=== PATIENT | female | born 1955 | race Caucasian/White ===

== ENCOUNTER 2019-05-24 04:21 | Emergency (ER) | payer MEDICARE, SELFPAY ==
[2019-05-24 04:30] VITALS: BP 151/72; PULSE 85; RESP 20; TEMP 36.8; O2SAT 100
--- NOTE | 2019-05-24 05:11 | ED.FEMALEGU ---
HPI - Female Genitourinary General Chief complaint: Urogenital-Female Stated complaint: UTI Time Seen by Provider: 05/24/19 04:30 History of Present Illness HPI Narrative: Patient is a 63-year-old female who presents ER with dysuria occurring over the last 5 days. She has recently developed hematuria. Reports fevers and chills a day ago but none in the last 24 hours. She is without back or flank pain. Patient has history of urinary retention and has to self caths 4 times a day. She has been unable to get into her PCP and the weighted in urgent care couple days ago was too long. No alleviating factors despite taking Azo. Related Data Allergies Allergy/AdvReac Type Severity Reaction Status Date / Time No Known Allergies Allergy Unknown Verified 05/24/19 04:39 Review of Systems Review of Systems: All systems reviewed & are unremarkable except as noted in HPI and below Constitutional: Constitutional: Reports chills Comments: Fevers Gastrointestinal: Gastrointestinal: Denies abdominal pain, Denies nausea and Denies vomiting Genitourinary: Genitourinary: Reports hematuria, Reports nocturia and Reports dysuria Musculoskeletal: Musculoskeletal: Denies back pain and Denies muscle cramps PMFSH Past Medical History Medical History (Updated 05/24/19 @ 05:39 by Aubrey Arzola MD) Diabetes type 2, controlled Hyperlipidemia Hypertension Urinary retention Surgical History Surgical History (Updated 05/24/19 @ 05:37 by Aubrey Arzola MD) H/O: hysterectomy S/P CABG (coronary artery bypass graft) Family History Family History (Updated 11/10/16 @ 08:09 by DOCTOR UNKNOWN) Sibling Diabetes mellitus Family history of malignant neoplasm of thyroid Mother Family history of emphysema Social History Social History Smoking status: Former smoker Alcohol intake: never Exam Narrative: Exam Narrative: GENERAL: Well-appearing, well-nourished, and in no acute distress. HEAD: Normocephalic, atraumatic. CHEST: Clear to auscultation. No respiratory distress. HEART: Regular rate and rhythm. Normal peripheral pulses. ABDOMEN: Soft, nontender, nondistended, no CVA tenderness. EXTREMITIES: Normal range of motion. No edema. SKIN: Warm, dry, no rash. NEURO: Alert and oriented x3. Course Course Emergency Course: Ceftriaxone IV. Discharge with Keflex. Vital Signs Vital signs: Vital Signs Temperature 98.2 F 03/11/20 04:30 Pulse Rate 85 05/24/19 04:30 Respiratory Rate 20 05/24/19 04:30 Blood Pressure 151/72 H 05/24/19 04:30 Pulse Oximetry 100 05/24/19 04:30 Temperature 98.2 F 05/24/19 04:30 Pulse Rate 85 05/24/19 04:30 Respiratory Rate 20 05/24/19 04:30 Blood Pressure 151/72 H 05/24/19 04:30 Pulse Oximetry 100 05/24/19 04:30 MDM - Female Genitourinary Lab Data Labs: Lab Results 05/24/19 Range/Units 04:55 Urine Color Pending Urine Appearance Pending Urine pH Pending Ur Specific Mineral Pending Urine Protein Pending Urine Glucose (UA) Pending Urine Ketones Pending Ur Blood (Man) Pending Urine Nitrate Pending Urine Bilirubin Pending Urine Urobilinogen Pending Leukocyte Esterase Rfl Pending Urine Characteristics Cloudy Discharge Plan Discharge Clinical Impression: Urinary tract infection Qualifiers: Urinary tract infection type: acute cystitis Hematuria presence: with hematuria Qualified Code(s): N30.01 - Acute cystitis with hematuria Patient Disposition: Home, Self-Care Condition: Stable Instructions: Antibiotic Form, Urinary Tract Infection in Women (ED) Additional Instructions: Return the ER if you have fever over 100.4 ?F, you develop severe back pain, you cannot keep down food or water, you have additional concerns. Make sure to follow-up with your primary care doctor and have her obtain the sensitivities of the urine culture that was collected today. Prescriptions: New cepha
[2019-05-24 05:14] LABS: Add Urine Microscopic? YES; Appearance Urine Cloudy (Clear); Bacteria Urine 3+ /hpf; Bilirubin Urine Negative (Negative); Blood Urine 3+ (Negative); Glucose Urine UA 3+ mg/dL (Negative); Ketones Urine 1+ mg/dL (Negative); Leukocyte Esterase Ur Trace LEU/UL (Negative); Nitrate Urine Positive (Negative); Protein Urine 3+ mg/dL (Negative); RBC Urine >75 /hpf (0-2); Specific Grav Ur 1.016 (1.001-1.035); Urobilinogen Urine Negative mg/dL (<2.0); WBC Urine >75 /hpf
[2019-05-24 05:20] LABS: Color Urine Light Brown (Yellow)
[2019-05-24] MEDS: MORPHINE SULFATE 4 MG/ML INJ IV PUSH (05:56)
[2019-05-24 06:56] VITALS: BP 142/88; PULSE 74; RESP 14; TEMP 36.6; O2SAT 99
== END 2019-05-24 06:58 | disposition home or self-care (01) ==
PROVIDERS: Emergency Provider Emergency Medicine; PCP Family Medicine
DX: N30.01 Acute cystitis with hematuria (principal); E11.9 Type 2 diabetes mellitus without complications; E78.5 Hyperlipidemia, unspecified; I10 Essential (primary) hypertension
CPT/HCPCS: 81001; 87077; 87086; 87088; 87186; 96365; 96375; 99284; J0696; J2270

== ENCOUNTER 2019-09-12 11:36 | Outpatient (CLI) | payer MEDICARE, SELFPAY ==
[2019-09-12 12:16] LABS: Alanine Aminotransferase 15 U/L (4-35); Albumin Level 3.9 g/dL (3.5-5.1); Alkaline Phosphatase 127 U/L (38-126); Aspartate Amino Transferase 18 U/L (14-36); Bilirubin,Total 0.1 mg/dL (0.2-1.3); Blood Urea Nitrogen 23 mg/dL (7-17); Carbon Dioxide 25 mmol/L (22-30); Chloride 100 mmol/L (98-107); Cholesterol 200 mg/dL (0-200); Estimated Glomerular Filt Rate 56; Glucose 400 mg/dL (65-105); HDL Direct 37 mg/dL; Potassium 4.6 mmol/L (3.4-5.0); Sodium 135 mmol/L (137-145); Triglycerides 170 mg/dL (<150)
[2019-09-12 12:18] LABS: Hemoglobin A1C 12.4 % (<5.7)
[2019-09-12 12:27] LABS: LDL Cholesterol Direct 132 mg/dL
[2019-09-12 12:38] LABS: Creatinine Urine 38.7 mg/dL
[2019-09-12 13:45] LABS: MALB Creatinine Ratio 1885.8 mg/g (0-30); Microalbumin Urine Random 729.8 mg/L (0-16.7)
== END 2019-09-12 11:37 | disposition home or self-care (01) ==
PROVIDERS: PCP Family Medicine; Visit Provider Family Medicine
DX: E11.22 Type 2 diabetes mellitus with diabetic chronic kidney disease (principal)
CPT/HCPCS: 36415; 72100; 80053; 80061; 82043; 83036

== ENCOUNTER 2019-09-12 12:13 | Outpatient (CLI) | payer MEDICARE, SELFPAY ==
--- NOTE | ~2019-09-12 | XR_ITS ---
XR lumbar spine 2-3V 09/12/2019 12:27 Indication: Back pain Procedure: 3 views lumbar spine Comparison: No prior studies for comparison. Findings: Normal lumbar lordosis. There is disc narrowing at L1-2, L2-3 and L5-S1. There are facet de generative changes at L4-5 and L5-S1. No acute fracture or traumatic malalignment. Pedicles intact. S acral foramen are symmetric. There is a right pseudoarticulation at L5-S1. Prominent marginal osteoph ytes at multiple levels. Impression: 1: Moderate lumbar spondylosis. Reviewed, dictated and finalized at location A. Impression: 1: Moderate lumbar spondylosis.
== END 2019-09-12 12:14 | disposition home or self-care (01) ==
LOC: ANHIMG 12:16
PROVIDERS: PCP Family Medicine; Visit Provider Family Medicine
DX: M54.41 Lumbago with sciatica, right side (principal); M47.816 Spondylosis without myelopathy or radiculopathy, lumbar region
CPT/HCPCS: 72100

== ENCOUNTER 2019-12-15 10:55 | Outpatient (CLI) | payer MEDICARE, SELFPAY ==
[2019-12-15 11:34] LABS: Add Urine Microscopic? YES; Appearance Urine Turbid (Clear); Bilirubin Urine Negative (Negative); Blood Urine 2+ (Negative); Color Urine Yellow (Yellow); Glucose Urine UA 3+ mg/dL (Negative); Ketones Urine Negative (Negative); Leukocyte Esterase Ur 3+ LEU/UL (Negative); Nitrate Urine Negative (Negative); Protein Urine 2+ mg/dL (Negative); RBC Urine 21-50 /hpf (0-2); Specific Grav Ur 1.013 (1.001-1.035); Squamous Epithelial Cell Urine Rare /hpf (Few); Urobilinogen Urine Negative mg/dL (<2.0); WBC Clumps Urine Present /HPF; WBC Urine >75 /hpf
== END 2019-12-15 10:56 | disposition home or self-care (01) ==
LOC: ANHLAB 11:00
PROVIDERS: PCP Family Medicine; Visit Provider Family Medicine
DX: N39.0 Urinary tract infection, site not specified (principal)
CPT/HCPCS: 81001; 87077; 87086; 87088; 87186

== ENCOUNTER 2020-05-02 11:51 | Outpatient (CLI) | payer MEDICARE, SELFPAY ==
[2020-05-02 12:26] LABS: Hemoglobin A1C 12.4 % (<5.7)
[2020-05-02 12:35] LABS: Alanine Aminotransferase 15 U/L (4-35); Albumin Level 3.8 g/dL (3.5-5.1); Alkaline Phosphatase 98 U/L (38-126); Anion Gap 4 mmol/L (8-16); Aspartate Amino Transferase 22 U/L (14-36); Bilirubin,Total 0.3 mg/dL (0.2-1.3); Blood Urea Nitrogen 19 mg/dL (7-17); Calcium 8.6 mg/dL (8.4-10.2); Carbon Dioxide 26 mmol/L (22-30); Chloride 107 mmol/L (98-107); Cholesterol 280 mg/dL (0-200); Estimated Glomerular Filt Rate 50; Glucose 231 mg/dL (65-105); HDL Direct 40 mg/dL; Sodium 137 mmol/L (137-145); Triglycerides 279 mg/dL (<150)
[2020-05-02 12:40] LABS: LDL Cholesterol Direct 177 mg/dL
[2020-05-02 12:44] LABS: Potassium 4.4 mmol/L (3.4-5.0)
[2020-05-02 17:34] LABS: Microalbumin Urine Random > 1140.0 mg/L (0-16.7)
== END 2020-05-02 11:52 | disposition home or self-care (01) ==
LOC: ANHLAB 11:56
PROVIDERS: PCP Family Medicine; Visit Provider Family Medicine
DX: E11.22 Type 2 diabetes mellitus with diabetic chronic kidney disease (principal)
CPT/HCPCS: 36415; 80053; 80061; 82043; 83036

== ENCOUNTER 2020-06-18 13:48 | Outpatient (CLI) | payer MEDICARE, SELFPAY ==
--- NOTE | ~2020-06-18 | US_ITS ---
EXAMINATION: US renal BI DATE: 06/18/2020 15:10 INDICATION: Proteinuria. Chronic kidney disease. TECHNIQUE: Multiple ultrasound grayscale images of the kidneys were obtained. COMPARISON: None. FINDINGS: The right kidney measures 10.0 x 4.3 x 5.3 cm. The left kidney measures 11.8 x 6.6 x 6.8 cm. The kidn eys demonstrate normal parenchymal echogenicity. There is no hydronephrosis. The bladder is normal. IMPRESSION: 1. Normal kidneys. No hydronephrosis. Reviewed, dictated and finalized at location A.
== END 2020-06-18 13:49 ==
PROVIDERS: Visit Provider Internal Medicine Nephrology
DX: R80.8 Other proteinuria (principal); E11.29 Type 2 diabetes mellitus with other diabetic kidney complication; I12.9 Hypertensive chronic kidney disease with stage 1 through stage 4 chronic kidney disease, or unspecified chronic kidney disease
CPT/HCPCS: 76775

== ENCOUNTER 2020-07-02 10:11 | Outpatient (CLI) | payer MEDICARE, SELFPAY ==
[2020-07-02 11:04] LABS: Albumin Level 3.9 g/dL (3.5-5.1); Anion Gap 8 mmol/L (8-16); Blood Urea Nitrogen 30 mg/dL (7-17); Calcium 8.6 mg/dL (8.4-10.2); Carbon Dioxide 25 mmol/L (22-30); Chloride 101 mmol/L (98-107); Estimated Glomerular Filt Rate 45; Glucose 407 mg/dL (65-105); Phosphorus 4.9 mg/dL (2.5-4.5); Potassium 4.9 mmol/L (3.4-5.0); Sodium 134 mmol/L (137-145)
[2020-07-02 11:08] LABS: Total Protein Urine Random 171 mg/dL
[2020-07-02 11:10] LABS: Sodium Urine Random 38 meq/L
[2020-07-02 11:15] LABS: Complement C3 110 mg/dL (88-165)
[2020-07-02 11:18] LABS: Eosinophil Urine Rare % (None Seen)
[2020-07-08 04:04] LABS: Creatinine, Random Urine 37 mg/dL (20-275); Total Protein/Creatinine Ratio 3946 mg/g creat (21-161)
[2020-07-08 06:20] LABS: Albumin 3.5 g/dL (3.8-4.8); Alpha 1 Globulin 0.3 g/dL (0.2-0.3); Alpha 2 Globulin 0.8 g/dL (0.5-0.9); Beta 1 Globulin 0.5 g/dL (0.4-0.6); Gamma Globulin 0.9 g/dL (0.8-1.7); Protein, Total 6.5 g/dL (6.1-8.1)
[2020-07-08 06:23] LABS: Anti Glomerular Basement Memb <1.0 AI (<1.0)
[2020-07-09 11:38] LABS: ANCA Screen Negative (Negative)
== END 2020-07-02 10:12 | disposition home or self-care (01) ==
PROVIDERS: PCP Family Medicine; Visit Provider Internal Medicine Nephrology
DX: R80.8 Other proteinuria (principal); E11.29 Type 2 diabetes mellitus with other diabetic kidney complication; I12.9 Hypertensive chronic kidney disease with stage 1 through stage 4 chronic kidney disease, or unspecified chronic kidney disease; N18.31 Chronic kidney disease, stage 3a
CPT/HCPCS: 36415; 80069; 82570; 83520; 84155; 84156; 84165; 84166; 84300; 85999; 86021; 86038; 86160; 86225

== ENCOUNTER 2020-07-23 14:45 | Outpatient (RCR) | payer MEDICARE, SELFPAY ==
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
--- NOTE | 2020-07-18 08:22 | PCPTNOTE ---
Patient called & cancelled scheduled appointment this date due to sickness.
--- NOTE | 2020-07-25 10:36 | PCPTNOTE ---
Patient did not show up for scheduled appointment this date. Attempted to call pt, but unable to leave voicemail message.
--- NOTE | 2020-07-25 11:52 | PCPTNOTE ---
Pt called to cancel her remaining her visits due to family emergency.
--- NOTE | 2020-08-14 08:11 | PCPTNOTE ---
Admitting Provider: Attending Provider: Lisa German, Patient:Kylie Marquez Date of :1955 Discharge Note Patient has not returned for any further treatments since 07/23/2020, therefore she will be discharged at this time. Patient?s initial visit was on 06/11/2020 and she had a total of 12 visits. She cancelled her remaining therapy visits due to family obligations. The goals have been partially met since no change in function since last update. Thank you for referring this patient to [facility]. Please review, sign, date and return this discharge summary PEGGY. I have been updated about the patient's current status and I agree with discharge from the above service at this time. Referring Physician Date
== END 2020-08-14 12:55 | disposition home or self-care (01) ==
LOC: ANHPT 14:45
PROVIDERS: PCP Family Medicine; Referring Provider Family Medicine; Visit Provider Family Medicine
DX: M47.896 Other spondylosis, lumbar region (principal)
CPT/HCPCS: 97014; 97110; 97140; 97162; 97530; G0283

== ENCOUNTER 2020-12-17 12:38 | Outpatient (CLI) | payer MEDICARE, SELFPAY ==
[2020-12-17 14:12] LABS: Parathyroid Intact 42.6 pg/mL (7.5-53.5)
[2020-12-17 14:26] LABS: Albumin Level 3.8 g/dL (3.5-5.1); Anion Gap 10 mmol/L (8-16); Blood Urea Nitrogen 23 mg/dL (7-17); Calcium 9.2 mg/dL (8.4-10.2); Carbon Dioxide 24 mmol/L (22-30); Chloride 98 mmol/L (98-107); Estimated Glomerular Filt Rate 45; Glucose 543 mg/dL (65-110); Phosphorus 4.6 mg/dL (2.5-4.5); Potassium 4.8 mmol/L (3.4-5.0); Sodium 132 mmol/L (137-145); Vitamin D 25 Hydroxy 20.2 ng/mL
[2020-12-17 15:14] LABS: Creatinine Urine 45.1 mg/dL
[2020-12-17 15:42] LABS: Total Protein Urine Random 307 mg/dL; Ur Ttl Prot Creatinine Ratio 6.81 mg/mg (0-0.20)
== END 2020-12-17 12:39 | disposition home or self-care (01) ==
PROVIDERS: PCP Family Medicine; Visit Provider Internal Medicine Nephrology
DX: I12.9 Hypertensive chronic kidney disease with stage 1 through stage 4 chronic kidney disease, or unspecified chronic kidney disease (principal); N18.31 Chronic kidney disease, stage 3a; E11.29 Type 2 diabetes mellitus with other diabetic kidney complication; R80.0 Isolated proteinuria; R53.81 Other malaise
CPT/HCPCS: 36415; 80069; 82306; 82570; 83970; 84156

== ENCOUNTER 2021-06-04 10:05 | Outpatient (CLI) | payer MEDICARE, SELFPAY ==
[2021-06-04 10:39] LABS: Hemoglobin A1C 11.1 % (<5.7)
== END 2021-06-04 10:06 | disposition home or self-care (01) ==
LOC: ANHLAB 10:07
PROVIDERS: PCP Physician Assistant; Visit Provider Physician Assistant
DX: E11.9 Type 2 diabetes mellitus without complications (principal)
CPT/HCPCS: 36415; 83036

== ENCOUNTER 2021-06-19 12:14 | Outpatient (CLI) | payer MEDICARE, SELFPAY ==
[2021-06-19 12:57] LABS: Albumin Level 3.7 g/dL (3.5-5.1); Anion Gap 8 mmol/L (8-16); Blood Urea Nitrogen 26 mg/dL (7-17); Carbon Dioxide 23 mmol/L (22-30); Chloride 107 mmol/L (98-107); Estimated Glomerular Filt Rate 38; Glucose 148 mg/dL (65-110); Phosphorus 5.2 mg/dL (2.5-4.5); Potassium 4.1 mmol/L (3.4-5.0); Sodium 138 mmol/L (137-145)
[2021-06-19 13:30] LABS: Total Protein Urine Random > 600 mg/dL
[2021-06-19 13:33] LABS: Vitamin D 25 Hydroxy 20.2 ng/mL
== END 2021-06-19 12:15 | disposition home or self-care (01) ==
PROVIDERS: PCP Physician Assistant; Visit Provider Internal Medicine Nephrology
DX: N18.31 Chronic kidney disease, stage 3a (principal); R80.8 Other proteinuria; E11.29 Type 2 diabetes mellitus with other diabetic kidney complication; E55.9 Vitamin D deficiency, unspecified; I12.9 Hypertensive chronic kidney disease with stage 1 through stage 4 chronic kidney disease, or unspecified chronic kidney disease
CPT/HCPCS: 36415; 80069; 82306; 82570; 84156

== ENCOUNTER 2021-07-14 14:55 | Emergency (ER) | payer MEDICARE, SELFPAY ==
[2021-07-14] VITALS (32 sets, daily range): BP systolic 134–184; BP diastolic 60–104; PULSE 73–91; RESP 11–19; TEMP 36.8; O2SAT 97–100
--- NOTE | ~2021-07-14 | XR_ITS ---
EXAMINATION: XR chest 2V DATE: 07/14/2021 16:04 INDICATION: Weakness. Lower leg swelling. TECHNIQUE: Frontal and lateral views of the chest were obtained. COMPARISON: Chest 2 views 08/21/2017 FINDINGS: The chest demonstrates clear lungs without pneumonia, pleural effusion, or pneumothorax. Th e heart size is normal. Median sternotomy wires and mediastinal surgical clips are seen, likely from prior coronary artery bypass grafting. IMPRESSION: 1. No acute cardiopulmonary disease. Reviewed, dictated and finalized at location B.
--- NOTE | 2021-07-14 15:09 | ECG_ITS ---
Measurements Intervals [place] Rate: 86 P: [place]: 0 QRS: 65 QRSD: 87 T: 40 QT: 318 QTc: 380 Interpretive Statements ATRIAL FLUTTER/TACHYCARDIA ANTEROSEPTAL INFARCT, AGE INDETERMINATE BORDERLINE ST-T WAVE ABNORMALITY- INF/LAT LEADS ABNORMAL ECG Electronically Signed On 07-14-2021 15:37:29 CDT by Deondre Roldan D.O.
[2021-07-14 15:23] LABS: Basophils Percent Auto 0.6 % (0.2-1.2); Eosinophils Absolute Auto 0.2 K/mm3 (0-0.3); Eosinophils Percent Auto 2.4 % (0-4.4); Hematocrit 37.2 % (37.0-47.0); Hemoglobin 11.7 g/dL (12.0-15.0); Immature Granulocyte Absolute 0.02 K/mm3 (0.00-0.031); Immature Granulocyte Percent A 0.3 % (0-0.5); Lymphocytes Absolute Auto 1.91 K/mm3 (0.9-3.2); Lymphocytes Percent Auto 27.4 % (18.3-44.2); Mean Corpuscular HGB Conc 31.5 g/dl (32-36); Mean Corpuscular Hemoglobin 28.7 pg (26-34); Mean Corpuscular Volume 91.2 fl (80-100); Mean Platelet Volume 10.4 fl (7.4-10.4); Monocytes Absolute Auto 0.5 K/mm3 (0.1-0.6); Monocytes Percent Auto 6.6 % (2.6-8.5); Neutrophils Absolute Auto 4.4 K/mm3 (1.3-6.7); Neutrophils Percent Auto 62.7 % (45.5-73.1); Platelet Count Result 277 k/mm3 (150-375); Red Blood Count 4.08 M/mm3 (4.2-5.4); Red Cell Distribution Width 13.2 % (11.5-14.5)
[2021-07-14 15:37] LABS: Alanine Aminotransferase 26 U/L (4-35); Albumin Level 3.8 g/dL (3.5-5.1); Alkaline Phosphatase 131 U/L (38-126); Anion Gap 10 mmol/L (8-16); Aspartate Amino Transferase 29 U/L (14-36); Bilirubin,Total 0.3 mg/dL (0.2-1.3); Blood Urea Nitrogen 28 mg/dL (7-17); Calcium 9.3 mg/dL (8.4-10.2); Carbon Dioxide 21 mmol/L (22-30); Chloride 105 mmol/L (98-107); Estimated CRCL calculation 59 ml/min; Estimated Glomerular Filt Rate 45; Glucose 189 mg/dL (65-110); Potassium 4.3 mmol/L (3.4-5.0); Sodium 136 mmol/L (137-145)
[2021-07-14 15:50] LABS: Prothrombin Time 13.1 Seconds (11.1-14.7)
[2021-07-14 15:51] LABS: Partial Thromboplastin Time 26.4 SECONDS (22.3-36.8)
[2021-07-14 17:35] LABS: Appearance Urine Cloudy (Clear); Bilirubin Urine Negative (Negative); Blood Urine 2+ (Negative); Color Urine Yellow (Yellow); Glucose Urine UA 1+ mg/dL (Negative); Ketones Urine Negative (Negative); Leukocyte Esterase Ur 3+ LEU/UL (Negative); Nitrate Urine Negative (Negative); Protein Urine 3+ mg/dL (Negative); Urobilinogen Urine 0.2 mg/dL (<2.0)
[2021-07-14 17:50] LABS: Bacteria Urine 3+ /hpf; RBC Urine >75 /hpf (0-2); Squamous Epithelial Cell Urine Occasional /hpf (Few); WBC Clumps Urine Present /HPF; WBC Urine >75 /hpf
[2021-07-14 17:59] LABS: Add Urine Microscopic? YES
[2021-07-14 19:03] LABS: NT Pro B Type Natriuretic Pept 1620 pg/mL (5-100)
--- NOTE | 2021-07-14 19:14 | ED.WEAKNESS ---
HPI - Weakness General Chief complaint: Weakness Stated complaint: swelling to legs, uti symptoms Time Seen by Provider: 07/14/21 18:07 Source: patient Mode of arrival: ambulatory History of Present Illness HPI Narrative: 65-year-old female presents today with complaints of weakness, feeling off balance, and bilateral lower extremity swelling since . Patient has not previously been seen for any of these issues. Patient has a history of CABG, hyperlipidemia, and hypertension. Patient currently denies any chest pain, shortness of breath, difficulty in breathing, cough, runny nose, fevers, body aches, but does endorse urinary symptoms: Urinary frequency and cloudy urine. Patient does straight cath at home and noticed it is painful which is unusual for her. Related Data Allergies Allergy/AdvReac Type Severity Reaction Status Date / Time No Known Allergies Allergy Unknown Verified 05/24/19 04:39 Review of Systems Review of Systems: CONSTITUTIONAL: Denies fever, chills, or sweats. EYES: Denies visual changes, redness, or discharge. ENT: Denies rhinorrhea, congestion, sore throat, or otalgia. CARDIOVASCULAR: Bilateral lower extremity edema +2-3 pitting. Denies chest pain, palpitations. RESPIRATORY: Denies cough or dyspnea. GASTROINTESTINAL: Denies abdominal pain, nausea, vomiting, or diarrhea. GENITOURINARY: Frequency and painful straight cath. Denies dysuria. SKIN: Denies rash or itching. MUSCULOSKELETAL: Denies back pain, joint pain, or myalgia. NEUROLOGIC: Denies headache, numbness, dizziness, or weakness. PSYCHIATRIC: Denies anxiety or depression. [facility] Past Medical History Medical History (Updated 07/15/21 @ 00:31 by Stefany Evans APRN) Diabetes type 2, controlled Hyperlipidemia Hypertension Urinary retention Surgical History Surgical History (Updated 05/24/19 @ 05:37 by Aubrey Arzola MD) H/O: hysterectomy S/P CABG (coronary artery bypass graft) Family History Family History (Updated 11/10/16 @ 08:09 by DOCTOR UNKNOWN) Sibling Diabetes mellitus Family history of malignant neoplasm of thyroid Mother Family history of emphysema Social History Social History Smoking status: Former smoker Alcohol intake: never Exam Narrative: GENERAL: Well-appearing, well-nourished, and in no acute distress. HEAD: Normocephalic, atraumatic. EYES: PERRLA and EOMI. ENT: Nares clear, no rhinorrhea or epistaxis. Mucous membranes moist. Oropharynx without tonsillar hypertrophy exudate or other lesions. Bilateral TMs pearly clancy nonbulging NECK: Supple. No adenopathy or masses. No carotid bruits or JVD CHEST: Clear to auscultation. No respiratory distress. No wheezes rales or rhonchi HEART: Regular rate and rhythm. No murmur heard. Normal peripheral pulses. ABDOMEN: Soft, nontender, nondistended, normal active bowel sounds. EXTREMITIES: +2-3 bilateral lower extremity pitting edema up to mid thigh. Normal range of motion. SKIN: Warm, dry, no rash. NEURO: No focal deficits. Alert and oriented x3. PSYCH: Normal mood and affect. 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 Lyn in agreement with plan for discharge home on HCTZ due to patient previously being on it and their office is will follow up with the patient. Vital Signs Vital signs: Vital Signs Temperature 36.8 C 07/14/21 15:06 Pulse Rate 91 07/14/21 15:06 Respiratory Rate 18 07/14/21 15:06 Blood Pressure 184/104 H 07/14/21 15:06 Pulse Oximetry 100 07/14/21 15:06 Temperature 36.8 C 07/14/21 15:06 Pulse Rate 79 07/14/21 22:54 Respiratory Rate 17 07/14/21 22:54 Blood Pressure 178/98 H 07/14/21 22:54 Pulse Oximetry 97 07/14/21 19:16 MDM - Weakness MDM Narrative Medical decision making narrative: HPI as noted White count 7.0, hemoglobin 11.7 sodium 136, potassium 4.3, chloride 105, BUN 28, creatinine 1.2, GFR 45, BNP 1620. Urine cloudy and positiv
[2021-07-14 19:38] LABS: Glucose Point of Care 57 mg/dl (65-105)
[2021-07-14 20:21] LABS: Troponin I 0.013 ng/mL (0.000-0.034)
[2021-07-14] MEDS: FUROSEMIDE INJ 40 MG/4 ML VIAL IV PUSH (22:48)
== END 2021-07-14 23:02 | disposition home or self-care (01) ==
PROVIDERS: Emergency Medicine; Emergency Provider Nurse Practitioner Family; PCP Physician Assistant
DX: N39.0 Urinary tract infection, site not specified (principal); M79.89 Other specified soft tissue disorders; I10 Essential (primary) hypertension; E11.9 Type 2 diabetes mellitus without complications; E78.5 Hyperlipidemia, unspecified; Z95.1 Presence of aortocoronary bypass graft; I48.92 Unspecified atrial flutter; R94.31 Abnormal electrocardiogram [ECG] [EKG]
CPT/HCPCS: 36415; 71046; 80053; 81001; 82948; 83880; 84484; 85025; 85610; 85730; 87077; 87086; 87186; 93005; 96365; 96375; 99284; J0696; J1940

== ENCOUNTER 2021-08-13 16:26 | Outpatient (CLI) | payer MEDICARE, SELFPAY ==
[2021-08-13 17:06] LABS: Basophils Absolute Auto 0.1 K/mm3 (0.0-0.1); Basophils Percent Auto 0.6 % (0.2-1.2); Eosinophils Absolute Auto 0.2 K/mm3 (0-0.3); Eosinophils Percent Auto 2.2 % (0-4.4); Hematocrit 39.2 % (37.0-47.0); Hemoglobin 12.8 g/dL (12.0-15.0); Immature Granulocyte Absolute 0.04 K/mm3 (0.00-0.031); Immature Granulocyte Percent A 0.4 % (0-0.5); Lymphocytes Absolute Auto 3.16 K/mm3 (0.9-3.2); Lymphocytes Percent Auto 33.3 % (18.3-44.2); Mean Corpuscular HGB Conc 32.7 g/dl (32-36); Mean Corpuscular Hemoglobin 28.5 pg (26-34); Mean Corpuscular Volume 87.3 fl (80-100); Mean Platelet Volume 10.7 fl (7.4-10.4); Monocytes Absolute Auto 0.5 K/mm3 (0.1-0.6); Neutrophils Absolute Auto 5.6 K/mm3 (1.3-6.7); Neutrophils Percent Auto 58.5 % (45.5-73.1); Platelet Count Result 276 k/mm3 (150-375); Red Blood Count 4.49 M/mm3 (4.2-5.4); Red Cell Distribution Width 13.3 % (11.5-14.5); White Blood Count 9.5 K/mm3 (4.5-10.0)
[2021-08-13 17:16] LABS: Alanine Aminotransferase 18 U/L (6-35); Albumin Level 4.3 g/dL (3.5-5.1); Alkaline Phosphatase 119 U/L (38-126); Anion Gap 9 mmol/L (8-16); Aspartate Amino Transferase 29 U/L (14-36); Bilirubin,Total 0.2 mg/dL (0.2-1.3); Blood Urea Nitrogen 44 mg/dL (7-17); Carbon Dioxide 26 mmol/L (22-30); Chloride 98 mmol/L (98-107); Cholesterol 211 mg/dL (0-200); Estimated Glomerular Filt Rate 22; Glucose 301 mg/dL (65-110); HDL Direct 42 mg/dL; Potassium 4.7 mmol/L (3.4-5.0); Sodium 133 mmol/L (137-145); Triglycerides 354 mg/dL (<150)
[2021-08-13 17:27] LABS: LDL Cholesterol Direct 106 mg/dL
[2021-08-13 17:44] LABS: Thyroid Stimulating Hormone 0.361 uIU/mL (0.465-4.680)
[2021-08-13 17:49] LABS: Hemoglobin A1C 9.5 % (<5.7)
[2021-08-13 18:26] LABS: Folic Acid > 20.0 ng/mL (2.76->20)
[2021-08-13 18:34] LABS: Free T4 Free Thyroxine 1.28 ng/mL (0.78-2.19)
[2021-08-16 04:27] LABS: Triiodothyronine T3 Free 2.6 pg/mL (2.3-4.2)
[2021-08-16 04:58] LABS: Thyroid Peroxidase Antibodies <1 IU/mL (<9)
== END 2021-08-13 16:27 | disposition home or self-care (01) ==
LOC: ANHLAB 16:29
PROVIDERS: PCP Physician Assistant; Visit Provider Internal Medicine Endocrinology, Diabetes & Metabolism
DX: E11.65 Type 2 diabetes mellitus with hyperglycemia (principal); R53.83 Other fatigue; E78.5 Hyperlipidemia, unspecified
CPT/HCPCS: 36415; 80053; 80061; 82607; 82746; 83036; 84439; 84443; 84481; 85025; 86376

== ENCOUNTER 2021-08-14 10:46 | Outpatient (CLI) | payer MEDICARE, SELFPAY ==
[2021-08-14 12:05] LABS: Creatinine Urine 34.9 mg/dL
[2021-08-14 14:58] LABS: MALB Creatinine Ratio 1798.9 mg/g (0-30); Microalbumin Urine Random 627.8 mg/L (0-16.7)
== END 2021-08-14 10:47 | disposition home or self-care (01) ==
LOC: ANHLAB 10:52
PROVIDERS: PCP Physician Assistant; Visit Provider Internal Medicine Endocrinology, Diabetes & Metabolism
DX: E11.65 Type 2 diabetes mellitus with hyperglycemia (principal); R53.83 Other fatigue; E78.5 Hyperlipidemia, unspecified
CPT/HCPCS: 82043

== ENCOUNTER 2021-09-21 22:24 | Inpatient (IN) | payer MEDICARE, SELFPAY ==
--- NOTE | ~2021-09-21 | CT_ITS ---
EXAMINATION: CT foot RT wo con DATE: 09/22/2021 00:21 INDICATION: Right foot ulcer. TECHNIQUE: Computed tomography (CT) of the right foot and ankle was performed without intravenous con trast. Automated exposure control and iterative reconstruction technique were employed. The dose-deepak th product was 630.76 mGy-cm. COMPARISON: None FINDINGS: There is an ulcer of the lateral forefoot with soft tissue gas. There is severe fatty atrop hy of the musculature. There is a comminuted fracture of head of fifth metatarsal. There are erosions of base of fifth proximal phalanx. There is mild osteoarthritis of some of the interphalangeal joint s and midfoot joints. There are enthesophytes at the posterior plantar aspects of calcaneal tuberosit y. IMPRESSION: 1. Acute osteomyelitis involving the fifth metatarsal and base of fifth proximal phalanx with comminu jenna fracture of head of fifth metatarsal. Reviewed, dictated and finalized at location A. IMPRESSION: 1. Acute osteomyelitis involving the fifth metatarsal and base of fifth proxima l phalanx with comminuted fracture of head of fifth metatarsal.
[2021-09-21 22:28] VITALS: BP 130/62; PULSE 114; RESP 20; TEMP 37.1; O2SAT 100
[2021-09-21 23:00] VITALS: BP 135/75; PULSE 101; RESP 20; O2SAT 100
[2021-09-21 23:30] LABS: Basophils Absolute Auto 0.1 K/mm3 (0.0-0.1); Basophils Percent Auto 0.4 % (0.2-1.2); Hematocrit 30.2 % (37.0-47.0); Hemoglobin 9.9 g/dL (12.0-15.0); Immature Granulocyte Absolute 0.16 K/mm3 (0.00-0.031); Immature Granulocyte Percent A 1.1 % (0-0.5); Lymphocytes Absolute Auto 1.21 K/mm3 (0.9-3.2); Lymphocytes Percent Auto 8.6 % (18.3-44.2); Mean Corpuscular HGB Conc 32.8 g/dl (32-36); Mean Corpuscular Hemoglobin 27.4 pg (26-34); Mean Corpuscular Volume 83.7 fl (80-100); Monocytes Absolute Auto 0.8 K/mm3 (0.1-0.6); Monocytes Percent Auto 5.7 % (2.6-8.5); Neutrophils Absolute Auto 11.8 K/mm3 (1.3-6.7); Neutrophils Percent Auto 84.2 % (45.5-73.1); Platelet Count Result 490 k/mm3 (150-375); Red Blood Count 3.61 M/mm3 (4.2-5.4); Red Cell Distribution Width 13.6 % (11.5-14.5)
[2021-09-21] MEDS: SODIUM CHLORIDE 0.9% IV 1,000 ML 999 ML IV CONT (23:30)
--- NOTE | 2021-09-21 23:32 | ED.WOUNDLAC ---
HPI - Wound/Laceration General Chief Complaint: Wound/Laceration Stated Complaint: wound to right foot Time Seen by Provider: 09/21/21 22:51 Source: patient History of Present Illness HPI narrative: Patient presents with a right foot wound. Patient reports history of diabetes has neuropathy she is noted a black spot on her foot for past month was seen by her wool spotter there was concern for bone infection she was scheduled for a bone scan her symptoms got progressively worse and noted and family noted purulent drainage to the came to the ER for further evaluation. Patient reports her wound does not hurt denies any fevers chills cough congestion. Family also noted that her toe is very discolored. Related Data Home Medications Medication Instructions Recorded Confirmed amoxicillin 500 mg-potassium tablet 09/21/21 clavulanate 125 mg tablet apixaban 5 mg tablet (Eliquis) 5 mg BID 09/21/21 atorvastatin 40 mg tablet 40 tablet DAILY 09/21/21 furosemide 40 mg tablet 40 mg BID 09/21/21 lisinopril 40 mg tablet tablet 09/21/21 Allergies Allergy/AdvReac Type Severity Reaction Status Date / Time No Known Allergies Allergy Unknown Verified 09/21/21 23:25 Review of Systems Review of Systems: CONSTITUTIONAL: Denies fever, chills, or sweats. EYES: Denies visual changes, redness, or discharge. ENT: Denies rhinorrhea, congestion, sore throat, or otalgia. CARDIOVASCULAR: Denies chest pain, palpitations, or edema. RESPIRATORY: Denies cough or dyspnea. GASTROINTESTINAL: Denies abdominal pain, nausea, vomiting, or diarrhea. GENITOURINARY: Denies dysuria or hematuria. SKIN: Denies rash or itching. MUSCULOSKELETAL: Denies back pain, joint pain, or myalgia. NEUROLOGIC: Denies headache, numbness, dizziness, or weakness. PSYCHIATRIC: Denies anxiety or depression. All systems reviewed & are unremarkable except as noted in HPI and below PMFSH Past Medical History Medical History (Updated 09/22/21 @ 03:47 by Demetra Gonzales DO) Diabetes type 2, controlled Hyperlipidemia Hypertension Urinary retention Surgical History Surgical History H/O: hysterectomy S/P CABG (coronary artery bypass graft) Family History Family History Sibling Diabetes mellitus Family history of malignant neoplasm of thyroid Mother Family history of emphysema Social History Social History Smoking status: Former smoker Alcohol intake: never Exam Narrative: GENERAL: Well-appearing, well-nourished, and in no acute distress. HEAD: Normocephalic, atraumatic. EYES: PERRLA and EOMI. ENT: Nares clear, no rhinorrhea or epistaxis. Mucous membranes moist. NECK: Supple. No masses. No JVD EXTREMITIES: Large open wound on the lateral distal aspect of the right foot on the plantar surface there is a cavitary lesion that probes to bone with purulent drainage. There is surrounding erythema to the right foot the fifth digit on the right foot is discolored and has a dark hue. SKIN: Warm, dry, no rash. NEURO: No focal deficits. Alert and oriented x3. PSYCH: Normal mood and affect. Course Reevaluation(s) Reevaluation #1: Patient resting comfortable results plan with patient. Patient is comfortable inpatient plan. Patient be admitted to the hospitalist team General surgery consulted and will follow along. Date: 09/22/21 Time: 02:32 Vital Signs Vital signs: Vital Signs Temperature 37.1 C 09/21/21 22:28 Pulse Rate 114 H 09/21/21 22:28 Respiratory Rate 20 09/21/21 22:28 Blood Pressure 130/62 09/21/21 22:28 Pulse Oximetry 100 09/21/21 22:28 Temperature 37.1 C 09/21/21 22:28 Pulse Rate 83 09/22/21 03:09 Respiratory Rate 20 09/22/21 03:09 Blood Pressure 119/63 09/22/21 03:09 Pulse Oximetry 96 09/22/21 03:09 MDM - Wound/Laceration MDM Narrative Me
[2021-09-21 23:38] LABS: Lactic Acid Reflex 1.1 mmol/L (0.7-2.0)
[2021-09-21 23:39] LABS: Alanine Aminotransferase 13 U/L (6-35); Albumin Level 3.4 g/dL (3.5-5.1); Alkaline Phosphatase 122 U/L (38-126); Anion Gap 11 mmol/L (8-16); Aspartate Amino Transferase 17 U/L (14-36); Bilirubin,Total 0.3 mg/dL (0.2-1.3); Blood Urea Nitrogen 39 mg/dL (7-17); Calcium 8.7 mg/dL (8.4-10.2); Carbon Dioxide 20 mmol/L (22-30); Chloride 97 mmol/L (98-107); Estimated CRCL calculation 28 ml/min; Estimated Glomerular Filt Rate 20; Glucose 252 mg/dL (65-110); Potassium 3.8 mmol/L (3.4-5.0); Sodium 128 mmol/L (137-145)
[2021-09-21] MEDS: PIPERACILLIN/TAZOBACTAM SOD 4.5 GM in SODIUM CHLORIDE 0.9% IV 100 ML 200 ML IVPB (23:39)
[2021-09-22] VITALS (13 sets, daily range): BP systolic 78–150; BP diastolic 44–73; PULSE 76–97; RESP 14–20; TEMP 36.4–37.5; O2SAT 96–100; BMI 32.7
--- NOTE | 2021-09-22 03:43 | PM.IMHP ---
H&P: HPI History of Present Illness Date/Time: 09/22/21 03:43 Chief Complaint: Diabetic foot ulcer Narrative: 66-year-old female past medical history significant for diabetes, chronic kidney disease, hyperlipidemia, hypertension, coronary artery disease with history of CABG is presenting with a right foot ulcer. She admits to having history of diabetes with neuropathy and that she saw black spot on her foot for last month. 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 However, her symptoms worsened in family noted purulence drainage coming from the wound and therefore they referred her to the ER. She denies any fevers or chills. No nausea vomiting diarrhea. No chest pain shortness a breath. She states there is no pain in her wound at this time. In the ER, General surgery was consulted and CT scan was done showing possible osteomyelitis. Broad-spectrum antibiotics were initiated with vancomycin, Zosyn and imipenem by the ER, this was changed to vanc and cefepime on the floor. Review of Systems Review of Systems: 12 point review of systems was assessed and was negative except as noted in the HPI [facility] Past Medical History Medical History (Updated 09/22/21 @ 05:33 by Demetra Gonzales DO) Diabetes type 2, controlled Hyperlipidemia Hypertension Urinary retention Surgical History Surgical History H/O: hysterectomy S/P CABG (coronary artery bypass graft) Family History Family History Sibling Diabetes mellitus All 4 siblings Family history of malignant neoplasm of thyroid sister Mother Family history of emphysema Father Acute myocardial infarction Social History Social History Smoking packs per day: 0.5 Smoking cigarettes per day: 10.0 Years smoked: 30 Smoking pack-years: 15.00 Smoking status: Former smoker Tobacco type: cigarettes Alcohol intake: never Substance use: never Spiritual care concerns: No Meds Home Medications and Allergies Home Medications Medication Instructions Recorded Confirmed Type famotidine 40 mg tablet 40 mg PO DAILY #90 tabs 09/06/19 Rx amoxicillin 500 mg-potassium tablet 09/21/21 History clavulanate 125 mg tablet apixaban 5 mg tablet (Eliquis) 5 mg BID 09/21/21 History atorvastatin 40 mg tablet 40 tablet DAILY 09/21/21 History furosemide 40 mg tablet 40 mg BID 09/21/21 History lisinopril 40 mg tablet tablet 09/21/21 History insulin degludec 100 unit/mL (3 32 unit subcut HS 09/22/21 09/22/21 History mL) subcutaneous pen (Tresiba FlexTouch U-100 insulin) semaglutide 0.25 mg or 0.5 mg (2 0.5 mg subcut WEEKLY 09/22/21 09/22/21 History mg/1.5 mL) subcutaneous pen injector (Ozempic) Allergies Allergy/AdvReac Type Severity Reaction Status Date / Time No Known Allergies Allergy Unknown Verified 09/21/21 23:25 Vital Signs Vital Signs - 24 hr 09/21/21 22:28 09/22/21 00:00 09/21/21 23:00 Temperature 98.8 F Pulse Rate 114 H 97 101 H Respiratory Rate 20 17 20 Blood Pressure 130/62 150/73 H 135/75 Pulse Oximetry 100 100 100 09/22/21 03:09 Temperature Pulse Rate 83 Respiratory Rate 20 Blood Pressure 119/63 Pulse Oximetry 96 Exam Narrative: General: No acute distress, alert and oriented per baseline HEENT: Atraumatic, normocephalic, mucous membranes moist CV: Regular rate and rhythm, S1, S2 Lungs: Clear to auscultation bilaterally, no rales or crackles noted, no wheezes, good air entry Abdomen: Soft, nontender, nondistended Extremities: Normal to inspection Skin: No rashes noted, no lesions or wounds seen Psych: Euthymic, normal affect H&P: Results Labs Labs: Short CBC 09/21/21 Range/Units 23:22 WBC 14.0 H (4.5-10.0) K/mm3 Hgb 9.9 L (12
[2021-09-22] MEDS: SODIUM CHLORIDE 0.9% IV 1,000 ML 125 ML IV CONT (04:18)
--- NOTE | 2021-09-22 04:28 | ADMGEN ---
This patient, Kylie Marquez, was admitted to [facility] Surg Room 312-01 @0400. Patient/family oriented to hospital policies and general routines including ID bracelet, bed and alarms, visiting hours, pain management, procedures, bathroom and other care routines, personal items, smoking policy, room service/diet, and visiting hours. Information on how to activate the Rapid Response Team has been discussed. Patient/Family are encouraged to report perceived risks to care and to ask questions if they do not understand what they are told or what they should do.
[2021-09-22] MEDS: SODIUM CHLORIDE 0.9% IV 1,000 ML 100 ML IV CONT (06:30)
[2021-09-22 06:52] LABS: Hemoglobin A1C 9.8 % (<5.7)
[2021-09-22 07:04] LABS: Estimated CRCL calculation 29 ml/min; Estimated Glomerular Filt Rate 21
[2021-09-22 08:02] LABS: Glucose Point of Care 266 mg/dl (65-105)
[2021-09-22] MEDS: metroNIDAZOLE 500 MG/ISO 100ML 500 MG/100 ML BAG 100 MG IVPB ×2 (08:20→15:53)
--- NOTE | 2021-09-22 09:16 | PM.CNGS ---
Assessment and Plan Assessment and plan (1) Diabetic foot ulcer: Qualifiers: Diabetic foot ulcer location: other Laterality: right Non-pressure ulcer stage: with bone involvement without evidence of necrosis Code(s): E11.621 - Type 2 diabetes mellitus with foot ulcer; L97.509 - Non-pressure chronic ulcer of other part of unspecified foot with unspecified severity Status: Acute Assessment and Plan: Infected and necrotic, will need extensive debridement and amputation of 5th digit, discussed with patient and she would like to proceed, will take to the operating room later today for procedure and likely VAC placement as well, continue IV antibiotics (2) Osteomyelitis: Qualifiers: Laterality: right Osteomyelitis location: foot Osteomyelitis type: unspecified type Qualified Code(s): M86.9 - Osteomyelitis, unspecified Code(s): M86.9 - Osteomyelitis, unspecified Status: Acute Assessment and Plan: continue IV antibiotics, will further assess in the operating room (3) Diabetes type 2, controlled: Code(s): E11.9 - Type 2 diabetes mellitus without complications Status: Acute Assessment and Plan: will need tight blood sugar control given infection (4) Acute kidney injury superimposed on chronic kidney disease: Code(s): N17.9 - Acute kidney failure, unspecified; N18.9 - Chronic kidney disease, unspecified Status: Acute Assessment and Plan: likely baseline, continue management per primary team (5) Coronary artery disease: Code(s): I25.10 - Atherosclerotic heart disease of [place] coronary artery without angina pectoris Status: Acute Assessment and Plan: stable, continue to hold anticoagulation at this time History of Present Illness Consult details Consult date: 09/22/21 Reason for consult: wound care Requesting physician: Demetra Gonzales, Narrative: The patient is a 66-year-old female with multiple medical issues including diabetes, CAD status post CABG, hypertension presenting to the emergency department with worsening right diabetic foot ulcer. The patient reports the ulcer started about a month ago on the plantar surface of her lateral right foot. The patient reports that it has progressively worsened over the month with now drainage and progressive necrosis. The patient reports she has seen her milk deliverer and bone scan was ordered. The patient reports that she has severe neuropathy and really has no pain or sensation in her foot. The patient denies any systemic fevers or chills at home. Review of Systems Constitutional: Constitutional: Denies anorexia, Denies chills, Denies fatigue, Denies fever(s), Denies lethargy, Denies malaise, Denies poor appetite, Denies weakness, Denies weight gain and Denies weight loss Eyes: Eyes: Reports no additional eye complaints ENT: Reports system reviewed and no additional complaints, except as documented Cardiovascular: Cardiovascular: Reports no additional cardiovascular complaints Respiratory: Respiratory: Reports no additional respiratory complaints Gastrointestinal: Gastrointestinal: Reports no additional gastrointestinal complaints Genitourinary: Genitourinary: Reports no additional female genitourinary complaints Musculoskeletal: Musculoskeletal: Reports as per HPI, Reports abnormal gait, Reports muscle weakness and Reports numbness Integumentary/Breasts: Skin/Breast: Reports as per HPI, Reports swelling, Reports change in pigmentation, Reports non-healing lesions, Reports skin ulcer, Reports sores and Reports wounds Neurologic: Reports system reviewed and no additional complaints, except as documented Psychiatric: Psychiatric: Reports no additional psychiatric complaints Endocrine: Endocrine: Reports no additional endocrine complaints Hematologic/Lymphatic: Hematologic/Lymphatic: Reports no additional hematologic/lymphatic complaints Allergic/Immunologic:
--- NOTE | 2021-09-22 10:20 | WPDHPUPDATE1 ---
History and Physical Update Update Date/Time: 09/22/21 10:20 History and Physical has been reviewed, including an updated exam of the patient. There are NO changes in the patient's condition. Risks, benefits, and alternatives have been discussed and questions answered. Patient agrees to proceed with procedure.
--- NOTE | 2021-09-22 10:47 | PM.IMPN ---
Progress Note: A&P Assessment and Plan (1) Diabetic foot ulcer: Qualifiers: Diabetic foot ulcer location: other Laterality: right Non-pressure ulcer stage: with bone involvement without evidence of necrosis Code(s): E11.621 - Type 2 diabetes mellitus with foot ulcer; L97.509 - Non-pressure chronic ulcer of other part of unspecified foot with unspecified severity Status: Acute Assessment and Plan: Consult general surgery (2) Osteomyelitis: Qualifiers: Laterality: right Osteomyelitis location: foot Osteomyelitis type: unspecified type Qualified Code(s): M86.9 - Osteomyelitis, unspecified Code(s): M86.9 - Osteomyelitis, unspecified Status: Acute Assessment and Plan: Vanc, Flagyl and cefepime initiated, General surgery consulted for surgical management. Plan to take the patient to OR today for debridement (3) Coronary artery disease: Code(s): I25.10 - Atherosclerotic heart disease of [place] coronary artery without angina pectoris Status: Acute Assessment and Plan: Stable (4) Diabetes type 2, controlled: Code(s): E11.9 - Type 2 diabetes mellitus without complications Status: Acute Assessment and Plan: A1c was 9.5 last month, uncontrolled, Accu-Cheks plus sliding scale insulin plus Lantus at home does, goal blood sugar less than 180 for best healing, will increase medications as needed. Patient recently started following up with an dry cleaning checker (5) Hyponatremia: Code(s): E87.1 - Hypo-osmolality and hyponatremia Status: Acute Assessment and Plan: Gentle IV fluid hydration, reassess, suspect secondary to hypovolemia (6) Acute kidney injury superimposed on chronic kidney disease: Code(s): N17.9 - Acute kidney failure, unspecified; N18.9 - Chronic kidney disease, unspecified Status: Acute Assessment and Plan: Baseline creatinine 1.2. It is 2.4 now Suspect prerenal etiology, try gentle IV fluid hydration and reassess, hold home Lasix, lisinopril for now, monitor fluid status closely and resume when appropriate Plan DVT prophylaxis with heparin and SCDs Full code Time Spent With Patient Time with patient: 25 - 35 minutes Subjective Date/time seen: 09/22/21 10:47 Interval history: no complaints at this time Review of Systems Review of Systems: All systems reviewed & are unremarkable except as noted in HPI and below Exam Narrative: General: No acute distress, alert and oriented per baseline HEENT: Atraumatic, normocephalic, mucous membranes moist CV: Regular rate and rhythm, S1, S2 Lungs: Clear to auscultation bilaterally, no rales or crackles noted, no wheezes, good air entry Abdomen: Soft, nontender, nondistended Extremities: Right 5th toe dusky Skin: No rashes noted, no lesions or wounds seen Psych: Euthymic, normal affect Objective Data Vital Signs Vital Signs: Vital Signs - 24 hr 09/21/21 22:28 09/22/21 00:00 09/21/21 23:00 Temperature 98.8 F Pulse Rate 114 H 97 101 H Respiratory Rate 20 17 20 Blood Pressure 130/62 150/73 H 135/75 Pulse Oximetry 100 100 100 Oxygen Delivery 09/22/21 03:09 09/22/21 04:14 09/22/21 06:00 Temperature 97.9 F 97.5 F L Pulse Rate 83 83 89 Respiratory Rate 20 16 14 Blood Pressure 119/63 134/67 137/65 Pulse Oximetry 96 100 100 Oxygen Delivery 09/22/21 06:19 09/22/21 08:25 Temperature Pulse Rate Respiratory Rate Blood Pressure Pulse Oximetry Oxygen Delivery Room Air Room Air Intake/Output Intake/Output: Intake & Output 09/19/21 09/20/21 09/21/21 09/22/21 23:59 23:59 23:59 23:59 Intake Total 1350 Output Total 300 Balance 1050 Meds/Results Medications: Active Medications Generic Name Dose Route Start Last Admin Trade Name Freq PRN Reason Stop Dose Admin Atorvastatin Calcium 40 mg 09/22/21 21:00 Atorvastatin 40 Mg Tablet PO [facility] Dextrose 12.5 gm
[2021-09-22 11:04] LABS: Iron 17 ug/dL (37-170)
[2021-09-22 11:13] LABS: Percent Iron Saturation 10 % (20-50)
[2021-09-22 11:43] LABS: Glucose Point of Care 250 mg/dl (65-105)
--- NOTE | 2021-09-22 12:25 | PC.NURSE ---
To OR via bed.
--- NOTE | 2021-09-22 12:32 | WPDANESEPPF ---
Anes - Initial Pre Proc Eval Procedure: Operation Date: 09/22/21 14:00 Proposed Procedures p Right Foot Ulcer Debridement With Amputation of Fifth Toe(Right) - Radha Cuevas MD Date/Time: 09/22/21 12:32 Surgeon: Demetra Gonzales DO Pre Op Diagnosis: Diabetic Foot Ulcer Patient Data Age: 66 Gender: F Height: 1.78 m Weight: 103.4 kg Last Vital Signs Temp 36.4 C L 09/22/21 06:00 Pulse 89 09/22/21 06:00 Resp 14 09/22/21 06:00 BP 137/65 09/22/21 06:00 Pulse Ox 100 09/22/21 06:00 O2 Del Method Room Air 09/22/21 08:25 Allergies Allergy/AdvReac Type Severity Reaction Status Date / Time No Known Allergies Allergy Unknown Verified 09/21/21 23:25 Home Medications Medication Instructions Recorded Confirmed Type famotidine 40 mg tablet 40 mg PO DAILY #90 tabs 09/06/19 09/22/21 Rx amoxicillin 500 mg-potassium 1 tablet PO TID 09/21/21 09/22/21 History clavulanate 125 mg tablet apixaban 5 mg tablet (Eliquis) 5 mg PO BID 09/21/21 09/22/21 History atorvastatin 40 mg tablet 40 tablet PO HS 09/21/21 09/22/21 History furosemide 40 mg tablet 40 mg PO BID 09/21/21 09/22/21 History lisinopril 40 mg tablet 40 mg PO DAILY 09/21/21 09/22/21 History insulin degludec 100 unit/mL (3 32 unit subcut HS 09/22/21 09/22/21 History mL) subcutaneous pen (Tresiba FlexTouch U-100 insulin) semaglutide 0.25 mg or 0.5 mg (2 0.5 mg subcut WEEKLY 09/22/21 09/22/21 History mg/1.5 mL) subcutaneous pen injector (Ozempic) Laboratory Tests 09/21/21 09/21/21 09/21/21 23:22 23:22 23:22 WBC 14.0 K/mm3 H K/mm3 (4.5-10.0) RBC 3.61 M/mm3 L M/mm3 (4.2-5.4) Hgb 9.9 g/dL L g/dL (12.0-15.0) Hct 30.2 % L % (37.0-47.0) MCV 83.7 fl fl (80-100) MCH 27.4 pg pg (26-34) MCHC 32.8 g/dl g/dl (32-36) RDW 13.6 % % (11.5-14.5) Plt Count 490 k/mm3 H D k/mm3 (150-375) MPV 10.0 fl fl (7.4-10.4) Immature Gran % (Auto) 1.1 % H % (0-0.5) Neut % (Auto) 84.2 % H % (45.5-73.1) Lymph % (Auto) 8.6 % L % (18.3-44.2) Drew % (Auto) 5.7 % % (2.6-8.5) Eos % (Auto) 0.0 % % (0-4.4) Baso % (Auto) 0.4 % % (0.2-1.2) Lymph # (Auto) 1.21 K/mm3 K/mm3 (0.9-3.2) Drew # (Auto) 0.8 K/mm3 H K/mm3 (0.1-0.6) Eos # (Auto) 0.0 K/mm3 K/mm3 (0-0.3) Baso # (Auto) 0.1 K/mm3 K/mm3 (0.0-0.1) Abs Immat Gran (auto) 0.16 K/mm3 H K/mm3 (0.00-0.031) Absolute Neuts (auto) 11.8 K/mm3 H K/mm3 (1.3-6.7) Absolute Nucleated RBC 0.0 K/mm3 K/mm3 (0.0-0.012) Nucleated RBC % 0.0 % % (0.0-0.2) Sodium 128 mmol/L L mmol/L (137-145) Potassium 3.8 mmol/L mmol/L (3.4-5.0) Chloride 97 mmol/L L mmol/L (98-107) Carbon Dioxide 20 mmol/L L mmol/L (22-30) Anion Gap 11 mmol/L mmol/L (8-16) BUN 39 mg/dL H mg/dL (7-17) Creatinine 2.40 mg/dL H mg/dL (0.7-1.0) Estim Creat Clear Calc 28 ml/min ml/min Estimated GFR 20 L (59 - ) Glucose 252 mg/dL H mg/dL (65-110) POC Capillary Glucose Hemoglobin A1c Lactic Acid 1.1 mmol/L mmol/L (0.7-2.0) Calcium 8.7 mg/dL mg/dL (8.4-10.2) Iron TIBC % Saturation Total Bilirubin 0.3 mg/dL mg/dL (0.2-1.3) AST 17 U/L U/L (14-36) ALT 13 U/L U/L (6-35) Alkaline Phosphatase 122 U/L U/L (38-126) Total Protein 7.0 g/dL g/dL (6.3-8.2) Albumin 3.4 g/dL L g/dL (3.5-5.1) 09/21/21 09/22/21 09/22/21 23:22 06:19 06:19 WBC RBC Hgb Hct MCV MCH MCHC RDW Plt Count MPV Immature Gran % (Auto)
[2021-09-22] MEDS: SODIUM CHLORIDE 0.9% IV 500 ML 30 ML IV CONT (13:00)
--- NOTE | 2021-09-22 13:50 | W.PM.PROC2 ---
Procedure Note - Detailed Date of Procedure 09/22/21 Pre-op Diagnosis Necrotic and infected right foot diabetic wound, osteomyelitis Post-op Diagnosis Same Procedure Performed complex debridement and washout right foot diabetic wound with amputation of 5th digit, placement of wound vac Surgeon Radha Cuevas MD Anesthesia MAC Indications 66-year-old female with multiple medical issues including poorly-controlled diabetes presenting with right diabetic foot wound that is now necrotic and infected Findings necrosis and infection of right lateral foot involving 5th digit and metatarsal, underlying infection and liquified necrosis Description of Procedure The patient was taken to the operating room and placed in the supine position. After adequate induction of MAC anesthesia, the patient was prepped and draped in normal sterile fashion. A time-out was then done to verify the patient's identity, as well as the procedure being performed. I began by debriding the obviously necrotic tissue in the right lateral foot and this included the right 5th toe. The incision was taken down through the dermis and into the subcutaneous tissue. At this point there was noted to be underlying liquified necrosis as well as infection. I went ahead and debrided the tissue back to healthy bleeding tissue. This included removing the tendon and part of the 5th metatarsal. Once this debridement was done, the tissue looked to be viable and healthy. I used a bone rasp to smooth the metatarsal. This area was then copiously washed out and measured a proximal 7 x 6 by 3 cm. There was no tunneling noted. We then placed Adaptic over the bone and tendon. The wound VAC was then placed over the debrided tissue. Patient tolerated the procedure well and will be transferred back to the recovery room in stable condition. Estimated Blood Loss 10 Urine Output 300 Pathology Yes Complications No immediate complications Condition Stable Disposition PACU [facility] Billing Surgery - Charge Forward: Surgery Billing
[2021-09-22 14:21] LABS: Glucose Point of Care 244 mg/dl (65-105)
--- NOTE | 2021-09-22 14:45 | PC.NURSE ---
Back from OR via bed.
[2021-09-22] MEDS: FAMOTIDINE 20 MG TABLET PO (14:59)
[2021-09-22] MEDS: fentaNYL CITRATE INJ (*CRX) 100 MCG/2 ML VIAL 25 MCG IV PUSH (15:48)
[2021-09-22] MEDS: ONDANSETRON INJ 4 MG/2 ML VIAL IV PUSH (16:06)
[2021-09-22 16:33] LABS: Glucose Point of Care 233 mg/dl (65-105)
[2021-09-22] MEDS: INSULIN ASPART (*BKC) 100 UNITS/ML SUB-Q (16:40)
[2021-09-22] MEDS: HEPARIN SODIUM 5,000 UNITS/ML VIAL 5000 UNITS SUB-Q (21:05)
[2021-09-22] MEDS: ATORVASTATIN 40 MG TABLET PO (21:06)
[2021-09-22] MEDS: INSULIN GLARGINE (*BKC) 100 UNITS/ML 32 UNITS SUB-Q (21:06)
[2021-09-22 21:16] LABS: Glucose Point of Care 277 mg/dl (65-105)
[2021-09-23] MEDS: metroNIDAZOLE 500 MG/ISO 100ML 500 MG/100 ML BAG 100 MG IVPB ×3 (00:16→15:16)
[2021-09-23] MEDS: SODIUM CHLORIDE 0.9% IV 1,000 ML 100 ML IV CONT ×2 (00:21→15:15)
[2021-09-23 06:00] VITALS: BP 136/73; PULSE 70; RESP 18; TEMP 36.8; O2SAT 99
[2021-09-23 06:24] LABS: Hematocrit 25.2 % (37.0-47.0); Hemoglobin 8.2 g/dL (12.0-15.0); Mean Corpuscular HGB Conc 32.5 g/dl (32-36); Mean Corpuscular Hemoglobin 27.8 pg (26-34); Mean Corpuscular Volume 85.4 fl (80-100); Mean Platelet Volume 10.1 fl (7.4-10.4); Platelet Count Result 403 k/mm3 (150-375); Red Blood Count 2.95 M/mm3 (4.2-5.4); Red Cell Distribution Width 13.9 % (11.5-14.5); White Blood Count 10.7 K/mm3 (4.5-10.0)
[2021-09-23 06:39] LABS: Anion Gap 7 mmol/L (8-16); Blood Urea Nitrogen 28 mg/dL (7-17); Calcium 7.8 mg/dL (8.4-10.2); Carbon Dioxide 21 mmol/L (22-30); Chloride 104 mmol/L (98-107); Estimated CRCL calculation 37 ml/min; Estimated Glomerular Filt Rate 28; Glucose 184 mg/dL (65-110); Potassium 3.6 mmol/L (3.4-5.0); Sodium 132 mmol/L (137-145)
--- NOTE | 2021-09-23 07:49 | WPDANESPN ---
Anes - Prog Note Post-Op Date/Time: 09/23/21 07:49 Cardiovascular status: normal Respiratory status: normal Airway patency: baseline Mental status: baseline Post-Op hydration status: normal Vital Signs: Last Vital Signs Temp 36.8 C 09/23/21 06:00 Pulse 70 09/23/21 06:00 Resp 18 09/23/21 06:00 BP 136/73 09/23/21 06:00 Pulse Ox 99 09/23/21 06:00 O2 Del Method Room Air 09/22/21 14:40 O2 Flow Rate 6 09/22/21 14:10 Pain Score (VAS): 0 I/O: Intake & Output 09/22/21 09/22/21 09/23/21 15:59 23:59 07:59 Intake Total 100 1850 300 Output Total 300 200 Balance -200 1650 300 Laboratory Tests 09/23/21 05:37 09/23/21 05:37 09/21/21 09/22/21 09/22/21 23:22 07:56 11:38 WBC RBC Hgb Hct MCV MCH MCHC RDW Plt Count MPV Sodium Potassium Chloride Carbon Dioxide Anion Gap BUN Creatinine Estim Creat Clear Calc Estimated GFR Glucose POC Capillary Glucose 266 H 250 H Calcium Iron 17 L TIBC 174 L % Saturation 10 L 09/22/21 09/22/21 09/22/21 14:15 16:20 21:04 WBC RBC Hgb Hct MCV MCH MCHC RDW Plt Count MPV Sodium Potassium Chloride Carbon Dioxide Anion Gap BUN Creatinine Estim Creat Clear Calc Estimated GFR Glucose POC Capillary Glucose 244 H 233 H 277 H Calcium Iron TIBC % Saturation 09/23/21 09/23/21 05:37 05:37 WBC 10.7 H RBC 2.95 L Hgb 8.2 L Hct 25.2 L MCV 85.4 MCH 27.8 MCHC 32.5 RDW 13.9 Plt Count 403 H MPV 10.1 Sodium 132 L Potassium 3.6 Chloride 104 Carbon Dioxide 21 L Anion Gap 7 L BUN 28 H D Creatinine 1.80 H Estim Creat Clear Calc 37 Estimated GFR 28 L Glucose 184 H POC Capillary Glucose Calcium 7.8 L Iron TIBC % Saturation Microbiology 09/21/21 23:23 Blood Blood Culture - Preliminary 09/21/21 23:22 Blood Blood Culture - Preliminary 09/21/21 23:22 Foot Right Wound Culture - Preliminary Post-procedural complaints: none Patient Feedback: Patient satisfied with anesthetic care.
[2021-09-23 07:52] LABS: Glucose Point of Care 180 mg/dl (65-105)
[2021-09-23] MEDS: FAMOTIDINE 20 MG TABLET PO (08:22)
[2021-09-23] MEDS: HEPARIN SODIUM 5,000 UNITS/ML VIAL 5000 UNITS SUB-Q ×2 (08:22→20:45)
[2021-09-23] MEDS: FERROUS SULFATE 324 MG TABLET PO (08:22)
[2021-09-23 09:26] VITALS: O2SAT 95
[2021-09-23 11:26] LABS: Glucose Point of Care 224 mg/dl (65-105)
--- NOTE | 2021-09-23 11:35 | P.PNIM_ITS ---
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 * General surgery consulted and appreciate recommendations. * s/p complex debridement and washout right foot diabetic wound with amputation of 5th digit, placement of wound vac on 09/22. * Continue broad-spectrum antibiotics. * Tissue pathology pending. * A1c 9.8% (was 9.5% in August and 14% prior, per patient). * Control blood sugars with basal-bolus insulin. Patient to bring in her Ozempic from home. (2) Osteomyelitis: Qualifiers: Laterality: right Osteomyelitis location: foot Osteomyelitis type: unspecified type Qualified Code(s): M86.9 - Osteomyelitis, unspecified Code(s): M86.9 - Osteomyelitis, unspecified Status: Acute Assessment and Plan: Noted on CT scan. * Continue antibiotics: Cefepime and Flagyl. Vancomycin adjust per pharmacy. * Adjust antibiotics pending cultures: Wound culture with mixed karli currently. Blood cultures pending. Pathology pending. * ID clinical pharmacist consulted for assistance with antibiotic recommendations. * S/p debridement and amputation 5th digit 09/22/21. (3) Type 2 diabetes mellitus, uncontrolled, with renal complications: Status: Acute Assessment and Plan: A1c 9.8%, was 9.5% last month and 14% prior to this. Uncontrolled * Continue Accu-Cheks plus sliding scale insulin increase to moderate scale. * Continue Lantus 32 units per day. * Patient to bring and use her own Ozempic medication and take weekly on . * Goal blood sugar <180 for best wound healing. * Consult admitting representative for diet education. * Continue consistent carb diet. * Patient recently started following up with an other spatial scientist and can follow up outpatient. (4) Acute kidney injury superimposed on chronic kidney disease: Code(s): N17.9 - Acute kidney failure, unspecified; N18.9 - Chronic kidney disease, unspecified Status: Acute Assessment and Plan: Baseline creatinine 1.2; creatinine 2.4, GFR 20 on admission. Suspect prerenal etiology * Continue gentle IV fluid hydration and reassess. * Hold Lasix. Continue lisinopril for HTN. * Monitor I/O. * Trend BMP. (5) Hyponatremia: Code(s): E87.1 - Hypo-osmolality and hyponatremia Status: Acute Assessment and Plan: Sodium 128 on admission, corrected to 130 for hyperglycemia. * Sodium 133 today with hyperglycemia correction; improving. * Continue gentle IV fluid hydration * Suspect secondary to hypovolemia (6) Coronary artery disease: Qualifiers: Associated angina: without angina Coronary Disease-Associated Artery/Lesion type: unspecified vessel or lesion type [place] vs. transplanted heart: [place] heart Qualified Code(s): I25.10 - Atherosclerotic heart disease of [place] coronary artery without angina pectoris Code(s): I25.10 - Atherosclerotic heart disease of [place] coronary artery without ang
--- NOTE | 2021-09-23 11:35 | PM.IMPN ---
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 General surgery consulted and appreciate recommendations. s/p complex debridement and washout right foot diabetic wound with amputation of 5th digit, placement of wound vac on 09/22. Continue broad-spectrum antibiotics. Tissue pathology pending. A1c 9.8% (was 9.5% in August and 14% prior, per patient). Control blood sugars with basal-bolus insulin. Patient to bring in her Ozempic from home. (2) Osteomyelitis: Qualifiers: Laterality: right Osteomyelitis location: foot Osteomyelitis type: unspecified type Qualified Code(s): M86.9 - Osteomyelitis, unspecified Code(s): M86.9 - Osteomyelitis, unspecified Status: Acute Assessment and Plan: Noted on CT scan. Continue antibiotics: Cefepime and Flagyl. Vancomycin adjust per pharmacy. Adjust antibiotics pending cultures: Wound culture with mixed karli currently. Blood cultures pending. Pathology pending. ID clinical pharmacist consulted for assistance with antibiotic recommendations. S/p debridement and amputation 5th digit 09/22/21. (3) Type 2 diabetes mellitus, uncontrolled, with renal complications: Status: Acute Assessment and Plan: A1c 9.8%, was 9.5% last month and 14% prior to this. Uncontrolled Continue Accu-Cheks plus sliding scale insulin increase to moderate scale. Continue Lantus 32 units per day. Patient to bring and use her own Ozempic medication and take weekly on . Goal blood sugar <180 for best wound healing. Consult transplant surgeon for diet education. Continue consistent carb diet. Patient recently started following up with an visitor services coordinator and can follow up outpatient. (4) Acute kidney injury superimposed on chronic kidney disease: Code(s): N17.9 - Acute kidney failure, unspecified; N18.9 - Chronic kidney disease, unspecified Status: Acute Assessment and Plan: Baseline creatinine 1.2; creatinine 2.4, GFR 20 on admission. Suspect prerenal etiology Continue gentle IV fluid hydration and reassess. Hold Lasix. Continue lisinopril for HTN. Monitor I/O. Trend BMP. (5) Hyponatremia: Code(s): E87.1 - Hypo-osmolality and hyponatremia Status: Acute Assessment and Plan: Sodium 128 on admission, corrected to 130 for hyperglycemia. Sodium 133 today with hyperglycemia correction; improving. Continue gentle IV fluid hydration Suspect secondary to hypovolemia (6) Coronary artery disease: Qualifiers: Associated angina: without angina Coronary Disease-Associated Artery/Lesion type: unspecified vessel or lesion type [place] vs. transplanted heart: [place] heart Qualified Code(s): I25.10 - Atherosclerotic heart disease of [place] coronary artery without angina pectoris Code(s): I25.10 - Atherosclerotic heart disease of [place] coronary artery without angina pectoris Status: Chronic Assessment and Plan: Continue statin and lisinopril. She is not taking aspirin or beta-kiran at home. Stable. (7) Paroxysmal atrial fibrillation: Code(s): I48.0 - Paroxysmal atrial fibrillation Status: Chronic Assessment and Plan: Noted on EKG upon admission. Rate-controlled. The patient reports she was diagno
[2021-09-23] MEDS: INSULIN ASPART (*BKC) 100 UNITS/ML SUB-Q ×2 (12:21→17:26)
--- NOTE | 2021-09-23 12:59 | PCNSR ---
On 09/23/21, the student, Kaylah Wadsworth, provided care and completed [facility] documentation on this patient. I have reviewed the student's documentation and agree with the findings.
[2021-09-23 14:00] VITALS: BP 107/55; PULSE 72; RESP 18; TEMP 36.2; O2SAT 100
--- NOTE | 2021-09-23 15:52 | PM.PNGS ---
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 without evidence of necrosis Code(s): E11.621 - Type 2 diabetes mellitus with foot ulcer; L97.509 - Non-pressure chronic ulcer of other part of unspecified foot with unspecified severity Status: Acute Assessment and Plan: cont vac, plan for change tomorrow, cont abx and await cx, home c vac soon Subjective Subjective Date/Time Seen: 09/23/21 15:52 no acute issues, feels ok Review of Systems Review of Systems: All systems reviewed & are unremarkable except as noted in HPI and below Exam Const: General: cooperative, comfortable and no acute distress Extrem: Other: R foot - vac C/D/I Objective Data Vital Signs Vital Signs: Vital Signs - 24 hr 09/22/21 22:00 09/23/21 06:00 09/23/21 09:26 Temperature 36.7 C 36.8 C Pulse Rate 76 70 Respiratory Rate 18 18 Blood Pressure 130/70 136/73 Pulse Oximetry 97 99 95 Oxygen Delivery Room Air 09/23/21 14:00 Temperature 36.2 C L Pulse Rate 72 Respiratory Rate 18 Blood Pressure 107/55 L Pulse Oximetry 100 Oxygen Delivery Intake/Output Intake/Output: Intake & Output 09/20/21 09/21/21 09/22/21 09/23/21 23:59 23:59 23:59 23:59 Intake Total 3200 1880 Output Total 800 Balance 2400 1880 Meds/Results Medications: Active Medications Generic Name Dose Route Start Last Admin Trade Name Freq PRN Reason Stop Dose Admin Acetaminophen 650 mg 09/22/21 15:31 Acetaminophen 325 Mg Tablet PO Q6H PRN Mild Pain (1-3) or Fever Hydrocodone Bitart/Acetaminophen 1 tab 09/22/21 15:30 Hydrocodone/Acetaminophen (*Crx) 5-325 Mg Tablet PO Q6H PRN Pain Rated 4-6 Atorvastatin Calcium 40 mg 09/22/21 21:00 09/22/21 21:06 Atorvastatin 40 Mg Tablet PO 40 mg HS SELMA Administration Dextrose 12.5 gm 09/22/21 05:31 Dextrose 50% 25 Gm/50 Ml Syringe IV PUSH PRN PRN Hypoglycemia Protocol Famotidine 20 mg 09/22/21 09:00 09/23/21 08:22 Famotidine 20 Mg Tablet PO 20 mg DAILY SELMA Administration Fentanyl Citrate 25 mcg 09/22/21 15:30 09/22/21 15:48 Fentanyl Citrate Inj (*Crx) 100 Mcg/2 Ml Vial IV PUSH 25 mcg Q4H PRN Administration Pain Rated 7-10 Ferrous Sulfate 324 mg 09/23/21 08:00 09/23/21 08:22 Ferrous Sulfate 324 Mg Tablet PO 324 mg DAILY@0800 SELMA Administration Glucagon 1 mg 09/22/21 05:31 Glucagon For Inj 1 Mg Vial IM PRN PRN Hypoglycemia Protocol Glucose 15 gm 09/22/21 05:31 Glucose Oral Gel 15 Gm Of Glucse In 37.5 Gm Tube PO PRN PRN Hypoglycemia Protocol Heparin Sodium (Porcine) 5,000 units 09/22/21 09:00 09/23/21 08:22 Heparin Sodium 5,000 Units/Ml Vial SUB-Q 5,000 units Q12HR SELMA Administration Cefepime HCl 2 gm in 50 mls @ 100 mls/hr 09/22/21 06:00 09/23/21 05:00 Maxipime 2 Gm/D5w 50 Ml IVPB 100 mls/hr Q24H SELMA Administration Dextrose 1,000 mls @ 100 mls/hr 09/22/21 05:31 Dextrose 5% 1,000 Ml IVPB PRN PRN Hypoglycemia Protocol Sodium Chloride 1,000 mls @ 100 mls/hr 09/22/21 05:35 09/23/21 15:15 Normal Saline Iv IV CONT 100 mls/hr .Q10H SELMA Administration Metronidazole 500 mg in 100 mls @ 100 mls/hr 09/22/21 08:00 09/23/21 15:16 Flagyl 500 Mg/Iso Soln 100 Ml IVPB 100 mls/hr Q8H SELMA Administration Insulin Aspart 3 - 6 units 09/23/21 12:00 09/23/21 12:21 Insulin Aspart (*Bkc) 100 Units/Ml SUB-Q 3 units TIDWM SELMA Administration Protocol Insulin Glargine 32 units 09/22/21 21:00 09/22/21 21:06 Insulin Glargine (*B
[2021-09-23 16:36] LABS: Glucose Point of Care 222 mg/dl (65-105)
[2021-09-23 20:00] VITALS: PULSE 71; RESP 14; O2SAT 98
[2021-09-23] MEDS: ATORVASTATIN 40 MG TABLET PO (20:45)
[2021-09-23] MEDS: INSULIN GLARGINE (*BKC) 100 UNITS/ML 32 UNITS SUB-Q (20:49)
[2021-09-23 21:14] LABS: Glucose Point of Care 225 mg/dl (65-105)
[2021-09-23 22:00] VITALS: BP 113/60; PULSE 71; RESP 14; TEMP 36.7; O2SAT 98
[2021-09-24] MEDS: metroNIDAZOLE 500 MG/ISO 100ML 500 MG/100 ML BAG 100 MG IVPB ×4 (00:03→23:10)
[2021-09-24] MEDS: SODIUM CHLORIDE 0.9% IV 1,000 ML 100 ML IV CONT ×2 (05:05→23:13)
[2021-09-24 06:00] VITALS: BP 154/76; PULSE 83; RESP 16; TEMP 36.3; O2SAT 99
[2021-09-24 06:15] LABS: Hematocrit 27.8 % (37.0-47.0); Hemoglobin 8.4 g/dL (12.0-15.0); Mean Corpuscular HGB Conc 30.2 g/dl (32-36); Mean Corpuscular Hemoglobin 27.5 pg (26-34); Mean Corpuscular Volume 91.1 fl (80-100); Mean Platelet Volume 10.5 fl (7.4-10.4); Platelet Count Result 292 k/mm3 (150-375); Red Blood Count 3.05 M/mm3 (4.2-5.4); Red Cell Distribution Width 14.1 % (11.5-14.5); White Blood Count 8.4 K/mm3 (4.5-10.0)
[2021-09-24 06:21] LABS: Anion Gap 7 mmol/L (8-16); Blood Urea Nitrogen 22 mg/dL (7-17); Calcium 7.9 mg/dL (8.4-10.2); Carbon Dioxide 19 mmol/L (22-30); Chloride 109 mmol/L (98-107); Estimated CRCL calculation 47 ml/min; Estimated Glomerular Filt Rate 38; Glucose 178 mg/dL (65-110); Potassium 3.8 mmol/L (3.4-5.0); Sodium 135 mmol/L (137-145)
[2021-09-24 07:42] LABS: Glucose Point of Care 175 mg/dl (65-105)
[2021-09-24] MEDS: FERROUS SULFATE 324 MG TABLET PO (08:38)
[2021-09-24] MEDS: CHOLECALCIFEROL 1,000 UNITS TABLET 1000 UNITS PO (08:38)
[2021-09-24] MEDS: HEPARIN SODIUM 5,000 UNITS/ML VIAL 5000 UNITS SUB-Q (08:38)
[2021-09-24] MEDS: FAMOTIDINE 20 MG TABLET PO (08:39)
--- NOTE | 2021-09-24 09:15 | PM.PNGS ---
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 Continue wound vac therapy. Continue IV antibiotics, wound cx with mix of organisms not further identified (s. aureus and beta-hemolytic strep or pseudomonas not identified). Blood cultures pending. Order PT/OT. Will also order post-op shoe for ambulation. Recommend heel-touch weight bearing on RLE. Will plan to go home with wound vac therapy and home health. Plan I have discussed the patient's case and plan of care with Dr. Soni. Subjective Subjective Date/Time Seen: 09/24/21 09:15 Post Op day: 2 (Complex debridement and washout right diabetic wound with amputation of 5th digit, placement of wound vac) Patient reports: afebrile Interval history: Patient doing well. Not having any pain. No other complaints at this time. Review of Systems Review of Systems: All systems reviewed & are unremarkable except as noted in HPI and below Constitutional: Constitutional: Denies fever(s) Exam Const: General: comfortable and no acute distress Orientation/consciousness: patient oriented x3 Skin: Other: Right foot wound vac removed, open wound to the right lateral foot with 5th metatarsal shaft exposed at the wound base, majority of the wound bed has granulating tissues, small area of dark/dusky soft tissue at the proximal aspect of the wound. Wound vac reapplied Extrem: General: no calf tenderness and no edema Psych: Insight: Good insight present (Psych) Objective Data Vital Signs Vital Signs: Vital Signs - 24 hr 09/23/21 09:26 09/23/21 14:00 09/23/21 22:00 Temperature 97.1 F L 98.0 F Pulse Rate 72 71 Respiratory Rate 18 14 Blood Pressure 107/55 L 113/60 Pulse Oximetry 95 100 98 Oxygen Delivery Room Air 09/23/21 20:00 09/24/21 06:00 Temperature 97.4 F L Pulse Rate 71 83 Respiratory Rate 14 16 Blood Pressure 154/76 H Pulse Oximetry 98 99 Oxygen Delivery Room Air Intake/Output Intake/Output: Intake & Output 09/21/21 09/22/21 09/23/21 09/24/21 23:59 23:59 23:59 23:59 Intake Total 3200 3100 1650 Output Total 800 1420 1950 Balance 2400 1680 -300 Meds/Results Medications: Active Medications Generic Name Dose Route Start Last Admin Trade Name Freq PRN Reason Stop Dose Admin Acetaminophen 650 mg 09/22/21 15:31 Acetaminophen 325 Mg Tablet PO Q6H PRN Mild Pain (1-3) or Fever Hydrocodone Bitart/Acetaminophen 1 tab 09/22/21 15:30 Hydrocodone/Acetaminophen (*Crx) 5-325 Mg Tablet PO Q6H PRN Pain Rated 4-6 Atorvastatin Calcium 40 mg 09/22/21 21:00 09/23/21 20:45 Atorvastatin 40 Mg Tablet PO 40 mg HS SELMA Administration Dextrose 12.5 gm 09/22/21 05:31 Dextrose 50% 25 Gm/50 Ml Syringe IV PUSH PRN PRN Hypoglycemia Protocol Famotidine 20 mg 09/22/21 09:00 09/24/21 08:39 Famotidine 20 Mg Tablet PO 20 mg DAILY SELMA Administration Fentanyl Citrate 25 mcg 09/22/21 15:30 09/22/21 15:48 Fentanyl Citrate Inj (*Crx) 100 Mcg/2 Ml Vial IV PUSH 25 mcg Q4H PRN Administration Pain Rated 7-10 Ferrous Sulfate 324 mg 09/23/21 08:00 09/24/21 08:38 Ferrous Sulfate 324 Mg Tablet PO 324 mg DAILY@0800 SELMA Administration Glucagon 1 mg 09/22/21 05:31 Glucagon For Inj 1 Mg Vial IM PRN PRN Hypoglycemia Protocol Glucose 15 gm 07
--- NOTE | 2021-09-24 09:42 | ECG_ITS ---
Measurements Intervals [place] Rate: 78 P: [place]: 0 QRS: 24 QRSD: 96 T: 43 QT: 416 QTc: 476 Interpretive Statements ATRIAL FLUTTER/TACHYCARDIA ANTEROSEPTAL INFARCT, AGE INDETERMINATE BASELINE WANDER- I, II, V3 ABNORMAL ECG Electronically Signed On 09-24-2021 11:56:23 CDT by Deondre Roldan D.O.
--- NOTE | 2021-09-24 11:14 | P.PNIM_ITS ---
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 * General surgery consulted and appreciate recommendations. * s/p complex debridement and washout right foot diabetic wound with amputation of 5th digit, placement of wound vac on 09/22. * Continue broad-spectrum antibiotics. * Tissue pathology pending. * A1c 9.8% (was 9.5% in August and 14% prior, per patient). * Control blood sugars with basal-bolus insulin. Patient to bring in her Ozempic from home. (2) Osteomyelitis: Qualifiers: Laterality: right Osteomyelitis location: foot Osteomyelitis type: unspecified type Qualified Code(s): M86.9 - Osteomyelitis, unspecified Code(s): M86.9 - Osteomyelitis, unspecified Status: Acute Assessment and Plan: Noted on CT scan. * Continue antibiotics: Cefepime and Flagyl. Will transition IV antibiotics to Flagyl and Levaquin oral on 09/25/2021. Patient wound culture negative to date, preliminary results for blood cultures negative to date * Adjust antibiotics pending cultures: Wound culture with mixed karli currently. Blood cultures pending. Pathology pending. * ID clinical pharmacist consulted for assistance with antibiotic recommendations. * S/p debridement and amputation 5th digit 09/22/21. (3) Type 2 diabetes mellitus, uncontrolled, with renal complications: Status: Acute Assessment and Plan: A1c 9.8%, was 9.5% last month and 14% prior to this. Uncontrolled * Continue Accu-Cheks plus sliding scale insulin increase to moderate scale. * Continue Lantus 32 units per day. * Patient to bring and use her own Ozempic medication and take weekly on [facility] rsd. * Goal blood sugar <180 for best wound healing. * Consult teacher [employer] for diet education. * Continue consistent carb diet. * Patient recently started following up with an vocational guidance counselor and can follow up outpatient. (4) Acute kidney injury superimposed on chronic kidney disease: Code(s): N17.9 - Acute kidney failure, unspecified; N18.9 - Chronic kidney disease, unspecified Status: Acute Assessment and Plan: Baseline creatinine 1.2; creatinine 2.4, GFR 20 on admission. Suspect prerenal etiology * Continue gentle IV fluid hydration and reassess. * Hold Lasix. Continue lisinopril for HTN. * Monitor I/O. * Trend BMP. * Renal function showing improvement on 09/24/2021, consider discontinue IV fluids on 09/25/2021, pending labs (5) Hyponatremia: Code(s): E87.1 - Hypo-osmolality and hyponatremia Status: Acute Assessment and Plan: Sodium 128 on admission, corrected to 130 for hyperglycemia. * Sodium 135 today with hyperglycemia correction; improving. * Continue gentle IV fluid hydration * Suspect secondary to hypovolemia (6) Coronary artery disease: Qualifiers: Coronary Disease-Associated Artery/Lesion type: unspecified vessel or lesion type [place] vs. transplanted
--- NOTE | 2021-09-24 11:14 | PM.IMPN ---
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 General surgery consulted and appreciate recommendations. s/p complex debridement and washout right foot diabetic wound with amputation of 5th digit, placement of wound vac on 09/22. Continue broad-spectrum antibiotics. Tissue pathology pending. A1c 9.8% (was 9.5% in August and 14% prior, per patient). Control blood sugars with basal-bolus insulin. Patient to bring in her Ozempic from home. (2) Osteomyelitis: Qualifiers: Laterality: right Osteomyelitis location: foot Osteomyelitis type: unspecified type Qualified Code(s): M86.9 - Osteomyelitis, unspecified Code(s): M86.9 - Osteomyelitis, unspecified Status: Acute Assessment and Plan: Noted on CT scan. Continue antibiotics: Cefepime and Flagyl. Will transition IV antibiotics to Flagyl and Levaquin oral on 09/25/2021. Patient wound culture negative to date, preliminary results for blood cultures negative to date Adjust antibiotics pending cultures: Wound culture with mixed karli currently. Blood cultures pending. Pathology pending. ID clinical pharmacist consulted for assistance with antibiotic recommendations. S/p debridement and amputation 5th digit 09/22/21. (3) Type 2 diabetes mellitus, uncontrolled, with renal complications: Status: Acute Assessment and Plan: A1c 9.8%, was 9.5% last month and 14% prior to this. Uncontrolled Continue Accu-Cheks plus sliding scale insulin increase to moderate scale. Continue Lantus 32 units per day. Patient to bring and use her own Ozempic medication and take weekly on . Goal blood sugar <180 for best wound healing. Consult customer response representative for diet education. Continue consistent carb diet. Patient recently started following up with an garden worker and can follow up outpatient. (4) Acute kidney injury superimposed on chronic kidney disease: Code(s): N17.9 - Acute kidney failure, unspecified; N18.9 - Chronic kidney disease, unspecified Status: Acute Assessment and Plan: Baseline creatinine 1.2; creatinine 2.4, GFR 20 on admission. Suspect prerenal etiology Continue gentle IV fluid hydration and reassess. Hold Lasix. Continue lisinopril for HTN. Monitor I/O. Trend BMP. Renal function showing improvement on 09/24/2021, consider discontinue IV fluids on 09/25/2021, pending labs (5) Hyponatremia: Code(s): E87.1 - Hypo-osmolality and hyponatremia Status: Acute Assessment and Plan: Sodium 128 on admission, corrected to 130 for hyperglycemia. Sodium 135 today with hyperglycemia correction; improving. Continue gentle IV fluid hydration Suspect secondary to hypovolemia (6) Coronary artery disease: Qualifiers: Coronary Disease-Associated Artery/Lesion type: unspecified vessel or lesion type [place] vs. transplanted heart: resighini heart Associated angina: without angina Qualified Code(s): I25.10 - Atherosclerotic heart disease of resighini coronary artery without angina pectoris Code(s): I25.10 - Atherosclerotic heart disease of resighini coronary artery without angina pectoris Status: Chronic Assessment and Plan: Continue statin and lisinopril. She is not taking aspirin or beta-kiran at
[2021-09-24 11:24] LABS: Glucose Point of Care 177 mg/dl (65-105)
[2021-09-24 14:00] VITALS: BP 131/70; PULSE 79; RESP 16; TEMP 36.4; O2SAT 99
[2021-09-24 14:03] VITALS: O2SAT 95
[2021-09-24 16:16] LABS: Glucose Point of Care 185 mg/dl (65-105)
[2021-09-24 20:47] VITALS: PULSE 80; RESP 22; O2SAT 95
[2021-09-24] MEDS: ATORVASTATIN 40 MG TABLET PO (20:48)
[2021-09-24] MEDS: INSULIN GLARGINE (*BKC) 100 UNITS/ML 32 UNITS SUB-Q (20:48)
[2021-09-24] MEDS: APIXABAN 5 MG TABLET PO (20:48)
[2021-09-24 21:38] VITALS: BP 127/73; PULSE 85; RESP 18; TEMP 36.8; O2SAT 99
[2021-09-24 23:29] LABS: Glucose Point of Care 212 mg/dl (65-105)
[2021-09-25 05:57] VITALS: BP 127/63; PULSE 78; RESP 17; TEMP 36.6; O2SAT 99
[2021-09-25 06:50] LABS: Hematocrit 27.4 % (37.0-47.0); Hemoglobin 8.5 g/dL (12.0-15.0); Mean Corpuscular Hemoglobin 27.4 pg (26-34); Mean Corpuscular Volume 88.4 fl (80-100); Mean Platelet Volume 9.7 fl (7.4-10.4); Platelet Count Result 416 k/mm3 (150-375); Red Cell Distribution Width 14.1 % (11.5-14.5); White Blood Count 11.1 K/mm3 (4.5-10.0)
[2021-09-25 07:03] LABS: Anion Gap 7 mmol/L (8-16); Blood Urea Nitrogen 16 mg/dL (7-17); Calcium 7.9 mg/dL (8.4-10.2); Carbon Dioxide 21 mmol/L (22-30); Chloride 108 mmol/L (98-107); Estimated CRCL calculation 50 ml/min; Estimated Glomerular Filt Rate 41; Glucose 159 mg/dL (65-110); Potassium 3.3 mmol/L (3.4-5.0); Sodium 136 mmol/L (137-145)
[2021-09-25 08:13] LABS: Glucose Point of Care 152 mg/dl (65-105)
[2021-09-25] MEDS: POTASSIUM CHLORIDE 20 MEQ TABLET 40 MEQ PO (08:31)
[2021-09-25] MEDS: FERROUS SULFATE 324 MG TABLET PO (08:31)
[2021-09-25] MEDS: APIXABAN 5 MG TABLET PO (08:31)
[2021-09-25] MEDS: metroNIDAZOLE 500 MG/ISO 100ML 500 MG/100 ML BAG 100 MG IVPB (08:31)
[2021-09-25] MEDS: CHOLECALCIFEROL 1,000 UNITS TABLET 1000 UNITS PO (08:32)
[2021-09-25] MEDS: FAMOTIDINE 20 MG TABLET PO (08:32)
--- NOTE | 2021-09-25 09:42 | PM.PNGS ---
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 without evidence of necrosis Code(s): E11.621 - Type 2 diabetes mellitus with foot ulcer; L97.509 - Non-pressure chronic ulcer of other part of unspecified foot with unspecified severity Status: Acute Assessment and Plan: doing well, cont vac, cx reviewed and ok to dc abx, home c vac and home health (2) Type 2 diabetes mellitus, uncontrolled, with renal complications: Status: Acute Assessment and Plan: needs better control, d/w pt importance of compliance Subjective Subjective Date/Time Seen: 09/25/21 09:42 feels good, no acute issues Review of Systems Review of Systems: All systems reviewed & are unremarkable except as noted in HPI and below Exam Const: General: cooperative, comfortable and no acute distress Extrem: Other: R foot - vac C/D/I Objective Data Vital Signs Vital Signs: Vital Signs - 24 hr 09/24/21 14:03 09/24/21 14:31 09/24/21 14:00 Temperature 36.4 C L Pulse Rate 79 Respiratory Rate 16 Blood Pressure 131/70 Pulse Oximetry 95 99 Oxygen Delivery Room Air Room Air Fraction of Inspired Oxygen 09/24/21 14:58 09/24/21 20:47 09/24/21 20:00 Temperature Pulse Rate 80 Respiratory Rate 22 H Blood Pressure Pulse Oximetry 95 Oxygen Delivery Room Air Room Air Room Air Fraction of Inspired Oxygen 0.21 09/24/21 21:38 09/25/21 05:57 Temperature 36.8 C 36.6 C Pulse Rate 85 78 Respiratory Rate 18 17 Blood Pressure 127/73 127/63 Pulse Oximetry 99 99 Oxygen Delivery Fraction of Inspired Oxygen Intake/Output Intake/Output: Intake & Output 09/22/21 09/23/21 09/24/21 09/25/21 23:59 23:59 23:59 23:59 Intake Total 3200 3100 4462 600 Output Total 800 1420 2700 1200 Balance 2400 1680 1762 -600 Meds/Results Medications: Active Medications Generic Name Dose Route Start Last Admin Trade Name Abdiq PRN Reason Stop Dose Admin Acetaminophen 650 mg 09/22/21 15:31 Acetaminophen 325 Mg Tablet PO Q6H PRN Mild Pain (1-3) or Fever Hydrocodone Bitart/Acetaminophen 1 tab 09/22/21 15:30 Hydrocodone/Acetaminophen (*Crx) 5-325 Mg Tablet PO Q6H PRN Pain Rated 4-6 Apixaban 5 mg 09/24/21 21:00 09/25/21 08:31 Apixaban 5 Mg Tablet PO 5 mg Q12HR SELMA Administration Atorvastatin Calcium 40 mg 09/22/21 21:00 09/24/21 20:48 Atorvastatin 40 Mg Tablet PO 40 mg HS SELMA Administration Dextrose 12.5 gm 09/22/21 05:31 Dextrose 50% 25 Gm/50 Ml Syringe IV PUSH PRN PRN Hypoglycemia Protocol Famotidine 20 mg 09/22/21 09:00 09/25/21 08:32 Famotidine 20 Mg Tablet PO 20 mg DAILY SELMA Administration Fentanyl Citrate 25 mcg 09/22/21 15:30 09/22/21 15:48 Fentanyl Citrate Inj (*Crx) 100 Mcg/2 Ml Vial IV PUSH 25 mcg Q4H PRN Administration Pain Rated 7-10 Ferrous Sulfate 324 mg 09/23/21 08:00 09/25/21 08:31 Ferrous Sulfate 324 Mg Tablet PO 324 mg DAILY@0800 SELMA Administration Glucagon 1 mg 09/22/21 05:31 Glucagon For Inj 1 Mg Vial IM PRN PRN Hypoglycemia Protocol Glucose 15 gm 09/22/21 05:31 Glucose Oral Gel 15 Gm Of Glucse In 37.5 Gm Tube PO PRN PRN Hypoglycemia Protocol Cefepime HCl 2 gm in 50 mls @ 100 mls/hr 09/22/21 06:00 09/25/21 05:39 Maxipime 2 Gm/D5w 50 Ml IVPB Infused Q24H SELMA Infusion Dextrose 1,000 mls @ 100 mls/hr 09/22/21 05:31 Dextrose 5% 1,000 Ml IVPB PRN PRN Hypoglycemia Protocol Sodium Chloride 1,000 mls @ 100 mls/hr 09/22/21 05:35 09/25/21 08:18
--- NOTE | 2021-09-25 10:17 | P.DS_ITS ---
DS: Admitting Diagnosis Discharge Date September 25, 2021 Admitting Diagnosis Diabetic foot ulcer Osteomyelitis right great toe CKD CAD Diabetes mellitus type 2 Hyponatremia SHREYA DS: Discharge Diagnosis Discharge Diagnosis (1) Diabetic foot ulcer: Qualifiers: Diabetes mellitus type: type 2 Diabetic foot ulcer location: other Laterality: right Non-pressure ulcer stage: with bone involvement without evidence of necrosis Qualified Code(s): E11.621 - Type 2 diabetes mellitus with foot ulcer; L97.516 - 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 without evidence of necrosis Code(s): E11.621 - Type 2 diabetes mellitus with foot ulcer; L97.509 - Non-pressure chronic ulcer of other part of unspecified foot with unspecified severity Status: Acute Assessment and Plan: 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 * General surgery consulted and appreciate recommendations. * s/p complex debridement and washout right foot diabetic wound with amputation of 5th digit, placement of wound vac on 09/22. * Continue broad-spectrum antibiotics. * Tissue pathology pending. * A1c 9.8% (was 9.5% in August and 14% prior, per patient). * Control blood sugars with basal-bolus insulin. Patient to bring in her Ozempic from home. (2) Osteomyelitis: Qualifiers: Laterality: right Osteomyelitis location: foot Osteomyelitis type: unspecified type Qualified Code(s): M86.9 - Osteomyelitis, unspecified Code(s): M86.9 - Osteomyelitis, unspecified Status: Acute Assessment and Plan: Noted on CT scan. * Continue antibiotics: Cefepime and Flagyl. Will transition IV antibiotics to Flagyl and Levaquin oral on 09/25/2021. Patient wound culture negative to date, preliminary results for blood cultures negative to date * Adjust antibiotics pending cultures: Wound culture with mixed karli currently. Blood cultures pending. Pathology pending. * ID clinical pharmacist consulted for assistance with antibiotic recommendations. * S/p debridement and amputation 5th digit 09/22/21. Stable (3) Type 2 diabetes mellitus, uncontrolled, with renal complications: Status: Acute Assessment and Plan: A1c 9.8%, was 9.5% last month and 14% prior to this. Uncontrolled * Continue Accu-Cheks plus sliding scale insulin increase to moderate scale. * Continue Lantus 32 units per day. * Patient to bring and use her own Ozempic medication and take weekly on . * Goal blood sugar <180 for best wound healing. * Consult shade hanger for diet education. * Continue consistent carb diet. * Patient recently started following up with an final inspector shuttle and can follow up outpatient. (4) Acute kidney injury superimposed on chronic kidney disease: Code(s): N17.9 - Acute kidney failure, unspecified; N18.9 - Chronic kidney disease, unspecified Status: Acute Assessment and Plan: Baseline creatinine 1.2; creatinine 2.4, GFR 20 on admission. Suspect prerenal etiology * Continue gentle IV fluid hydration and reassess. * Hold Lasix. Continue lisinopril for HTN. * Monitor I/O. * Trend BMP. * Renal function showing improvement on 09/24/2021, consider discontinue IV fluids on 09/25/2021, pending labs * Improvement (5) Hyponatremia: Code(s): E87.1 - Hypo-osmolality and hyponatremia Status: Acute Assessment and Plan: Sodium 128 on admission, corrected to 130 for hyperglycemia. * Sodium 135 today with hyperglycemia correction; improving.
--- NOTE | 2021-09-25 10:17 | PM.DS ---
DS: Admitting Diagnosis Discharge Date September 25, 2021 Admitting Diagnosis Diabetic foot ulcer Osteomyelitis right great toe CKD CAD Diabetes mellitus type 2 Hyponatremia SHREYA DS: Discharge Diagnosis Discharge Diagnosis (1) Diabetic foot ulcer: Qualifiers: Diabetes mellitus type: type 2 Diabetic foot ulcer location: other Laterality: right Non-pressure ulcer stage: with bone involvement without evidence of necrosis Qualified Code(s): E11.621 - Type 2 diabetes mellitus with foot ulcer; L97.516 - 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 without evidence of necrosis Code(s): E11.621 - Type 2 diabetes mellitus with foot ulcer; L97.509 - Non-pressure chronic ulcer of other part of unspecified foot with unspecified severity Status: Acute Assessment and Plan: 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 General surgery consulted and appreciate recommendations. s/p complex debridement and washout right foot diabetic wound with amputation of 5th digit, placement of wound vac on 09/22. Continue broad-spectrum antibiotics. Tissue pathology pending. A1c 9.8% (was 9.5% in August and 14% prior, per patient). Control blood sugars with basal-bolus insulin. Patient to bring in her Ozempic from home. (2) Osteomyelitis: Qualifiers: Laterality: right Osteomyelitis location: foot Osteomyelitis type: unspecified type Qualified Code(s): M86.9 - Osteomyelitis, unspecified Code(s): M86.9 - Osteomyelitis, unspecified Status: Acute Assessment and Plan: Noted on CT scan. Continue antibiotics: Cefepime and Flagyl. Will transition IV antibiotics to Flagyl and Levaquin oral on 09/25/2021. Patient wound culture negative to date, preliminary results for blood cultures negative to date Adjust antibiotics pending cultures: Wound culture with mixed karli currently. Blood cultures pending. Pathology pending. ID clinical pharmacist consulted for assistance with antibiotic recommendations. S/p debridement and amputation 5th digit 09/22/21. Stable (3) Type 2 diabetes mellitus, uncontrolled, with renal complications: Status: Acute Assessment and Plan: A1c 9.8%, was 9.5% last month and 14% prior to this. Uncontrolled Continue Accu-Cheks plus sliding scale insulin increase to moderate scale. Continue Lantus 32 units per day. Patient to bring and use her own Ozempic medication and take weekly on . Goal blood sugar <180 for best wound healing. Consult reinforcing rod layer for diet education. Continue consistent carb diet. Patient recently started following up with an spring encaser and can follow up outpatient. (4) Acute kidney injury superimposed on chronic kidney disease: Code(s): N17.9 - Acute kidney failure, unspecified; N18.9 - Chronic kidney disease, unspecified Status: Acute Assessment and Plan: Baseline creatinine 1.2; creatinine 2.4, GFR 20 on admission. Suspect prerenal etiology Continue gentle IV fluid hydration and reassess. Hold Lasix. Continue lisinopril for HTN. Monitor I/O. Trend BMP. Renal function showing improvement on 09/24/2021, consider discontinue IV fluids on 09/25/2021, pending labs Improvement (5) Hyponatremia: Code(s): E87.1 - Hypo-osmolality and hyponatremia Status: Acute Assessment and Plan: Sodium 128 on admission, corrected to 130 for hyperglycemia. Sodium 135 today with hyperglycemia correction; improving. Continue gentle IV fluid hydration Suspect secondary to hypovolemia (6) Coronary artery disease: Qualifiers: Coronary Disease-Associated Artery/Lesion type: unspecified vessel or lesion type [place] vs. transplanted heart: [place] heart Associated angina: without angina Qualified Code(s): I25.10 - Atherosclerotic heart disease of [place] coronary artery without angina pectoris Code(s): I
[2021-09-25 11:42] LABS: Glucose Point of Care 154 mg/dl (65-105)
[2021-09-25 14:00] VITALS: BP 121/72; PULSE 75; RESP 18; TEMP 37; O2SAT 98
== END 2021-09-25 16:25 | disposition home health service (06) | DRG 617 ==
LOC: ANHED 09-22 02:36 → ANH3MEDSUR 09-22 03:05
PROVIDERS: Hospitalist; Surgery; Admitting Provider Student in an Organized Health Care Education/Training Program; Emergency Provider Emergency Medicine; PCP Physician Assistant; Visit Provider Nurse Practitioner Family
PROC: 0Y6X0Z0 Detachment at Right 5th Toe, Complete, Open Approach (ICD-10-PCS; CPT 28805; principal; 2021-09-22 14:00)
DX: E11.69 Type 2 diabetes mellitus with other specified complication (principal); E87.1 Hypo-osmolality and hyponatremia; M86.171 Other acute osteomyelitis, right ankle and foot; L97.516 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 without evidence of necrosis; E11.621 Type 2 diabetes mellitus with foot ulcer; E11.22 Type 2 diabetes mellitus with diabetic chronic kidney disease; E11.40 Type 2 diabetes mellitus with diabetic neuropathy, unspecified; E11.65 Type 2 diabetes mellitus with hyperglycemia; E86.1 Hypovolemia; E78.5 Hyperlipidemia, unspecified; I12.9 Hypertensive chronic kidney disease with stage 1 through stage 4 chronic kidney disease, or unspecified chronic kidney disease; I48.0 Paroxysmal atrial fibrillation; I25.10 Atherosclerotic heart disease of native coronary artery without angina pectoris; N18.9 Chronic kidney disease, unspecified; N17.9 Acute kidney failure, unspecified; Z79.01 Long term (current) use of anticoagulants; Z79.4 Long term (current) use of insulin; Z79.899 Other long term (current) drug therapy; Z90.710 Acquired absence of both cervix and uterus; Z95.1 Presence of aortocoronary bypass graft; Z87.891 Personal history of nicotine dependence; D64.9 Anemia, unspecified
CPT/HCPCS: 36415; 73700; 80048; 80053; 82565; 82948; 83036; 83540; 83550; 83605; 85025; 85027; 87040; 87070; 87205; 88305; 88311; 93005; 96361; 96365; 96367; 96372; 97110; 97116; 97161; 97165; 97530; 97535; 99285; A9270; G0378; J0692; J0743; J1644; J1815; J2405; J2543; J2704; J3010; J3370; J7030; J7040

== ENCOUNTER 2021-09-27 20:28 | Inpatient (IN) | payer MEDICARE, SELFPAY ==
[2021-09-27] VITALS (11 sets, daily range): BP systolic 143–148; BP diastolic 76–98; PULSE 83–121; RESP 14–32; TEMP 36.6; O2SAT 97–100
--- NOTE | ~2021-09-27 | CT_ITS ---
EXAMINATION: CT abdomen pelvis wo con DATE: 09/27/2021 23:00 INDICATION: Nausea, vomiting, leukocytosis TECHNIQUE: Computed tomography (CT) of the abdomen and pelvis was performed without intravenous contr ast. Automated exposure control and iterative reconstruction technique were employed. Exam dose: 128 5.39 mGy-cm total exam DLP. COMPARISON: 06/18/2020 bilateral renal ultrasound FINDINGS: Status post sternotomy. The lung bases are clear of infiltrate or consolidation. Heart size is normal. No pericardial or pleural effusion. Sludge and stones are noted in the dependent aspect of the gallbladder. No gallbladder wall thickenin g or pericholecystic fluid or fat stranding. The liver, spleen unremarkable. No bile duct dilatation. Pancreatic calcifications suggest chronic pancreatitis. Normal morphology of the adrenal glands. Punctate nonobstructing mid right renal calculus. Bilateral perinephric stranding, left greater than right. No hydroureteronephrosis is noted on either side. No left urinary tract calculus. There is diffuse bladder wall thickening; consider cystitis and upper urinary tract infection. Correl ation with urinalysis is recommended. Retroverted uterus. The adnexal areas are unremarkable. There is atherosclerotic calcification of the abdominal aorta. No aneurysm. No intraperitoneal or ret roperitoneal or pelvic mass lesion or adenopathy or ascites. Normal appendix. No bowel obstruction or intraperitoneal free air. Prominent degenerative disc disease at L2-3. Osteopenia. No suspicious osteolytic or osteoblastic lesions are noted. IMPRESSION: Plantar wall thickening; consider cystitis Bilateral perinephric stranding, consider urinary tract infection, pyelonephritis Punctate nonobstructing mid right renal calculus Cholelithiasis Chronic pancreatitis Reviewed, dictated and finalized at [facility]. Reviewed, dictated and finalized at [facility]. IMPRESSION: Plantar wall thickening; consider cystitis Bilateral perinephric stranding, consider urinary tract infection, pyelonephrit is Punctate nonobstructing mid right renal calculus Cholelithiasis Chronic pancreatitis
--- NOTE | ~2021-09-27 | US_ITS ---
EXAMINATION: US arterial ankle brachial ind DATE: 09/30/2021 13:53 INDICATION: Nonhealing ulcer at the right ankle. Paresthesias with numbness and tingling at the feet . Peripheral lesser disease risk factors of diabetes, hypercholesterolemia and prior smoking. TECHNIQUE: Segmental pressures and plethysmographic and Doppler waveforms of the brachial and lower e xtremity arteries were obtained. COMPARISON: None. FINDINGS: Left brachial artery pressure of 155 mm Hg. Right brachial artery pressures unable to be obtained due to the presence of a PICC line at the right upper extremity. The right ankle-brachial index (ADELA) is 1.14 (normal >= 0.9-1.0). The right great toe-brachial index (TBI) is 0.07 (normal >= 0.65). Arterial Doppler waveforms are triphasic with brisk systolic upstroke s at both right posterior tibial artery. Right dorsalis pedis artery was unable to be assessed due to overlying bandaging material. The left ADELA is 1.12. The left TBI is 0.66. Arterial Doppler waveforms are biphasic with brisk systol ic upstrokes at both left posterior tibial and dorsalis pedis arteries. IMPRESSION: 1. Arterial occlusive disease to the right lower limb with normal ADELA but severely decreased right TB I. 2. No significant arterial occlusive disease to the left lower limb with normal left ADELA and TBI. Reviewed, dictated and finalized at location [facility]. IMPRESSION: 1. Arterial occlusive disease to the right lower limb with normal ADELA but sever [place] decreased right TBI. 2. No significant arterial occlusive disease to the left lower limb with normal left ADELA and TBI.
--- NOTE | ~2021-09-27 | XR_ITS ---
EXAMINATION: XR chest PICC line DATE: 09/30/2021 13:20 INDICATION: Central line placement. TECHNIQUE: A single frontal view of the chest was obtained. COMPARISON: Chest 2 views 07/14/2021 FINDINGS: The chest demonstrates clear lungs without pneumonia, pleural effusion, or pneumothorax. Th e heart size is normal. Median sternotomy wires and mediastinal surgical clips are seen, likely from prior coronary artery bypass grafting. A right upper extremity peripherally inserted central venous c atheter (PICC) is seen with tip in the superior vena cava. IMPRESSION: 1. PICC tip in the superior vena cava. Reviewed, dictated and finalized at location [facility].
[2021-09-27 20:55] LABS: Glucose Point of Care 182 mg/dl (65-105)
[2021-09-27] MEDS: ONDANSETRON INJ 4 MG/2 ML VIAL IV PUSH (20:59)
[2021-09-27 21:10] LABS: Basophils Absolute Auto 0.1 K/mm3 (0.0-0.1); Basophils Percent Auto 0.3 % (0.2-1.2); Eosinophils Absolute Auto 0.1 K/mm3 (0-0.3); Eosinophils Percent Auto 0.6 % (0-4.4); Hematocrit 33.9 % (37.0-47.0); Immature Granulocyte Absolute 0.31 K/mm3 (0.00-0.031); Immature Granulocyte Percent A 1.6 % (0-0.5); Lymphocytes Absolute Auto 4.84 K/mm3 (0.9-3.2); Lymphocytes Percent Auto 24.4 % (18.3-44.2); Mean Corpuscular HGB Conc 32.4 g/dl (32-36); Mean Corpuscular Hemoglobin 27.1 pg (26-34); Mean Corpuscular Volume 83.5 fl (80-100); Mean Platelet Volume 9.9 fl (7.4-10.4); Monocytes Absolute Auto 1.2 K/mm3 (0.1-0.6); Monocytes Percent Auto 6.2 % (2.6-8.5); Neutrophils Absolute Auto 13.3 K/mm3 (1.3-6.7); Neutrophils Percent Auto 66.9 % (45.5-73.1); Platelet Count Result 663 k/mm3 (150-375); Red Blood Count 4.06 M/mm3 (4.2-5.4); Red Cell Distribution Width 14.3 % (11.5-14.5); White Blood Count 19.9 K/mm3 (4.5-10.0)
[2021-09-27 21:24] LABS: Alanine Aminotransferase 25 U/L (6-35); Albumin Level 3.8 g/dL (3.5-5.1); Alkaline Phosphatase 143 U/L (38-126); Anion Gap 16 mmol/L (8-16); Aspartate Amino Transferase 25 U/L (14-36); Bilirubin,Total 0.5 mg/dL (0.2-1.3); Blood Urea Nitrogen 11 mg/dL (7-17); Calcium 8.7 mg/dL (8.4-10.2); Carbon Dioxide 21 mmol/L (22-30); Chloride 99 mmol/L (98-107); Estimated CRCL calculation 43 ml/min; Estimated Glomerular Filt Rate 35; Glucose 155 mg/dL (65-110); Lipase 63 U/L (23-300); Potassium 2.7 mmol/L (3.4-5.0); Sodium 136 mmol/L (137-145)
[2021-09-27] MEDS: SODIUM CHLORIDE 0.9% IV 1,000 ML 999 ML IV CONT (21:31)
[2021-09-27 21:36] LABS: CRP 8.8 mg/dL (<1.0)
[2021-09-27] MEDS: POTASSIUM CHLORIDE INJ 40 MEQ in SODIUM CHLORIDE 0.9% IV 500 ML 130 MEQ IVPB (21:39)
[2021-09-27 21:45] LABS: Lactic Acid Reflex 1.9 mmol/L (0.7-2.0)
[2021-09-27 22:09] LABS: Procalcitonin 0.2 ng/mL
[2021-09-28] VITALS (25 sets, daily range): BP systolic 121–157; BP diastolic 52–91; PULSE 78–99; RESP 12–21; TEMP 36.3–36.7; O2SAT 96–100; BMI 31.0
--- NOTE | 2021-09-28 00:40 | ED.GENADULT ---
HPI - General Adult General Chief complaint: Nausea/Vomiting/Diarrhea Stated complaint: NAUSEA Time Seen by Provider: 09/27/21 21:11 History of Present Illness HPI narrative: Patient is a 66-year-old female who presents the emergency department with chief complaint of nausea and vomiting. Patient reports she was just in the hospital after she had osteomyelitis of her right foot had an amputation of the toe and has a wound VAC in place. Patient states that since she has been home she is felt nauseated and started vomiting unable to keep anything down. Patient states that she decided to come back to the emergency department as she was not improving. Related Data Home Medications Medication Instructions Recorded Confirmed apixaban 5 mg tablet (Eliquis) 5 mg PO BID 09/21/21 09/22/21 atorvastatin 40 mg tablet 40 tablet PO HS 09/21/21 09/22/21 furosemide 40 mg tablet 40 mg PO BID 09/21/21 09/22/21 lisinopril 40 mg tablet 40 mg PO DAILY 09/21/21 09/22/21 insulin degludec 100 unit/mL (3 32 unit subcut HS 09/22/21 09/22/21 mL) subcutaneous pen (Tresiba FlexTouch U-100 insulin) semaglutide 0.25 mg or 0.5 mg (2 0.5 mg subcut WEEKLY 09/22/21 09/22/21 mg/1.5 mL) subcutaneous pen injector (Ozempic) Allergies Allergy/AdvReac Type Severity Reaction Status Date / Time No Known Allergies Allergy Unknown Verified 09/27/21 21:09 Review of Systems Review of Systems: A 10 system review of systems was completed on the patient and is negative except for what is stated in the HPI. Nursing and ancillary documentation was reviewed. [facility] Past Medical History Medical History Chronic kidney disease Coronary artery disease Diabetes type 2, controlled Diabetic foot ulcer Diabetic neuropathy Hyperlipidemia Hypertension Osteomyelitis Paroxysmal atrial fibrillation Urinary retention Surgical History Surgical History H/O: hysterectomy S/P CABG (coronary artery bypass graft) Family History Family History Sibling Diabetes mellitus All 4 siblings Family history of malignant neoplasm of thyroid sister Mother Family history of emphysema Father Acute myocardial infarction Social History Social History Smoking packs per day: 0.5 Smoking cigarettes per day: 10.0 Years smoked: 30 Smoking pack-years: 15.00 Smoking status: Former smoker Tobacco type: cigarettes Alcohol intake: never Substance use: never Spiritual care concerns: No Exam Narrative: GENERAL: Well-appearing, well-nourished, and in no acute distress. HEAD: Normocephalic, atraumatic. EYES: PERRLA and EOMI. ENT: Nares clear, no rhinorrhea or epistaxis. Mucous membranes moist. NECK: Supple. CHEST: Clear to auscultation. No respiratory distress. HEART: Regular rate and rhythm. No murmur heard. Normal peripheral pulses. ABDOMEN: Soft, mild tenderness to palpation, nondistended, normal active bowel sounds. EXTREMITIES: Normal range of motion. No edema. There is a wound VAC in place to the right lower extremity SKIN: Warm, dry, no rash. NEURO: No focal deficits. Alert and oriented x3. PSYCH: Normal mood and affect. Course Vital Signs Vital signs: Vital Signs Temperature 36.6 C 09/27/21 20:38 Pulse Rate 119 H 09/27/21 20:38 Respiratory Rate 32 H 09/27/21 20:38 Blood Pressure 143/98 H 09/27/21 20:38 Pulse Oximetry 100 09/27/21 20:38 Oxygen Delivery Room Air 09/27/21 20:38 Temperature 36.6 C 09/27/21 20:38 Pulse Rate 95 09/27/21 23:21 Respiratory Rate 15 09/27/21 23:21 Blood Pressure 144/76 H 09/27/21 23:21 Pulse Oximetry 100 09/27/21 23:21 Oxygen Delivery Room Air 09/27/21 20:38 Medical Decision Making Vital Signs Vital Signs: Vi
[2021-09-28 00:57] LABS: Appearance Urine Clear (Clear); Bilirubin Urine Negative (Negative); Blood Urine 3+ (Negative); Glucose Urine UA Trace mg/dL (Negative); Ketones Urine 1+ mg/dL (Negative); Leukocyte Esterase Ur Trace LEU/UL (Negative); Nitrate Urine Negative (Negative); Protein Urine 3+ mg/dL (Negative); Specific Grav Ur 1.025 (1.001-1.035); Urobilinogen Urine 0.2 mg/dL (<2.0)
[2021-09-28 01:12] LABS: Add Urine Microscopic? YES; Color Urine Dark Yellow (Yellow)
--- NOTE | 2021-09-28 02:13 | PC.NURSE ---
Lab reports 10 minutes to result UA micro. EDP updated.
[2021-09-28 02:18] LABS: Mucus Urine Rare /lpf; RBC Urine 21-50 /hpf (0-2); Squamous Epithelial Cell Urine Rare /hpf (Few); WBC Urine >75 /hpf
--- NOTE | 2021-09-28 02:28 | PM.IMHP ---
H&P: HPI History of Present Illness Date/Time: 09/28/21 02:28 Chief Complaint: Nausea and vomiting. Narrative: This is a 66-year-old female with past medical history significant for dyslipidemia, type 2 diabetes mellitus, paroxysmal atrial fibrillation, osteomyelitis, hypertension, diabetic neuropathy, diabetic foot ulcer, coronary artery disease, coronary artery bypass graft, neurogenic bladder patient self catheterizes, recurrent urinary tract infection. Patient is status post toe amputation and wound VAC placement recently discharged from the hospital on p.o. antibiotics comes back today due to intractable nausea and vomiting now for 3 days and decreased urine output. Patient denies any fevers, rigors, generalized malaise, abdominal pain,, sputum production, has had poor appetite. Preliminary workup was significant for urinalysis with numerous WBCs. Patient has been admitted for further evaluation management and treatment. Review of Systems Review of Systems: Nausea, vomiting, poor appetite, decreased urine output. Constitutional: Constitutional: Denies chills, Denies fever(s), Denies night sweats and Reports poor appetite Eyes: Eyes: Denies change in vision ENT: Denies dysphagia, Denies vertigo, Denies dizziness and Denies odynophagia Cardiovascular: Cardiovascular: Denies chest pain, Denies irregular heart rhythm, Denies lightheadedness, Denies palpitations and Denies dyspnea on exertion Respiratory: Respiratory: Denies chest congestion, Denies cough and Denies excessive phlegm production Gastrointestinal: Gastrointestinal: Denies abdominal pain, Denies dyspepsia, Denies heartburn, Denies diarrhea, Reports nausea and Reports vomiting Genitourinary: Genitourinary: Reports other (self catheterizes) Musculoskeletal: Musculoskeletal: Reports other (Right toe amputation, wound VAC in place) Integumentary/Breasts: Comments: Right foot wound with wound VAC in place Neurologic: Denies focal weakness and Denies Sensory deficit (Neuro) Psychiatric: Psychiatric: Reports no additional psychiatric complaints and Reports as per HPI Endocrine: Endocrine: Denies cold intolerance, Denies fatigue, Denies flushing, Denies heat intolerance, Denies polyphagia, Denies polydipsia and Denies palpitations Hematologic/Lymphatic: Hematologic/Lymphatic: Reports no additional hematologic/lymphatic complaints and Reports as per HPI Allergic/Immunologic: Allergic/Immunologic: Reports no additional allergic/immunologic complaints and Reports as per HPI [facility] Past Medical History Medical History Chronic kidney disease Coronary artery disease Diabetes type 2, controlled Diabetic foot ulcer Diabetic neuropathy Hyperlipidemia Hypertension Osteomyelitis Paroxysmal atrial fibrillation Urinary retention Surgical History Surgical History H/O: hysterectomy S/P CABG (coronary artery bypass graft) Family History Family History Sibling Diabetes mellitus All 4 siblings Family history of malignant neoplasm of thyroid sister Mother Family history of emphysema Father Acute myocardial infarction Social History Social History Smoking packs per day: 0.5 Smoking cigarettes per day: 10.0 Years smoked: 30 Smoking pack-years: 15.00 Smoking status: Former smoker Tobacco type: cigarettes Alcohol intake: never Substance use: never Substance use type: does not use Spiritual care concerns: No Meds Home Medications and Allergies Home Medications Medication Instructions Recorded Confirmed Type famotidine 40 mg tablet 40 mg PO DAILY #90 tabs 09/06/19 09/22/21 Rx apixaban 5 mg tablet (Eliquis) 5 mg PO BID 09/21/21 09/22/21 History atorvastatin 40 mg tablet 40 tablet PO
--- NOTE | 2021-09-28 03:26 | ADMGEN ---
This patient, Kylie Marquez, was admitted to 2 Medical Room [facility]-01 @[id number]. Patient/family oriented to hospital policies and general routines including ID bracelet, bed and alarms, visiting hours, pain management, procedures, bathroom and other care routines, personal items, smoking policy, room service/diet, and visiting hours. Information on how to activate the Rapid Response Team has been discussed. Patient/Family are encouraged to report perceived risks to care and to ask questions if they do not understand what they are told or what they should do.
[2021-09-28] MEDS: ERTAPENEM 1 GM/NS 50 ML 1 GM/50 ML BAG IVPB (03:31)
[2021-09-28] MEDS: SODIUM CHLORIDE 0.9% IV 1,000 ML 125 ML IV CONT ×3 (03:31→21:13)
[2021-09-28] MEDS: ONDANSETRON INJ 4 MG/2 ML VIAL IV PUSH ×2 (04:16→11:17)
[2021-09-28] MEDS: metroNIDAZOLE 250 MG TABLET 500 MG PO ×3 (06:16→21:07)
[2021-09-28 07:45] LABS: Glucose Point of Care 150 mg/dl (65-105)
--- NOTE | 2021-09-28 08:30 | PM.IMPN ---
Progress Note: A&P Assessment and Plan (1) Sepsis: Code(s): A41.9 - Sepsis, unspecified organism Status: Acute Assessment and Plan: Sirs criteria with heart rate between 119-121, white blood cells 19.9, and source of infection either being her foot or UTI Lactic Acid 1.9 Hydration given the ED continuous fluids at 125 Trend labs Blood cultures pending Urine culture pending Vancomycin and ertapenem on board Await culture results Tailor antibiotics to culture results (2) UTI (urinary tract infection): Qualifiers: Hematuria presence: with hematuria Urinary tract infection type: site unspecified Qualified Code(s): N39.0 - Urinary tract infection, site not specified; R31.9 - Hematuria, unspecified Code(s): N39.0 - Urinary tract infection, site not specified Status: Acute Assessment and Plan: UA appears infectious with dark yellow urine, trace leukocyte esterase, >75 wbc's rare epithelial cells Probably secondary to self cathing and neurogenic bladder and not using sterile technique Cultures pending Await culture results and deescalate antibiotics with sensitivities (3) Diabetic foot ulcer: Qualifiers: Diabetes mellitus type: type 2 Diabetic foot ulcer location: other Laterality: right Non-pressure ulcer stage: with bone involvement without evidence of necrosis Qualified Code(s): E11.621 - Type 2 diabetes mellitus with foot ulcer; L97.516 - 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 without evidence of necrosis Code(s): E11.621 - Type 2 diabetes mellitus with foot ulcer; L97.509 - Non-pressure chronic ulcer of other part of unspecified foot with unspecified severity Status: Acute Assessment and Plan: Patient is status post sharp debridement with amputation of right 5th toe Wound VAC in place WBC elevated at 19.9 continue wound care with instructs from [place] Wound care consult (4) Chronic kidney disease: Code(s): N18.9 - Chronic kidney disease, unspecified Status: Acute Assessment and Plan: BUN/Cr 01/13.50 Baseline looks to be about 1.2-1.8 Trend labs Avoid nephrotoxic medications Continue fluids for now Trend urine output could be secondary to uncontrolled diabetes or HTN (5) Type 2 diabetes mellitus, uncontrolled, with renal complications: Status: Acute Assessment and Plan: Current glucose 155 Looks to be controlled with Ozempic and 32units of tresiba Start Lantus 32units daily, and sliding scale Hypoglycemic protocol Hold the ozempic Trend glucose A1c on 09/22 was 9.8 Accu-Cheks AC and HS Carb consistent diet Adjust therapy as indicated (6) Hypertension: Code(s): I10 - Essential (primary) hypertension Status: Acute Assessment and Plan: Current BP is 146/73 Continue lisinopril Trend BP adjust therapy as indicated (7) Osteomyelitis: Qualifiers: Laterality: right Osteomyelitis location: foot Osteomyelitis type: unspecified type Qualified Code(s): M86.9 - Osteomyelitis, unspecified Code(s): M86.9 - Osteomyelitis, unspecified Status: Acute Assessment and Plan: Stop the levaquin as the WBC are trending up Start vanco and continue erta Foot Xray from 09/22 shows osteomyelitis involving the fifth metatarsal and base of the proximal phalanx with comminuted fracture of the head Amputation was performed on 09/22/[address] Cuevas Status post toe amputation Trend labs (8) Paroxysmal atrial fibrillation: Code(s): I48.0 - Paroxysmal atrial fibrillation Status: Chronic Assessment and Plan: Rate controlled at this time Continue eliquis Tele monitor Trend heart rate Adjust therapy as indicated (9) Coronary artery disease: Qualifiers: Associated angina: without angin
--- NOTE | 2021-09-28 08:30 | P.PNIM_ITS ---
Progress Note: A&P Assessment and Plan (1) Sepsis: Code(s): A41.9 - Sepsis, unspecified organism Status: Acute Assessment and Plan: * Sirs criteria with heart rate between 119-121, white blood cells 19.9, and so urce of infection either being her foot or UTI * Lactic Acid 1.9 * Hydration given the ED continuous fluids at 125 * Trend labs * Blood cultures pending * Urine culture pending * Vancomycin and ertapenem on board * Await culture results * Tailor antibiotics to culture results (2) UTI (urinary tract infection): Qualifiers: Hematuria presence: with hematuria Urinary tract infection type: site unspecified Qualified Code(s): N39.0 - Urinary tract infection, site not specified; R31.9 - Hematuria, unspecified Code(s): N39.0 - Urinary tract infection, site not specified Status: Acute Assessment and Plan: * UA appears infectious with dark yellow urine, trace leukocyte esterase, >75 wbc's rare epithelial cells * Probably secondary to self cathing and neurogenic bladder and not using sterile technique * Cultures pending * Await culture results and deescalate antibiotics with sensitivities (3) Diabetic foot ulcer: Qualifiers: Diabetes mellitus type: type 2 Diabetic foot ulcer location: other Laterality: right Non-pressure ulcer stage: with bone involvement without evidence of necrosis Qualified Code(s): E11.621 - Type 2 diabetes mellitus with foot ulcer; L97.516 - 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 without evidence of necrosis Code(s): E11.621 - Type 2 diabetes mellitus with foot ulcer; L97.509 - Non-pressure chronic ulcer of other part of unspecified foot with unspecified severity Status: Acute Assessment and Plan: * Patient is status post sharp debridement with amputation of right 5th toe * Wound VAC in place * WBC elevated at 19.9 * continue wound care with instructs from ID * Wound care consult (4) Chronic kidney disease: Code(s): N18.9 - Chronic kidney disease, unspecified Status: Acute Assessment and Plan: * BUN/Cr 1.50 * Baseline looks to be about 1.2-1.8 * Trend labs * Avoid nephrotoxic medications * Continue fluids for now * Trend urine output * could be secondary to uncontrolled diabetes or HTN (5) Type 2 diabetes mellitus, uncontrolled, with renal complications: Status: Acute Assessment and Plan: * Current glucose 155 * Looks to be controlled with Ozempic and 32units of tresiba * Start Lantus 32units daily, and sliding scale * Hypoglycemic protocol * Hold the ozempic * Trend glucose * A1c on 09/22 was 9.8 * Accu-Cheks AC and HS * Carb consistent diet * Adjust therapy as indicated (6) Hypertension: Code(s): I10 - Essential (primary) hypertension Status: Acute Assessment and Plan: * Current BP is 146/73 * Continue lisinopril * Trend BP * adjust therapy as indicated (7) Osteomyelitis: Qualifiers: Laterality: right Osteomyelitis location: foot Osteomyelitis type: unspecified type Qualified Code(s): M86.9 - Osteomyelitis, unspecified Code(s): M86.9 - Osteomyelitis, unspecified Status: Acute Assessment and Plan: * Stop the levaquin as the WBC are trending up * Start vanco and continue erta * Foot Xray from 09/22 shows osteomyelitis involving the fifth m
[2021-09-28] MEDS: FERROUS SULFATE 324 MG TABLET PO (09:59)
[2021-09-28] MEDS: FAMOTIDINE 20 MG TABLET 40 MG PO (10:00)
[2021-09-28] MEDS: lisinopriL 20 MG TABLET 40 MG PO (10:00)
[2021-09-28] MEDS: HEPARIN SODIUM 5,000 UNITS/ML VIAL 5000 UNITS SUB-Q ×2 (10:00→21:08)
[2021-09-28 10:10] LABS: Creatinine Urine 139.2 mg/dL; Urea Random Urine 416 MG/DL
[2021-09-28 10:12] LABS: Sodium Urine Random 40 meq/L
[2021-09-28 11:37] LABS: Glucose Point of Care 221 mg/dl (65-105)
[2021-09-28 16:33] LABS: Glucose Point of Care 165 mg/dl (65-105)
[2021-09-28] MEDS: ATORVASTATIN 40 MG TABLET PO (21:07)
[2021-09-28] MEDS: INSULIN GLARGINE (*BKC) 100 UNITS/ML 32 UNITS SUB-Q (21:08)
[2021-09-28 21:18] LABS: Glucose Point of Care 159 mg/dl (65-105)
[2021-09-29] VITALS (7 sets, daily range): BP systolic 133–145; BP diastolic 62–67; PULSE 76–87; RESP 14–21; TEMP 36.5–36.7; O2SAT 100
[2021-09-29] MEDS: ERTAPENEM 1 GM/NS 50 ML 1 GM/50 ML BAG IVPB (02:08)
[2021-09-29 05:09] LABS: Basophils Percent Auto 0.4 % (0.2-1.2); Eosinophils Absolute Auto 0.2 K/mm3 (0-0.3); Eosinophils Percent Auto 2.3 % (0-4.4); Hematocrit 25.8 % (37.0-47.0); Immature Granulocyte Absolute 0.23 K/mm3 (0.00-0.031); Immature Granulocyte Percent A 2.4 % (0-0.5); Lymphocytes Absolute Auto 2.14 K/mm3 (0.9-3.2); Lymphocytes Percent Auto 22.1 % (18.3-44.2); Mean Corpuscular Hemoglobin 27.3 pg (26-34); Mean Corpuscular Volume 88.1 fl (80-100); Mean Platelet Volume 9.5 fl (7.4-10.4); Monocytes Absolute Auto 0.7 K/mm3 (0.1-0.6); Monocytes Percent Auto 7.1 % (2.6-8.5); Neutrophils Absolute Auto 6.4 K/mm3 (1.3-6.7); Neutrophils Percent Auto 65.7 % (45.5-73.1); Platelet Count Result 414 k/mm3 (150-375); Red Blood Count 2.93 M/mm3 (4.2-5.4); Red Cell Distribution Width 14.6 % (11.5-14.5); White Blood Count 9.7 K/mm3 (4.5-10.0)
[2021-09-29 05:23] LABS: Alanine Aminotransferase 7 U/L (6-35); Albumin Level 2.6 g/dL (3.5-5.1); Alkaline Phosphatase 80 U/L (38-126); Anion Gap 6 mmol/L (8-16); Aspartate Amino Transferase 14 U/L (14-36); Bilirubin,Total 0.1 mg/dL (0.2-1.3); Blood Urea Nitrogen 11 mg/dL (7-17); Calcium 7.2 mg/dL (8.4-10.2); Carbon Dioxide 25 mmol/L (22-30); Chloride 108 mmol/L (98-107); Estimated CRCL calculation 53 ml/min; Estimated Glomerular Filt Rate 45; Glucose 109 mg/dL (65-110); Magnesium 1.6 mg/dL (1.6-2.3); Sodium 139 mmol/L (137-145)
[2021-09-29] MEDS: SODIUM CHLORIDE 0.9% IV 1,000 ML 125 ML IV CONT ×2 (05:26→18:23)
[2021-09-29] MEDS: ONDANSETRON INJ 4 MG/2 ML VIAL IV PUSH (05:26)
[2021-09-29] MEDS: POTASSIUM CHLORIDE 20 MEQ TABLET 40 MEQ PO (06:36)
[2021-09-29] MEDS: MAGNESIUM SULF 4 GM/WATER100ML 4 GM/100 ML BAG IVPB (06:37)
--- NOTE | 2021-09-29 07:45 | PM.IMPN ---
Progress Note: A&P Assessment and Plan (1) Sepsis: Code(s): A41.9 - Sepsis, unspecified organism Status: Acute Assessment and Plan: Sirs criteria with heart rate between 119-121, white blood cells 19.9, and source of infection either being her foot or UTI Lactic Acid 1.9 Hydration given the ED continuous fluids at 125 Trend labs Blood cultures NGTD Urine culture came back indeterminate, will recollect culture Vancomycin and cefepime currently on board Await culture results Tailor antibiotics to culture results (2) Osteomyelitis: Qualifiers: Laterality: right Osteomyelitis location: foot Osteomyelitis type: unspecified type Qualified Code(s): M86.9 - Osteomyelitis, unspecified Code(s): M86.9 - Osteomyelitis, unspecified Status: Acute Assessment and Plan: Start vanco and continue erta Foot Xray from 09/22 shows osteomyelitis involving the fifth metatarsal and base of the proximal phalanx with comminuted fracture of the head Amputation was performed on 09/22/[address] Cuevas Status post toe amputation Wound looks to be a big crater, there are areas of necrosis, and the wound bed appears agrees to be clancy general surgery consulted thank you for your help Antibiotics currently on cefepime and vancomycin Will defer further imaging to general surgery trend labs Trend labs (3) UTI (urinary tract infection): Qualifiers: Hematuria presence: with hematuria Urinary tract infection type: site unspecified Qualified Code(s): N39.0 - Urinary tract infection, site not specified; R31.9 - Hematuria, unspecified Code(s): N39.0 - Urinary tract infection, site not specified Status: Acute Assessment and Plan: UA appears infectious with dark yellow urine, trace leukocyte esterase, >75 wbc's rare epithelial cells Probably secondary to self cathing and neurogenic bladder and not using sterile technique Culture need to be recollected, as the other one came up as indeterminable Continue vanco and cefepime for now (4) Diabetic foot ulcer: Qualifiers: Diabetes mellitus type: type 2 Diabetic foot ulcer location: other Laterality: right Non-pressure ulcer stage: with bone involvement without evidence of necrosis Qualified Code(s): E11.621 - Type 2 diabetes mellitus with foot ulcer; L97.516 - 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 without evidence of necrosis Code(s): E11.621 - Type 2 diabetes mellitus with foot ulcer; L97.509 - Non-pressure chronic ulcer of other part of unspecified foot with unspecified severity Status: Acute Assessment and Plan: Patient is status post sharp debridement with amputation of right 5th toe Wound VAC is currently off WBC trending down and is currently 9.7 Wound care consult Pathology from surgery came back as osteomyelitis General surgery consulted (5) Chronic kidney disease: Code(s): N18.9 - Chronic kidney disease, unspecified Status: Acute Assessment and Plan: BUN/Cr improving and is currently Baseline looks to be about 1.2-1.8 Trend labs Urine labs: Sodium 40, Urea 416, Cr 139.2, FEUrea 32.6 Appears to be pre-renal Avoid nephrotoxic medications Continue fluids for now Trend urine output could be secondary to uncontrolled diabetes or HTN (6) Anemia: Code(s): D64.9 - Anemia, unspecified Status: Acute Assessment and Plan: H/H 8.0/25.8 Continue ferrous sulfate 324mg PO BID Trend H/H Transfuse as indicated Anemia labs iron 17, TIBC 174, % sat 10 (7) Type 2 diabetes mellitus, uncontrolled, with renal complications: Status: Acute Assessment and Plan: Current glucose 109 Looks to be controlled with Ozempic and 32units of tresiba Start Lantus 32units daily, and sliding scale Hypoglycemic protocol
--- NOTE | 2021-09-29 07:45 | P.PNIM_ITS ---
Progress Note: A&P Assessment and Plan (1) Sepsis: Code(s): A41.9 - Sepsis, unspecified organism Status: Acute Assessment and Plan: * Sirs criteria with heart rate between 119-121, white blood cells 19.9, and so urce of infection either being her foot or UTI * Lactic Acid 1.9 * Hydration given the ED continuous fluids at 125 * Trend labs * Blood cultures NGTD * Urine culture came back indeterminate, will recollect culture * Vancomycin and cefepime currently on board * Await culture results * Tailor antibiotics to culture results (2) Osteomyelitis: Qualifiers: Laterality: right Osteomyelitis location: foot Osteomyelitis type: unspecified type Qualified Code(s): M86.9 - Osteomyelitis, unspecified Code(s): M86.9 - Osteomyelitis, unspecified Status: Acute Assessment and Plan: * Start vanco and continue erta * Foot Xray from 09/22 shows osteomyelitis involving the fifth metatarsal and base of the proximal phalanx with comminuted fracture of the head * Amputation was performed on 09/22/[address] Cuevas * Status post toe amputation * Wound looks to be a big crater, there are areas of necrosis, and the wound bed appears agrees to be clancy * general surgery consulted thank you for your help * Antibiotics currently on cefepime and vancomycin * Will defer further imaging to general surgery * trend labs * Trend labs (3) UTI (urinary tract infection): Qualifiers: Hematuria presence: with hematuria Urinary tract infection type: site unspecified Qualified Code(s): N39.0 - Urinary tract infection, site not specified; R31.9 - Hematuria, unspecified Code(s): N39.0 - Urinary tract infection, site not specified Status: Acute Assessment and Plan: * UA appears infectious with dark yellow urine, trace leukocyte esterase, >75 wbc's rare epithelial cells * Probably secondary to self cathing and neurogenic bladder and not using sterile technique * Culture need to be recollected, as the other one came up as indeterminable * Continue vanco and cefepime for now (4) Diabetic foot ulcer: Qualifiers: Diabetes mellitus type: type 2 Diabetic foot ulcer location: other Laterality: right Non-pressure ulcer stage: with bone involvement without evidence of necrosis Qualified Code(s): E11.621 - Type 2 diabetes mellitus with foot ulcer; L97.516 - 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 without evidence of necrosis Code(s): E11.621 - Type 2 diabetes mellitus with foot ulcer; L97.509 - Non-pressure chronic ulcer of other part of unspecified foot with unspecified severity Status: Acute Assessment and Plan: * Patient is status post sharp debridement with amputation of right 5th toe * Wound VAC is currently off * WBC trending down and is currently 9.7 * Wound care consult * Pathology from surgery came back as osteomyelitis * General surgery consulted (5) Chronic kidney disease: Code(s): N18.9 - Chronic kidney disease, unspecified Status: Acute Assessment and Plan: * BUN/Cr improving and is currently * Baseline looks to be about 1.2-1.8 * Trend labs * Urine labs: Sodium 40, Urea 416, Cr 139.2, FEUrea 32.6 * Appears to be pre-renal * Avoid nephrotoxic medications * Continue fluids for now * Trend urine output * could be secondary to uncontrolled diabetes or HTN (6) Anemia: Code(s): D6
[2021-09-29 07:50] LABS: Glucose Point of Care 102 mg/dl (65-105)
[2021-09-29] MEDS: HEPARIN SODIUM 5,000 UNITS/ML VIAL 5000 UNITS SUB-Q ×2 (08:09→20:25)
[2021-09-29] MEDS: FERROUS SULFATE 324 MG TABLET PO ×2 (08:09→18:21)
[2021-09-29] MEDS: FAMOTIDINE 20 MG TABLET 40 MG PO (08:09)
[2021-09-29] MEDS: lisinopriL 20 MG TABLET 40 MG PO (08:09)
[2021-09-29] MEDS: ALPRAZolam (*CRX) 0.25 MG TABLET PO (09:27)
[2021-09-29] MEDS: COLLAGENASE OINT 30 GM TUBE 1 APPLIC TOPICAL (09:28)
--- NOTE | 2021-09-29 09:31 | PCWOUND ---
WOCN NOTE Placed call To [facility] to put home wound vac on hold
[2021-09-29 10:44] LABS: Appearance Urine Cloudy (Clear); Bilirubin Urine Negative (Negative); Blood Urine 2+ (Negative); Color Urine Yellow (Yellow); Glucose Urine UA Trace mg/dL (Negative); Ketones Urine Trace mg/dL (Negative); Leukocyte Esterase Ur 3+ LEU/UL (Negative); Nitrate Urine Negative (Negative); Protein Urine 2+ mg/dL (Negative); Urobilinogen Urine 0.2 mg/dL (<2.0)
[2021-09-29 10:51] LABS: Bacteria Urine Trace /hpf; Budding Yeast Urine Present /hpf; Mucus Urine Rare /lpf; RBC Urine 51-75 /hpf (0-2); Squamous Epithelial Cell Urine Rare /hpf (Few); WBC Clumps Urine Present /HPF; WBC Urine >75 /hpf
[2021-09-29 10:54] LABS: Add Urine Microscopic? YES
[2021-09-29 11:54] LABS: Glucose Point of Care 149 mg/dl (65-105)
[2021-09-29 16:25] LABS: Glucose Point of Care 137 mg/dl (65-105)
[2021-09-29] MEDS: ATORVASTATIN 40 MG TABLET PO (20:25)
[2021-09-29] MEDS: INSULIN GLARGINE (*BKC) 100 UNITS/ML 32 UNITS SUB-Q (20:26)
[2021-09-29 20:35] LABS: Glucose Point of Care 173 mg/dl (65-105)
[2021-09-30] MEDS: SODIUM CHLORIDE 0.9% IV 1,000 ML 125 ML IV CONT ×2 (03:08→14:17)
[2021-09-30 05:12] VITALS: BP 125/61; PULSE 78; RESP 14; TEMP 36.4; O2SAT 99
[2021-09-30 05:57] LABS: Basophils Absolute Auto 0.1 K/mm3 (0.0-0.1); Basophils Percent Auto 0.5 % (0.2-1.2); Eosinophils Absolute Auto 0.3 K/mm3 (0-0.3); Eosinophils Percent Auto 2.7 % (0-4.4); Hematocrit 26.5 % (37.0-47.0); Hemoglobin 8.4 g/dL (12.0-15.0); Immature Granulocyte Percent A 2.1 % (0-0.5); Lymphocytes Absolute Auto 1.69 K/mm3 (0.9-3.2); Mean Corpuscular HGB Conc 31.7 g/dl (32-36); Mean Corpuscular Hemoglobin 27.6 pg (26-34); Mean Corpuscular Volume 87.2 fl (80-100); Mean Platelet Volume 9.4 fl (7.4-10.4); Monocytes Absolute Auto 0.6 K/mm3 (0.1-0.6); Monocytes Percent Auto 6.8 % (2.6-8.5); Neutrophils Absolute Auto 6.6 K/mm3 (1.3-6.7); Neutrophils Percent Auto 69.9 % (45.5-73.1); Platelet Count Result 404 k/mm3 (150-375); Red Blood Count 3.04 M/mm3 (4.2-5.4); Red Cell Distribution Width 14.7 % (11.5-14.5); White Blood Count 9.4 K/mm3 (4.5-10.0)
[2021-09-30 06:09] LABS: Alanine Aminotransferase 6 U/L (6-35); Albumin Level 2.6 g/dL (3.5-5.1); Alkaline Phosphatase 79 U/L (38-126); Anion Gap 3 mmol/L (8-16); Aspartate Amino Transferase 17 U/L (14-36); Bilirubin,Total 0.3 mg/dL (0.2-1.3); Blood Urea Nitrogen 8 mg/dL (7-17); Calcium 7.1 mg/dL (8.4-10.2); Carbon Dioxide 24 mmol/L (22-30); Chloride 111 mmol/L (98-107); Estimated CRCL calculation 57 ml/min; Estimated Glomerular Filt Rate 50; Glucose 110 mg/dL (65-110); Magnesium 2.2 mg/dL (1.6-2.3); Potassium 3.5 mmol/L (3.4-5.0); Sodium 138 mmol/L (137-145)
[2021-09-30 07:49] LABS: Glucose Point of Care 106 mg/dl (65-105)
[2021-09-30] MEDS: HEPARIN SODIUM 5,000 UNITS/ML VIAL 5000 UNITS SUB-Q ×2 (08:01→20:43)
[2021-09-30] MEDS: FERROUS SULFATE 324 MG TABLET PO ×2 (08:01→16:49)
[2021-09-30] MEDS: lisinopriL 20 MG TABLET 40 MG PO (08:02)
[2021-09-30] MEDS: FAMOTIDINE 20 MG TABLET 40 MG PO (08:02)
[2021-09-30] MEDS: COLLAGENASE OINT 30 GM TUBE 1 APPLIC TOPICAL (08:06)
[2021-09-30 08:24] VITALS: O2SAT 96
--- NOTE | 2021-09-30 09:00 | PM.IMPN ---
Progress Note: A&P Assessment and Plan (1) Sepsis: Code(s): A41.9 - Sepsis, unspecified organism Status: Acute Assessment and Plan: Sirs criteria with heart rate between 119-121, white blood cells 19.9, and source of infection either being her foot or UTI Lactic Acid 1.9 Hydration given the ED continuous fluids at 125 Trend labs Blood cultures NGTD Urine culture came back indeterminate, will recollect culture which is pending Vancomycin and cefepime currently on board day 2 Await culture results Tailor antibiotics to culture results (2) Osteomyelitis: Qualifiers: Laterality: right Osteomyelitis location: foot Osteomyelitis type: unspecified type Qualified Code(s): M86.9 - Osteomyelitis, unspecified Code(s): M86.9 - Osteomyelitis, unspecified Status: Acute Assessment and Plan: Start vanco and continue erta Foot Xray from 09/22 shows osteomyelitis involving the fifth metatarsal and base of the proximal phalanx with comminuted fracture of the head Amputation was performed on 09/22/[address] Cuevas Status post toe amputation Wound looks to be a big crater, there are areas of necrosis, and the wound bed appears agrees to be clancy general surgery consulted thank you for your help Antibiotics currently on cefepime and vancomycin Will defer further imaging to general surgery trend labs Debridement with Santyl Will need 6 weeks of IV antibiotics PICC placement Pathology found osteo in the bone and in the margins ADELA bilaterally ordered (3) UTI (urinary tract infection): Qualifiers: Hematuria presence: with hematuria Urinary tract infection type: site unspecified Qualified Code(s): N39.0 - Urinary tract infection, site not specified; R31.9 - Hematuria, unspecified Code(s): N39.0 - Urinary tract infection, site not specified Status: Acute Assessment and Plan: UA appears infectious with dark yellow urine, trace leukocyte esterase, >75 wbc's rare epithelial cells Probably secondary to self cathing and neurogenic bladder and not using sterile technique culture has been recollected and is pending Continue vanco and cefepime for now (4) Diabetic foot ulcer: Qualifiers: Diabetes mellitus type: type 2 Diabetic foot ulcer location: other Laterality: right Non-pressure ulcer stage: with bone involvement without evidence of necrosis Qualified Code(s): E11.621 - Type 2 diabetes mellitus with foot ulcer; L97.516 - 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 without evidence of necrosis Code(s): E11.621 - Type 2 diabetes mellitus with foot ulcer; L97.509 - Non-pressure chronic ulcer of other part of unspecified foot with unspecified severity Status: Acute Assessment and Plan: Patient is status post sharp debridement with amputation of right 5th toe Wound VAC is currently off WBC trending down and is currently 9.4 Wound care consult Pathology from surgery came back as osteomyelitis General surgery consulted (5) Chronic kidney disease: Code(s): N18.9 - Chronic kidney disease, unspecified Status: Acute Assessment and Plan: BUN/Cr improving and is currently 8.10 Baseline looks to be about 1.2-1.8 Trend labs Urine labs: Sodium 40, Urea 416, Cr 139.2, FEUrea 32.6 Appears to be pre-renal Avoid nephrotoxic medications Continue fluids for now Trend urine output could be secondary to uncontrolled diabetes or HTN (6) Anemia: Code(s): D64.9 - Anemia, unspecified Status: Acute Assessment and Plan: H/H 8.4/26.5 Continue ferrous sulfate 324mg PO BID Trend H/H Transfuse as indicated Anemia labs iron 17, TIBC 174, % sat 10 (7) Type 2 diabetes mellitus, uncontrolled, with renal complications: Status: Acute Assessment and Plan: Current gluco
--- NOTE | 2021-09-30 09:00 | P.PNIM_ITS ---
Progress Note: A&P Assessment and Plan (1) Sepsis: Code(s): A41.9 - Sepsis, unspecified organism Status: Acute Assessment and Plan: * Sirs criteria with heart rate between 119-121, white blood cells 19.9, and so urce of infection either being her foot or UTI * Lactic Acid 1.9 * Hydration given the ED continuous fluids at 125 * Trend labs * Blood cultures NGTD * Urine culture came back indeterminate, will recollect culture which is pending * Vancomycin and cefepime currently on board day 2 * Await culture results * Tailor antibiotics to culture results (2) Osteomyelitis: Qualifiers: Laterality: right Osteomyelitis location: foot Osteomyelitis type: unspecified type Qualified Code(s): M86.9 - Osteomyelitis, unspecified Code(s): M86.9 - Osteomyelitis, unspecified Status: Acute Assessment and Plan: * Start vanco and continue erta * Foot Xray from 09/22 shows osteomyelitis involving the fifth metatarsal and base of the proximal phalanx with comminuted fracture of the head * Amputation was performed on 09/22/[address] Cuevas * Status post toe amputation * Wound looks to be a big crater, there are areas of necrosis, and the wound bed appears agrees to be clancy * general surgery consulted thank you for your help * Antibiotics currently on cefepime and vancomycin * Will defer further imaging to general surgery * trend labs * Debridement with Santyl * Will need 6 weeks of IV antibiotics * PICC placement * Pathology found osteo in the bone and in the margins * ADELA bilaterally ordered (3) UTI (urinary tract infection): Qualifiers: Hematuria presence: with hematuria Urinary tract infection type: site unspecified Qualified Code(s): N39.0 - Urinary tract infection, site not specified; R31.9 - Hematuria, unspecified Code(s): N39.0 - Urinary tract infection, site not specified Status: Acute Assessment and Plan: * UA appears infectious with dark yellow urine, trace leukocyte esterase, >75 wbc's rare epithelial cells * Probably secondary to self cathing and neurogenic bladder and not using sterile technique * culture has been recollected and is pending * Continue vanco and cefepime for now (4) Diabetic foot ulcer: Qualifiers: Diabetes mellitus type: type 2 Diabetic foot ulcer location: other Laterality: right Non-pressure ulcer stage: with bone involvement without evidence of necrosis Qualified Code(s): E11.621 - Type 2 diabetes mellitus with foot ulcer; L97.516 - 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 without evidence of necrosis Code(s): E11.621 - Type 2 diabetes mellitus with foot ulcer; L97.509 - Non-pressure chronic ulcer of other part of unspecified foot with unspecified severity Status: Acute Assessment and Plan: * Patient is status post sharp debridement with amputation of right 5th toe * Wound VAC is currently off * WBC trending down and is currently 9.4 * Wound care consult * Pathology from surgery came back as osteomyelitis * General surgery consulted (5) Chronic kidney disease: Code(s): N18.9 - Chronic kidney disease, unspecified Status: Acute Assessment and Plan: * BUN/Cr improving and is currently 8.10 * Baseline looks to be about 1.2-1.8 * Trend labs * Urine labs: Sodium 40, Urea 416, Cr 139.2, FEUrea 32.6 * Appears to be pre-renal * Avoid nephrotoxic medications * Continue fluids for now
[2021-09-30 11:30] LABS: Glucose Point of Care 201 mg/dl (65-105)
[2021-09-30] MEDS: INSULIN ASPART (*BKC) 100 UNITS/ML SUB-Q ×2 (11:44→16:49)
[2021-09-30 14:00] VITALS: BP 141/67; PULSE 89; RESP 16; TEMP 36.6; O2SAT 99
[2021-09-30] MEDS: CENTRAL LINE FLUSH 10 ML IV PUSH ×2 (14:49→20:43)
[2021-09-30 16:28] LABS: Glucose Point of Care 203 mg/dl (65-105)
--- NOTE | 2021-09-30 16:58 | PM.PNGS ---
Progress Note: A&P Assessment and Plan (1) Osteomyelitis: Qualifiers: Laterality: right Osteomyelitis location: foot Osteomyelitis type: unspecified type Qualified Code(s): M86.9 - Osteomyelitis, unspecified Code(s): M86.9 - Osteomyelitis, unspecified Status: Acute Assessment and Plan: Right diabetic foot ulcer status post debridement and amputation of the 5th toe and head of the metatarsal. There is a fair amount of slough and necrotic tissue in the wound bed, this could be related to the issues with the wound vac not functioning on admission vs other issues that could contribute to poor healing. Recommend ABIs to evaluate for arterial occlusive disease that could affect poor healing. Pathology also showed osteomyelitis at the bony margin - would recommend that she get a PICC line and will need 6 weeks of IV antibiotics. I discussed this with the Hospitalist today. Will continue Santyl dressing changes for enzymatic debridement at this time. She may need further excisional debridement in the future depending on how she progresses. (2) Diabetic foot ulcer: Qualifiers: Diabetes mellitus type: type 2 Diabetic foot ulcer location: other Laterality: right Non-pressure ulcer stage: with bone involvement without evidence of necrosis Qualified Code(s): E11.621 - Type 2 diabetes mellitus with foot ulcer; L97.516 - 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 without evidence of necrosis Code(s): E11.621 - Type 2 diabetes mellitus with foot ulcer; L97.509 - Non-pressure chronic ulcer of other part of unspecified foot with unspecified severity Status: Acute Plan I have discussed the patient's case and plan of care with Dr. Cuevas, who evaluated the patient yesterday. Subjective Subjective Date/Time Seen: 09/30/21 10:58 Patient reports: no new complaints and afebrile Interval history: Patient seen and examined with her daughter at the bedside. She denies any changes overnight. Still not having any pain. No specific complaints at this time. Review of Systems Review of Systems: All systems reviewed & are unremarkable except as noted in HPI and below Exam Const: General: comfortable and no acute distress Orientation/consciousness: patient oriented x3 Skin: Other: Right foot with open wound on the lateral aspect of the foot with bone exposed at the shaft of the 5th metatarsal and majority of the wound with yellow/woody slough and necrotic tissue, small area of pink granulating tissue in the center that is only about 20% of the wound. No purulent drainage, no crepitus, and no foul odor. Psych: Judgement: Good judgement present (Psych) Objective Data Vital Signs Vital Signs: Vital Signs - 24 hr 09/29/21 22:41 09/30/21 05:12 09/30/21 08:24 Temperature 97.7 F 97.6 F Pulse Rate 77 78 Respiratory Rate 14 14 Blood Pressure 142/62 H 125/61 Pulse Oximetry 100 99 96 Oxygen Delivery 09/30/21 08:00 09/30/21 14:00 Temperature 97.9 F Pulse Rate 89 Respiratory Rate 16 Blood Pressure 141/67 H Pulse Oximetry 99 Oxygen Delivery Room Air Intake/Output Intake/Output: Intake & Output 09/27/21 09/28/21 09/29/21 09/30/21 23:59 23:59 23:59 23:59 Intake Total 4640 4490 3440 Output Total 1200 2700 800 Balance 3440 1790 2640 Meds/Results Medications: Active Medications Generic Name Dose Route Start Last Admin Trade Name Freq PRN Reason Stop Dose Admin Acetaminophen 650 mg 09/28/21 02:43 Acetaminophen 325 Mg Tablet PO Q4H PRN Mild Pain (1-3) or Fever Hydrocodone Bitart/Acetaminophen 1 tab 09/28/21 04:25 Hydrocodone/Acetaminophen (*Crx) 5-325 Mg Tablet PO Q6H PRN Pain Rated 4-6 Atorvastatin Calcium 40 mg 09/28/21 21:00 09/29/21 20:25 Atorvastatin 40 Mg Tablet PO 40 mg HS SELMA Administration Collagenase 1 applic 09/29/21 09:00 09/30/21 08:06 Collagenase Oint 30 Gm Tube
[2021-09-30] MEDS: ATORVASTATIN 40 MG TABLET PO (20:44)
[2021-09-30] MEDS: INSULIN GLARGINE (*BKC) 100 UNITS/ML 32 UNITS SUB-Q (20:46)
[2021-09-30 21:55] VITALS: BP 154/66; PULSE 78; RESP 16; TEMP 36.8; O2SAT 98
[2021-09-30 22:20] LABS: Glucose Point of Care 192 mg/dl (65-105)
[2021-10-01] MEDS: SODIUM CHLORIDE 0.9% IV 1,000 ML 125 ML IV CONT (03:17)
[2021-10-01 05:59] VITALS: BP 145/69; PULSE 77; RESP 16; TEMP 36.4; O2SAT 99
[2021-10-01 07:03] LABS: Basophils Percent Auto 0.3 % (0.2-1.2); Eosinophils Absolute Auto 0.2 K/mm3 (0-0.3); Eosinophils Percent Auto 2.4 % (0-4.4); Hematocrit 26.9 % (37.0-47.0); Hemoglobin 8.2 g/dL (12.0-15.0); Immature Granulocyte Absolute 0.12 K/mm3 (0.00-0.031); Immature Granulocyte Percent A 1.4 % (0-0.5); Lymphocytes Absolute Auto 1.63 K/mm3 (0.9-3.2); Lymphocytes Percent Auto 18.8 % (18.3-44.2); Mean Corpuscular HGB Conc 30.5 g/dl (32-36); Mean Corpuscular Hemoglobin 27.3 pg (26-34); Mean Corpuscular Volume 89.7 fl (80-100); Mean Platelet Volume 9.4 fl (7.4-10.4); Monocytes Absolute Auto 0.5 K/mm3 (0.1-0.6); Monocytes Percent Auto 5.9 % (2.6-8.5); Neutrophils Absolute Auto 6.2 K/mm3 (1.3-6.7); Neutrophils Percent Auto 71.2 % (45.5-73.1); Platelet Count Result 374 k/mm3 (150-375); Red Cell Distribution Width 14.7 % (11.5-14.5); White Blood Count 8.7 K/mm3 (4.5-10.0)
[2021-10-01 07:08] LABS: Albumin Level 2.6 g/dL (3.5-5.1); Alkaline Phosphatase 91 U/L (38-126); Anion Gap 4 mmol/L (8-16); Aspartate Amino Transferase 14 U/L (14-36); Bilirubin,Total 0.1 mg/dL (0.2-1.3); Blood Urea Nitrogen 6 mg/dL (7-17); Calcium 7.8 mg/dL (8.4-10.2); Carbon Dioxide 25 mmol/L (22-30); Chloride 112 mmol/L (98-107); Estimated CRCL calculation 63 ml/min; Estimated Glomerular Filt Rate 56; Glucose 116 mg/dL (65-110); Potassium 3.5 mmol/L (3.4-5.0); Sodium 141 mmol/L (137-145)
--- NOTE | 2021-10-01 07:10 | P.PNIM_ITS ---
Progress Note: A&P Assessment and Plan (1) Sepsis: Code(s): A41.9 - Sepsis, unspecified organism Status: Acute Assessment and Plan: * On admission, Sirs criteria with heart rate between 119-121, white blood cells 19.9, and source of infection either being her foot or UTI, Lactic Acid 1.9 * Trend labs * Blood cultures NGTD * Urine culture came back indeterminate, repeat showed only mixed genital karli. * Vancomycin and cefepime currently on board day 05/14 respectively. (2) Osteomyelitis: Qualifiers: Laterality: right Osteomyelitis location: foot Osteomyelitis type: unspecified type Qualified Code(s): M86.9 - Osteomyelitis, unspecified Code(s): M86.9 - Osteomyelitis, unspecified Status: Acute Assessment and Plan: * Abx as above. * Foot Xray from 09/22 shows osteomyelitis involving the fifth metatarsal and base of the proximal phalanx with comminuted fracture of the head * Amputation was performed on 09/22/[address] Cuevas * Antibiotics currently on cefepime and vancomycin, will require 6 weeks additional OP IV ABX. * PICC line has been placed. * Pathology found osteo in the bone and in the margins, wound cultures as of recent have been negative. * ID pharm consult has been placed. * ABIs showed abnormal R TBI. Patient will need OP referral to vascular surgery upon D/C to optimize wound healing of the right foot. (3) UTI (urinary tract infection): Qualifiers: Hematuria presence: with hematuria Urinary tract infection type: site unspecified Qualified Code(s): N39.0 - Urinary tract infection, site not specified; R31.9 - Hematuria, unspecified Code(s): N39.0 - Urinary tract infection, site not specified Status: Acute Assessment and Plan: * Admission UA appears infectious with dark yellow urine, trace leukocyte esterase, >75 wbc's rare epithelial cells * Probably secondary to self-cathing and neurogenic bladder and not using sterile technique * Repeat culture showed only mixed genital karli. * Will D/C [place] upon d/c to allow patient to continue to self-cath. (4) Diabetic foot ulcer: Qualifiers: Diabetes mellitus type: type 2 Diabetic foot ulcer location: other Laterality: right Non-pressure ulcer stage: with bone involvement without evidence of necrosis Qualified Code(s): E11.621 - Type 2 diabetes mellitus with foot ulcer; L97.516 - 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 without evidence of necrosis Code(s): E11.621 - Type 2 diabetes mellitus with foot ulcer; L97.509 - Non-pressure chronic ulcer of other part of unspecified foot with unspecified severity Status: Acute Assessment and Plan: * Patient is status post sharp debridement with amputation of right 5th toe * Wound VAC is currently off * WBC trending down and is currently 8.7 * Wound care consult * Pathology from surgery came back as osteomyelitis * General surgery consulted and recommened PICC line placement with 6 wks antibiotics. * ABIs from 09/30 showed 1. Arterial occlusive disease to the right lower limb with normal ADELA but severely decreased right TBI. 2. No significant arterial occlusive disease to the left lower limb with normal left ADELA and TBI. (5) Chronic kidney disease: Code(s): N18.9 - Chronic kidney disease, unspecified Status: Acute Assessment and Plan: * BUN/Cr improving and is currently 6/1.0 * Baseline looks to be about 1.2-1.8 * Trend labs * Urine la
--- NOTE | 2021-10-01 07:10 | PM.IMPN ---
Progress Note: A&P Assessment and Plan (1) Sepsis: Code(s): A41.9 - Sepsis, unspecified organism Status: Acute Assessment and Plan: On admission, Sirs criteria with heart rate between 119-121, white blood cells 19.9, and source of infection either being her foot or UTI, Lactic Acid 1.9 Trend labs Blood cultures NGTD Urine culture came back indeterminate, repeat showed only mixed genital karli. Vancomycin and cefepime currently on board day 3/ respectively. (2) Osteomyelitis: Qualifiers: Laterality: right Osteomyelitis location: foot Osteomyelitis type: unspecified type Qualified Code(s): M86.9 - Osteomyelitis, unspecified Code(s): M86.9 - Osteomyelitis, unspecified Status: Acute Assessment and Plan: Abx as above. Foot Xray from 09/22 shows osteomyelitis involving the fifth metatarsal and base of the proximal phalanx with comminuted fracture of the head Amputation was performed on 09/22/[address] Cuevas Antibiotics currently on cefepime and vancomycin, will require 6 weeks additional OP IV ABX. PICC line has been placed. Pathology found osteo in the bone and in the margins, wound cultures as of recent have been negative. ID pharm consult has been placed. ABIs showed abnormal R TBI. Patient will need OP referral to vascular surgery upon D/C to optimize wound healing of the right foot. (3) UTI (urinary tract infection): Qualifiers: Hematuria presence: with hematuria Urinary tract infection type: site unspecified Qualified Code(s): N39.0 - Urinary tract infection, site not specified; R31.9 - Hematuria, unspecified Code(s): N39.0 - Urinary tract infection, site not specified Status: Acute Assessment and Plan: Admission UA appears infectious with dark yellow urine, trace leukocyte esterase, >75 wbc's rare epithelial cells Probably secondary to self-cathing and neurogenic bladder and not using sterile technique Repeat culture showed only mixed genital karli. Will D/C [place] upon d/c to allow patient to continue to self-cath. (4) Diabetic foot ulcer: Qualifiers: Diabetes mellitus type: type 2 Diabetic foot ulcer location: other Laterality: right Non-pressure ulcer stage: with bone involvement without evidence of necrosis Qualified Code(s): E11.621 - Type 2 diabetes mellitus with foot ulcer; L97.516 - 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 without evidence of necrosis Code(s): E11.621 - Type 2 diabetes mellitus with foot ulcer; L97.509 - Non-pressure chronic ulcer of other part of unspecified foot with unspecified severity Status: Acute Assessment and Plan: Patient is status post sharp debridement with amputation of right 5th toe Wound VAC is currently off WBC trending down and is currently 8.7 Wound care consult Pathology from surgery came back as osteomyelitis General surgery consulted and recommened PICC line placement with 6 wks antibiotics. ABIs from 09/30 showed 1. Arterial occlusive disease to the right lower limb with normal ADELA but severely decreased right TBI. 2. No significant arterial occlusive disease to the left lower limb with normal left ADELA and TBI. (5) Chronic kidney disease: Code(s): N18.9 - Chronic kidney disease, unspecified Status: Acute Assessment and Plan: BUN/Cr improving and is currently 6/1.0 Baseline looks to be about 1.2-1.8 Trend labs Urine labs: Sodium 40, Urea 416, Cr 139.2, FE Urea 32.6 Appears to be pre-renal Avoid nephrotoxic medications Continue fluids for now Trend urine output (6) Anemia: Code(s): D64.9 - Anemia, unspecified Status: Acute Assessment and Plan: H/H 8.2/26.9 Continue ferrous sulfate 324mg PO BID Trend H/H Transfuse as indicated Anemia labs iron 17, TIBC 174, % sat 10 (7) Type 2 diabetes peg
[2021-10-01] MEDS: CENTRAL LINE FLUSH 10 ML IV PUSH ×2 (07:24→14:43)
[2021-10-01 07:26] LABS: Alanine Aminotransferase < 6 U/L (6-35)
[2021-10-01 07:54] LABS: Glucose Point of Care 109 mg/dl (65-105)
[2021-10-01] MEDS: lisinopriL 20 MG TABLET 40 MG PO (08:46)
[2021-10-01] MEDS: FERROUS SULFATE 324 MG TABLET PO (08:46)
[2021-10-01] MEDS: HEPARIN SODIUM 5,000 UNITS/ML VIAL 5000 UNITS SUB-Q (08:46)
[2021-10-01] MEDS: FAMOTIDINE 20 MG TABLET 40 MG PO (08:46)
[2021-10-01] MEDS: COLLAGENASE OINT 30 GM TUBE 1 APPLIC TOPICAL (08:48)
[2021-10-01 11:51] LABS: Glucose Point of Care 179 mg/dl (65-105)
--- NOTE | 2021-10-01 13:16 | P.DS_ITS ---
DS: Admitting Diagnosis Discharge Date 10/01/2021 1600 <Letitia Dalton PA-C - Last Filed: 10/01/21 13:58> Admitting Diagnosis Nausea and Vomiting. <Letitia Dalton PA-C - Last Filed: 10/01/21 13:58> DS: Discharge Diagnosis Discharge Diagnosis (1) Sepsis: Code(s): A41.9 - Sepsis, unspecified organism <Letitia Dalton PA-C - Last Filed: 10/01/21 13:58> Status: Acute <Letitia Dalton PA-C - Last Filed: 10/01/21 13:58> Assessment and Plan: * Sirs criteria with heart rate between 119-121, white blood cells 19.9, and source of infection either being her foot or UTI * Lactic Acid 1.9 * Hydration given the ED continuous fluids at 125 * Trend labs * Blood cultures NGTD * Urine culture came back indeterminate, re-peat culture showed no growth. * Vancomycin and cefepime currently on board for osteo, pt with plan to continue intermission coordinator IV OP abx. <Letitia Dalton PA-C - Last Filed: 10/01/21 13:58> (2) Osteomyelitis: Qualifiers: Laterality: right Osteomyelitis location: foot Osteomyelitis type: unspecified type Qualified Code(s): M86.9 - Osteomyelitis, unspecified <Letitia Dalton PA-C - Last Filed: 10/01/21 13:58> Code(s): M86.9 - Osteomyelitis, unspecified <Letitia Dalton PA-C - Last Filed: 10/01/21 13:58> Status: Acute <Letitia Dalton PA-C - Last Filed: 10/01/21 13:58> Assessment and Plan: * Start vanco and transition to Rocephin both Q 24 hrs with renal dosing. * Foot Xray from 09/22 shows osteomyelitis involving the fifth metatarsal and base of the proximal phalanx with comminuted fracture of the head * Amputation was performed on 09/22/[address] Cuevas * Status post toe amputation * Wound looks to be a big crater, there are areas of necrosis, and the wound bed appears agrees to be clancy * general surgery consulted thank you for your help * Will need 6 weeks of IV antibiotics * PICC placement has been completed * Pathology found osteo in the bone and in the margins * ADELA show peripheral vascular disease significant in the right lower extremity. will have F/U OP. <Letitia Dalton PA-C - Last Filed: 10/01/21 13:58> (3) UTI (urinary tract infection): Qualifiers: Hematuria presence: with hematuria Urinary tract infection type: site unspecified Qualified Code(s): N39.0 - Urinary tract infection, site not specified; R31.9 - Hematuria, unspecified <Letitia Dalton PA-C - Last Filed: 10/01/21 13:58> Code(s): N39.0 - Urinary tract infection, site not specified <Letitia Dalton PA-C - Last Filed: 10/01/21 13:58> Status: Acute <Letitia Dalton PA-C - Last Filed: 10/01/21 13:58> Assessment and Plan: * UA appears infectious with dark yellow urine, trace leukocyte esterase, >75 wbc's rare epithelial cells * Probably secondary to self cathing and neurogenic bladder and not using sterile technique * culture has been recollected and is pending * ABX as above. <Letitia Dalton PA-C - Last Filed: 10/01/21 13:58> (4) Diabetic foot ulcer: Qualifiers: Diabetes mellitus type: type 2 Diabetic foot ulcer location: other Laterality: right Non-pressure ulcer stage: with bone involvement without evidence of necrosis Qualified Code(s): E11.621 - Type 2 diabetes mellitus with foot ulcer; L97.516 - 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 without evidence of necrosis <Letitia Dalton PA-C - Last Filed: 10/01/21 13:58> Code(s): E11.621 - Type 2 diabetes mellitus with
--- NOTE | 2021-10-01 13:16 | PM.DS ---
DS: Admitting Diagnosis Discharge Date 10/01/2021 1600 <Letitia Dalton PA-C - Last Filed: 10/01/21 13:58> Admitting Diagnosis Nausea and Vomiting. <Letitia Dalton PA-C - Last Filed: 10/01/21 13:58> DS: Discharge Diagnosis Discharge Diagnosis (1) Sepsis: Code(s): A41.9 - Sepsis, unspecified organism <Letitia Dalton PA-C - Last Filed: 10/01/21 13:58> Status: Acute <Letitia Dalton PA-C - Last Filed: 10/01/21 13:58> Assessment and Plan: Sirs criteria with heart rate between 119-121, white blood cells 19.9, and source of infection either being her foot or UTI Lactic Acid 1.9 Hydration given the ED continuous fluids at 125 Trend labs Blood cultures NGTD Urine culture came back indeterminate, re-peat culture showed no growth. Vancomycin and cefepime currently on board for osteo, pt with plan to continue fpc IV OP abx. <Letitia Dalton PA-C - Last Filed: 10/01/21 13:58> (2) Osteomyelitis: Qualifiers: Laterality: right Osteomyelitis location: foot Osteomyelitis type: unspecified type Qualified Code(s): M86.9 - Osteomyelitis, unspecified <Letitia Dalton PA-C - Last Filed: 10/01/21 13:58> Code(s): M86.9 - Osteomyelitis, unspecified <Letitia Dalton PA-C - Last Filed: 10/01/21 13:58> Status: Acute <Letitia Dalton PA-C - Last Filed: 10/01/21 13:58> Assessment and Plan: Start vanco and transition to Rocephin both Q 24 hrs with renal dosing. Foot Xray from 09/22 shows osteomyelitis involving the fifth metatarsal and base of the proximal phalanx with comminuted fracture of the head Amputation was performed on 09/22/[address] Cuevas Status post toe amputation Wound looks to be a big crater, there are areas of necrosis, and the wound bed appears agrees to be clancy general surgery consulted thank you for your help Will need 6 weeks of IV antibiotics PICC placement has been completed Pathology found osteo in the bone and in the margins ADELA show peripheral vascular disease significant in the right lower extremity. will have F/U OP. <Letitia Dalton PA-C - Last Filed: 10/01/21 13:58> (3) UTI (urinary tract infection): Qualifiers: Hematuria presence: with hematuria Urinary tract infection type: site unspecified Qualified Code(s): N39.0 - Urinary tract infection, site not specified; R31.9 - Hematuria, unspecified <Letitia Dalton PA-C - Last Filed: 10/01/21 13:58> Code(s): N39.0 - Urinary tract infection, site not specified <Letitia Dalton PA-C - Last Filed: 10/01/21 13:58> Status: Acute <Letitia Dalton PA-C - Last Filed: 10/01/21 13:58> Assessment and Plan: UA appears infectious with dark yellow urine, trace leukocyte esterase, >75 wbc's rare epithelial cells Probably secondary to self cathing and neurogenic bladder and not using sterile technique culture has been recollected and is pending ABX as above. <Letitia Dalton PA-C - Last Filed: 10/01/21 13:58> (4) Diabetic foot ulcer: Qualifiers: Diabetes mellitus type: type 2 Diabetic foot ulcer location: other Laterality: right Non-pressure ulcer stage: with bone involvement without evidence of necrosis Qualified Code(s): E11.621 - Type 2 diabetes mellitus with foot ulcer; L97.516 - 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 without evidence of necrosis <Letitia Dalton PA-C - Last Filed: 10/01/21 13:58> Code(s): E11.621 - Type 2 diabetes mellitus with foot ulcer; L97.509 - Non-pressure chronic ulcer of other part of unspecified foot with unspecified severity <Letitia Dalton PA-C - Last Filed: 10/01/21 13:58> Status: Acute <Letitia Dalton PA-C - Last Filed: 10/01/21 13:58> Assessment and Plan: Patient is status post sharp debridement with amputation of right 5th toe Wound VAC is currently off
[2021-10-01 14:52] VITALS: BP 169/73; PULSE 78; RESP 16; TEMP 36.5; O2SAT 100
[2021-10-01 15:06] LABS: EDCOVIDSCREEN Negative (Negative)
[2021-10-02 12:36] LABS: Osmolality, Urine 381 mOsm/kg (50-1200)
== END 2021-10-01 16:46 | DRG 872 ==
LOC: ANHED 21:11 → ANH2MED 09-28 02:55
PROVIDERS: Nurse Practitioner; Admitting Provider Internal Medicine; Emergency Provider Emergency Medicine; PCP Physician Assistant; Visit Provider Student in an Organized Health Care Education/Training Program
DX: A41.9 Sepsis, unspecified organism (principal); N39.0 Urinary tract infection, site not specified; M86.8X7 Other osteomyelitis, ankle and foot; N12 Tubulo-interstitial nephritis, not specified as acute or chronic; I48.0 Paroxysmal atrial fibrillation; E11.22 Type 2 diabetes mellitus with diabetic chronic kidney disease; I12.9 Hypertensive chronic kidney disease with stage 1 through stage 4 chronic kidney disease, or unspecified chronic kidney disease; N18.9 Chronic kidney disease, unspecified; N31.9 Neuromuscular dysfunction of bladder, unspecified; E11.51 Type 2 diabetes mellitus with diabetic peripheral angiopathy without gangrene; E11.621 Type 2 diabetes mellitus with foot ulcer; D64.9 Anemia, unspecified; E11.40 Type 2 diabetes mellitus with diabetic neuropathy, unspecified; I25.10 Atherosclerotic heart disease of native coronary artery without angina pectoris; Z89.421 Acquired absence of other right toe(s); I73.9 Peripheral vascular disease, unspecified; L97.514 Non-pressure chronic ulcer of other part of right foot with necrosis of bone; E78.5 Hyperlipidemia, unspecified; Z79.4 Long term (current) use of insulin; Z79.01 Long term (current) use of anticoagulants; Z87.891 Personal history of nicotine dependence; Z95.1 Presence of aortocoronary bypass graft; Z90.710 Acquired absence of both cervix and uterus; Z87.440 Personal history of urinary (tract) infections
CPT/HCPCS: 36415; 36569; 51701; 74176; 80053; 80202; 81001; 82570; 82948; 83605; 83690; 83735; 83935; 84145; 84300; 84540; 85025; 86140; 87040; 87086; 87088; 87426; 93922; 96361; 96365; 96366; 96367; 96372; 96375; 96376; 97161; 97165; 99285; A9270; C1751; C9803; G0378; J0692; J1335; J1644; J1815; J2405; J3370; J3475; J3480; J7030; J7040

== ENCOUNTER 2021-10-09 11:27 | Outpatient (RCR) | payer MEDICARE, SELFPAY ==
[2021-10-09 12:03] LABS: Basophils Absolute Auto 0.1 K/mm3 (0.0-0.1); Basophils Percent Auto 0.5 % (0.2-1.2); Eosinophils Absolute Auto 0.2 K/mm3 (0-0.3); Eosinophils Percent Auto 1.5 % (0-4.4); Hematocrit 27.8 % (37.0-47.0); Hemoglobin 8.7 g/dL (12.0-15.0); Immature Granulocyte Absolute 0.08 K/mm3 (0.00-0.031); Immature Granulocyte Percent A 0.7 % (0-0.5); Lymphocytes Absolute Auto 1.91 K/mm3 (0.9-3.2); Mean Corpuscular HGB Conc 31.3 g/dl (32-36); Mean Corpuscular Hemoglobin 27.4 pg (26-34); Mean Corpuscular Volume 87.4 fl (80-100); Mean Platelet Volume 10.4 fl (7.4-10.4); Monocytes Absolute Auto 0.8 K/mm3 (0.1-0.6); Monocytes Percent Auto 6.4 % (2.6-8.5); Neutrophils Percent Auto 74.9 % (45.5-73.1); Platelet Count Result 369 k/mm3 (150-375); Red Blood Count 3.18 M/mm3 (4.2-5.4); Red Cell Distribution Width 15.6 % (11.5-14.5); White Blood Count 11.9 K/mm3 (4.5-10.0)
[2021-10-09 13:41] LABS: Vancomycin Trough 24.4 ug/mL (10.0-20.0)
[2021-10-09 13:51] LABS: Alanine Aminotransferase 8 U/L (6-35); Albumin Level 2.9 g/dL (3.5-5.1); Alkaline Phosphatase 99 U/L (38-126); Anion Gap 13 mmol/L (8-16); Aspartate Amino Transferase 12 U/L (14-36); Bilirubin,Total 0.3 mg/dL (0.2-1.3); Blood Urea Nitrogen 16 mg/dL (7-17); Calcium 8.2 mg/dL (8.4-10.2); Carbon Dioxide 28 mmol/L (22-30); Chloride 93 mmol/L (98-107); Creatine Kinase 45 U/L (30-135); Estimated Glomerular Filt Rate 24; Glucose 284 mg/dL (65-110); Potassium 2.8 mmol/L (3.4-5.0); Sodium 134 mmol/L (137-145)
== END 2021-10-09 12:00 | disposition home or self-care (01) ==
LOC: ANHLAB 11:27
PROVIDERS: PCP Physician Assistant; Visit Provider Physician Assistant
DX: E11.621 Type 2 diabetes mellitus with foot ulcer (principal); L97.514 Non-pressure chronic ulcer of other part of right foot with necrosis of bone; M86.171 Other acute osteomyelitis, right ankle and foot
CPT/HCPCS: 36415; 80053; 80202; 82550; 85025

== ENCOUNTER 2021-10-09 17:23 | Inpatient (IN) | payer MEDICARE, SELFPAY ==
[2021-10-09] VITALS (15 sets, daily range): BP systolic 121–170; BP diastolic 55–94; PULSE 78–86; RESP 12–20; TEMP 36.3; O2SAT 98–100; BMI 31.2
--- NOTE | ~2021-10-09 | CT_ITS ---
EXAMINATION: CT foot RT wo con DATE: 10/17/2021 09:47 INDICATION: Right foot osteomyelitis and pain. TECHNIQUE: Computed tomography (CT) of the right foot was performed without intravenous contrast. Aut omated exposure control and iterative reconstruction technique were employed. The dose-length product was 496.22 mGy-cm. COMPARISON: Right foot CT 09/22/2021 FINDINGS: There is a chronic ununited fracture of medial aspect of head of first proximal phalanx in near-anatomic alignment with sclerosis at the margins of the fracture. There is amputation of diaphys is of fifth metatarsal. There are cortical erosions of diaphysis of fifth metatarsal. There are erosi ons of head and neck of fourth metatarsal with pathologic fracture. There is a nondisplaced fracture of base of fourth proximal phalanx. There is mild osteoarthritis of first metatarsophalangeal joint a nd some of the interphalangeal joints and midfoot joints. There are enthesophytes at the posterior an d plantar aspects of calcaneal tuberosity. There is soft tissue gas in the soft tissues plantar to fo urth metatarsal. IMPRESSION: 1. Amputation of diaphysis of fifth metatarsal with osteomyelitis involving the residual diaphysis. 2. Osteomyelitis involving head and neck of fourth metatarsal and base of fourth proximal phalanx wit h pathologic fractures. 3. 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 Reviewed, dictated and finalized at location A. IMPRESSION: 1. Amputation of diaphysis of fifth metatarsal with osteomyelitis involving the residual diaphysis. 2. Osteomyelitis involving head and neck of fourth metatarsal and base of fourt h proximal phalanx with pathologic fractures. 3. 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
--- NOTE | ~2021-10-09 | XR_ITS ---
XR chest PICC line 10/09/2021 18:36 Indication: Verification of PICC line placement Procedure: AP portable chest Comparison: Comparison to multiple prior studies sequentially, with oldest reviewed study dated 08/27. Findings: Status post median sternotomy for CABG. Heart size normal. Right subclavian PICC line tip i n the SVC. Shallow inspiration. Heart size normal. No focal air space disease, pulmonary edema, pleur al effusion or suspected pneumothorax. Impression: 1: No acute cardiopulmonary disease. Reviewed, dictated and finalized at location A. Impression: 1: No acute cardiopulmonary disease.
--- NOTE | ~2021-10-09 | NM_ITS ---
EXAMINATION: NM renal flow and function DATE: 10/16/2021 14:05 INDICATION: Acute kidney injury. TECHNIQUE: 6.8 mCi Tc-99m MAG3 was administered IV. The patient was scanned in the supine position. A posterior abdominal radionuclide angiogram was obtained. A subsequent time course of static images of the kidneys, ureters, and bladder was obtained. COMPARISON: CT abdomen and pelvis 09/27/21 FINDINGS: The posterior abdominal radionuclide angiogram and sequential static images show decreased size of the right kidney. Peak renal parenchymal uptake was 23 min in right kidney and 29 min in left kidney (normal peak 3-5 minutes). The relative early renal uptake was 36% on the right and 64% on t he left (<40% is abnormal). No abnormalities of the ureters or bladder are seen. T1/2 for clearance of activity from the right kidney and proximal collecting system was too long to m easure. T1/2 for clearance of activity from the left kidney and proximal collecting system was to long to randolph sure. IMPRESSION: 1. Asymmetric atrophy of right kidney, which yields 36% of total renal function. 2. Delayed bilateral contrast nephrograms, consistent with decreased kidney function. Reviewed, dictated and finalized at location A. IMPRESSION: 1. Asymmetric atrophy of right kidney, which yields 36% of total renal functio n. 2. Delayed bilateral contrast nephrograms, consistent with decreased kidney fu nction.
--- NOTE | ~2021-10-09 | US_ITS ---
US renal BI 10/10/2021 13:19 Procedure: Realtime transabdominal ultrasound of the kidneys and bladder. Indication: Elevated creatinine. Comparison: CT dated 09/27/2021 Findings: Renal echotexture is normal bilaterally without hydronephrosis, contour deforming mass or r enal calculus. The right kidney measures 10.6 cm and left kidney measures 12.9 cm. Bladder within no rmal limits. Impression: 1: Unremarkable renal ultrasound. No stones, masses or hydronephrosis. Reviewed, dictated and finalized at location A. Impression: 1: Unremarkable renal ultrasound. No stones, masses or hydronephrosis.
--- NOTE | 2021-10-09 18:04 | ECG_ITS ---
Measurements Intervals [place] Rate: 76 P: [place]: 0 QRS: 40 QRSD: 92 T: 97 QT: 396 QTc: 446 Interpretive Statements ATRIAL FLUTTER/TACHYCARDIA ANTEROSEPTAL INFARCT, AGE INDETERMINATE ST-T WAVE ABNORMALITY IN HIGH LATERAL LEADS- CONSIDER ISCHEMIA BASELINE ARTIFACT- I, III, AVR, AVL, AVF, V1-V2 ABNORMAL ECG Electronically Signed On 10-10-2021 6:55:56 CDT by Deondre Roldan D.O.
--- NOTE | 2021-10-09 18:04 | ED.RECABL ---
HPI - Recheck/Abnormal Lab/Rx General Chief Complaint: Recheck/Abnormal Lab/Rx Stated Complaint: low potassium - sent by home health nurse Time Seen by Provider: 10/09/21 17:56 History of Present Illness HPI narrative: 66-year-old female with a history of osteomyelitis of the right fifth digit status post amputation, currently receiving IV CTX and vancomycin through the PICC, HTN, DM, neurogenic bladder (self-caths), here for evaluation of low potassium found during routine labs by home health nurse. Patient was told this morning that her potassium was 2.8, and she was told to come directly to the emergency room. Patient takes Lasix and does not have potassium supplementation at home; unclear why she is on lasix as no documented hx of HF. She states that her stools have been loose and she has felt somewhat weak, but denies diarrhea, vomiting, nausea, paresthesias in her hands or feet. States that her right foot wound is being followed by podiatry, last saw last week; is scheduled for debridement next week. Vanc trough this morning was 24.4. Related Data Home Medications Medication Instructions Recorded Confirmed apixaban 5 mg tablet (Eliquis) 5 mg PO BID 09/21/21 09/28/21 atorvastatin 40 mg tablet 40 tablet PO HS 09/21/21 09/28/21 furosemide 40 mg tablet 40 mg PO BID 09/21/21 09/28/21 lisinopril 40 mg tablet 40 mg PO DAILY 09/21/21 09/28/21 insulin degludec 100 unit/mL (3 32 unit subcut HS 09/22/21 09/28/21 mL) subcutaneous pen (Tresiba FlexTouch U-100 insulin) Allergies Allergy/AdvReac Type Severity Reaction Status Date / Time No Known Allergies Allergy Unknown Verified 10/09/21 18:27 Review of Systems Review of Systems: Gen: Reports fatigue. Denies fevers or chills Eyes: Denies eye pain or visual change ENT: Denies congestion Respiratory: Denies shortness of breath or cough CV: Denies chest pain or palpitations GI: Denies abdominal pain nausea, emesis or diarrhea denies burning, urgency, frequency or hematuria Musculoskeletal: Denies back pain or muscle pain Neuro: Denies numbness, tingling, weakness or focal weakness Skin: Denies rash Except as documented, all other systems reviewed and negative PMF Past Medical History Medical History Chronic kidney disease Coronary artery disease Diabetes type 2, controlled Diabetic foot ulcer Diabetic neuropathy Hyperlipidemia Hypertension Osteomyelitis Paroxysmal atrial fibrillation Urinary retention Surgical History Surgical History H/O: hysterectomy S/P CABG (coronary artery bypass graft) Family History Family History Sibling Diabetes mellitus All 4 siblings Family history of malignant neoplasm of thyroid sister Mother Family history of emphysema Father Acute myocardial infarction Social History Social History Smoking packs per day: 0.5 Smoking cigarettes per day: 10.0 Years smoked: 30 Smoking pack-years: 15.00 Smoking status: Former smoker Tobacco type: cigarettes Alcohol intake: never Substance use: never Substance use type: does not use Spiritual care concerns: No Exam Narrative: APPEARANCE: Well appearing, no pain in distress, well-nourished. Head: Normocephalic and atraumatic. EYES: PERRLA/EOMI, conjunctivae clear NOSE: No nasal drainage EARS: External ear normal in appearance THROAT: Oropharynx is clear. Mucous membranes are moist. NECK: Supple. No adenopathy, no masses. RESPIRATORY: Airway patent, respirations nonlabored. Clear to auscultation bilaterally, no rales, rhonchi, wheezing. CARDIOVASCULAR: Regular rate and rhythm without murmurs, rubs, or gallops. ABDOMINAL: Normoactive bowel sounds. Soft, nontender, nondistended. No rebound tenderness or guard
[2021-10-09 18:27] LABS: Basophils Absolute Auto 0.1 K/mm3 (0.0-0.1); Basophils Percent Auto 0.5 % (0.2-1.2); Eosinophils Absolute Auto 0.2 K/mm3 (0-0.3); Eosinophils Percent Auto 1.6 % (0-4.4); Hematocrit 28.7 % (37.0-47.0); Hemoglobin 9.1 g/dL (12.0-15.0); Immature Granulocyte Absolute 0.06 K/mm3 (0.00-0.031); Immature Granulocyte Percent A 0.5 % (0-0.5); Lymphocytes Absolute Auto 2.28 K/mm3 (0.9-3.2); Lymphocytes Percent Auto 18.3 % (18.3-44.2); Mean Corpuscular HGB Conc 31.7 g/dl (32-36); Mean Corpuscular Hemoglobin 27.7 pg (26-34); Mean Corpuscular Volume 87.2 fl (80-100); Mean Platelet Volume 10.2 fl (7.4-10.4); Monocytes Absolute Auto 0.6 K/mm3 (0.1-0.6); Monocytes Percent Auto 5.1 % (2.6-8.5); Neutrophils Absolute Auto 9.2 K/mm3 (1.3-6.7); Platelet Count Result 426 k/mm3 (150-375); Red Blood Count 3.29 M/mm3 (4.2-5.4); Red Cell Distribution Width 15.6 % (11.5-14.5); White Blood Count 12.4 K/mm3 (4.5-10.0)
[2021-10-09 18:35] LABS: Alanine Aminotransferase 10 U/L (6-35); Albumin Level 3.5 g/dL (3.5-5.1); Alkaline Phosphatase 102 U/L (38-126); Anion Gap 12 mmol/L (8-16); Aspartate Amino Transferase 16 U/L (14-36); Bilirubin,Total 0.5 mg/dL (0.2-1.3); Blood Urea Nitrogen 17 mg/dL (7-17); Calcium 8.2 mg/dL (8.4-10.2); Carbon Dioxide 29 mmol/L (22-30); Chloride 94 mmol/L (98-107); Estimated CRCL calculation 26 ml/min; Estimated Glomerular Filt Rate 19; Glucose 304 mg/dL (65-110); Magnesium 1.9 mg/dL (1.6-2.3); Potassium 3.1 mmol/L (3.4-5.0); Sodium 135 mmol/L (137-145)
[2021-10-09] MEDS: POTASSIUM CHLORIDE 20 MEQ TABLET 40 MEQ PO (18:59)
[2021-10-09] MEDS: SODIUM CHLORIDE 0.9% IV 1,000 ML 999 ML IV CONT (19:41)
--- NOTE | 2021-10-09 19:51 | PM.IMHP ---
H&P: HPI History of Present Illness Date/Time: 10/09/21 19:51 Chief Complaint: hypokalemia Narrative: This is a 66-year-old female with past medical history significant for insulin dependent diabetes mellitus, neurogenic bladder, self catheterization, bilateral diabetic foot, status post 5th toe amputation and 5th metatarsal head amputation, peripheral diabetic neuropathy, chronic kidney disease, coronary artery disease, paroxysmal atrial fibrillation, osteomyelitis. Patient presents to the emergency room after home healthcare franko lab work for her and came back with a potassium of 2.8 and slightly elevated and creatinine. Patient was sent over to emergency room for further evaluation. patient denied any fevers, rigors,chills,nausea,vomiting, is states that she has been feeling well has appointment with her gas maker helper in the outpatient setting for further debridement of right foot ulcer. preliminary workup was significant for urinalysis with numerous WBCs present, creatinine 2.5. WBC 12,000. Patient is been admitted for further evaluation management and treatment. Review of Systems Review of Systems: ABNORMAL POTASSIUM LEVEL ABNORMAL KIDNEY FUNCTION Constitutional: Constitutional: Denies chills, Denies fever(s), Denies malaise, Denies night sweats, Denies poor appetite and Denies weakness Eyes: Eyes: Denies change in vision ENT: Denies dysphagia, Denies vertigo, Denies dizziness and Denies odynophagia Cardiovascular: Cardiovascular: Denies chest pain, Denies syncope, Denies irregular heart rhythm, Denies lightheadedness and Denies palpitations Respiratory: Respiratory: Denies chest congestion, Denies cough, Denies excessive phlegm production and Denies dyspnea Gastrointestinal: Gastrointestinal: Denies abdominal pain, Denies dyspepsia, Denies heartburn, Denies nausea and Denies vomiting Genitourinary: Genitourinary: Reports other ( SELF CATHETERIZATION) Musculoskeletal: Musculoskeletal: Reports other ( bilateral diabetic foot) Integumentary/Breasts: Skin/Breast: Reports skin ulcer Neurologic: Denies vertigo, Denies dizziness, Denies focal weakness and Denies Sensory deficit (Neuro) Psychiatric: Psychiatric: Reports no additional psychiatric complaints and Reports as per HPI Endocrine: Endocrine: Denies cold intolerance, Denies fatigue, Denies flushing, Denies heat intolerance, Denies polyphagia, Denies polydipsia and Denies palpitations Hematologic/Lymphatic: Hematologic/Lymphatic: Reports no additional hematologic/lymphatic complaints and Reports as per HPI Allergic/Immunologic: Allergic/Immunologic: Reports no additional allergic/immunologic complaints and Reports as per HPI [facility] Past Medical History Medical History Chronic kidney disease Coronary artery disease Diabetes type 2, controlled Diabetic foot ulcer Diabetic neuropathy Hyperlipidemia Hypertension Osteomyelitis Paroxysmal atrial fibrillation Urinary retention Surgical History Surgical History H/O: hysterectomy S/P CABG (coronary artery bypass graft) Family History Family History (Updated 10/09/21 @ 21:44 by Teressa Rodriguez RN) Sibling Thymus cancer Diabetes mellitus All 4 siblings Lung cancer, lower lobe Melanoma Lymph edema Mother Family history of emphysema Father Acute myocardial infarction Social History Social History Smoking packs per day: 0.5 Smoking cigarettes per day: 10.0 Years smoked: 30 Smoking pack-years: 15.00 Smoking status: Never smoker Tobacco type: cigarettes Second hand tobacco smoke exposure: Yes ( smokes) Alcohol intake: former Substance use: never Substance use type: does not use Spiritual care concerns: No Meds Home Medications and Allergies Home Medications Medication Instruction
[2021-10-09 20:56] LABS: SARS-CoV-2 RNA PCR Negative
--- NOTE | 2021-10-09 21:02 | PC.NURSE ---
Attempted to call report to [address] [place] [address] multiple times and have received no answer. Will notify charge nurse at this time.
--- NOTE | 2021-10-09 21:40 | ADMGEN ---
This patient, Kylie Marquze, was admitted to Medical Room 347-. Patient/family oriented to hospital policies and general routines including ID bracelet, bed and alarms, visiting hours, pain management, procedures, bathroom and other care routines, personal items, smoking policy, room service/diet, and visiting hours. Information on how to activate the Rapid Response Team has been discussed. Patient/Family are encouraged to report perceived risks to care and to ask questions if they do not understand what they are told or what they should do.
[2021-10-10 00:40] LABS: Add Urine Microscopic? YES; Appearance Urine Slightly Cloudy (Clear); Bilirubin Urine Negative (Negative); Blood Urine 3+ (Negative); Color Urine Light Yellow (Yellow); Glucose Urine UA 1+ mg/dL (Negative); Ketones Urine Negative (Negative); Leukocyte Esterase Ur 2+ LEU/UL (Negative); Nitrate Urine Negative (Negative); Protein Urine 2+ mg/dL (Negative); Urobilinogen Urine 0.2 mg/dL (<2.0); pH Urine 6.5 (5.0-9.0)
[2021-10-10 00:44] LABS: Bacteria Urine Trace /hpf; RBC Urine 21-50 /hpf (0-2); Squamous Epithelial Cell Urine Rare /hpf (Few); WBC Urine >75 /hpf
[2021-10-10 01:18] LABS: Glucose Point of Care 288 mg/dl (65-105)
[2021-10-10] MEDS: INSULIN GLARGINE (*BKC) 100 UNITS/ML 32 UNITS SUB-Q ×2 (01:21→22:56)
[2021-10-10 05:48] LABS: Anion Gap 7 mmol/L (8-16); Blood Urea Nitrogen 16 mg/dL (7-17); Carbon Dioxide 30 mmol/L (22-30); Chloride 99 mmol/L (98-107); Estimated CRCL calculation 26 ml/min; Estimated Glomerular Filt Rate 19; Glucose 236 mg/dL (65-110); Potassium 3.4 mmol/L (3.4-5.0); Sodium 136 mmol/L (137-145)
[2021-10-10 05:56] LABS: Basophils Absolute Auto 0.1 K/mm3 (0.0-0.1); Basophils Percent Auto 0.7 % (0.2-1.2); Eosinophils Absolute Auto 0.2 K/mm3 (0-0.3); Eosinophils Percent Auto 2.8 % (0-4.4); Hematocrit 24.6 % (37.0-47.0); Hemoglobin 7.6 g/dL (12.0-15.0); Immature Granulocyte Absolute 0.04 K/mm3 (0.00-0.031); Immature Granulocyte Percent A 0.5 % (0-0.5); Lymphocytes Percent Auto 21.6 % (18.3-44.2); Mean Corpuscular HGB Conc 30.9 g/dl (32-36); Mean Corpuscular Hemoglobin 27.1 pg (26-34); Mean Corpuscular Volume 87.9 fl (80-100); Mean Platelet Volume 10.4 fl (7.4-10.4); Monocytes Absolute Auto 0.5 K/mm3 (0.1-0.6); Monocytes Percent Auto 6.5 % (2.6-8.5); Neutrophils Absolute Auto 5.7 K/mm3 (1.3-6.7); Neutrophils Percent Auto 67.9 % (45.5-73.1); Platelet Count Result 333 k/mm3 (150-375); Red Cell Distribution Width 15.5 % (11.5-14.5); White Blood Count 8.3 K/mm3 (4.5-10.0)
[2021-10-10 06:55] VITALS: BP 142/76; PULSE 67; RESP 21; TEMP 36.6; O2SAT 100
--- NOTE | 2021-10-10 07:01 | PC.NURSE ---
Notified exchange at 0640 for new routine consult for Dr Cuevas for a right foot wound. Dr Soni called back at 0650 and patient was discussed. He is to see patient today.
[2021-10-10 08:02] LABS: Glucose Point of Care 220 mg/dl (65-105)
[2021-10-10] MEDS: cefTRIAXone 2 GM in SODIUM CHLORIDE 0.9% IV 100 ML 200 ML IVPB (10:14)
[2021-10-10] MEDS: FERROUS SULFATE 324 MG TABLET PO (10:14)
[2021-10-10] MEDS: APIXABAN 5 MG TABLET PO ×2 (10:14→22:56)
[2021-10-10] MEDS: FAMOTIDINE 20 MG TABLET 40 MG PO (10:15)
--- NOTE | 2021-10-10 11:02 | PM.CNNEP ---
Assessment and Plan Additional Plan 1. Kylie has chronic kidney disease. Her baseline creatinine is 1.4 and GFR is 38 consistent with stage III B chronic kidney disease. This is most likely due to diabetes and hypertension. 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 She has been following with Dr. White in the office. He was considering doing a renal biopsy at some point but the decision has not been made. 2. The patient has acute kidney injury. Her creatinine was running between 1.2 and 1.6 last hospital stay. It was not trending in 1 particular direction while here. Urinalysis shows pyuria plus hematuria. On admission this time the patient's creatinine was 2.1 then yoel to 2.5 and renal consultation was requested. The patient denies bloody urine, foamy urine, kidney stones, or bladder infections. She has no pain with urination. She does do self-catheterizations and these have been going smoothly. She makes a little bit of urine between the catheterizations and there is no pain with micturition. The patient denies any itching or skin rash. The patient could have dehydration. She was not eating and drinking as well as she normally does and also she was on furosemide. The patient could have allergic interstitial nephritis. She is on vancomycin and cefepime. Either 1 could cause this. However she does not have a rash fever or eosinophilia. Patient could have a direct defect by vancomycin on the kidneys. At this point will give her some IV fluids. I talked with Dr. Mckeon about the possibility of allergic interstitial nephritis. Consider changing the vancomycin and ceftriaxone to other antibiotics. Will get an ultrasound, CPK, urine electrolytes,. 3. The patient has hypertension. She is currently on no antihypertensives. Her lisinopril was held, appropriately. Her blood pressure is under good control. 4. The patient has diabetes. He is on Accu-Cheks and insulin. This is being managed by the hospitalists. 5. The patient has pyuria. This is being covered by her antibiotics. She also intermittently straight cath so could have some colonization in the bladder as well. 6. The patient's sodium level is slightly low the. This might be due to her high sugar. Will follow this along. History of Present Illness Reason for Consult Consult date: 10/10/21 Chief Complaint Chief complaint: SHREYA History of Present Illness Narrative: Kylie is a very pleasant 66-year-old lady who has diabetes, diabetic neuropathy, foot ulcer on the right foot, neurogenic bladder managed with self catheterization, chronic kidney disease who is followed by Dr. White in the office, coronary disease, paroxysmal atrial fibrillation, osteomyelitis. The patient was just recently in the hospital. This is for a sore on her foot. She was treated with antibiotics and sent home with a PICC line. She has been getting the antibiotics routinely at home namely ceftriaxone and vancomycin. She had some blood work done by home health and her potassium was low and her creatinine was high so she was sent to the ER. She is not having any itching. No skin rash. No some unusual swelling. No shortness of breath or chest pain. She is not taking any nonsteroidal anti-inflammatory agents. She is eating and drinking okay but not great. She has been taking furosemide plus lisinopril at home. The patient sees Dr. White in the office. Apparently many years ago she had an infection in her foot and received antibiotics. She had renal failure from that. She isn't sure if it was infection of the antibiotics that did it but she almost went on dialysis. She recovered but not completely. In the last couple of years it was noted that her creatinine was starting to rise again so she went to see Dr. White in the office. She also has proteinuria. It is felt to be due to diabetes and high blood pressure but he was considering a renal biopsy as well.
[2021-10-10 11:27] LABS: Glucose Point of Care 248 mg/dl (65-105)
--- NOTE | 2021-10-10 12:24 | PM.IMPN ---
Progress Note: A&P Assessment and Plan (1) UTI (urinary tract infection): Qualifiers: Hematuria presence: with hematuria Urinary tract infection type: site unspecified Qualified Code(s): N39.0 - Urinary tract infection, site not specified; R31.9 - Hematuria, unspecified Code(s): N39.0 - Urinary tract infection, site not specified Status: Acute Assessment and Plan: cultures in progress patient is on ceftriaxone continue to monitor (2) Hypokalemia: Code(s): E87.6 - Hypokalemia Status: Acute Assessment and Plan: replace as needed (3) Acute kidney injury superimposed on chronic kidney disease: Code(s): N17.9 - Acute kidney failure, unspecified; N18.9 - Chronic kidney disease, unspecified Status: Acute Assessment and Plan: holding Lasix IV fluids Monitor creatinine. Differential does include AIN. Possibly from antibiotics. Discussed with Renal. Consult Nephrology (4) Type 2 diabetes mellitus, uncontrolled, with renal complications: Status: Acute Assessment and Plan: resume home meds continue to monitor (5) Diabetic neuropathy: Code(s): E11.40 - Type 2 diabetes mellitus with diabetic neuropathy, unspecified Status: Acute Assessment and Plan: unchanged (6) Chronic kidney disease: Code(s): N18.9 - Chronic kidney disease, unspecified Status: Acute Assessment and Plan: continue to monitor (7) Osteomyelitis: Qualifiers: Laterality: right Osteomyelitis location: foot Osteomyelitis type: unspecified type Qualified Code(s): M86.9 - Osteomyelitis, unspecified Code(s): M86.9 - Osteomyelitis, unspecified Status: Acute Assessment and Plan: PICC line in place continue vancomycin ceftriaxone (8) Leukocytosis (leucocytosis): Code(s): D72.829 - Elevated white blood cell count, unspecified Status: Acute Assessment and Plan: mild likely secondary to urinary tract infection continue to monitor (9) Neurogenic dysfunction of the urinary bladder: Code(s): N31.9 - Neuromuscular dysfunction of bladder, unspecified Status: Acute Assessment and Plan: patient self catheterizes Subjective Date/time seen: 10/10/21 12:24 No complaints Exam Narrative: patient is laying in a stretcher Const: General: comfortable, no acute distress, well developed, alert, awake and ill appearing chronically Nutritional Appearance: average body habitus Orientation/consciousness: patient oriented x3 Limitations: physical limitations Other: multiple toes amputation HENMT: Head: normal to inspection, normocephalic and atraumatic Ears: hearing grossly normal bilaterally Face and sinus: normal facial exam Eyes: General: appearance normal, both eyes and all related structures Pupils: Equal, round and reactive pupils present EOM: EOMs intact bilaterally Neck: Neck: full ROM, no lymphadenopathy and no JVD Thyroid: thyroid normal Lymphatic: no lymphadenopathy noted Resp: Effort & Inspection: normal respiratory effort and able to speak in complete sentences Auscultation: clear to auscultation bilaterally Cardio: Jugular venous distension: no JVD Rate: regular rate Rhythm: regular rhythm Heart sounds: S1 normal heart sound present and S2 normal heart sound present : General: Yes deferred Skin: Rashes: no rashes Wounds: no wounds Neuro: General: patient oriented x3, CN's II-XI intact bilaterally and Unable to assess gait Cranial nerves: Yes CN's II-XII intact bilaterally and Yes Equal, round and reactive pupils present Cognition (Neuro): normal cognition Speech: normal speech Gait exam (Neuro): Normal gait present and Unable to assess gait Motor exam (neuro): 5/5 motor strength present throughout Sensory Exam: No Sensory deficit (Neuro) Extrem: General: normal to inspection, full ROM, no joint enlargement, no pedal edema and other ( le
[2021-10-10 12:36] LABS: Creatine Kinase 43 U/L (30-135)
[2021-10-10 14:08] VITALS: BP 164/67; PULSE 80; RESP 18; TEMP 36.8; O2SAT 99
[2021-10-10 14:29] LABS: Creatinine Urine 39.2 mg/dL; Total Protein Urine Random 181 mg/dL; Ur Ttl Prot Creatinine Ratio 4.62 mg/mg (0-0.20); Urea Random Urine 86 MG/DL
[2021-10-10 14:50] LABS: Sodium Urine Random 33 meq/L
[2021-10-10] MEDS: SODIUM CHLORIDE 0.9% IV 1,000 ML 75 ML IV CONT (16:08)
[2021-10-10] MEDS: CENTRAL LINE FLUSH 10 ML IV PUSH ×2 (16:08→22:57)
[2021-10-10] MEDS: COLLAGENASE OINT 30 GM TUBE 1 APPLIC TOPICAL (16:09)
[2021-10-10 16:44] LABS: Glucose Point of Care 209 mg/dl (65-105)
--- NOTE | 2021-10-10 19:15 | PM.CNGS ---
Assessment and Plan Assessment and plan (1) Diabetic foot ulcer: Qualifiers: Diabetes mellitus type: type 2 Diabetic foot ulcer location: other Laterality: right Non-pressure ulcer stage: with bone involvement without evidence of necrosis Qualified Code(s): E11.621 - Type 2 diabetes mellitus with foot ulcer; L97.516 - 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 without evidence of necrosis Code(s): E11.621 - Type 2 diabetes mellitus with foot ulcer; L97.509 - Non-pressure chronic ulcer of other part of unspecified foot with unspecified severity Status: Acute Assessment and Plan: This is the main reason to consult us. Dr. Cuevas recently operated on the patient as far as I can tell from the medical notes we were only consulted to allow for follow-up. Nurse relates to me that patient has had dressing changes and I have reviewed what is ordered. Our wound ostomy nurses are following and will help with the dressing changes while she is here. However, the patient wishes to follow-up with her long-standing public health service officer and in fact they are working on planned subsequent debridement of the current wound on her left foot. ( if this is contemplated here remember that she is on Eliquis). Recommend patient follow-up was swiftly if possible upon discharge with her public health service officer. (2) Osteomyelitis: Qualifiers: Laterality: right Osteomyelitis location: foot Osteomyelitis type: unspecified type Qualified Code(s): M86.9 - Osteomyelitis, unspecified Code(s): M86.9 - Osteomyelitis, unspecified Status: Acute Assessment and Plan: This may have been taking care of with amputation however because of known osteomyelitis at that time the patient is continuing for 6 weeks of IV antibiotics through PICC line. However, it sounds as Dr. Street may want them to try to change antibiotics in view of her recent drop in kidney function. Vancomycin is unknown nephrotoxic agent. (3) Diabetic neuropathy: Code(s): E11.40 - Type 2 diabetes mellitus with diabetic neuropathy, unspecified Status: Acute Assessment and Plan: Patient has this apparently longstanding. Most likely contributed to the injuries and subsequent infection of her feet. She continues to follow closely with her public health service officer. (4) Neurogenic dysfunction of the urinary bladder: Code(s): N31.9 - Neuromuscular dysfunction of bladder, unspecified Status: Acute Assessment and Plan: Patient may be needs further instruction on cath care. She appears to have presented with a UTI. Will leave this up to the primary team. (5) Hypokalemia: Code(s): E87.6 - Hypokalemia Status: Acute Assessment and Plan: These were noted on outpatient labs that home health and drawn. She will continue to follow with hospitalists here and the transition back to care and monitoring by her PCP. (6) Anemia: Code(s): D64.9 - Anemia, unspecified Status: Acute Assessment and Plan: Not severe but she is on anticoagulation so this needs to be followed. This morning her hemoglobin was only 7.6 We will put in a CBC without for tomorrow a.m. to be sure this is monitored. (7) Paroxysmal atrial fibrillation: Code(s): I48.0 - Paroxysmal atrial fibrillation Status: Chronic Assessment and Plan: on Eliquis (8) Chronic kidney disease: Code(s): N18.9 - Chronic kidney disease, unspecified Status: Acute Assessment and Plan: See nephrology consultation. (9) Coronary artery disease: Qualifiers: Associated angina: without angina Coronary Disease-Associated Artery/Lesion type: unspecified vessel or lesion type [place] vs. transplanted heart: [place] heart Qualified Code(s): I25.10 - Atherosclerotic heart disease of [place] coronary artery without angina pectoris Code(s): I25.10 - Atherosclerotic heart disease of kenny
[2021-10-10 22:02] VITALS: BP 121/53; PULSE 88; RESP 20; TEMP 37; O2SAT 99
[2021-10-10 23:21] LABS: Glucose Point of Care 265 mg/dl (65-105)
[2021-10-11] MEDS: SODIUM CHLORIDE 0.9% IV 1,000 ML 75 ML IV CONT ×2 (05:32→21:57)
[2021-10-11 05:36] LABS: Hematocrit 25.2 % (37.0-47.0); Hemoglobin 7.8 g/dL (12.0-15.0); Mean Corpuscular Hemoglobin 27.1 pg (26-34); Mean Corpuscular Volume 87.5 fl (80-100); Mean Platelet Volume 10.2 fl (7.4-10.4); Platelet Count Result 343 k/mm3 (150-375); Red Blood Count 2.88 M/mm3 (4.2-5.4); Red Cell Distribution Width 15.5 % (11.5-14.5); White Blood Count 7.9 K/mm3 (4.5-10.0)
[2021-10-11 05:47] LABS: Albumin Level 2.8 g/dL (3.5-5.1); Anion Gap 7 mmol/L (8-16); Blood Urea Nitrogen 14 mg/dL (7-17); Carbon Dioxide 30 mmol/L (22-30); Chloride 100 mmol/L (98-107); Estimated CRCL calculation 26 ml/min; Estimated Glomerular Filt Rate 19; Glucose 159 mg/dL (65-110); Phosphorus 4.1 mg/dL (2.5-4.5); Potassium 3.4 mmol/L (3.4-5.0); Sodium 137 mmol/L (137-145)
[2021-10-11 06:25] VITALS: BP 159/69; PULSE 72; RESP 20; TEMP 36.7; O2SAT 99
[2021-10-11] MEDS: CENTRAL LINE FLUSH 10 ML IV PUSH ×3 (07:01→21:57)
[2021-10-11 08:05] LABS: Glucose Point of Care 125 mg/dl (65-105)
[2021-10-11] MEDS: FAMOTIDINE 20 MG TABLET 40 MG PO (09:26)
[2021-10-11] MEDS: APIXABAN 5 MG TABLET PO ×2 (09:26→21:56)
[2021-10-11] MEDS: FERROUS SULFATE 324 MG TABLET PO (09:26)
[2021-10-11] MEDS: cefTRIAXone 2 GM in SODIUM CHLORIDE 0.9% IV 100 ML 200 ML IVPB (09:26)
[2021-10-11] MEDS: COLLAGENASE OINT 30 GM TUBE 1 APPLIC TOPICAL (09:27)
--- NOTE | 2021-10-11 10:46 | PM.PNNEP ---
Progress Note: A&P Additional Plan 1. Kylie has chronic kidney disease. Her baseline creatinine is 1.4 and GFR is 38 consistent with stage III B chronic kidney disease. This is most likely due to diabetes and hypertension. 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 She has been following with Dr. White in the office. He was considering doing a renal biopsy at some point but the decision has not been made. 2. The patient has acute kidney injury. her creatinine is elevated but seems to be stable. Urinalysis shows pyuria plus hematuria. Urine culture was negative however she was on antibiotics at the time. CPK is normal. Fraction excretion of sodium is not pre renal however she was on diuretics before admission. Fractional excretion of urea is 34.5 which is barely pre renal. The patient could have dehydration. She was not eating and drinking as well as she normally does and also she was on furosemide. The patient could have a medication related issue. Consider changing antibiotics. Continue IV fluids. Check a renal panel in the morning 3. The patient has hypertension. She is currently on no antihypertensives. Her lisinopril was held, appropriately. Her blood pressure is somewhat generous. will keep an eye on this. 4. The patient has diabetes. He is on Accu-Cheks and insulin. This is being managed by the hospitalists. 5. The patient has pyuria. This is being covered by her antibiotics. She also intermittently straight cath so could have some colonization in the bladder as well. 6. The patient's sodium level is slightly low the. This might be due to her high sugar. Will follow this along. Subjective Date/time seen: 10/11/21 10:46 Interval history: Patient feels about the same. No chest pain or shortness of breath. No swelling no itching or rash. Review of Systems Cardiovascular: Cardiovascular: Reports no additional cardiovascular complaints Respiratory: Respiratory: Reports no additional respiratory complaints Gastrointestinal: Gastrointestinal: Reports no additional gastrointestinal complaints Genitourinary: Genitourinary: Reports no additional female genitourinary complaints Exam Narrative: WDWN in NAD skin no rash head ncat lungs clear cor reg no rub abd BS+ nontender and soft ext no edema. Bandage on right foot Objective Data Vital Signs Vital Signs: Vital Signs - 24 hr 10/10/21 14:08 10/10/21 22:02 10/11/21 06:25 Temperature 36.8 C 37.0 C 36.7 C Pulse Rate 80 88 72 Respiratory Rate 18 20 20 Blood Pressure 164/67 H 121/53 L 159/69 H Pulse Oximetry 99 99 99 Intake/Output Intake/Output: Intake & Output 10/08/21 10/09/21 10/10/21 10/11/21 23:59 23:59 23:59 23:59 Intake Total 1000 1240 Output Total 1400 800 Balance 1000 -1400 440 Meds/Results Medications: Active Medications Generic Name Dose Route Start Last Admin Trade Name Freq PRN Reason Stop Dose Admin Acetaminophen 650 mg 10/10/21 00:03 Acetaminophen 325 Mg Tablet PO Q4H PRN Mild Pain (1-3) Or Fever Apixaban 5 mg 10/10/21 09:00 10/11/21 09:26 Apixaban 5 Mg Tablet PO 5 mg Q12HR SELMA Administration Collagenase 1 applic 10/10/21 09:00 10/11/21 09:27 Collagenase Oint 30 Gm Tube TOPICAL 1 applic QAM SELMA Administration Famotidine 40 mg 10/10/21 09:00 10/11/21 09:26 Famotidine 20 Mg Tablet PO 40 mg DAILY SELMA Administration Ferrous Sulfate 324 mg 10/10/21 08:00 10/11/21 09:26 Ferrous Sulfate 324 Mg Tablet PO 324 mg DAILY@0800 SELMA Administration Ceftriaxone Sodium 2 gm/ 100 mls @ 200 mls/hr 10/11/21 09:00 10/11/21 09:26 Sodium Chloride IVPB 11/03/21 10:00 200 mls/hr DAILY SELMA Administration Vancomycin HCl 1,500 mg in 500 mls @ 333.333 mls/hr 10/10/21 09:00 10/10/21 10:15 Vancomycin 1,500 Mg/D5w 500 Ml IVPB 333.33 mls/hr Q36H SELMA Administration Sodium Chloride 1,000 mls @ 75 mls
[2021-10-11 11:55] LABS: Glucose Point of Care 146 mg/dl (65-105)
--- NOTE | 2021-10-11 12:35 | PM.IMPN ---
Progress Note: A&P Assessment and Plan (1) UTI (urinary tract infection): Qualifiers: Hematuria presence: with hematuria Urinary tract infection type: site unspecified Qualified Code(s): N39.0 - Urinary tract infection, site not specified; R31.9 - Hematuria, unspecified Code(s): N39.0 - Urinary tract infection, site not specified Status: Acute Assessment and Plan: cultures in progress patient is on ceftriaxone continue to monitor (2) Hypokalemia: Code(s): E87.6 - Hypokalemia Status: Acute Assessment and Plan: replace as needed (3) Acute kidney injury superimposed on chronic kidney disease: Code(s): N17.9 - Acute kidney failure, unspecified; N18.9 - Chronic kidney disease, unspecified Status: Acute Assessment and Plan: holding Lasix IV fluids Monitor creatinine. Creatinine is no better Differential does include AIN. Possibly from antibiotics. Discussed with Renal. Consult Nephrology Discussed with pharmacist. Will transition to a nasal lid and Rocephin and see if creatinine improves. (4) Type 2 diabetes mellitus, uncontrolled, with renal complications: Status: Acute Assessment and Plan: resume home meds continue to monitor (5) Diabetic neuropathy: Code(s): E11.40 - Type 2 diabetes mellitus with diabetic neuropathy, unspecified Status: Acute Assessment and Plan: unchanged (6) Chronic kidney disease: Code(s): N18.9 - Chronic kidney disease, unspecified Status: Acute Assessment and Plan: continue to monitor (7) Osteomyelitis: Qualifiers: Laterality: right Osteomyelitis location: foot Osteomyelitis type: unspecified type Qualified Code(s): M86.9 - Osteomyelitis, unspecified Code(s): M86.9 - Osteomyelitis, unspecified Status: Acute Assessment and Plan: PICC line in place continue vancomycin ceftriaxone (8) Leukocytosis (leucocytosis): Code(s): D72.829 - Elevated white blood cell count, unspecified Status: Acute Assessment and Plan: mild likely secondary to urinary tract infection continue to monitor (9) Neurogenic dysfunction of the urinary bladder: Code(s): N31.9 - Neuromuscular dysfunction of bladder, unspecified Status: Acute Assessment and Plan: patient self catheterizes Subjective Date/time seen: 10/11/21 12:35 No complaints creatinine no better Exam Narrative: patient is laying in a stretcher Const: General: comfortable, no acute distress, well developed, alert, awake and ill appearing chronically Nutritional Appearance: average body habitus Orientation/consciousness: patient oriented x3 Limitations: physical limitations Other: multiple toes amputation HENMT: Head: normal to inspection, normocephalic and atraumatic Ears: hearing grossly normal bilaterally Face and sinus: normal facial exam Eyes: General: appearance normal, both eyes and all related structures Pupils: Equal, round and reactive pupils present EOM: EOMs intact bilaterally Neck: Neck: full ROM, no lymphadenopathy and no JVD Thyroid: thyroid normal Lymphatic: no lymphadenopathy noted Resp: Effort & Inspection: normal respiratory effort and able to speak in complete sentences Auscultation: clear to auscultation bilaterally Cardio: Jugular venous distension: no JVD Rate: regular rate Rhythm: regular rhythm Heart sounds: S1 normal heart sound present and S2 normal heart sound present : General: Yes deferred Skin: Rashes: no rashes Wounds: no wounds Neuro: General: patient oriented x3, CN's II-XI intact bilaterally and Unable to assess gait Cranial nerves: Yes CN's II-XII intact bilaterally and Yes Equal, round and reactive pupils present Cognition (Neuro): normal cognition Speech: normal speech Gait exam (Neuro): Normal gait present and Unable to assess gait Motor exam (neuro): 5/5 motor strength present jaceu
[2021-10-11 15:56] VITALS: BP 146/65; PULSE 72; RESP 14; TEMP 35.7; O2SAT 99
[2021-10-11 17:37] LABS: Glucose Point of Care 228 mg/dl (65-105)
[2021-10-11 21:22] VITALS: O2SAT 98
[2021-10-11 21:54] VITALS: BP 145/68; PULSE 76; RESP 16; TEMP 36.4; O2SAT 99
[2021-10-11] MEDS: LINEZOLID 600 MG TABLET PO (21:56)
[2021-10-11] MEDS: INSULIN GLARGINE (*BKC) 100 UNITS/ML 32 UNITS SUB-Q (21:56)
[2021-10-11 22:03] LABS: Glucose Point of Care 264 mg/dl (65-105)
[2021-10-12 04:56] VITALS: BP 152/72; PULSE 72; RESP 14; TEMP 36.5; O2SAT 99
[2021-10-12 06:36] LABS: Estimated CRCL calculation 25 ml/min; Estimated Glomerular Filt Rate 18
[2021-10-12] MEDS: CENTRAL LINE FLUSH 10 ML IV PUSH ×2 (06:41→23:03)
[2021-10-12 07:30] LABS: Glucose Point of Care 105 mg/dl (65-105)
[2021-10-12 08:00] VITALS: O2SAT 99
[2021-10-12] MEDS: LINEZOLID 600 MG TABLET PO ×2 (09:12→23:00)
[2021-10-12] MEDS: APIXABAN 5 MG TABLET PO ×2 (09:12→23:00)
[2021-10-12] MEDS: cefTRIAXone 2 GM in SODIUM CHLORIDE 0.9% IV 100 ML 200 ML IVPB (09:13)
[2021-10-12] MEDS: FAMOTIDINE 20 MG TABLET 40 MG PO (09:13)
[2021-10-12] MEDS: FERROUS SULFATE 324 MG TABLET PO (09:13)
--- NOTE | 2021-10-12 09:19 | PM.PNNEP ---
Progress Note: A&P Additional Plan 1. Kylie has chronic kidney disease. Her baseline creatinine is 1.4 and GFR is 38 consistent with stage III B chronic kidney disease. This is most likely due to diabetes and hypertension. 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 She has been following with Dr. White in the office. He was considering doing a renal biopsy at some point but the decision has not been made. 2. The patient has acute kidney injury. her creatinine is elevated but seems to be stable. it was 2.1 on admission then yoel to 2.5 and stable since. Urinalysis shows pyuria plus hematuria. Urine culture was negative however she was on antibiotics at the time. CPK is normal. Fraction excretion of sodium is not pre renal however she was on diuretics before admission. Fractional excretion of urea is 34.5 which is barely pre renal. The patient could have had dehydration but she has gotten IVFs for the last 2 days without any improvement. The patient could have a medication related issue. allergy to ceftriaxone is possible. however no rash or eosinophilia. consider changing to a non pcn/ceph? toxicity from vanco possible and she has been changed to linezolid. it will take a while to get better if the latter. if we do a biopsy it is unlikely to show a GN and may show AIN but we can't use steroids or immunosuppressives due to foot wound anyway. we would just change atbs. if it shows infection (she has a pos urinalysis) we would just continue to treat. I ordered a renal scan yesterday which will be done tomorrow (isotope unavailable on weekends?) Continue IV fluids. Check a renal panel in the morning 3. The patient has hypertension. She is currently on no antihypertensives. Her lisinopril was held, appropriately. Her blood pressure is somewhat generous. will keep an eye on this. 4. The patient has diabetes. He is on Accu-Cheks and insulin. This is being managed by the hospitalists. 5. The patient has pyuria. This is being covered by her antibiotics. She also intermittently straight cath so could have some colonization in the bladder as well. 6. The patient's sodium level is slightly low the. This might be due to her high sugar. Will follow this along. Subjective Date/time seen: 10/12/21 09:19 Interval history: Patient feels about the same. no fevers. pt worried about her kidneys No swelling no itching or rash. Exam Narrative: WDWN in NAD skin no rash or sq noduls head ncat lungs clear bilaterally cor reg no rub or gallop abd BS+ nontender and soft ext no edema. Bandage on right foot Objective Data Vital Signs Vital Signs: Vital Signs - 24 hr 10/11/21 15:56 10/11/21 21:54 10/11/21 21:22 Temperature 35.7 C L 36.4 C L Pulse Rate 72 76 Respiratory Rate 14 16 Blood Pressure 146/65 H 145/68 H Pulse Oximetry 99 99 98 Oxygen Delivery Room Air 10/12/21 04:56 Temperature 36.5 C Pulse Rate 72 Respiratory Rate 14 Blood Pressure 152/72 H Pulse Oximetry 99 Oxygen Delivery Intake/Output Intake/Output: Intake & Output 10/09/21 10/10/21 10/11/21 10/12/21 23:59 23:59 23:59 23:59 Intake Total 1000 2820 400 Output Total 1400 1350 1400 Balance 1000 -1400 1470 -1000 Meds/Results Medications: Active Medications Generic Name Dose Route Start Last Admin Trade Name Freq PRN Reason Stop Dose Admin Acetaminophen 650 mg 10/10/21 00:03 Acetaminophen 325 Mg Tablet PO Q4H PRN Mild Pain (1-3) Or Fever Apixaban 5 mg 10/10/21 09:00 10/12/21 09:12 Apixaban 5 Mg Tablet PO 5 mg Q12HR SELMA Administration Collagenase 1 applic 10/10/21 09:00 10/11/21 09:27 Collagenase Oint 30 Gm Tube TOPICAL 1 applic QAM SELMA Administration Famotidine 40 mg 10/10/21 09:00 10/12/21 09:13 Famotidine 20 Mg Tablet PO 40 mg DAILY SELMA Administration Ferrous Sulfate 324 mg 10/10/21 08:00 10/12/21 09:
--- NOTE | 2021-10-12 10:32 | PM.IMPN ---
Progress Note: A&P Assessment and Plan (1) UTI (urinary tract infection): Qualifiers: Hematuria presence: with hematuria Urinary tract infection type: site unspecified Qualified Code(s): N39.0 - Urinary tract infection, site not specified; R31.9 - Hematuria, unspecified Code(s): N39.0 - Urinary tract infection, site not specified Status: Acute Assessment and Plan: cultures in progress patient is on ceftriaxone continue to monitor (2) Hypokalemia: Code(s): E87.6 - Hypokalemia Status: Acute Assessment and Plan: replace as needed (3) Acute kidney injury superimposed on chronic kidney disease: Code(s): N17.9 - Acute kidney failure, unspecified; N18.9 - Chronic kidney disease, unspecified Status: Acute Assessment and Plan: holding Lasix IV fluids Monitor creatinine. Creatinine is no better Differential does include AIN. Possibly from antibiotics. Discussed with Renal. Consult Nephrology Discussed with pharmacist. Will transition to a linezolid and Rocephin and see if creatinine improves. (4) Type 2 diabetes mellitus, uncontrolled, with renal complications: Status: Acute Assessment and Plan: resume home meds continue to monitor (5) Diabetic neuropathy: Code(s): E11.40 - Type 2 diabetes mellitus with diabetic neuropathy, unspecified Status: Acute Assessment and Plan: unchanged (6) Chronic kidney disease: Code(s): N18.9 - Chronic kidney disease, unspecified Status: Acute Assessment and Plan: continue to monitor (7) Osteomyelitis: Qualifiers: Laterality: right Osteomyelitis location: foot Osteomyelitis type: unspecified type Qualified Code(s): M86.9 - Osteomyelitis, unspecified Code(s): M86.9 - Osteomyelitis, unspecified Status: Acute Assessment and Plan: PICC line in place continue vancomycin ceftriaxone (8) Leukocytosis (leucocytosis): Code(s): D72.829 - Elevated white blood cell count, unspecified Status: Acute Assessment and Plan: mild likely secondary to urinary tract infection continue to monitor (9) Neurogenic dysfunction of the urinary bladder: Code(s): N31.9 - Neuromuscular dysfunction of bladder, unspecified Status: Acute Assessment and Plan: patient self catheterizes Subjective Date/time seen: 10/12/21 10:32 No complaints Exam Narrative: patient is laying in a stretcher Const: General: comfortable, no acute distress, well developed, alert, awake and ill appearing chronically Nutritional Appearance: average body habitus Orientation/consciousness: patient oriented x3 Limitations: physical limitations Other: multiple toes amputation HENMT: Head: normal to inspection, normocephalic and atraumatic Ears: hearing grossly normal bilaterally Face and sinus: normal facial exam Eyes: General: appearance normal, both eyes and all related structures Pupils: Equal, round and reactive pupils present EOM: EOMs intact bilaterally Neck: Neck: full ROM, no lymphadenopathy and no JVD Thyroid: thyroid normal Lymphatic: no lymphadenopathy noted Resp: Effort & Inspection: normal respiratory effort and able to speak in complete sentences Auscultation: clear to auscultation bilaterally Cardio: Jugular venous distension: no JVD Rate: regular rate Rhythm: regular rhythm Heart sounds: S1 normal heart sound present and S2 normal heart sound present : General: Yes deferred Skin: Rashes: no rashes Wounds: no wounds Neuro: General: patient oriented x3, CN's II-XI intact bilaterally and Unable to assess gait Cranial nerves: Yes CN's II-XII intact bilaterally and Yes Equal, round and reactive pupils present Cognition (Neuro): normal cognition Speech: normal speech Gait exam (Neuro): Normal gait present and Unable to assess gait Motor exam (neuro): 5/5 motor strength present throughout Sensory Exam:
[2021-10-12 11:56] LABS: Glucose Point of Care 192 mg/dl (65-105)
[2021-10-12] MEDS: COLLAGENASE OINT 30 GM TUBE 1 APPLIC TOPICAL (15:30)
[2021-10-12 15:53] VITALS: BP 168/72; PULSE 73; RESP 14; TEMP 36.6; O2SAT 99
[2021-10-12 16:51] LABS: Glucose Point of Care 148 mg/dl (65-105)
[2021-10-12] MEDS: SODIUM CHLORIDE 0.9% IV 1,000 ML 75 ML IV CONT ×2 (17:42→23:20)
[2021-10-12 21:44] VITALS: BP 141/66; PULSE 85; RESP 18; TEMP 36.4; O2SAT 98
[2021-10-12 22:49] LABS: Glucose Point of Care 129 mg/dl (65-105)
[2021-10-12] MEDS: INSULIN GLARGINE (*BKC) 100 UNITS/ML 32 UNITS SUB-Q (23:00)
[2021-10-12] MEDS: ONDANSETRON INJ 4 MG/2 ML VIAL IV PUSH (23:00)
[2021-10-13] VITALS (8 sets, daily range): BP systolic 141–157; BP diastolic 66–84; PULSE 72–86; RESP 16–18; TEMP 36.8–37.9; O2SAT 91–97
[2021-10-13] MEDS: CENTRAL LINE FLUSH 10 ML IV PUSH ×3 (05:19→21:13)
[2021-10-13 07:46] LABS: Glucose Point of Care 69 mg/dl (65-105)
[2021-10-13 08:09] LABS: Glucose Point of Care 76 mg/dl (65-105)
[2021-10-13] MEDS: cefTRIAXone 2 GM in SODIUM CHLORIDE 0.9% IV 100 ML 200 ML IVPB (09:09)
[2021-10-13] MEDS: APIXABAN 5 MG TABLET PO ×2 (09:10→21:12)
[2021-10-13] MEDS: FAMOTIDINE 20 MG TABLET 40 MG PO (09:10)
[2021-10-13] MEDS: FERROUS SULFATE 324 MG TABLET PO (09:10)
[2021-10-13] MEDS: LINEZOLID 600 MG TABLET PO ×2 (09:10→21:12)
[2021-10-13] MEDS: COLLAGENASE OINT 30 GM TUBE 1 APPLIC TOPICAL (09:10)
--- NOTE | 2021-10-13 09:22 | PM.PNNEP ---
Progress Note: A&P Additional Plan 1. Kylie has chronic kidney disease. Her baseline creatinine is 1.4 and GFR is 38 consistent with stage III B chronic kidney disease. This is most likely due to diabetes and hypertension. 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 She has been following with Dr. White in the office. He was considering doing a renal biopsy at some point but the decision has not been made. 2. The patient has acute kidney injury. her creatinine is elevated but seems to be stable. it was 2.1 on admission then yoel to 2.5 and stable since. Today's is pending. Urinalysis shows pyuria plus hematuria. Urine culture was negative however she was on antibiotics at the time. CT scan did show some perinephric stranding. this may be slowly resolving SHREYA from pyelonephritis. The pyelonephritis developed while she was already on ceftriaxone and vancomycin. Now on ceftriaxone and linezolid. CPK is normal. Fraction excretion of sodium is not pre renal however she was on diuretics before admission. Fractional excretion of urea is 34.5 which is barely pre renal. The patient could have had dehydration but she has gotten IVFs for the last 2 days without any improvement. the patient may have pyelonephritis. Urine cultures are negative because she was on IV antibiotics before. We already changed from vancomycin to linezolid. I ordered a renal scan Wednesday and will be done today. Continue IV fluids. Check a renal scan. 3. The patient has hypertension. She is currently on no antihypertensives. Her lisinopril was held, appropriately. Her blood pressure is somewhat generous. will keep an eye on this. 4. The patient has diabetes. He is on Accu-Cheks and insulin. This is being managed by the hospitalists. 5. The patient has pyuria. This is being covered by her antibiotics. She also intermittently straight cath so could have some colonization in the bladder as well. 6. The patient's sodium level is slightly low the. This might be due to her high sugar. Will follow this along. Subjective Date/time seen: 10/13/21 09:22 Interval history: Patient feels about the same. No chest pain or shortness of breath. No rash, itching, or fevers. Exam Narrative: WDWN in NAD skin no rash or sq noduls head ncat lungs clear bilaterally cor reg no rub or gallop abd BS+ nontender and soft ext no edema. Bandage on right foot Objective Data Vital Signs Vital Signs: Vital Signs - 24 hr 10/12/21 15:53 10/12/21 21:44 10/13/21 05:32 Temperature 36.6 C 36.4 C L 36.8 C Pulse Rate 73 85 79 Respiratory Rate 14 18 16 Blood Pressure 168/72 H 141/66 H 156/74 H Pulse Oximetry 99 98 97 Intake/Output Intake/Output: Intake & Output 10/10/21 10/11/21 10/12/21 10/13/21 23:59 23:59 23:59 23:59 Intake Total 2820 3710 450 Output Total 1400 1350 3200 Balance -1400 1470 510 450 Meds/Results Medications: Active Medications Generic Name Dose Route Start Last Admin Trade Name Freq PRN Reason Stop Dose Admin Acetaminophen 650 mg 10/10/21 00:03 Acetaminophen 325 Mg Tablet PO Q4H PRN Mild Pain (1-3) Or Fever Apixaban 5 mg 10/10/21 09:00 10/13/21 09:10 Apixaban 5 Mg Tablet PO 5 mg Q12HR SELMA Administration Collagenase 1 applic 10/10/21 09:00 10/13/21 09:10 Collagenase Oint 30 Gm Tube TOPICAL 1 applic QAM SELMA Administration Famotidine 40 mg 10/10/21 09:00 10/13/21 09:10 Famotidine 20 Mg Tablet PO 40 mg DAILY SELMA Administration Ferrous Sulfate 324 mg 10/10/21 08:00 10/13/21 09:10 Ferrous Sulfate 324 Mg Tablet PO 324 mg DAILY@0800 SELMA Administration Ceftriaxone Sodium 2 gm/ 100 mls @ 200 mls/hr 10/11/21 09:00 10/13/21 09:09 Sodium Chloride IVPB 11/03/21 10:00 200 mls/hr DAILY SELMA Administration Sodium Chloride 1,000 mls @ 75 mls/hr 10/10/21 11:25 10/12/21 23:20 Normal Saline Iv IV CONT 75 m
[2021-10-13 09:37] LABS: Anion Gap 7 mmol/L (8-16); Blood Urea Nitrogen 11 mg/dL (7-17); Calcium 7.6 mg/dL (8.4-10.2); Carbon Dioxide 28 mmol/L (22-30); Chloride 103 mmol/L (98-107); Estimated CRCL calculation 27 ml/min; Estimated Glomerular Filt Rate 20; Glucose 101 mg/dL (65-110); Potassium 3.2 mmol/L (3.4-5.0); Sodium 138 mmol/L (137-145)
[2021-10-13 11:46] LABS: Glucose Point of Care 152 mg/dl (65-105)
--- NOTE | 2021-10-13 12:38 | PM.IMPN ---
Progress Note: A&P Assessment and Plan (1) UTI (urinary tract infection): Qualifiers: Hematuria presence: with hematuria Urinary tract infection type: site unspecified Qualified Code(s): N39.0 - Urinary tract infection, site not specified; R31.9 - Hematuria, unspecified Code(s): N39.0 - Urinary tract infection, site not specified Status: Acute Assessment and Plan: cultures in progress patient is on ceftriaxone continue to monitor (2) Hypokalemia: Code(s): E87.6 - Hypokalemia Status: Acute Assessment and Plan: replace as needed (3) Acute kidney injury superimposed on chronic kidney disease: Code(s): N17.9 - Acute kidney failure, unspecified; N18.9 - Chronic kidney disease, unspecified Status: Acute Assessment and Plan: holding Lasix IV fluids Monitor creatinine. Creatinine is no better Differential does include AIN. Possibly from antibiotics. Discussed with Renal. Consult Nephrology Discussed with pharmacist. Will transition to a linezolid and Rocephin and see if creatinine improves. Renal scan ordered by Nephrology. (4) Type 2 diabetes mellitus, uncontrolled, with renal complications: Status: Acute Assessment and Plan: resume home meds continue to monitor (5) Diabetic neuropathy: Code(s): E11.40 - Type 2 diabetes mellitus with diabetic neuropathy, unspecified Status: Acute Assessment and Plan: unchanged (6) Chronic kidney disease: Code(s): N18.9 - Chronic kidney disease, unspecified Status: Acute Assessment and Plan: continue to monitor (7) Osteomyelitis: Qualifiers: Laterality: right Osteomyelitis location: foot Osteomyelitis type: unspecified type Qualified Code(s): M86.9 - Osteomyelitis, unspecified Code(s): M86.9 - Osteomyelitis, unspecified Status: Acute Assessment and Plan: PICC line in place continue vancomycin ceftriaxone (8) Leukocytosis (leucocytosis): Code(s): D72.829 - Elevated white blood cell count, unspecified Status: Acute Assessment and Plan: mild likely secondary to urinary tract infection continue to monitor (9) Neurogenic dysfunction of the urinary bladder: Code(s): N31.9 - Neuromuscular dysfunction of bladder, unspecified Status: Acute Assessment and Plan: patient self catheterizes Subjective Date/time seen: 10/13/21 12:38 No new complaints Exam Narrative: patient is laying in a stretcher Const: General: comfortable, no acute distress, well developed, alert, awake and ill appearing chronically Nutritional Appearance: average body habitus Orientation/consciousness: patient oriented x3 Limitations: physical limitations Other: multiple toes amputation HENMT: Head: normal to inspection, normocephalic and atraumatic Ears: hearing grossly normal bilaterally Face and sinus: normal facial exam Eyes: General: appearance normal, both eyes and all related structures Pupils: Equal, round and reactive pupils present EOM: EOMs intact bilaterally Neck: Neck: full ROM, no lymphadenopathy and no JVD Thyroid: thyroid normal Lymphatic: no lymphadenopathy noted Resp: Effort & Inspection: normal respiratory effort and able to speak in complete sentences Auscultation: clear to auscultation bilaterally Cardio: Jugular venous distension: no JVD Rate: regular rate Rhythm: regular rhythm Heart sounds: S1 normal heart sound present and S2 normal heart sound present : General: Yes deferred Skin: Rashes: no rashes Wounds: no wounds Neuro: General: patient oriented x3, CN's II-XI intact bilaterally and Unable to assess gait Cranial nerves: Yes CN's II-XII intact bilaterally and Yes Equal, round and reactive pupils present Cognition (Neuro): normal cognition Speech: normal speech Gait exam (Neuro): Normal gait present and Unable to assess gait Motor exam (neuro): 5/5 motor stre
[2021-10-13] MEDS: SODIUM CHLORIDE 0.9% IV 1,000 ML 75 ML IV CONT (13:33)
[2021-10-13] MEDS: ONDANSETRON INJ 4 MG/2 ML VIAL IV PUSH (15:38)
[2021-10-13] MEDS: ACETAMINOPHEN 325 MG TABLET 650 MG PO (15:38)
[2021-10-13 16:40] LABS: Glucose Point of Care 127 mg/dl (65-105)
[2021-10-13 20:59] LABS: Glucose Point of Care 114 mg/dl (65-105)
[2021-10-13] MEDS: INSULIN GLARGINE (*BKC) 100 UNITS/ML 32 UNITS SUB-Q (21:13)
[2021-10-14] MEDS: ONDANSETRON INJ 4 MG/2 ML VIAL IV PUSH ×3 (00:26→17:15)
[2021-10-14] MEDS: SODIUM CHLORIDE 0.9% IV 1,000 ML 75 ML IV CONT ×2 (03:32→17:15)
[2021-10-14 04:57] VITALS: BP 167/69; PULSE 69; RESP 18; TEMP 36.6; O2SAT 97
[2021-10-14] MEDS: CENTRAL LINE FLUSH 10 ML IV PUSH ×3 (06:06→20:51)
[2021-10-14 06:43] LABS: Hematocrit 26.7 % (37.0-47.0); Hemoglobin 8.4 g/dL (12.0-15.0); Mean Corpuscular HGB Conc 31.5 g/dl (32-36); Mean Corpuscular Hemoglobin 27.8 pg (26-34); Mean Corpuscular Volume 88.4 fl (80-100); Mean Platelet Volume 10.1 fl (7.4-10.4); Platelet Count Result 339 k/mm3 (150-375); Red Blood Count 3.02 M/mm3 (4.2-5.4); Red Cell Distribution Width 15.6 % (11.5-14.5); White Blood Count 11.2 K/mm3 (4.5-10.0)
[2021-10-14 07:00] LABS: Albumin Level 2.9 g/dL (3.5-5.1); Anion Gap 10 mmol/L (8-16); Blood Urea Nitrogen 12 mg/dL (7-17); Calcium 7.6 mg/dL (8.4-10.2); Carbon Dioxide 26 mmol/L (22-30); Chloride 103 mmol/L (98-107); Estimated CRCL calculation 26 ml/min; Estimated Glomerular Filt Rate 19; Glucose 79 mg/dL (65-110); Phosphorus 3.6 mg/dL (2.5-4.5); Potassium 2.7 mmol/L (3.4-5.0); Sodium 139 mmol/L (137-145)
[2021-10-14 08:12] LABS: Glucose Point of Care 66 mg/dl (65-105)
[2021-10-14] MEDS: POTASSIUM CHLORIDE 20 MEQ TABLET 40 MEQ PO (08:41)
[2021-10-14] MEDS: APIXABAN 5 MG TABLET PO ×2 (08:42→20:48)
[2021-10-14] MEDS: FERROUS SULFATE 324 MG TABLET PO (08:42)
[2021-10-14] MEDS: FAMOTIDINE 20 MG TABLET 40 MG PO (08:42)
[2021-10-14] MEDS: COLLAGENASE OINT 30 GM TUBE 1 APPLIC TOPICAL (08:43)
[2021-10-14 08:53] LABS: Glucose Point of Care 91 mg/dl (65-105)
[2021-10-14 10:07] VITALS: PULSE 83; O2SAT 94
[2021-10-14] MEDS: LINEZOLID 600 MG TABLET PO ×2 (10:19→20:48)
[2021-10-14 12:22] LABS: Glucose Point of Care 106 mg/dl (65-105)
--- NOTE | 2021-10-14 12:24 | PM.IMPN ---
Progress Note: A&P Assessment and Plan (1) UTI (urinary tract infection): Qualifiers: Hematuria presence: with hematuria Urinary tract infection type: site unspecified Qualified Code(s): N39.0 - Urinary tract infection, site not specified; R31.9 - Hematuria, unspecified Code(s): N39.0 - Urinary tract infection, site not specified Status: Acute Assessment and Plan: cultures in progress patient is on ceftriaxone continue to monitor (2) Hypokalemia: Code(s): E87.6 - Hypokalemia Status: Acute Assessment and Plan: replace as needed (3) Acute kidney injury superimposed on chronic kidney disease: Code(s): N17.9 - Acute kidney failure, unspecified; N18.9 - Chronic kidney disease, unspecified Status: Acute Assessment and Plan: holding Lasix IV fluids Monitor creatinine. Creatinine is no better Differential does include AIN. Possibly from antibiotics. Discussed with Renal. Consult Nephrology Discussed with pharmacist. Switched from vanc to linezolid all 10/12. No improvement kidney function. Question kidney injury etiology. Appreciate Nephrology input. Concern for long-term exposure to lead nasal lid. If this is not related to antibiotic exposure or AIN, recommend switching back to vanc and Rocephin on discharge. Renal scan ordered by Nephrology. Question need for biopsy. Will defer to Nephrology (4) Type 2 diabetes mellitus, uncontrolled, with renal complications: Status: Acute Assessment and Plan: resume home meds continue to monitor (5) Diabetic neuropathy: Code(s): E11.40 - Type 2 diabetes mellitus with diabetic neuropathy, unspecified Status: Acute Assessment and Plan: unchanged (6) Chronic kidney disease: Code(s): N18.9 - Chronic kidney disease, unspecified Status: Acute Assessment and Plan: continue to monitor (7) Osteomyelitis: Qualifiers: Laterality: right Osteomyelitis location: foot Osteomyelitis type: unspecified type Qualified Code(s): M86.9 - Osteomyelitis, unspecified Code(s): M86.9 - Osteomyelitis, unspecified Status: Acute Assessment and Plan: PICC line in place continue vancomycin ceftriaxone (8) Leukocytosis (leucocytosis): Code(s): D72.829 - Elevated white blood cell count, unspecified Status: Acute Assessment and Plan: mild likely secondary to urinary tract infection continue to monitor (9) Neurogenic dysfunction of the urinary bladder: Code(s): N31.9 - Neuromuscular dysfunction of bladder, unspecified Status: Acute Assessment and Plan: patient self catheterizes Subjective Date/time seen: 10/14/21 12:24 No complaints Exam Narrative: patient is laying in a stretcher Const: General: comfortable, no acute distress, well developed, alert, awake and ill appearing chronically Nutritional Appearance: average body habitus Orientation/consciousness: patient oriented x3 Limitations: physical limitations Other: multiple toes amputation HENMT: Head: normal to inspection, normocephalic and atraumatic Ears: hearing grossly normal bilaterally Face and sinus: normal facial exam Eyes: General: appearance normal, both eyes and all related structures Pupils: Equal, round and reactive pupils present EOM: EOMs intact bilaterally Neck: Neck: full ROM, no lymphadenopathy and no JVD Thyroid: thyroid normal Lymphatic: no lymphadenopathy noted Resp: Effort & Inspection: normal respiratory effort and able to speak in complete sentences Auscultation: clear to auscultation bilaterally Cardio: Jugular venous distension: no JVD Rate: regular rate Rhythm: regular rhythm Heart sounds: S1 normal heart sound present and S2 normal heart sound present : General: Yes deferred Skin: Rashes: no rashes Wounds: no wounds Neuro: General: patient oriented x3, CN's II-XI intact bilaterally and Unable t
[2021-10-14] MEDS: cefTRIAXone 2 GM in SODIUM CHLORIDE 0.9% IV 100 ML 200 ML IVPB (12:49)
[2021-10-14] MEDS: POTASSIUM CHLORIDE 20 MEQ TABLET PO (12:49)
[2021-10-14 14:00] VITALS: BP 149/86; PULSE 78; RESP 16; TEMP 36.4; O2SAT 98
[2021-10-14 16:32] LABS: Glucose Point of Care 133 mg/dl (65-105)
[2021-10-14 19:39] VITALS: BP 170/79; PULSE 80; RESP 18; TEMP 36.9; O2SAT 96
[2021-10-14 20:00] VITALS: PULSE 80; RESP 18; O2SAT 96
[2021-10-14] MEDS: INSULIN GLARGINE (*BKC) 100 UNITS/ML 25 UNITS SUB-Q (20:51)
[2021-10-14 20:55] LABS: Glucose Point of Care 134 mg/dl (65-105)
[2021-10-15] MEDS: CENTRAL LINE FLUSH 10 ML IV PUSH ×3 (05:46→20:33)
[2021-10-15] MEDS: SODIUM CHLORIDE 0.9% IV 1,000 ML 75 ML IV CONT (05:55)
[2021-10-15 06:00] VITALS: BP 168/80; PULSE 83; RESP 18; TEMP 36.7; O2SAT 98
[2021-10-15 06:46] LABS: Anion Gap 10 mmol/L (8-16); Blood Urea Nitrogen 12 mg/dL (7-17); Calcium 7.6 mg/dL (8.4-10.2); Carbon Dioxide 22 mmol/L (22-30); Chloride 103 mmol/L (98-107); Estimated CRCL calculation 26 ml/min; Estimated Glomerular Filt Rate 19; Glucose 71 mg/dL (65-110); Potassium 2.7 mmol/L (3.4-5.0); Sodium 135 mmol/L (137-145)
[2021-10-15] MEDS: POTASSIUM CHLORIDE 20 MEQ TABLET 40 MEQ PO (07:47)
[2021-10-15] MEDS: POTASSIUM CHLORIDE 20 MEQ TABLET PO (07:47)
[2021-10-15] MEDS: APIXABAN 5 MG TABLET PO ×2 (08:17→20:24)
[2021-10-15] MEDS: LINEZOLID 600 MG TABLET PO ×2 (08:17→20:32)
[2021-10-15] MEDS: FAMOTIDINE 20 MG TABLET 40 MG PO (08:17)
[2021-10-15] MEDS: FERROUS SULFATE 324 MG TABLET PO (08:17)
[2021-10-15] MEDS: cefTRIAXone 2 GM in SODIUM CHLORIDE 0.9% IV 100 ML 200 ML IVPB (08:17)
[2021-10-15] MEDS: COLLAGENASE OINT 30 GM TUBE 1 APPLIC TOPICAL (08:21)
[2021-10-15 08:24] LABS: Magnesium 1.7 mg/dL (1.6-2.3)
[2021-10-15 08:27] LABS: Glucose Point of Care 67 mg/dl (65-105)
[2021-10-15 08:50] LABS: Glucose Point of Care 75 mg/dl (65-105)
[2021-10-15 12:52] LABS: Glucose Point of Care 122 mg/dl (65-105)
[2021-10-15 13:51] LABS: Potassium 3.6 mmol/L (3.4-5.0)
[2021-10-15 14:00] VITALS: BP 136/71; PULSE 93; RESP 16; TEMP 36.2; O2SAT 94
[2021-10-15 17:42] LABS: Glucose Point of Care 155 mg/dl (65-105)
--- NOTE | 2021-10-15 18:38 | PM.IMPN ---
Progress Note: A&P Assessment and Plan (1) UTI (urinary tract infection): Qualifiers: Hematuria presence: with hematuria Urinary tract infection type: site unspecified Qualified Code(s): N39.0 - Urinary tract infection, site not specified; R31.9 - Hematuria, unspecified Code(s): N39.0 - Urinary tract infection, site not specified Status: Acute Assessment and Plan: Urine culture came back negative for infection, Rocephin discontinued (2) Hypokalemia: Code(s): E87.6 - Hypokalemia Status: Acute Assessment and Plan: replace as needed (3) Acute kidney injury superimposed on chronic kidney disease: Code(s): N17.9 - Acute kidney failure, unspecified; N18.9 - Chronic kidney disease, unspecified Status: Acute Assessment and Plan: holding Lasix IV fluids Monitor creatinine. Creatinine is no better Differential does include AIN. Possibly from antibiotics. Discussed with Renal. Consult Nephrology Discussed with pharmacist. Switched from vanc to linezolid all 10/12. No improvement kidney function. Question kidney injury etiology. Appreciate Nephrology input. Concern for long-term exposure to linezolid. If this is not related to antibiotic exposure or AIN, recommend switching back to vanc and Rocephin on discharge. Renal scan ordered by Nephrology. Question need for biopsy. Will defer to Nephrology (4) Type 2 diabetes mellitus, uncontrolled, with renal complications: Status: Acute Assessment and Plan: resume home meds continue to monitor (5) Diabetic neuropathy: Code(s): E11.40 - Type 2 diabetes mellitus with diabetic neuropathy, unspecified Status: Acute Assessment and Plan: unchanged (6) Chronic kidney disease: Code(s): N18.9 - Chronic kidney disease, unspecified Status: Acute Assessment and Plan: continue to monitor (7) Osteomyelitis: Qualifiers: Laterality: right Osteomyelitis location: foot Osteomyelitis type: unspecified type Qualified Code(s): M86.9 - Osteomyelitis, unspecified Code(s): M86.9 - Osteomyelitis, unspecified Status: Acute Assessment and Plan: PICC line in place continue vancomycin (8) Leukocytosis (leucocytosis): Code(s): D72.829 - Elevated white blood cell count, unspecified Status: Acute Assessment and Plan: Resolving (9) Neurogenic dysfunction of the urinary bladder: Code(s): N31.9 - Neuromuscular dysfunction of bladder, unspecified Status: Acute Assessment and Plan: patient self catheterizes Subjective Date/time seen: 10/15/21 18:38 Interval history: Sitting up in bed, watching TV, no complaints. No overnight events noted. No chest pain or shortness of breath. No nausea, vomiting. No fevers or chills. Patient reports that she had a lot of apple juice and then she has experienced some diarrhea. Review of Systems Review of Systems: 12 point review of systems was assessed and was negative except as noted in the HPI Exam Narrative: General: No acute distress, alert and oriented per baseline HEENT: Atraumatic, normocephalic, mucous membranes moist CV: Regular rate and rhythm, S1, S2 Lungs: Clear to auscultation bilaterally, no rales or crackles noted, no wheezes, good air entry Abdomen: Soft, nontender, nondistended Extremities: Normal to inspection Skin: No rashes noted, no lesions or wounds seen Psych: Euthymic, normal affect Objective Data Vital Signs Vital Signs: Vital Signs - 24 hr 10/14/21 19:39 10/14/21 20:00 10/15/21 06:00 Temperature 98.4 F 98.1 F Pulse Rate 80 80 83 Respiratory Rate 18 18 18 Blood Pressure 170/79 H 168/80 H Pulse Oximetry 96 96 98 Oxygen Delivery Room Air 10/15/21 14:00 Temperature 97.2 F L Pulse Rate 93 Respiratory Rate 16 Blood Pressure 136/71 Pulse Oximetry 94 Oxygen Delivery Intake/Output Intake/Output: Intake &
[2021-10-15] MEDS: LOPERAMIDE HCL 2 MG CAPSULE 4 MG PO (20:24)
[2021-10-15] MEDS: INSULIN GLARGINE (*BKC) 100 UNITS/ML 25 UNITS SUB-Q (20:28)
[2021-10-15 20:40] LABS: Glucose Point of Care 186 mg/dl (65-105)
[2021-10-15 22:00] VITALS: BP 156/82; PULSE 83; RESP 18; TEMP 36.7; O2SAT 95
[2021-10-16 06:00] VITALS: BP 148/70; PULSE 78; RESP 16; TEMP 36.8; O2SAT 96
[2021-10-16] MEDS: CENTRAL LINE FLUSH 10 ML IV PUSH ×3 (06:47→20:40)
[2021-10-16 08:35] LABS: Glucose Point of Care 54 mg/dl (65-105)
[2021-10-16 09:11] LABS: Glucose Point of Care 87 mg/dl (65-105)
[2021-10-16] MEDS: FAMOTIDINE 20 MG TABLET 40 MG PO (09:38)
[2021-10-16] MEDS: FERROUS SULFATE 324 MG TABLET PO (09:38)
[2021-10-16] MEDS: APIXABAN 5 MG TABLET PO ×2 (09:38→20:34)
[2021-10-16] MEDS: LINEZOLID 600 MG TABLET PO ×2 (09:39→20:33)
[2021-10-16] MEDS: COLLAGENASE OINT 30 GM TUBE 1 APPLIC TOPICAL (09:39)
[2021-10-16] MEDS: cefTRIAXone 2 GM in SODIUM CHLORIDE 0.9% IV 100 ML IVPB (09:39)
[2021-10-16] MEDS: SODIUM CHLORIDE 0.9% IV 1,000 ML 75 ML IV CONT ×2 (09:42→23:51)
[2021-10-16 10:26] LABS: Anion Gap 8 mmol/L (8-16); Blood Urea Nitrogen 13 mg/dL (7-17); Calcium 7.3 mg/dL (8.4-10.2); Carbon Dioxide 23 mmol/L (22-30); Chloride 105 mmol/L (98-107); Estimated CRCL calculation 27 ml/min; Estimated Glomerular Filt Rate 20; Glucose 91 mg/dL (65-110); Potassium 4.3 mmol/L (3.4-5.0); Sodium 136 mmol/L (137-145)
[2021-10-16 11:30] LABS: Magnesium 1.7 mg/dL (1.6-2.3)
[2021-10-16 12:24] LABS: Glucose Point of Care 78 mg/dl (65-105)
--- NOTE | 2021-10-16 13:05 | PM.PNNEP ---
Progress Note: A&P Additional Plan 1. Kylie has chronic kidney disease. Her baseline creatinine is 1.4 and GFR is 38 consistent with stage III B chronic kidney disease. This is most likely due to diabetes and hypertension. 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 She has been following with Dr. White in the office. He was considering doing a renal biopsy at some point but the decision has not been made. 2. The patient has acute kidney injury. CK is normal. Fraction excretion of sodium is not pre renal however she was on diuretics before admission. Fractional excretion of urea is 34.5 which is barely pre renal. her creatinine is elevated but seems to be stable. it was 2.1 on admission then yoel to 2.5 and stable since. the value was 2.4 today. the patient may have pyelonephritis. Urine cultures are negative because she was on IV antibiotics before. We already changed from vancomycin to linezolid. I ordered a renal scan wednesday . Still not done. Will reorder. Continue IV fluids. 3. The patient has hypertension. She is currently on no antihypertensives. Her lisinopril was held, appropriately. Her blood pressure is somewhat generous. will keep an eye on this. 4. The patient has diabetes. He is on Accu-Cheks and insulin. This is being managed by the hospitalists. 5. The patient has pyuria. This is being covered by her antibiotics. She also intermittently straight cath so could have some colonization in the bladder as well. 6. The patient's sodium level is slightly low the. This might be due to her high sugar. Will follow this along. Subjective Date/time seen: 10/16/21 13:05 Interval history: Patient feels about the same. No chest pain or shortness of breath. Lying in bed comfortably. Exam Narrative: WDWN in NAD skin no rash or sq noduls head ncat lungs clear to auscultation cor reg no rub or gallop abd BS+ nontender and soft ext no edema or cyanosis.. Bandage on right foot Objective Data Vital Signs Vital Signs: Vital Signs - 24 hr 10/15/21 14:00 10/15/21 22:00 10/16/21 06:00 Temperature 36.2 C L 36.7 C 36.8 C Pulse Rate 93 83 78 Respiratory Rate 16 18 16 Blood Pressure 136/71 156/82 H 148/70 H Pulse Oximetry 94 95 96 Intake/Output Intake/Output: Intake & Output 10/13/21 10/14/21 10/15/21 10/16/21 23:59 23:59 23:59 23:59 Intake Total 2780 3450 3330 0 Output Total 900 1975 450 Balance 1880 1475 2880 0 Meds/Results Medications: Active Medications Generic Name Dose Route Start Last Admin Trade Name Freq PRN Reason Stop Dose Admin Acetaminophen 650 mg 10/10/21 00:03 10/13/21 15:38 Acetaminophen 325 Mg Tablet PO 650 mg Q4H PRN Administration Mild Pain (1-3) Or Fever Apixaban 5 mg 10/10/21 09:00 10/16/21 09:38 Apixaban 5 Mg Tablet PO 5 mg Q12HR SELMA Administration Collagenase 1 applic 10/10/21 09:00 10/16/21 09:39 Collagenase Oint 30 Gm Tube TOPICAL 1 applic QAM SELMA Administration Dextrose 12.5 gm 10/14/21 10:58 Dextrose 50% 25 Gm/50 Ml Syringe IV PUSH PRN PRN Hypoglycemia Protocol Famotidine 40 mg 10/10/21 09:00 10/16/21 09:38 Famotidine 20 Mg Tablet PO 40 mg DAILY SELMA Administration Ferrous Sulfate 324 mg 10/10/21 08:00 10/16/21 09:38 Ferrous Sulfate 324 Mg Tablet PO 324 mg DAILY@0800 SELMA Administration Glucagon 1 mg 10/14/21 10:58 Glucagon For Inj 1 Mg Vial IM PRN PRN Hypoglycemia Protocol Glucose 15 gm 10/14/21 10:58 Glucose Oral Gel 15 Gm Of Glucse In 37.5 Gm Tube PO PRN PRN Hypoglycemia Protocol Ceftriaxone Sodium 2 gm/ 100 mls @ 200 mls/hr 10/11/21 09:00 10/16/21 09:39 Sodium Chloride IVPB 11/03/21 10:00 100 mls/hr DAILY SELMA Administration Sodium Chloride 1,000 mls @ 75 mls/hr 10/10/21 11:25 10/16/21 09:42 Normal Saline Iv IV CONT 75 mls/hr .[id number] SELMA Admini
[2021-10-16 15:30] VITALS: BP 156/88; PULSE 89; RESP 16; TEMP 36.1; O2SAT 97
--- NOTE | 2021-10-16 16:37 | PM.IMPN ---
Progress Note: A&P Assessment and Plan (1) UTI (urinary tract infection): Qualifiers: Hematuria presence: with hematuria Urinary tract infection type: site unspecified Qualified Code(s): N39.0 - Urinary tract infection, site not specified; R31.9 - Hematuria, unspecified Code(s): N39.0 - Urinary tract infection, site not specified Status: Acute Assessment and Plan: Urine culture came back negative for infection, Rocephin discontinued (2) Hypokalemia: Code(s): E87.6 - Hypokalemia Status: Acute Assessment and Plan: replace as needed, check magnesium, unsure of etiology (3) Acute kidney injury superimposed on chronic kidney disease: Code(s): N17.9 - Acute kidney failure, unspecified; N18.9 - Chronic kidney disease, unspecified Status: Acute Assessment and Plan: Monitor creatinine. Creatinine is no better Differential does include AIN. Possibly from antibiotics. Discussed with Renal. Consult Nephrology Discussed with pharmacist. Switched from vanc to linezolid all 10/12. No improvement kidney function. Question kidney injury etiology. Appreciate Nephrology input. Concern for long-term exposure to linezolid. If this is not related to antibiotic exposure or AIN, recommend switching back to vanc and Rocephin on discharge. Renal scan ordered by Nephrology. Question need for biopsy. Will defer to Nephrology (4) Type 2 diabetes mellitus, uncontrolled, with renal complications: Status: Acute Assessment and Plan: resume home meds continue to monitor (5) Diabetic neuropathy: Code(s): E11.40 - Type 2 diabetes mellitus with diabetic neuropathy, unspecified Status: Acute Assessment and Plan: unchanged (6) Chronic kidney disease: Code(s): N18.9 - Chronic kidney disease, unspecified Status: Acute Assessment and Plan: continue to monitor (7) Osteomyelitis: Qualifiers: Laterality: right Osteomyelitis location: foot Osteomyelitis type: unspecified type Qualified Code(s): M86.9 - Osteomyelitis, unspecified Code(s): M86.9 - Osteomyelitis, unspecified Status: Acute Assessment and Plan: PICC line in place continue vancomycin (8) Leukocytosis (leucocytosis): Code(s): D72.829 - Elevated white blood cell count, unspecified Status: Acute Assessment and Plan: Resolving (9) Neurogenic dysfunction of the urinary bladder: Code(s): N31.9 - Neuromuscular dysfunction of bladder, unspecified Status: Acute Assessment and Plan: patient self catheterizes Subjective Date/time seen: 10/16/21 16:37 Interval history: No overnight events noted. No chest pain or shortness of breath. No nausea, vomiting or diarrhea. No fevers or chills. Review of Systems Review of Systems: 12 point review of systems was assessed and was negative except as noted in the HPI Exam Narrative: General: No acute distress, alert and oriented per baseline HEENT: Atraumatic, normocephalic, mucous membranes moist CV: Regular rate and rhythm, S1, S2 Lungs: Clear to auscultation bilaterally, no rales or crackles noted, no wheezes, good air entry Abdomen: Soft, nontender, nondistended Extremities: Normal to inspection Skin: No rashes noted, no lesions or wounds seen Psych: Euthymic, normal affect Objective Data Vital Signs Vital Signs: Vital Signs - 24 hr 10/15/21 22:00 10/16/21 06:00 10/16/21 15:30 Temperature 98.1 F 98.2 F 97.0 F L Pulse Rate 83 78 89 Respiratory Rate 18 16 16 Blood Pressure 156/82 H 148/70 H 156/88 H Pulse Oximetry 95 96 97 Intake/Output Intake/Output: Intake & Output 10/13/21 10/14/21 10/15/21 10/16/21 23:59 23:59 23:59 23:59 Intake Total 2780 3450 3330 320 Output Total 900 1975 450 Balance 1880 1475 2880 320 Meds/Results Medications: Active Medications Generic Name Dose Route Start Last Admin Trade Name
[2021-10-16 17:22] LABS: Glucose Point of Care 106 mg/dl (65-105)
[2021-10-16 20:00] VITALS: PULSE 84; RESP 16; O2SAT 96
[2021-10-16] MEDS: INSULIN GLARGINE (*BKC) 100 UNITS/ML 25 UNITS SUB-Q (20:36)
[2021-10-16 20:38] VITALS: BP 162/89; PULSE 84; RESP 16; TEMP 36.6; O2SAT 96
[2021-10-16 20:42] LABS: Glucose Point of Care 158 mg/dl (65-105)
[2021-10-17 04:56] LABS: Basophils Absolute Auto 0.1 K/mm3 (0.0-0.1); Basophils Percent Auto 0.7 % (0.2-1.2); Eosinophils Absolute Auto 0.5 K/mm3 (0-0.3); Eosinophils Percent Auto 6.8 % (0-4.4); Hematocrit 24.8 % (37.0-47.0); Hemoglobin 7.8 g/dL (12.0-15.0); Immature Granulocyte Absolute 0.05 K/mm3 (0.00-0.031); Immature Granulocyte Percent A 0.7 % (0-0.5); Lymphocytes Absolute Auto 1.62 K/mm3 (0.9-3.2); Lymphocytes Percent Auto 21.6 % (18.3-44.2); Mean Corpuscular HGB Conc 31.5 g/dl (32-36); Mean Corpuscular Hemoglobin 27.9 pg (26-34); Mean Corpuscular Volume 88.6 fl (80-100); Mean Platelet Volume 9.8 fl (7.4-10.4); Monocytes Absolute Auto 0.5 K/mm3 (0.1-0.6); Monocytes Percent Auto 6.4 % (2.6-8.5); Neutrophils Absolute Auto 4.8 K/mm3 (1.3-6.7); Neutrophils Percent Auto 63.8 % (45.5-73.1); Platelet Count Result 316 k/mm3 (150-375); Red Cell Distribution Width 16.3 % (11.5-14.5); White Blood Count 7.5 K/mm3 (4.5-10.0)
[2021-10-17 05:13] LABS: Albumin Level 2.6 g/dL (3.5-5.1); Anion Gap 7 mmol/L (8-16); Blood Urea Nitrogen 14 mg/dL (7-17); Calcium 7.6 mg/dL (8.4-10.2); Carbon Dioxide 23 mmol/L (22-30); Chloride 106 mmol/L (98-107); Estimated CRCL calculation 27 ml/min; Estimated Glomerular Filt Rate 20; Glucose 77 mg/dL (65-110); Phosphorus 3.9 mg/dL (2.5-4.5); Potassium 4.4 mmol/L (3.4-5.0); Sodium 136 mmol/L (137-145)
[2021-10-17 06:00] VITALS: BP 169/87; PULSE 80; RESP 18; TEMP 36.7; O2SAT 96
[2021-10-17] MEDS: cefTRIAXone 2 GM in SODIUM CHLORIDE 0.9% IV 100 ML 200 ML IVPB (08:18)
[2021-10-17] MEDS: COLLAGENASE OINT 30 GM TUBE 1 APPLIC TOPICAL (08:21)
[2021-10-17] MEDS: LINEZOLID 600 MG TABLET PO ×2 (08:21→20:18)
[2021-10-17] MEDS: FAMOTIDINE 20 MG TABLET 40 MG PO (08:21)
[2021-10-17] MEDS: APIXABAN 5 MG TABLET PO ×2 (08:21→20:18)
[2021-10-17] MEDS: FERROUS SULFATE 324 MG TABLET PO (08:21)
[2021-10-17] MEDS: GLUCOSE ORAL GEL 15 GM OF GLUCSE IN 37.5 GM TUBE PO (08:38)
[2021-10-17 09:41] LABS: Glucose Point of Care 53 mg/dl (65-105)
[2021-10-17 09:42] LABS: Glucose Point of Care 95 mg/dl (65-105)
[2021-10-17 09:42] LABS: Glucose Point of Care 54 mg/dl (65-105)
--- NOTE | 2021-10-17 11:38 | PCNWS ---
Weekly nutritional screen. Patient is tolerating current diet with adequate intake. No weight loss reported. No nutritional needs at this time.
[2021-10-17 12:01] LABS: Glucose Point of Care 134 mg/dl (65-105)
[2021-10-17 13:51] VITALS: BP 162/86; PULSE 91; RESP 20; TEMP 36.6; O2SAT 99
[2021-10-17] MEDS: SODIUM CHLORIDE 0.9% IV 1,000 ML 75 ML IV CONT (14:14)
--- NOTE | 2021-10-17 16:09 | PM.PNNEP ---
Progress Note: A&P Additional Plan 1. Kylie has chronic kidney disease. Her baseline creatinine is 1.4 and GFR is 38 consistent with stage III B chronic kidney disease. This is most likely due to diabetes and hypertension. 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 sees Dr White chronically 2. The patient has acute kidney injury. CK is normal. Fraction excretion of sodium is not pre renal however she was on diuretics before admission. Fractional excretion of urea is 34.5 which is barely pre renal. renal scan shows uptake without excretion. some asymmetry in the kidney function. her creatinine is elevated but seems to be stable. in the mid 2s. the patient may have pyelonephritis. Urine cultures are negative because she was on IV antibiotics before. We already changed from vancomycin to linezolid. Continue IV fluids. 3. The patient has hypertension. She is currently on no antihypertensives. Her lisinopril was held, appropriately. will give a small dose of amlodipine. 4. The patient has diabetes. He is on Accu-Cheks and insulin. This is being managed by the hospitalists. 5. The patient has pyuria. This is being covered by her antibiotics. She also intermittently straight cath so could have some colonization in the bladder as well. 6. The patient's sodium level is slightly low the. This might be due to her high sugar. Will follow this along. Subjective Date/time seen: 10/17/21 16:09 Interval history: Patient feels about the same. appetite is okay. Exam Narrative: WDWN in NAD skin no rash or sq noduls head ncat lungs clear cor reg no rub or gallop abd BS+ nontender and soft ext no edema or cyanosis.. Bandage on right foot Objective Data Vital Signs Vital Signs: Vital Signs - 24 hr 10/16/21 20:38 10/16/21 20:00 10/17/21 06:00 Temperature 36.6 C 36.7 C Pulse Rate 84 84 80 Respiratory Rate 16 16 18 Blood Pressure 162/89 H 169/87 H Pulse Oximetry 96 96 96 Oxygen Delivery Room Air 10/17/21 13:51 Temperature 36.6 C Pulse Rate 91 Respiratory Rate 20 Blood Pressure 162/86 H Pulse Oximetry 99 Oxygen Delivery Intake/Output Intake/Output: Intake & Output 10/14/21 10/15/21 10/16/21 10/17/21 23:59 23:59 23:59 23:59 Intake Total 3450 3330 2560 2260 Output Total 1975 450 400 Balance 1475 2880 2560 1860 Meds/Results Medications: Active Medications Generic Name Dose Route Start Last Admin Trade Name Freq PRN Reason Stop Dose Admin Acetaminophen 650 mg 10/10/21 00:03 10/13/21 15:38 Acetaminophen 325 Mg Tablet PO 650 mg Q4H PRN Administration Mild Pain (1-3) Or Fever Apixaban 5 mg 10/10/21 09:00 10/17/21 08:21 Apixaban 5 Mg Tablet PO 5 mg Q12HR SELMA Administration Collagenase 1 applic 10/10/21 09:00 10/17/21 08:21 Collagenase Oint 30 Gm Tube TOPICAL 1 applic QAM SELMA Administration Dextrose 12.5 gm 10/14/21 10:58 Dextrose 50% 25 Gm/50 Ml Syringe IV PUSH PRN PRN Hypoglycemia Protocol Famotidine 40 mg 10/10/21 09:00 10/17/21 08:21 Famotidine 20 Mg Tablet PO 40 mg DAILY SELMA Administration Ferrous Sulfate 324 mg 10/10/21 08:00 10/17/21 08:21 Ferrous Sulfate 324 Mg Tablet PO 324 mg DAILY@0800 SELMA Administration Glucagon 1 mg 10/14/21 10:58 Glucagon For Inj 1 Mg Vial IM PRN PRN Hypoglycemia Protocol Glucose 15 gm 10/14/21 10:58 10/17/21 08:38 Glucose Oral Gel 15 Gm Of Glucse In 37.5 Gm Tube PO 15 gm PRN PRN Administration Hypoglycemia Protocol Ceftriaxone Sodium 2 gm/ 100 mls @ 200 mls/hr 10/11/21 09:00 10/17/21 09:18 Sodium Chloride IVPB 11/03/21 10:00 Infused DAILY SELMA Infusion Sodium Chloride 1,000 mls @ 75 mls/hr 10/10/21 11:25 10/17/21 14:14 Normal Saline Iv IV CONT 75 mls/hr .[id number] SELMA Administration Dextrose 1,000 mls @ 100 mls/hr 10/14/21 10:58 Dextrose 5% 1,000 Ml
[2021-10-17 16:36] LABS: Glucose Point of Care 190 mg/dl (65-105)
[2021-10-17] MEDS: amLODIPine BESYLATE 2.5 MG TABLET PO (17:08)
[2021-10-17] MEDS: CENTRAL LINE FLUSH 10 ML IV PUSH ×2 (17:08→20:22)
--- NOTE | 2021-10-17 18:32 | PM.IMPN ---
Progress Note: A&P Assessment and Plan (1) UTI (urinary tract infection): Qualifiers: Hematuria presence: with hematuria Urinary tract infection type: site unspecified Qualified Code(s): N39.0 - Urinary tract infection, site not specified; R31.9 - Hematuria, unspecified Code(s): N39.0 - Urinary tract infection, site not specified Status: Acute Assessment and Plan: Urine culture came back negative for infection, Rocephin discontinued (2) Hypokalemia: Code(s): E87.6 - Hypokalemia Status: Acute Assessment and Plan: replace as needed, check magnesium, unsure of etiology (3) Acute kidney injury superimposed on chronic kidney disease: Code(s): N17.9 - Acute kidney failure, unspecified; N18.9 - Chronic kidney disease, unspecified Status: Acute Assessment and Plan: Appreciate nephrology consultation, may have to discharge patient on linezolid to complete her course of antibiotics until November 11 (4) Type 2 diabetes mellitus, uncontrolled, with renal complications: Status: Acute Assessment and Plan: resume home meds continue to monitor (5) Diabetic neuropathy: Code(s): E11.40 - Type 2 diabetes mellitus with diabetic neuropathy, unspecified Status: Acute Assessment and Plan: unchanged (6) Chronic kidney disease: Code(s): N18.9 - Chronic kidney disease, unspecified Status: Acute Assessment and Plan: continue to monitor (7) Osteomyelitis: Qualifiers: Laterality: right Osteomyelitis location: foot Osteomyelitis type: unspecified type Qualified Code(s): M86.9 - Osteomyelitis, unspecified Code(s): M86.9 - Osteomyelitis, unspecified Status: Acute Assessment and Plan: PICC line in place vanc held d/t kidney injury (8) Leukocytosis (leucocytosis): Code(s): D72.829 - Elevated white blood cell count, unspecified Status: Acute Assessment and Plan: Resolving (9) Neurogenic dysfunction of the urinary bladder: Code(s): N31.9 - Neuromuscular dysfunction of bladder, unspecified Status: Acute Assessment and Plan: patient self catheterizes Subjective Date/time seen: 10/17/21 18:32 Interval history: No overnight events noted. No chest pain or shortness of breath. No nausea, vomiting or diarrhea. No fevers or chills. Review of Systems Review of Systems: 12 point review of systems was assessed and was negative except as noted in the HPI Exam Narrative: General: No acute distress, alert and oriented per baseline HEENT: Atraumatic, normocephalic, mucous membranes moist CV: Regular rate and rhythm, S1, S2 Lungs: Clear to auscultation bilaterally, no rales or crackles noted, no wheezes, good air entry Abdomen: Soft, nontender, nondistended Extremities: Right lower extremity in bandages that are clean dry and intact, boot in place Skin: No rashes noted, no lesions or wounds seen Psych: Euthymic, normal affect Objective Data Vital Signs Vital Signs: Vital Signs - 24 hr 10/16/21 20:38 10/16/21 20:00 10/17/21 06:00 Temperature 97.9 F 98.0 F Pulse Rate 84 84 80 Respiratory Rate 16 16 18 Blood Pressure 162/89 H 169/87 H Pulse Oximetry 96 96 96 Oxygen Delivery Room Air 10/17/21 13:51 Temperature 97.8 F Pulse Rate 91 Respiratory Rate 20 Blood Pressure 162/86 H Pulse Oximetry 99 Oxygen Delivery Intake/Output Intake/Output: Intake & Output 10/14/21 10/15/21 10/16/21 10/17/21 23:59 23:59 23:59 23:59 Intake Total 3450 3330 2560 3300 Output Total 1949 222 1728 Balance 1475 2880 2560 2100 Meds/Results Medications: Active Medications Generic Name Dose Route Start Last Admin Trade Name Freq PRN Reason Stop Dose Admin Acetaminophen 650 mg 10/10/21 00:03 10/13/21 15:38 Acetaminophen 325 Mg Tablet PO 650 mg Q4H PRN Administration Mild Pain (1-3) Or Fever Amlodipine Besylate 2
[2021-10-17 19:49] VITALS: BP 155/88; PULSE 87; RESP 18; TEMP 36.3; O2SAT 97
[2021-10-17 20:16] LABS: Glucose Point of Care 197 mg/dl (65-105)
[2021-10-17] MEDS: ERTAPENEM SODIUM 0.5 GM in SODIUM CHLORIDE 0.9% IV 50 ML IVPB (20:18)
[2021-10-17] MEDS: INSULIN GLARGINE (*BKC) 100 UNITS/ML 25 UNITS SUB-Q (20:25)
[2021-10-18] MEDS: SODIUM CHLORIDE 0.9% IV 1,000 ML 75 ML IV CONT ×2 (03:50→18:03)
[2021-10-18 05:12] VITALS: BP 158/90; PULSE 86; RESP 16; TEMP 36.3; O2SAT 99
[2021-10-18 06:32] LABS: Basophils Absolute Auto 0.1 K/mm3 (0.0-0.1); Basophils Percent Auto 0.9 % (0.2-1.2); Eosinophils Absolute Auto 0.4 K/mm3 (0-0.3); Eosinophils Percent Auto 5.4 % (0-4.4); Hematocrit 26.1 % (37.0-47.0); Immature Granulocyte Absolute 0.05 K/mm3 (0.00-0.031); Immature Granulocyte Percent A 0.8 % (0-0.5); Lymphocytes Absolute Auto 1.49 K/mm3 (0.9-3.2); Mean Corpuscular HGB Conc 30.7 g/dl (32-36); Mean Corpuscular Hemoglobin 27.1 pg (26-34); Mean Corpuscular Volume 88.5 fl (80-100); Mean Platelet Volume 9.7 fl (7.4-10.4); Monocytes Absolute Auto 0.4 K/mm3 (0.1-0.6); Monocytes Percent Auto 6.5 % (2.6-8.5); Neutrophils Absolute Auto 4.1 K/mm3 (1.3-6.7); Neutrophils Percent Auto 63.4 % (45.5-73.1); Platelet Count Result 333 k/mm3 (150-375); Red Blood Count 2.95 M/mm3 (4.2-5.4); Red Cell Distribution Width 16.3 % (11.5-14.5); White Blood Count 6.5 K/mm3 (4.5-10.0)
[2021-10-18 06:59] LABS: Albumin Level 2.7 g/dL (3.5-5.1); Anion Gap 10 mmol/L (8-16); Blood Urea Nitrogen 16 mg/dL (7-17); Calcium 7.8 mg/dL (8.4-10.2); Carbon Dioxide 21 mmol/L (22-30); Chloride 104 mmol/L (98-107); Estimated CRCL calculation 27 ml/min; Estimated Glomerular Filt Rate 20; Glucose 139 mg/dL (65-110); Phosphorus 4.4 mg/dL (2.5-4.5); Potassium 3.6 mmol/L (3.4-5.0); Sodium 135 mmol/L (137-145)
--- NOTE | 2021-10-18 08:16 | PM.PNGS ---
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 I reviewed the CT and the couple small areas of subcutaneous gas could be related to the open wound and recent surgery. I am not even sure why a repeat CT was done in the 1st place as patient does not appear to have any significant changes to the wound. It was already known that she has osteomyelitis within the wound and long-term treatment was going to be required. Continue Santyl dressing changes. If patient remains in the hospital through the weekend, will have Dr. Cuevas evaluate wound on Wednesday. Ultimately she can follow up with her block feeder as an outpatient to determine further surgical treatment from there. (2) Osteomyelitis: Qualifiers: Laterality: right Osteomyelitis location: foot Osteomyelitis type: unspecified type Qualified Code(s): M86.9 - Osteomyelitis, unspecified Code(s): M86.9 - Osteomyelitis, unspecified Status: Acute (3) Type 2 diabetes mellitus, uncontrolled, with renal complications: Status: Acute (4) Diabetic neuropathy: Code(s): E11.40 - Type 2 diabetes mellitus with diabetic neuropathy, unspecified Status: Acute Subjective Subjective Date/Time Seen: 10/18/21 08:16 Interval history: I was asked to re-evaluate patient for right foot infection and osteomyelitis. Patient reports no changes with the foot wound. She has been undergoing Santyl treatment to the wound bed. She denies any increasing pain or increased drainage. She denies fevers. Exam Extrem: Other: Right foot wound examined. Open wound has yellow firm tissue at wound bed. Wound near 4th metatarsal head appears slightly softer but no purulence drainage expressed. Fourth toe appears normal color and viable. No surrounding erythema to skin. No crepitus or fluctuance. Objective Data Vital Signs Vital Signs: Vital Signs - 24 hr 10/17/21 13:51 10/17/21 19:49 10/18/21 05:12 Temperature 36.6 C 36.3 C L 36.3 C L Pulse Rate 91 87 86 Respiratory Rate 20 18 16 Blood Pressure 162/86 H 155/88 H 158/90 H Pulse Oximetry 99 97 99 Intake/Output Intake/Output: Intake & Output 10/15/21 10/16/21 10/17/21 10/18/21 23:59 23:59 23:59 23:59 Intake Total 3330 2560 3700 1300 Output Total 450 1350 700 Balance 2880 2560 2350 600 Meds/Results Medications: Active Medications Generic Name Dose Route Start Last Admin Trade Name Freq PRN Reason Stop Dose Admin Acetaminophen 650 mg 10/10/21 00:03 10/13/21 15:38 Acetaminophen 325 Mg Tablet PO 650 mg Q4H PRN Administration Mild Pain (1-3) Or Fever Amlodipine Besylate 2.5 mg 10/17/21 16:15 10/17/21 17:08 Amlodipine Besylate 2.5 Mg Tablet PO 2.5 mg QAM SELMA Administration Apixaban 5 mg 10/10/21 09:00 10/17/21 20:18 Apixaban 5 Mg Tablet PO 5 mg Q12HR SELMA Administration Collagenase 1 applic 10/10/21 09:00 10/17/21 08:21 Collagenase Oint 30 Gm Tube TOPICAL 1 applic QAM SELMA Administration Dextrose 12.5 gm 10/14/21 10:58 Dextrose 50% 25 Gm/50 Ml Syringe IV PUSH PRN PRN Hypoglycemia Protocol Famotidine 40 mg 10/10/21 09:00 10/17/21 08:21 Famotidine 20 Mg Tablet PO 40 mg DAILY SELMA Administration Ferrous Sulfate 324 mg 0
[2021-10-18] MEDS: cefTRIAXone 2 GM in SODIUM CHLORIDE 0.9% IV 100 ML 200 ML IVPB (08:41)
[2021-10-18] MEDS: FAMOTIDINE 20 MG TABLET 40 MG PO (08:42)
[2021-10-18] MEDS: FERROUS SULFATE 324 MG TABLET PO (08:42)
[2021-10-18] MEDS: CENTRAL LINE FLUSH 10 ML IV PUSH ×3 (08:42→20:30)
[2021-10-18] MEDS: LINEZOLID 600 MG TABLET PO ×2 (08:42→20:29)
[2021-10-18] MEDS: COLLAGENASE OINT 30 GM TUBE 1 APPLIC TOPICAL (08:43)
[2021-10-18] MEDS: APIXABAN 5 MG TABLET PO ×2 (08:43→20:29)
[2021-10-18] MEDS: amLODIPine BESYLATE 2.5 MG TABLET PO (10:09)
--- NOTE | 2021-10-18 11:46 | PM.PNNEP ---
Progress Note: A&P Additional Plan 1. Kylie has chronic kidney disease. Her baseline creatinine is 1.4 and GFR is 38 consistent with stage III B chronic kidney disease. This is most likely due to diabetes and hypertension. 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 sees Dr White chronically 2. The patient has acute kidney injury. CK is normal. Fraction excretion of sodium is not pre renal however she was on diuretics before admission. Fractional excretion of urea is 34.5 which is barely pre renal. renal scan shows uptake without excretion. some asymmetry in the kidney function. etiology of the SHREYA is not clear. Consider allergy versus infection? She did have pyuria but her cultures were negative. She has been on antibiotics. Consider renal biopsy since she is not getting better? I will talk with Dr. White. her creatinine is elevated but seems to be stable. in the mid 2s. it is not improving toward her former baseline. She has a little swelling so in going to stop the IV fluids. 3. The patient has hypertension. She is currently on no antihypertensives. Her lisinopril was held, appropriately. will give a small dose of amlodipine. 4. The patient has diabetes. He is on Accu-Cheks and insulin. This is being managed by the hospitalists. 5. The patient has pyuria. This is being covered by her antibiotics. She also intermittently straight cath so could have some colonization in the bladder as well. 6. The patient's sodium level is slightly low the. This might be due to her high sugar. Will follow this along. Subjective Date/time seen: 10/18/21 11:46 Interval history: Patient feels okay. Sitting up at the side of the bed. she has some swelling. Review of Systems Cardiovascular: Cardiovascular: Reports no additional cardiovascular complaints Respiratory: Respiratory: Reports no additional respiratory complaints Gastrointestinal: Gastrointestinal: Reports no additional gastrointestinal complaints Genitourinary: Genitourinary: Reports no additional female genitourinary complaints Exam Narrative: WDWN in NAD skin no rash or sq noduls head ncat lungs clear cor reg no rub or gallop abd BS+ nontender and soft ext 1+ Bilateral edema. Bandage on right foot Objective Data Vital Signs Vital Signs: Vital Signs - 24 hr 10/17/21 13:51 10/17/21 19:49 10/18/21 05:12 Temperature 36.6 C 36.3 C L 36.3 C L Pulse Rate 91 87 86 Respiratory Rate 20 18 16 Blood Pressure 162/86 H 155/88 H 158/90 H Pulse Oximetry 99 97 99 Oxygen Delivery 10/18/21 08:40 Temperature Pulse Rate Respiratory Rate Blood Pressure Pulse Oximetry Oxygen Delivery Room Air Intake/Output Intake/Output: Intake & Output 10/15/21 10/16/21 10/17/21 10/18/21 23:59 23:59 23:59 23:59 Intake Total 3330 2560 3700 1420 Output Total 450 1350 700 Balance 2880 2560 2350 720 Meds/Results Medications: Active Medications Generic Name Dose Route Start Last Admin Trade Name Freq PRN Reason Stop Dose Admin Acetaminophen 650 mg 10/10/21 00:03 10/13/21 15:38 Acetaminophen 325 Mg Tablet PO 650 mg Q4H PRN Administration Mild Pain (1-3) Or Fever Amlodipine Besylate 2.5 mg 10/17/21 16:15 10/18/21 10:09 Amlodipine Besylate 2.5 Mg Tablet PO 2.5 mg QAM SELMA Administration Apixaban 5 mg 10/10/21 09:00 10/18/21 08:43 Apixaban 5 Mg Tablet PO 5 mg Q12HR SELMA Administration Collagenase 1 applic 10/10/21 09:00 10/18/21 08:43 Collagenase Oint 30 Gm Tube TOPICAL 1 applic QAM SELMA Administration Dextrose 12.5 gm 10/14/21 10:58 Dextrose 50% 25 Gm/50 Ml Syringe IV PUSH PRN PRN Hypoglycemia Protocol Docusate Sodium 100 mg 10/18/21 08:55 Docusate Sodium 100 Mg Capsule PO Q12H PRN Constipation Famotidine 40 mg 10/10/21 09:00 10/18/21 08:42 Famotidine 20 Mg Tablet PO 40 mg DAILY SELMA Adminis
[2021-10-18 12:24] LABS: Glucose Point of Care 153 mg/dl (65-105)
[2021-10-18] MEDS: DOCUSATE SODIUM 100 MG CAPSULE PO (12:42)
[2021-10-18 14:00] VITALS: BP 134/83; PULSE 81; RESP 18; TEMP 36.8; O2SAT 100
--- NOTE | 2021-10-18 15:36 | PM.IMPN ---
Progress Note: A&P Assessment and Plan (1) Acute kidney injury superimposed on chronic kidney disease: Code(s): N17.9 - Acute kidney failure, unspecified; N18.9 - Chronic kidney disease, unspecified Status: Acute Assessment and Plan: Appreciate nephrology consultation, may have to discharge patient on linezolid to complete her course of antibiotics until November 11 Renal biopsy planned, unsure of etiology of SHREYA, off vanc and little improvement (2) Type 2 diabetes mellitus, uncontrolled, with renal complications: Status: Acute Assessment and Plan: resume home meds continue to monitor relatively controlled, a1c 11 10/03, under 200 consistently here (3) Diabetic neuropathy: Code(s): E11.40 - Type 2 diabetes mellitus with diabetic neuropathy, unspecified Status: Acute Assessment and Plan: unchanged, as above (4) Osteomyelitis: Qualifiers: Laterality: right Osteomyelitis location: foot Osteomyelitis type: unspecified type Qualified Code(s): M86.9 - Osteomyelitis, unspecified Code(s): M86.9 - Osteomyelitis, unspecified Status: Acute Assessment and Plan: PICC line in place vanc held d/t kidney injury, cont linezold repeat imaging shows progression or osteomyelitis, prior wound cx did show klebsiella ESBL so ertapenem was added to MRSA coverage for now, would recommend repeat imaging at end of 6 week course November 11, if that imaging shows improvement but not resolution, would add 6 weeks from today of ertapenem and d/c MRSA coverage vs surgical intervention (5) Neurogenic dysfunction of the urinary bladder: Code(s): N31.9 - Neuromuscular dysfunction of bladder, unspecified Status: Acute Assessment and Plan: patient self catheterizes Subjective Date/time seen: 10/18/21 15:36 Objective Data Vital Signs Vital Signs: Vital Signs - 24 hr 10/17/21 19:49 10/18/21 05:12 10/18/21 08:40 Temperature 97.4 F L 97.4 F L Pulse Rate 87 86 Respiratory Rate 18 16 Blood Pressure 155/88 H 158/90 H Pulse Oximetry 97 99 Oxygen Delivery Room Air 10/18/21 14:00 Temperature 98.3 F Pulse Rate 81 Respiratory Rate 18 Blood Pressure 134/83 Pulse Oximetry 100 Oxygen Delivery Intake/Output Intake/Output: Intake & Output 10/15/21 10/16/21 10/17/21 10/18/21 23:59 23:59 23:59 23:59 Intake Total 3330 2560 3700 1660 Output Total 450 1350 700 Balance 2880 2560 2350 960 Meds/Results Medications: Active Medications Generic Name Dose Route Start Last Admin Trade Name Freq PRN Reason Stop Dose Admin Acetaminophen 650 mg 10/10/21 00:03 10/13/21 15:38 Acetaminophen 325 Mg Tablet PO 650 mg Q4H PRN Administration Mild Pain (1-3) Or Fever Amlodipine Besylate 2.5 mg 10/17/21 16:15 10/18/21 10:09 Amlodipine Besylate 2.5 Mg Tablet PO 2.5 mg QAM SELMA Administration Apixaban 5 mg 10/10/21 09:00 10/18/21 08:43 Apixaban 5 Mg Tablet PO 5 mg Q12HR SELMA Administration Collagenase 1 applic 10/10/21 09:00 10/18/21 08:43 Collagenase Oint 30 Gm Tube TOPICAL 1 applic QAM SELMA Administration Dextrose 12.5 gm 10/14/21 10:58 Dextrose 50% 25 Gm/50 Ml Syringe IV PUSH PRN PRN Hypoglycemia Protocol Docusate Sodium 100 mg 10/18/21 08:55 10/18/21 12:42 Docusate Sodium 100 Mg Capsule PO 100 mg Q12H PRN Administration Constipation Famotidine 40 mg 10/10/21 09:00 10/18/21 08:42 Famotidine 20 Mg Tablet PO 40 mg DAILY SELMA Administration Ferrous Sulfate 324 mg 10/10/21 08:00 10/18/21 08:42 Ferrous Sulfate 324 Mg Tablet PO 324 mg DAILY@0800 SELMA Administration Glucagon 1 mg 10/14/21 10:58 Glucagon For Inj 1 Mg Vial IM PRN PRN Hypoglycemia Protocol Glucose 15 gm 10/14/21 10:58 10/17/21 08:38 Glucose Oral Gel 15 Gm Of Glucse In 37.5 Gm Tube PO 15 gm PRN PRN Administration Hypoglycemia Protoc
[2021-10-18 16:48] LABS: Glucose Point of Care 170 mg/dl (65-105)
[2021-10-18] MEDS: ONDANSETRON INJ 4 MG/2 ML VIAL IV PUSH (18:03)
[2021-10-18] MEDS: FLUCONAZOLE 150 MG TABLET PO (18:39)
[2021-10-18] MEDS: ERTAPENEM SODIUM 0.5 GM in SODIUM CHLORIDE 0.9% IV 50 ML IVPB (20:28)
[2021-10-18 20:34] VITALS: BP 162/86; PULSE 89; RESP 18; TEMP 36.3; O2SAT 97
[2021-10-18 21:01] LABS: Glucose Point of Care 189 mg/dl (65-105)
[2021-10-18] MEDS: INSULIN GLARGINE (*BKC) 100 UNITS/ML 25 UNITS SUB-Q (22:12)
[2021-10-19 04:31] VITALS: BP 146/85; PULSE 80; RESP 16; TEMP 36.6; O2SAT 99
[2021-10-19 04:39] LABS: Glucose Point of Care 107 mg/dl (65-105)
[2021-10-19 06:32] LABS: Basophils Percent Auto 0.6 % (0.2-1.2); Eosinophils Absolute Auto 0.3 K/mm3 (0-0.3); Eosinophils Percent Auto 4.7 % (0-4.4); Hematocrit 26.3 % (37.0-47.0); Hemoglobin 8.1 g/dL (12.0-15.0); Immature Granulocyte Absolute 0.04 K/mm3 (0.00-0.031); Immature Granulocyte Percent A 0.6 % (0-0.5); Lymphocytes Absolute Auto 1.57 K/mm3 (0.9-3.2); Lymphocytes Percent Auto 23.8 % (18.3-44.2); Mean Corpuscular HGB Conc 30.8 g/dl (32-36); Mean Corpuscular Hemoglobin 26.9 pg (26-34); Mean Corpuscular Volume 87.4 fl (80-100); Mean Platelet Volume 9.6 fl (7.4-10.4); Monocytes Absolute Auto 0.4 K/mm3 (0.1-0.6); Monocytes Percent Auto 6.2 % (2.6-8.5); Neutrophils Absolute Auto 4.2 K/mm3 (1.3-6.7); Neutrophils Percent Auto 64.1 % (45.5-73.1); Platelet Count Result 304 k/mm3 (150-375); Red Blood Count 3.01 M/mm3 (4.2-5.4); Red Cell Distribution Width 16.3 % (11.5-14.5); White Blood Count 6.6 K/mm3 (4.5-10.0)
[2021-10-19] MEDS: CENTRAL LINE FLUSH 10 ML IV PUSH ×3 (06:37→21:43)
[2021-10-19 06:40] LABS: Albumin Level 2.7 g/dL (3.5-5.1); Anion Gap 8 mmol/L (8-16); Blood Urea Nitrogen 16 mg/dL (7-17); Carbon Dioxide 22 mmol/L (22-30); Chloride 106 mmol/L (98-107); Estimated CRCL calculation 27 ml/min; Estimated Glomerular Filt Rate 20; Glucose 95 mg/dL (65-110); Phosphorus 4.4 mg/dL (2.5-4.5); Potassium 4.2 mmol/L (3.4-5.0); Sodium 136 mmol/L (137-145)
[2021-10-19 08:06] LABS: Glucose Point of Care 79 mg/dl (65-105)
[2021-10-19] MEDS: SODIUM CHLORIDE 0.9% IV 1,000 ML 75 ML IV CONT ×2 (08:37→21:41)
[2021-10-19] MEDS: cefTRIAXone 2 GM in SODIUM CHLORIDE 0.9% IV 100 ML 200 ML IVPB (08:38)
[2021-10-19] MEDS: APIXABAN 5 MG TABLET PO ×2 (08:44→21:42)
[2021-10-19] MEDS: amLODIPine BESYLATE 2.5 MG TABLET PO (08:44)
[2021-10-19] MEDS: LINEZOLID 600 MG TABLET PO ×2 (08:44→21:42)
[2021-10-19] MEDS: FAMOTIDINE 20 MG TABLET 40 MG PO (08:44)
[2021-10-19] MEDS: COLLAGENASE OINT 30 GM TUBE 1 APPLIC TOPICAL (08:44)
[2021-10-19] MEDS: FERROUS SULFATE 324 MG TABLET PO (08:44)
--- NOTE | 2021-10-19 11:38 | PM.PNNEP ---
Progress Note: A&P Additional Plan 1. Kylie has chronic kidney disease. Her baseline creatinine is 1.4 and GFR is 38 consistent with stage III B chronic kidney disease. This is most likely due to diabetes and hypertension. 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 sees Dr White chronically 2. The patient has acute kidney injury. CK is normal. Fraction excretion of sodium is not pre renal however she was on diuretics before admission. Fractional excretion of urea is 34.5 which is barely pre renal. renal scan shows uptake without excretion. some asymmetry in the kidney function. etiology of the SHREYA is not clear. Consider allergy versus infection? She did have pyuria but her cultures were negative. She has been on antibiotics. Dr. White comes back tomorrow. Consider biopsy? 3. The patient has hypertension. She is currently on Amlodipine. Will continue this 1 more day and see how blood pressure runs. It dipped into the 130s yesterday afternoon 4. The patient has diabetes. He is on Accu-Cheks and insulin. This is being managed by the hospitalists. 5. The patient has pyuria. This is being covered by her antibiotics. She also intermittently straight cath so could have some colonization in the bladder as well. 6. The patient's sodium level is slightly low the. This might be due to her high sugar. Will follow this along. Subjective Date/time seen: 10/19/21 11:38 Interval history: Patient feels okay. no shortness of breath. Exam Narrative: WDWN in NAD skin no rash head ncat lungs clear bilaterally cor reg no rub or gallop abd BS+ nontender and soft ext 1+ Bilateral edema. Bandage on right foot Objective Data Vital Signs Vital Signs: Vital Signs - 24 hr 10/18/21 14:00 10/18/21 20:34 10/19/21 04:31 Temperature 36.8 C 36.3 C L 36.6 C Pulse Rate 81 89 80 Respiratory Rate 18 18 16 Blood Pressure 134/83 162/86 H 146/85 H Pulse Oximetry 100 97 99 Oxygen Delivery 10/19/21 08:00 Temperature Pulse Rate Respiratory Rate Blood Pressure Pulse Oximetry Oxygen Delivery Room Air Intake/Output Intake/Output: Intake & Output 10/16/21 10/17/21 10/18/21 10/19/21 23:59 23:59 23:59 23:59 Intake Total 2560 3700 3032 1640 Output Total 1350 1550 750 Balance 2560 2350 1482 890 Meds/Results Medications: Active Medications Generic Name Dose Route Start Last Admin Trade Name Alec PRN Reason Stop Dose Admin Acetaminophen 650 mg 10/10/21 00:03 10/13/21 15:38 Acetaminophen 325 Mg Tablet PO 650 mg Q4H PRN Administration Mild Pain (1-3) Or Fever Amlodipine Besylate 2.5 mg 10/17/21 16:15 10/19/21 08:44 Amlodipine Besylate 2.5 Mg Tablet PO 2.5 mg QAM SELMA Administration Apixaban 5 mg 10/10/21 09:00 10/19/21 08:44 Apixaban 5 Mg Tablet PO 5 mg Q12HR SELMA Administration Collagenase 1 applic 10/10/21 09:00 10/19/21 08:44 Collagenase Oint 30 Gm Tube TOPICAL 1 applic QAM SELMA Administration Dextrose 12.5 gm 10/14/21 10:58 Dextrose 50% 25 Gm/50 Ml Syringe IV PUSH PRN PRN Hypoglycemia Protocol Docusate Sodium 100 mg 10/18/21 08:55 10/18/21 12:42 Docusate Sodium 100 Mg Capsule PO 100 mg Q12H PRN Administration Constipation Famotidine 40 mg 10/10/21 09:00 10/19/21 08:44 Famotidine 20 Mg Tablet PO 40 mg DAILY SELMA Administration Ferrous Sulfate 324 mg 10/10/21 08:00 10/19/21 08:44 Ferrous Sulfate 324 Mg Tablet PO 324 mg DAILY@0800 SELMA Administration Glucagon 1 mg 10/14/21 10:58 Glucagon For Inj 1 Mg Vial IM PRN PRN Hypoglycemia Protocol Glucose 15 gm 10/14/21 10:58 10/17/21 08:38 Glucose Oral Gel 15 Gm Of Glucse In 37.5 Gm Tube PO 15 gm PRN PRN Administration Hypoglycemia Protocol Ceftriaxone Sodium 2 gm/ 100 mls @ 200 mls/hr 10/11/21 09:00 10/19/21 08:38 Sodium Chloride IVPB 11/03/21 10:00 20
[2021-10-19 12:23] LABS: Glucose Point of Care 123 mg/dl (65-105)
[2021-10-19 14:00] VITALS: BP 155/85; PULSE 88; RESP 18; TEMP 36.4; O2SAT 94
[2021-10-19 17:09] LABS: Glucose Point of Care 209 mg/dl (65-105)
[2021-10-19] MEDS: INSULIN ASPART (*BKC) 100 UNITS/ML SUB-Q (17:33)
[2021-10-19 20:14] VITALS: BP 153/83; PULSE 82; RESP 18; TEMP 36.1; O2SAT 97
[2021-10-19 21:15] LABS: Glucose Point of Care 201 mg/dl (65-105)
[2021-10-19] MEDS: INSULIN GLARGINE (*BKC) 100 UNITS/ML 25 UNITS SUB-Q (21:42)
[2021-10-19] MEDS: ERTAPENEM SODIUM 0.5 GM in SODIUM CHLORIDE 0.9% IV 50 ML IVPB (21:42)
[2021-10-20 01:55] LABS: Glucose Point of Care 138 mg/dl (65-105)
[2021-10-20 05:01] VITALS: BP 150/81; PULSE 79; RESP 16; TEMP 36.6; O2SAT 99
[2021-10-20 06:44] LABS: Basophils Absolute Auto 0.1 K/mm3 (0.0-0.1); Basophils Percent Auto 0.9 % (0.2-1.2); Eosinophils Absolute Auto 0.3 K/mm3 (0-0.3); Eosinophils Percent Auto 4.3 % (0-4.4); Hematocrit 24.9 % (37.0-47.0); Hemoglobin 7.7 g/dL (12.0-15.0); Immature Granulocyte Absolute 0.04 K/mm3 (0.00-0.031); Immature Granulocyte Percent A 0.6 % (0-0.5); Lymphocytes Percent Auto 22.9 % (18.3-44.2); Mean Corpuscular HGB Conc 30.9 g/dl (32-36); Mean Corpuscular Hemoglobin 27.4 pg (26-34); Mean Corpuscular Volume 88.6 fl (80-100); Mean Platelet Volume 9.2 fl (7.4-10.4); Monocytes Absolute Auto 0.5 K/mm3 (0.1-0.6); Monocytes Percent Auto 6.4 % (2.6-8.5); Neutrophils Absolute Auto 4.5 K/mm3 (1.3-6.7); Neutrophils Percent Auto 64.9 % (45.5-73.1); Platelet Count Result 289 k/mm3 (150-375); Red Blood Count 2.81 M/mm3 (4.2-5.4); Red Cell Distribution Width 16.3 % (11.5-14.5)
[2021-10-20] MEDS: CENTRAL LINE FLUSH 10 ML IV PUSH ×3 (06:48→22:00)
[2021-10-20 06:52] LABS: Anion Gap 7 mmol/L (8-16); Blood Urea Nitrogen 18 mg/dL (7-17); Calcium 7.5 mg/dL (8.4-10.2); Carbon Dioxide 23 mmol/L (22-30); Chloride 108 mmol/L (98-107); Estimated CRCL calculation 28 ml/min; Estimated Glomerular Filt Rate 21; Glucose 97 mg/dL (65-110); Potassium 3.7 mmol/L (3.4-5.0); Sodium 138 mmol/L (137-145)
[2021-10-20] MEDS: FERROUS SULFATE 324 MG TABLET PO (08:21)
[2021-10-20] MEDS: amLODIPine BESYLATE 2.5 MG TABLET PO (08:22)
[2021-10-20] MEDS: APIXABAN 5 MG TABLET PO ×2 (08:22→20:00)
[2021-10-20] MEDS: LINEZOLID 600 MG TABLET PO ×2 (08:22→20:00)
[2021-10-20] MEDS: FAMOTIDINE 20 MG TABLET 40 MG PO (08:22)
[2021-10-20 08:28] LABS: Glucose Point of Care 71 mg/dl (65-105)
[2021-10-20] MEDS: SODIUM CHLORIDE 0.9% IV 1,000 ML 75 ML IV CONT (12:11)
[2021-10-20] MEDS: COLLAGENASE OINT 30 GM TUBE 1 APPLIC TOPICAL (12:12)
[2021-10-20 12:24] LABS: Glucose Point of Care 97 mg/dl (65-105)
[2021-10-20 14:00] VITALS: BP 164/74; PULSE 90; RESP 16; TEMP 36.8; O2SAT 98
--- NOTE | 2021-10-20 15:29 | P.PNNP_ITS ---
Progress Note: A&P Assessment and Plan (1) SHREYA (acute kidney injury): Code(s): N17.9 - Acute kidney failure, unspecified Status: Acute Assessment and Plan: * etiology not clear * drug allergy (from antibiotics) versus infection itself(?) * evaluation to date: * FENA not prerenal but was on diuretics prior to admission * FE-urea barely pre-renal * renal scan with uptake without excretion and some assymetry in kidney function * would a renal biopsy be helpful(?) * she is at higher risk given her low H/H and infectious issues.... * creatinine remains elevated but does not appear to have worsened * follow trend for now (2) Stage 3b chronic kidney disease: Code(s): N18.32 - Chronic kidney disease, stage 3b Status: Chronic Assessment and Plan: * baseline creatinine is 1.4 with a GFR ~ 38 * likely due to diabetes and hypertension * noted to have nephrotic range proteinuria as well (3) Osteomyelitis: Qualifiers: Laterality: right Osteomyelitis location: foot Osteomyelitis type: unspecified type Qualified Code(s): M86.9 - Osteomyelitis, unspecified Code(s): M86.9 - Osteomyelitis, unspecified Status: Acute Assessment and Plan: * as noted by imaging studies * on IV antibiotics at this time * further surgical intervention?? (4) Anemia: Code(s): D64.9 - Anemia, unspecified Status: Acute Assessment and Plan: * likely due to combination of SHREYA, CKD, and acute infection * not a canidate for IV iron due to infection * consider empiric dosing of Epogen * follow trend of H/H (5) Hypertension: Code(s): I10 - Essential (primary) hypertension Status: Chronic Assessment and Plan: * BP slightly elevated by trend in the last 24 hours * would titrate amlodipine for now * follow trend of hemodynamics (6) Diabetes: Code(s): E11.9 - Type 2 diabetes mellitus without complications Status: Chronic Assessment and Plan: * follow accuchecks * glycemic control Will continue to follow. Subjective Date/time seen: 10/20/21 15:29 Chart reviewed - assuming care from Dr. Street; appears to be doing okay at the time of my visit; no acute issues/events overnight or earlier this AM; renal function is about the same (no better but no worse); no apparent distress voiced. Exam Narrative: General: WD/WN female in NAD Heart: normal S1 and S2; no rub Lungs: clear to auscultation Abdomen: soft, nontender, nondistended, positive bowel sounds Extremities: no cyanosis or clubbing; 1+ edema Skin: warm and intact; dressing present over right foot Objective Data Vital Signs Vital Signs: Vital Signs Temp Pulse Resp BP Pulse Ox O2 Del Method 10/20/21 14:00 36.8 C 90 16 164/74 H 98 10/20/21 08:00 Room Air 10/20/21 05:01 36.6 C 79 16 150/81 H 99 10/19/21 20:14 36.1 C L 82 18 153/83 H 97 Intake/Output Intake/Output: Intake & Output 10/17/21 10/18/21 10/19/21 10/20/21 23:59 23:59 23:59 23:59 Intake Total 3700 3032 3890 1690 Output Total 1350 1550 1950 700 Balance 2350 1482 1940 990 Meds/Results Medications: Active Medications Generic Name Dose R
--- NOTE | 2021-10-20 15:29 | PM.PNNEP ---
Progress Note: A&P Assessment and Plan (1) SHREYA (acute kidney injury): Code(s): N17.9 - Acute kidney failure, unspecified Status: Acute Assessment and Plan: etiology not clear drug allergy (from antibiotics) versus infection itself(?) evaluation to date: FENA not prerenal but was on diuretics prior to admission FE-urea barely pre-renal renal scan with uptake without excretion and some assymetry in kidney function would a renal biopsy be helpful(?) she is at higher risk given her low H/H and infectious issues.... creatinine remains elevated but does not appear to have worsened follow trend for now (2) Stage 3b chronic kidney disease: Code(s): N18.32 - Chronic kidney disease, stage 3b Status: Chronic Assessment and Plan: baseline creatinine is 1.4 with a GFR ~ 38 likely due to diabetes and hypertension noted to have nephrotic range proteinuria as well (3) Osteomyelitis: Qualifiers: Laterality: right Osteomyelitis location: foot Osteomyelitis type: unspecified type Qualified Code(s): M86.9 - Osteomyelitis, unspecified Code(s): M86.9 - Osteomyelitis, unspecified Status: Acute Assessment and Plan: as noted by imaging studies on IV antibiotics at this time further surgical intervention?? (4) Anemia: Code(s): D64.9 - Anemia, unspecified Status: Acute Assessment and Plan: likely due to combination of SHREYA, CKD, and acute infection not a canidate for IV iron due to infection consider empiric dosing of Epogen follow trend of H/H (5) Hypertension: Code(s): I10 - Essential (primary) hypertension Status: Chronic Assessment and Plan: BP slightly elevated by trend in the last 24 hours would titrate amlodipine for now follow trend of hemodynamics (6) Diabetes: Code(s): E11.9 - Type 2 diabetes mellitus without complications Status: Chronic Assessment and Plan: follow accuchecks glycemic control Will continue to follow. Subjective Date/time seen: 10/20/21 15:29 Chart reviewed - assuming care from Dr. Street; appears to be doing okay at the time of my visit; no acute issues/events overnight or earlier this AM; renal function is about the same (no better but no worse); no apparent distress voiced. Exam Narrative: General: WD/WN female in NAD Heart: normal S1 and S2; no rub Lungs: clear to auscultation Abdomen: soft, nontender, nondistended, positive bowel sounds Extremities: no cyanosis or clubbing; 1+ edema Skin: warm and intact; dressing present over right foot Objective Data Vital Signs Vital Signs: Vital Signs Temp Pulse Resp BP Pulse Ox O2 Del Method 10/20/21 14:00 36.8 C 90 16 164/74 H 98 10/20/21 08:00 Room Air 10/20/21 05:01 36.6 C 79 16 150/81 H 99 10/19/21 20:14 36.1 C L 82 18 153/83 H 97 Intake/Output Intake/Output: Intake & Output 10/17/21 10/18/21 10/19/21 10/20/21 23:59 23:59 23:59 23:59 Intake Total 3700 3032 3890 1690 Output Total 1350 1550 1950 700 Balance 2350 1482 1940 990 Meds/Results Medications: Active Medications Generic Name Dose Route Start Last Admin Trade Name Freq PRN Reason Stop Dose Admin Acetaminophen 650 mg 10/10/21 00:03 10/13/21 15:38 Acetaminophen 325 Mg Tablet PO 650 mg Q4H PRN Administration Mild Pain (1-3) Or Fever Amlodipine Besylate 2.5 mg 10/17/21 16:15 10/20/21 08:22 Amlodipine Besylate 2.5 Mg Tablet PO 2.5 mg QAM SELMA Administration Apixaban 5 mg 10/10/21 09:00 10/20/21 08:22 Apixaban 5 Mg Tablet PO 5 mg Q12HR SELMA Administration Collagenase 1 applic 10/10/21 09:00 10/20/21 12:12 Collagenase Oint 30 Gm Tube TOPICAL 1 applic QAM [facility] Administration Dextrose 12.5 gm 10/14/21 10:58 Dextrose 50% 25 Gm/50 Ml Syringe IV PUSH PRN PRN Hypoglycemia Protocol Docusate Sodium 100 mg
[2021-10-20 16:44] LABS: Glucose Point of Care 81 mg/dl (65-105)
--- NOTE | 2021-10-20 16:55 | PM.IMPN ---
Progress Note: A&P Assessment and Plan (1) Acute kidney injury superimposed on chronic kidney disease: Code(s): N17.9 - Acute kidney failure, unspecified; N18.9 - Chronic kidney disease, unspecified Status: Acute Assessment and Plan: Appreciate nephrology consultation, may have to discharge patient on linezolid to complete her course of antibiotics until November 11 Renal biopsy planned, unsure of etiology of SHREYA, off vanc and little improvement (2) Type 2 diabetes mellitus, uncontrolled, with renal complications: Status: Acute Assessment and Plan: resume home meds continue to monitor relatively controlled, a1c 11 10/03, under 200 consistently here (3) Diabetic neuropathy: Code(s): E11.40 - Type 2 diabetes mellitus with diabetic neuropathy, unspecified Status: Acute Assessment and Plan: unchanged, as above (4) Osteomyelitis: Qualifiers: Laterality: right Osteomyelitis location: foot Osteomyelitis type: unspecified type Qualified Code(s): M86.9 - Osteomyelitis, unspecified Code(s): M86.9 - Osteomyelitis, unspecified Status: Acute Assessment and Plan: PICC line in place vanc held d/t kidney injury, cont linezold repeat imaging shows progression or osteomyelitis, prior wound cx did show klebsiella ESBL so ertapenem was added to MRSA coverage for now, would recommend repeat imaging at end of 6 week course November 11, if that imaging shows improvement but not resolution, would add 6 weeks from today of ertapenem and d/c MRSA coverage vs surgical intervention (5) Neurogenic dysfunction of the urinary bladder: Code(s): N31.9 - Neuromuscular dysfunction of bladder, unspecified Status: Acute Assessment and Plan: patient self catheterizes Subjective Date/time seen: 10/20/21 16:55 Interval history: No change. No overnight events noted. No chest pain or shortness of breath. No nausea, vomiting or diarrhea. No fevers or chills. Review of Systems Review of Systems: 12 point review of systems was assessed and was negative except as noted in the HPI Exam Narrative: General: No acute distress, alert and oriented per baseline HEENT: Atraumatic, normocephalic, mucous membranes moist CV: Regular rate and rhythm, S1, S2 Lungs: Clear to auscultation bilaterally, no rales or crackles noted, no wheezes, good air entry Abdomen: Soft, nontender, nondistended Extremities: Normal to inspection Skin: No rashes noted, no lesions or wounds seen Psych: Euthymic, normal affect Objective Data Vital Signs Vital Signs: Vital Signs - 24 hr 10/19/21 20:14 10/20/21 05:01 10/20/21 08:00 Temperature 97 F L 97.8 F Pulse Rate 82 79 Respiratory Rate 18 16 Blood Pressure 153/83 H 150/81 H Pulse Oximetry 97 99 Oxygen Delivery Room Air 10/20/21 14:00 Temperature 98.2 F Pulse Rate 90 Respiratory Rate 16 Blood Pressure 164/74 H Pulse Oximetry 98 Oxygen Delivery Intake/Output Intake/Output: Intake & Output 10/17/21 10/18/21 10/19/21 10/20/21 23:59 23:59 23:59 23:59 Intake Total 3700 3032 3890 1690 Output Total 1350 1550 1950 700 Balance 2350 1482 1940 990 Meds/Results Medications: Active Medications Generic Name Dose Route Start Last Admin Trade Name Freq PRN Reason Stop Dose Admin Acetaminophen 650 mg 10/10/21 00:03 10/13/21 15:38 Acetaminophen 325 Mg Tablet PO 650 mg Q4H PRN Administration Mild Pain (1-3) Or Fever Amlodipine Besylate 2.5 mg 10/17/21 16:15 10/20/21 08:22 Amlodipine Besylate 2.5 Mg Tablet PO 2.5 mg QAM SELMA Administration Apixaban 5 mg 10/10/21 09:00 10/20/21 08:22 Apixaban 5 Mg Tablet PO 5 mg Q12HR SELMA Administration Collagenase 1 applic 10/10/21 09:00 10/20/21 12:12 Collagenase Oint 30 Gm Tube TOPICAL 1 applic QAM SELMA Administration Dextrose 12.5 gm 10/14/21 10:58 Dextrose 50% 25 Gm/50 Ml Syringe IV PUSH PRN NE
[2021-10-20] MEDS: ERTAPENEM SODIUM 0.5 GM in SODIUM CHLORIDE 0.9% IV 50 ML IVPB (20:01)
[2021-10-20] MEDS: INSULIN GLARGINE (*BKC) 100 UNITS/ML 25 UNITS SUB-Q (20:11)
[2021-10-20 20:38] LABS: Glucose Point of Care 139 mg/dl (65-105)
[2021-10-20 22:00] VITALS: PULSE 72; RESP 16; TEMP 36.4; O2SAT 98
[2021-10-21 01:15] LABS: Glucose Point of Care 59 mg/dl (65-105)
[2021-10-21 01:15] LABS: Glucose Point of Care 77 mg/dl (65-105)
[2021-10-21] MEDS: SODIUM CHLORIDE 0.9% IV 1,000 ML 75 ML IV CONT (02:35)
[2021-10-21 02:42] LABS: Glucose Point of Care 69 mg/dl (65-105)
[2021-10-21 03:18] LABS: Glucose Point of Care 69 mg/dl (65-105)
[2021-10-21 04:02] LABS: Glucose Point of Care 85 mg/dl (65-105)
[2021-10-21 05:46] VITALS: BP 110/60; PULSE 78; RESP 16; TEMP 36.3; O2SAT 99
[2021-10-21] MEDS: CENTRAL LINE FLUSH 10 ML IV PUSH ×2 (05:49→13:49)
[2021-10-21 05:56] LABS: Basophils Absolute Auto 0.1 K/mm3 (0.0-0.1); Eosinophils Absolute Auto 0.2 K/mm3 (0-0.3); Eosinophils Percent Auto 3.4 % (0-4.4); Hematocrit 25.7 % (37.0-47.0); Hemoglobin 7.8 g/dL (12.0-15.0); Immature Granulocyte Absolute 0.03 K/mm3 (0.00-0.031); Immature Granulocyte Percent A 0.5 % (0-0.5); Lymphocytes Absolute Auto 1.58 K/mm3 (0.9-3.2); Lymphocytes Percent Auto 25.3 % (18.3-44.2); Mean Corpuscular HGB Conc 30.4 g/dl (32-36); Mean Corpuscular Hemoglobin 27.2 pg (26-34); Mean Corpuscular Volume 89.5 fl (80-100); Mean Platelet Volume 9.1 fl (7.4-10.4); Monocytes Absolute Auto 0.4 K/mm3 (0.1-0.6); Monocytes Percent Auto 5.6 % (2.6-8.5); Neutrophils Percent Auto 64.2 % (45.5-73.1); Platelet Count Result 262 k/mm3 (150-375); Red Blood Count 2.87 M/mm3 (4.2-5.4); Red Cell Distribution Width 16.3 % (11.5-14.5); White Blood Count 6.3 K/mm3 (4.5-10.0)
[2021-10-21 06:06] LABS: Anion Gap 9 mmol/L (8-16); Blood Urea Nitrogen 16 mg/dL (7-17); Calcium 7.8 mg/dL (8.4-10.2); Carbon Dioxide 22 mmol/L (22-30); Chloride 107 mmol/L (98-107); Estimated CRCL calculation 27 ml/min; Estimated Glomerular Filt Rate 20; Glucose 87 mg/dL (65-110); Potassium 3.7 mmol/L (3.4-5.0); Sodium 138 mmol/L (137-145)
[2021-10-21] MEDS: LINEZOLID 600 MG TABLET PO (08:09)
[2021-10-21 08:10] LABS: Glucose Point of Care 61 mg/dl (65-105)
[2021-10-21] MEDS: amLODIPine BESYLATE 2.5 MG TABLET PO (08:10)
[2021-10-21] MEDS: FERROUS SULFATE 324 MG TABLET PO (08:10)
[2021-10-21] MEDS: APIXABAN 5 MG TABLET PO (08:10)
[2021-10-21] MEDS: FAMOTIDINE 20 MG TABLET 40 MG PO (08:11)
[2021-10-21] MEDS: COLLAGENASE OINT 30 GM TUBE 1 APPLIC TOPICAL (08:24)
[2021-10-21] MEDS: ONDANSETRON INJ 4 MG/2 ML VIAL IV PUSH (08:26)
--- NOTE | 2021-10-21 10:01 | P.PNNP_ITS ---
Progress Note: A&P Assessment and Plan (1) SHREYA (acute kidney injury): Code(s): N17.9 - Acute kidney failure, unspecified Status: Acute Assessment and Plan: * etiology not clear * drug allergy (from antibiotics) versus infection itself(?) * evaluation to date: * FENA not prerenal but was on diuretics prior to admission * FE-urea barely pre-renal * renal scan with uptake without excretion and some asymmetry in kidney function * would a renal biopsy be helpful(?) * she is at higher risk given her low H/H and infectious issues.... * creatinine remains elevated but does not appear to have worsened * it might be better to await recovery from #3 prior to doing an invasive procedure like a renal biopsy * follow trend for now (2) Stage 3b chronic kidney disease: Code(s): N18.32 - Chronic kidney disease, stage 3b Status: Chronic Assessment and Plan: * baseline creatinine is 1.4 with a GFR ~ 38 * likely due to diabetes and hypertension * noted to have nephrotic range proteinuria as well (3) Osteomyelitis: Qualifiers: Laterality: right Osteomyelitis location: foot Osteomyelitis type: unspecified type Qualified Code(s): M86.9 - Osteomyelitis, unspecified Code(s): M86.9 - Osteomyelitis, unspecified Status: Acute Assessment and Plan: * as noted by imaging studies * on IV antibiotics at this time * further surgical intervention?? (4) Anemia: Code(s): D64.9 - Anemia, unspecified Status: Acute Assessment and Plan: * likely due to combination of SHREYA, CKD, and acute infection * not a canidate for IV iron due to infection * consider empiric dosing of Epogen * follow trend of H/H (5) Hypertension: Code(s): I10 - Essential (primary) hypertension Status: Chronic Assessment and Plan: * BP better this AM * would titrate amlodipine as needed * follow trend of hemodynamics (6) Diabetes: Code(s): E11.9 - Type 2 diabetes mellitus without complications Status: Chronic Assessment and Plan: * follow accuchecks * glycemic control Will continue to follow. Subjective Date/time seen: 10/21/21 10:01 Continues to do relatively well; no apparent distress to report at the time of my visit; renal function remains about the same (no worse, not much better either); no events voiced overnight or earlier this morning. Exam Narrative: General: WD/WN female in NAD Heart: normal S1 and S2; no rub Lungs: clear to auscultation Abdomen: soft, nontender, nondistended, positive bowel sounds Extremities: no cyanosis or clubbing; 1+ edema Skin: warm and intact; dressing present over right foot Objective Data Vital Signs Vital Signs: Vital Signs Temp Pulse Resp BP Pulse Ox O2 Del Method 10/21/21 08:00 Room Air 10/21/21 05:46 36.3 C L 78 16 110/60 99 10/20/21 22:00 36.4 C 72 16 98 10/20/21 20:00 Room Air 10/20/21 14:00 36.8 C 90 16 164/74 H 98 Intake/Output Intake/Output: Intake & Output 10/18/21 10/19/21 10/20/21 10/21/21 23:59 23:59 23:59 23:59 Intake Total 3032 3890 1910 1240 Output Total 1550 1950 1400 0 Balance 1482 3012 383 3047 Meds/Results Medications:
--- NOTE | 2021-10-21 10:01 | PM.PNNEP ---
Progress Note: A&P Assessment and Plan (1) SHREYA (acute kidney injury): Code(s): N17.9 - Acute kidney failure, unspecified Status: Acute Assessment and Plan: etiology not clear drug allergy (from antibiotics) versus infection itself(?) evaluation to date: FENA not prerenal but was on diuretics prior to admission FE-urea barely pre-renal renal scan with uptake without excretion and some asymmetry in kidney function would a renal biopsy be helpful(?) she is at higher risk given her low H/H and infectious issues.... creatinine remains elevated but does not appear to have worsened it might be better to await recovery from #3 prior to doing an invasive procedure like a renal biopsy follow trend for now (2) Stage 3b chronic kidney disease: Code(s): N18.32 - Chronic kidney disease, stage 3b Status: Chronic Assessment and Plan: baseline creatinine is 1.4 with a GFR ~ 38 likely due to diabetes and hypertension noted to have nephrotic range proteinuria as well (3) Osteomyelitis: Qualifiers: Laterality: right Osteomyelitis location: foot Osteomyelitis type: unspecified type Qualified Code(s): M86.9 - Osteomyelitis, unspecified Code(s): M86.9 - Osteomyelitis, unspecified Status: Acute Assessment and Plan: as noted by imaging studies on IV antibiotics at this time further surgical intervention?? (4) Anemia: Code(s): D64.9 - Anemia, unspecified Status: Acute Assessment and Plan: likely due to combination of SHREYA, CKD, and acute infection not a canidate for IV iron due to infection consider empiric dosing of Epogen follow trend of H/H (5) Hypertension: Code(s): I10 - Essential (primary) hypertension Status: Chronic Assessment and Plan: BP better this AM would titrate amlodipine as needed follow trend of hemodynamics (6) Diabetes: Code(s): E11.9 - Type 2 diabetes mellitus without complications Status: Chronic Assessment and Plan: follow accuchecks glycemic control Will continue to follow. Subjective Date/time seen: 10/21/21 10:01 Continues to do relatively well; no apparent distress to report at the time of my visit; renal function remains about the same (no worse, not much better either); no events voiced overnight or earlier this morning. Exam Narrative: General: WD/WN female in NAD Heart: normal S1 and S2; no rub Lungs: clear to auscultation Abdomen: soft, nontender, nondistended, positive bowel sounds Extremities: no cyanosis or clubbing; 1+ edema Skin: warm and intact; dressing present over right foot Objective Data Vital Signs Vital Signs: Vital Signs Temp Pulse Resp BP Pulse Ox O2 Del Method 10/21/21 08:00 Room Air 10/21/21 05:46 36.3 C L 78 16 110/60 99 10/20/21 22:00 36.4 C 72 16 98 10/20/21 20:00 Room Air 10/20/21 14:00 36.8 C 90 16 164/74 H 98 Intake/Output Intake/Output: Intake & Output 10/18/21 10/19/21 10/20/21 10/21/21 23:59 23:59 23:59 23:59 Intake Total 3032 3890 1910 1240 Output Total 1550 1950 1400 0 Balance 1482 6202 287 0429 Meds/Results Medications: Active Medications Generic Name Dose Route Start Last Admin Trade Name Abdiq PRN Reason Stop Dose Admin Acetaminophen 650 mg 10/10/21 00:03 10/13/21 15:38 Acetaminophen 325 Mg Tablet PO 650 mg Q4H PRN Administration Mild Pain (1-3) Or Fever Amlodipine Besylate 2.5 mg 10/17/21 16:15 10/21/21 08:10 Amlodipine Besylate 2.5 Mg Tablet PO 2.5 mg QAM SELMA Administration Apixaban 5 mg 10/10/21 09:00 10/21/21 08:10 Apixaban 5 Mg Tablet PO 5 mg Q12HR SELMA Administration Collagenase 1 applic 10/10/21 09:00 10/21/21 08:24 Collagenase Oint 30 Gm Tube TOPICAL 1 applic QAM SELMA Administration Dextrose 12.5 gm 10/14/21 10:58 Dextrose 50% 25 Gm/50 Ml Syringe IV PUSH PRN NC
--- NOTE | 2021-10-21 12:14 | PM.DS ---
DS: Admitting Diagnosis Discharge Date October 21, 2021 Admitting Diagnosis Hypokalemia, acute kidney injury DS: Discharge Diagnosis Discharge Diagnosis (1) Acute kidney injury superimposed on chronic kidney disease: Code(s): N17.9 - Acute kidney failure, unspecified; N18.9 - Chronic kidney disease, unspecified Status: Acute Assessment and Plan: Appreciate nephrology consultation, may have to discharge patient on linezolid to complete her course of antibiotics until November 11 Renal biopsy planned, unsure of etiology of SHREYA, off vanc and little improvement Renal biopsy deferred to possible outpatient per nephrology, creatinine remains stable (2) Type 2 diabetes mellitus, uncontrolled, with renal complications: Status: Acute Assessment and Plan: resume home meds continue to monitor relatively controlled, a1c 11 10/03, under 200 consistently here (3) Diabetic neuropathy: Code(s): E11.40 - Type 2 diabetes mellitus with diabetic neuropathy, unspecified Status: Acute Assessment and Plan: unchanged, as above (4) Osteomyelitis: Qualifiers: Laterality: right Osteomyelitis location: foot Osteomyelitis type: unspecified type Qualified Code(s): M86.9 - Osteomyelitis, unspecified Code(s): M86.9 - Osteomyelitis, unspecified Status: Acute Assessment and Plan: PICC line in place vanc held d/t kidney injury, cont linezold repeat imaging shows progression or osteomyelitis, prior wound cx did show klebsiella ESBL so ertapenem was added to MRSA coverage for now, would recommend repeat imaging at end of 6 week course November 11, if that imaging shows improvement but not resolution, would add 6 weeks from today of ertapenem and d/c MRSA coverage vs surgical intervention (5) Neurogenic dysfunction of the urinary bladder: Code(s): N31.9 - Neuromuscular dysfunction of bladder, unspecified Status: Acute Assessment and Plan: patient self catheterizes DS: Summary Hospital Course Hospital Course: 66-year-old female with past medical history significant for insulin-dependent diabetes mellitus type 2, neurogenic bladder with self catheterization, paroxysmal atrial fibrillation, diabetes with neuropathy and nephropathy as well as coronary disease is presenting with osteomyelitis of right 4th and 5th toes diagnosed in September of 2021. At that time, she was discharged on vancomycin Rocephin via PICC line for 6 week course as well as outpatient podiatry management. She was found to have hypokalemia and acute kidney injury thought to be secondary to vancomycin. Therefore, she was switched to linezolid. Nephrology was consulted. Creatinine did not worsen nor did improve. IV fluids were administered with little benefit. Imaging of her foot did show progression of the osteomyelitis. Rocephin was discontinued in favor of ertapenem. These antibiotics will be continued until November 11. She was discharged in stable condition with close outpatient follow-up by Nephrology he will be monitoring her kidney function and have a possible renal biopsy planned as well as Podiatry he plans on debriding the wound and possible further amputation. Time Spent with Patient Time attestation: Total time spent providing and/or coordinating discharge services: Exam Narrative: General: No acute distress, alert and oriented per baseline HEENT: Atraumatic, normocephalic, mucous membranes moist CV: Regular rate and rhythm, S1, S2 Lungs: Clear to auscultation bilaterally, no rales or crackles noted, no wheezes, good air entry Abdomen: Soft, nontender, nondistended Extremities: Normal to inspection Skin: No rashes noted, no lesions or wounds seen Psych: Euthymic, normal affect DS: Data Data Completed and Pending Labs on day of discharge: Labs from last 24 hours 10/21/21 10/21/21 10/21/21 08:05 05:44 05:44 WBC 6.3 RBC 2.87 L Hgb 7.8 L Hct 25.7 L
[2021-10-21 12:18] LABS: Glucose Point of Care 111 mg/dl (65-105)
[2021-10-21 14:38] VITALS: BP 155/81; PULSE 87; RESP 18; TEMP 36.3; O2SAT 92
--- NOTE | 2021-10-21 16:30 | PC.NURSE ---
Pt verbalizes understanding of discharge instructions. Daughter to pick her up in family vehicle.
== END 2021-10-21 16:45 | disposition home health service (06) | DRG 683 ==
LOC: ANHED 18:06 → ANH3MED 20:47
PROVIDERS: Chiropractor; Emergency Medicine; Internal Medicine; Internal Medicine Nephrology; Physician Assistant; Surgery; Admitting Provider Internal Medicine; Emergency Provider Emergency Medicine; PCP Physician Assistant; Visit Provider Student in an Organized Health Care Education/Training Program
DX: N17.8 Other acute kidney failure (principal); L97.516 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 without evidence of necrosis; M86.9 Osteomyelitis, unspecified; N14.1 Nephropathy induced by other drugs, medicaments and biological substances; E87.6 Hypokalemia; T36.8X5A Adverse effect of other systemic antibiotics, initial encounter; I12.9 Hypertensive chronic kidney disease with stage 1 through stage 4 chronic kidney disease, or unspecified chronic kidney disease; N18.32 Chronic kidney disease, stage 3b; E11.22 Type 2 diabetes mellitus with diabetic chronic kidney disease; E11.40 Type 2 diabetes mellitus with diabetic neuropathy, unspecified; E11.621 Type 2 diabetes mellitus with foot ulcer; E78.5 Hyperlipidemia, unspecified; I25.10 Atherosclerotic heart disease of native coronary artery without angina pectoris; I48.0 Paroxysmal atrial fibrillation; D64.9 Anemia, unspecified; N31.9 Neuromuscular dysfunction of bladder, unspecified; B96.1 Klebsiella pneumoniae [K. pneumoniae] as the cause of diseases classified elsewhere; R33.9 Retention of urine, unspecified; Z20.822 Contact with and (suspected) exposure to COVID-19; Z79.01 Long term (current) use of anticoagulants; Z79.4 Long term (current) use of insulin; Z95.1 Presence of aortocoronary bypass graft; Z87.891 Personal history of nicotine dependence; Z89.421 Acquired absence of other right toe(s); Z90.710 Acquired absence of both cervix and uterus
CPT/HCPCS: 36415; 73700; 76775; 78707; 80048; 80053; 80069; 80202; 81001; 82550; 82565; 82570; 82948; 83735; 84132; 84156; 84300; 84540; 85025; 85027; 87040; 87070; 87077; 87086; 87186; 87205; 93005; 96361; 96365; 96374; 96375; 99285; A9270; A9562; C9803; G0378; J0696; J1335; J1815; J2405; J3370; J7030; U0003; U0005

== ENCOUNTER 2021-10-27 15:57 | Emergency (ER) | payer MEDICARE, SELFPAY ==
--- NOTE | ~2021-10-27 | XR_ITS ---
XR chest 1V portable DATE: 10/27/2021 17:51 INDICATION: Evaluation of abnormally functioning PICC line TECHNIQUE: Portable upright AP chest on 10/27/2021 at 1746 hours COMPARISON: 10/09/2021 portable AP chest at 1829 hours FINDINGS: Right upper extremity PIC catheter tip overlies the upper right atrium. There is pulmonary vascular congestion and redistribution, prominence of the minor fissure as well as pulmonary interstitium and small pleural effusions. There are bibasilar infiltrates and/or atelectas is. Heart size appears within normal range. Included skeletal structures are unremarkable. IMPRESSION: Congestive changes and bibasilar infiltrate and/atelectasis since 10/09/2021 Reviewed, dictated and finalized at location A.
[2021-10-27 16:33] VITALS: BP 153/81; PULSE 83; RESP 18; TEMP 36.4; O2SAT 100
[2021-10-27 20:03] LABS: Basophils Absolute Auto 0.1 K/mm3 (0.0-0.1); Basophils Percent Auto 0.6 % (0.2-1.2); Eosinophils Absolute Auto 0.4 K/mm3 (0-0.3); Eosinophils Percent Auto 3.3 % (0-4.4); Hematocrit 25.5 % (37.0-47.0); Hemoglobin 7.9 g/dL (12.0-15.0); Immature Granulocyte Absolute 0.09 K/mm3 (0.00-0.031); Immature Granulocyte Percent A 0.8 % (0-0.5); Lymphocytes Percent Auto 23.5 % (18.3-44.2); Mean Corpuscular Hemoglobin 26.8 pg (26-34); Mean Corpuscular Volume 86.4 fl (80-100); Mean Platelet Volume 10.6 fl (7.4-10.4); Monocytes Absolute Auto 0.9 K/mm3 (0.1-0.6); Monocytes Percent Auto 8.3 % (2.6-8.5); Neutrophils Percent Auto 63.5 % (45.5-73.1); Platelet Count Result 154 k/mm3 (150-375); Red Blood Count 2.95 M/mm3 (4.2-5.4); Red Cell Distribution Width 15.8 % (11.5-14.5); White Blood Count 11.1 K/mm3 (4.5-10.0)
[2021-10-27] MEDS: ALTEPLASE 2 MG VIAL (CATHFLO) IV PUSH (20:07)
[2021-10-27 20:13] LABS: Anion Gap 6 mmol/L (8-16); Blood Urea Nitrogen 16 mg/dL (7-17); Calcium 7.8 mg/dL (8.4-10.2); Carbon Dioxide 27 mmol/L (22-30); Chloride 105 mmol/L (98-107); Estimated CRCL calculation 30 ml/min; Estimated Glomerular Filt Rate 22; Glucose 205 mg/dL (65-110); Potassium 3.3 mmol/L (3.4-5.0); Sodium 138 mmol/L (137-145)
[2021-10-27 20:22] LABS: NT Pro B Type Natriuretic Pept 7190 pg/mL (5-100)
--- NOTE | 2021-10-27 20:37 | PC.NURSE ---
2030-WITHDREW 6 CC OF BLOOD FROM BLOCKED PICC LINE WITHOUT DIFFICULTY. LINE IRRIGATED WITH 10 CC OF NORMAL SALINE WITH DIFFICULTY. PATIENT DENIES ANY PAIN AT PICC LINE SITE. UPDATE TO PROVIDER.
[2021-10-27 20:43] VITALS: BP 192/97; PULSE 70; RESP 20; O2SAT 100
--- NOTE | 2021-10-27 20:54 | ED.GENADULT ---
HPI - General Adult General Chief complaint: Unspecified Stated complaint: picc line clogged according to home health Time Seen by Provider: 10/27/21 17:34 History of Present Illness HPI narrative: Patient is a 66-year-old female who presents ER with concerns of complications with her PICC line. One of the PICC line ports is not flushing. This started 2 days ago and her home health nurse recommended she come in today. She is still able to receive IV antibiotics through the other line. She has no new swelling or pain in the affected arm. No chest pain or chest pressure or difficulty breathing. She does note some chronic edema to her legs that has been there since being discharged from the hospital. She was admitted to the hospital for a wound of her toe and underwent amputation and had subsequent osteomyelitis of the metatarsals. Related Data Home Medications Medication Instructions Recorded Confirmed apixaban 5 mg tablet (Eliquis) 5 mg PO BID 09/21/21 10/09/21 insulin degludec 100 unit/mL (3 32 unit subcut HS 09/22/21 10/09/21 mL) subcutaneous pen (Tresiba FlexTouch U-100 insulin) Allergies Allergy/AdvReac Type Severity Reaction Status Date / Time No Known Allergies Allergy Unknown Verified 10/09/21 18:27 Review of Systems Review of Systems: All systems reviewed & are unremarkable except as noted in HPI and below Constitutional: Constitutional: Denies chills, Denies fever(s) and Denies frequent falls Cardiovascular: Cardiovascular: Denies chest pain, Denies radiating jaw, neck or arm pain and Denies palpitations Respiratory: Respiratory: Denies chest congestion, Denies cough and Denies dyspnea Comments: Denies orthopnea Gastrointestinal: Gastrointestinal: Denies abdominal pain, Denies nausea and Denies vomiting Musculoskeletal: Musculoskeletal: Denies myalgias, Denies arthralgias and Denies joint swelling Comments: Leg edema PMFSH Past Medical History Medical History Chronic kidney disease Coronary artery disease Diabetes type 2, controlled Diabetic foot ulcer Diabetic neuropathy Hyperlipidemia Hypertension Osteomyelitis Paroxysmal atrial fibrillation Urinary retention Surgical History Surgical History H/O: hysterectomy S/P CABG (coronary artery bypass graft) Family History Family History Sibling Thymus cancer Diabetes mellitus All 4 siblings Lung cancer, lower lobe Melanoma Lymph edema Mother Family history of emphysema Father Acute myocardial infarction Social History Social History Smoking packs per day: 0.5 Smoking cigarettes per day: 10.0 Years smoked: 30 Smoking pack-years: 15.00 Smoking status: Never smoker Tobacco type: cigarettes Second hand tobacco smoke exposure: Yes ( smokes) Alcohol intake: former Substance use: never Substance use type: does not use Spiritual care concerns: No Exam Narrative: GENERAL: Well-appearing, obese, and in no acute distress. HEAD: Normocephalic, atraumatic. EYES: PERRL and EOMI. CHEST: Clear to auscultation. No respiratory distress. HEART: Regular rate and rhythm. Normal peripheral pulses. EXTREMITIES: Normal range of motion. 2+ edema. Pain to the right foot where she had her amputation. SKIN: Warm, dry, no rash. NEURO: Alert and oriented x3. PSYCH: Normal mood and affect. Course Course Emergency Course: Patient informed of results. Blood pressure is gone up but she reports its due to being nervous. She is not currently taking blood pressure medication. Discussed with her that there is signs of volume overload that could be related congestive heart failure. She does have a mounter [employer] that she sees. She has had open heart surgery in the past. She does not wish to st
[2021-10-27] MEDS: FUROSEMIDE INJ 40 MG/4 ML VIAL 20 MG IV PUSH (21:38)
[2021-10-27] MEDS: POTASSIUM CHLORIDE 20 MEQ TABLET PO (21:38)
== END 2021-10-27 22:11 | disposition home or self-care (01) ==
PROVIDERS: Emergency Provider Emergency Medicine; PCP Physician Assistant
DX: T82.594A Other mechanical complication of infusion catheter, initial encounter (principal); E87.70 Fluid overload, unspecified; I12.9 Hypertensive chronic kidney disease with stage 1 through stage 4 chronic kidney disease, or unspecified chronic kidney disease; E11.22 Type 2 diabetes mellitus with diabetic chronic kidney disease; N18.9 Chronic kidney disease, unspecified; I25.10 Atherosclerotic heart disease of native coronary artery without angina pectoris; I48.0 Paroxysmal atrial fibrillation; E78.5 Hyperlipidemia, unspecified; R60.0 Localized edema; Z95.1 Presence of aortocoronary bypass graft; Z79.4 Long term (current) use of insulin; Z79.01 Long term (current) use of anticoagulants; Z90.710 Acquired absence of both cervix and uterus; F17.210 Nicotine dependence, cigarettes, uncomplicated; Y84.8 Other medical procedures as the cause of abnormal reaction of the patient, or of later complication, without mention of misadventure at the time of the procedure; Z89.429 Acquired absence of other toe(s), unspecified side
CPT/HCPCS: 36415; 71045; 80048; 83880; 85025; 96374; 96375; 99284; A9270; J1940; J2997

== ENCOUNTER 2021-11-03 17:46 | Outpatient (RCR) | payer MEDICARE, SELFPAY ==
[2021-10-27 12:33] LABS: Anion Gap 8 mmol/L (8-16); Blood Urea Nitrogen 17 mg/dL (7-17); Calcium 7.7 mg/dL (8.4-10.2); Carbon Dioxide 27 mmol/L (22-30); Chloride 105 mmol/L (98-107); Estimated Glomerular Filt Rate 21; Glucose 152 mg/dL (65-110); Potassium 3.3 mmol/L (3.4-5.0); Sodium 140 mmol/L (137-145)
[2021-11-03 18:01] LABS: Anion Gap 6 mmol/L (8-16); Blood Urea Nitrogen 21 mg/dL (7-17); Carbon Dioxide 27 mmol/L (22-30); Chloride 103 mmol/L (98-107); Estimated Glomerular Filt Rate 25; Potassium 3.8 mmol/L (3.4-5.0); Sodium 136 mmol/L (137-145)
[2021-11-03 18:02] LABS: Calcium 7.7 mg/dL (8.4-10.2); Glucose 255 mg/dL (65-110)
== END 2022-01-25 23:59 | disposition home or self-care (01) ==
LOC: ANHLAB 17:46
PROVIDERS: PCP Physician Assistant; Visit Provider Physician Assistant
DX: E11.621 Type 2 diabetes mellitus with foot ulcer (principal); L97.514 Non-pressure chronic ulcer of other part of right foot with necrosis of bone; M86.171 Other acute osteomyelitis, right ankle and foot
CPT/HCPCS: 36415; 80048

== ENCOUNTER 2021-11-10 11:49 | Outpatient (NON) | payer MEDICARE, SELFPAY ==
[2021-11-10 12:31] LABS: Anion Gap 3 mmol/L (8-16); Blood Urea Nitrogen 16 mg/dL (7-17); Calcium 7.5 mg/dL (8.4-10.2); Carbon Dioxide 27 mmol/L (22-30); Chloride 102 mmol/L (98-107); Estimated Glomerular Filt Rate 24; Glucose 283 mg/dL (65-110); Potassium 3.4 mmol/L (3.4-5.0); Sodium 132 mmol/L (137-145)
== END 2021-11-10 11:50 | disposition home or self-care (01) ==
LOC: HOME HLTH 11:53
PROVIDERS: PCP Physician Assistant; Visit Provider Physician Assistant
DX: Z45.2 Encounter for adjustment and management of vascular access device (principal); M86.171 Other acute osteomyelitis, right ankle and foot; E11.621 Type 2 diabetes mellitus with foot ulcer; L97.514 Non-pressure chronic ulcer of other part of right foot with necrosis of bone
CPT/HCPCS: 80048

== ENCOUNTER 2021-12-10 01:26 | Outpatient (CLI) | payer MEDICARE, SELFPAY ==
[2021-12-09 09:24] VITALS: BMI 34.4
--- NOTE | 2021-12-09 09:28 | PC.NURSE ---
Pre Radiology instructions Report to the Outpatient Waiting Room, entrance under the green pavilion located off [facility], at time __0730 on date ___12/10/21____. Procedure Time: . YOU MAY BE MONITORED AT HOSPITAL FOR UP TO 4 HOURS AFTER YOUR PROCEDURE. One visitor will be allowed to accompany the patient into the hospital. The visitor will be instructed to remain with patient at all times or leave the building due to restrictions. We will allow the visitor to come back to the postoperative area when patient is ready. NO children visitors allowed at this time. You and your visitor will be asked to self-screen and do not enter if you have any COVID symptoms. A mask is required within the hospital. Patients are to have no food or drink 6 hours prior to procedure time (00182 AM) Driving will be restricted after the procedure, you must have a person to drive you home. Labs will be drawn in preop area and once reviewed, you will be taken to radiology area for procedure. When the procedure is completed, you will be taken to outpatient where you will be monitored for several hours. You may have one visitor in this area. Other than holding anti-coagulants, patient may take other medication(s) as scheduled. Prior to your appointment date patients are instructed to hold anti-coagulants after discussing with ordering provider to stop. If unable to discontinue anti-coagulants please notify radiologist. No aspirin or warfarin (Coumadin) for 7 days prior to the procedure. No clopidogrel (Plavix), ticagrelor (Brilinta), prasugrel (Effient) or dabigatran (Pradaxa) for 5 days prior to the procedure. No rivaroxaban (Xarelto), apixaban (Eliquis), dipyridamole (Aggrenox or Persantine) or cilostazol (Pletal) for 2 days prior to the procedure. Medications to discontinue per physician: ELIQUIS Date to take last dose: __12/04/21 PER PT Please leave all valuables, including medications, at home the day of procedure. The hospital will not accept responsibility for valuables. Wear comfortable, loose fitting clothing. Follow any additional instructions given to you from ordering provider. Telephone instructions given to ___PT and asked if any additional questions and then verbalized understanding. Patient advised to call scheduling provider office or registration scheduling [phone] if any additional questions.
[2021-12-10] VITALS (12 sets, daily range): BP systolic 152–176; BP diastolic 79–96; PULSE 81–94; RESP 14–16; TEMP 36.2; O2SAT 94–100
--- NOTE | ~2021-12-10 | US_ITS ---
EXAMINATION: US biopsy renal DATE: 12/10/2021 09:54 INDICATION: Chronic kidney disease stage IV. TECHNIQUE: The procedure including the risks, benefits, and alternatives was discussed with the patie nt. Risks discussed included bleeding and infection. The patient understood the risks and agreed to p roceed. A timeout was performed to verify the patient's name, date of , and procedure to be p erformed. The skin overlying the left kidney was prepped and draped in usual sterile fashion. Anest hetic was administered with 1% lidocaine subcutaneously. An 18 gauge core biopsy needle was then use d to obtain 4 core biopsy specimens under continuous sonographic guidance. The entry site was cleaned and dressed. There were no immediate complications. FINDINGS: Ultrasound images demonstrate the needle in the kidney. IMPRESSION: 1. Ultrasound-guided random left kidney core needle biopsy. Reviewed, dictated and finalized at location A.
[2021-12-10] MEDS: SODIUM CHLORIDE 0.9% IV 1,000 ML 30 ML IV CONT (08:20)
[2021-12-10 08:26] LABS: Glucose Point of Care 266 mg/dl (65-105)
[2021-12-10 08:27] LABS: Platelet Count Result 347 k/mm3 (150-375)
[2021-12-10 08:46] LABS: INR 1.1; Prothrombin Time 13.3 Seconds (11.1-14.7)
--- NOTE | 2021-12-10 10:32 | SUR.PHASEII ---
1032- This RN checked patient's blood glucose and noted to be elevated at 270, notified patient Kylie of elevated BG. Per patient she ran out of insulin yesterday and plans to refill prescription this afternoon once discharged home. Patient stated she will resume home insulin regimen after discharge.
[2021-12-10 10:35] LABS: Glucose Point of Care 270 mg/dl (65-105)
== END 2021-12-10 13:50 | disposition home or self-care (01) ==
PROVIDERS: PCP Physician Assistant; Referring Provider Internal Medicine Nephrology; Visit Provider Radiology Diagnostic Radiology
PROC: (CPT 76942; principal; 2021-12-10 09:30)
DX: N18.4 Chronic kidney disease, stage 4 (severe) (principal); N17.9 Acute kidney failure, unspecified; Z51.81 Encounter for therapeutic drug level monitoring; Z79.899 Other long term (current) drug therapy
CPT/HCPCS: 36415; 50200; 76942; 82948; 85049; 85610; 88300; 88305; 88313; 88329; 88346; 88348; 88350; J7030

== ENCOUNTER 2022-02-27 20:39 | Emergency (ER) | payer MEDICARE, SELFPAY ==
[2022-02-27 20:49] VITALS: BP 176/86; PULSE 96; RESP 16; TEMP 36.8; O2SAT 100
[2022-02-27 22:00] LABS: Appearance Urine Slightly Cloudy (Clear); Bilirubin Urine Negative (Negative); Blood Urine 3+ (Negative); Glucose Urine UA 3+ mg/dL (Negative); Ketones Urine Negative (Negative); Leukocyte Esterase Ur Negative LEU/UL (Negative); Nitrate Urine Negative (Negative); Protein Urine 3+ mg/dL (Negative); Urobilinogen Urine 0.2 mg/dL (<2.0)
[2022-02-27 22:05] LABS: Bacteria Urine Trace /hpf; RBC Urine >75 /hpf (0-2); Squamous Epithelial Cell Urine Rare /hpf (Few); WBC Clumps Urine Present /HPF; WBC Urine >75 /hpf
[2022-02-27 22:06] LABS: Add Urine Microscopic? YES; Color Urine Light Red (Yellow)
--- NOTE | 2022-02-27 22:50 | ED.FEMALEGU ---
HPI - Female Genitourinary General Chief complaint: Urogenital-Female <Feli Mae PA-C - Last Filed: 02/28/22 00:38> Stated complaint: urinary tract infection <Feli Mae PA-C - Last Filed: 02/28/22 00:38> Time Seen by Provider: 02/27/22 21:37 <Feli Mae PA-C - Last Filed: 02/28/22 00:38> Source: patient <BROOKS Bonner Last Filed: 02/28/22 00:38> Mode of arrival: ambulatory <Feli Mae PA-C - Last Filed: 02/28/22 00:38> Limitations: no limitations <Feli Mae PA-C - Last Filed: 02/28/22 00:38> History of Present Illness HPI Narrative: This is a 66 year old female that presents to the ER for UTI symptoms. Reports she has intermittently had symptoms over the last week. Reports today the symptoms became more constant. She has been bladder pain and pressure. She self-caths 4 times daily for history of neurogenic bladder. Denies fever, or flank pain. <Feli Mae PA-C - Last Filed: 02/28/22 00:38> Related Data Home medications: Home Medications Medication Instructions Recorded Confirmed apixaban 5 mg tablet (Eliquis) 5 mg PO BID 09/21/21 12/09/21 insulin degludec 100 unit/mL (3 32 unit subcut HS 09/22/21 12/09/21 mL) subcutaneous pen (Tresiba FlexTouch U-100 insulin) atorvastatin 40 mg tablet 40 mg HS 12/09/21 12/09/21 cholecalciferol (vitamin D3) 50 50 mcg PO QAM 12/09/21 12/09/21 mcg (2,000 unit) tablet doxycycline hyclate 100 mg tablet 100 mg PO BID 12/09/21 12/09/21 hydrochlorothiazide 25 mg tablet 25 mg TID PRN ANEXITY 12/09/21 12/09/21 insulin aspart U-100 100 unit/mL 6 unit subcut TID 12/09/21 12/09/21 (3 mL) subcutaneous pen (Novolog Flexpen U-100 Insulin aspart) lisinopril 40 mg tablet 40 mg QAM 12/09/21 12/09/21 <Feli Mae PA-C - Last Filed: 02/28/22 00:38> Allergies/Adverse reactions: Allergies Allergy/AdvReac Type Severity Reaction Status Date / Time No Known Allergies Allergy Unknown Verified 12/10/21 07:49 <Feli Mae PA-C - Last Filed: 02/28/22 00:38> Review of Systems Review of Systems: CONSTITUTIONAL: Denies fever ENT: Denies rhinorrhea, congestion, sore throat CARDIOVASCULAR: Denies chest pain RESPIRATORY: Denies dyspnea. GASTROINTESTINAL: Reports abdominal pain, nausea, vomiting GENITOURINARY: Reports dysuria. Denies hematuria. SKIN: Denies rash MUSCULOSKELETAL: Denies back pain NEUROLOGIC: Denies weakness. PSYCHIATRIC: Denies anxiety <Feli Mae PA-C - Last Filed: 02/28/22 00:38> All systems reviewed & are unremarkable except as noted in HPI and below <Feli Mae PA-C - Last Filed: 02/28/22 00:38> [facility] Past Medical History Medical History: Medical History Chronic kidney disease Coronary artery disease Diabetes type 2, controlled Diabetic foot ulcer Diabetic neuropathy Hyperlipidemia Hypertension Osteomyelitis Paroxysmal atrial fibrillation Urinary retention <BROOKS Bonner Last Filed: 02/28/22 00:38> Surgical History Surgical History: Surgical History H/O: hysterectomy S/P CABG (coronary artery bypass graft) <BROOKS Bonner Last Filed: 02/28/22 00:38> Family History Family History: Family History Sibling Thymus cancer Diabetes mellitus All 4 siblings Lung cancer, lower lobe Melanoma Lymph edema Mother Family history of emphysema Father Acute myocardial infarction <BROOKS Bonner Last Filed: 02/28/22 00:38> Social History Social History: Social History Smoking packs per day: 0.5 Smoking cigarettes per day: 10.0 Years smoked: 30 Smoking pack-years: 15.00 Smoking status: Never smoker Tobacco type: cigarettes Second hand tobacco smoke exposu
[2022-02-27 23:21] LABS: Basophils Absolute Auto 0.1 K/mm3 (0.0-0.1); Basophils Percent Auto 0.4 % (0.2-1.2); Eosinophils Absolute Auto 0.1 K/mm3 (0-0.3); Eosinophils Percent Auto 0.4 % (0-4.4); Hematocrit 34.2 % (37.0-47.0); Immature Granulocyte Absolute 0.08 K/mm3 (0.00-0.031); Immature Granulocyte Percent A 0.6 % (0-0.5); Lymphocytes Absolute Auto 1.17 K/mm3 (0.9-3.2); Lymphocytes Percent Auto 8.3 % (18.3-44.2); Mean Corpuscular HGB Conc 32.2 g/dl (32-36); Mean Corpuscular Hemoglobin 27.4 pg (26-34); Mean Corpuscular Volume 85.1 fl (80-100); Mean Platelet Volume 10.6 fl (7.4-10.4); Monocytes Absolute Auto 0.5 K/mm3 (0.1-0.6); Monocytes Percent Auto 3.7 % (2.6-8.5); Neutrophils Absolute Auto 12.2 K/mm3 (1.3-6.7); Neutrophils Percent Auto 86.6 % (45.5-73.1); Platelet Count Result 294 k/mm3 (150-375); Red Blood Count 4.02 M/mm3 (4.2-5.4); Red Cell Distribution Width 14.5 % (11.5-14.5); White Blood Count 14.1 K/mm3 (4.5-10.0)
[2022-02-27 23:31] LABS: Anion Gap 4 mmol/L (8-16); Blood Urea Nitrogen 27 mg/dL (7-17); Calcium 8.9 mg/dL (8.4-10.2); Carbon Dioxide 24 mmol/L (22-30); Chloride 105 mmol/L (98-107); Estimated CRCL calculation 41 ml/min; Estimated Glomerular Filt Rate 32; Glucose 460 mg/dL (65-110); Sodium 133 mmol/L (137-145)
[2022-02-28] MEDS: PHENAZOPYRIDINE HCL 100 MG TABLET 200 MG PO (00:54)
[2022-02-28] MEDS: CEFDINIR 300 MG CAPSULE PO (00:55)
== END 2022-02-28 00:58 | disposition home or self-care (01) ==
PROVIDERS: Emergency Medicine; Physician Assistant; Emergency Provider Emergency Medicine; PCP Physician Assistant
DX: N39.0 Urinary tract infection, site not specified (principal); N31.9 Neuromuscular dysfunction of bladder, unspecified; E11.22 Type 2 diabetes mellitus with diabetic chronic kidney disease; I12.9 Hypertensive chronic kidney disease with stage 1 through stage 4 chronic kidney disease, or unspecified chronic kidney disease; N18.9 Chronic kidney disease, unspecified; I25.10 Atherosclerotic heart disease of native coronary artery without angina pectoris; E11.40 Type 2 diabetes mellitus with diabetic neuropathy, unspecified; I48.0 Paroxysmal atrial fibrillation; E78.5 Hyperlipidemia, unspecified; Z95.1 Presence of aortocoronary bypass graft; Z90.710 Acquired absence of both cervix and uterus; F17.210 Nicotine dependence, cigarettes, uncomplicated; Z79.01 Long term (current) use of anticoagulants; Z79.4 Long term (current) use of insulin
CPT/HCPCS: 36415; 80048; 81001; 85025; 87077; 87086; 87186; 99283; A9270

== ENCOUNTER 2022-03-27 13:12 | Outpatient (CLI) | payer MEDICARE, SELFPAY ==
[2022-03-27 13:46] LABS: Albumin Level 3.7 g/dL (3.5-5.1); Anion Gap 6 mmol/L (8-16); Blood Urea Nitrogen 33 mg/dL (7-17); Calcium 8.5 mg/dL (8.4-10.2); Carbon Dioxide 22 mmol/L (22-30); Chloride 107 mmol/L (98-107); Estimated Glomerular Filt Rate 35; Glucose 182 mg/dL (65-110); Phosphorus 4.8 mg/dL (2.5-4.5); Potassium 4.2 mmol/L (3.4-5.0); Sodium 135 mmol/L (137-145)
[2022-03-27 14:01] LABS: Creatinine Urine 35.8 mg/dL
[2022-03-27 14:33] LABS: Total Protein Urine Random 376 mg/dL
== END 2022-03-27 13:13 | disposition home or self-care (01) ==
PROVIDERS: PCP Physician Assistant; Visit Provider Internal Medicine Nephrology
DX: R80.8 Other proteinuria (principal); I12.9 Hypertensive chronic kidney disease with stage 1 through stage 4 chronic kidney disease, or unspecified chronic kidney disease; N18.4 Chronic kidney disease, stage 4 (severe); E11.29 Type 2 diabetes mellitus with other diabetic kidney complication
CPT/HCPCS: 36415; 80069; 82570; 84156

== ENCOUNTER 2022-04-17 14:13 | Inpatient (IN) | payer MEDICARE, SELFPAY ==
--- NOTE | ~2022-04-17 | XR_ITS ---
EXAMINATION: XR chest port-a-cath/central INDICATION: Central line placement TECHNIQUE: Portable AP chest at 1431 hours COMPARISON: 10/27/2021 FINDINGS: A right internal jugular catheter is been inserted which ends with its tip in the distal holland perior vena cava. The lungs are free of acute opacities. No pleural effusion or pneumothorax. Median sternotomy wires and mediastinal surgical clips are seen, likely from prior coronary artery bypass gr afting. IMPRESSION: 1. Right internal jugular catheter insertion. No pneumothorax. 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
[2022-04-17 14:15] VITALS: BP 180/82; PULSE 110; RESP 20; TEMP 36.3; O2SAT 100
--- NOTE | 2022-04-17 16:30 | PM.IMHP ---
H&P: HPI History of Present Illness Date/Time: 04/17/22 16:30 Chief Complaint: Multidrug resistant urinary tract infection. Narrative: This is a pleasant 66-year-old female with paroxysmal atrial fibrillation on chronic anticoagulation, coronary artery disease, hypertension, hyperlipidemia, hypothyroidism, chronic kidney disease, insulin-dependent diabetes, and neurogenic bladder for which she straight caths q.i.d. who presented to the emergency department at the direction of her primary care provider after a urine culture reportedly grew out multidrug resistant bacteria. Unfortunately we do not have a copy of said urine culture. She has had issues with recurrent urinary tract infections over the last several months and recently completed a course of levofloxacin. She continues to have symptoms of UTI including dysuria, pain with cathing, aching discomfort in the low back, and mild hematuria. She has not had fever, chills, or sweats. She also denies nausea and vomiting. She was afebrile on arrival to the emergency department with stable vital signs. WBC was 7.3. UA was nitrate and leukocyte esterase positive with greater than 75 WBC, WBC clumps, and 3+ bacteria. Review of Systems Review of Systems: Twelve systems were reviewed. No cold or flu symptoms. No sick contacts. She denies blurry vision, polydipsia, and polyuria. No diarrhea. Over the last several days she has noticed that her glucoses have been over 200 which is unusual for her, except when she has an infection. Except as documented, all other systems were reviewed and are negative. [facility] Past Medical History Medical History (Updated 04/17/22 @ 23:45 by Makayla Ham PA-C) Chronic anemia Chronic anticoagulation Coronary artery disease Diabetic neuropathy Hyperlipidemia Hypertension Insulin dependent type 2 diabetes mellitus Osteomyelitis Paroxysmal atrial fibrillation Stage 3b chronic kidney disease Urinary retention Surgical History Surgical History (Updated 04/17/22 @ 23:42 by Makayla Ham PA-C) History of amputation of toe History of coronary artery bypass graft History of hysterectomy Family History Family History Sibling Thymus cancer Diabetes mellitus All 4 siblings Lung cancer, lower lobe Melanoma Lymph edema Mother Family history of emphysema Father Acute myocardial infarction Social History Social History (Updated 04/17/22 @ 23:40 by Makayla Ham PA-C) Social History: Surrogate medical decision maker: Natan Marquez, spouse. Code status: Full code. Smoking packs per day: 0.5 Smoking cigarettes per day: 10.0 Years smoked: 30 Smoking pack-years: 15.00 Smoking status: Former smoker Tobacco type: cigarettes Second hand tobacco smoke exposure: Yes ( smokes) Smoking end date: 03/15/06 Alcohol intake: never Substance use: never Substance use type: does not use Lack of Transportation: No Lack of Food: Never True Current Housing: I Have Housing Concerned About Future Housing: No Difficulty Paying Gas/Electric Bills: No Difficulty Paying for Meds: No Currently Unemployed: No Education: High School Diploma/GED Difficulty w/ Childcare or Family Care: No Spiritual care concerns: No Meds Home Medications and Allergies Home Medications Medication Instructions Recorded Confirmed Type famotidine 40 mg tablet 40 mg PO DAILY #90 tabs 09/06/19 04/17/22 Rx apixaban 5 mg tablet (Eliquis) 5 mg PO BID 09/21/21 04/17/22 History insulin degludec 100 unit/mL (3 32 unit subcut HS 09/22/21 04/17/22 History mL) subcutaneous pen (Tresiba FlexTouch U-100 insulin) amlodipine 2.5 mg tablet 2.5 mg PO QAM 1 month #30 tabs 10/21/21 04/17/22 Rx atorvastatin 40 mg tablet 40 mg PO HS 12/09/21 04/17/22 History cholecalciferol (vitamin D3) 50 50 mcg PO QAM 12/09/21 04/17/22 History mcg (2,000 unit) tablet insulin
[2022-04-17 16:50] LABS: Appearance Urine Slightly Cloudy (Clear); Bilirubin Urine Negative (Negative); Blood Urine 3+ (Negative); Color Urine Yellow (Yellow); Glucose Urine UA 1+ mg/dL (Negative); Ketones Urine Negative (Negative); Leukocyte Esterase Ur 1+ LEU/UL (Negative); Nitrate Urine Positive (Negative); Protein Urine 3+ mg/dL (Negative); Urobilinogen Urine 0.2 mg/dL (<2.0)
[2022-04-17 16:59] LABS: Basophils Absolute Auto 0.1 K/mm3 (0.0-0.1); Basophils Percent Auto 0.8 % (0.2-1.2); Eosinophils Absolute Auto 0.2 K/mm3 (0-0.3); Eosinophils Percent Auto 3.3 % (0-4.4); Hematocrit 33.2 % (37.0-47.0); Hemoglobin 10.7 g/dL (12.0-15.0); Immature Granulocyte Absolute 0.02 K/mm3 (0.00-0.031); Immature Granulocyte Percent A 0.3 % (0-0.5); Lymphocytes Absolute Auto 1.99 K/mm3 (0.9-3.2); Lymphocytes Percent Auto 27.3 % (18.3-44.2); Mean Corpuscular HGB Conc 32.2 g/dl (32-36); Mean Corpuscular Hemoglobin 27.4 pg (26-34); Mean Corpuscular Volume 84.9 fl (80-100); Mean Platelet Volume 10.1 fl (7.4-10.4); Monocytes Absolute Auto 0.4 K/mm3 (0.1-0.6); Monocytes Percent Auto 5.1 % (2.6-8.5); Neutrophils Absolute Auto 4.6 K/mm3 (1.3-6.7); Neutrophils Percent Auto 63.2 % (45.5-73.1); Platelet Count Result 306 k/mm3 (150-375); Red Blood Count 3.91 M/mm3 (4.2-5.4); White Blood Count 7.3 K/mm3 (4.5-10.0)
[2022-04-17 17:00] LABS: Bacteria Urine 3+ /hpf; Mucus Urine Rare /lpf; RBC Urine >75 /hpf (0-2); Squamous Epithelial Cell Urine Occasional /hpf (Few); WBC Clumps Urine Present /HPF; WBC Urine >75 /hpf
[2022-04-17 17:10] LABS: Chloride 107 mmol/L (98-107)
[2022-04-17 17:12] LABS: Add Urine Microscopic? YES
[2022-04-17 17:15] LABS: Alanine Aminotransferase 19 U/L (6-35); Albumin Level 3.9 g/dL (3.5-5.1); Alkaline Phosphatase 130 U/L (38-126); Anion Gap 6 mmol/L (8-16); Aspartate Amino Transferase 21 U/L (14-36); Bilirubin,Total 0.5 mg/dL (0.2-1.3); Blood Urea Nitrogen 28 mg/dL (7-17); Calcium 8.9 mg/dL (8.4-10.2); Carbon Dioxide 21 mmol/L (22-30); Estimated CRCL calculation 43 ml/min; Estimated Glomerular Filt Rate 32; Glucose 195 mg/dL (65-110); Potassium 4.2 mmol/L (3.4-5.0); Sodium 134 mmol/L (137-145)
--- NOTE | 2022-04-17 17:41 | ED.GENADULT ---
HPI - General Adult General Chief complaint: Urogenital-Female Stated complaint: needs IV meds for UTI Time Seen by Provider: 04/17/22 15:33 History of Present Illness HPI narrative: Patient is a 66-year-old female who presents ER with multidrug-resistant UTI. She was sent here by her PCP. She has been having burning urination and has been on antibiotics for couple weeks. Just finished levofloxacin. She reports she had some suprapubic discomfort dysuria last night and took an Azo which seemed to help. No fevers chills or sweats. No flank pain Related Data Home Medications Medication Instructions Recorded Confirmed apixaban 5 mg tablet (Eliquis) 5 mg PO BID 09/21/21 03/30/22 insulin degludec 100 unit/mL (3 32 unit subcut HS 09/22/21 03/30/22 mL) subcutaneous pen (Tresiba FlexTouch U-100 insulin) atorvastatin 40 mg tablet 40 mg HS 12/09/21 03/30/22 cholecalciferol (vitamin D3) 50 50 mcg PO QAM 12/09/21 03/30/22 mcg (2,000 unit) tablet insulin aspart U-100 100 unit/mL 6 unit subcut TID 12/09/21 03/30/22 (3 mL) subcutaneous pen (Novolog FlexPen U-100 Insulin aspart) lisinopril 40 mg tablet 40 mg QAM 12/09/21 03/30/22 aspirin 81 mg tablet,delayed 81 mg PO DAILY 03/30/22 03/30/22 release hydroxyzine pamoate 50 mg capsule 50 mg PO TID 03/30/22 03/30/22 levothyroxine 125 mcg tablet 125 mcg PO DAILY 03/30/22 03/30/22 (Levo-T) Allergies Allergy/AdvReac Type Severity Reaction Status Date / Time No Known Allergies Allergy Unknown Verified 12/10/21 07:49 Review of Systems Review of Systems: All systems reviewed & are unremarkable except as noted in HPI and below Constitutional: Constitutional: Denies chills, Denies fatigue and Denies fever(s) ENT: Denies nasal congestion and Denies sore throat Cardiovascular: Cardiovascular: Denies chest pain, Denies rapid heart rate and Denies radiating jaw, neck or arm pain Respiratory: Respiratory: Denies cough and Denies dyspnea Gastrointestinal: Gastrointestinal: Denies abdominal pain, Denies nausea and Denies vomiting Genitourinary: Genitourinary: Denies hematuria, Reports nocturia, Reports dysuria and Denies flank pain PMFSH Past Medical History Medical History Chronic kidney disease Coronary artery disease Diabetes type 2, controlled Diabetic foot ulcer Diabetic neuropathy Hyperlipidemia Hypertension Osteomyelitis Paroxysmal atrial fibrillation Urinary retention Surgical History Surgical History H/O: hysterectomy S/P CABG (coronary artery bypass graft) Family History Family History Sibling Thymus cancer Diabetes mellitus All 4 siblings Lung cancer, lower lobe Melanoma Lymph edema Mother Family history of emphysema Father Acute myocardial infarction Social History Social History Smoking packs per day: 0.5 Smoking cigarettes per day: 10.0 Years smoked: 30 Smoking pack-years: 15.00 Smoking status: Never smoker Tobacco type: cigarettes Second hand tobacco smoke exposure: Yes ( smokes) Alcohol intake: former Substance use: never Substance use type: does not use Spiritual care concerns: No Exam Narrative: GENERAL: Well-appearing, well-nourished, and in no acute distress. HEAD: Normocephalic, atraumatic. ENT: Mucous membranes moist. CHEST: Clear to auscultation. No respiratory distress. HEART: Regular rate and rhythm. Normal peripheral pulses. ABDOMEN: Soft, nontender, nondistended. EXTREMITIES: Normal range of motion. No edema. SKIN: Warm, dry, no rash. NEURO: Alert and oriented x3. PSYCH: Normal mood and affect. Course Course Emergency Course: Admit to hospitalist service. Will start on ceftriaxone. Patient resting comfortably. Accepted by hospitalist. Vital Signs
[2022-04-17 18:24] VITALS: BP 149/77; PULSE 88; RESP 16; O2SAT 100
--- NOTE | 2022-04-17 18:38 | PC.NURSE ---
report given to Ana. Awaiting for return call from [facility] that room is clean.
[2022-04-17 18:49] LABS: Influenza A QL RT-PCR Negative (Negative); Influenza B QL RT-PCR Negative (Negative); SARS-CoV-2 RNA PCR Negative
[2022-04-17 19:38] VITALS: BMI 34.7
--- NOTE | 2022-04-17 19:53 | ADMGEN ---
This patient, Kylie Marquez, was admitted to [facility] Surg Room 321-01. Patient/family oriented to hospital policies and general routines including ID bracelet, bed and alarms, visiting hours, pain management, procedures, bathroom and other care routines, personal items, smoking policy, room service/diet, and visiting hours. Information on how to activate the Rapid Response Team has been discussed. Patient/Family are encouraged to report perceived risks to care and to ask questions if they do not understand what they are told or what they should do.
[2022-04-17 22:00] VITALS: BP 151/78; PULSE 88; RESP 18; TEMP 36.1; O2SAT 100
[2022-04-17 23:11] LABS: Glucose Point of Care 169 mg/dl (65-105)
[2022-04-18 02:12] LABS: Glucose Point of Care 115 mg/dl (65-105)
[2022-04-18] MEDS: LEVOTHYROXINE SODIUM 125 MCG TABLET PO (05:26)
[2022-04-18 06:00] VITALS: BP 125/59; PULSE 76; RESP 16; TEMP 36.1; O2SAT 99
[2022-04-18 06:59] LABS: Hematocrit 27.7 % (37.0-47.0); Hemoglobin 8.9 g/dL (12.0-15.0); Mean Corpuscular HGB Conc 32.1 g/dl (32-36); Mean Corpuscular Hemoglobin 27.9 pg (26-34); Mean Corpuscular Volume 86.8 fl (80-100); Mean Platelet Volume 10.4 fl (7.4-10.4); Platelet Count Result 254 k/mm3 (150-375); Red Blood Count 3.19 M/mm3 (4.2-5.4); Red Cell Distribution Width 14.9 % (11.5-14.5); White Blood Count 5.9 K/mm3 (4.5-10.0)
[2022-04-18 07:09] LABS: Anion Gap 6 mmol/L (8-16); Blood Urea Nitrogen 24 mg/dL (7-17); Calcium 8.1 mg/dL (8.4-10.2); Carbon Dioxide 18 mmol/L (22-30); Chloride 114 mmol/L (98-107); Estimated CRCL calculation 45 ml/min; Estimated Glomerular Filt Rate 35; Glucose 122 mg/dL (65-110); Potassium 3.8 mmol/L (3.4-5.0); Sodium 138 mmol/L (137-145)
[2022-04-18 07:59] LABS: Hemoglobin A1C 9.8 % (<5.7)
[2022-04-18 08:12] LABS: Glucose Point of Care 122 mg/dl (65-105)
[2022-04-18] MEDS: FAMOTIDINE 20 MG TABLET 40 MG PO (08:52)
[2022-04-18] MEDS: amLODIPine BESYLATE 2.5 MG TABLET PO (08:52)
[2022-04-18] MEDS: APIXABAN 5 MG TABLET PO ×2 (08:53→17:59)
[2022-04-18] MEDS: lisinopriL 20 MG TABLET 40 MG PO (08:53)
[2022-04-18] MEDS: INSULIN ASPART (*BKC) 100 UNITS/ML 6 UNITS SUB-Q ×3 (08:53→17:59)
[2022-04-18] MEDS: ASPIRIN 81 MG ENTERIC TABLET PO (08:53)
[2022-04-18 11:59] LABS: Glucose Point of Care 164 mg/dl (65-105)
[2022-04-18 13:30] VITALS: O2SAT 98
[2022-04-18 14:00] VITALS: BP 127/65; PULSE 60; RESP 20; TEMP 36.4; O2SAT 99
--- NOTE | 2022-04-18 14:05 | PM.IMPN ---
Progress Note: A&P Assessment and Plan (1) Urinary tract infection: Code(s): N39.0 - Urinary tract infection, site not specified Status: Acute Assessment and Plan: Patient has a history of multiple UTIs. Patient had UA conducted under primary care's office and urine culture was positive for resistant bacteria. Patient was contacted told to come to the ER. Unable to get culture results at this time. UA revealed positive nitrates, leukocyte esterase positive with greater than 75 wbc's, WBC clumps 3+ bacteria. Urine culture in February positive for Klebsiella and sensitive to Rocephin Patient started on Rocephin Tailor urine culture to antibiotic sensitivities Getting records from PCPs office. Patient does straight cath 4 times a day. Discussed with patient she stated that she does use sterile technique such as washing her hands before and after catheterization as well as wiping down Zandra area before catheter insertion. 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 Sliding scale 3-6 units Hypoglycemic protocol initiated Accu-Cheks a.c. HS (3) Stage 3b chronic kidney disease: Code(s): N18.32 - Chronic kidney disease, stage 3b Status: Acute Assessment and Plan: Creatinine 1.5 and this seems to be normal for her. Stable (4) Paroxysmal atrial fibrillation: Code(s): I48.0 - Paroxysmal atrial fibrillation Status: Chronic Assessment and Plan: Continue amlodipine and Eliquis. Time Spent With Patient Time with patient: 25 - 35 minutes Subjective Date/time seen: 04/18/22 14:05 Interval history: Patient sitting up in bed reading when I entered the room. Patient in good spirits. Patient still having some urinary urgency and frequency but denies dysuria. Patient denies fevers, nausea, vomiting, abdominal pain and back pain. Patient stated that she had gotten a UA and urine culture done a week or 2 ago at her primary care's office and got a call from her primary care provider stating that she had resistant bacteria in her urine culture. Discussed with nurse and we are trying to get records from primary care's office. Review of Systems Review of Systems: All systems reviewed & are unremarkable except as noted in HPI and below Exam Narrative: GENERAL: Comfortable, no acute distress HENMT: moist mucous membranes EYES: EOM intact b/l NECK: no lymphadenopathy RESPIRATORY: clear to auscultation CARDIO: RRR GI: soft, nontender, bowel sounds present, no CVA tenderness SKIN: no rashes EXTREMITIES: no edema, redness or tenderness Objective Data Vital Signs Vital Signs: Vital Signs - 24 hr 04/17/22 14:15 04/17/22 18:24 04/17/22 22:00 Temperature 97.3 F L 96.9 F L Pulse Rate 110 H 88 88 Respiratory Rate 20 16 18 Blood Pressure 180/82 H 149/77 H 151/78 H Pulse Oximetry 100 100 100 Oxygen Delivery Room Air 04/18/22 06:00 04/18/22 13:30 Temperature 96.9 F L Pulse Rate 76 Respiratory Rate 16 Blood Pressure 125/59 L Pulse Oximetry 99 98 Oxygen Delivery Room Air Intake/Output Intake/Output: Intake & Output 04/15/22 04/16/22 04/17/22 04/18/22 23:59 23:59 23:59 23:59 Intake Total 50 840 Balance 50 840 Meds/Results Medications: Active Medications Generic Name Dose Route Start Last Admin Trade Name Freq PRN Reason Stop Dose Admin Acetaminophen 650 mg 04/17/22 17:46 Acetaminophen 325 Mg Tablet PO Q4H PRN Mild Pain (1-3) or Fever Amlodipine Besylate 2.5 mg 04/18/22 09:00 04/18/22 08:52 Amlodipine Besylate 2.5 Mg Tablet PO 2.5 mg QAM SELMA Administration Apixaban 5 mg 04/18/22 09:00 04/18/22 08:53 Apixaban 5 Mg Tablet PO 5 mg BID SELMA Administration Aspirin 81 mg 04/18/22 09:00
[2022-04-18 16:00] VITALS: BP 127/62; PULSE 70; RESP 16; TEMP 36.7; O2SAT 99
[2022-04-18 16:33] LABS: Glucose Point of Care 177 mg/dl (65-105)
[2022-04-18 20:00] VITALS: BP 131/74; PULSE 84; RESP 20; TEMP 36.4; O2SAT 97
[2022-04-18 21:10] LABS: Glucose Point of Care 273 mg/dl (65-105)
[2022-04-18 22:00] VITALS: BP 131/74; PULSE 84; RESP 20; TEMP 36.4; O2SAT 97
[2022-04-18] MEDS: ATORVASTATIN 40 MG TABLET PO (22:16)
[2022-04-19 05:00] VITALS: BP 150/52; PULSE 71; RESP 16; TEMP 36; O2SAT 100
[2022-04-19] MEDS: LEVOTHYROXINE SODIUM 125 MCG TABLET PO (06:14)
[2022-04-19 08:09] LABS: Basophils Percent Auto 0.7 % (0.2-1.2); Eosinophils Absolute Auto 0.3 K/mm3 (0-0.3); Eosinophils Percent Auto 4.9 % (0-4.4); Hematocrit 29.8 % (37.0-47.0); Hemoglobin 9.5 g/dL (12.0-15.0); Immature Granulocyte Absolute 0.02 K/mm3 (0.00-0.031); Immature Granulocyte Percent A 0.3 % (0-0.5); Lymphocytes Absolute Auto 1.89 K/mm3 (0.9-3.2); Mean Corpuscular HGB Conc 31.9 g/dl (32-36); Mean Corpuscular Hemoglobin 26.8 pg (26-34); Mean Corpuscular Volume 83.9 fl (80-100); Mean Platelet Volume 10.6 fl (7.4-10.4); Monocytes Absolute Auto 0.5 K/mm3 (0.1-0.6); Neutrophils Absolute Auto 3.2 K/mm3 (1.3-6.7); Neutrophils Percent Auto 54.1 % (45.5-73.1); Platelet Count Result 252 k/mm3 (150-375); Red Blood Count 3.55 M/mm3 (4.2-5.4); Red Cell Distribution Width 14.6 % (11.5-14.5); White Blood Count 5.9 K/mm3 (4.5-10.0)
[2022-04-19 08:14] LABS: Glucose Point of Care 200 mg/dl (65-105)
[2022-04-19 08:20] LABS: Alanine Aminotransferase 15 U/L (6-35); Albumin Level 3.1 g/dL (3.5-5.1); Alkaline Phosphatase 101 U/L (38-126); Anion Gap 3 mmol/L (8-16); Aspartate Amino Transferase 17 U/L (14-36); Bilirubin,Total 0.4 mg/dL (0.2-1.3); Blood Urea Nitrogen 27 mg/dL (7-17); Calcium 8.5 mg/dL (8.4-10.2); Carbon Dioxide 24 mmol/L (22-30); Chloride 108 mmol/L (98-107); Estimated CRCL calculation 43 ml/min; Estimated Glomerular Filt Rate 32; Glucose 190 mg/dL (65-110); Potassium 3.9 mmol/L (3.4-5.0); Sodium 135 mmol/L (137-145)
[2022-04-19] MEDS: APIXABAN 5 MG TABLET PO ×2 (08:40→17:58)
[2022-04-19] MEDS: lisinopriL 20 MG TABLET 40 MG PO (08:41)
[2022-04-19] MEDS: CHOLECALCIFEROL 1,000 UNITS TABLET 2000 UNITS PO (08:41)
[2022-04-19] MEDS: FAMOTIDINE 20 MG TABLET 40 MG PO (08:41)
[2022-04-19] MEDS: ASPIRIN 81 MG ENTERIC TABLET PO (08:41)
[2022-04-19] MEDS: amLODIPine BESYLATE 2.5 MG TABLET PO (08:41)
[2022-04-19] MEDS: INSULIN ASPART (*BKC) 100 UNITS/ML 6 UNITS SUB-Q ×3 (08:42→17:59)
[2022-04-19 12:11] LABS: Glucose Point of Care 168 mg/dl (65-105)
[2022-04-19 14:00] VITALS: BP 133/71; PULSE 60; RESP 20; TEMP 36.4; O2SAT 97
--- NOTE | 2022-04-19 14:57 | PM.IMPN ---
Progress Note: A&P Assessment and Plan (1) Urinary tract infection: Code(s): N39.0 - Urinary tract infection, site not specified Status: Acute Assessment and Plan: Patient has a history of multiple UTIs. Patient had UA conducted under primary care's office and urine culture was positive for resistant bacteria. Patient was contacted told to come to the ER. Unable to get culture results at this time. UA revealed positive nitrates, leukocyte esterase positive with greater than 75 wbc's, WBC clumps 3+ bacteria. Urine culture in February positive for Klebsiella and sensitive to Rocephin Patient started on Rocephin Tailor urine culture to antibiotic sensitivities Getting records from PCPs office. Patient does straight cath 4 times a day. Discussed with patient she stated that she does use sterile technique such as washing her hands before and after catheterization as well as wiping down Zandra area before catheter insertion. 04/19/22 Urine culture positive for Klebsiella pneumoniae ESBL Urine culture sensitive for the imipenem, patient started on imipenem Blood cultures ordered Patient will likely have to go home with IV. (2) Insulin dependent type 2 diabetes mellitus: Code(s): E11.9 - Type 2 diabetes mellitus without complications; Z79.4 - intermediate (current) use of insulin Status: Acute Assessment and Plan: 32 units of Lantus q.h.s. Sliding scale 3-6 units Hypoglycemic protocol initiated Accu-Cheks a.c. HS (3) Stage 3b chronic kidney disease: Code(s): N18.32 - Chronic kidney disease, stage 3b Status: Acute Assessment and Plan: Creatinine 1.5 and this seems to be normal for her. Stable (4) Paroxysmal atrial fibrillation: Code(s): I48.0 - Paroxysmal atrial fibrillation Status: Chronic Assessment and Plan: Continue amlodipine and Eliquis. Time Spent With Patient Time with patient: 25 - 35 minutes Subjective Date/time seen: 04/19/22 14:57 Interval history: Patient feeling well today. Patient still having a little bit of blood in her urine although no other symptoms present. Patient has no new complaints. Patient urine positive and sensitive to imipenem. Patient started on this antibiotic. Review of Systems Review of Systems: All systems reviewed & are unremarkable except as noted in HPI and below Exam Narrative: GENERAL: Comfortable, no acute distress HENMT: moist mucous membranes EYES: EOM intact b/l NECK: no lymphadenopathy RESPIRATORY: clear to auscultation CARDIO: RRR GI: soft, nontender, bowel sounds present, no CVA tenderness SKIN: no rashes EXTREMITIES: no edema, redness or tenderness Objective Data Vital Signs Vital Signs: Vital Signs - 24 hr 04/18/22 16:00 04/18/22 20:00 04/18/22 22:00 Temperature 98.0 F 97.5 F L 97.5 F L Pulse Rate 70 84 84 Respiratory Rate 16 20 20 Blood Pressure 127/62 131/74 131/74 Pulse Oximetry 99 97 97 Oxygen Delivery 04/18/22 20:00 04/19/22 05:00 04/19/22 08:00 Temperature 96.8 F L Pulse Rate 71 Respiratory Rate 16 Blood Pressure 150/52 H Pulse Oximetry 100 Oxygen Delivery Room Air Room Air 04/19/22 14:00 Temperature 97.6 F Pulse Rate 60 Respiratory Rate 20 Blood Pressure 133/71 Pulse Oximetry 97 Oxygen Delivery Intake/Output Intake/Output: Intake & Output 04/16/22 04/17/22 04/18/22 04/19/22 23:59 23:59 23:59 23:59 Intake Total 50 1580 480 Output Total 625 Balance 50 955 480 Meds/Results Medications: Active Medications Generic Name Dose Route Start Last Admin Trade Name Freq PRN Reason Stop Dose Admin Acetaminophen 650 mg 04/17/22 17:46 Acetaminophen 325 Mg Tablet PO Q4H PRN Mild Pain (1-3) or Fever Amlodipine Besylate 2.5 mg 04/18/22 09:00 04/19/22 08:41 Amlodipine Besylate 2.5 Mg Tablet PO 2.5 mg QAM SELMA Administration Apixaban 5 mg 04/18/22 09:00
[2022-04-19 16:32] LABS: Glucose Point of Care 139 mg/dl (65-105)
[2022-04-19] MEDS: ATORVASTATIN 40 MG TABLET PO (21:27)
[2022-04-19 22:00] VITALS: BP 136/65; PULSE 70; RESP 17; TEMP 36.6; O2SAT 100
[2022-04-19 22:03] LABS: Glucose Point of Care 188 mg/dl (65-105)
[2022-04-20] MEDS: LEVOTHYROXINE SODIUM 125 MCG TABLET PO (05:35)
[2022-04-20 06:00] VITALS: BP 139/72; PULSE 74; RESP 17; TEMP 36.2; O2SAT 100
[2022-04-20 06:28] LABS: Hematocrit 29.4 % (37.0-47.0); Hemoglobin 9.3 g/dL (12.0-15.0); Mean Corpuscular HGB Conc 31.6 g/dl (32-36); Mean Corpuscular Hemoglobin 26.8 pg (26-34); Mean Corpuscular Volume 84.7 fl (80-100); Mean Platelet Volume 10.4 fl (7.4-10.4); Platelet Count Result 256 k/mm3 (150-375); Red Blood Count 3.47 M/mm3 (4.2-5.4); Red Cell Distribution Width 14.6 % (11.5-14.5); White Blood Count 6.2 K/mm3 (4.5-10.0)
[2022-04-20 06:45] LABS: Anion Gap 5 mmol/L (8-16); Blood Urea Nitrogen 24 mg/dL (7-17); Calcium 8.3 mg/dL (8.4-10.2); Carbon Dioxide 22 mmol/L (22-30); Chloride 107 mmol/L (98-107); Estimated CRCL calculation 45 ml/min; Estimated Glomerular Filt Rate 35; Glucose 173 mg/dL (65-110); Potassium 3.9 mmol/L (3.4-5.0); Sodium 134 mmol/L (137-145)
[2022-04-20 08:03] LABS: Glucose Point of Care 182 mg/dl (65-105)
[2022-04-20] MEDS: amLODIPine BESYLATE 2.5 MG TABLET PO (08:32)
[2022-04-20] MEDS: FAMOTIDINE 20 MG TABLET 40 MG PO (08:33)
[2022-04-20] MEDS: lisinopriL 20 MG TABLET 40 MG PO (08:33)
[2022-04-20] MEDS: CHOLECALCIFEROL 1,000 UNITS TABLET 2000 UNITS PO (08:34)
[2022-04-20] MEDS: APIXABAN 5 MG TABLET PO ×2 (08:34→16:59)
[2022-04-20] MEDS: ASPIRIN 81 MG ENTERIC TABLET PO (08:34)
[2022-04-20] MEDS: INSULIN ASPART (*BKC) 100 UNITS/ML 6 UNITS SUB-Q ×3 (08:35→16:59)
[2022-04-20 11:31] LABS: Glucose Point of Care 164 mg/dl (65-105)
[2022-04-20] MEDS: SILVERGEL (ELTA) 45 ML 1 APPLIC TOPICAL (11:44)
--- NOTE | 2022-04-20 12:11 | P.CDI_ITS ---
CDI Query Clarified Diagnosis Clarified Diagnosis: Urine Culture form 04/17/22 grew >100,000 ESBL Documented that Pt does straight cath herself 4 times per day. Pt started on Primaxin @ 6 hours Clarification request - UTI has been documented, Pt Straight cath's 4 times per day documented. Please clarify if UTI is: * due to/associated with Use of straight catheter by Pt four times per day. * not due to/associated with use of straight catheter four times per day by pt. * unable to determine
--- NOTE | 2022-04-20 13:11 | PM.IMPN ---
Progress Note: A&P Assessment and Plan (1) Urinary tract infection: Code(s): N39.0 - Urinary tract infection, site not specified Status: Acute Assessment and Plan: Patient has a history of multiple UTIs. Patient had UA conducted under primary care's office and urine culture was positive for resistant bacteria. Patient was contacted told to come to the ER. Unable to get culture results at this time. UA revealed positive nitrates, leukocyte esterase positive with greater than 75 wbc's, WBC clumps 3+ bacteria. Urine culture in February positive for Klebsiella and sensitive to Rocephin Patient started on Rocephin Tailor urine culture to antibiotic sensitivities Getting records from PCPs office. Patient does straight cath 4 times a day. Discussed with patient she stated that she does use sterile technique such as washing her hands before and after catheterization as well as wiping down Zandra area before catheter insertion. 04/19/22 Urine culture positive for Klebsiella pneumoniae ESBL Urine culture sensitive for the imipenem, patient started on imipenem Blood cultures ordered Patient will likely have to go home with IV. 04/20/22 Blood cultures negative for 48 hours for midline to be placed. Likely discharge tomorrow (2) Insulin dependent type 2 diabetes mellitus: Code(s): E11.9 - Type 2 diabetes mellitus without complications; Z79.4 - longterm (current) use of insulin Status: Acute Assessment and Plan: 32 units of Lantus q.h.s. Sliding scale 3-6 units Hypoglycemic protocol initiated Accu-Cheks a.c. HS (3) Stage 3b chronic kidney disease: Code(s): N18.32 - Chronic kidney disease, stage 3b Status: Acute Assessment and Plan: Creatinine 1.5 and this seems to be normal for her. Stable (4) Paroxysmal atrial fibrillation: Code(s): I48.0 - Paroxysmal atrial fibrillation Status: Chronic Assessment and Plan: Continue amlodipine and Eliquis. Time Spent With Patient Time with patient: 25 - 35 minutes Subjective Date/time seen: 04/20/22 13:11 Interval history: Patient doing well today. Patient has no new complaints. Still having blood in her urine. No other urinary symptoms. Review of Systems Review of Systems: All systems reviewed & are unremarkable except as noted in HPI and below Exam Narrative: GENERAL: Comfortable, no acute distress HENMT: moist mucous membranes EYES: EOM intact b/l NECK: no lymphadenopathy RESPIRATORY: clear to auscultation CARDIO: RRR GI: soft, nontender, bowel sounds present, no CVA tenderness SKIN: no rashes EXTREMITIES: no edema, redness or tenderness Objective Data Vital Signs Vital Signs: Vital Signs - 24 hr 04/19/22 14:00 04/19/22 22:00 04/19/22 20:00 Temperature 97.6 F 98 F Pulse Rate 60 70 Respiratory Rate 20 17 Blood Pressure 133/71 136/65 Pulse Oximetry 97 100 Oxygen Delivery Room Air 04/20/22 06:00 04/20/22 08:00 Temperature 97.1 F L Pulse Rate 74 Respiratory Rate 17 Blood Pressure 139/72 Pulse Oximetry 100 Oxygen Delivery Room Air Intake/Output Intake/Output: Intake & Output 04/17/22 04/18/22 04/19/22 04/20/22 23:59 23:59 23:59 23:59 Intake Total 50 1630 920 440 Output Total 625 Balance 50 1005 920 440 Meds/Results Medications: Active Medications Generic Name Dose Route Start Last Admin Trade Name Alec PRN Reason Stop Dose Admin Acetaminophen 650 mg 04/17/22 17:46 Acetaminophen 325 Mg Tablet PO Q4H PRN Mild Pain (1-3) or Fever Amlodipine Besylate 2.5 mg 04/18/22 09:00 04/20/22 08:32 Amlodipine Besylate 2.5 Mg Tablet PO 2.5 mg QAM SELMA Administration Apixaban 5 mg 04/18/22 09:00 04/20/22 08:34 Apixaban 5 Mg Tablet PO 5 mg BID SELMA Administration Aspirin 81 mg 04/18/22 09:00 04/20/22 08:34 Aspirin 81 Mg Enteric Tablet PO 81 mg DAILY SELMA Administration A
[2022-04-20 14:00] VITALS: BP 153/75; PULSE 81; RESP 12; TEMP 36.5; O2SAT 100
[2022-04-20 16:20] LABS: Glucose Point of Care 130 mg/dl (65-105)
[2022-04-20] MEDS: ATORVASTATIN 40 MG TABLET PO (19:55)
[2022-04-20 20:00] VITALS: BP 148/62; PULSE 77; RESP 14; TEMP 36.4; O2SAT 99
[2022-04-20] MEDS: INSULIN GLARGINE (*BKC) 100 UNITS/ML 32 UNITS SUB-Q (21:32)
[2022-04-21] VITALS: BP 151/65; PULSE 106; RESP 14; TEMP 36.7; O2SAT 99
[2022-04-21 03:00] LABS: Glucose Point of Care 176 mg/dl (65-105)
[2022-04-21 04:00] VITALS: BP 141/67; PULSE 72; RESP 14; TEMP 36.3; O2SAT 100
[2022-04-21 06:00] VITALS: BP 141/67; PULSE 72; RESP 14; TEMP 36.3; O2SAT 100
[2022-04-21] MEDS: LEVOTHYROXINE SODIUM 125 MCG TABLET PO (06:28)
[2022-04-21 06:52] LABS: Basophils Percent Auto 0.7 % (0.2-1.2); Eosinophils Absolute Auto 0.4 K/mm3 (0-0.3); Hematocrit 28.6 % (37.0-47.0); Hemoglobin 9.3 g/dL (12.0-15.0); Immature Granulocyte Absolute 0.02 K/mm3 (0.00-0.031); Immature Granulocyte Percent A 0.3 % (0-0.5); Lymphocytes Absolute Auto 2.11 K/mm3 (0.9-3.2); Lymphocytes Percent Auto 34.5 % (18.3-44.2); Mean Corpuscular HGB Conc 32.5 g/dl (32-36); Mean Corpuscular Hemoglobin 27.6 pg (26-34); Mean Corpuscular Volume 84.9 fl (80-100); Mean Platelet Volume 10.2 fl (7.4-10.4); Monocytes Absolute Auto 0.5 K/mm3 (0.1-0.6); Monocytes Percent Auto 7.5 % (2.6-8.5); Neutrophils Absolute Auto 3.1 K/mm3 (1.3-6.7); Platelet Count Result 244 k/mm3 (150-375); Red Blood Count 3.37 M/mm3 (4.2-5.4); Red Cell Distribution Width 14.6 % (11.5-14.5); White Blood Count 6.1 K/mm3 (4.5-10.0)
[2022-04-21 07:23] LABS: Alanine Aminotransferase 14 U/L (6-35); Albumin Level 3.1 g/dL (3.5-5.1); Alkaline Phosphatase 98 U/L (38-126); Anion Gap 4 mmol/L (8-16); Aspartate Amino Transferase 20 U/L (14-36); Bilirubin,Total 0.5 mg/dL (0.2-1.3); Blood Urea Nitrogen 23 mg/dL (7-17); Calcium 8.5 mg/dL (8.4-10.2); Carbon Dioxide 23 mmol/L (22-30); Chloride 107 mmol/L (98-107); Estimated CRCL calculation 45 ml/min; Estimated Glomerular Filt Rate 35; Glucose 154 mg/dL (65-110); Potassium 3.8 mmol/L (3.4-5.0); Sodium 134 mmol/L (137-145)
[2022-04-21 08:00] VITALS: BP 140/67; PULSE 75; RESP 16; TEMP 36.3; O2SAT 100
[2022-04-21 08:11] LABS: Glucose Point of Care 170 mg/dl (65-105)
[2022-04-21 08:30] VITALS: PULSE 75; RESP 16; O2SAT 100
[2022-04-21] MEDS: INSULIN ASPART (*BKC) 100 UNITS/ML 6 UNITS SUB-Q ×2 (08:30→12:18)
[2022-04-21] MEDS: FAMOTIDINE 20 MG TABLET 40 MG PO (08:33)
[2022-04-21] MEDS: APIXABAN 5 MG TABLET PO (08:34)
[2022-04-21] MEDS: CHOLECALCIFEROL 1,000 UNITS TABLET 2000 UNITS PO (08:34)
[2022-04-21] MEDS: ASPIRIN 81 MG ENTERIC TABLET PO (08:34)
[2022-04-21] MEDS: amLODIPine BESYLATE 2.5 MG TABLET PO (08:34)
[2022-04-21] MEDS: lisinopriL 20 MG TABLET 40 MG PO (08:34)
[2022-04-21] MEDS: SILVERGEL (ELTA) 45 ML 1 APPLIC TOPICAL (08:35)
--- NOTE | 2022-04-21 11:18 | PM.DS ---
DS: Admitting Diagnosis Discharge Date 04/21/22 Admitting Diagnosis UTI, positive urine culture from PCP DS: Discharge Diagnosis Discharge Diagnosis (1) Urinary tract infection: Code(s): N39.0 - Urinary tract infection, site not specified Status: Acute Assessment and Plan: Patient has a history of multiple UTIs. Patient had UA conducted under primary care's office and urine culture was positive for resistant bacteria. Patient was contacted told to come to the ER. Unable to get culture results at this time. UA revealed positive nitrates, leukocyte esterase positive with greater than 75 wbc's, WBC clumps 3+ bacteria. Urine culture in February positive for Klebsiella and sensitive to Rocephin Patient started on Rocephin Tailor urine culture to antibiotic sensitivities Getting records from PCPs office. Patient does straight cath 4 times a day. Discussed with patient she stated that she does use sterile technique such as washing her hands before and after catheterization as well as wiping down Zandra area before catheter insertion. 04/19/22 Urine culture positive for Klebsiella pneumoniae ESBL Urine culture sensitive for the imipenem, patient started on imipenem Blood cultures ordered Patient will likely have to go home with IV. 04/20/22 Blood cultures negative for 48 hours for midline to be placed. Discussed case with ID pharmacist and cultures also sensitive to ertapenem which is once a day verses imipenem which is 4 times a day. It is more convenient for patient to receive ertapenem the us antibiotics changed to ertapenem and this is what patient will be discharged home on. 04/21/2022 Midline placement, discharge home on ertapenem through 04/25/2022. 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 Sliding scale 3-6 units Hypoglycemic protocol initiated Accu-Cheks a.c. HS (3) Stage 3b chronic kidney disease: Code(s): N18.32 - Chronic kidney disease, stage 3b Status: Acute Assessment and Plan: Creatinine 1.5 and this seems to be normal for her. Stable (4) Paroxysmal atrial fibrillation: Code(s): I48.0 - Paroxysmal atrial fibrillation Status: Chronic Assessment and Plan: Continue amlodipine and Eliquis. DS: Summary Hospital Course Reason for hospitalization: UTI, positive urine culture Hospital Course: 66 year old patient presented to the ER on 04/17/2022 due to positive urine culture that was taken by her primary care. Patient had been taking Levaquin for a couple weeks due to dysuria, urinary frequency and urgency. On arrival patient reported that she had some suprapubic discomfort and dysuria and had been taking azo. Patient self caths 4 times a day. We were unable to get copy of urine culture that was positive that brought patient into the ED. Repeat UA conducted and revealed nitrate and leukocyte esterase positive with greater than 75 WBC, WBC clumps and 3+ bacteria. Patient started on Rocephin. Urine culture positive for Klebsiella pneumonia ESBL. Culture sensitive to imipenem and patient transitioned to this antibiotic from Rocephin. Discussed case with ID pharmacist and he was able to get records revealing that Klebsiella was sensitive to ertapenem. Due to ertapenem being a once a day medication patient was transitioned to this. Blood cultures negative for 48 hours and midline was placed. One dose of ertapenem given in the midline before discharge. Patient will be discharged with IV antibiotics. Home health will be following patient. Patient will receive antibiotics for total of 7 days. Time Spent with Patient Time attestation: Total time spent providing and/or coordinating discharge services: Exam Narrative: GENERAL: Comfortable
[2022-04-21 12:00] VITALS: BP 158/73; PULSE 72; RESP 16; TEMP 36.6; O2SAT 100
[2022-04-21 12:03] LABS: Glucose Point of Care 207 mg/dl (65-105)
[2022-04-21] MEDS: INSULIN ASPART (*BKC) 100 UNITS/ML SUB-Q (12:18)
[2022-04-21] MEDS: LIDOCAINE HCL 1% LOCAL INJ 2 ML AMPUL 5 ML INFILTRATE (14:15)
[2022-04-21] MEDS: ERTAPENEM 1 GM/NS 50 ML 1 GM/50 ML BAG IVPB (14:57)
== END 2022-04-21 16:14 | disposition home health service (06) | DRG 690 ==
LOC: ANHED 15:48 → ANH3MEDSUR 18:15
PROVIDERS: Physician Assistant; Admitting Provider Family Medicine; Emergency Provider Emergency Medicine; PCP Physician Assistant; Visit Provider Internal Medicine Critical Care Medicine
DX: N39.0 Urinary tract infection, site not specified (principal); Z16.12 Extended spectrum beta lactamase (ESBL) resistance; B96.1 Klebsiella pneumoniae [K. pneumoniae] as the cause of diseases classified elsewhere; I12.9 Hypertensive chronic kidney disease with stage 1 through stage 4 chronic kidney disease, or unspecified chronic kidney disease; N18.32 Chronic kidney disease, stage 3b; I48.0 Paroxysmal atrial fibrillation; Z20.822 Contact with and (suspected) exposure to COVID-19; I25.10 Atherosclerotic heart disease of native coronary artery without angina pectoris; E78.5 Hyperlipidemia, unspecified; E03.9 Hypothyroidism, unspecified; D64.9 Anemia, unspecified; E11.42 Type 2 diabetes mellitus with diabetic polyneuropathy; Z79.01 Long term (current) use of anticoagulants; Z95.1 Presence of aortocoronary bypass graft; Z89.429 Acquired absence of other toe(s), unspecified side; Z90.710 Acquired absence of both cervix and uterus; Z87.891 Personal history of nicotine dependence; Z79.4 Long term (current) use of insulin
CPT/HCPCS: 36415; 36569; 80048; 80053; 81001; 82948; 83036; 85025; 85027; 87040; 87077; 87086; 87186; 87636; 96365; 99285; A9270; C1751; G0378; J0696; J0743; J1335; J1815

== ENCOUNTER 2022-04-24 10:12 | Outpatient (NON) | payer MEDICARE, SELFPAY ==
[2022-04-24 11:14] LABS: Basophils Absolute Auto 0.1 K/mm3 (0.0-0.1); Basophils Percent Auto 0.7 % (0.2-1.2); Eosinophils Absolute Auto 0.5 K/mm3 (0-0.3); Eosinophils Percent Auto 6.8 % (0-4.4); Hematocrit 28.5 % (37.0-47.0); Hemoglobin 9.1 g/dL (12.0-15.0); Immature Granulocyte Absolute 0.03 K/mm3 (0.00-0.031); Immature Granulocyte Percent A 0.4 % (0-0.5); Lymphocytes Absolute Auto 1.89 K/mm3 (0.9-3.2); Lymphocytes Percent Auto 25.7 % (18.3-44.2); Mean Corpuscular HGB Conc 31.9 g/dl (32-36); Mean Corpuscular Volume 87.7 fl (80-100); Mean Platelet Volume 10.9 fl (7.4-10.4); Monocytes Absolute Auto 0.4 K/mm3 (0.1-0.6); Neutrophils Absolute Auto 4.5 K/mm3 (1.3-6.7); Neutrophils Percent Auto 61.4 % (45.5-73.1); Platelet Count Result 256 k/mm3 (150-375); Red Blood Count 3.25 M/mm3 (4.2-5.4); Red Cell Distribution Width 15.1 % (11.5-14.5); White Blood Count 7.4 K/mm3 (4.5-10.0)
[2022-04-24 11:24] LABS: Alanine Aminotransferase 13 U/L (6-35); Albumin Level 3.4 g/dL (3.5-5.1); Alkaline Phosphatase 113 U/L (38-126); Anion Gap 6 mmol/L (8-16); Aspartate Amino Transferase 22 U/L (14-36); Bilirubin,Total 0.3 mg/dL (0.2-1.3); Blood Urea Nitrogen 46 mg/dL (7-17); Calcium 7.6 mg/dL (8.4-10.2); Carbon Dioxide 23 mmol/L (22-30); Chloride 110 mmol/L (98-107); Estimated Glomerular Filt Rate 22; Glucose 164 mg/dL (65-110); Potassium 4.4 mmol/L (3.4-5.0); Sodium 139 mmol/L (137-145)
== END 2022-04-24 10:13 | disposition home or self-care (01) ==
PROVIDERS: PCP Physician Assistant; Visit Provider Physician Assistant
DX: Z45.2 Encounter for adjustment and management of vascular access device (principal); N39.0 Urinary tract infection, site not specified; Z79.2 Long term (current) use of antibiotics; I12.9 Hypertensive chronic kidney disease with stage 1 through stage 4 chronic kidney disease, or unspecified chronic kidney disease
CPT/HCPCS: 80053; 85025

== ENCOUNTER 2022-07-10 15:43 | Outpatient (CLI) | payer MEDICARE, SELFPAY ==
[2022-07-10 16:34] LABS: Creatinine Urine 33.8 mg/dL
[2022-07-10 16:38] LABS: Total Protein Urine Random > 200 mg/dL
[2022-07-10 16:39] LABS: Albumin Level 3.6 g/dL (3.5-5.1); Anion Gap 6 mmol/L (8-16); Blood Urea Nitrogen 25 mg/dL (7-17); Calcium 8.6 mg/dL (8.4-10.2); Carbon Dioxide 22 mmol/L (22-30); Chloride 106 mmol/L (98-107); Estimated Glomerular Filt Rate 30; Glucose 386 mg/dL (65-110); Phosphorus 4.2 mg/dL (2.5-4.5); Potassium 4.6 mmol/L (3.4-5.0); Sodium 134 mmol/L (137-145)
[2022-07-10 16:50] LABS: Parathyroid Intact < 3.5 pg/mL (7.5-53.5)
[2022-07-10 16:58] LABS: Vitamin D 25 Hydroxy 41.4 ng/mL
[2022-07-10 17:12] LABS: Thyroid Stimulating Hormone Reflex < 0.015 uIU/mL (0.465-4.68)
[2022-07-11 05:01] LABS: Free T4 Free Thyroxine Reflex 1.44 ng/dL (0.78-2.19)
[2022-07-11 05:46] LABS: Total Triiodothyronine (T3) 0.92 NG/ML (0.97-1.69)
== END 2022-07-10 15:44 | disposition home or self-care (01) ==
PROVIDERS: PCP Physician Assistant; Visit Provider Internal Medicine Nephrology
DX: E11.22 Type 2 diabetes mellitus with diabetic chronic kidney disease (principal); E55.9 Vitamin D deficiency, unspecified; I12.9 Hypertensive chronic kidney disease with stage 1 through stage 4 chronic kidney disease, or unspecified chronic kidney disease; N18.32 Chronic kidney disease, stage 3b; N25.81 Secondary hyperparathyroidism of renal origin; R80.9 Proteinuria, unspecified; E03.9 Hypothyroidism, unspecified
CPT/HCPCS: 36415; 80069; 82306; 82570; 83970; 84156; 84439; 84443; 84480

== ENCOUNTER 2022-12-08 13:16 | Outpatient (CLI) | payer MEDICARE, SELFPAY ==
[2022-12-08 14:38] LABS: Albumin Level 3.7 g/dL (3.5-5.1); Anion Gap 9 mmol/L (8-16); Blood Urea Nitrogen 28 mg/dL (7-17); Calcium 8.8 mg/dL (8.4-10.2); Carbon Dioxide 18 mmol/L (22-30); Chloride 105 mmol/L (98-107); Estimated Glomerular Filt Rate 30; Glucose 287 mg/dL (65-110); Phosphorus 4.1 mg/dL (2.5-4.5); Potassium 4.6 mmol/L (3.4-5.0); Sodium 132 mmol/L (137-145)
[2022-12-08 16:40] LABS: Creatinine Urine 49.3 mg/dL
[2022-12-08 16:56] LABS: Free T4 Free Thyroxine 1.43 ng/mL (0.78-2.19)
[2022-12-08 17:12] LABS: Total Protein Urine Random > 600 mg/dL
[2022-12-11 07:03] LABS: Triiodothyronine T3 Free 2.6 pg/mL (2.3-4.2)
[2022-12-11 13:39] LABS: Thyroid Stimulating Immunoglob <89 % baseline (<140)
[2022-12-12 03:40] LABS: Thyroid Peroxidase Antibodies <1 IU/mL (<9)
== END 2022-12-08 13:17 | disposition home or self-care (01) ==
PROVIDERS: PCP Physician Assistant; Visit Provider Internal Medicine Nephrology
DX: I12.9 Hypertensive chronic kidney disease with stage 1 through stage 4 chronic kidney disease, or unspecified chronic kidney disease (principal); N18.32 Chronic kidney disease, stage 3b; E11.22 Type 2 diabetes mellitus with diabetic chronic kidney disease; R80.9 Proteinuria, unspecified; E03.9 Hypothyroidism, unspecified
CPT/HCPCS: 36415; 80069; 82570; 84156; 84439; 84443; 84445; 84481; 86376

== ENCOUNTER 2023-06-25 11:40 | Emergency (ER) | payer MEDICARE, SELFPAY ==
--- NOTE | ~2023-06-25 | XR_ITS ---
EXAMINATION: XR foot RT min 3V DATE: 06/25/2023 12:19 INDICATION: Right third toe infection. Heel ulcer. TECHNIQUE: 4 views of right foot were obtained. COMPARISON: None. FINDINGS: There is transmetatarsal amputation of the fourth and fifth rays. There is mild hallux valg us. No fracture. There is an old healed fracture of medial aspect of head of first proximal phalanx. There is mild osteoarthritis of first metatarsophalangeal joint and some of the interphalangeal joint s. There are enthesophytes at the posterior and plantar aspects of calcaneal tuberosity. There is an ulcer inferior to calcaneal tuberosity. IMPRESSION: 1. No evidence of osteomyelitis. Reviewed, dictated and finalized at location A.
[2023-06-25 12:12] VITALS: BP 109/107; PULSE 80; RESP 16; TEMP 36.5; O2SAT 100
[2023-06-25 12:16] LABS: Basophils Absolute Auto 0.1 K/mm3 (0.0-0.1); Basophils Percent Auto 0.6 % (0.2-1.2); Eosinophils Absolute Auto 0.1 K/mm3 (0-0.3); Eosinophils Percent Auto 0.9 % (0-4.4); Hematocrit 28.4 % (37.0-47.0); Hemoglobin 8.7 g/dL (12.0-15.0); Immature Granulocyte Absolute 0.08 K/mm3 (0.00-0.031); Immature Granulocyte Percent A 0.9 % (0-0.5); Lymphocytes Absolute Auto 1.26 K/mm3 (0.9-3.2); Lymphocytes Percent Auto 14.3 % (18.3-44.2); Mean Corpuscular HGB Conc 30.6 g/dl (32-36); Mean Corpuscular Hemoglobin 23.9 pg (26-34); Mean Platelet Volume 10.1 fl (7.4-10.4); Monocytes Absolute Auto 0.5 K/mm3 (0.1-0.6); Monocytes Percent Auto 5.5 % (2.6-8.5); Neutrophils Absolute Auto 6.9 K/mm3 (1.3-6.7); Neutrophils Percent Auto 77.8 % (45.5-73.1); Platelet Count Result 406 k/mm3 (150-375); Red Blood Count 3.64 M/mm3 (4.2-5.4); Red Cell Distribution Width 16.7 % (11.5-14.5); White Blood Count 8.8 K/mm3 (4.5-10.0)
[2023-06-25 12:32] LABS: Partial Thromboplastin Time 28.5 Seconds (22.3-36.8); Prothrombin Time 13.8 Seconds (11.1-14.7)
[2023-06-25 12:33] LABS: Alanine Aminotransferase 24 U/L (6-35); Albumin Level 3.7 g/dL (3.5-5.1); Alkaline Phosphatase 174 U/L (38-126); Anion Gap 10 mmol/L (4-12); Aspartate Amino Transferase 33 U/L (14-36); Bilirubin,Total 0.5 mg/dL (0.2-1.3); Blood Urea Nitrogen 34 mg/dL (7-17); CRP 3.8 mg/dL (<1.0); Carbon Dioxide 17 mmol/L (22-30); Chloride 105 mmol/L (98-107); Estimated Glomerular Filt Rate 28; Glucose 432 mg/dL (65-110); Potassium 4.7 mmol/L (3.4-5.0); Sodium 132 mmol/L (137-145)
[2023-06-25 13:09] LABS: Erythrocyte Sedimentation Rate 133 mm/hr (0-20)
--- NOTE | 2023-06-25 13:41 | ED.GENADULT ---
HPI - General Adult General Chief complaint: Skin/Abscess/Foreign Body Stated complaint: scabies Time Seen by Provider: 06/25/23 11:44 History of Present Illness HPI narrative: Patient is a 67-year-old female who presents ER with 2 issues. Her 1st issue is that she reports she has scabies. She is treated with permethrin 2 weeks ago and then washed all of her clothes and bedding warm water and high heat. She is also placed bedding and plastic bags. No one in the house has similar symptoms. She reports she still has some itching it is worse on her back. She would like a 2nd treatment. Additionally she has a bad toe on her right foot. It is the 3rd toe. It has become more dark. She tried cleaning what she thought was a blood clot off of it but she thinks it may have started dying and she may need a amputation. No fevers or chills or sweats. She has not noticed any additional redness. She does have established care with a caustic mixer locally. Additionally patient reports she did not take any of her diabetic medication this morning. Related Data Home Medications Medication Instructions Recorded Confirmed apixaban 5 mg tablet (Eliquis) 5 mg PO BID 09/21/21 12/14/22 insulin degludec 100 unit/mL (3 32 unit subcut HS 09/22/21 12/14/22 mL) subcutaneous pen (Tresiba FlexTouch U-100 insulin) atorvastatin 40 mg tablet 40 mg PO HS 12/09/21 12/14/22 cholecalciferol (vitamin D3) 50 50 mcg PO QAM 12/09/21 12/14/22 mcg (2,000 unit) tablet lisinopril 40 mg tablet 40 mg PO QAM 12/09/21 12/14/22 hydroxyzine pamoate 50 mg capsule 50 mg PO TID 03/30/22 08/03/22 levothyroxine 125 mcg tablet 125 mcg PO DAILY 04/17/22 08/03/22 insulin pen,reusable,BT,lispro 12/14/22 12/14/22 (InPen (for Humalog) Blue subcutaneous) Allergies Allergy/AdvReac Type Severity Reaction Status Date / Time No Known Allergies Allergy Unknown Verified 12/14/22 14:56 Review of Systems Review of Systems: All systems reviewed & are unremarkable except as noted in HPI and below Constitutional: Constitutional: Reports no additional constitutional complaints ENT: Reports system reviewed and no additional complaints, except as documented Cardiovascular: Cardiovascular: Reports no additional cardiovascular complaints Respiratory: Respiratory: Reports no additional respiratory complaints Gastrointestinal: Gastrointestinal: Reports no additional gastrointestinal complaints Musculoskeletal: Comments: Discolored right 3rd toe Integumentary/Breasts: Skin/Breast: Reports pruritus, Reports erythema and Reports rash PMFSH Past Medical History Medical History (Updated 06/25/23 @ 14:46 by Aubrey Arzola MD) Chronic anemia Chronic anticoagulation Coronary artery disease Diabetic neuropathy Hyperlipidemia Hypertension Insulin dependent type 2 diabetes mellitus Osteomyelitis Paroxysmal atrial fibrillation Stage 3b chronic kidney disease Urinary retention Surgical History Surgical History (Updated 04/17/22 @ 23:42 by Makayla Ham PA-C) History of amputation of toe History of coronary artery bypass graft History of hysterectomy Family History Family History Sibling Thymus cancer Diabetes mellitus All 4 siblings Lung cancer, lower lobe Melanoma Lymph edema Mother Family history of emphysema Father Acute myocardial infarction Social History Social History (Updated 12/14/22 @ 15:07 by Deidra Merida MA) Social History: Surrogate medical decision maker: Natan Marquez, spouse. Code status: Full code. Smoking packs per day: 0.5 Smoking cigarettes per day: 10.0 Years smoked: 30 Smoking pack-years: 15.00 Smoking status: Former smoker Tobacco type: cigarettes Second hand tobacco smoke exposure: Yes ( smokes) Smoking end date: 03/15/06 Alcohol intake: never Substance use: never Substance use type: does not use Lack of
[2023-06-25 14:04] LABS: Alveolar/Arterial O2 Gradient 38.1 mmHg; Fractional Inspired Oxygen 21 %; HCO3 ABG 15.7 mEq/l (22.0-26.0); Methemoglobin ABG 0.5 %THb (0-1.5); Oxygen Content ABG 13.5 %vol (16.0-22.0); Oxyhemoglobin 93.1 % THb (90.0-100.0); PCO2 ABG 26.4 mmHg (35.0-45.0); PO2 FiO2 Ratio Arterial Blood 3.81 %; Reduced Hemoglobin 5.4 %THb (0-5.0); Total Hemoglobin 10.2 g/dL (12.0-18.0); pH ABG 7.391 (7.350-7.450)
[2023-06-25 14:06] LABS: Device ROOM AIR; Modified Allen's Test Pass; Site Drawn LEFT RADIAL
[2023-06-25] MEDS: INSULIN HUMAN REGULAR (*BKC) 100 UNITS/ML 10 UNITS IV PUSH (14:22)
[2023-06-25 14:43] VITALS: BP 174/91; PULSE 80; RESP 16; O2SAT 100
[2023-06-25 14:48] LABS: Glucose Point of Care 313 mg/dl (65-105)
== END 2023-06-25 15:02 | disposition home or self-care (01) ==
PROVIDERS: Emergency Provider Emergency Medicine; PCP Physician Assistant
DX: E11.52 Type 2 diabetes mellitus with diabetic peripheral angiopathy with gangrene (principal); I96 Gangrene, not elsewhere classified; L29.9 Pruritus, unspecified; Z79.01 Long term (current) use of anticoagulants; I25.10 Atherosclerotic heart disease of native coronary artery without angina pectoris; Z79.4 Long term (current) use of insulin; E78.5 Hyperlipidemia, unspecified; I48.0 Paroxysmal atrial fibrillation; N18.32 Chronic kidney disease, stage 3b; E11.22 Type 2 diabetes mellitus with diabetic chronic kidney disease; I12.9 Hypertensive chronic kidney disease with stage 1 through stage 4 chronic kidney disease, or unspecified chronic kidney disease; Z87.891 Personal history of nicotine dependence
CPT/HCPCS: 36415; 36600; 73630; 80053; 82375; 82805; 82948; 83050; 85025; 85610; 85652; 85730; 86140; 96374; 99284; J1815

== ENCOUNTER 2023-08-13 08:17 | Outpatient (RCR) | payer MEDICARE, SELFPAY ==
[2023-08-13] VITALS (11 sets, daily range): BP systolic 123–161; BP diastolic 79–96; PULSE 51–96; RESP 12–16; TEMP 36–36.9; O2SAT 96–100
[2023-08-13 09:59] LABS: Hematocrit 23.4 % (37.0-47.0); Mean Corpuscular HGB Conc 28.6 g/dl (32-36); Mean Corpuscular Hemoglobin 22.7 pg (26-34); Mean Corpuscular Volume 79.3 fl (80-100); Mean Platelet Volume 10.3 fl (7.4-10.4); Platelet Count Result 362 k/mm3 (150-375); Red Blood Count 2.95 M/mm3 (4.2-5.4); White Blood Count 7.5 K/mm3 (4.5-10.0)
[2023-08-13 10:14] LABS: Hemoglobin 6.7 g/dL (12.0-15.0)
[2023-08-13] MEDS: SODIUM CHLORIDE 0.9% IV 250 ML 30 ML IV CONT (11:49)
[2023-08-13] MEDS: FUROSEMIDE INJ 40 MG/4 ML VIAL 20 MG IV PUSH (14:50)
--- NOTE | 2023-08-13 17:35 | PC.NURSE ---
Called report to Clovis Payton
== END 2023-11-11 23:59 | disposition home or self-care (01) ==
LOC: ANHCPCTRAN 08:17
PROVIDERS: PCP Physician Assistant; Visit Provider Family Medicine
DX: D64.9 Anemia, unspecified (principal)
CPT/HCPCS: 36415; 36430; 85027; 86850; 86900; 86901; 86923; 96374; J1940; J7050; P9016

== ENCOUNTER 2023-09-23 12:49 | Outpatient (NON) | payer MEDICARE, SELFPAY ==
[2023-09-23 14:01] LABS: Iron 19 ug/dL (37-170)
[2023-09-23 14:11] LABS: Percent Iron Saturation 5 % (20-50)
== END 2023-09-23 12:50 | disposition home or self-care (01) ==
LOC: HOME HLTH 12:54
PROVIDERS: PCP Physician Assistant; Visit Provider Physician Assistant
DX: Z47.81 Encounter for orthopedic aftercare following surgical amputation (principal); I87.2 Venous insufficiency (chronic) (peripheral); E11.51 Type 2 diabetes mellitus with diabetic peripheral angiopathy without gangrene; Z89.511 Acquired absence of right leg below knee
CPT/HCPCS: 82728; 83540; 83550

== ENCOUNTER 2023-10-11 12:46 | Outpatient (CLI) | payer MEDICARE, SELFPAY ==
[2023-10-11 14:16] LABS: Albumin Level 3.6 g/dL (3.5-5.1); Anion Gap 15 mmol/L (4-12); Blood Urea Nitrogen 56 mg/dL (7-17); Calcium 8.8 mg/dL (8.4-10.2); Carbon Dioxide 17 mmol/L (22-30); Chloride 102 mmol/L (98-107); Estimated Glomerular Filt Rate 18; Glucose 262 mg/dL (65-110); Phosphorus 4.6 mg/dL (2.5-4.5); Potassium 5.1 mmol/L (3.4-5.0); Sodium 134 mmol/L (137-145)
[2023-10-11 14:25] LABS: Hemoglobin A1C 9.5 % (<5.7)
[2023-10-11 14:26] LABS: Parathyroid Intact 109.8 pg/mL (7.5-53.5)
[2023-10-11 14:35] LABS: Vitamin D 25 Hydroxy 71.2 ng/mL
== END 2023-10-11 12:47 | disposition home or self-care (01) ==
PROVIDERS: PCP Physician Assistant; Visit Provider Internal Medicine Nephrology
DX: I12.9 Hypertensive chronic kidney disease with stage 1 through stage 4 chronic kidney disease, or unspecified chronic kidney disease (principal); R80.9 Proteinuria, unspecified; N25.81 Secondary hyperparathyroidism of renal origin; N18.32 Chronic kidney disease, stage 3b; E11.22 Type 2 diabetes mellitus with diabetic chronic kidney disease; E55.9 Vitamin D deficiency, unspecified; E11.65 Type 2 diabetes mellitus with hyperglycemia
CPT/HCPCS: 29581; 36415; 80069; 82306; 83036; 83970; A9270

== ENCOUNTER 2023-11-16 04:31 | Inpatient (IN) | payer MEDICARE, SELFPAY ==
[2023-11-16] VITALS (18 sets, daily range): BP systolic 107–144; BP diastolic 56–89; PULSE 70–96; RESP 12–18; TEMP 36.2–36.8; O2SAT 93–100; BMI 37.0
--- NOTE | 2023-11-16 | ECHO_ITS ---
Patient Info Name: Kylie Decker Ahart Age: 68 years : 1955 Gender: Female Ht: 70 in Wt: 256 lbs BSA: 2.44 m2 HR: 72 bpm BP: 120 / 65 mmHg Technical Quality: Fair Exam Date: 11/16/2023 4:12 PM Exam Location: [facility] Patient Status: Inpatient Admit Date: 11/16/2023 Staff Ordering Physician: Florecita Ortiz APRN Tailercpa: Jacklyn Ruvalcaba RDCS Attending Provider: Denise Lisa MD Referring Physician: Angel CARPIO; Exam Type: CA echo doppler color flow Study Info Indications - Elevated BNP Complete two-dimensional, color flow and Doppler transthoracic echocardiogram is performed. Summary 1. Complete two-dimensional, color flow and Doppler transthoracic echocardiogram is performed. 2. Left ventricular chamber dimension is normal. 3. Left ventricular systolic function is mildly reduced, estimated at 45-50%. 4. There is moderately increased left ventricular wall thickness. 5. Left ventricular septal wall motion is abnormal with septal motion related to bundle branch block. 6. Right ventricular chamber dimension is mildly enlarged. 7. Right ventricular systolic function is reduced. 8. Left atrial chamber dimension is moderately enlarged. 9. Right atrial chamber dimension is moderately enlarged. 10. There is moderate mitral valve regurgitation. 11. There is moderate to severe tricuspid valve regurgitation. 12. There is mild pulmonic regurgitation. 13. Pulmonary hypertension. Estimated pulmonary arterial systolic pressure is 55 mmHg. Left Ventricle Left ventricular chamber dimension is normal. Left ventricular systolic function is mildly reduced, estimated at 45-50%. There is moderately increased left ventricular wall thickness. Left ventricular septal wall motion is abnormal with septal motion related to bundle branch block. Right Ventricle Right ventricular chamber dimension is mildly enlarged. Right ventricular systolic function is reduced. Left Atria Left atrial chamber dimension is moderately enlarged. Right Atria Right atrial chamber dimension is moderately enlarged. Atrial Septum Intact interatrial septum visualized by color flow imaging. Aortic Valve The aortic valve is trileaflet. There is mild aortic valve sclerosis. There is no aortic valve stenosis. There is no aortic valve regurgitation. Pulmonic Valve The pulmonic valve is not well visualized. There is mild pulmonic regurgitation. Mitral Valve The mitral valve has thickened leaflets. There is moderate mitral valve regurgitation. The mitral valve annulus is moderately calcified. Tricuspid Valve There is moderate to severe tricuspid valve regurgitation. Pulmonary hypertension. Estimated pulmonary arterial systolic pressure is 55 mmHg. Pericardium/Pleural There is no pericardial effusion. Inferior Vena Cava Dilated inferior vena cava with <50% collapse upon inspiration consistent with elevated right atrial pressure, 15 mmHg. Aorta The aortic root size at the sinus of Valsalva is normal. Left Ventricular Outflow Tract Name Value Normal LVOT 2D LVOT Diameter 1.9 cm LVOT Doppler LVOT Peak Gradient 3 mmHg LVOT Mean Gradient 1 mmHg LVOT VTI
--- NOTE | ~2023-11-16 | US_ITS ---
EXAMINATION: US biopsy renal DATE: 11/23/2023 11:25 INDICATION: Acute on chronic kidney disease. TECHNIQUE: The procedure including the risks, benefits, and alternatives was discussed with the patie nt. Risks discussed included bleeding and infection. The patient understood the risks and agreed to p roceed. A timeout was performed to verify the patient's name, date of , and procedure to be p erformed. The skin overlying the left kidney was prepped and draped in usual sterile fashion. Anest hetic was administered with 1% lidocaine subcutaneously. An 18 gauge core biopsy needle was then use d to obtain 3 core biopsy specimens under continuous sonographic guidance. The entry site was cleaned and dressed. There were no immediate complications. FINDINGS: Ultrasound images demonstrate the needle in the kidney. IMPRESSION: 1. Ultrasound-guided random left kidney core needle biopsy. Reviewed, dictated and finalized at location A.
--- NOTE | ~2023-11-16 | US_ITS ---
EXAMINATION: US arterial ankle brachial ind DATE: 11/16/2023 18:02 INDICATION: Peripheral arterial disease. Claudication. Left lower extremity ulcer. TECHNIQUE: Segmental pressures and plethysmographic and Doppler waveforms of the brachial and lower e xtremity arteries were obtained. COMPARISON: None. FINDINGS: Right and left brachial artery pressures of 154 mm Hg and 132 mm Hg, respectively, are concordant (no rmal difference <= 30 mmHg). There are changes of right-sided amputation. The left ADELA could not be measured due to inability to cuff occlude the arteries. The left TBI is 0.1 5. Arterial Doppler waveforms are biphasic and noisy at the ankle. IMPRESSION: 1. Decreased left TBI and nondiagnostic left ADELA, consistent with arterial occlusive disease. Reviewed, dictated and finalized at location A. IMPRESSION: 1. Decreased left TBI and nondiagnostic left ADELA, consistent with arterial occl usive disease.
--- NOTE | ~2023-11-16 | CT_ITS ---
Non-contrast CT scan of the Abdomen and Pelvis Clinical indication: Abdominal pain Technique: 2.5 mm axial scans were obtained through the abdomen and pelvis without intravenous or or al contrast. Dose reduction technique was used on this scan by utilizing automated exposure control a nd iterative reconstruction technique. The dose-length product (DLP) was 1586.47 mGy-cm. COMPARISON: 09/27/2021 Findings: Images through the lung bases reveal moderate bilateral pleural effusions and mild bibasil ar atelectasis. There is no evidence of renal or ureteral calculi. The kidneys and the ureters are nondilated. The liver, spleen, pancreas, and adrenals appear normal. Small layering gallstones are present. There are atherosclerotic calcifications of the aorta. . There is no evidence of bowel obstruction. Moderate amount of abdominopelvic ascites present. There i s diffuse soft tissue anasarca. Images through the pelvis were performed. Orr catheter in the urinary bladder. No adnexal mass evid ent. Impression: Moderate bilateral pleural effusions. Moderate abdominopelvic ascites. Cholelithiasis. Diffuse soft tissue anasarca. Reviewed, dictated and finalized at location . Impression: Moderate bilateral pleural effusions. Moderate abdominopelvic ascites. Cholelithiasis. Diffuse soft tissue anasarca.
--- NOTE | ~2023-11-16 | US_ITS ---
EXAMINATION: US carotid duplex BI DATE: 11/20/2023 12:57 INDICATION: Aphasia. TECHNIQUE: Grayscale, color Doppler, and pulsed Doppler images of the cervical carotid arteries were obtained. The degree of vessel stenosis is placed in one of the following categories: normal, <50%, 5 0-69%, >=70% but less than near-occlusion, near-occlusion, or total occlusion. Note that percent sten osis relative to normal distal artery lumen diameter is indirectly measured from velocity measurement s as described by Andres, et al. Radiology 2003; 229:340-346. COMPARISON: None. FINDINGS: RIGHT: The right common carotid artery (CCA) peak systolic velocity (PSV) is 69 cm/s. The right internal car otid artery (ICA) PSV is 72 cm/s. The right ICA end-diastolic velocity (EDV) is 19 cm/s. The right IC A/CCA PSV ratio is 1.0. Grayscale and color Doppler images yield an estimate of <50% diameter reducti on from plaque in the ICA. There is antegrade flow in the right vertebral artery. LEFT: The left CCA PSV is 81 cm/s. The left ICA PSV is 71 cm/s. The left ICA EDV is 13 cm/s. The left ICA/C CA PSV ratio is 0.9. Grayscale and color Doppler images yield an estimate of <50% diameter reduction from plaque in the ICA. There is antegrade flow in the left vertebral artery. IMPRESSION: 1. <50% stenosis in the right internal carotid artery. 2. <50% stenosis in the left internal carotid artery. Reviewed, dictated and finalized at location A.
--- NOTE | ~2023-11-16 | XR_ITS ---
EXAMINATION: XR chest port-a-cath/central DATE: 11/26/2023 15:52 INDICATION: Central line placement. TECHNIQUE: A single frontal view of the chest was obtained. COMPARISON: Chest single view 11/16/2023, CT abdomen and pelvis 11/16/2023 FINDINGS: There is a diffuse interstitial pattern in the lungs. There are airspace opacities in the p erihilar regions and left lower lung zone. There is a small left pleural effusion. No pneumothorax. T he heart size is normal. Median sternotomy wires and mediastinal surgical clips are seen, likely from prior coronary artery bypass grafting. A right subclavian central venous catheter is seen with tip i n the superior vena cava. IMPRESSION: 1. Central line tip in the superior vena cava. 2. Diffuse lung disease, likely mild pulmonary edema. 3. Small left pleural effusion. Reviewed, dictated and finalized at location A.
--- NOTE | ~2023-11-16 | XR_ITS ---
EXAMINATION: XR fl guide central line place DATE: 11/26/2023 15:33 INDICATION: Tunneled dialysis catheter insertion TECHNIQUE: Single frontal fluoroscopic image of the right upper chest was obtained during procedure p erformed by Dr. Alegre. Radiologist was not present for the imaging or procedure. The amount of fluoros copy time used during this procedure was 0.1 minutes. FINDINGS: Large-bore dual-lumen likely tunneled right internal jugular central venous catheter with d istal tip at the midsuperior vena cava. Visual is portions of the right lung is clear. Heart size is normal. Median sternotomy wires. IMPRESSION: 1. Central venous catheter tip at the midsuperior vena cava. Reviewed, dictated and finalized at location B.
--- NOTE | ~2023-11-16 | CT_ITS ---
EXAMINATION: CT brain wo con DATE: 11/20/2023 11:11 INDICATION: Altered mental status. TECHNIQUE: Computed tomography (CT) of the head was performed without intravenous contrast. The mA wa s adjusted according to patient size. Iterative reconstruction technique was employed. The dose-lengt h product was 605.33 mGy-cm. COMPARISON: None FINDINGS: There are scattered areas of low attenuation in the cerebral white matter, which is within normal limits for the patient's age. There is no intracranial hemorrhage, acute infarction, or abnorm al intracranial mass lesion. The ventricles are normal in size. The paranasal sinuses are clear. Ther e are likely changes of ocular lens replacement surgeries. The mastoid air cells are normal. IMPRESSION: 1. Normal aging brain. Reviewed, dictated and finalized at location A. IMPRESSION: 1. Normal aging brain.
--- NOTE | ~2023-11-16 | MR_ITS ---
EXAMINATION: MR brain/brain stem wo/w con DATE: 12/01/2023 13:26 INDICATION: Stroke TECHNIQUE: Magnetic resonance imaging (MRI) of the brain and brainstem was performed without and with 19 mL Multihance intravenous contrast. Sequences included sagittal and axial T1-weighted SE, axial d iffusion-weighted FS SE, axial 3D SWAN, axial T2-weighted FLAIR, and axial T2-weighted FSE. Postcontr ast axial and coronal T1-weighted SE was obtained. Apparent diffusion coefficient (ADC) maps were cre ated. COMPARISON: Head CT dated FINDINGS: There are no areas of restricted diffusion to suggest acute infarction. No intracranial hemorrhage or abnormal intracranial mass lesion. There are a few scattered small foci of nonspecific increased T2- weighted signal intensity in the cerebral white matter which is within normal limits for age and like ly sequela of chronic small vessel ischemic disease. Single tiny focus of susceptibility artifact in the right frontoparietal region consistent with chronic microhemorrhage. There are no intraparenchyma l signal abnormalities seen on the other pulse sequences. The ventricles are symmetric and normal in size. There are no abnormal extra-axial fluid collections. Flow voids are seen in the cerebral arteri es on the T2-weighted sequences consistent with their expected patency. Right vertebral artery is dom inant. Changes of bilateral intraocular lens replacement. Mild mucosal thickening the bilateral ethm oid sinuses. There are no areas of abnormal enhancement on the post contrast images. IMPRESSION: 1. No acute intracranial process. 2. Single tiny focus of susceptibility artifact in the right frontoparietal region likely sequela of chronic microhemorrhage. Reviewed, dictated and finalized at location B. IMPRESSION: 1. No acute intracranial process. 2. Single tiny focus of susceptibility artifact in the right frontoparietal reg ion likely sequela of chronic microhemorrhage.
--- NOTE | ~2023-11-16 | XR_ITS ---
Portable chest x-ray Comparison: 04/21/2022 Clinical History: Shortness of breath Findings: Probable minimal left pleural effusion. There is probable mild bibasilar pulmonary edema. Cardiomediastinal silhouette is stable, status post median sternotomy. Bones and soft tissues are un remarkable. Impression: Probable mild bibasilar pulmonary edema/atelectasis, left worse than right. Probable minimal left pleural effusion. Reviewed, dictated and finalized at location . Impression: Probable mild bibasilar pulmonary edema/atelectasis, left worse than right. Probable minimal left pleural effusion.
--- NOTE | 2023-11-16 04:51 | ECG_ITS ---
Test Date: 2023-11-16 05:30:23 Measurements Intervals [place] Rate: 95 P: 0 CT: 0 QRS: 128 QRSD: 88 T: 180 QT: 338 QTc: 425 Interpretive Statements ECTOPIC ATRIAL RHYTHM RIGHT AXIS DEVIATION LOW QRS VOLTAGE IN DIFFUSE LEADS ANTEROSEPTAL INFARCT, AGE INDETERMINATE BORDERLINE T WAVE ABNORMALITY- INF/LAT LEADS BASELINE ARTIFACT- I, III, AVR, AVL, AVF, V5-V6 ABNORMAL ECG No previous ECG available for comparison Electronically Signed On 11-16-2023 06:35:30 CDT by Deondre Roldan D.O.
--- NOTE | 2023-11-16 04:57 | ED.GENADULT ---
HPI - General Adult General Chief complaint: Nausea/Vomiting/Diarrhea <Lefty Aquino MD - Last Filed: 11/16/23 07:00> Stated complaint: diarrhes <Lefty Aquino MD - Last Filed: 11/16/23 07:00> Time Seen by Provider: 11/16/23 04:35 <Lefty Aquino MD - Last Filed: 11/16/23 07:00> History of Present Illness HPI narrative: This is a 68-year-old female with multiple medical comorbidities presenting to ED for weakness. Patient developed profuse diarrhea yesterday at 2:00 p.m.. She has had multiple episodes. It is nonbloody but she has noticed some blood when she wipes. She reports diffuse abdominal pain. No fevers chills chest pain nausea vomiting. She notes she feels slightly short of breath when she lays flat. She denies history of heart failure but she is diffusely edematous this time. <Lefty Aquino MD - Last Filed: 11/16/23 07:00> Related Data Home medications: Home Medications Medication Instructions Recorded Confirmed apixaban 5 mg tablet (Eliquis) 5 mg PO BID 09/21/21 10/11/23 insulin degludec 100 unit/mL (3 28 unit subcut HS 09/22/21 10/11/23 mL) subcutaneous pen (Tresiba FlexTouch U-100 insulin) atorvastatin 40 mg tablet 40 mg PO HS 12/09/21 10/11/23 cholecalciferol (vitamin D3) 50 50 mcg PO WEEKLY 12/09/21 10/11/23 mcg (2,000 unit) tablet lisinopril 40 mg tablet 40 mg PO QAM 12/09/21 10/11/23 hydroxyzine pamoate 50 mg capsule 50 mg PO TID PRN Anxiety 03/30/22 10/11/23 levothyroxine 125 mcg tablet 137 mcg PO DAILY 04/17/22 10/11/23 insulin pen,reusable,BT,lispro 12/14/22 10/11/23 (InPen (for Humalog) Blue subcutaneous) acetaminophen 500 mg tablet 1,000 mg PO Q6H PRN Pain (Scale 10/11/23 10/11/23 (Acetaminophen Extra Strength) Score 4-6) bumetanide 2 mg tablet 2 mg PO DAILY 10/11/23 10/11/23 insulin lispro 100 unit/mL 10 unit subcut TIDWMEAL 10/11/23 10/11/23 subcutaneous pen (Humalog KwikPen (U-100) Insulin) iron,carbonyl 30 mg-vitamin C 10 1 tablet PO BID 10/11/23 10/11/23 mg-FOS 25 mg chewable tablet loperamide 2 mg capsule 2 mg PO Q4H PRN Diarrhea 10/11/23 10/11/23 trazodone 50 mg tablet 50 mg PO HS 10/11/23 10/11/23 <Lefty Aquino MD - Last Filed: 11/16/23 07:00> Allergies/adverse reactions: Allergies Allergy/AdvReac Type Severity Reaction Status Date / Time semaglutide [From Ozempic] AdvReac Unknown Verified 10/11/23 14:26 <Lefty Aquino MD - Last Filed: 11/16/23 07:00> [facility] Past Medical History Medical History: Medical History Chronic anemia Chronic anticoagulation Coronary artery disease Diabetic neuropathy Hyperlipidemia Hypertension Insulin dependent type 2 diabetes mellitus Osteomyelitis Paroxysmal atrial fibrillation Stage 3b chronic kidney disease Urinary retention <Lefty Aquino MD - Last Filed: 11/16/23 07:00> Surgical History Surgical History: Surgical History History of amputation of toe History of coronary artery bypass graft History of hysterectomy <Lefty Aquino MD - Last Filed: 11/16/23 07:00> Family History Family History: Family History Sibling Thymus cancer Diabetes mellitus All 4 siblings Lung cancer, lower lobe Melanoma Lymph edema Mother Family history of emphysema Father Acute myocardial infarction <Lefty Aquino MD - Last Filed: 11/16/23 07:00> Social History Social History: Social History Social History: Surrogate medical decision maker: Natan Marquez, spouse. Code status: Full code. Smoking packs per day: 0.5 Smoking cigarettes per day: 10.0 Years smoked: 30 Smoking pack-years: 15.00 Smoking status: Former smoker Tobacco type: cigarettes Second hand tobacco smoke exposure: Yes ( smokes) Smoking en
[2023-11-16 05:10] LABS: Fractional Inspired Oxygen 21 %; HCO3 VBG 17.4 mEq/l (24.0-30.0); PCO2 VBG 37.7 mmHg (42.0-48.0); PO2 VBG 29.1 mmHg (35.0-45.0); pH VBG 7.283 (7.300-7.400)
[2023-11-16 05:16] LABS: Basophils Absolute Auto 0.1 K/mm3 (0.0-0.1); Basophils Percent Auto 0.8 % (0.2-1.2); Eosinophils Absolute Auto 0.2 K/mm3 (0-0.3); Eosinophils Percent Auto 2.5 % (0-4.4); Hematocrit 26.7 % (37.0-47.0); Hemoglobin 7.9 g/dL (12.0-15.0); Immature Granulocyte Absolute 0.05 K/mm3 (0.00-0.031); Immature Granulocyte Percent A 0.7 % (0-0.5); Lymphocytes Absolute Auto 1.49 K/mm3 (0.9-3.2); Lymphocytes Percent Auto 20.4 % (18.3-44.2); Mean Corpuscular HGB Conc 29.6 g/dl (32-36); Mean Corpuscular Hemoglobin 23.5 pg (26-34); Mean Corpuscular Volume 79.5 fl (80-100); Mean Platelet Volume 10.6 fl (7.4-10.4); Monocytes Absolute Auto 0.6 K/mm3 (0.1-0.6); Monocytes Percent Auto 7.7 % (2.6-8.5); Neutrophils Percent Auto 67.9 % (45.5-73.1); Platelet Count Result 215 k/mm3 (150-375); Red Blood Count 3.36 M/mm3 (4.2-5.4); Red Cell Distribution Width 18.6 % (11.5-14.5); White Blood Count 7.3 K/mm3 (4.5-10.0)
[2023-11-16 05:27] LABS: Lactic Acid Reflex 1.3 mmol/L (0.7-2.0)
[2023-11-16 05:27] LABS: INR 1.4; Partial Thromboplastin Time 30.1 Seconds (22.3-36.8); Prothrombin Time 17.5 Seconds (11.1-14.7)
[2023-11-16 05:31] LABS: Anisocytosis 1+; Hypochromasia 1+; Ovalocytes 1+; Platelet Estimate Adequate (Adequate)
[2023-11-16 05:32] LABS: Schistocytes 1+; Tear Drop Cells 1+
[2023-11-16 05:40] LABS: Troponin I < 0.012 ng/mL (0.000-0.034)
[2023-11-16 06:07] LABS: Alanine Aminotransferase 11 U/L (6-35); Albumin Level 3.5 g/dL (3.5-5.1); Alkaline Phosphatase 162 U/L (38-126); Anion Gap 11 mmol/L (4-12); Aspartate Amino Transferase 19 U/L (14-36); Bilirubin,Total 0.6 mg/dL (0.2-1.3); Blood Urea Nitrogen 50 mg/dL (7-17); Calcium 8.7 mg/dL (8.4-10.2); Carbon Dioxide 16 mmol/L (22-30); Chloride 108 mmol/L (98-107); Estimated CRCL calculation 25 ml/min; Estimated Glomerular Filt Rate 17; Glucose 209 mg/dL (65-110); Lipase 161 U/L (23-300); Magnesium 1.9 mg/dL (1.6-2.3); Phosphorus 4.5 mg/dL (2.5-4.5); Potassium 5.9 mmol/L (3.4-5.0); Sodium 135 mmol/L (137-145)
[2023-11-16 06:16] LABS: NT Pro B Type Natriuretic Pept 20100 pg/mL (19.9-100)
[2023-11-16 06:32] LABS: Free T4 Free Thyroxine Reflex 1.41 ng/dL (0.78-2.19)
[2023-11-16] MEDS: INSULIN HUMAN REGULAR (*BKC) 100 UNITS/ML 10 UNITS IV PUSH (06:32)
[2023-11-16] MEDS: DEXTROSE 50% 25 GM/50 ML SYRINGE IV PUSH (06:34)
[2023-11-16] MEDS: HYDROmorphone HCL INJ (*CRX) 1 MG/ML SYR 0.5 MG IV PUSH (06:34)
[2023-11-16] MEDS: SODIUM ZIRCONIUM CYCLOSILICATE 10 GM POWD.PACK PO ×2 (06:34→18:09)
[2023-11-16] MEDS: FUROSEMIDE INJ 100 MG/10 ML VIAL 80 MG IV PUSH (06:56)
[2023-11-16 07:03] LABS: Appearance Urine Sl Cloudy (Clear); Color Urine Yellow (Yellow); Protein Urine 2+ (Negative)
[2023-11-16 07:04] LABS: Add Urine Microscopic? YES; Bilirubin Urine Negative (Negative); Blood Urine Trace-intact (Negative); Glucose Urine UA Negative (Negative); Ketones Urine Negative (Negative); Leukocyte Esterase Ur 1+ LEU/UL (Negative); Nitrate Urine Negative (Negative); Urobilinogen Urine 0.2 mg/dL (0.2-1.0)
[2023-11-16 07:07] LABS: Influenza A QL RT-PCR Negative (Negative); Influenza B QL RT-PCR Negative (Negative); RSV RNA, RT-PCR Negative (Negative); SARS-CoV-2 RNA PCR Negative (Negative)
[2023-11-16 07:18] LABS: Bacteria Urine Rare /hpf; Need Manual Microscopic Reviewed; RBC Urine 0-2 /hpf (0-2); Squamous Epithelial Cell Urine Occasional /hpf (Few); WBC Urine 51-100 /hpf (0-3)
[2023-11-16 07:45] LABS: Glucose Point of Care 151 mg/dl (65-105)
--- NOTE | 2023-11-16 07:46 | ECG_ITS ---
Test Date: 2023-11-16 07:50:28 Measurements Intervals [place] Rate: 73 P: 0 CO: 0 QRS: 72 QRSD: 92 T: 180 QT: 392 QTc: 433 Interpretive Statements ATRIAL FLUTTER/TACHYCARDIA WITH NORMAL VENTRICULAR RESPONSE LOW QRS VOLTAGE IN LIMB LEADS ANTEROSEPTAL MYOCARDIAL INFARCTION , PROBABLY OLD BORDERLINE ST-T WAVE ABNORMALITY- INF/LAT LEADS BASELINE ARTIFACT- I, III, V1 ABNORMAL ECG Compared to ECG 11/16/2023 05:30:23 NO SIGNIFICANT CHANGE Electronically Signed On 11-16-2023 10:45:45 CDT by Deondre Roldan D.O.
[2023-11-16 08:03] LABS: Total Triiodothyronine (T3) 0.74 NG/ML (0.97-1.69)
[2023-11-16 08:27] LABS: Troponin I < 0.012 ng/mL (0.000-0.034)
[2023-11-16 08:35] LABS: NT Pro B Type Natriuretic Pept 20300 pg/mL (19.9-100)
[2023-11-16] MEDS: VANCOMYCIN 1,750 MG/NS 500 ML 1,750 MG/500 ML BAG 250 MG IVPB (08:45)
[2023-11-16 08:48] LABS: Toxigenic C. Diff NEGATIVE (NEGATIVE)
[2023-11-16 10:39] LABS: Creatinine Urine 26.9 mg/dL; Total Protein Urine Random 45 mg/dL; Urea Random Urine 200 MG/DL
[2023-11-16 10:42] LABS: Eosinophil Urine None Seen % (None Seen); Urine Eos QC 2nd Tech Confirmed
[2023-11-16 10:47] LABS: Sodium Urine Random 104 meq/L
[2023-11-16 10:48] LABS: Total Protein Urine Random 46 mg/dL
--- NOTE | 2023-11-16 13:34 | PM.IMHP ---
H&P: HPI History of Present Illness Date/Time: 11/16/23 13:34 Chief Complaint: Diarrhea Narrative: 68 y/o F presents here with diarrhea with PMH of chronic anemia, CAD, diabetic neuropathy, hyperlipidemia, hypertension, type 2 diabetes, osteomyelitis, paroxysmal AFib, and CKD stage IIIB. The patient presents here from home via EMS for further evaluation of diarrhea, increased weakness, and vaginal burning. She reports onset of diarrhea approximately 24 hours ago (2:00 p.m. on 11/14), had more than 10 episodes yesterday, 4 episodes today, and denies melena. The patient does report faint bright red blood when she wipes post-BMS, chronic/intermittent, and has known hemorrhoids. Diarrhea is accompanied by diffuse abdominal pain and generalized weakness. She describes this as more so discomfort vs pain, nonradiating, constant, and no aggravating/alleviating factors. No associated nausea, vomiting, fever, chills, or poor appetite. Patient is also reporting vaginal discomfort that started 3-4 days ago with associated swelling to genital region. Area is more painful vs itching. Reports recent course of antibiotics - Bactrim on 10/04 for UTI, completed course 1 week ago. Patient has also been experiencing orthopnea for the past 2 months and 38 lbs of weight gain over the last 2 months. She has been experiencing swelling to her LLE and upper extremities with associated weeping/blistering. Patient also has rash to upper left thigh that developed 2 weeks ago. Initially started with one small vesicle and developed multiple small vesicles that have since ruptured without crusting. No hx of shingles, has had chicken pox. Initial VS at presentation: 98.3? F, HR 92, RR 17, 144/68, and 98% on RA ED workup showed: No leukocytosis, hemoglobin 7.9 (previously 6.7 on of 08/13/2023, baseline 8-9), sodium 135, potassium 5.9, creatinine 2.8 and GFR 17 (previously 2.7 and GFR 18 on 10/11/2023), lactic 1.3, initial troponin negative, BNP 20,300, TSH elevated at 13.9, and UA equivocal. CXR showed probable mild bibasilar pulmonary edema/atelectasis left worse than right and probable minimal left pleural effusion. CT of the abdomen/pelvis showed moderate bilateral pleural effusions, moderate abdominal pelvic ascites, cholelithiasis, and diffuse soft tissue anasarca. Review of Systems Review of Systems: All systems reviewed & are unremarkable except as noted in HPI and below PMFSH Past Medical History Medical History Chronic anemia Chronic anticoagulation Coronary artery disease Diabetic neuropathy Hyperlipidemia Hypertension Insulin dependent type 2 diabetes mellitus Osteomyelitis Paroxysmal atrial fibrillation Stage 3b chronic kidney disease Urinary retention Surgical History Surgical History History of amputation of toe History of coronary artery bypass graft History of hysterectomy Family History Family History Sibling Thymus cancer Diabetes mellitus All 4 siblings Lung cancer, lower lobe Melanoma Lymph edema Mother Family history of emphysema Father Acute myocardial infarction Social History Social History Social History: Surrogate medical decision maker: Natan Marquez, spouse. Code status: Full code. Smoking packs per day: 1 Smoking cigarettes per day: 20.0 Years smoked: 30 Smoking pack-years: 30.00 Smoking status: Former smoker Tobacco type: cigarettes Second hand tobacco smoke exposure: Yes ( smokes) Smoking end date: 03/15/06 Alcohol intake: never Substance use: never Substance use type: marijuana Do You Feel Safe in your Home?: Yes Lack of Transportation: YES Lack of Food: Never True Current Housing: I Have Housing Concerned About Future Housing: No Difficulty Payin
[2023-11-16 14:07] LABS: Anion Gap 11 mmol/L (4-12); Blood Urea Nitrogen 48 mg/dL (7-17); Calcium 8.4 mg/dL (8.4-10.2); Carbon Dioxide 14 mmol/L (22-30); Chloride 111 mmol/L (98-107); Estimated CRCL calculation 26 ml/min; Estimated Glomerular Filt Rate 18; Glucose 113 mg/dL (65-110); Potassium 5.4 mmol/L (3.4-5.0); Sodium 136 mmol/L (137-145)
--- NOTE | 2023-11-16 14:25 | P.CONNP_ITS ---
Assessment and Plan Assessment and plan (1) FRANCY (acute kidney injury): Code(s): N17.9 - Acute kidney failure, unspecified Status: Chronic Assessment and Plan: * marked decline in kidney function noted (see #2) * started worsening in late 2022 with creatinine up to 1.7 - 2.2mg/dl * however, during hospitalization (at [facility]) in July 2023, creatinine improved back to 1.4 - 1.5mg/dl * then, in June 2023, jumped up to 2.7mg/dl * admission creatinine uop to 2.8mg/dl * is this really Francy/ARF or is this just a manifestation of chronic kidney disease progression?? * now complicated by anasarca/volume overload * follow trend of renal function with current interventions... (2) Stage 3b chronic kidney disease: Code(s): N18.32 - Chronic kidney disease, stage 3b Status: Chronic Assessment and Plan: * due to biopsy proven diabetic nephropathy/nephrosclerosis (biopsy done in November 2021) in conjunction with vascular disease * evidence of chronic kidney disease that dates back as far as 2016 * had been running 1.1 - 1.6mg/dl for the last few years but is known to have worsened to the 2ish range with her hospitalization/acute infections * recent rise in creatinine noted in September 2023 (see #1) (3) Anasarca: Code(s): R60.1 - Generalized edema Status: Acute Assessment and Plan: * as noted by physical exam and imaging studies * BNP elevated as well * Echo ordered * initiated on IV bumex * manifestation of previous known nephrotic range proteinuria (?) * however, albumin normal * check random urine protein/creatinine ratio * follow I/Os and daily weights (4) Chronic anemia: Code(s): D64.9 - Anemia, unspecified Status: Chronic Assessment and Plan: * suspect related to FRANCY versus CKD * follow trend of H/H * consider TRACY while hospitalized (5) Diarrhea: Qualifiers: Diarrhea type: presumed infectious Qualified Code(s): R19.7 - Diarrhea, unspecified Code(s): R19.7 - Diarrhea, unspecified Status: Acute Assessment and Plan: * improving at this time * no significant findings by admission CT scan * stool culture pending * C. difficile toxin assay negative * follow clinical symptoms (6) Thigh shingles: Code(s): B02.9 - Zoster without complications Status: Suspected Assessment and Plan: * suspected based on clinical appearance * started on Valtrex (7) Type 2 diabetes mellitus, uncontrolled, with renal complications: Status: Chronic Assessment and Plan: * follow accu-cheks * glycemic control per hospitalists I will continue to follow the patient with you while she remains hospitalized and make further recommendations as deemed necessary. Thank you for allowing me to participate in the care of this patient. History of Present Illness Reason for Consult Consult date: 11/16/23 Reason for consult: acute renal failure (on chronic kidney disease) Chief Complaint Chief complaint: Anasarca/Fluid Overload/CKD/Hyperk History of Present Illness Narrative: The patient is a 68-year-old female with a past medical history as outlined below who presented to [facility] Emergency Room with complaints of diarrhea and weakness. The patient states that the diarrhea started about 24 hours ago and reports almost 10 episodes yesterday and approximately 4 episodes today prior to her presentation to the ER. She denies any melena but does state that she thought she noticed some faint brig
--- NOTE | 2023-11-16 14:25 | PM.CNNEP ---
Assessment and Plan Assessment and plan (1) FRANCY (acute kidney injury): Code(s): N17.9 - Acute kidney failure, unspecified Status: Chronic Assessment and Plan: marked decline in kidney function noted (see #2) started worsening in late 2022 with creatinine up to 1.7 - 2.2mg/dl however, during hospitalization (at [facility]) in July 2023, creatinine improved back to 1.4 - 1.5mg/dl then, in June 2023, jumped up to 2.7mg/dl admission creatinine uop to 2.8mg/dl is this really Francy/ARF or is this just a manifestation of chronic kidney disease progression?? now complicated by anasarca/volume overload follow trend of renal function with current interventions... (2) Stage 3b chronic kidney disease: Code(s): N18.32 - Chronic kidney disease, stage 3b Status: Chronic Assessment and Plan: due to biopsy proven diabetic nephropathy/nephrosclerosis (biopsy done in November 2021) in conjunction with vascular disease evidence of chronic kidney disease that dates back as far as 2017 had been running 1.1 - 1.6mg/dl for the last few years but is known to have worsened to the 2ish range with her hospitalization/acute infections recent rise in creatinine noted in September 2023 (see #1) (3) Anasarca: Code(s): R60.1 - Generalized edema Status: Acute Assessment and Plan: as noted by physical exam and imaging studies BNP elevated as well Echo ordered initiated on IV bumex manifestation of previous known nephrotic range proteinuria (?) however, albumin normal check random urine protein/creatinine ratio follow I/Os and daily weights (4) Chronic anemia: Code(s): D64.9 - Anemia, unspecified Status: Chronic Assessment and Plan: suspect related to FRANCY versus CKD follow trend of H/H consider TRACY while hospitalized (5) Diarrhea: Qualifiers: Diarrhea type: presumed infectious Qualified Code(s): R19.7 - Diarrhea, unspecified Code(s): R19.7 - Diarrhea, unspecified Status: Acute Assessment and Plan: improving at this time no significant findings by admission CT scan stool culture pending C. difficile toxin assay negative follow clinical symptoms (6) Thigh shingles: Code(s): B02.9 - Zoster without complications Status: Suspected Assessment and Plan: suspected based on clinical appearance started on Valtrex (7) Type 2 diabetes mellitus, uncontrolled, with renal complications: Status: Chronic Assessment and Plan: follow accu-cheks glycemic control per hospitalists I will continue to follow the patient with you while she remains hospitalized and make further recommendations as deemed necessary. Thank you for allowing me to participate in the care of this patient. History of Present Illness Reason for Consult Consult date: 11/16/23 Reason for consult: acute renal failure (on chronic kidney disease) Chief Complaint Chief complaint: Anasarca/Fluid Overload/CKD/Hyperk History of Present Illness Narrative: The patient is a 68-year-old female with a past medical history as outlined below who presented to [facility] Emergency Room with complaints of diarrhea and weakness. The patient states that the diarrhea started about 24 hours ago and reports almost 10 episodes yesterday and approximately 4 episodes today prior to her presentation to the ER. She denies any melena but does state that she thought she noticed some faint bright red blood when she wiped following her loose stools. Her diarrhea was accompanied by diffuse abdominal pain and generalized weakness. The pain seems to be somewhat constant with no radiation or aggravated/of leaving factors and states that her abdominal pain is more of a ?discomfort rather than pain. No associated nausea, vomiting, fevers, chills, or poor appetite. Other associated symptoms include orthopnea for the past 2 months and
--- NOTE | 2023-11-16 14:53 | ADMGEN ---
This patient, Kylie Marquez, was admitted to IMU Room 231-01 at 1317. Patient/family oriented to hospital policies and general routines including ID bracelet, bed and alarms, visiting hours, pain management, procedures, bathroom and other care routines, personal items, smoking policy, room service/diet, and visiting hours. Information on how to activate the Rapid Response Team has been discussed. Patient/Family are encouraged to report perceived risks to care and to ask questions if they do not understand what they are told or what they should do.
[2023-11-16] MEDS: BUMETANIDE INJ 1 MG/4 ML VIAL IV PUSH (16:52)
[2023-11-16] MEDS: FLUCONAZOLE 150 MG TABLET PO (16:52)
[2023-11-16] MEDS: INSULIN ASPART (*BKC) 100 UNITS/ML 10 UNITS SUB-Q (16:53)
[2023-11-16 17:00] LABS: Glucose Point of Care 195 mg/dl (65-105)
[2023-11-16] MEDS: PIPERACILLIN/TAZ 2.25G/NS 50ML 2.25 GM/50 ML BAG IVPB (18:09)
[2023-11-16 20:58] LABS: Glucose Point of Care 151 mg/dl (65-105)
[2023-11-16] MEDS: INSULIN GLARGINE (*BKC) 100 UNITS/ML 28 UNITS SUB-Q (22:01)
[2023-11-16] MEDS: APIXABAN 5 MG TABLET PO (22:02)
[2023-11-16] MEDS: traZODone HCL 50 MG TABLET PO (22:03)
[2023-11-16] MEDS: valACYclovir HCL 500 MG TABLET 1000 MG PO (22:03)
[2023-11-16] MEDS: ATORVASTATIN 40 MG TABLET PO (22:03)
[2023-11-16] MEDS: TOLNAFTATE 1% POWDER 45 GM BTL 1 APPLIC TOPICAL (22:04)
[2023-11-17] VITALS (21 sets, daily range): BP systolic 112–134; BP diastolic 52–76; PULSE 74–109; RESP 15–20; TEMP 35.6–36.6; O2SAT 95–100
[2023-11-17] MEDS: PIPERACILLIN/TAZ 2.25G/NS 50ML 2.25 GM/50 ML BAG IVPB ×5 (00:51→21:41)
[2023-11-17 05:29] LABS: Basophils Percent Auto 0.7 % (0.2-1.2); Eosinophils Absolute Auto 0.2 K/mm3 (0-0.3); Eosinophils Percent Auto 3.3 % (0-4.4); Hematocrit 23.4 % (37.0-47.0); Immature Granulocyte Absolute 0.02 K/mm3 (0.00-0.031); Immature Granulocyte Percent A 0.4 % (0-0.5); Lymphocytes Percent Auto 20.2 % (18.3-44.2); Mean Corpuscular HGB Conc 29.5 g/dl (32-36); Mean Corpuscular Hemoglobin 23.5 pg (26-34); Mean Corpuscular Volume 79.9 fl (80-100); Mean Platelet Volume 10.2 fl (7.4-10.4); Monocytes Absolute Auto 0.4 K/mm3 (0.1-0.6); Monocytes Percent Auto 8.1 % (2.6-8.5); Neutrophils Absolute Auto 3.7 K/mm3 (1.3-6.7); Neutrophils Percent Auto 67.3 % (45.5-73.1); Platelet Count Result 186 k/mm3 (150-375); Red Blood Count 2.93 M/mm3 (4.2-5.4); Red Cell Distribution Width 18.6 % (11.5-14.5); White Blood Count 5.5 K/mm3 (4.5-10.0)
[2023-11-17 05:43] LABS: Alanine Aminotransferase 9 U/L (6-35); Albumin Level 2.7 g/dL (3.5-5.1); Alkaline Phosphatase 109 U/L (38-126); Anion Gap 8 mmol/L (4-12); Aspartate Amino Transferase 14 U/L (14-36); Bilirubin,Total 0.3 mg/dL (0.2-1.3); Blood Urea Nitrogen 50 mg/dL (7-17); Calcium 8.1 mg/dL (8.4-10.2); Carbon Dioxide 19 mmol/L (22-30); Chloride 110 mmol/L (98-107); Estimated CRCL calculation 26 ml/min; Estimated Glomerular Filt Rate 18; Glucose 48 mg/dL (65-110); Sodium 137 mmol/L (137-145)
[2023-11-17 05:47] LABS: Vancomycin Random 10.8 ug/mL (10-20)
[2023-11-17] MEDS: DEXTROSE 50% 25 GM/50 ML SYRINGE IV PUSH (05:54)
[2023-11-17 05:56] LABS: Hemoglobin 6.9 g/dL (12.0-15.0)
[2023-11-17] MEDS: valACYclovir HCL 500 MG TABLET 1000 MG PO ×3 (05:56→21:11)
[2023-11-17] MEDS: LEVOTHYROXINE SODIUM 112 MCG TABLET PO (05:57)
[2023-11-17] MEDS: LEVOTHYROXINE SODIUM 25 MCG TABLET PO (05:57)
[2023-11-17 06:28] LABS: Platelet Estimate Adequate (Adequate)
[2023-11-17 06:29] LABS: Anisocytosis 1+; Burr Cells 1+; Ovalocytes 1+; Schistocytes None Seen
[2023-11-17 06:35] LABS: Glucose Point of Care 82 mg/dl (65-105)
[2023-11-17 07:57] LABS: Glucose Point of Care 54 mg/dl (65-105)
[2023-11-17] MEDS: VANCOMYCIN 1,500 MG/NS 500 ML 1,500 MG/500 ML BAG 250 MG IVPB (08:22)
[2023-11-17] MEDS: ASCORBIC ACID 125 MG TABLET PO (08:23)
[2023-11-17] MEDS: lisinopriL 20 MG TABLET 40 MG PO (08:23)
[2023-11-17] MEDS: APIXABAN 5 MG TABLET PO ×2 (08:23→21:12)
[2023-11-17] MEDS: amLODIPine BESYLATE 2.5 MG TABLET PO (08:23)
[2023-11-17] MEDS: FERROUS SULFATE DRIED 142 MG TABCR PO (08:24)
[2023-11-17] MEDS: FAMOTIDINE 20 MG TABLET 40 MG PO (08:24)
[2023-11-17] MEDS: BUMETANIDE INJ 1 MG/4 ML VIAL 1.5 MG IV PUSH ×2 (08:24→16:39)
[2023-11-17] MEDS: TOLNAFTATE 1% POWDER 45 GM BTL 1 APPLIC TOPICAL ×2 (08:26→21:12)
[2023-11-17 10:14] LABS: Iron 24 ug/dL (37-170)
[2023-11-17 10:25] LABS: Percent Iron Saturation 7 % (20-50)
[2023-11-17] MEDS: TUBING, BLOOD PLUM PUMP TUBING 1 EACH XX (11:00)
[2023-11-17] MEDS: SODIUM CHLORIDE 0.9% IV 250 ML 30 ML IV CONT (11:00)
[2023-11-17 11:22] LABS: Glucose Point of Care 112 mg/dl (65-105)
[2023-11-17 11:35] LABS: Glucose Point of Care 101 mg/dl (65-105)
--- NOTE | 2023-11-17 13:18 | PM.PNNEP ---
Progress Note: A&P Assessment and Plan (1) FRANCY (acute kidney injury): Code(s): N17.9 - Acute kidney failure, unspecified Status: Chronic Assessment and Plan: marked decline in kidney function noted (see #2) started worsening in late 2022 with creatinine up to 1.7 - 2.2mg/dl however, during hospitalization (at [facility]) in July 2023, creatinine improved back to 1.4 - 1.5mg/dl then, in June 2023, jumped up to 2.7mg/dl admission creatinine uop to 2.8mg/dl is this really Francy/ARF or is this just a manifestation of chronic kidney disease progression?? now complicated by anasarca/volume overload follow trend of renal function with current interventions... (2) Stage 3b chronic kidney disease: Code(s): N18.32 - Chronic kidney disease, stage 3b Status: Chronic Assessment and Plan: due to biopsy proven diabetic nephropathy/nephrosclerosis (biopsy done in November 2021) in conjunction with vascular disease evidence of chronic kidney disease that dates back as far as 2017 had been running 1.1 - 1.6mg/dl for the last few years but is known to have worsened to the 2ish range with her hospitalization/acute infections recent rise in creatinine noted in September 2023 (see #1) (3) Anasarca: Code(s): R60.1 - Generalized edema Status: Acute Assessment and Plan: as noted by physical exam and imaging studies BNP elevated as well Echo ordered initiated on IV bumex - will increase dose manifestation of previous known nephrotic range proteinuria (?) however, albumin normal proteinuria present but not nephrotic follow I/Os and daily weights (4) Chronic anemia: Code(s): D64.9 - Anemia, unspecified Status: Chronic Assessment and Plan: suspect related to FRANCY versus CKD evidence of iron deficiency noted by anemia studies follow trend of H/H consider TRACY while hospitalized (5) Diarrhea: Qualifiers: Diarrhea type: presumed infectious Qualified Code(s): R19.7 - Diarrhea, unspecified Code(s): R19.7 - Diarrhea, unspecified Status: Acute Assessment and Plan: improving at this time no significant findings by admission CT scan stool culture pending C. difficile toxin assay negative follow clinical symptoms (6) Ulcer of lower extremity: Qualifiers: Laterality: left Non-pressure ulcer stage: limited to breakdown of skin Qualified Code(s): L97.921 - Non-pressure chronic ulcer of unspecified part of left lower leg limited to breakdown of skin Code(s): L97.909 - Non-pressure chronic ulcer of unspecified part of unspecified lower leg with unspecified severity Status: Acute Assessment and Plan: complicated by possible cellulitis(?) follow culture data on antibiotics (7) Thigh shingles: Code(s): B02.9 - Zoster without complications Status: Suspected Assessment and Plan: suspected based on clinical appearance started on Valtrex (8) Type 2 diabetes mellitus, uncontrolled, with renal complications: Status: Chronic Assessment and Plan: follow accu-cheks glycemic control per hospitalists Will continue to follow Subjective Date/time seen: 11/17/23 13:18 Interval history: Follow-up for acute kidney injury/acute renal failure on chronic kidney dissease (versus progression of CKD). Swelling/edema still present and despite IV diuresis, no real significant change; low H/H by AM labs so getting PRBC transfusion at this time; no acute distress noted at the time of my visit; diarrhea appears to have resolved. Exam Narrative: General: WD/WN female in NAD Heart: normal S1 and S2; no rub Lungs: clear anteriorly; decreased at bases Abdomen: soft, nontender, nondistended, positive bowel sounds Extremities: no cyanosis or clubbing; 2 - 3+ edema Skin: erythema in LLE in association with wound Objective Data Vital Signs
--- NOTE | 2023-11-17 13:18 | P.PNNP_ITS ---
Progress Note: A&P Assessment and Plan (1) FRANCY (acute kidney injury): Code(s): N17.9 - Acute kidney failure, unspecified Status: Chronic Assessment and Plan: * marked decline in kidney function noted (see #2) * started worsening in late 2022 with creatinine up to 1.7 - 2.2mg/dl * however, during hospitalization (at [facility]) in July 2023, creatinine improved back to 1.4 - 1.5mg/dl * then, in June 2023, jumped up to 2.7mg/dl * admission creatinine uop to 2.8mg/dl * is this really Francy/ARF or is this just a manifestation of chronic kidney disease progression?? * now complicated by anasarca/volume overload * follow trend of renal function with current interventions... (2) Stage 3b chronic kidney disease: Code(s): N18.32 - Chronic kidney disease, stage 3b Status: Chronic Assessment and Plan: * due to biopsy proven diabetic nephropathy/nephrosclerosis (biopsy done in November 2021) in conjunction with vascular disease * evidence of chronic kidney disease that dates back as far as 2016 * had been running 1.1 - 1.6mg/dl for the last few years but is known to have worsened to the 2ish range with her hospitalization/acute infections * recent rise in creatinine noted in September 2023 (see #1) (3) Anasarca: Code(s): R60.1 - Generalized edema Status: Acute Assessment and Plan: * as noted by physical exam and imaging studies * BNP elevated as well * Echo ordered * initiated on IV bumex - will increase dose * manifestation of previous known nephrotic range proteinuria (?) * however, albumin normal * proteinuria present but not nephrotic * follow I/Os and daily weights (4) Chronic anemia: Code(s): D64.9 - Anemia, unspecified Status: Chronic Assessment and Plan: * suspect related to FRANCY versus CKD * evidence of iron deficiency noted by anemia studies * follow trend of H/H * consider TRACY while hospitalized (5) Diarrhea: Qualifiers: Diarrhea type: presumed infectious Qualified Code(s): R19.7 - Diarrhea, unspecified Code(s): R19.7 - Diarrhea, unspecified Status: Acute Assessment and Plan: * improving at this time * no significant findings by admission CT scan * stool culture pending * C. difficile toxin assay negative * follow clinical symptoms (6) Ulcer of lower extremity: Qualifiers: Laterality: left Non-pressure ulcer stage: limited to breakdown of skin Qualified Code(s): L97.921 - Non-pressure chronic ulcer of unspecified part of left lower leg limited to breakdown of skin Code(s): L97.909 - Non-pressure chronic ulcer of unspecified part of unspecified lower leg with unspecified severity Status: Acute Assessment and Plan: * complicated by possible cellulitis(?) * follow culture data * on antibiotics (7) Thigh shingles: Code(s): B02.9 - Zoster without complications Status: Suspected Assessment and Plan: * suspected based on clinical appearance * started on Valtrex (8) Type 2 diabetes mellitus, uncontrolled, with renal complications: Status: Chronic Assessment and Plan: * follow accu-cheks * glycemic control per hospitalists Will continue to follow Subjective Date/time seen: 11/17/23 13:18 Interval history: Follow-up for acute kidney injury/acute renal failure on chronic kidney dissease (versus progression of CKD). Swelling/edema still present and despite IV diuresis, no real significant change; low H/H b
[2023-11-17 15:56] LABS: Glucose Point of Care 121 mg/dl (65-105)
--- NOTE | 2023-11-17 16:14 | PM.IMPN ---
Progress Note: A&P Assessment and Plan (1) Diarrhea: Qualifiers: Diarrhea type: presumed infectious Qualified Code(s): R19.7 - Diarrhea, unspecified Code(s): R19.7 - Diarrhea, unspecified Status: Acute Assessment and Plan: - CT abd/pelvis: Moderate bilateral pleural effusions. Moderate abdominopelvic ascites. Cholelithiasis. Diffuse soft tissue anasarca. - C. diff negative - stool culture pending diarrhea resolved (2) Thigh shingles: Code(s): B02.9 - Zoster without complications Status: Suspected Assessment and Plan: - patch to proximal/anterior left thigh that started as small vesicles. Vesicles have since ruptured, area is erythematous/open without crusting. Isolation precautions ordered - started on Valtrex due to age (3) Ulcer of lower extremity: Qualifiers: Laterality: left Non-pressure ulcer stage: limited to breakdown of skin Qualified Code(s): L97.921 - Non-pressure chronic ulcer of unspecified part of left lower leg limited to breakdown of skin Code(s): L97.909 - Non-pressure chronic ulcer of unspecified part of unspecified lower leg with unspecified severity Status: Acute Assessment and Plan: - ADELA ordered of LLE - low suspicion for DVT given patient is on Eliquis - wound consulted - started on Vancomycin on 11/15, will add Zosyn - will add ANNETTE, previously negative in 2020 - DDx: high suspicion for peripheral artery disease, cannot exclude SLE or bullous pemphigoid. (4) Anasarca: Code(s): R60.1 - Generalized edema Status: Acute Assessment and Plan: - BNP elevated, echo ordered (no previous on file) - on Bumex 2 mg PO daily, will continue as Bumex 1 mg BID IVP - TSH elevated with low t4, may need levothyroxine titrated. Currently on 137 mcg daily, outside med rec showed patient has been on 125 mcg daily. Patient unable to clarify. - albumin WNL (5) Swelling of vagina: Code(s): N89.9 - Noninflammatory disorder of vagina, unspecified Status: Acute Assessment and Plan: - anasarca vs yeast infection vs combination thereof - Diflucan 150 mg PO x1 - tolnaftate powder (6) Chronic diastolic (congestive) heart failure: Code(s): I50.32 - Chronic diastolic (congestive) heart failure Status: Chronic Assessment and Plan: - BNP 20,300 - no echo on file, update - currently on: Bumex 2 mg daily, continue lasix 60mg bid - daily weights - monitor I&Os - trend renal function (7) Stage 3b chronic kidney disease: Code(s): N18.32 - Chronic kidney disease, stage 3b Status: Chronic Assessment and Plan: - creatinine 2.8 and GFR 17, previously 2.7 and GFR 18 on 10/11/2023 - nephrology consulted - trend renal function - trend electrolytes, correct as needed (8) Chronic anemia: Code(s): D64.9 - Anemia, unspecified Status: Chronic Assessment and Plan: - hemoglobin 6.9, isat 7 and - baseline hemoglobin appears to be 8-9 - transfuse 1 unit pRBC (9) Type 2 diabetes mellitus, uncontrolled, with renal complications: Status: Chronic Assessment and Plan: - hypoglycemia protocol - POC blood glucose ACHS - home medication: lispro 10 units t.i.d. with meals, Tresiba 28 units HS - correct regimen ordered - moderate dose TIDWM, based off TDD - A1C 9.5% on 10/11/2023 Plan Diet: Heart healthy GI Prophylaxis: Not currently indicated DVT Prophylaxis: Continue home Eliquis Lines: Peripheral Code Status: Subjective Date/time seen: 11/17/23 16:14 Interval history: Patient comfortable at bedside, noted resolution of diarrhea but stated she is swollen all over Review of Systems Review of Systems: All systems reviewed & are unremarkable except as noted in HPI and below Exam Narrative: General: alert and comfortable Eyes: EOMI, PERRLA ENNT External ears normal, Neck is s
[2023-11-17 16:36] LABS: Glucose Point of Care 110 mg/dl (65-105)
[2023-11-17] MEDS: FUROSEMIDE INJ 40 MG/4 ML VIAL 60 MG IV PUSH (16:40)
[2023-11-17] MEDS: IRON SUCROSE COMPLEX 400 MG, IRON SUCROSE COMPLEX 100 MG in SODIUM CHLORIDE 0.9% IV 250 ML 78.57 MG IVPB (17:33)
--- NOTE | 2023-11-17 17:39 | PC.NURSE ---
On 11/17/23, the student, Emilia [facility], provided care and completed [facility] documentation on this patient. I have reviewed the student's documentation and agree with the findings.
[2023-11-17 20:40] LABS: Glucose Point of Care 119 mg/dl (65-105)
[2023-11-17] MEDS: traZODone HCL 50 MG TABLET PO (21:12)
[2023-11-17] MEDS: ATORVASTATIN 40 MG TABLET PO (21:12)
--- NOTE | 2023-11-17 21:31 | PC.NURSE ---
Pt did not receive previously scheduled 1800 dose of zosyn, delayed by blood and iron infusions. Called pharmacy to rescan
[2023-11-17] MEDS: INSULIN GLARGINE (*BKC) 100 UNITS/ML 15 UNITS SUB-Q (21:41)
[2023-11-17] MEDS: hydrOXYzine pamoate 25 MG CAPSULE 50 MG PO (21:48)
[2023-11-18] VITALS (18 sets, daily range): BP systolic 103–125; BP diastolic 56–71; PULSE 73–92; RESP 18–20; TEMP 36.1–36.6; O2SAT 96–99
[2023-11-18 00:52] LABS: Glucose Point of Care 123 mg/dl (65-105)
[2023-11-18 04:56] LABS: Glucose Point of Care 88 mg/dl (65-105)
[2023-11-18 05:40] LABS: Estimated CRCL calculation 26 ml/min; Estimated Glomerular Filt Rate 18
[2023-11-18 05:47] LABS: Vancomycin Trough 16.9 ug/mL (10.0-20.0)
[2023-11-18] MEDS: valACYclovir HCL 500 MG TABLET 1000 MG PO ×3 (05:48→21:31)
[2023-11-18] MEDS: LEVOTHYROXINE SODIUM 112 MCG TABLET PO (05:49)
[2023-11-18] MEDS: PIPERACILLIN/TAZ 2.25G/NS 50ML 2.25 GM/50 ML BAG IVPB (05:49)
[2023-11-18] MEDS: LEVOTHYROXINE SODIUM 25 MCG TABLET PO (05:49)
[2023-11-18 07:24] LABS: Basophils Absolute Auto 0.1 K/mm3 (0.0-0.1); Basophils Percent Auto 0.9 % (0.2-1.2); Eosinophils Absolute Auto 0.2 K/mm3 (0-0.3); Eosinophils Percent Auto 3.7 % (0-4.4); Hematocrit 26.4 % (37.0-47.0); Immature Granulocyte Absolute 0.02 K/mm3 (0.00-0.031); Immature Granulocyte Percent A 0.4 % (0-0.5); Lymphocytes Absolute Auto 0.97 K/mm3 (0.9-3.2); Mean Corpuscular HGB Conc 30.3 g/dl (32-36); Mean Corpuscular Hemoglobin 24.3 pg (26-34); Mean Corpuscular Volume 80.2 fl (80-100); Mean Platelet Volume 10.6 fl (7.4-10.4); Monocytes Absolute Auto 0.4 K/mm3 (0.1-0.6); Monocytes Percent Auto 7.6 % (2.6-8.5); Neutrophils Absolute Auto 3.7 K/mm3 (1.3-6.7); Neutrophils Percent Auto 69.4 % (45.5-73.1); Platelet Count Result 203 k/mm3 (150-375); Red Blood Count 3.29 M/mm3 (4.2-5.4); Red Cell Distribution Width 18.6 % (11.5-14.5); White Blood Count 5.4 K/mm3 (4.5-10.0)
[2023-11-18 07:31] LABS: Anion Gap 11 mmol/L (4-12); Blood Urea Nitrogen 50 mg/dL (7-17); Calcium 8.1 mg/dL (8.4-10.2); Carbon Dioxide 17 mmol/L (22-30); Chloride 109 mmol/L (98-107); Estimated CRCL calculation 27 ml/min; Estimated Glomerular Filt Rate 18; Glucose 91 mg/dL (65-110); Potassium 4.7 mmol/L (3.4-5.0); Sodium 137 mmol/L (137-145)
[2023-11-18 08:04] LABS: Glucose Point of Care 75 mg/dl (65-105)
[2023-11-18] MEDS: lisinopriL 20 MG TABLET 40 MG PO (08:57)
[2023-11-18] MEDS: FERROUS SULFATE DRIED 142 MG TABCR PO (08:57)
[2023-11-18] MEDS: FAMOTIDINE 20 MG TABLET 40 MG PO (08:57)
[2023-11-18] MEDS: ASCORBIC ACID 125 MG TABLET PO (08:57)
[2023-11-18] MEDS: amLODIPine BESYLATE 2.5 MG TABLET PO (08:57)
[2023-11-18] MEDS: BUMETANIDE INJ 1 MG/4 ML VIAL 1.5 MG IV PUSH ×2 (08:57→16:56)
[2023-11-18] MEDS: APIXABAN 5 MG TABLET PO (08:58)
[2023-11-18] MEDS: FUROSEMIDE INJ 40 MG/4 ML VIAL 60 MG IV PUSH (08:58)
[2023-11-18] MEDS: VANCOMYCIN 1,500 MG/NS 500 ML 1,500 MG/500 ML BAG 250 MG IVPB (09:12)
[2023-11-18] MEDS: TOLNAFTATE 1% POWDER 45 GM BTL 1 APPLIC TOPICAL ×2 (09:13→21:33)
[2023-11-18] MEDS: INSULIN ASPART (*BKC) 100 UNITS/ML 10 UNITS SUB-Q (09:18)
[2023-11-18 09:22] LABS: Glucose Point of Care 111 mg/dl (65-105)
[2023-11-18 10:22] LABS: IFOB Positive Control Positive; Immunochemical Fecal Occult Bl Positive (N)
--- NOTE | 2023-11-18 10:57 | PM.IMPN ---
Progress Note: A&P Assessment and Plan (1) Diarrhea: Qualifiers: Diarrhea type: presumed infectious Qualified Code(s): R19.7 - Diarrhea, unspecified Code(s): R19.7 - Diarrhea, unspecified Status: Acute Assessment and Plan: - CT abd/pelvis: Moderate bilateral pleural effusions. Moderate abdominopelvic ascites. Cholelithiasis. Diffuse soft tissue anasarca. - C. diff negative - stool culture pending diarrhea resolved (2) Thigh shingles: Code(s): B02.9 - Zoster without complications Status: Suspected Assessment and Plan: - patch to proximal/anterior left thigh that started as small vesicles. Vesicles have since ruptured, area is erythematous/open without crusting. Isolation precautions ordered - started on Valtrex due to age (3) Ulcer of lower extremity: Qualifiers: Laterality: left Non-pressure ulcer stage: limited to breakdown of skin Qualified Code(s): L97.921 - Non-pressure chronic ulcer of unspecified part of left lower leg limited to breakdown of skin Code(s): L97.909 - Non-pressure chronic ulcer of unspecified part of unspecified lower leg with unspecified severity Status: Acute Assessment and Plan: - ADELA ordered of LLE - low suspicion for DVT given patient is on Eliquis - wound consulted - will add ANNETTE, previously negative in 2020 - DDx: high suspicion for peripheral artery disease, cannot exclude SLE or bullous pemphigoid. S/p Vanc and Zosyn Now on Doxy and Augmentin monitor (4) Anasarca: Code(s): R60.1 - Generalized edema Status: Acute Assessment and Plan: - BNP elevated, echo ordered (no previous on file) - on Bumex 2 mg PO daily, will continue as Bumex 1.5 mg BID IVP - TSH elevated with low t4, may need levothyroxine titrated. Currently on 137 mcg daily, outside med rec showed patient has been on 125 mcg daily. Patient unable to clarify. - albumin WNL (5) Swelling of vagina: Code(s): N89.9 - Noninflammatory disorder of vagina, unspecified Status: Acute Assessment and Plan: - anasarca vs yeast infection vs combination thereof - Diflucan 150 mg PO x1 - tolnaftate powder (6) Chronic diastolic (congestive) heart failure: Code(s): I50.32 - Chronic diastolic (congestive) heart failure Status: Chronic Assessment and Plan: - BNP 20,300 - no echo on file, update - currently on: Bumex 2 mg daily, continue Bumex 1.5mg IV bid per nephrology - daily weights - monitor I&Os - trend renal function (7) Stage 3b chronic kidney disease: Code(s): N18.32 - Chronic kidney disease, stage 3b Status: Chronic Assessment and Plan: - creatinine 2.8 and GFR 17, previously 2.7 and GFR 18 on 10/11/2023 - nephrology consulted - trend renal function - trend electrolytes, correct as needed nephrology following (8) Chronic anemia: Code(s): D64.9 - Anemia, unspecified Status: Chronic Assessment and Plan: - hemoglobin 6.9, isat 7 and - isat 7 and FOBT positiv e - s/p transfuse 1 unit pRBC S/p 1000/1000 mg of IV iron Start Protonic IV and GI consulted (9) Type 2 diabetes mellitus, uncontrolled, with renal complications: Status: Chronic Assessment and Plan: - hypoglycemia protocol - POC blood glucose ACHS - home medication: lispro 10 units t.i.d. with meals, Tresiba 28 units HS - correct regimen ordered Decreased lantus to 10 units daily, and monitor H and H - A1C 9.5% on 10/11/2023 Plan Diet: Heart healthy GI Prophylaxis: Not currently indicated DVT Prophylaxis: hold Eliquis Lines: Peripheral Code Status: Subjective Date/time seen: 11/18/23 10:57 Interval history: Patient comfortable at bedside, has positive FOBT this morning and adjusted lantus downwards to 10 units daily Review of Systems Review of Systems: All systems reviewed & are unremarkable except a
[2023-11-18] MEDS: IRON SUCROSE COMPLEX 400 MG, IRON SUCROSE COMPLEX 100 MG in SODIUM CHLORIDE 0.9% IV 250 ML 78.57 MG IVPB (11:19)
[2023-11-18] MEDS: AMOXICILLIN/CLAVULANATE K 875-125 MG TAB 1 TABLET PO ×2 (12:01→21:32)
[2023-11-18] MEDS: PANTOPRAZOLE SODIUM IV 40 MG VIAL IV PUSH ×2 (12:01→21:31)
[2023-11-18 12:03] LABS: Glucose Point of Care 73 mg/dl (65-105)
[2023-11-18] MEDS: DOXYCYCLINE 100 MG/NS 100 ML 100 MG/100 ML BAG IVPB ×2 (12:03→21:31)
[2023-11-18 12:15] LABS: Glucose Point of Care 76 mg/dl (65-105)
--- NOTE | 2023-11-18 12:49 | P.PNNP_ITS ---
Progress Note: A&P Assessment and Plan (1) FRANCY (acute kidney injury): Code(s): N17.9 - Acute kidney failure, unspecified Status: Chronic Assessment and Plan: * marked decline in kidney function noted (see #2) * started worsening in late 2022 with creatinine up to 1.7 - 2.2mg/dl * however, during hospitalization (at [facility]) in July 2023, creatinine improved back to 1.4 - 1.5mg/dl * then, in June 2023, jumped up to 2.7mg/dl * admission creatinine uop to 2.8mg/dl * is this really Francy/ARF or is this just a manifestation of chronic kidney disease progression?? * now complicated by anasarca/volume overload * follow trend of renal function with current interventions... (2) Stage 3b chronic kidney disease: Code(s): N18.32 - Chronic kidney disease, stage 3b Status: Chronic Assessment and Plan: * due to biopsy proven diabetic nephropathy/nephrosclerosis (biopsy done in November 2021) in conjunction with vascular disease * evidence of chronic kidney disease that dates back as far as 2016 * had been running 1.1 - 1.6mg/dl for the last few years but is known to have worsened to the 2ish range with her hospitalization/acute infections * recent rise in creatinine noted in September 2023 (see #1) (3) Anasarca: Code(s): R60.1 - Generalized edema Status: Acute Assessment and Plan: * as noted by physical exam and imaging studies * BNP elevated as well * Echo ordered * renal function tolerating diuresis with IV bumex * follow I/Os and daily weights (4) Chronic anemia: Code(s): D64.9 - Anemia, unspecified Status: Chronic Assessment and Plan: * suspect related to FRANCY versus CKD * evidence of iron deficiency noted by anemia studies - but also Hemoccult positive stools * GI consultation * PRBC transfusion per protocol * follow trend of H/H * consider TRACY while hospitalized (5) Ulcer of lower extremity: Qualifiers: Laterality: left Non-pressure ulcer stage: limited to breakdown of skin Qualified Code(s): L97.921 - Non-pressure chronic ulcer of unspecified part of left lower leg limited to breakdown of skin Code(s): L97.909 - Non-pressure chronic ulcer of unspecified part of unspecified lower leg with unspecified severity Status: Acute Assessment and Plan: * complicated by possible cellulitis(?) * follow culture data - negative to date * on antibiotics (6) Thigh shingles: Code(s): B02.9 - Zoster without complications Status: Suspected Assessment and Plan: * suspected based on clinical appearance * started on Valtrex (7) Type 2 diabetes mellitus, uncontrolled, with renal complications: Status: Chronic Assessment and Plan: * follow accu-cheks * glycemic control per hospitalists Will continue to follow Subjective Date/time seen: 11/18/23 12:49 Interval history: Follow-up for acute kidney injury/acute renal failure on chronic kidney disease. Tolerated PRBC transfusion yesterday without any difficulties; Gastroenterology consulted due to hemoccult positive stools; better diuresis in the last 24 hours but still with significant edema/swelling; no apparent distress noted at the time of my visit. Exam Narrative: General: WD/WN female in NAD Heart: normal S1 and S2; no rub Lungs: clear anteriorly; decreased at bases Abdomen: soft, nontender, nondistended, positive bowel sounds Extremities: no cyanosis or clubbing; 2 - 3+ edema Skin: improving eryt
--- NOTE | 2023-11-18 12:49 | PM.PNNEP ---
Progress Note: A&P Assessment and Plan (1) FRANCY (acute kidney injury): Code(s): N17.9 - Acute kidney failure, unspecified Status: Chronic Assessment and Plan: marked decline in kidney function noted (see #2) started worsening in late 2022 with creatinine up to 1.7 - 2.2mg/dl however, during hospitalization (at [facility]) in July 2023, creatinine improved back to 1.4 - 1.5mg/dl then, in June 2023, jumped up to 2.7mg/dl admission creatinine uop to 2.8mg/dl is this really Francy/ARF or is this just a manifestation of chronic kidney disease progression?? now complicated by anasarca/volume overload follow trend of renal function with current interventions... (2) Stage 3b chronic kidney disease: Code(s): N18.32 - Chronic kidney disease, stage 3b Status: Chronic Assessment and Plan: due to biopsy proven diabetic nephropathy/nephrosclerosis (biopsy done in November 2021) in conjunction with vascular disease evidence of chronic kidney disease that dates back as far as 2017 had been running 1.1 - 1.6mg/dl for the last few years but is known to have worsened to the 2ish range with her hospitalization/acute infections recent rise in creatinine noted in September 2023 (see #1) (3) Anasarca: Code(s): R60.1 - Generalized edema Status: Acute Assessment and Plan: as noted by physical exam and imaging studies BNP elevated as well Echo ordered renal function tolerating diuresis with IV bumex follow I/Os and daily weights (4) Chronic anemia: Code(s): D64.9 - Anemia, unspecified Status: Chronic Assessment and Plan: suspect related to FRANCY versus CKD evidence of iron deficiency noted by anemia studies - but also Hemoccult positive stools GI consultation PRBC transfusion per protocol follow trend of H/H consider TRACY while hospitalized (5) Ulcer of lower extremity: Qualifiers: Laterality: left Non-pressure ulcer stage: limited to breakdown of skin Qualified Code(s): L97.921 - Non-pressure chronic ulcer of unspecified part of left lower leg limited to breakdown of skin Code(s): L97.909 - Non-pressure chronic ulcer of unspecified part of unspecified lower leg with unspecified severity Status: Acute Assessment and Plan: complicated by possible cellulitis(?) follow culture data - negative to date on antibiotics (6) Thigh shingles: Code(s): B02.9 - Zoster without complications Status: Suspected Assessment and Plan: suspected based on clinical appearance started on Valtrex (7) Type 2 diabetes mellitus, uncontrolled, with renal complications: Status: Chronic Assessment and Plan: follow accu-cheks glycemic control per hospitalists Will continue to follow Subjective Date/time seen: 11/18/23 12:49 Interval history: Follow-up for acute kidney injury/acute renal failure on chronic kidney disease. Tolerated PRBC transfusion yesterday without any difficulties; Gastroenterology consulted due to hemoccult positive stools; better diuresis in the last 24 hours but still with significant edema/swelling; no apparent distress noted at the time of my visit. Exam Narrative: General: WD/WN female in NAD Heart: normal S1 and S2; no rub Lungs: clear anteriorly; decreased at bases Abdomen: soft, nontender, nondistended, positive bowel sounds Extremities: no cyanosis or clubbing; 2 - 3+ edema Skin: improving erythema in LLE in association with wound Objective Data Vital Signs Vital Signs: Vital Signs Temp Pulse Resp BP Pulse Ox O2 Del Method 11/18/23 12:00 73 11/18/23 11:12 97.3 F L 86 18 119/58 L 99 11/18/23 09:02 125/63 11/18/23 07:33 97.6 F 77 20 117/59 L 96 11/18/23 06:00 79 11/18/23 04:00 97.1 F L 84 20 115/58 L 99 11/18/23 04:00 Room Air 11/18/23 04:00 82 11/18/23 02:00 82
--- NOTE | 2023-11-18 13:14 | P.CONGI_ITS ---
I, Daniel Kessler MD, have provided a substantive portion of the care of this patient and discussed the patient with my Nurse Practitioner. I have reviewed any new relevant radiographic and laboratory results including medications. I agree with her documentation as noted below.?I personally performed the medical decision making and much of the history and exam for this encounter. 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 She was found to have anasarca, BNP 20k, creat 2.5, normal liver enzymes and lactic acid, Also anemia with + FOBT. Plans is to do egd/colonoscopy to assess if gi loss, anemia could be multifactorial from all her medical problem, also evaluated by nephrology. Assessment and Plan Assessment and plan (1) Diarrhea: Qualifiers: Diarrhea type: presumed infectious Qualified Code(s): R19.7 - Diarrhea, unspecified Code(s): R19.7 - Diarrhea, unspecified Status: Acute (2) GERD (gastroesophageal reflux disease): Qualifiers: Esophagitis presence: esophagitis presence not specified Qualified Code(s): K21.9 - Gastro-esophageal reflux disease without esophagitis Code(s): K21.9 - Gastro-esophageal reflux disease without esophagitis Status: Acute (3) Anemia of chronic disease: Code(s): D63.8 - Anemia in other chronic diseases classified elsewhere Status: Acute (4) Heme positive stool: Code(s): R19.5 - Other fecal abnormalities Status: Acute Plan 1) Diarrhea/ positive fecal occult blood: Patient admitted for anasarca secondary to CHF, shingles, and leg ulcers. Per patient last colonoscopy > 10 years ago. Family history negative for CRC or IBD. Patient denies any hematochezia or melena but states that she typically does not look at her stool. Patient noted to have heme-positive stools. C diff negative. The patient admits to diarrhea x1 day prior to admission. On the day of her ER visit she states she was having a bowel movement every 10-20 minutes that was liquid in urgent patient states she had a bowel movement today that was more formed and less urgent. No findings on CT to explain symptoms. Patient on Eliquis prior to and during hospitalization. DDX: Acute infectious/ inflammatory process versus malabsorption versus IBD * Colonoscopy tomorrow at which time we will obtain biopsies to rule out IBD or microscopic colitis * clear liquid diet today * bowel prep to start this evening * NPO after midnight * hold Eliquis 2) Anemia of chronic disease/Iron deficiency: Patient with chronic anemia since 2021 with HGB baseline around 7-8. HGB yesterday 6.9 and today 8.0. HCT 26, MCV 80, platelets 203. INR 1.4. Total iron 24, TIBC 321, iron saturation 7%, ferritin 11. Patient denies any signs of active GI bleeding. Patient currently receiving IV iron infusion. Patient received 1 unit PRBCs. * anemia likely multifactorial given multiple comorbidities including chronic kidney disease * given chronic nature and severity of anemia will also perform an EGD to rule out upper GI source of blood loss * if endoscopic evaluation is unremarkable may consider outpatient capsule endoscopy to evaluate small bowel * primary care team to continue monitoring H&H and transfuse as needed to keep HGB > 7 3) GERD: Patient has never had an EGD. Prior to admission patient was on famotidine 40 mg daily and reflux well controlled. * EGD tomorrow * Continue PPI Thank you very much for allowing me to share in the care of this very nice pat
--- NOTE | 2023-11-18 13:14 | WPDGICN ---
Assessment and Plan Assessment and plan (1) Diarrhea: Qualifiers: Diarrhea type: presumed infectious Qualified Code(s): R19.7 - Diarrhea, unspecified Code(s): R19.7 - Diarrhea, unspecified Status: Acute (2) GERD (gastroesophageal reflux disease): Qualifiers: Esophagitis presence: esophagitis presence not specified Qualified Code(s): K21.9 - Gastro-esophageal reflux disease without esophagitis Code(s): K21.9 - Gastro-esophageal reflux disease without esophagitis Status: Acute (3) Anemia of chronic disease: Code(s): D63.8 - Anemia in other chronic diseases classified elsewhere Status: Acute (4) Heme positive stool: Code(s): R19.5 - Other fecal abnormalities Status: Acute Plan 1) Diarrhea/ positive fecal occult blood: Patient admitted for anasarca secondary to CHF, shingles, and leg ulcers. Per patient last colonoscopy > 10 years ago. Family history negative for CRC or IBD. Patient denies any hematochezia or melena but states that she typically does not look at her stool. Patient noted to have heme-positive stools. C diff negative. The patient admits to diarrhea x1 day prior to admission. On the day of her ER visit she states she was having a bowel movement every 10-20 minutes that was liquid in urgent patient states she had a bowel movement today that was more formed and less urgent. No findings on CT to explain symptoms. Patient on Eliquis prior to and during hospitalization. DDX: Acute infectious/ inflammatory process versus malabsorption versus IBD Colonoscopy tomorrow at which time we will obtain biopsies to rule out IBD or microscopic colitis clear liquid diet today bowel prep to start this evening NPO after midnight hold Eliquis 2) Anemia of chronic disease/Iron deficiency: Patient with chronic anemia since 2021 with HGB baseline around 7-8. HGB yesterday 6.9 and today 8.0. HCT 26, MCV 80, platelets 203. INR 1.4. Total iron 24, TIBC 321, iron saturation 7%, ferritin 11. Patient denies any signs of active GI bleeding. Patient currently receiving IV iron infusion. Patient received 1 unit PRBCs. anemia likely multifactorial given multiple comorbidities including chronic kidney disease given chronic nature and severity of anemia will also perform an EGD to rule out upper GI source of blood loss if endoscopic evaluation is unremarkable may consider outpatient capsule endoscopy to evaluate small bowel primary care team to continue monitoring H&H and transfuse as needed to keep HGB > 7 3) GERD: Patient has never had an EGD. Prior to admission patient was on famotidine 40 mg daily and reflux well controlled. EGD tomorrow Continue PPI Thank you very much for allowing me to share in the care of this very nice patient. This report may have been done utilizing a voice recognition system. Attempts have been made to correct errors. However, there may be uncorrected grammatical, spelling, and recognition errors present. GI Consult Note Consult date/time: 11/18/23 13:14 Reason for consult: Diarrhea and heme positive stools HPI: This is a pleasant 68 year old female with a past medical surgical history of chronic anemia, CAD, diabetic neuropathy, hyperlipidemia, hypertension, type 2 diabetes, osteomyelitis, paroxysmal AFib, and CKD stage IIIB. She presented to the ER room 11/16/2023 with complaints of diarrhea. GI consulted for diarrhea. Patient states that prior to admission she was having severe diarrhea that started that day. Patient states that she was having a bowel movement every 10-20 minutes that was liquid. Since her admission her diarrhea has improved. Patient states that she had a sophomore formed bowel movement today. She has abdominal bloating secondary to ascites/anasarca. Denies abdominal pain, nausea, vomiting, odynophagia, dysphagia, reflux, regurgitation, early satiety, unexplained weight loss,
[2023-11-18] MEDS: BISACODYL 5 MG TABLET EC 20 MG PO (14:27)
[2023-11-18 16:15] LABS: Glucose Point of Care 127 mg/dl (65-105)
[2023-11-18 16:15] LABS: Glucose Point of Care 57 mg/dl (65-105)
[2023-11-18] MEDS: metOLazone 5 MG TABLET PO (16:56)
[2023-11-18] MEDS: polyethylene glycoL 3350 238 GM BOTTLE PO (17:29)
[2023-11-18] MEDS: hydrOXYzine pamoate 25 MG CAPSULE 50 MG PO (21:31)
[2023-11-18] MEDS: ATORVASTATIN 40 MG TABLET PO (21:32)
[2023-11-18] MEDS: traZODone HCL 50 MG TABLET PO (21:32)
[2023-11-18] MEDS: INSULIN GLARGINE (*BKC) 100 UNITS/ML 10 UNITS SUB-Q (21:37)
[2023-11-18 21:39] LABS: Glucose Point of Care 145 mg/dl (65-105)
[2023-11-19] VITALS (21 sets, daily range): BP systolic 99–113; BP diastolic 56–85; PULSE 68–91; RESP 16–22; TEMP 35.8–36.6; O2SAT 96–100
[2023-11-19] MEDS: MAGNESIUM CITRATE 300 ML BTL PO ×2 (02:09→06:21)
[2023-11-19] MEDS: LEVOTHYROXINE SODIUM 25 MCG TABLET PO (05:38)
[2023-11-19] MEDS: LEVOTHYROXINE SODIUM 112 MCG TABLET PO (05:38)
[2023-11-19] MEDS: valACYclovir HCL 500 MG TABLET 1000 MG PO ×3 (05:38→20:52)
[2023-11-19] MEDS: ACETAMINOPHEN 500 MG TABLET 1000 MG PO (05:43)
--- NOTE | 2023-11-19 06:10 | PC.NURSE ---
GI lab called and updated of patient's stool being brown liquid. Dr. Mix notified and ordered to give another dose of mag citrate. Will continue to monitor.
[2023-11-19] MEDS: hydrOXYzine pamoate 25 MG CAPSULE 50 MG PO ×2 (06:25→20:51)
[2023-11-19 06:51] LABS: Glucose Point of Care 76 mg/dl (65-105)
[2023-11-19 07:17] LABS: Basophils Percent Auto 0.5 % (0.2-1.2); Eosinophils Absolute Auto 0.3 K/mm3 (0-0.3); Eosinophils Percent Auto 4.8 % (0-4.4); Hematocrit 28.2 % (37.0-47.0); Hemoglobin 8.3 g/dL (12.0-15.0); Immature Granulocyte Absolute 0.03 K/mm3 (0.00-0.031); Immature Granulocyte Percent A 0.5 % (0-0.5); Mean Corpuscular HGB Conc 29.4 g/dl (32-36); Mean Corpuscular Volume 81.5 fl (80-100); Mean Platelet Volume 9.5 fl (7.4-10.4); Monocytes Absolute Auto 0.5 K/mm3 (0.1-0.6); Monocytes Percent Auto 8.1 % (2.6-8.5); Neutrophils Percent Auto 65.1 % (45.5-73.1); Platelet Count Result 204 k/mm3 (150-375); Red Blood Count 3.46 M/mm3 (4.2-5.4); Red Cell Distribution Width 19.1 % (11.5-14.5); White Blood Count 6.2 K/mm3 (4.5-10.0)
[2023-11-19 07:34] LABS: Alanine Aminotransferase 10 U/L (6-35); Albumin Level 3.2 g/dL (3.5-5.1); Alkaline Phosphatase 129 U/L (38-126); Anion Gap 11 mmol/L (4-12); Aspartate Amino Transferase 16 U/L (14-36); Bilirubin,Total 0.5 mg/dL (0.2-1.3); Blood Urea Nitrogen 46 mg/dL (7-17); Calcium 8.3 mg/dL (8.4-10.2); Carbon Dioxide 18 mmol/L (22-30); Chloride 108 mmol/L (98-107); Estimated CRCL calculation 26 ml/min; Estimated Glomerular Filt Rate 18; Glucose 69 mg/dL (65-110); Potassium 4.6 mmol/L (3.4-5.0); Sodium 137 mmol/L (137-145)
[2023-11-19 07:47] LABS: Platelet Estimate Adequate (Adequate)
[2023-11-19 07:48] LABS: Anisocytosis 1+; Hypochromasia 1+; Ovalocytes 1+; Poikilocytosis 1+; Schistocytes None Seen
[2023-11-19] MEDS: FERROUS SULFATE DRIED 142 MG TABCR PO (08:40)
[2023-11-19] MEDS: AMOXICILLIN/CLAVULANATE K 875-125 MG TAB 1 TABLET PO ×2 (08:40→20:42)
[2023-11-19] MEDS: ASCORBIC ACID 125 MG TABLET PO (08:40)
[2023-11-19] MEDS: lisinopriL 20 MG TABLET 40 MG PO (08:40)
[2023-11-19] MEDS: FAMOTIDINE 20 MG TABLET 40 MG PO (08:40)
[2023-11-19] MEDS: amLODIPine BESYLATE 2.5 MG TABLET PO (08:40)
[2023-11-19] MEDS: PANTOPRAZOLE SODIUM IV 40 MG VIAL IV PUSH (08:41)
[2023-11-19] MEDS: BUMETANIDE INJ 1 MG/4 ML VIAL 1.5 MG IV PUSH ×2 (08:41→18:05)
[2023-11-19] MEDS: DOXYCYCLINE 100 MG/NS 100 ML 100 MG/100 ML BAG IVPB ×2 (08:41→20:44)
[2023-11-19] MEDS: TOLNAFTATE 1% POWDER 45 GM BTL 1 APPLIC TOPICAL ×2 (08:42→20:43)
[2023-11-19 08:53] LABS: Glucose Point of Care 67 mg/dl (65-105)
[2023-11-19] MEDS: DEXTROSE 50% 25 GM/50 ML SYRINGE IV PUSH ×2 (08:57→11:27)
[2023-11-19] MEDS: MORPHINE SULFATE (*CRX) 2 MG/ML INJ IV PUSH (09:24)
[2023-11-19 09:36] LABS: Glucose Point of Care 96 mg/dl (65-105)
[2023-11-19] MEDS: LACTATED RINGERS 1,000 ML 150 ML IV CONT (09:57)
--- NOTE | 2023-11-19 10:30 | WPDANESEPPF ---
Anes - Initial Pre Proc Eval Procedure: Operation Date: 11/19/23 13:30 Proposed Procedures p Esophagogastroduodenoscopy & Colonoscopy - Daniel Kessler MD Date/Time: 11/19/23 10:30 Surgeon: Denise Lisa MD Pre Op Diagnosis: Anasarca/Fluid Overload/CKD/Hyperk Patient Data Age: 68 Gender: F Height: 1.78 m Weight: 116.8 kg Last Vital Signs Temp 97.0 F L 11/19/23 09:52 Pulse 73 11/19/23 09:52 Resp 20 11/19/23 09:52 BP 102/64 11/19/23 09:52 Pulse Ox 100 11/19/23 09:52 O2 Del Method Room Air 11/19/23 09:52 Allergies Allergy/AdvReac Type Severity Reaction Status Date / Time semaglutide [From Ozempic] AdvReac Unknown Verified 11/19/23 09:49 Home Medications Medication Instructions Recorded Confirmed Type famotidine 40 mg tablet 40 mg PO DAILY #90 tabs 09/05/11/16/23 Rx apixaban 5 mg tablet (Eliquis) 5 mg PO BID 09/21/21 11/19/23 History insulin degludec 100 unit/mL (3 28 unit subcut HS 09/22/21 11/16/23 History mL) subcutaneous pen (Tresiba FlexTouch U-100 insulin) amlodipine 2.5 mg tablet 2.5 mg PO QAM 1 month #30 tabs 10/21/21 11/16/23 Rx atorvastatin 40 mg tablet 40 mg PO HS 12/09/21 11/16/23 History cholecalciferol (vitamin D3) 50 1,250 mcg PO WEEKLY 12/09/21 11/16/23 History mcg (2,000 unit) tablet lisinopril 40 mg tablet 40 mg PO QAM 12/09/21 11/16/23 History hydroxyzine pamoate 50 mg capsule 50 mg PO TID PRN Anxiety 03/30/22 11/16/23 History levothyroxine 125 mcg tablet 137 mcg PO DAILY 04/17/22 11/16/23 History insulin pen,reusable,BT,lispro 12/14/22 11/16/23 History (InPen (for Humalog) Blue subcutaneous) acetaminophen 500 mg tablet 1,000 mg PO Q6H PRN Pain (Scale 10/11/23 11/16/23 History (Acetaminophen Extra Strength) Score 4-6) bumetanide 2 mg tablet 1 mg PO DAILY 10/11/23 11/16/23 History insulin lispro 100 unit/mL 10 unit subcut TIDWMEAL 10/11/23 11/16/23 History subcutaneous pen (Humalog KwikPen (U-100) Insulin) iron,carbonyl 30 mg-vitamin C 10 1 tablet PO BID 10/11/23 11/16/23 History mg-FOS 25 mg chewable tablet trazodone 50 mg tablet 50 mg PO HS 10/11/23 11/16/23 History Laboratory Tests 11/17/23 11/18/23 11/18/23 05:24 11:03 12:00 WBC RBC Hgb Hct MCV MCH MCHC RDW Plt Count MPV Immature Gran % (Auto) Neut % (Auto) Lymph % (Auto) Maries % (Auto) Eos % (Auto) Baso % (Auto) Lymph # (Auto) Maries # (Auto) Eos # (Auto) Baso # (Auto) Abs Immat Gran (auto) Absolute Neuts (auto) Absolute Nucleated RBC Nucleated RBC % Platelet Estimate Hypochromasia Poikilocytosis Anisocytosis Ovalocytes Schistocytes Sodium Potassium Chloride Carbon Dioxide Anion Gap BUN Creatinine Estim Creat Clear Calc Estimated GFR Glucose POC Capillary Glucose 57 L* mg/dl 73 mg/dl (65-105) (65-105) Calcium Total Bilirubin AST ALT Alkaline Phosphatase Total Protein Albumin ANNETTE Screen Negative (NEGATIVE) 11/18/23 11/18/23 11/18/23 12:12 16:06 21:37 WBC RBC Hgb Hct MCV MCH MCHC RDW Plt Count MPV Immature Gran % (Auto) Neut % (Auto) Lymph % (Auto) Maries % (Auto) Eos % (Auto) Baso % (Auto) Lymph # (Auto) Maries # (Auto) Eos # (Auto)
[2023-11-19] MEDS: BENZOCAINE (*SP) 60 ML SPRAY CAN (HURRICAINE) 1 SPRAY MUCOUS MEM (10:37)
--- NOTE | 2023-11-19 10:49 | SUR.OPER ---
Addendum entered by Yeny Akhtar RN 11/19/23 10:52: Colon start time 1051. Original Note: EGD [id number]. Colon start time 1050.
[2023-11-19 11:30] LABS: Glucose Point of Care 68 mg/dl (65-105)
[2023-11-19 11:45] LABS: Glucose Point of Care 99 mg/dl (65-105)
[2023-11-19 12:50] LABS: Glucose Point of Care 84 mg/dl (65-105)
--- NOTE | 2023-11-19 15:57 | PM.IMPN ---
Progress Note: A&P Assessment and Plan (1) Diarrhea: Qualifiers: Diarrhea type: presumed infectious Qualified Code(s): R19.7 - Diarrhea, unspecified Code(s): R19.7 - Diarrhea, unspecified Status: Acute Assessment and Plan: - CT abd/pelvis: Moderate bilateral pleural effusions. Moderate abdominopelvic ascites. Cholelithiasis. Diffuse soft tissue anasarca. - C. diff negative - stool culture pending diarrhea resolved (2) Thigh shingles: Code(s): B02.9 - Zoster without complications Status: Suspected Assessment and Plan: - patch to proximal/anterior left thigh that started as small vesicles. Vesicles have since ruptured, area is erythematous/open without crusting. Isolation precautions ordered - started on Valtrex due to age (3) Ulcer of lower extremity: Qualifiers: Laterality: left Non-pressure ulcer stage: limited to breakdown of skin Qualified Code(s): L97.921 - Non-pressure chronic ulcer of unspecified part of left lower leg limited to breakdown of skin Code(s): L97.909 - Non-pressure chronic ulcer of unspecified part of unspecified lower leg with unspecified severity Status: Acute Assessment and Plan: - ADELA ordered of LLE - low suspicion for DVT given patient is on Eliquis - wound consulted - will add ANNETTE, previously negative in 2020 - DDx: high suspicion for peripheral artery disease, cannot exclude SLE or bullous pemphigoid. S/p Vanc and Zosyn Now on Doxy and Augmentin monitor (4) Anasarca: Code(s): R60.1 - Generalized edema Status: Acute Assessment and Plan: - BNP elevated, echo ordered (no previous on file) - on Bumex 2 mg PO daily, will continue as Bumex 1.5 mg BID IVP - TSH elevated with low t4, may need levothyroxine titrated. Currently on 137 mcg daily, outside med rec showed patient has been on 125 mcg daily. Patient unable to clarify. - albumin WNL (5) Swelling of vagina: Code(s): N89.9 - Noninflammatory disorder of vagina, unspecified Status: Acute Assessment and Plan: - anasarca vs yeast infection vs combination thereof - Diflucan 150 mg PO x1 - tolnaftate powder (6) Chronic diastolic (congestive) heart failure: Code(s): I50.32 - Chronic diastolic (congestive) heart failure Status: Chronic Assessment and Plan: - BNP 20,300 - no echo on file, update - currently on: Bumex 2 mg daily, continue Bumex 1.5mg IV bid per nephrology - daily weights - monitor I&Os - trend renal function (7) Stage 3b chronic kidney disease: Code(s): N18.32 - Chronic kidney disease, stage 3b Status: Chronic Assessment and Plan: - creatinine 2.8 and GFR 17, previously 2.7 and GFR 18 on 10/11/2023 - nephrology consulted - trend renal function - trend electrolytes, correct as needed nephrology following (8) Chronic anemia: Code(s): D64.9 - Anemia, unspecified Status: Chronic Assessment and Plan: - hemoglobin 6.9, isat 7 and - isat 7 and FOBT positive - s/p 1 unit pRBC Hb 8.3 today S/p 1000/1000 mg of IV iron stop Protonix Upper and lower Endoscopy no remarkable findings Appreciate GI input (9) Type 2 diabetes mellitus, uncontrolled, with renal complications: Status: Chronic Assessment and Plan: - hypoglycemia protocol - POC blood glucose ACHS - home medication: lispro 10 units t.i.d. with meals, Tresiba 28 units HS - correct regimen ordered Decreased lantus to 8 units daily, and SSI. monitor blood sugar one more day for final insulin regimen adjustment - A1C 9.5% on 10/11/2023 Plan Diet: Heart healthy GI Prophylaxis: Not currently indicated DVT Prophylaxis: hold Eliquis Lines: Peripheral Code Status: Subjective Date/time seen: 11/19/23 15:57 Interval history: patient comfortable at bedside will monitor one more day for blood sugar control as bl
--- NOTE | 2023-11-19 16:03 | PCCDE ---
24: 3:30 - 3:45 pm I received call from RN due to patient being DC?d and physician requesting consult. Upon conversation with Dr. Lisa; pt requires understanding of sliding scale insulin for DC.? Reviewed moderate dosing insulin correction scale with patient including - purpose, onset/peak/duration correction dose, importance only taking as prescribed, with meals, avoid stacking. Pt has 3point5.come with reader at home with alarms. Enc?d patient to review with RN when discussing printed discharge plan. Provided pt with ADA DM booklet and outpatient DSMT/MNT flyer and advised of opportunities. DASIA
[2023-11-19 16:19] LABS: Glucose Point of Care 96 mg/dl (65-105)
--- NOTE | 2023-11-19 18:45 | ADMGEN ---
This patient, Kylie Marquez, was admitted to 3 [facility] Surg Room 313-01 @ 1845. Patient/family oriented to hospital policies and general routines including ID bracelet, bed and alarms, visiting hours, pain management, procedures, bathroom and other care routines, personal items, smoking policy, room service/diet, and visiting hours. Information on how to activate the Rapid Response Team has been discussed. Patient/Family are encouraged to report perceived risks to care and to ask questions if they do not understand what they are told or what they should do.
[2023-11-19] MEDS: ATORVASTATIN 40 MG TABLET PO (20:42)
[2023-11-19] MEDS: traZODone HCL 50 MG TABLET PO (20:43)
[2023-11-19 21:10] LABS: Glucose Point of Care 100 mg/dl (65-105)
--- NOTE | 2023-11-20 | ECHO_ITS ---
Patient Info Name: Kylie Marquez Age: 68 years : 1955 Gender: Female Ht: 70 in Wt: 267 lbs BSA: 2.50 m2 HR: 71 bpm BP: 122 / 68 mmHg Heart Rhythm: Sinus Rhythm Technical Quality: Good Exam Date: 11/20/2023 12:52 PM Exam Location: Echo Lab Patient Status: Inpatient Admit Date: 11/16/2023 Staff Ordering Physician: Denise Lisa MD [employer] Keyboard Operator: Serge Díaz RDCS Attending Provider: Denise Lisa MD Exam Type: CA echo limited w bubble study Study Info Indications - STROKE?? Limited two-dimensional transthoracic echocardiogram is performed with agitated saline. Summary 1. This was a limited study for bubble study. 2. Suspected patent foramen ovale visualized by agitated saline imaging. There is a right to left shunt with bubble study. Atrial Septum Suspected patent foramen ovale visualized by agitated saline imaging. There is a right to left shunt with bubble study. Report Signatures
[2023-11-20 05:38] LABS: Basophils Percent Auto 0.9 % (0.2-1.2); Eosinophils Absolute Auto 0.3 K/mm3 (0-0.3); Eosinophils Percent Auto 6.6 % (0-4.4); Hematocrit 28.5 % (37.0-47.0); Hemoglobin 8.3 g/dL (12.0-15.0); Immature Granulocyte Absolute 0.02 K/mm3 (0.00-0.031); Immature Granulocyte Percent A 0.5 % (0-0.5); Lymphocytes Absolute Auto 1.05 K/mm3 (0.9-3.2); Lymphocytes Percent Auto 24.6 % (18.3-44.2); Mean Corpuscular HGB Conc 29.1 g/dl (32-36); Mean Corpuscular Hemoglobin 23.8 pg (26-34); Mean Corpuscular Volume 81.7 fl (80-100); Mean Platelet Volume 9.7 fl (7.4-10.4); Monocytes Absolute Auto 0.4 K/mm3 (0.1-0.6); Monocytes Percent Auto 8.7 % (2.6-8.5); Neutrophils Absolute Auto 2.5 K/mm3 (1.3-6.7); Neutrophils Percent Auto 58.7 % (45.5-73.1); Platelet Count Result 184 k/mm3 (150-375); Red Blood Count 3.49 M/mm3 (4.2-5.4); Red Cell Distribution Width 19.4 % (11.5-14.5); White Blood Count 4.3 K/mm3 (4.5-10.0)
[2023-11-20 05:58] LABS: Anisocytosis 1+; Hypochromasia 1+; Ovalocytes 1+; Platelet Estimate Decreased (Adequate); Poikilocytosis 1+
[2023-11-20 05:59] LABS: Alanine Aminotransferase 10 U/L (6-35); Albumin Level 3.2 g/dL (3.5-5.1); Alkaline Phosphatase 127 U/L (38-126); Anion Gap 11 mmol/L (4-12); Aspartate Amino Transferase 17 U/L (14-36); Bilirubin,Total 0.5 mg/dL (0.2-1.3); Blood Urea Nitrogen 43 mg/dL (7-17); Calcium 8.5 mg/dL (8.4-10.2); Carbon Dioxide 17 mmol/L (22-30); Chloride 106 mmol/L (98-107); Estimated CRCL calculation 25 ml/min; Estimated Glomerular Filt Rate 17; Glucose 93 mg/dL (65-110); Phosphorus 5.2 mg/dL (2.5-4.5); Potassium 4.4 mmol/L (3.4-5.0); Schistocytes None Seen; Sodium 134 mmol/L (137-145)
[2023-11-20 06:00] VITALS: BP 122/68; PULSE 71; RESP 22; TEMP 35.9; O2SAT 98
[2023-11-20] MEDS: LEVOTHYROXINE SODIUM 25 MCG TABLET PO (06:32)
[2023-11-20] MEDS: LEVOTHYROXINE SODIUM 112 MCG TABLET PO (06:32)
[2023-11-20] MEDS: valACYclovir HCL 500 MG TABLET 1000 MG PO ×3 (06:32→21:41)
[2023-11-20 08:10] LABS: Glucose Point of Care 86 mg/dl (65-105)
[2023-11-20 08:35] VITALS: TEMP 36.4
[2023-11-20] MEDS: PANTOPRAZOLE 40 MG TABLET PO (10:04)
[2023-11-20] MEDS: FAMOTIDINE 20 MG TABLET 40 MG PO (10:04)
[2023-11-20] MEDS: FERROUS SULFATE DRIED 142 MG TABCR PO (10:04)
[2023-11-20] MEDS: amLODIPine BESYLATE 2.5 MG TABLET PO (10:04)
[2023-11-20] MEDS: AMOXICILLIN/CLAVULANATE K 875-125 MG TAB 1 TABLET PO ×2 (10:04→21:41)
[2023-11-20] MEDS: TOLNAFTATE 1% POWDER 45 GM BTL 1 APPLIC TOPICAL ×2 (10:05→21:42)
--- NOTE | 2023-11-20 10:34 | PM.IMPN ---
Progress Note: A&P Assessment and Plan (1) Diarrhea: Qualifiers: Diarrhea type: presumed infectious Qualified Code(s): R19.7 - Diarrhea, unspecified Code(s): R19.7 - Diarrhea, unspecified Status: Acute Assessment and Plan: - CT abd/pelvis: Moderate bilateral pleural effusions. Moderate abdominopelvic ascites. Cholelithiasis. Diffuse soft tissue anasarca. - C. diff negative - stool culture pending diarrhea resolved (2) Thigh shingles: Code(s): B02.9 - Zoster without complications Status: Suspected Assessment and Plan: - patch to proximal/anterior left thigh that started as small vesicles. Vesicles have since ruptured, area is erythematous/open without crusting. Isolation precautions ordered - started on Valtrex due to age (3) Ulcer of lower extremity: Qualifiers: Laterality: left Non-pressure ulcer stage: limited to breakdown of skin Qualified Code(s): L97.921 - Non-pressure chronic ulcer of unspecified part of left lower leg limited to breakdown of skin Code(s): L97.909 - Non-pressure chronic ulcer of unspecified part of unspecified lower leg with unspecified severity Status: Acute Assessment and Plan: - ADELA ordered of LLE - low suspicion for DVT given patient is on Eliquis - wound consulted - will add ANNETTE, previously negative in 2020 - DDx: high suspicion for peripheral artery disease, cannot exclude SLE or bullous pemphigoid. S/p Vanc and Zosyn Now on Doxy and Augmentin monitor (4) Anasarca: Code(s): R60.1 - Generalized edema Status: Acute Assessment and Plan: - BNP elevated, echo ordered (no previous on file) - on Bumex 2 mg PO daily, will continue as Bumex 1.5 mg BID IVP - TSH elevated with low t4, may need levothyroxine titrated. Currently on 137 mcg daily, outside med rec showed patient has been on 125 mcg daily. Patient unable to clarify. - albumin WNL (5) Swelling of vagina: Code(s): N89.9 - Noninflammatory disorder of vagina, unspecified Status: Acute Assessment and Plan: - anasarca vs yeast infection vs combination thereof - Diflucan 150 mg PO x1 - tolnaftate powder (6) Chronic diastolic (congestive) heart failure: Code(s): I50.32 - Chronic diastolic (congestive) heart failure Status: Chronic Assessment and Plan: - BNP 20,300 - no echo on file, update - currently on: Bumex 2 mg daily, continue Bumex 1.5mg IV bid per nephrology - daily weights - monitor I&Os - trend renal function (7) Stage 3b chronic kidney disease: Code(s): N18.32 - Chronic kidney disease, stage 3b Status: Chronic Assessment and Plan: - creatinine 2.8 and GFR 17, previously 2.7 and GFR 18 on 10/11/2023 - nephrology consulted - trend renal function - trend electrolytes, correct as needed nephrology following (8) Chronic anemia: Code(s): D64.9 - Anemia, unspecified Status: Chronic Assessment and Plan: - hemoglobin 6.9, isat 7 and - isat 7 and FOBT positive - s/p 1 unit pRBC Hb 8.3 today S/p 1000/1000 mg of IV iron stop Protonix Upper and lower Endoscopy no remarkable findings Appreciate GI input (9) Type 2 diabetes mellitus, uncontrolled, with renal complications: Status: Chronic Assessment and Plan: - hypoglycemia protocol - POC blood glucose ACHS - home medication: lispro 10 units t.i.d. with meals, Tresiba 28 units HS - correct regimen ordered Decreased lantus to 8 units daily, and SSI. blood sugar stable now. will discharge on current regimen and have discussed this with lynn - A1C 9.5% on 10/11/2023 (10) Aphasia: Code(s): R47.01 - Aphasia Status: Acute Assessment and Plan: patient having receptive aphasia since yesterday CT head stat, MRI brain, ECHO, Lipid panel, A1c and Carotid duplex Plan Diet: Heart healthy GI Prophylaxis: No
--- NOTE | 2023-11-20 10:45 | P.PNNP_ITS ---
Progress Note: A&P Assessment and Plan (1) FRANCY (acute kidney injury): Code(s): N17.9 - Acute kidney failure, unspecified Status: Chronic Assessment and Plan: * marked decline in kidney function noted (see #2) * started worsening in late 2022 with creatinine up to 1.7 - 2.2mg/dl * however, during hospitalization (at [facility]) in July 2023, creatinine improved back to 1.4 - 1.5mg/dl * then, in June 2023, jumped up to 2.7mg/dl * admission creatinine uop to 2.8mg/dl * is this really Francy/ARF or is this just a manifestation of chronic kidney disease progression?? * now complicated by anasarca/volume overload * follow trend of renal function with current interventions... (2) Stage 3b chronic kidney disease: Code(s): N18.32 - Chronic kidney disease, stage 3b Status: Chronic Assessment and Plan: * due to biopsy proven diabetic nephropathy/nephrosclerosis (biopsy done in November 2021) in conjunction with vascular disease * evidence of chronic kidney disease that dates back as far as 2016 * had been running 1.1 - 1.6mg/dl for the last few years but is known to have worsened to the 2ish range with her hospitalization/acute infections * recent rise in creatinine noted in September 2023 (see #1) (3) Anasarca: Code(s): R60.1 - Generalized edema Status: Acute Assessment and Plan: * as noted by physical exam and imaging studies * BNP elevated as well * Echo results noted * renal function tolerating diuresis with IV bumex * follow I/Os and daily weights (4) Chronic anemia: Code(s): D64.9 - Anemia, unspecified Status: Chronic Assessment and Plan: * suspect related to FRANCY versus CKD * evidence of iron deficiency noted by anemia studies * but also Hemoccult positive stools * s/p EGD and colonoscopy - normal EGD and diverticulosis present; no active bleeding lesions * PRBC transfusion per protocol * follow trend of H/H * consider TRACY while hospitalized once infections issues cleared (5) Ulcer of lower extremity: Qualifiers: Laterality: left Non-pressure ulcer stage: limited to breakdown of skin Qualified Code(s): L97.921 - Non-pressure chronic ulcer of unspecified part of left lower leg limited to breakdown of skin Code(s): L97.909 - Non-pressure chronic ulcer of unspecified part of unspecified lower leg with unspecified severity Status: Acute Assessment and Plan: * complicated by possible cellulitis(?) * follow culture data - negative to date * on antibiotics (6) Hypertension: Code(s): I10 - Essential (primary) hypertension Status: Chronic Assessment and Plan: * despite history, well controlled * off lisinopril given #1 * follow trend of hemodynamics (7) Type 2 diabetes mellitus, uncontrolled, with renal complications: Status: Chronic Assessment and Plan: * follow accu-cheks * glycemic control per hospitalists Will continue to follow Subjective Date/time seen: 11/20/23 10:45 Interval history: Follow-up for acute kidney injury/acute renal failure on chronic kidney disease. Unable to see yesterday as she was out of room for EGD/colonoscopy at the time of my visit; she tolerated both procedures reasonably well findings noted; swelling/edema appears to be doing better and renal function remains relatively stable with ongoing diuresis; reports that since this morning, she feels she is having trouble understanding/comprehending what she is being told very well so further testing has been orde
--- NOTE | 2023-11-20 10:45 | PM.PNNEP ---
Progress Note: A&P Assessment and Plan (1) FRANCY (acute kidney injury): Code(s): N17.9 - Acute kidney failure, unspecified Status: Chronic Assessment and Plan: marked decline in kidney function noted (see #2) started worsening in late 2022 with creatinine up to 1.7 - 2.2mg/dl however, during hospitalization (at [facility]) in July 2023, creatinine improved back to 1.4 - 1.5mg/dl then, in June 2023, jumped up to 2.7mg/dl admission creatinine uop to 2.8mg/dl is this really Francy/ARF or is this just a manifestation of chronic kidney disease progression?? now complicated by anasarca/volume overload follow trend of renal function with current interventions... (2) Stage 3b chronic kidney disease: Code(s): N18.32 - Chronic kidney disease, stage 3b Status: Chronic Assessment and Plan: due to biopsy proven diabetic nephropathy/nephrosclerosis (biopsy done in November 2021) in conjunction with vascular disease evidence of chronic kidney disease that dates back as far as 2017 had been running 1.1 - 1.6mg/dl for the last few years but is known to have worsened to the 2ish range with her hospitalization/acute infections recent rise in creatinine noted in September 2023 (see #1) (3) Anasarca: Code(s): R60.1 - Generalized edema Status: Acute Assessment and Plan: as noted by physical exam and imaging studies BNP elevated as well Echo results noted renal function tolerating diuresis with IV bumex follow I/Os and daily weights (4) Chronic anemia: Code(s): D64.9 - Anemia, unspecified Status: Chronic Assessment and Plan: suspect related to FRANCY versus CKD evidence of iron deficiency noted by anemia studies but also Hemoccult positive stools s/p EGD and colonoscopy - normal EGD and diverticulosis present; no active bleeding lesions PRBC transfusion per protocol follow trend of H/H consider TRACY while hospitalized once infections issues cleared (5) Ulcer of lower extremity: Qualifiers: Laterality: left Non-pressure ulcer stage: limited to breakdown of skin Qualified Code(s): L97.921 - Non-pressure chronic ulcer of unspecified part of left lower leg limited to breakdown of skin Code(s): L97.909 - Non-pressure chronic ulcer of unspecified part of unspecified lower leg with unspecified severity Status: Acute Assessment and Plan: complicated by possible cellulitis(?) follow culture data - negative to date on antibiotics (6) Hypertension: Code(s): I10 - Essential (primary) hypertension Status: Chronic Assessment and Plan: despite history, well controlled off lisinopril given #1 follow trend of hemodynamics (7) Type 2 diabetes mellitus, uncontrolled, with renal complications: Status: Chronic Assessment and Plan: follow accu-cheks glycemic control per hospitalists Will continue to follow Subjective Date/time seen: 11/20/23 10:45 Interval history: Follow-up for acute kidney injury/acute renal failure on chronic kidney disease. Unable to see yesterday as she was out of room for EGD/colonoscopy at the time of my visit; she tolerated both procedures reasonably well findings noted; swelling/edema appears to be doing better and renal function remains relatively stable with ongoing diuresis; reports that since this morning, she feels she is having trouble understanding/comprehending what she is being told very well so further testing has been ordered to evaluate for CVA/TIA... Exam Narrative: General: WD/WN female in NAD Heart: normal S1 and S2; no rub Lungs: clear anteriorly; decreased at bases Abdomen: soft, nontender, nondistended, positive bowel sounds Extremities: no cyanosis or clubbing; 2 - 3+ edema Skin: improving erythema in LLE Objective Data Vital Signs Vital Signs: Vital Signs Temp Pulse Resp BP Pulse Ox O2 Del Method
[2023-11-20 11:39] LABS: Cholesterol 61 mg/dL (0-200); HDL Direct 30 mg/dL; Triglycerides 66 mg/dL (<150)
[2023-11-20 11:46] LABS: Hemoglobin A1C 8.4 % (<5.7)
[2023-11-20 12:00] LABS: LDL Cholesterol Direct < 30 mg/dL
[2023-11-20 12:12] LABS: Glucose Point of Care 126 mg/dl (65-105)
[2023-11-20] MEDS: ASCORBIC ACID 125 MG TABLET PO (13:45)
[2023-11-20] MEDS: DOXYCYCLINE HYCLATE 100 MG TABLET PO ×2 (13:45→21:41)
[2023-11-20 15:30] VITALS: BP 120/46; PULSE 79; RESP 16; TEMP 36.4; O2SAT 100
[2023-11-20] MEDS: BUMETANIDE INJ 1 MG/4 ML VIAL 1.5 MG IV PUSH (16:19)
[2023-11-20 17:03] LABS: Glucose Point of Care 156 mg/dl (65-105)
[2023-11-20 20:39] LABS: Glucose Point of Care 153 mg/dl (65-105)
[2023-11-20 21:15] VITALS: BP 110/63; PULSE 80; RESP 18; TEMP 36.9; O2SAT 98
[2023-11-20] MEDS: traZODone HCL 50 MG TABLET PO (21:41)
[2023-11-20] MEDS: ATORVASTATIN 40 MG TABLET PO (21:41)
[2023-11-20] MEDS: INSULIN GLARGINE (*BKC) 100 UNITS/ML 10 UNITS SUB-Q (21:41)
[2023-11-21] MEDS: LEVOTHYROXINE SODIUM 25 MCG TABLET PO (05:45)
[2023-11-21] MEDS: LEVOTHYROXINE SODIUM 112 MCG TABLET PO (05:45)
[2023-11-21] MEDS: valACYclovir HCL 500 MG TABLET 1000 MG PO ×3 (05:45→20:59)
[2023-11-21] MEDS: hydrOXYzine pamoate 25 MG CAPSULE 50 MG PO ×3 (05:47→20:59)
[2023-11-21 06:00] VITALS: BP 114/64; PULSE 78; RESP 22; TEMP 37.1; O2SAT 98
[2023-11-21 06:10] LABS: Basophils Absolute Auto 0.1 K/mm3 (0.0-0.1); Basophils Percent Auto 0.8 % (0.2-1.2); Eosinophils Absolute Auto 0.3 K/mm3 (0-0.3); Eosinophils Percent Auto 4.1 % (0-4.4); Hematocrit 29.6 % (37.0-47.0); Hemoglobin 8.5 g/dL (12.0-15.0); Immature Granulocyte Absolute 0.03 K/mm3 (0.00-0.031); Immature Granulocyte Percent A 0.5 % (0-0.5); Lymphocytes Absolute Auto 1.47 K/mm3 (0.9-3.2); Mean Corpuscular HGB Conc 28.7 g/dl (32-36); Mean Corpuscular Hemoglobin 23.9 pg (26-34); Mean Corpuscular Volume 83.1 fl (80-100); Mean Platelet Volume 10.3 fl (7.4-10.4); Monocytes Absolute Auto 0.5 K/mm3 (0.1-0.6); Neutrophils Absolute Auto 4.1 K/mm3 (1.3-6.7); Neutrophils Percent Auto 63.6 % (45.5-73.1); Platelet Count Result 197 k/mm3 (150-375); Red Blood Count 3.56 M/mm3 (4.2-5.4); Red Cell Distribution Width 19.7 % (11.5-14.5); White Blood Count 6.4 K/mm3 (4.5-10.0)
[2023-11-21 06:16] LABS: Alanine Aminotransferase 10 U/L (6-35); Albumin Level 3.4 g/dL (3.5-5.1); Alkaline Phosphatase 120 U/L (38-126); Anion Gap 13 mmol/L (4-12); Aspartate Amino Transferase 16 U/L (14-36); Bilirubin,Total 0.5 mg/dL (0.2-1.3); Blood Urea Nitrogen 50 mg/dL (7-17); Calcium 8.3 mg/dL (8.4-10.2); Carbon Dioxide 14 mmol/L (22-30); Chloride 107 mmol/L (98-107); Estimated CRCL calculation 23 ml/min; Estimated Glomerular Filt Rate 15; Glucose 106 mg/dL (65-110); Magnesium 2.1 mg/dL (1.6-2.3); Phosphorus 5.7 mg/dL (2.5-4.5); Sodium 134 mmol/L (137-145)
[2023-11-21 07:43] LABS: Anisocytosis 1+; Hypochromasia 1+; Ovalocytes 1+; Platelet Estimate Adequate (Adequate)
[2023-11-21 07:44] LABS: Schistocytes None Seen
[2023-11-21] MEDS: amLODIPine BESYLATE 2.5 MG TABLET PO (08:37)
[2023-11-21] MEDS: AMOXICILLIN/CLAVULANATE K 875-125 MG TAB 1 TABLET PO ×2 (08:37→20:59)
[2023-11-21] MEDS: FERROUS SULFATE DRIED 142 MG TABCR PO (08:37)
[2023-11-21] MEDS: ATORVASTATIN 40 MG TABLET PO ×2 (08:37→20:59)
[2023-11-21] MEDS: ASCORBIC ACID 125 MG TABLET PO (08:37)
[2023-11-21] MEDS: FAMOTIDINE 20 MG TABLET 40 MG PO (08:37)
[2023-11-21] MEDS: DOXYCYCLINE HYCLATE 100 MG TABLET PO ×2 (08:37→20:59)
[2023-11-21] MEDS: ASPIRIN 81 MG ENTERIC TABLET PO (08:38)
[2023-11-21] MEDS: TOLNAFTATE 1% POWDER 45 GM BTL 1 APPLIC TOPICAL ×2 (08:38→21:02)
[2023-11-21] MEDS: PANTOPRAZOLE 40 MG TABLET PO (08:38)
[2023-11-21] MEDS: BUMETANIDE INJ 1 MG/4 ML VIAL 1.5 MG IV PUSH (08:41)
--- NOTE | 2023-11-21 11:37 | P.PNNP_ITS ---
Progress Note: A&P Assessment and Plan (1) FRANCY (acute kidney injury): Code(s): N17.9 - Acute kidney failure, unspecified Status: Chronic Assessment and Plan: * marked decline in kidney function noted (see #2) * started worsening in late 2022 with creatinine up to 1.7 - 2.2mg/dl * however, during hospitalization (at [facility]) in July 2023, creatinine improved back to 1.4 - 1.5mg/dl * then, in June 2023, jumped up to 2.7mg/dl * admission creatinine uop to 2.8mg/dl * is this really Francy/ARF or is this just a manifestation of chronic kidney disease progression?? * now complicated by anasarca/volume overload * follow trend of renal function with current interventions... (2) Stage 3b chronic kidney disease: Code(s): N18.32 - Chronic kidney disease, stage 3b Status: Chronic Assessment and Plan: * due to biopsy proven diabetic nephropathy/nephrosclerosis (biopsy done in November 2021) in conjunction with vascular disease * evidence of chronic kidney disease that dates back as far as 2016 * had been running 1.1 - 1.6mg/dl for the last few years but is known to have worsened to the 2ish range with her hospitalization/acute infections * recent rise in creatinine noted in September 2023 (see #1) (3) Anasarca: Code(s): R60.1 - Generalized edema Status: Acute Assessment and Plan: * as noted by physical exam and imaging studies * BNP elevated as well * Echo results noted * renal function tolerating diuresis with IV bumex * follow I/Os and daily weights (4) Chronic anemia: Code(s): D64.9 - Anemia, unspecified Status: Chronic Assessment and Plan: * suspect related to FRANCY versus CKD * evidence of iron deficiency noted by anemia studies * but also Hemoccult positive stools * s/p EGD and colonoscopy - normal EGD and diverticulosis present; no active bleeding lesions * PRBC transfusion per protocol * follow trend of H/H * consider TRACY while hospitalized once infections issues cleared (5) Ulcer of lower extremity: Qualifiers: Laterality: left Non-pressure ulcer stage: limited to breakdown of skin Qualified Code(s): L97.921 - Non-pressure chronic ulcer of unspecified part of left lower leg limited to breakdown of skin Code(s): L97.909 - Non-pressure chronic ulcer of unspecified part of unspecified lower leg with unspecified severity Status: Acute Assessment and Plan: * complicated by possible cellulitis(?) * follow culture data - negative to date * on antibiotics (6) Hypertension: Code(s): I10 - Essential (primary) hypertension Status: Chronic Assessment and Plan: * despite history, well controlled * off lisinopril given #1 * follow trend of hemodynamics (7) Type 2 diabetes mellitus, uncontrolled, with renal complications: Status: Chronic Assessment and Plan: * follow accu-cheks * glycemic control per hospitalists Will continue to follow Subjective Date/time seen: 11/21/23 11:37 Interval history: Follow-up for acute kidney injury/acute renal failure on chronic kidney disease. Having a panic attack when seen but was unable to elaborate what triggered it; renal function/creatinine up a bit in association with a decline in urine output despite IV diuretic therapy; Neurology evaluation pending with some ordered imaging still pending; swelling/edema present but seems better per patient. Exam Narrative: General: WD/WN female in NAD Heart: normal S1
--- NOTE | 2023-11-21 11:37 | PM.PNNEP ---
Progress Note: A&P Assessment and Plan (1) FRANCY (acute kidney injury): Code(s): N17.9 - Acute kidney failure, unspecified Status: Chronic Assessment and Plan: marked decline in kidney function noted (see #2) started worsening in late 2022 with creatinine up to 1.7 - 2.2mg/dl however, during hospitalization (at [facility]) in July 2023, creatinine improved back to 1.4 - 1.5mg/dl then, in June 2023, jumped up to 2.7mg/dl admission creatinine uop to 2.8mg/dl is this really Francy/ARF or is this just a manifestation of chronic kidney disease progression?? now complicated by anasarca/volume overload follow trend of renal function with current interventions... (2) Stage 3b chronic kidney disease: Code(s): N18.32 - Chronic kidney disease, stage 3b Status: Chronic Assessment and Plan: due to biopsy proven diabetic nephropathy/nephrosclerosis (biopsy done in November 2021) in conjunction with vascular disease evidence of chronic kidney disease that dates back as far as 2017 had been running 1.1 - 1.6mg/dl for the last few years but is known to have worsened to the 2ish range with her hospitalization/acute infections recent rise in creatinine noted in September 2023 (see #1) (3) Anasarca: Code(s): R60.1 - Generalized edema Status: Acute Assessment and Plan: as noted by physical exam and imaging studies BNP elevated as well Echo results noted renal function tolerating diuresis with IV bumex follow I/Os and daily weights (4) Chronic anemia: Code(s): D64.9 - Anemia, unspecified Status: Chronic Assessment and Plan: suspect related to FRANCY versus CKD evidence of iron deficiency noted by anemia studies but also Hemoccult positive stools s/p EGD and colonoscopy - normal EGD and diverticulosis present; no active bleeding lesions PRBC transfusion per protocol follow trend of H/H consider TRACY while hospitalized once infections issues cleared (5) Ulcer of lower extremity: Qualifiers: Laterality: left Non-pressure ulcer stage: limited to breakdown of skin Qualified Code(s): L97.921 - Non-pressure chronic ulcer of unspecified part of left lower leg limited to breakdown of skin Code(s): L97.909 - Non-pressure chronic ulcer of unspecified part of unspecified lower leg with unspecified severity Status: Acute Assessment and Plan: complicated by possible cellulitis(?) follow culture data - negative to date on antibiotics (6) Hypertension: Code(s): I10 - Essential (primary) hypertension Status: Chronic Assessment and Plan: despite history, well controlled off lisinopril given #1 follow trend of hemodynamics (7) Type 2 diabetes mellitus, uncontrolled, with renal complications: Status: Chronic Assessment and Plan: follow accu-cheks glycemic control per hospitalists Will continue to follow Subjective Date/time seen: 11/21/23 11:37 Interval history: Follow-up for acute kidney injury/acute renal failure on chronic kidney disease. Having a panic attack when seen but was unable to elaborate what triggered it; renal function/creatinine up a bit in association with a decline in urine output despite IV diuretic therapy; Neurology evaluation pending with some ordered imaging still pending; swelling/edema present but seems better per patient. Exam Narrative: General: WD/WN female in NAD Heart: normal S1 and S2; no rub Lungs: clear anteriorly; decreased at bases Abdomen: soft, nontender, nondistended, positive bowel sounds Extremities: no cyanosis or clubbing; 2 - 3+ edema Skin: improving/reduced erythema in LLE Objective Data Vital Signs Vital Signs: Vital Signs Temp Pulse Resp BP Pulse Ox O2 Del Method 11/21/23 11:00 97.5 F L 85 20 132/65 96 11/21/23 08:00 Room Air 11/21/23 06:00 98.7 F 78 22 H 114/64 98
[2023-11-21 11:46] LABS: Glucose Point of Care 100 mg/dl (65-105)
--- NOTE | 2023-11-21 13:12 | PM.IMPN ---
Progress Note: A&P Assessment and Plan (1) Diarrhea: Qualifiers: Diarrhea type: presumed infectious Qualified Code(s): R19.7 - Diarrhea, unspecified Code(s): R19.7 - Diarrhea, unspecified Status: Acute Assessment and Plan: - CT abd/pelvis: Moderate bilateral pleural effusions. Moderate abdominopelvic ascites. Cholelithiasis. Diffuse soft tissue anasarca. - C. diff negative - stool culture pending diarrhea resolved (2) Thigh shingles: Code(s): B02.9 - Zoster without complications Status: Suspected Assessment and Plan: - patch to proximal/anterior left thigh that started as small vesicles. Vesicles have since ruptured, area is erythematous/open without crusting. Isolation precautions ordered - started on Valtrex x 7days (3) Ulcer of lower extremity: Qualifiers: Laterality: left Non-pressure ulcer stage: limited to breakdown of skin Qualified Code(s): L97.921 - Non-pressure chronic ulcer of unspecified part of left lower leg limited to breakdown of skin Code(s): L97.909 - Non-pressure chronic ulcer of unspecified part of unspecified lower leg with unspecified severity Status: Acute Assessment and Plan: - ADELA ordered of LLE - low suspicion for DVT given patient is on Eliquis - wound consulted - will add ANNETTE, previously negative in 2020 - DDx: high suspicion for peripheral artery disease, cannot exclude SLE or bullous pemphigoid. S/p Vanc and Zosyn Now on Doxy and Augmentin x 10 days monitor (4) Anasarca: Code(s): R60.1 - Generalized edema Status: Acute Assessment and Plan: - BNP elevated, echo ordered (no previous on file) - on Bumex 2 mg PO daily, will continue as Bumex 1.5 mg BID IVP - TSH elevated with low t4 continue home levothyroxine F/u TSH studies outpatient and adjustment then - albumin WNL (5) Swelling of vagina: Code(s): N89.9 - Noninflammatory disorder of vagina, unspecified Status: Acute Assessment and Plan: - anasarca vs yeast infection vs combination thereof - Diflucan 150 mg PO x1 - tolnaftate powder (6) Chronic diastolic (congestive) heart failure: Code(s): I50.32 - Chronic diastolic (congestive) heart failure Status: Chronic Assessment and Plan: - BNP 20,300 - no echo on file, update - currently on: Bumex 2 mg daily, decreased Bumex 1mg bid, given that increased to 3.1 from 2.8 - daily weights - monitor I&Os - trend renal function nephrology following (7) Stage 3b chronic kidney disease: Code(s): N18.32 - Chronic kidney disease, stage 3b Status: Chronic Assessment and Plan: - creatinine 2.8 and GFR 17, previously 2.7 and GFR 18 on 10/11/2023 - nephrology consulted - trend renal function - trend electrolytes, correct as needed nephrology following (8) Chronic anemia: Code(s): D64.9 - Anemia, unspecified Status: Chronic Assessment and Plan: - hemoglobin 6.9, isat 7 and - isat 7 and FOBT positive - s/p 1 unit pRBC Hb 8.3 today S/p 1000/1000 mg of IV iron stop Protonix Upper and lower Endoscopy no remarkable findings Appreciate GI input (9) Type 2 diabetes mellitus, uncontrolled, with renal complications: Status: Chronic Assessment and Plan: - hypoglycemia protocol - POC blood glucose ACHS - home medication: lispro 10 units t.i.d. with meals, Tresiba 28 units HS - correct regimen ordered Decreased lantus to 8 units daily, and SSI. monitor blood sugar one more day for final insulin regimen adjustment - A1C 9.5% on 10/11/2023 (10) Aphasia: Code(s): R47.01 - Aphasia Status: Acute Assessment and Plan: receptive aphasia vs memory deficit Dementia vs Stroke awaiting MRI brain, ECHO PT/OT/ST consulted neurology consulted awaiting eval Plan Diet: Heart healthy GI Prophylaxis: Not currently indicated DV
[2023-11-21 14:00] VITALS: BP 132/65; PULSE 85; RESP 20; TEMP 36.4; O2SAT 96
[2023-11-21 16:54] LABS: Glucose Point of Care 113 mg/dl (65-105)
[2023-11-21] MEDS: ACETAMINOPHEN 500 MG TABLET 1000 MG PO (17:17)
[2023-11-21] MEDS: BUMETANIDE INJ 1 MG/4 ML VIAL IV PUSH (17:17)
[2023-11-21] MEDS: traZODone HCL 50 MG TABLET PO (20:59)
[2023-11-21] MEDS: INSULIN GLARGINE (*BKC) 100 UNITS/ML 10 UNITS SUB-Q (21:01)
[2023-11-21 21:03] LABS: Glucose Point of Care 173 mg/dl (65-105)
[2023-11-21 21:43] VITALS: BP 155/51; PULSE 83; RESP 18; TEMP 36.6; O2SAT 98
[2023-11-21] MEDS: HYDROmorphone HCL INJ (*CRX) 1 MG/ML SYR IV PUSH (22:36)
[2023-11-22 04:30] VITALS: BP 118/67; PULSE 76; RESP 12; TEMP 36.4; O2SAT 96
[2023-11-22] MEDS: valACYclovir HCL 500 MG TABLET 1000 MG PO ×3 (05:05→20:47)
[2023-11-22] MEDS: LEVOTHYROXINE SODIUM 112 MCG TABLET PO (05:05)
[2023-11-22] MEDS: LEVOTHYROXINE SODIUM 25 MCG TABLET PO (05:05)
[2023-11-22 07:41] LABS: Basophils Percent Auto 0.5 % (0.2-1.2); Eosinophils Absolute Auto 0.3 K/mm3 (0-0.3); Eosinophils Percent Auto 4.7 % (0-4.4); Hematocrit 25.9 % (37.0-47.0); Hemoglobin 7.6 g/dL (12.0-15.0); Immature Granulocyte Absolute 0.02 K/mm3 (0.00-0.031); Immature Granulocyte Percent A 0.4 % (0-0.5); Lymphocytes Absolute Auto 0.93 K/mm3 (0.9-3.2); Lymphocytes Percent Auto 16.9 % (18.3-44.2); Mean Corpuscular HGB Conc 29.3 g/dl (32-36); Mean Corpuscular Hemoglobin 24.1 pg (26-34); Mean Corpuscular Volume 82.2 fl (80-100); Mean Platelet Volume 9.9 fl (7.4-10.4); Monocytes Absolute Auto 0.4 K/mm3 (0.1-0.6); Monocytes Percent Auto 6.4 % (2.6-8.5); Neutrophils Absolute Auto 3.9 K/mm3 (1.3-6.7); Neutrophils Percent Auto 71.1 % (45.5-73.1); Platelet Count Result 172 k/mm3 (150-375); Red Blood Count 3.15 M/mm3 (4.2-5.4); Red Cell Distribution Width 19.6 % (11.5-14.5); White Blood Count 5.5 K/mm3 (4.5-10.0)
[2023-11-22 07:48] LABS: Glucose Point of Care 118 mg/dl (65-105)
[2023-11-22 07:53] LABS: Alanine Aminotransferase 8 U/L (6-35); Alkaline Phosphatase 112 U/L (38-126); Anion Gap 13 mmol/L (4-12); Aspartate Amino Transferase 15 U/L (14-36); Bilirubin,Total 0.5 mg/dL (0.2-1.3); Blood Urea Nitrogen 54 mg/dL (7-17); Calcium 8.1 mg/dL (8.4-10.2); Carbon Dioxide 15 mmol/L (22-30); Chloride 106 mmol/L (98-107); Estimated CRCL calculation 19 ml/min; Estimated Glomerular Filt Rate 12; Glucose 124 mg/dL (65-110); Phosphorus 6.1 mg/dL (2.5-4.5); Potassium 4.7 mmol/L (3.4-5.0); Sodium 134 mmol/L (137-145)
[2023-11-22 08:25] LABS: Anisocytosis 1+; Hypochromasia 1+; Platelet Estimate Adequate (Adequate)
[2023-11-22 08:26] LABS: Ovalocytes 1+; Schistocytes None Seen
[2023-11-22] MEDS: ASPIRIN 81 MG ENTERIC TABLET PO (08:27)
[2023-11-22] MEDS: FAMOTIDINE 20 MG TABLET 40 MG PO (08:27)
[2023-11-22] MEDS: AMOXICILLIN/CLAVULANATE K 875-125 MG TAB 1 TABLET PO ×2 (08:27→20:47)
[2023-11-22] MEDS: PANTOPRAZOLE 40 MG TABLET PO (08:27)
[2023-11-22] MEDS: TOLNAFTATE 1% POWDER 45 GM BTL 1 APPLIC TOPICAL ×2 (08:27→20:47)
[2023-11-22] MEDS: FERROUS SULFATE DRIED 142 MG TABCR PO (08:27)
[2023-11-22] MEDS: DOXYCYCLINE HYCLATE 100 MG TABLET PO ×2 (08:27→20:47)
[2023-11-22] MEDS: ASCORBIC ACID 125 MG TABLET PO (08:27)
[2023-11-22] MEDS: BUMETANIDE INJ 1 MG/4 ML VIAL IV PUSH ×2 (08:27→16:55)
--- NOTE | 2023-11-22 09:38 | PM.IMPN ---
Progress Note: A&P Assessment and Plan (1) Diarrhea: Qualifiers: Diarrhea type: presumed infectious Qualified Code(s): R19.7 - Diarrhea, unspecified Code(s): R19.7 - Diarrhea, unspecified Status: Acute Assessment and Plan: - CT abd/pelvis: Moderate bilateral pleural effusions. Moderate abdominopelvic ascites. Cholelithiasis. Diffuse soft tissue anasarca. - C. diff negative - stool culture pending diarrhea resolved (2) Thigh shingles: Code(s): B02.9 - Zoster without complications Status: Suspected Assessment and Plan: - patch to proximal/anterior left thigh that started as small vesicles. Vesicles have since ruptured, area is erythematous/open without crusting. Isolation precautions ordered - started on Valtrex x 7days, ends 11/23/23 (3) Ulcer of lower extremity: Qualifiers: Laterality: left Non-pressure ulcer stage: limited to breakdown of skin Qualified Code(s): L97.921 - Non-pressure chronic ulcer of unspecified part of left lower leg limited to breakdown of skin Code(s): L97.909 - Non-pressure chronic ulcer of unspecified part of unspecified lower leg with unspecified severity Status: Acute Assessment and Plan: - ADELA ordered of LLE - low suspicion for DVT given patient is on Eliquis - wound consulted - will add ANNETTE, previously negative in 2020 - DDx: high suspicion for peripheral artery disease, cannot exclude SLE or bullous pemphigoid. S/p Vanc and Zosyn Now on Doxy and Augmentin x 10 days monitor (4) Anasarca: Code(s): R60.1 - Generalized edema Status: Acute Assessment and Plan: - BNP elevated, echo ordered (no previous on file) - on Bumex 2 mg PO daily, will continue as Bumex 1.5 mg BID IVP - TSH elevated with low t4 continue home levothyroxine F/u TSH studies outpatient and adjustment then - albumin WNL (5) Swelling of vagina: Code(s): N89.9 - Noninflammatory disorder of vagina, unspecified Status: Acute Assessment and Plan: - anasarca vs yeast infection vs combination thereof - Diflucan 150 mg PO x1 - tolnaftate powder (6) Chronic diastolic (congestive) heart failure: Code(s): I50.32 - Chronic diastolic (congestive) heart failure Status: Chronic Assessment and Plan: - BNP 20,300 - no echo on file, update - currently on: Bumex 2 mg daily, decreased Bumex 1mg bid, given that increased to 3.1 from 2.8 - daily weights - monitor I&Os - trend renal function nephrology following (7) Stage 3b chronic kidney disease: Code(s): N18.32 - Chronic kidney disease, stage 3b Status: Chronic Assessment and Plan: - creatinine 2.8 and GFR 17, previously 2.7 and GFR 18 on 10/11/2023 - nephrology consulted - trend renal function - trend electrolytes, correct as needed nephrology following (8) Chronic anemia: Code(s): D64.9 - Anemia, unspecified Status: Chronic Assessment and Plan: - hemoglobin 6.9, isat 7 and - isat 7 and FOBT positive - s/p 1 unit pRBC Hb 7.6 today S/p 1000/1000 mg of IV iron, no more iron supplements stop Protonix Upper and lower Endoscopy no remarkable findings Appreciate GI input (9) Type 2 diabetes mellitus, uncontrolled, with renal complications: Status: Chronic Assessment and Plan: - hypoglycemia protocol - POC blood glucose ACHS - home medication: lispro 10 units t.i.d. with meals, Tresiba 28 units HS - correct regimen ordered Decreased lantus to 8 units daily, and SSI. monitor blood sugar one more day for final insulin regimen adjustment - A1C 9.5% on 10/11/2023 (10) Aphasia: Code(s): R47.01 - Aphasia Status: Acute Assessment and Plan: receptive aphasia vs memory deficit Dementia vs Stroke ECHO showed EF 45-50% with PASP 55mmHg awaiting MRI brain PT/OT/ST consulted neurology consulted awaiting eval Pl
--- NOTE | 2023-11-22 10:22 | PM.PNNEP ---
Progress Note: A&P Assessment and Plan (1) SHREYA (acute kidney injury): Code(s): N17.9 - Acute kidney failure, unspecified Status: Chronic Assessment and Plan: marked decline in kidney function noted (see #2) started worsening in late 2022 with creatinine up to 1.7 - 2.2mg/dl however, during hospitalization (at [facility]) in July 2023, creatinine improved back to 1.4 - 1.5mg/dl then, in June 2023, jumped up to 2.7mg/dl admission creatinine uop to 2.8mg/dl is this really SHREYA/ARF or is this just a manifestation of chronic kidney disease progression?? now complicated by anasarca/volume overload holding diuretics due to rising creatinine follow trend of renal function with current interventions... (2) Stage 3b chronic kidney disease: Code(s): N18.32 - Chronic kidney disease, stage 3b Status: Chronic Assessment and Plan: due to biopsy proven diabetic nephropathy/nephrosclerosis (biopsy done in November 2021) in conjunction with vascular disease evidence of chronic kidney disease that dates back as far as 2017 had been running 1.1 - 1.6mg/dl for the last few years but is known to have worsened to the 2ish range with her hospitalization/acute infections recent rise in creatinine noted in September 2023 (see #1) (3) Anasarca: Code(s): R60.1 - Generalized edema Status: Acute Assessment and Plan: as noted by physical exam and imaging studies BNP elevated as well Echo results noted renal function tolerating diuresis with IV bumex follow I/Os and daily weights (4) Chronic anemia: Code(s): D64.9 - Anemia, unspecified Status: Chronic Assessment and Plan: suspect related to SHREYA versus CKD evidence of iron deficiency noted by anemia studies but also Hemoccult positive stools s/p EGD and colonoscopy - normal EGD and diverticulosis present; no active bleeding lesions PRBC transfusion per protocol follow trend of H/H on TRACY and s/p IV venofer (5) Ulcer of lower extremity: Qualifiers: Laterality: left Non-pressure ulcer stage: limited to breakdown of skin Qualified Code(s): L97.921 - Non-pressure chronic ulcer of unspecified part of left lower leg limited to breakdown of skin Code(s): L97.909 - Non-pressure chronic ulcer of unspecified part of unspecified lower leg with unspecified severity Status: Acute Assessment and Plan: complicated by possible cellulitis(?) follow culture data - negative to date on antibiotics (6) Hypertension: Code(s): I10 - Essential (primary) hypertension Status: Chronic Assessment and Plan: despite history, well controlled off lisinopril given #1 follow trend of hemodynamics (7) Type 2 diabetes mellitus, uncontrolled, with renal complications: Status: Chronic Assessment and Plan: follow accu-cheks glycemic control per hospitalists Will continue to follow Plan renal biopsy Subjective Date/time seen: 11/22/23 10:22 Interval history: Follow-up for acute kidney injury/acute renal failure on chronic kidney disease. Appears to be doing reasonably well at the time of my visit; unfortunately, renal function/creatinine worsening in association with decline in urine output despite IV diuretic therapy; still have some ongoing issues with her memory and comprehension with further testing to be done today. Exam Narrative: General: WD/WN female in NAD Heart: normal S1 and S2; no rub Lungs: clear anteriorly; decreased at bases Abdomen: soft, nontender, nondistended, positive bowel sounds Extremities: no cyanosis or clubbing; 2 - 3+ edema Skin: improving/reduced erythema in LLE Objective Data Vital Signs Vital Signs: Vital Signs Temp Pulse Resp BP Pulse Ox O2 Del Method 11/22/23 08:00 Room Air 11/22/23 04:30 97.5 F L 76 12 118/67 96 11/21/23 21:00 Room Air 11/21/23 21:43
--- NOTE | 2023-11-22 10:22 | P.PNNP_ITS ---
Progress Note: A&P Assessment and Plan (1) SHREYA (acute kidney injury): Code(s): N17.9 - Acute kidney failure, unspecified Status: Chronic Assessment and Plan: * marked decline in kidney function noted (see #2) * started worsening in late 2022 with creatinine up to 1.7 - 2.2mg/dl * however, during hospitalization (at [facility]) in July 2023, creatinine improved back to 1.4 - 1.5mg/dl * then, in June 2023, jumped up to 2.7mg/dl * admission creatinine uop to 2.8mg/dl * is this really SHREYA/ARF or is this just a manifestation of chronic kidney disease progression?? * now complicated by anasarca/volume overload * holding diuretics due to rising creatinine * follow trend of renal function with current interventions... (2) Stage 3b chronic kidney disease: Code(s): N18.32 - Chronic kidney disease, stage 3b Status: Chronic Assessment and Plan: * due to biopsy proven diabetic nephropathy/nephrosclerosis (biopsy done in November 2021) in conjunction with vascular disease * evidence of chronic kidney disease that dates back as far as 2016 * had been running 1.1 - 1.6mg/dl for the last few years but is known to have worsened to the 2ish range with her hospitalization/acute infections * recent rise in creatinine noted in September 2023 (see #1) (3) Anasarca: Code(s): R60.1 - Generalized edema Status: Acute Assessment and Plan: * as noted by physical exam and imaging studies * BNP elevated as well * Echo results noted * renal function tolerating diuresis with IV bumex * follow I/Os and daily weights (4) Chronic anemia: Code(s): D64.9 - Anemia, unspecified Status: Chronic Assessment and Plan: * suspect related to SHREYA versus CKD * evidence of iron deficiency noted by anemia studies * but also Hemoccult positive stools * s/p EGD and colonoscopy - normal EGD and diverticulosis present; no active bleeding lesions * PRBC transfusion per protocol * follow trend of H/H * on TRACY and s/p IV venofer (5) Ulcer of lower extremity: Qualifiers: Laterality: left Non-pressure ulcer stage: limited to breakdown of skin Qualified Code(s): L97.921 - Non-pressure chronic ulcer of unspecified part of left lower leg limited to breakdown of skin Code(s): L97.909 - Non-pressure chronic ulcer of unspecified part of unspecified lower leg with unspecified severity Status: Acute Assessment and Plan: * complicated by possible cellulitis(?) * follow culture data - negative to date * on antibiotics (6) Hypertension: Code(s): I10 - Essential (primary) hypertension Status: Chronic Assessment and Plan: * despite history, well controlled * off lisinopril given #1 * follow trend of hemodynamics (7) Type 2 diabetes mellitus, uncontrolled, with renal complications: Status: Chronic Assessment and Plan: * follow accu-cheks * glycemic control per hospitalists Will continue to follow Plan renal biopsy Subjective Date/time seen: 11/22/23 10:22 Interval history: Follow-up for acute kidney injury/acute renal failure on chronic kidney disease. Appears to be doing reasonably well at the time of my visit; unfortunately, renal function/creatinine worsening in association with decline in urine output despite IV diuretic therapy; still have some ongoing issues with her memory and comprehension with further testing to be done today. Exam Narrative: General: WD/WN
[2023-11-22 11:42] LABS: Glucose Point of Care 143 mg/dl (65-105)
[2023-11-22] MEDS: EPOETIN ALFA-EPBX 20,000 UNITS/ML VIAL 20000 UNITS SUB-Q (12:56)
[2023-11-22] MEDS: HYDROcodone/acetaminophen (*CRX) 10-325 MG TABLET 1 TAB PO ×2 (12:56→23:35)
[2023-11-22 14:00] VITALS: BP 122/63; PULSE 79; RESP 18; TEMP 35.7; O2SAT 100
[2023-11-22 16:31] LABS: Glucose Point of Care 156 mg/dl (65-105)
[2023-11-22 20:44] LABS: Glucose Point of Care 131 mg/dl (65-105)
[2023-11-22] MEDS: ATORVASTATIN 40 MG TABLET PO (20:47)
[2023-11-22] MEDS: hydrOXYzine pamoate 25 MG CAPSULE 50 MG PO (20:47)
[2023-11-22] MEDS: INSULIN GLARGINE (*BKC) 100 UNITS/ML 10 UNITS SUB-Q (20:47)
[2023-11-22] MEDS: traZODone HCL 50 MG TABLET PO (20:47)
[2023-11-22 20:51] VITALS: BP 104/58; PULSE 79; RESP 20; TEMP 36.4; O2SAT 99
[2023-11-23] MEDS: LEVOTHYROXINE SODIUM 112 MCG TABLET PO (05:07)
[2023-11-23] MEDS: valACYclovir HCL 500 MG TABLET 1000 MG PO ×2 (05:07→13:25)
[2023-11-23] MEDS: LEVOTHYROXINE SODIUM 25 MCG TABLET PO (05:07)
[2023-11-23 05:58] VITALS: BP 104/50; PULSE 72; RESP 20; TEMP 36.3; O2SAT 100
[2023-11-23 07:36] LABS: Basophils Absolute Auto 0.1 K/mm3 (0.0-0.1); Basophils Percent Auto 1.1 % (0.2-1.2); Eosinophils Absolute Auto 0.3 K/mm3 (0-0.3); Eosinophils Percent Auto 5.2 % (0-4.4); Hematocrit 25.7 % (37.0-47.0); Hemoglobin 7.5 g/dL (12.0-15.0); Immature Granulocyte Absolute 0.01 K/mm3 (0.00-0.031); Immature Granulocyte Percent A 0.2 % (0-0.5); Lymphocytes Percent Auto 26.6 % (18.3-44.2); Mean Corpuscular HGB Conc 29.2 g/dl (32-36); Mean Corpuscular Hemoglobin 24.1 pg (26-34); Mean Corpuscular Volume 82.6 fl (80-100); Mean Platelet Volume 10.3 fl (7.4-10.4); Monocytes Absolute Auto 0.5 K/mm3 (0.1-0.6); Neutrophils Absolute Auto 3.3 K/mm3 (1.3-6.7); Neutrophils Percent Auto 58.9 % (45.5-73.1); Nucleated Red Blood Cells Perc 0.5 % (0.0-0.2); Platelet Count Result 156 k/mm3 (150-375); Red Blood Count 3.11 M/mm3 (4.2-5.4); Red Cell Distribution Width 19.6 % (11.5-14.5); White Blood Count 5.6 K/mm3 (4.5-10.0)
[2023-11-23 07:55] LABS: Anisocytosis 1+; Hypochromasia 1+; Ovalocytes 1+; Platelet Estimate Adequate (Adequate); Schistocytes None Seen
[2023-11-23] MEDS: DEXTROSE 50% 25 GM/50 ML SYRINGE IV PUSH (07:58)
[2023-11-23 08:06] LABS: Alanine Aminotransferase 9 U/L (6-35); Alkaline Phosphatase 99 U/L (38-126); Anion Gap 11 mmol/L (4-12); Aspartate Amino Transferase 16 U/L (14-36); Bilirubin,Total 0.5 mg/dL (0.2-1.3); Blood Urea Nitrogen 57 mg/dL (7-17); Calcium 8.1 mg/dL (8.4-10.2); Carbon Dioxide 17 mmol/L (22-30); Chloride 105 mmol/L (98-107); Estimated CRCL calculation 18 ml/min; Estimated Glomerular Filt Rate 11; Glucose 46 mg/dL (65-110); Phosphorus 6.4 mg/dL (2.5-4.5); Sodium 133 mmol/L (137-145)
[2023-11-23 08:13] LABS: Glucose Point of Care 50 mg/dl (65-105)
[2023-11-23 08:17] LABS: INR 1.3; Prothrombin Time 16.6 Seconds (11.1-14.7)
[2023-11-23 08:18] LABS: Partial Thromboplastin Time 35.3 Seconds (22.3-36.8)
[2023-11-23 08:25] LABS: Glucose Point of Care 73 mg/dl (65-105)
[2023-11-23 08:50] LABS: Glucose Point of Care 79 mg/dl (65-105)
--- NOTE | 2023-11-23 09:05 | PCNWS ---
Weekly nutritional screen. Patient is tolerating current Diabetic/4gm NA diet with adequate intake at 100%. No weight loss reported. No nutritional needs at this time.
[2023-11-23] MEDS: TOLNAFTATE 1% POWDER 45 GM BTL 1 APPLIC TOPICAL ×2 (09:45→20:20)
[2023-11-23] MEDS: AMOXICILLIN/CLAVULANATE K 875-125 MG TAB 1 TABLET PO ×2 (09:45→20:19)
[2023-11-23] MEDS: FAMOTIDINE 20 MG TABLET 40 MG PO (09:45)
[2023-11-23] MEDS: FERROUS SULFATE DRIED 142 MG TABCR PO (09:46)
[2023-11-23] MEDS: ASCORBIC ACID 125 MG TABLET PO (09:46)
[2023-11-23] MEDS: PANTOPRAZOLE 40 MG TABLET PO (09:46)
[2023-11-23] MEDS: DOXYCYCLINE HYCLATE 100 MG TABLET PO ×2 (09:47→20:20)
[2023-11-23] MEDS: EPOETIN ALFA-EPBX 10,000 UNITS/ML VIAL 10000 UNITS SUB-Q (09:48)
[2023-11-23] MEDS: BUMETANIDE INJ 1 MG/4 ML VIAL IV PUSH ×2 (09:51→16:57)
[2023-11-23 09:54] VITALS: BP 104/45
[2023-11-23 11:01] VITALS: BP 122/65; PULSE 81
[2023-11-23 11:42] LABS: Glucose Point of Care 68 mg/dl (65-105)
--- NOTE | 2023-11-23 12:48 | WPDNEURCNPN ---
Assessment and Plan Assessment and plan (1) Mild dementia: Code(s): F03.A0 - Unspecified dementia, mild, without behavioral disturbance, psychotic disturbance, mood disturbance, and anxiety Status: Acute Plan 1. Mild dementia 2. Multiple comorbid conditions she will benefit from the supportive care she is already taking trazodone 50mg HS for the anxiety and there is no other medication in the list which we have to be concerned about dementia treatment can be continued as such Consult date: 11/23/23 HPI: Kylie Marquez is a 68 year old female Admitted to the hospital through the emergency room for the complaints of generalized weakness with profuse diarrhea diffuse abdominal pain and mild shortness of breath in addition to the history of being on apixaban 5mg twice a day, insulin 28units subQ HS, atorvastatin 40mg HS, lisinopril 40mg daily every morning, levothyroxine 137mcg daily, hydroxyzine 50mg 3 times a day p.r.n. 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 ON LICENSE OF [facility] Past Medical History Medical History Chronic anemia Chronic anticoagulation Coronary artery disease Diabetic neuropathy Hyperlipidemia Hypertension Insulin dependent type 2 diabetes mellitus Osteomyelitis Paroxysmal atrial fibrillation Stage 3b chronic kidney disease Urinary retention Surgical History Surgical History History of amputation of toe History of coronary artery bypass graft History of hysterectomy Family History Family History Sibling Thymus cancer Diabetes mellitus All 4 siblings Lung cancer, lower lobe Melanoma Lymph edema Mother Family history of emphysema Father Acute myocardial infarction Social History Social History Social History: Surrogate medical decision maker: Natan Marquez, spouse. Code status: Full code. Smoking packs per day: 1 Smoking cigarettes per day: 20.0 Years smoked: 30 Smoking pack-years: 30.00 Smoking status: Former smoker Tobacco type: cigarettes Second hand tobacco smoke exposure: Yes ( smokes) Smoking end date: 03/15/06 Alcohol intake: never Substance use: never Substance use type: marijuana Do You Feel Safe in your Home?: Yes Lack of Transportation: YES Lack of Food: Never True Current Housing: I Have Housing Concerned About Future Housing: No Difficulty Paying Gas/Electric Bills: No Difficulty Paying for Meds: No Currently Unemployed: No Education: Trade/Vocational Certificate Difficulty w/ Childcare or Family Care: No Gender identity (if verbalized by the patient): Female Spiritual care concerns: No Meds Home Medications and Allergies Home Medications Medication Instructions Recorded Confirmed Type famotidine 40 mg tablet 40 mg PO DAILY #90 tabs 09/05/11/16/23 Rx apixaban 5 mg tablet (Eliquis) 5 mg PO BID 09/21/21 11/19/23 History insulin degludec 100 unit/mL (3 28 unit subcut HS 09/22/21 11/16/23 History mL) subcutaneous pen (Tresiba FlexTouch U-100 insulin) amlodipine 2.5 mg tablet 2.5 mg PO QAM 1 month #30 tabs 10/21/21 11/16/23 Rx atorva
[2023-11-23] MEDS: MICONAZOLE NITRATE 2% CREAM 30 GM TUBE 1 APPLIC TOPICAL ×2 (13:24→20:20)
--- NOTE | 2023-11-23 13:38 | PCPTNOTE ---
Patient refused treatment this session due to not feeling well. Patient states her blood sugar and blood pressure have been low and she does not feel well. Patient states I want to do therapy right if I am going to do it and the way I am feeling I wont be able to do it right. PT will continue to follow per plan of care.
[2023-11-23 14:00] VITALS: BP 94/52; PULSE 71; RESP 14; TEMP 36.1; O2SAT 100
--- NOTE | 2023-11-23 15:38 | PM.IMPN ---
Progress Note: A&P Assessment and Plan (1) Diarrhea: Qualifiers: Diarrhea type: presumed infectious Qualified Code(s): R19.7 - Diarrhea, unspecified Code(s): R19.7 - Diarrhea, unspecified Status: Acute Assessment and Plan: - CT abd/pelvis: Moderate bilateral pleural effusions. Moderate abdominopelvic ascites. Cholelithiasis. Diffuse soft tissue anasarca. - C. diff negative - stool culture pending diarrhea resolved (2) Thigh shingles: Code(s): B02.9 - Zoster without complications Status: Suspected Assessment and Plan: - patch to proximal/anterior left thigh that started as small vesicles. Vesicles have since ruptured, area is erythematous/open without crusting. Isolation precautions ordered - started on Valtrex x 7days, ends 11/23/23 (3) Ulcer of lower extremity: Qualifiers: Laterality: left Non-pressure ulcer stage: limited to breakdown of skin Qualified Code(s): L97.921 - Non-pressure chronic ulcer of unspecified part of left lower leg limited to breakdown of skin Code(s): L97.909 - Non-pressure chronic ulcer of unspecified part of unspecified lower leg with unspecified severity Status: Acute Assessment and Plan: - ADELA ordered of LLE - low suspicion for DVT given patient is on Eliquis - wound consulted - will add ANNETTE, previously negative in 2020 - DDx: high suspicion for peripheral artery disease, cannot exclude SLE or bullous pemphigoid. S/p Vanc and Zosyn Now on Doxy and Augmentin x 10 days monitor (4) Anasarca: Code(s): R60.1 - Generalized edema Status: Acute Assessment and Plan: - BNP elevated, echo ordered (no previous on file) - on Bumex 2 mg PO daily, will continue as Bumex 1.5 mg BID IVP - TSH elevated with low t4 continue home levothyroxine F/u TSH studies outpatient and adjustment then - albumin WNL (5) Swelling of vagina: Code(s): N89.9 - Noninflammatory disorder of vagina, unspecified Status: Acute Assessment and Plan: - anasarca vs yeast infection vs combination thereof - Diflucan 150 mg PO x1 - tolnaftate powder (6) Chronic diastolic (congestive) heart failure: Code(s): I50.32 - Chronic diastolic (congestive) heart failure Status: Chronic Assessment and Plan: - BNP 20,300 - Echo 11/15 :Left ventricular systolic function is mildly reduced, estimated at 45-50% - currently on: Bumex 2 mg daily, decreased Bumex 1mg bid, given that increased to 3.1 from 2.8 -11/22 : Cr 2.7 > 4, GFR 11,BUN 57 - daily weights - monitor I&Os - trend renal function nephrology following (7) Stage 3b chronic kidney disease: Code(s): N18.32 - Chronic kidney disease, stage 3b Status: Chronic Assessment and Plan: -11/22 : Cr 2.7 > 4, GFR 11,BUN 57 - creatinine 2.8 and GFR 17, previously 2.7 and GFR 18 on 10/11/2023 - nephrology consulted - trend renal function - trend electrolytes, correct as needed nephrology following (8) Chronic anemia: Code(s): D64.9 - Anemia, unspecified Status: Chronic Assessment and Plan: -11/22 : 7.5<8.5 - hemoglobin 6.9, isat 7 and - isat 7 and FOBT positive - s/p 1 unit pRBC Hb 7.6 today S/p 1000/1000 mg of IV iron, no more iron supplements stop Protonix Upper and lower Endoscopy no remarkable findings Appreciate GI input (9) Type 2 diabetes mellitus, uncontrolled, with renal complications: Status: Chronic Assessment and Plan: - hypoglycemia protocol - POC blood glucose ACHS - home medication: lispro 10 units t.i.d. with meals, Tresiba 28 units HS - correct regimen ordered Decreased lantus to 8 units daily, and SSI. monitor blood sugar one more day for final insulin regimen adjustment - A1C 9.5% on 10/11/2023 (10) Aphasia: Code(s): R47.01 - Aphasia Status: Acute Assessment and Plan: receptive aphasia vs memory defi
[2023-11-23] MEDS: HYDROcodone/acetaminophen (*CRX) 5-325 MG TABLET 1 TAB PO (15:59)
[2023-11-23 17:33] LABS: Glucose Point of Care 121 mg/dl (65-105)
[2023-11-23 17:33] LABS: Glucose Point of Care 116 mg/dl (65-105)
[2023-11-23] MEDS: ATORVASTATIN 40 MG TABLET PO (20:19)
[2023-11-23] MEDS: traZODone HCL 50 MG TABLET PO (20:20)
[2023-11-23] MEDS: INSULIN GLARGINE (*BKC) 100 UNITS/ML 10 UNITS SUB-Q (20:21)
[2023-11-23 20:30] LABS: Glucose Point of Care 292 mg/dl (65-105)
[2023-11-23 21:00] VITALS: BP 105/67; PULSE 80; RESP 18; TEMP 36.5; O2SAT 99
[2023-11-24] MEDS: LEVOTHYROXINE SODIUM 25 MCG TABLET PO (05:20)
[2023-11-24] MEDS: LEVOTHYROXINE SODIUM 112 MCG TABLET PO (05:20)
[2023-11-24 05:38] VITALS: BP 118/50; PULSE 74; RESP 20; TEMP 37.1; O2SAT 98
[2023-11-24 06:12] LABS: Glucose Point of Care 91 mg/dl (65-105)
[2023-11-24 06:27] LABS: Hematocrit 25.4 % (37.0-47.0); Hemoglobin 7.5 g/dL (12.0-15.0); Mean Corpuscular HGB Conc 29.5 g/dl (32-36); Mean Corpuscular Hemoglobin 24.4 pg (26-34); Mean Corpuscular Volume 82.7 fl (80-100); Mean Platelet Volume 10.8 fl (7.4-10.4); Platelet Count Result 159 k/mm3 (150-375); Red Blood Count 3.07 M/mm3 (4.2-5.4); Red Cell Distribution Width 19.4 % (11.5-14.5); White Blood Count 5.3 K/mm3 (4.5-10.0)
[2023-11-24 06:37] LABS: Alanine Aminotransferase 8 U/L (6-35); Albumin Level 3.1 g/dL (3.5-5.1); Alkaline Phosphatase 101 U/L (38-126); Anion Gap 12 mmol/L (4-12); Aspartate Amino Transferase 15 U/L (14-36); Bilirubin,Total 0.6 mg/dL (0.2-1.3); Blood Urea Nitrogen 59 mg/dL (7-17); Calcium 8.3 mg/dL (8.4-10.2); Carbon Dioxide 15 mmol/L (22-30); Chloride 104 mmol/L (98-107); Estimated CRCL calculation 16 ml/min; Estimated Glomerular Filt Rate 10; Glucose 72 mg/dL (65-110); Potassium 5.4 mmol/L (3.4-5.0); Sodium 131 mmol/L (137-145)
[2023-11-24] MEDS: SODIUM ZIRCONIUM CYCLOSILICATE 10 GM POWD.PACK PO ×2 (07:44→10:11)
[2023-11-24] MEDS: FERROUS SULFATE DRIED 142 MG TABCR PO (07:48)
[2023-11-24] MEDS: AMOXICILLIN/CLAVULANATE K 875-125 MG TAB 1 TABLET PO ×2 (07:59→20:59)
[2023-11-24] MEDS: SODIUM BICARBONATE TAB 650 MG TABLET PO ×2 (07:59→16:29)
[2023-11-24] MEDS: PANTOPRAZOLE 40 MG TABLET PO (07:59)
[2023-11-24] MEDS: FAMOTIDINE 20 MG TABLET 40 MG PO (07:59)
[2023-11-24] MEDS: ASPIRIN 81 MG ENTERIC TABLET PO (07:59)
[2023-11-24] MEDS: DOXYCYCLINE HYCLATE 100 MG TABLET PO ×2 (07:59→20:59)
[2023-11-24] MEDS: ASCORBIC ACID 125 MG TABLET PO (07:59)
[2023-11-24] MEDS: MICONAZOLE NITRATE 2% CREAM 30 GM TUBE 1 APPLIC TOPICAL ×2 (08:00→20:59)
[2023-11-24] MEDS: TOLNAFTATE 1% POWDER 45 GM BTL 1 APPLIC TOPICAL ×2 (08:00→20:59)
[2023-11-24 08:13] LABS: Glucose Point of Care 105 mg/dl (65-105)
[2023-11-24 10:00] LABS: Potassium 5.4 mmol/L (3.4-5.0)
--- NOTE | 2023-11-24 11:23 | PCOTNOTE ---
Attempted 2 times for OT treatment session. Patient refuses to participate, states she is not well today, she is sick and she will not get out of bed. Patient states she needs a day of rest and be left alone.
[2023-11-24 11:51] LABS: Glucose Point of Care 84 mg/dl (65-105)
--- NOTE | 2023-11-24 12:34 | PM.PNNEP ---
Progress Note: A&P Assessment and Plan (1) SHREYA (acute kidney injury): Code(s): N17.9 - Acute kidney failure, unspecified Status: Chronic Assessment and Plan: marked decline in kidney function noted (see #2) started worsening in late 2022 with creatinine up to 1.7 - 2.2mg/dl however, during hospitalization (at [facility]) in July 2023, creatinine improved back to 1.4 - 1.5mg/dl then, in June 2023, jumped up to 2.7mg/dl admission creatinine up to 2.8mg/dl is this really SHREYA/ARF or is this just a manifestation of chronic kidney disease progression?? now complicated by anasarca/volume overload holding diuretics due to rising creatinine renal biopsy yesterday - hopefully some preliminary results later today follow trend of renal function with current interventions... (2) Stage 3b chronic kidney disease: Code(s): N18.32 - Chronic kidney disease, stage 3b Status: Chronic Assessment and Plan: due to biopsy proven diabetic nephropathy/nephrosclerosis (biopsy done in November 2021) in conjunction with vascular disease evidence of chronic kidney disease that dates back as far as 2017 had been running 1.1 - 1.6mg/dl for the last few years but is known to have worsened to the 2ish range with her hospitalization/acute infections recent rise in creatinine noted in September 2023 (see #1) (3) Anasarca: Code(s): R60.1 - Generalized edema Status: Acute Assessment and Plan: as noted by physical exam and imaging studies BNP elevated as well Echo results noted IV diuretics on hold due to worsening kidney function... follow I/Os and daily weights (4) Chronic anemia: Code(s): D64.9 - Anemia, unspecified Status: Chronic Assessment and Plan: suspect related to SHREYA versus CKD evidence of iron deficiency noted by anemia studies but also Hemoccult positive stools s/p EGD and colonoscopy - normal EGD and diverticulosis present; no active bleeding lesions PRBC transfusion per protocol follow trend of H/H on TRACY and s/p IV venofer (5) Ulcer of lower extremity: Qualifiers: Laterality: left Non-pressure ulcer stage: limited to breakdown of skin Qualified Code(s): L97.921 - Non-pressure chronic ulcer of unspecified part of left lower leg limited to breakdown of skin Code(s): L97.909 - Non-pressure chronic ulcer of unspecified part of unspecified lower leg with unspecified severity Status: Acute Assessment and Plan: complicated by possible cellulitis(?) follow culture data - negative to date on antibiotics (6) Hypertension: Code(s): I10 - Essential (primary) hypertension Status: Chronic Assessment and Plan: despite history, well controlled off lisinopril given #1 follow trend of hemodynamics (7) Type 2 diabetes mellitus, uncontrolled, with renal complications: Status: Chronic Assessment and Plan: follow accu-cheks glycemic control per hospitalists Will continue to follow Plan renal biopsy Subjective Date/time seen: 11/24/23 12:34 Interval history: Follow-up for acute kidney injury/acute renal failure on chronic kidney disease. Unable to see yesterday as she was out of room for renal biopsy -- tolerated the procedure reasonably well; unfortunately, despite holding IV diuretics, creatinine/renal function continues to deteriorate in association with declining urine output; swelling/edema seems the same if not a bit worse given diminished urine output as well. Exam Narrative: General: WD/WN female in NAD Heart: normal S1 and S2; no rub Lungs: clear anteriorly; decreased at bases Abdomen: soft, nontender, nondistended, positive bowel sounds Extremities: no cyanosis or clubbing; 2 - 3+ edema Skin: mild erythema in LLE Objective Data Vital Signs Vital Signs: Vital Signs Temp Pulse Resp BP Pulse Ox 11/24/23 12:00 96.7 F L
--- NOTE | 2023-11-24 12:34 | P.PNNP_ITS ---
Progress Note: A&P Assessment and Plan (1) SHREYA (acute kidney injury): Code(s): N17.9 - Acute kidney failure, unspecified Status: Chronic Assessment and Plan: * marked decline in kidney function noted (see #2) * started worsening in late 2022 with creatinine up to 1.7 - 2.2mg/dl * however, during hospitalization (at [facility]) in July 2023, creatinine improved back to 1.4 - 1.5mg/dl * then, in June 2023, jumped up to 2.7mg/dl * admission creatinine up to 2.8mg/dl * is this really SHREYA/ARF or is this just a manifestation of chronic kidney disease progression?? * now complicated by anasarca/volume overload * holding diuretics due to rising creatinine * renal biopsy yesterday - hopefully some preliminary results later today * follow trend of renal function with current interventions... (2) Stage 3b chronic kidney disease: Code(s): N18.32 - Chronic kidney disease, stage 3b Status: Chronic Assessment and Plan: * due to biopsy proven diabetic nephropathy/nephrosclerosis (biopsy done in November 2021) in conjunction with vascular disease * evidence of chronic kidney disease that dates back as far as 2017 * had been running 1.1 - 1.6mg/dl for the last few years but is known to have worsened to the 2ish range with her hospitalization/acute infections * recent rise in creatinine noted in September 2023 (see #1) (3) Anasarca: Code(s): R60.1 - Generalized edema Status: Acute Assessment and Plan: * as noted by physical exam and imaging studies * BNP elevated as well * Echo results noted * IV diuretics on hold due to worsening kidney function... * follow I/Os and daily weights (4) Chronic anemia: Code(s): D64.9 - Anemia, unspecified Status: Chronic Assessment and Plan: * suspect related to SHREYA versus CKD * evidence of iron deficiency noted by anemia studies * but also Hemoccult positive stools * s/p EGD and colonoscopy - normal EGD and diverticulosis present; no active bleeding lesions * PRBC transfusion per protocol * follow trend of H/H * on TRACY and s/p IV venofer (5) Ulcer of lower extremity: Qualifiers: Laterality: left Non-pressure ulcer stage: limited to breakdown of skin Qualified Code(s): L97.921 - Non-pressure chronic ulcer of unspecified part of left lower leg limited to breakdown of skin Code(s): L97.909 - Non-pressure chronic ulcer of unspecified part of unspecified lower leg with unspecified severity Status: Acute Assessment and Plan: * complicated by possible cellulitis(?) * follow culture data - negative to date * on antibiotics (6) Hypertension: Code(s): I10 - Essential (primary) hypertension Status: Chronic Assessment and Plan: * despite history, well controlled * off lisinopril given #1 * follow trend of hemodynamics (7) Type 2 diabetes mellitus, uncontrolled, with renal complications: Status: Chronic Assessment and Plan: * follow accu-cheks * glycemic control per hospitalists Will continue to follow Plan renal biopsy Subjective Date/time seen: 11/24/23 12:34 Interval history: Follow-up for acute kidney injury/acute renal failure on chronic kidney disease. Unable to see yesterday as she was out of room for renal biopsy -- tolerated the procedure reasonably well; unfortunately, despite holding IV diuretics, creatinine/renal function continues to deteriorate in association with declining urine output; swelling/edema seems the same if not a
--- NOTE | 2023-11-24 13:16 | PCPTNOTE ---
Patient refused PT stating I am having an anxiety attack and I can't do anything. I can't think straight and I am trying to get my act together. Encouraged patient to participate in therapy and educated patient on the importance of mobility and strengthening. Patient continued to refuse. PT will continue to follow per plan of care.
[2023-11-24 14:00] VITALS: BP 112/56; PULSE 76; RESP 14; TEMP 35.9; O2SAT 100
--- NOTE | 2023-11-24 16:00 | P.PNCROSS_ITS ---
Event Note Event Note Event Note: Preliminary renal biopsy report: * advanced diabetic nephropathy * 60% interstitial fibrosis and tubular atrophy Long and extensive discussion (> 20 minutes) with patient regarding these results. I suspect her ongoing issues with fluid overload/anasarca, metabolic acidosis, anemia, and hyperkalemia are related to her advanced kidney disease and poor renal reserve. 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 I suspect once dialysis is initiated, she will likely be dialysis- dependent given her advanced kidney disease at baseline. I discussed dialysis with the patient, the procedure itself, the need for dialysis catheter placement, along with risks and benefits. She is willing to proceed with initiation of dialysis.
--- NOTE | 2023-11-24 16:01 | PM.IMPN ---
Progress Note: A&P Assessment and Plan (1) Diarrhea: Qualifiers: Diarrhea type: presumed infectious Qualified Code(s): R19.7 - Diarrhea, unspecified Code(s): R19.7 - Diarrhea, unspecified Status: Acute Assessment and Plan: - CT abd/pelvis: Moderate bilateral pleural effusions. Moderate abdominopelvic ascites. Cholelithiasis. Diffuse soft tissue anasarca. - C. diff negative - stool culture pending diarrhea resolved (2) Thigh shingles: Code(s): B02.9 - Zoster without complications Status: Suspected Assessment and Plan: - patch to proximal/anterior left thigh that started as small vesicles. Vesicles have since ruptured, area is erythematous/open without crusting. Isolation precautions ordered - started on Valtrex x 7days, ends 11/23/23 (3) Ulcer of lower extremity: Qualifiers: Laterality: left Non-pressure ulcer stage: limited to breakdown of skin Qualified Code(s): L97.921 - Non-pressure chronic ulcer of unspecified part of left lower leg limited to breakdown of skin Code(s): L97.909 - Non-pressure chronic ulcer of unspecified part of unspecified lower leg with unspecified severity Status: Acute Assessment and Plan: - ADELA ordered of LLE - low suspicion for DVT given patient is on Eliquis - wound consulted - will add ANNETTE, previously negative in 2020 - DDx: high suspicion for peripheral artery disease, cannot exclude SLE or bullous pemphigoid. S/p Vanc and Zosyn Now on Doxy and Augmentin x 10 days monitor (4) Anasarca: Code(s): R60.1 - Generalized edema Status: Acute Assessment and Plan: - BNP elevated, echo ordered (no previous on file) - on Bumex 2 mg PO daily, will continue as Bumex 1.5 mg BID IVP - TSH elevated with low t4 continue home levothyroxine F/u TSH studies outpatient and adjustment then - albumin WNL (5) Swelling of vagina: Code(s): N89.9 - Noninflammatory disorder of vagina, unspecified Status: Acute Assessment and Plan: - anasarca vs yeast infection vs combination thereof - Diflucan 150 mg PO x1 - tolnaftate powder (6) Chronic diastolic (congestive) heart failure: Code(s): I50.32 - Chronic diastolic (congestive) heart failure Status: Chronic Assessment and Plan: - BNP 20,300 - Echo 11/15 :Left ventricular systolic function is mildly reduced, estimated at 45-50% - On hold Bumex 1mg bid, given that increased to 3.1 from 2.8 -11/22 : Cr 2.7 > 4> 4.6, GFR 11,BUN 57 - daily weights - monitor I&Os - trend renal function nephrology following (7) Stage 3b chronic kidney disease: Code(s): N18.32 - Chronic kidney disease, stage 3b Status: Chronic Assessment and Plan: -11/22 : Cr 2.7 > 4, GFR 11,BUN 57 - creatinine 2.8 and GFR 17, previously 2.7 and GFR 18 on 10/11/2023 - nephrology consulted - trend renal function - trend electrolytes, correct as needed nephrology following -surgery is consulted for placement of dialysis catheter -will be initiated dialysis (8) Chronic anemia: Code(s): D64.9 - Anemia, unspecified Status: Chronic Assessment and Plan: -11/22 : 7.5<8.5 - hemoglobin 6.9, isat 7 and - isat 7 and FOBT positive - s/p 1 unit pRBC Hb 7.6 today S/p 1000/1000 mg of IV iron, no more iron supplements stop Protonix Upper and lower Endoscopy no remarkable findings Appreciate GI input (9) Type 2 diabetes mellitus, uncontrolled, with renal complications: Status: Chronic Assessment and Plan: - hypoglycemia protocol - POC blood glucose ACHS - home medication: lispro 10 units t.i.d. with meals, Tresiba 28 units HS - correct regimen ordered Decreased lantus to 8 units daily, and SSI. monitor blood sugar one more day for final insulin regimen adjustment - A1C 9.5% on 10/11/2023 (10) Aphasia: Code(s): R47.01 - Aphasia Status: Acute
[2023-11-24 16:55] LABS: Glucose Point of Care 97 mg/dl (65-105)
[2023-11-24 20:00] VITALS: BP 109/66; PULSE 87; RESP 18; TEMP 36.9; O2SAT 98
[2023-11-24] MEDS: traZODone HCL 50 MG TABLET PO (20:59)
[2023-11-24] MEDS: ATORVASTATIN 40 MG TABLET PO (20:59)
[2023-11-24 21:06] LABS: Glucose Point of Care 111 mg/dl (65-105)
[2023-11-25 04:05] VITALS: BP 108/81; PULSE 86; RESP 20; TEMP 37.3; O2SAT 99
[2023-11-25 05:04] LABS: Glucose Point of Care 72 mg/dl (65-105)
[2023-11-25] MEDS: LEVOTHYROXINE SODIUM 25 MCG TABLET PO (05:31)
[2023-11-25] MEDS: LEVOTHYROXINE SODIUM 112 MCG TABLET PO (05:31)
[2023-11-25 05:39] LABS: Glucose Point of Care 142 mg/dl (65-105)
[2023-11-25 06:25] LABS: Basophils Percent Auto 0.6 % (0.2-1.2); Eosinophils Absolute Auto 0.3 K/mm3 (0-0.3); Eosinophils Percent Auto 5.7 % (0-4.4); Hematocrit 27.5 % (37.0-47.0); Hemoglobin 8.2 g/dL (12.0-15.0); Immature Granulocyte Absolute 0.03 K/mm3 (0.00-0.031); Immature Granulocyte Percent A 0.6 % (0-0.5); Lymphocytes Absolute Auto 1.13 K/mm3 (0.9-3.2); Lymphocytes Percent Auto 23.7 % (18.3-44.2); Mean Corpuscular HGB Conc 29.8 g/dl (32-36); Mean Corpuscular Hemoglobin 24.2 pg (26-34); Mean Corpuscular Volume 81.1 fl (80-100); Mean Platelet Volume 9.8 fl (7.4-10.4); Monocytes Absolute Auto 0.4 K/mm3 (0.1-0.6); Monocytes Percent Auto 7.3 % (2.6-8.5); Neutrophils Percent Auto 62.1 % (45.5-73.1); Nucleated Red Blood Cells Perc 0.8 % (0.0-0.2); Platelet Count Result 148 k/mm3 (150-375); Red Blood Count 3.39 M/mm3 (4.2-5.4); White Blood Count 4.8 K/mm3 (4.5-10.0)
[2023-11-25 06:37] LABS: Partial Thromboplastin Time 33.6 Seconds (22.3-36.8)
[2023-11-25 06:38] LABS: Alanine Aminotransferase 9 U/L (6-35); Albumin Level 3.3 g/dL (3.5-5.1); Alkaline Phosphatase 120 U/L (38-126); Anion Gap 14 mmol/L (4-12); Aspartate Amino Transferase 18 U/L (14-36); Bilirubin,Total 0.8 mg/dL (0.2-1.3); Blood Urea Nitrogen 61 mg/dL (7-17); Calcium 8.4 mg/dL (8.4-10.2); Carbon Dioxide 15 mmol/L (22-30); Chloride 101 mmol/L (98-107); Estimated CRCL calculation 16 ml/min; Estimated Glomerular Filt Rate 10; Glucose 88 mg/dL (65-110); Phosphorus 6.8 mg/dL (2.5-4.5); Potassium 5.3 mmol/L (3.4-5.0); Sodium 130 mmol/L (137-145)
[2023-11-25 07:18] LABS: Hepatitis B Surface Antigen Negative (Negative)
[2023-11-25 07:35] LABS: Hepatitis B Surface Anti Res Negative
[2023-11-25 08:00] VITALS: O2SAT 99
[2023-11-25 08:13] LABS: Glucose Point of Care 114 mg/dl (65-105)
[2023-11-25 08:15] LABS: Anisocytosis 2+; Hypochromasia 2+; Macrocytosis 1+ (NORMAL); Microcytosis 1+ (NORMAL); Platelet Estimate Decreased (Adequate); Schistocytes None Seen
[2023-11-25] MEDS: HYDROcodone/acetaminophen (*CRX) 10-325 MG TABLET 1 TAB PO (08:48)
[2023-11-25] MEDS: FERROUS SULFATE DRIED 142 MG TABCR PO (09:55)
[2023-11-25] MEDS: MICONAZOLE NITRATE 2% CREAM 30 GM TUBE 1 APPLIC TOPICAL (09:56)
[2023-11-25] MEDS: ASCORBIC ACID 125 MG TABLET PO (09:56)
[2023-11-25] MEDS: SODIUM BICARBONATE TAB 650 MG TABLET PO ×2 (09:56→16:33)
[2023-11-25] MEDS: ASPIRIN 81 MG ENTERIC TABLET PO (09:56)
[2023-11-25] MEDS: AMOXICILLIN/CLAVULANATE K 875-125 MG TAB 1 TABLET PO ×2 (09:56→20:33)
[2023-11-25] MEDS: DOXYCYCLINE HYCLATE 100 MG TABLET PO ×2 (09:56→20:33)
[2023-11-25] MEDS: PANTOPRAZOLE 40 MG TABLET PO (09:56)
[2023-11-25] MEDS: FAMOTIDINE 20 MG TABLET 40 MG PO (09:56)
[2023-11-25] MEDS: TOLNAFTATE 1% POWDER 45 GM BTL 1 APPLIC TOPICAL ×2 (09:57→20:35)
[2023-11-25] MEDS: EPOETIN ALFA-EPBX 10,000 UNITS/ML VIAL 10000 UNITS SUB-Q (09:59)
--- NOTE | 2023-11-25 10:43 | PM.CNGS ---
Assessment and Plan Assessment and plan (1) Acute kidney injury superimposed on chronic kidney disease: Code(s): N17.9 - Acute kidney failure, unspecified; N18.9 - Chronic kidney disease, unspecified Status: Acute Assessment and Plan: Patient presented with SHREYA on CKD and is not responding well to medical treatment. Nephrology is requesting placement of a tunneled hemodialysis catheter. Description of the procedure, risks, benefits, alternatives, and expected outcomes were discussed with the patient in detail. She agrees to proceed. Dr. Alegre will add her onto the surgery schedule tomorrow for insertion tunneled dialysis catheter. Will allow her to eat a diabetic diet and make her NPO after midnight. 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 (6) Anasarca: Code(s): R60.1 - Generalized edema Status: Acute (7) Mild dementia: Code(s): F03.A0 - Unspecified dementia, mild, without behavioral disturbance, psychotic disturbance, mood disturbance, and anxiety Status: Acute (8) Coronary artery disease: Qualifiers: Coronary Disease-Associated Artery/Lesion type: unspecified vessel or lesion type [place] vs. transplanted heart: [place] heart Associated angina: without angina Qualified Code(s): I25.10 - Atherosclerotic heart disease of [place] coronary artery without angina pectoris Code(s): I25.10 - Atherosclerotic heart disease of [place] coronary artery without angina pectoris Status: Chronic Plan I have discussed the patient's case and plan of care with Dr. Alegre. Thank you for allowing us to see the patient in consultation. History of Present Illness Consult details Consult date: 11/25/23 Reason for consult: other (Tunneled dialysis catheter placement) Requesting physician: Florence White MD Narrative: This is a 68-year-old woman with PMH of CKD, chronic anemia, CAD, type 2 diabetes with neuropathy, paroxysmal atrial fibrillation on Eliquis which has been held since 11/18/2023, hypertension, hyperlipidemia, osteomyelitis and peripheral vascular disease status post right BKA and multiple left toe amputations. We have been asked to see the patient in surgical consultation for placement of a tunneled dialysis catheter. She was admitted on 11/16/2023 with diarrhea, anasarca, and SHREYA with chronic kidney disease. Nephrology has been treating the patient medically but her renal function and urine output continues to decline. She continued to have ongoing issues with fluid overload, metabolic acidosis, anemia, and hyperkalemia, which are felt to be related to her advanced kidney disease. Nephrology wishes to initiate hemodialysis and requested placement of a tunneled dialysis catheter. She is now seen on the medical floor. Denies having hemodialysis in the past. Review of Systems Review of Systems: All systems reviewed & are unremarkable except as noted in HPI and below PMFSH Past Medical History Medical History Chronic anemia Chronic anticoagulation Coronary artery disease Diabetic neuropathy Hyperlipidemia Hypertension Insulin dependent type 2 diabetes mellitus Osteomyelitis Paroxysmal atrial fibrillation Stage 3b chronic kidney disease Urinary retention Surgical History Surgical History History of amputation of toe History of coronary artery bypass graft History of hysterectomy History of right below knee amputation Family History Famil
--- NOTE | 2023-11-25 11:03 | PCPTNOTE ---
Patient refused PT stating she was too upset to do therapy. Patient states she was told that she needs to have dialysis and that is why she is upset. Patient tearful and began to cry stating I am sorry but I just can't do therapy. PT will continue to follow.
[2023-11-25 11:56] LABS: Glucose Point of Care 124 mg/dl (65-105)
[2023-11-25] MEDS: BUMETANIDE INJ 1 MG/4 ML VIAL 2 MG IV PUSH (13:37)
[2023-11-25 14:00] VITALS: BP 130/65; PULSE 85; RESP 16; TEMP 36.3; O2SAT 97
--- NOTE | 2023-11-25 14:02 | PM.PNNEP ---
Progress Note: A&P Assessment and Plan (1) SHREYA (acute kidney injury): Code(s): N17.9 - Acute kidney failure, unspecified Status: Chronic Assessment and Plan: marked decline in kidney function noted (see #2) started worsening in late 2022 with creatinine up to 1.7 - 2.2mg/dl however, during hospitalization (at [facility]) in July 2023, creatinine improved back to 1.4 - 1.5mg/dl then, in June 2023, jumped up to 2.7mg/dl admission creatinine up to 2.8mg/dl now complicated by anasarca/volume overload, diminished urine output despite high dose diuretic therapy, metabolic acidosis, and hyperkalemia RENAL BIOPSY done (11/24/23): class III advanced nodular diabetic glomerulosclerosis ~ 60% interstitial fibrosis and tubular atrophy given lack of improvement in renal function despite aggressive therapy, will plan renal replacement therapy/dialysis I suppose dialysis could be temporary but given her advanced disease as noted by renal biopsy, it is possible she may be dialysis dependent proceed with dialysis once HD catheter placed... (2) Stage 3b chronic kidney disease: Code(s): N18.32 - Chronic kidney disease, stage 3b Status: Chronic Assessment and Plan: due to biopsy proven diabetic nephropathy/nephrosclerosis (biopsy done in November 2021) in conjunction with vascular disease evidence of chronic kidney disease that dates back as far as 2017 had been running 1.1 - 1.6mg/dl for the last few years but is known to have worsened to the 2ish range with her hospitalization/acute infections recent rise in creatinine noted in September 2023 (see #1) and during this hospitalization (3) Anasarca: Code(s): R60.1 - Generalized edema Status: Acute Assessment and Plan: as noted by physical exam and imaging studies BNP elevated as well Echo results noted IV diuretics with only limited response fluid removal/ultrafiltration with dialysis once started follow I/Os and daily weights (4) Chronic anemia: Code(s): D64.9 - Anemia, unspecified Status: Chronic Assessment and Plan: suspect related to CKD evidence of iron deficiency noted by anemia studies as well Hemoccult positive stools noted s/p EGD and colonoscopy - no active bleeding lesions PRBC transfusion per protocol follow trend of H/H on TRACY and s/p IV venofer (5) Ulcer of lower extremity: Qualifiers: Laterality: left Non-pressure ulcer stage: limited to breakdown of skin Qualified Code(s): L97.921 - Non-pressure chronic ulcer of unspecified part of left lower leg limited to breakdown of skin Code(s): L97.909 - Non-pressure chronic ulcer of unspecified part of unspecified lower leg with unspecified severity Status: Acute Assessment and Plan: complicated by possible cellulitis(?) follow culture data - negative to date on antibiotics (6) Receptive aphasia: Code(s): R47.01 - Aphasia Status: Acute Assessment and Plan: noted following EGD/colonoscopy imaging to date noted Neurology following element of uremia(?) follow mentation (7) Hypertension: Code(s): I10 - Essential (primary) hypertension Status: Chronic Assessment and Plan: despite history, well controlled off lisinopril given #1; can resume once dialysis started if needed follow trend of hemodynamics (8) Type 2 diabetes mellitus, uncontrolled, with renal complications: Status: Chronic Assessment and Plan: follow accu-cheks glycemic control per hospitalists Will continue to follow Subjective Date/time seen: 11/25/23 14:02 Interval history: Follow-up for acute kidney injury/acute renal failure on chronic kidney disease. No acute distress voiced at the time of my visit; noted plans for HD catheter placement tomorrow; no real significant improvement in renal function/creatinine at this time and still remains olig
--- NOTE | 2023-11-25 14:02 | P.PNNP_ITS ---
Progress Note: A&P Assessment and Plan (1) SHREYA (acute kidney injury): Code(s): N17.9 - Acute kidney failure, unspecified Status: Chronic Assessment and Plan: * marked decline in kidney function noted (see #2) * started worsening in late 2022 with creatinine up to 1.7 - 2.2mg/dl * however, during hospitalization (at [facility]) in July 2023, creatinine improved back to 1.4 - 1.5mg/dl * then, in June 2023, jumped up to 2.7mg/dl * admission creatinine up to 2.8mg/dl * now complicated by anasarca/volume overload, diminished urine output despite high dose diuretic therapy, metabolic acidosis, and hyperkalemia * RENAL BIOPSY done (11/24/23): * class III advanced nodular diabetic glomerulosclerosis * ~ 60% interstitial fibrosis and tubular atrophy * given lack of improvement in renal function despite aggressive therapy, will plan renal replacement therapy/dialysis * I suppose dialysis could be temporary but given her advanced disease as noted by renal biopsy, it is possible she may be dialysis dependent * proceed with dialysis once HD catheter placed... (2) Stage 3b chronic kidney disease: Code(s): N18.32 - Chronic kidney disease, stage 3b Status: Chronic Assessment and Plan: * due to biopsy proven diabetic nephropathy/nephrosclerosis (biopsy done in November 2021) in conjunction with vascular disease * evidence of chronic kidney disease that dates back as far as 2016 * had been running 1.1 - 1.6mg/dl for the last few years but is known to have worsened to the 2ish range with her hospitalization/acute infections * recent rise in creatinine noted in September 2023 (see #1) and during this hospitalization (3) Anasarca: Code(s): R60.1 - Generalized edema Status: Acute Assessment and Plan: * as noted by physical exam and imaging studies * BNP elevated as well * Echo results noted * IV diuretics with only limited response * fluid removal/ultrafiltration with dialysis once started * follow I/Os and daily weights (4) Chronic anemia: Code(s): D64.9 - Anemia, unspecified Status: Chronic Assessment and Plan: * suspect related to CKD * evidence of iron deficiency noted by anemia studies as well * Hemoccult positive stools noted * s/p EGD and colonoscopy - no active bleeding lesions * PRBC transfusion per protocol * follow trend of H/H * on TRACY and s/p IV venofer (5) Ulcer of lower extremity: Qualifiers: Laterality: left Non-pressure ulcer stage: limited to breakdown of skin Qualified Code(s): L97.921 - Non-pressure chronic ulcer of unspecified part of left lower leg limited to breakdown of skin Code(s): L97.909 - Non-pressure chronic ulcer of unspecified part of unspecified lower leg with unspecified severity Status: Acute Assessment and Plan: * complicated by possible cellulitis(?) * follow culture data - negative to date * on antibiotics (6) Receptive aphasia: Code(s): R47.01 - Aphasia Status: Acute Assessment and Plan: * noted following EGD/colonoscopy * imaging to date noted * Neurology following * element of uremia(?) * follow mentation (7) Hypertension: Code(s): I10 - Essential (primary) hypertension Status: Chronic Assessment and Plan: * despite history, well controlled * off lisinopril given #1; can resume once dialysis started if needed * follow trend of hemodynamics (8) Type 2 diabetes mellitus, uncontrolled, with renal complications: Status: Chronic
--- NOTE | 2023-11-25 15:55 | WPDNEUROPN ---
Progress Note: A&P Assessment and Plan (1) Mild dementia: Code(s): F03.A0 - Unspecified dementia, mild, without behavioral disturbance, psychotic disturbance, mood disturbance, and anxiety Status: Acute Assessment and Plan: the differential diagnosis of dementia will be with a metabolic encephalopathy since he do does have numerous metabolic and medical problems. Has history of examination of the mental status over the course of time may be helpful. Plan Suggest to continue with the supportive care. I would suggest checking her her B12 and folate and vitamin-D level. Subjective Date/time seen: 11/25/23 15:55 Interval history: Patient was previously seen by Dr. Booth with regard to changes in mental status. She has multiple medical problems including anemia, chronic kidney disease, being planned for hemodialysis, atrial fibrillation. She denies any pertinent symptoms today specifically no headache or diplopia or weakness in arms or legs. She does have partial amputation of the right leg. Review of Systems Review of Systems: overall she is feeling better than before but denies any other pertinent symptoms. No nausea vomiting. No hallucinations. No agitated behavior reported by the nursing staff. Exam Narrative: No aphasia or dysarthria. She has awake but sleepy and a tends to go back to sleep fairly easily. She is very pleasant and does want to talk. She is able to name 5 colors without any problem but she had difficulty naming 5 restaurants or 5 big cities. She is able to follow one-step command and name objects. Cranial anywhere testing were within normal limits. Motor system moving both upper and lower limbs however she has amputation of the right lower limb around the knee. Objective Data Vital Signs Vital Signs: Vital Signs - 24 hr 11/24/23 20:00 11/25/23 04:05 11/25/23 08:00 Temperature 98.4 F 99.1 F Pulse Rate 87 86 Respiratory Rate 18 20 Blood Pressure 109/66 108/81 Pulse Oximetry 98 99 99 Oxygen Delivery Room Air 11/25/23 14:00 Temperature 97.4 F L Pulse Rate 85 Respiratory Rate 16 Blood Pressure 130/65 Pulse Oximetry 97 Oxygen Delivery Intake/Output Intake/Output: Intake & Output 11/22/23 11/23/23 11/24/23 11/25/23 23:59 23:59 23:59 23:59 Intake Total 787 041 6431 570 Output Total 375 350 275 Balance 267 778 3062 295 Meds/Results Medications: Active Medications Generic Name Dose Route Start Last Admin Trade Name Abdiq PRN Reason Stop Dose Admin Acetaminophen 1,000 mg 11/16/23 15:34 11/21/23 17:17 Acetaminophen 500 Mg Tablet PO 1,000 mg Q6H PRN Administration Pain (Scale Score 4-6) Hydrocodone Bitart/Acetaminophen 1 tab 11/22/23 11:08 11/23/23 15:59 Hydrocodone/Acetaminophen (*Crx) 5-325 Mg Tablet PO 1 tab Q6H PRN Administration Pain Rated 4-6 Hydrocodone Bitart/Acetaminophen 1 tab 11/22/23 11:09 11/25/23 08:48 Hydrocodone/Acetaminophen (*Crx) 10-325 Mg Tablet PO 1 tab Q6H PRN Administration Pain Rated 7-10 Amlodipine Besylate 2.5 mg 11/17/23 09:00 11/21/23 08:37 Amlodipine Besylate 2.5 Mg Tablet PO 2.5 mg QAM SELMA Administration Amoxicillin/Clavulanate Potassium 1 tablet 11/18/23 12:00 11/25/23 09:56 Amoxicillin/Clavulanate K 875-125 Mg Tab PO 1 tablet Q12HR SELMA Administration Apixaban 5 mg 11/16/23 21:00 11/18/23 08:58 Apixaban 5 Mg Tablet PO 5 mg Q12HR SELMA Administration Ascorbic Acid 125 mg 11/17/23 09:00 11/25/23 09:56 Ascorbic Acid 125 Mg Tablet PO 125 mg QAM SELMA Administration Aspirin 81 mg 11/21/23 09:00 11/25/23 09:56 Aspirin 81 Mg Enteric Tablet PO 81 mg QAM SELMA Administration Atorvastatin Calcium 40 mg 11/16/23 21:00 11/24/23 20:59 Atorvastatin 40 Mg Tablet PO 40 mg HS SELMA Administration Dextrose 12.5 gm 11/16/23 15:46 11/23/23 07:58 Dextrose 50% 25 Gm/50 Ml Syringe IV PUSH 12.5 gm PRN PRN
[2023-11-25 16:18] LABS: Glucose Point of Care 112 mg/dl (65-105)
[2023-11-25 18:28] LABS: Cholesterol 56 mg/dL (0-200); HDL Direct 29 mg/dL; Triglycerides 65 mg/dL (<150)
[2023-11-25 19:33] LABS: Folic Acid 5.8 ng/mL (2.76->20)
[2023-11-25 19:55] LABS: Vitamin D 25 Hydroxy 64.8 ng/mL
[2023-11-25 20:09] LABS: Glucose Point of Care 138 mg/dl (65-105)
[2023-11-25 20:22] VITALS: BP 106/72; PULSE 76; RESP 18; TEMP 36.3; O2SAT 98
[2023-11-25] MEDS: traZODone HCL 50 MG TABLET PO (20:32)
[2023-11-25] MEDS: ATORVASTATIN 40 MG TABLET PO (20:33)
[2023-11-25 20:39] LABS: LDL Cholesterol Direct < 30 mg/dL
[2023-11-25] MEDS: hydrOXYzine pamoate 25 MG CAPSULE 50 MG PO (20:46)
[2023-11-26] VITALS (22 sets, daily range): BP systolic 90–187; BP diastolic 25–101; PULSE 63–89; RESP 12–20; TEMP 36.1–37; O2SAT 97–100
[2023-11-26 03:54] LABS: Hepatitis B Core Ab Total NON-REACTIVE (NON-REACTIVE)
[2023-11-26 07:24] LABS: Hematocrit 26.6 % (37.0-47.0); Hemoglobin 7.9 g/dL (12.0-15.0); Mean Corpuscular HGB Conc 29.7 g/dl (32-36); Mean Corpuscular Hemoglobin 24.5 pg (26-34); Mean Corpuscular Volume 82.6 fl (80-100); Mean Platelet Volume 10.6 fl (7.4-10.4); Platelet Count Result 165 k/mm3 (150-375); Red Blood Count 3.22 M/mm3 (4.2-5.4); Red Cell Distribution Width 20.4 % (11.5-14.5); White Blood Count 6.7 K/mm3 (4.5-10.0)
[2023-11-26 07:37] LABS: Alanine Aminotransferase 9 U/L (6-35); Albumin Level 3.3 g/dL (3.5-5.1); Alkaline Phosphatase 116 U/L (38-126); Anion Gap 14 mmol/L (4-12); Aspartate Amino Transferase 16 U/L (14-36); Bilirubin,Total 0.8 mg/dL (0.2-1.3); Blood Urea Nitrogen 61 mg/dL (7-17); Calcium 8.4 mg/dL (8.4-10.2); Carbon Dioxide 15 mmol/L (22-30); Chloride 101 mmol/L (98-107); Estimated CRCL calculation 15 ml/min; Estimated Glomerular Filt Rate 9; Glucose 105 mg/dL (65-110); Potassium 5.1 mmol/L (3.4-5.0); Sodium 130 mmol/L (137-145)
[2023-11-26 07:56] LABS: Glucose Point of Care 99 mg/dl (65-105)
--- NOTE | 2023-11-26 08:51 | PCPTNOTE ---
Patient refused treatment stating she did not sleep well last night and can not do therapy at this time. Patient voices understanding of needing to participate but continues to refuse. Patient states I promise I will try later.
[2023-11-26 11:22] LABS: Glucose Point of Care 98 mg/dl (65-105)
--- NOTE | 2023-11-26 13:33 | PCCDE ---
11/26/23 11:30 am 11/22 07:54: POC: 50 Attended Multidisciplinary Mtg. In view of recent hypoglycemia: Rec Reduce Lantus by 20% = 8 U. Monitor glucose for potential continued insulin adjustment needs. FJ
--- NOTE | 2023-11-26 14:25 | PC.NURSE ---
Addendum entered by Olya Anderson RN 11/26/23 17:43: to OR per bed, IV right AC, report given to August RN. Original Note: To OR per [ ], IV [ ]. Report given to [ ].
--- NOTE | 2023-11-26 14:33 | WPDHPUPDATE1 ---
History and Physical Update Update Date/Time: 11/26/23 14:33 History and Physical has been reviewed, including an updated exam of the patient. There are NO changes in the patient's condition. Risks, benefits, and alternatives have been discussed and questions answered. Patient agrees to proceed with procedure.
[2023-11-26] MEDS: SODIUM CHLORIDE 0.9% IV 500 ML 30 ML IV CONT (14:35)
--- NOTE | 2023-11-26 14:36 | WPDANESEPPF ---
Anes - Initial Pre Proc Eval Procedure: Operation Date: 11/26/23 14:00 Proposed Procedures p Insertion Tunneled Dialysis Catheter - Julius Alegre MD Date/Time: 11/26/23 14:36 Surgeon: Denise Lisa MD Pre Op Diagnosis: Anasarca/Fluid Overload/CKD/Hyperk Patient Data Age: 68 Gender: F Height: 1.78 m Weight: 129.1 kg Last Vital Signs Temp 36.4 C 11/26/23 06:00 Pulse 87 11/26/23 06:00 Resp 20 11/26/23 06:00 BP 122/82 11/26/23 06:00 Pulse Ox 99 11/26/23 06:00 O2 Del Method Room Air 11/25/23 08:00 Allergies Allergy/AdvReac Type Severity Reaction Status Date / Time semaglutide [From Ozempic] AdvReac Unknown Verified 11/19/23 09:49 Home Medications Medication Instructions Recorded Confirmed Type famotidine 40 mg tablet 40 mg PO DAILY #90 tabs 09/06/19 11/16/23 Rx apixaban 5 mg tablet (Eliquis) 5 mg PO BID 09/21/21 11/19/23 History insulin degludec 100 unit/mL (3 28 unit subcut HS 09/22/21 11/16/23 History mL) subcutaneous pen (Tresiba FlexTouch U-100 insulin) amlodipine 2.5 mg tablet 2.5 mg PO QAM 1 month #30 tabs 10/21/21 11/16/23 Rx atorvastatin 40 mg tablet 40 mg PO HS 12/09/21 11/16/23 History cholecalciferol (vitamin D3) 50 1,250 mcg PO WEEKLY 12/09/21 11/16/23 History mcg (2,000 unit) tablet lisinopril 40 mg tablet 40 mg PO QAM 12/09/21 11/16/23 History hydroxyzine pamoate 50 mg capsule 50 mg PO TID PRN Anxiety 03/30/22 11/16/23 History levothyroxine 125 mcg tablet 137 mcg PO DAILY 04/17/22 11/16/23 History insulin pen,reusable,BT,lispro 12/14/22 11/16/23 History (InPen (for Humalog) Blue subcutaneous) acetaminophen 500 mg tablet 1,000 mg PO Q6H PRN Pain (Scale 10/11/23 11/16/23 History (Acetaminophen Extra Strength) Score 4-6) bumetanide 2 mg tablet 1 mg PO DAILY 10/11/23 11/16/23 History insulin lispro 100 unit/mL 10 unit subcut TIDWMEAL 10/11/23 11/16/23 History subcutaneous pen (Humalog KwikPen (U-100) Insulin) iron,carbonyl 30 mg-vitamin C 10 1 tablet PO BID 10/11/23 11/16/23 History mg-FOS 25 mg chewable tablet trazodone 50 mg tablet 50 mg PO HS 10/11/23 11/16/23 History Laboratory Tests 11/25/23 11/25/23 11/25/23 06:07 16:14 18:00 WBC RBC Hgb Hct MCV MCH MCHC RDW Plt Count MPV Sodium Potassium Chloride Carbon Dioxide Anion Gap BUN Creatinine Estim Creat Clear Calc Estimated GFR Glucose POC Capillary Glucose 112 H mg/dl (65-105) Calcium Total Bilirubin AST ALT Alkaline Phosphatase Total Protein Albumin Triglycerides 65 mg/dL (<150) Cholesterol 56 mg/dL (0-200) LDL Cholesterol Direct < 30 mg/dL HDL Direct 29 mg/dL Vitamin B12 736.0 pg/mL (239-931) Vitamin D 25-Hydroxy 64.8 ng/mL Folate 5.8 ng/mL (2.76->20) Homocysteine Pending TSH 15.200 H uIU/mL (0.465-4.680) Hep B Core Total Ab Non-reactive (NON-REACTIVE) 11/25/23 11/26/23 11/26/23 19:50 07:09 07:53 WBC 6.7 K/mm3 (4.5-10.0) RBC 3.22 L M/mm3 (4.2-5.4) Hgb 7.9 L g/dL (12.0-15.0) Hct 26.6 L % (37.0-47.0) MCV 82.6 fl (80-100) MCH 24.5 L pg (26-34) MCHC 29.7 L g/dl (32-36) RDW 20.4 H % (11.5-14.5) Plt Count 165 k/mm3 (150-375) MPV 10.6 H fl (7.4-10.4) Sodium 130 L mmol/L (137-145) Potassium 5.1 H mmol/L (3.4-5.0) Chloride 101 mmol/L (98-107) Carbon Dioxide 15 L mmol/L (22-30) Anion Gap 14 H mmol/L (4-12) BUN 61 H mg/dL (7-17)
[2023-11-26] MEDS: HEPARIN SODIUM 5,000 UNITS/ML VIAL 5000 UNITS IRRIGATION (14:46)
[2023-11-26] MEDS: HEPARIN SODIUM 1,000 UNITS/ML VIAL 1000 UNITS IV PUSH (14:46)
[2023-11-26] MEDS: ceFAZolin SODIUM 1 GM VIAL IV PUSH (14:46)
[2023-11-26] MEDS: ceFAZolin 2 GM/D5W 50 ML 2 GM/50 ML BAG IVPB (14:46)
[2023-11-26] MEDS: LIDO 1%/EPINEPHRINE 1:100,000 50 ML VIAL 30 ML INFILTRATE (14:46)
[2023-11-26] MEDS: BUPivacaine HCL 0.5% 10 ML AMP 30 ML INFILTRATE (14:48)
--- NOTE | 2023-11-26 15:47 | W.PM.PROC2 ---
Procedure Note - Detailed Date of Procedure 11/26/23 Pre-op Diagnosis Anasarca/Fluid Overload/CKD/Hyperk Post-op Diagnosis Same Procedure Performed Placement of right subclavian vein tunneled hemodialysis catheter with intraoperative fluoroscopy Surgeon Julius Alegre MD Anesthesia MAC and Local Indications Patient is a 68-year-old female who has gradually had worsening renal dysfunction and most recently was admitted to the hospital with volume overload and hyperkalemia. She was seen by Nephrology and a kidney biopsy was performed. This showed extensive chronic disease which most likely was not reversible. Service Inspector felt that patient would most likely be dialysis dependent in the future. I was asked to place a tunneled hemodialysis catheter. Findings None significant Description of Procedure After informed consent was obtained patient brought to the operating room she was placed supine position and IV sedation was administered by anesthesia. The bilateral anterior neck and chest was then prepped draped usual sterile fashion. A time-out was then performed correctly identifying the patient as as well as the procedure to be performed. She was given 3g of Ancef for perioperative IV antibiotics. The patient then placed in the head-down Trendelenburg position an approach placement of the hemodialysis catheter in the right subclavian vein. 1% lidocaine mixed with 0.5% Marcaine was injected underneath the medial 3rd of the right clavicle. A long 18gauge needle was then used to percutaneously cannulate the right subclavian vein on the 1st pass. There was prompt return of dark venous appearing blood. A guidewire was advanced through the needle into the right subclavian vein subsequent down into the right atrium of the heart. Intraoperative fluoroscopy was used to verify the proper position of the tip of the guidewire. I then chose a Duraflow tunneled hemodialysis catheter measuring 19cm from the cuff to the tip and 24cm in overall length. I then anesthetized the proposed subcutaneous tunnel with the same local anesthetic mixture. I also incised and enlarged the insertion site of the guidewire with a scalpel. I then made a small stab incision on the right anterior chest and tunneled the catheter between the insertion site of the catheter up to the insertion site of the guidewire. The tunneler was then removed and I confirmed that the cuff of the catheter was located in the subcutaneous tissues just below the midportion of the right clavicle. I then advanced serial dilators over the guidewire to enlarge to be not a me. Lastly the large sheath and dilator were advanced over the guidewire. The dilator and guidewire removed leaving the sheath in place. The catheter was advanced through the sheath into the right subclavian down into the superior vena cava. Intraoperative fluoroscopy was then obtained and the images showed the tip of the catheter was in the the distal superior vena cava. I then accessed both ports of the catheter and they both aspirated blood very easily and then flushed with heparinized saline solution with good easy high flows. I then secured the catheter to the skin utilizing 3-0 nylon suture. I then closed the small incision underneath the clavicle with a 4-0 Monocryl suture in a subcuticular fashion both ports of the catheter were once more aspirated then there were flushed with a total of 2500units of heparin in each port. There is then cleaned and then skin glue was applied to the small incision. Sterile dressing was placed on top of the exit site of the catheter. The patient tolerated the procedure well no complications. All sponges, needles, and instrument counts were correct at the end procedure. EBL was _25__cc. The patient was awakened and taken to recovery in stable and satisfactory condition. Post Procedure chest x-ray was obtained my review there is no evidence of iatrogenic right pneumothorax and the tip of the radha
[2023-11-26 16:09] LABS: Glucose Point of Care 104 mg/dl (65-105)
[2023-11-26] MEDS: EPOETIN ALFA-EPBX 10,000 UNITS/ML VIAL 10000 UNITS IV PUSH (17:41)
--- NOTE | 2023-11-26 17:56 | P.PNNP_ITS ---
Progress Note: A&P Assessment and Plan (1) SHREYA (acute kidney injury): Code(s): N17.9 - Acute kidney failure, unspecified Status: Chronic Assessment and Plan: * marked decline in kidney function noted (see #2) * started worsening in late 2022 with creatinine up to 1.7 - 2.2mg/dl * however, during hospitalization (at [facility]) in July 2023, creatinine improved back to 1.4 - 1.5mg/dl * then, in June 2023, jumped up to 2.7mg/dl * admission creatinine up to 2.8mg/dl * now complicated by anasarca/volume overload, diminished urine output despite high dose diuretic therapy, metabolic acidosis, and hyperkalemia * creatinine now up to 4.9mg/dl * RENAL BIOPSY done (11/24/23): * class III advanced nodular diabetic glomerulosclerosis * ~ 60% interstitial fibrosis and tubular atrophy * given lack of improvement in renal function despite aggressive therapy, initiated on renal replacement therapy/dialysis * I suppose dialysis could be temporary but given her advanced disease as noted by renal biopsy, it is possible she may be dialysis dependent * HD today * plan HD tomorrow * follow electrolytes, volume status, and clearance (2) Stage 3b chronic kidney disease: Code(s): N18.32 - Chronic kidney disease, stage 3b Status: Chronic Assessment and Plan: * due to biopsy proven diabetic nephropathy/nephrosclerosis (biopsy done in November 2021) in conjunction with vascular disease * evidence of chronic kidney disease that dates back as far as 2017 * had been running 1.1 - 1.6mg/dl for the last few years but is known to have worsened to the 2ish range with her hospitalization/acute infections * recent rise in creatinine noted in September 2023 (see #1) and during this hospitalization (3) Anasarca: Code(s): R60.1 - Generalized edema Status: Acute Assessment and Plan: * as noted by physical exam and imaging studies * BNP elevated as well * Echo results noted * IV diuretics with only limited response * fluid removal/ultrafiltration with dialysis * follow I/Os and daily weights (4) Chronic anemia: Code(s): D64.9 - Anemia, unspecified Status: Chronic Assessment and Plan: * suspect related to CKD * evidence of iron deficiency noted by anemia studies as well * Hemoccult positive stools noted * s/p EGD and colonoscopy - no active bleeding lesions * PRBC transfusion per protocol * follow trend of H/H * on TRACY and s/p IV venofer (5) Ulcer of lower extremity: Qualifiers: Laterality: left Non-pressure ulcer stage: limited to breakdown of skin Qualified Code(s): L97.921 - Non-pressure chronic ulcer of unspecified part of left lower leg limited to breakdown of skin Code(s): L97.909 - Non-pressure chronic ulcer of unspecified part of unspecified lower leg with unspecified severity Status: Acute Assessment and Plan: * complicated by possible cellulitis(?) * follow culture data - negative to date * completed course of antibiotics (6) Receptive aphasia: Code(s): R47.01 - Aphasia Status: Acute Assessment and Plan: * noted following EGD/colonoscopy * imaging to date noted * Neurology following * element of uremia(?) * follow mentation (7) Hypertension: Code(s): I10 - Essential (primary) hypertension Status: Chronic Assessment and Plan: * despite history, well controlled * off lisinopril given #1; can resume once dialysis started if needed * follow trend of hemodynamics (8) T
--- NOTE | 2023-11-26 17:56 | PM.PNNEP ---
Progress Note: A&P Assessment and Plan (1) SHREYA (acute kidney injury): Code(s): N17.9 - Acute kidney failure, unspecified Status: Chronic Assessment and Plan: marked decline in kidney function noted (see #2) started worsening in late 2022 with creatinine up to 1.7 - 2.2mg/dl however, during hospitalization (at [facility]) in July 2023, creatinine improved back to 1.4 - 1.5mg/dl then, in June 2023, jumped up to 2.7mg/dl admission creatinine up to 2.8mg/dl now complicated by anasarca/volume overload, diminished urine output despite high dose diuretic therapy, metabolic acidosis, and hyperkalemia creatinine now up to 4.9mg/dl RENAL BIOPSY done (11/24/23): class III advanced nodular diabetic glomerulosclerosis ~ 60% interstitial fibrosis and tubular atrophy given lack of improvement in renal function despite aggressive therapy, initiated on renal replacement therapy/dialysis I suppose dialysis could be temporary but given her advanced disease as noted by renal biopsy, it is possible she may be dialysis dependent HD today plan HD tomorrow follow electrolytes, volume status, and clearance (2) Stage 3b chronic kidney disease: Code(s): N18.32 - Chronic kidney disease, stage 3b Status: Chronic Assessment and Plan: due to biopsy proven diabetic nephropathy/nephrosclerosis (biopsy done in November 2021) in conjunction with vascular disease evidence of chronic kidney disease that dates back as far as 2017 had been running 1.1 - 1.6mg/dl for the last few years but is known to have worsened to the 2ish range with her hospitalization/acute infections recent rise in creatinine noted in September 2023 (see #1) and during this hospitalization (3) Anasarca: Code(s): R60.1 - Generalized edema Status: Acute Assessment and Plan: as noted by physical exam and imaging studies BNP elevated as well Echo results noted IV diuretics with only limited response fluid removal/ultrafiltration with dialysis follow I/Os and daily weights (4) Chronic anemia: Code(s): D64.9 - Anemia, unspecified Status: Chronic Assessment and Plan: suspect related to CKD evidence of iron deficiency noted by anemia studies as well Hemoccult positive stools noted s/p EGD and colonoscopy - no active bleeding lesions PRBC transfusion per protocol follow trend of H/H on TRACY and s/p IV venofer (5) Ulcer of lower extremity: Qualifiers: Laterality: left Non-pressure ulcer stage: limited to breakdown of skin Qualified Code(s): L97.921 - Non-pressure chronic ulcer of unspecified part of left lower leg limited to breakdown of skin Code(s): L97.909 - Non-pressure chronic ulcer of unspecified part of unspecified lower leg with unspecified severity Status: Acute Assessment and Plan: complicated by possible cellulitis(?) follow culture data - negative to date completed course of antibiotics (6) Receptive aphasia: Code(s): R47.01 - Aphasia Status: Acute Assessment and Plan: noted following EGD/colonoscopy imaging to date noted Neurology following element of uremia(?) follow mentation (7) Hypertension: Code(s): I10 - Essential (primary) hypertension Status: Chronic Assessment and Plan: despite history, well controlled off lisinopril given #1; can resume once dialysis started if needed follow trend of hemodynamics (8) Type 2 diabetes mellitus, uncontrolled, with renal complications: Status: Chronic Assessment and Plan: follow accu-cheks glycemic control per hospitalists Will continue to follow Subjective Date/time seen: 11/26/23 17:56 Interval history: Follow-up for acute kidney injury/acute renal failure on chronic kidney disease. S/P tunneled HD catheter placement earlier this afternoon; tolerating first dialysis treatment at the time of my visit
[2023-11-26] MEDS: HEPARIN SODIUM 1,000 UNITS/ML VIAL 5000 UNITS (20:30)
[2023-11-26 20:43] LABS: Glucose Point of Care 97 mg/dl (65-105)
[2023-11-26] MEDS: ATORVASTATIN 40 MG TABLET PO (21:19)
[2023-11-26] MEDS: TOLNAFTATE 1% POWDER 45 GM BTL 1 APPLIC TOPICAL (21:19)
[2023-11-26] MEDS: APIXABAN 5 MG TABLET PO (21:19)
[2023-11-26] MEDS: traZODone HCL 50 MG TABLET PO (21:19)
[2023-11-26] MEDS: INSULIN GLARGINE (*BKC) 100 UNITS/ML 8 UNITS SUB-Q (21:20)
[2023-11-27] VITALS (20 sets, daily range): BP systolic 102–132; BP diastolic 48–70; PULSE 71–91; RESP 12–22; TEMP 36.3–37.6; O2SAT 95–98
[2023-11-27] MEDS: LEVOTHYROXINE SODIUM 25 MCG TABLET PO (05:25)
[2023-11-27] MEDS: LEVOTHYROXINE SODIUM 112 MCG TABLET PO (05:25)
[2023-11-27] MEDS: SODIUM CHLORIDE 0.9% IV 1,000 ML 999 ML IV CONT (06:30)
[2023-11-27 07:07] LABS: Hematocrit 26.2 % (37.0-47.0); Hemoglobin 7.9 g/dL (12.0-15.0); Mean Corpuscular HGB Conc 30.2 g/dl (32-36); Mean Corpuscular Hemoglobin 24.7 pg (26-34); Mean Corpuscular Volume 81.9 fl (80-100); Mean Platelet Volume 10.6 fl (7.4-10.4); Platelet Count Result 166 k/mm3 (150-375); Red Cell Distribution Width 20.4 % (11.5-14.5); White Blood Count 5.3 K/mm3 (4.5-10.0)
[2023-11-27 07:15] LABS: Alanine Aminotransferase 8 U/L (6-35); Alkaline Phosphatase 112 U/L (38-126); Anion Gap 12 mmol/L (4-12); Aspartate Amino Transferase 17 U/L (14-36); Bilirubin,Total 0.8 mg/dL (0.2-1.3); Blood Urea Nitrogen 45 mg/dL (7-17); Calcium 8.2 mg/dL (8.4-10.2); Carbon Dioxide 20 mmol/L (22-30); Chloride 101 mmol/L (98-107); Estimated CRCL calculation 20 ml/min; Estimated Glomerular Filt Rate 12; Glucose 70 mg/dL (65-110); Potassium 4.2 mmol/L (3.4-5.0); Sodium 133 mmol/L (137-145)
[2023-11-27] MEDS: EPOETIN ALFA-EPBX 10,000 UNITS/ML VIAL 10000 UNITS IV PUSH (09:42)
[2023-11-27 11:48] LABS: Glucose Point of Care 73 mg/dl (65-105)
--- NOTE | 2023-11-27 12:38 | WPDANESPN ---
Anes - Prog Note Post-Op Date/Time: 11/27/23 12:38 Cardiovascular status: normal Respiratory status: normal Airway patency: baseline Mental status: baseline Post-Op hydration status: normal Vital Signs: Last Vital Signs Temp 98.7 F 11/27/23 10:30 Pulse 81 11/27/23 10:30 Resp 16 11/27/23 10:30 BP 120/64 11/27/23 10:30 Pulse Ox 98 11/27/23 10:30 O2 Del Method Room Air 11/27/23 08:00 O2 Flow Rate 6 11/26/23 15:40 Pain Score (VAS): 0 I/O: Intake & Output 11/26/23 11/27/23 11/27/23 23:59 07:59 15:59 Intake Total 0 0 Output Total 1409 1999 Balance -1408 Laboratory Tests 11/27/23 06:16 11/27/23 06:16 11/26/23 11/26/23 11/27/23 16:06 20:41 06:16 WBC 5.3 RBC 3.20 L Hgb 7.9 L Hct 26.2 L MCV 81.9 MCH 24.7 L MCHC 30.2 L RDW 20.4 H Plt Count 166 MPV 10.6 H Sodium 133 L Potassium 4.2 Chloride 101 Carbon Dioxide 20 L Anion Gap 12 BUN 45 H D Creatinine 3.80 H Estim Creat Clear Calc 20 Estimated GFR 12 L Glucose 70 POC Capillary Glucose 104 97 Calcium 8.2 L Total Bilirubin 0.8 AST 17 ALT 8 Alkaline Phosphatase 112 Total Protein 6.0 L Albumin 3.0 L 11/27/23 11:45 WBC RBC Hgb Hct MCV MCH MCHC RDW Plt Count MPV Sodium Potassium Chloride Carbon Dioxide Anion Gap BUN Creatinine Estim Creat Clear Calc Estimated GFR Glucose POC Capillary Glucose 73 Calcium Total Bilirubin AST ALT Alkaline Phosphatase Total Protein Albumin Patient Feedback: Patient satisfied with anesthetic care.
--- NOTE | 2023-11-27 13:31 | P.PNNP_ITS ---
Progress Note: A&P Assessment and Plan (1) SHREYA (acute kidney injury): Code(s): N17.9 - Acute kidney failure, unspecified Status: Chronic Assessment and Plan: * marked decline in kidney function noted (see #2) * started worsening in late 2022 with creatinine up to 1.7 - 2.2mg/dl * however, during hospitalization (at [facility]) in July 2023, creatinine improved back to 1.4 - 1.5mg/dl * then, in June 2023, jumped up to 2.7mg/dl * admission creatinine up to 2.8mg/dl * now complicated by anasarca/volume overload, diminished urine output despite high dose diuretic therapy, metabolic acidosis, and hyperkalemia * creatinine now up to 4.9mg/dl * RENAL BIOPSY done (11/24/23): * class III advanced nodular diabetic glomerulosclerosis * ~ 60% interstitial fibrosis and tubular atrophy * Now getting dialysis. * She is getting set up for outpatient dialysis as well * She had some fluid removed today. We will other treatment on Wednesday (2) Stage 3b chronic kidney disease: Code(s): N18.32 - Chronic kidney disease, stage 3b Status: Chronic Assessment and Plan: * due to biopsy proven diabetic nephropathy/nephrosclerosis (biopsy done in November 2021) in conjunction with vascular disease * evidence of chronic kidney disease that dates back as far as 2017 * had been running 1.1 - 1.6mg/dl for the last few years but is known to have worsened to the 2ish range with her hospitalization/acute infections * Now on dialysis (3) Anasarca: Code(s): R60.1 - Generalized edema Status: Acute Assessment and Plan: * as noted by physical exam and imaging studies * BNP elevated as well * Echo results preliminarily shows a PFO * Does she need a cardiac consult? Oneal? * Gradual improvement with fluid removal (4) Chronic anemia: Code(s): D64.9 - Anemia, unspecified Status: Chronic Assessment and Plan: * suspect related to CKD * evidence of iron deficiency noted by anemia studies as well * Hemoccult positive stools noted * s/p EGD and colonoscopy - no active bleeding lesions * PRBC transfusion per protocol * Hemoglobin is stable around a * on TRACY and s/p IV venofer (5) Ulcer of lower extremity: Qualifiers: Laterality: left Non-pressure ulcer stage: limited to breakdown of skin Qualified Code(s): L97.921 - Non-pressure chronic ulcer of unspecified part of left lower leg limited to breakdown of skin Code(s): L97.909 - Non-pressure chronic ulcer of unspecified part of unspecified lower leg with unspecified severity Status: Acute Assessment and Plan: * complicated by possible cellulitis(?) * follow culture data - negative to date * completed course of antibiotics (6) Receptive aphasia: Code(s): R47.01 - Aphasia Status: Acute Assessment and Plan: * noted following EGD/colonoscopy * imaging to date noted * Neurology following * Speech seems good right now (7) Hypertension: Code(s): I10 - Essential (primary) hypertension Status: Chronic Assessment and Plan: * Systolic ranging from 119-132. * off lisinopril given #1; can resume once dialysis started if needed (8) Type 2 diabetes mellitus, uncontrolled, with renal complications: Status: Chronic Assessment and Plan: * follow accu-cheks * glycemic control per hospitalists Subjective Date/time seen: 11/27/23 13:31 Interval history: Patient feels okay today. She had dialysis jean kraus
--- NOTE | 2023-11-27 13:31 | PM.PNNEP ---
Progress Note: A&P Assessment and Plan (1) SHREYA (acute kidney injury): Code(s): N17.9 - Acute kidney failure, unspecified Status: Chronic Assessment and Plan: marked decline in kidney function noted (see #2) started worsening in late 2022 with creatinine up to 1.7 - 2.2mg/dl however, during hospitalization (at [facility]) in July 2023, creatinine improved back to 1.4 - 1.5mg/dl then, in June 2023, jumped up to 2.7mg/dl admission creatinine up to 2.8mg/dl now complicated by anasarca/volume overload, diminished urine output despite high dose diuretic therapy, metabolic acidosis, and hyperkalemia creatinine now up to 4.9mg/dl RENAL BIOPSY done (11/24/23): class III advanced nodular diabetic glomerulosclerosis ~ 60% interstitial fibrosis and tubular atrophy Now getting dialysis. She is getting set up for outpatient dialysis as well She had some fluid removed today. We will other treatment on Wednesday (2) Stage 3b chronic kidney disease: Code(s): N18.32 - Chronic kidney disease, stage 3b Status: Chronic Assessment and Plan: due to biopsy proven diabetic nephropathy/nephrosclerosis (biopsy done in November 2021) in conjunction with vascular disease evidence of chronic kidney disease that dates back as far as 2017 had been running 1.1 - 1.6mg/dl for the last few years but is known to have worsened to the 2ish range with her hospitalization/acute infections Now on dialysis (3) Anasarca: Code(s): R60.1 - Generalized edema Status: Acute Assessment and Plan: as noted by physical exam and imaging studies BNP elevated as well Echo results preliminarily shows a PFO Does she need a cardiac consult? Oneal? Gradual improvement with fluid removal (4) Chronic anemia: Code(s): D64.9 - Anemia, unspecified Status: Chronic Assessment and Plan: suspect related to CKD evidence of iron deficiency noted by anemia studies as well Hemoccult positive stools noted s/p EGD and colonoscopy - no active bleeding lesions PRBC transfusion per protocol Hemoglobin is stable around a on TRACY and s/p IV venofer (5) Ulcer of lower extremity: Qualifiers: Laterality: left Non-pressure ulcer stage: limited to breakdown of skin Qualified Code(s): L97.921 - Non-pressure chronic ulcer of unspecified part of left lower leg limited to breakdown of skin Code(s): L97.909 - Non-pressure chronic ulcer of unspecified part of unspecified lower leg with unspecified severity Status: Acute Assessment and Plan: complicated by possible cellulitis(?) follow culture data - negative to date completed course of antibiotics (6) Receptive aphasia: Code(s): R47.01 - Aphasia Status: Acute Assessment and Plan: noted following EGD/colonoscopy imaging to date noted Neurology following Speech seems good right now (7) Hypertension: Code(s): I10 - Essential (primary) hypertension Status: Chronic Assessment and Plan: Systolic ranging from 119-132. off lisinopril given #1; can resume once dialysis started if needed (8) Type 2 diabetes mellitus, uncontrolled, with renal complications: Status: Chronic Assessment and Plan: follow accu-cheks glycemic control per hospitalists Subjective Date/time seen: 11/27/23 13:31 Interval history: Patient feels okay today. She had dialysis this morning. Still has some swelling. Exam Narrative: General: WD/WN female in NAD Heart: normal S1 and S2; no rub or gallop Lungs: clear anteriorly; decreased at bases Abdomen: soft, nontender, nondistended, positive bowel sounds Extremities: no cyanosis or clubbing; 2 - 3+ bilateral edema Skin: mild erythema in LLE apparent Objective Data Vital Signs Vital Signs: Vital Signs - 24 hr 11/26/23 14:47 11/26/23 15:40 11/26/23 16:25 Temperature 96.9 F L 97
--- NOTE | 2023-11-27 14:41 | PM.IMPN ---
Progress Note: A&P Assessment and Plan (1) Diarrhea: Qualifiers: Diarrhea type: presumed infectious Qualified Code(s): R19.7 - Diarrhea, unspecified Code(s): R19.7 - Diarrhea, unspecified Status: Acute Assessment and Plan: - CT abd/pelvis: Moderate bilateral pleural effusions. Moderate abdominopelvic ascites. Cholelithiasis. Diffuse soft tissue anasarca. - C. diff negative - stool culture pending diarrhea resolved (2) Thigh shingles: Code(s): B02.9 - Zoster without complications Status: Suspected Assessment and Plan: - patch to proximal/anterior left thigh that started as small vesicles. Vesicles have since ruptured, area is erythematous/open without crusting. Isolation precautions ordered - started on Valtrex x 7days, ends 11/23/23 (3) Ulcer of lower extremity: Qualifiers: Laterality: left Non-pressure ulcer stage: limited to breakdown of skin Qualified Code(s): L97.921 - Non-pressure chronic ulcer of unspecified part of left lower leg limited to breakdown of skin Code(s): L97.909 - Non-pressure chronic ulcer of unspecified part of unspecified lower leg with unspecified severity Status: Acute Assessment and Plan: - ADELA ordered of LLE - low suspicion for DVT given patient is on Eliquis - wound consulted - will add ANNETTE, previously negative in 2020 - DDx: high suspicion for peripheral artery disease, cannot exclude SLE or bullous pemphigoid. S/p Vanc and Zosyn Now on Doxy and Augmentin x 10 days monitor (4) Anasarca: Code(s): R60.1 - Generalized edema Status: Acute Assessment and Plan: - BNP elevated, echo ordered (no previous on file) - on hold Bumex 2 mg PO daily - TSH elevated with low t4 continue home levothyroxine F/u TSH studies outpatient and adjustment then - albumin WNL (5) Swelling of vagina: Code(s): N89.9 - Noninflammatory disorder of vagina, unspecified Status: Acute Assessment and Plan: - anasarca vs yeast infection vs combination thereof - Diflucan 150 mg PO x1 - tolnaftate powder (6) Chronic diastolic (congestive) heart failure: Code(s): I50.32 - Chronic diastolic (congestive) heart failure Status: Chronic Assessment and Plan: - BNP 20,300 - Echo 11/15 :Left ventricular systolic function is mildly reduced, estimated at 45-50% - On hold Bumex 1mg bid - daily weights - monitor I&Os - trend renal function -nephrology following (7) Stage 3b chronic kidney disease: Code(s): N18.32 - Chronic kidney disease, stage 3b Status: Chronic Assessment and Plan: - nephrology consulted - trend renal function - trend electrolytes, correct as needed nephrology following -s/p dialysis catheter -dialysis performed on 11/25 and 11/26 -pending outpatient dialysis (8) Chronic anemia: Code(s): D64.9 - Anemia, unspecified Status: Chronic Assessment and Plan: -11/22 : 7.5<8.5 - hemoglobin 6.9, isat 7 and - isat 7 and FOBT positive - s/p 1 unit pRBC Hb 7.6 today S/p 1000/1000 mg of IV iron, no more iron supplements stop Protonix Upper and lower Endoscopy no remarkable findings Appreciate GI input (9) Type 2 diabetes mellitus, uncontrolled, with renal complications: Status: Chronic Assessment and Plan: - hypoglycemia protocol - POC blood glucose ACHS - home medication: lispro 10 units t.i.d. with meals, Tresiba 28 units HS - correct regimen ordered Decreased lantus to 8 units daily, and SSI. monitor blood sugar one more day for final insulin regimen adjustment - A1C 9.5% on 10/11/2023 (10) Aphasia: Code(s): R47.01 - Aphasia Status: Acute Assessment and Plan: receptive aphasia vs memory deficit Dementia vs Stroke ECHO showed EF 45-50% with PASP 55mmHg awaiting MRI brain PT/OT/ST consulted neurology consulted awaiting eval Plan D
[2023-11-27] MEDS: APIXABAN 5 MG TABLET PO ×2 (15:17→21:00)
[2023-11-27] MEDS: ASCORBIC ACID 125 MG TABLET PO (15:18)
[2023-11-27] MEDS: HEPARIN SODIUM 1,000 UNITS/ML VIAL 4000 UNITS (15:19)
[2023-11-27] MEDS: ASPIRIN 81 MG ENTERIC TABLET PO (15:19)
[2023-11-27] MEDS: TOLNAFTATE 1% POWDER 45 GM BTL 1 APPLIC TOPICAL ×2 (15:19→20:59)
[2023-11-27] MEDS: BUMETANIDE 1 MG TABLET 2 MG PO (15:19)
[2023-11-27] MEDS: FAMOTIDINE 20 MG TABLET 40 MG PO (15:19)
[2023-11-27] MEDS: PANTOPRAZOLE 40 MG TABLET PO (15:19)
[2023-11-27 16:44] LABS: Glucose Point of Care 113 mg/dl (65-105)
[2023-11-27 20:24] LABS: Glucose Point of Care 145 mg/dl (65-105)
[2023-11-27] MEDS: INSULIN GLARGINE (*BKC) 100 UNITS/ML 8 UNITS SUB-Q (20:59)
[2023-11-27] MEDS: traZODone HCL 50 MG TABLET PO (21:00)
[2023-11-27] MEDS: ATORVASTATIN 40 MG TABLET PO (21:00)
[2023-11-28] MEDS: ONDANSETRON INJ 4 MG/2 ML VIAL IV PUSH (01:45)
[2023-11-28 01:46] VITALS: BP 111/56; PULSE 66; RESP 18; TEMP 37.4; O2SAT 100
[2023-11-28 01:47] LABS: Glucose Point of Care 97 mg/dl (65-105)
[2023-11-28 04:00] VITALS: BP 96/58; PULSE 66; RESP 18; TEMP 36.2; O2SAT 97
[2023-11-28 05:43] LABS: Glucose Point of Care 89 mg/dl (65-105)
[2023-11-28] MEDS: LEVOTHYROXINE SODIUM 25 MCG TABLET PO (06:42)
[2023-11-28] MEDS: LEVOTHYROXINE SODIUM 112 MCG TABLET PO (06:42)
[2023-11-28 07:03] LABS: Albumin Level 2.6 g/dL (3.5-5.1); Anion Gap 8 mmol/L (4-12); Blood Urea Nitrogen 31 mg/dL (7-17); Calcium 7.5 mg/dL (8.4-10.2); Carbon Dioxide 23 mmol/L (22-30); Chloride 102 mmol/L (98-107); Estimated CRCL calculation 26 ml/min; Estimated Glomerular Filt Rate 17; Glucose 93 mg/dL (65-110); Phosphorus 3.8 mg/dL (2.5-4.5); Sodium 133 mmol/L (137-145)
[2023-11-28 07:24] LABS: Glucose Point of Care 91 mg/dl (65-105)
[2023-11-28 08:00] VITALS: BP 106/49; PULSE 79; RESP 18; TEMP 36.7; O2SAT 99
[2023-11-28] MEDS: FAMOTIDINE 20 MG TABLET 40 MG PO (08:59)
[2023-11-28] MEDS: ASPIRIN 81 MG ENTERIC TABLET PO (08:59)
[2023-11-28] MEDS: ASCORBIC ACID 125 MG TABLET PO (08:59)
[2023-11-28] MEDS: PANTOPRAZOLE 40 MG TABLET PO (08:59)
[2023-11-28] MEDS: APIXABAN 5 MG TABLET PO ×2 (08:59→20:52)
--- NOTE | 2023-11-28 09:57 | P.PNNP_ITS ---
Progress Note: A&P Assessment and Plan (1) SHREYA (acute kidney injury): Code(s): N17.9 - Acute kidney failure, unspecified Status: Chronic Assessment and Plan: * marked decline in kidney function noted (see #2) * started worsening in late 2022 with creatinine up to 1.7 - 2.2mg/dl * however, during hospitalization (at [facility]) in July 2023, creatinine improved back to 1.4 - 1.5mg/dl * then, in June 2023, jumped up to 2.7mg/dl * admission creatinine up to 2.8mg/dl * now complicated by anasarca/volume overload, diminished urine output despite high dose diuretic therapy, metabolic acidosis, and hyperkalemia * creatinine now up to 4.9mg/dl * RENAL BIOPSY done (11/24/23): * class III advanced nodular diabetic glomerulosclerosis * ~ 60% interstitial fibrosis and tubular atrophy * Now getting dialysis. * She is getting set up for outpatient dialysis as well * Will do another treatment tomorrow. (2) Anasarca: Code(s): R60.1 - Generalized edema Status: Acute Assessment and Plan: * as noted by physical exam and imaging studies * BNP elevated as well * Echo results preliminarily shows a PFO * Does she need a cardiac consult? Oneal? * Gradual improvement with fluid removal * Will try for more fluid removal tomorrow (3) Chronic anemia: Code(s): D64.9 - Anemia, unspecified Status: Chronic Assessment and Plan: * suspect related to CKD * evidence of iron deficiency noted by anemia studies as well * Hemoccult positive stools noted * s/p EGD and colonoscopy - no active bleeding lesions * Getting Epogen and received some iron as well. * Check a CBC tomorrow (4) Ulcer of lower extremity: Qualifiers: Laterality: left Non-pressure ulcer stage: limited to breakdown of skin Qualified Code(s): L97.921 - Non-pressure chronic ulcer of unspecified part of left lower leg limited to breakdown of skin Code(s): L97.909 - Non-pressure chronic ulcer of unspecified part of unspecified lower l eg with unspecified severity Status: Acute Assessment and Plan: * complicated by possible cellulitis(?) * follow culture data - negative to date * completed course of antibiotics (5) Receptive aphasia: Code(s): R47.01 - Aphasia Status: Acute Assessment and Plan: * noted following EGD/colonoscopy * imaging to date noted * Neurology following * Speech seems good right now (6) Hypertension: Code(s): I10 - Essential (primary) hypertension Status: Chronic Assessment and Plan: * Systolic ranging from 96-120 * Will stop amlodipine * off lisinopril given #1; can resume once dialysis started if needed as this would be a better choice over amlodipine if she needs something for blood pressure. However with us trying to take fluid off she may not need anything. (7) Type 2 diabetes mellitus, uncontrolled, with renal complications: Status: Chronic Assessment and Plan: * follow accu-cheks * glycemic control per hospitalists Subjective Date/time seen: 11/28/23 09:57 Interval history: Patient had breakfast and then threw up today. She is feeling better now. No shortness of breath Exam Narrative: General: WD/WN female in NAD Heart: normal S1 and S2; no rub or gallop Lungs: clear anteriorly; decreased at bases Abdomen: soft, nontender, nondistended, positive bowel sounds Extremities: no cyanosis or clubbing; 2 - 3+ bilateral edema Skin:
--- NOTE | 2023-11-28 09:57 | PM.PNNEP ---
Progress Note: A&P Assessment and Plan (1) SHREYA (acute kidney injury): Code(s): N17.9 - Acute kidney failure, unspecified Status: Chronic Assessment and Plan: marked decline in kidney function noted (see #2) started worsening in late 2022 with creatinine up to 1.7 - 2.2mg/dl however, during hospitalization (at [facility]) in July 2023, creatinine improved back to 1.4 - 1.5mg/dl then, in June 2023, jumped up to 2.7mg/dl admission creatinine up to 2.8mg/dl now complicated by anasarca/volume overload, diminished urine output despite high dose diuretic therapy, metabolic acidosis, and hyperkalemia creatinine now up to 4.9mg/dl RENAL BIOPSY done (11/24/23): class III advanced nodular diabetic glomerulosclerosis ~ 60% interstitial fibrosis and tubular atrophy Now getting dialysis. She is getting set up for outpatient dialysis as well Will do another treatment tomorrow. (2) Anasarca: Code(s): R60.1 - Generalized edema Status: Acute Assessment and Plan: as noted by physical exam and imaging studies BNP elevated as well Echo results preliminarily shows a PFO Does she need a cardiac consult? Oneal? Gradual improvement with fluid removal Will try for more fluid removal tomorrow (3) Chronic anemia: Code(s): D64.9 - Anemia, unspecified Status: Chronic Assessment and Plan: suspect related to CKD evidence of iron deficiency noted by anemia studies as well Hemoccult positive stools noted s/p EGD and colonoscopy - no active bleeding lesions Getting Epogen and received some iron as well. Check a CBC tomorrow (4) Ulcer of lower extremity: Qualifiers: Laterality: left Non-pressure ulcer stage: limited to breakdown of skin Qualified Code(s): L97.921 - Non-pressure chronic ulcer of unspecified part of left lower leg limited to breakdown of skin Code(s): L97.909 - Non-pressure chronic ulcer of unspecified part of unspecified lower leg with unspecified severity Status: Acute Assessment and Plan: complicated by possible cellulitis(?) follow culture data - negative to date completed course of antibiotics (5) Receptive aphasia: Code(s): R47.01 - Aphasia Status: Acute Assessment and Plan: noted following EGD/colonoscopy imaging to date noted Neurology following Speech seems good right now (6) Hypertension: Code(s): I10 - Essential (primary) hypertension Status: Chronic Assessment and Plan: Systolic ranging from 96-120 Will stop amlodipine off lisinopril given #1; can resume once dialysis started if needed as this would be a better choice over amlodipine if she needs something for blood pressure. However with us trying to take fluid off she may not need anything. (7) Type 2 diabetes mellitus, uncontrolled, with renal complications: Status: Chronic Assessment and Plan: follow accu-cheks glycemic control per hospitalists Subjective Date/time seen: 11/28/23 09:57 Interval history: Patient had breakfast and then threw up today. She is feeling better now. No shortness of breath Exam Narrative: General: WD/WN female in NAD Heart: normal S1 and S2; no rub or gallop Lungs: clear anteriorly; decreased at bases Abdomen: soft, nontender, nondistended, positive bowel sounds Extremities: no cyanosis or clubbing; 2 - 3+ bilateral edema Skin: No acute rash Objective Data Vital Signs Vital Signs: Vital Signs - 24 hr 11/27/23 10:04 11/27/23 10:20 11/27/23 10:30 Temperature 98.7 F Pulse Rate 75 79 81 Respiratory Rate 16 Blood Pressure 125/59 L 119/58 L 120/64 Pulse Oximetry 98 Oxygen Delivery 11/27/23 13:53 11/27/23 20:00 11/27/23 21:23 Temperature 97.4 F L 99.7 F H Pulse Rate 85 85 91 Respiratory Rate 16 16 12 Blood Pressure 106/48 L 102/52 L Pulse Oximetry 97 97 98 Oxygen Delivery Room Air
[2023-11-28] MEDS: TOLNAFTATE 1% POWDER 45 GM BTL 1 APPLIC TOPICAL ×2 (10:00→20:51)
[2023-11-28 11:30] LABS: Glucose Point of Care 97 mg/dl (65-105)
[2023-11-28 12:00] VITALS: BP 116/70; PULSE 81; RESP 18; TEMP 36.6; O2SAT 99
--- NOTE | 2023-11-28 13:48 | P.PNIM_ITS ---
Progress Note: A&P Assessment and Plan (1) Diarrhea: Qualifiers: Diarrhea type: presumed infectious Qualified Code(s): R19.7 - Diarrhea, unspecified Code(s): R19.7 - Diarrhea, unspecified Status: Acute Assessment and Plan: - CT abd/pelvis: Moderate bilateral pleural effusions. Moderate abdominopelvic ascites. Cholelithiasis. Diffuse soft tissue anasarca. - C. diff negative - stool culture pending diarrhea resolved (2) Thigh shingles: Code(s): B02.9 - Zoster without complications Status: Suspected Assessment and Plan: - patch to proximal/anterior left thigh that started as small vesicles. Vesicles have since ruptured, area is erythematous/open without crusting. Isolation precautions ordered - started on Valtrex x 7days, ends 11/23/23 (3) Ulcer of lower extremity: Qualifiers: Laterality: left Non-pressure ulcer stage: limited to breakdown of skin Qualified Code(s): L97.921 - Non-pressure chronic ulcer of unspecified part of left lower leg limited to breakdown of skin Code(s): L97.909 - Non-pressure chronic ulcer of unspecified part of unspecified lower leg with unspecified severity Status: Acute Assessment and Plan: - ADELA ordered of LLE - low suspicion for DVT given patient is on Eliquis - wound consulted - will add ANNETTE, previously negative in 2020 - DDx: high suspicion for peripheral artery disease, cannot exclude SLE or bullous pemphigoid. S/p Vanc and Zosyn Now on Doxy and Augmentin x 10 days monitor (4) Anasarca: Code(s): R60.1 - Generalized edema Status: Acute Assessment and Plan: - BNP elevated, echo ordered (no previous on file) - on hold Bumex 2 mg PO daily - TSH elevated with low t4 continue home levothyroxine F/u TSH studies outpatient and adjustment then - albumin WNL (5) Swelling of vagina: Code(s): N89.9 - Noninflammatory disorder of vagina, unspecified Status: Acute Assessment and Plan: - anasarca vs yeast infection vs combination thereof - Diflucan 150 mg PO x1 - tolnaftate powder (6) Chronic diastolic (congestive) heart failure: Code(s): I50.32 - Chronic diastolic (congestive) heart failure Status: Chronic Assessment and Plan: - BNP 20,300 - Echo 11/15 :Left ventricular systolic function is mildly reduced, estimated at 45-50% - On hold Bumex 1mg bid - daily weights - monitor I&Os - trend renal function -nephrology following (7) Stage 3b chronic kidney disease: Code(s): N18.32 - Chronic kidney disease, stage 3b Status: Chronic Assessment and Plan: - nephrology consulted - trend renal function - trend electrolytes, correct as needed nephrology following -s/p dialysis catheter -dialysis performed on 11/25 and 11/26 -pending outpatient dialysis (8) Chronic anemia: Code(s): D64.9 - Anemia, unspecified Status: Chronic Assessment and Plan: -11/22 : 7.5<8.5 - hemoglobin 6.9, isat 7 and - isat 7 and FOBT positive - s/p 1 unit pRBC Hb 7.6 today S/p 1000/1000 mg of IV iron, no more iron supplements stop Protonix Upper and lower Endoscopy no remarkable findings Appreciate GI input (9) Type 2 diabetes mellitus, uncontrolled, with renal complications: Status: Chronic Assessment and Plan: - hypoglycemia protocol - POC blood glucose ACHS - home
[2023-11-28 16:35] LABS: Glucose Point of Care 192 mg/dl (65-105)
[2023-11-28 20:00] VITALS: BP 149/111; PULSE 85; RESP 12; TEMP 37.1; O2SAT 95
[2023-11-28] MEDS: ATORVASTATIN 40 MG TABLET PO (20:51)
[2023-11-28] MEDS: traZODone HCL 50 MG TABLET PO (20:51)
[2023-11-28] MEDS: INSULIN GLARGINE (*BKC) 100 UNITS/ML 8 UNITS SUB-Q (20:52)
[2023-11-28 23:49] LABS: Glucose Point of Care 220 mg/dl (65-105)
[2023-11-28 23:51] VITALS: BP 116/66; PULSE 79; RESP 14; TEMP 36.7; O2SAT 98
[2023-11-29] VITALS (24 sets, daily range): BP systolic 94–134; BP diastolic 48–70; PULSE 69–88; RESP 12–18; TEMP 36.3–37.3; O2SAT 95–96
[2023-11-29] MEDS: LEVOTHYROXINE SODIUM 112 MCG TABLET PO (06:15)
[2023-11-29] MEDS: LEVOTHYROXINE SODIUM 25 MCG TABLET PO (06:15)
[2023-11-29 06:56] LABS: Hematocrit 25.5 % (37.0-47.0); Hemoglobin 7.6 g/dL (12.0-15.0); Mean Corpuscular HGB Conc 29.8 g/dl (32-36); Mean Corpuscular Hemoglobin 25.3 pg (26-34); Mean Platelet Volume 10.1 fl (7.4-10.4); Platelet Count Result 192 k/mm3 (150-375); Red Cell Distribution Width 21.5 % (11.5-14.5)
[2023-11-29 07:11] LABS: Albumin Level 2.7 g/dL (3.5-5.1); Anion Gap 8 mmol/L (4-12); Blood Urea Nitrogen 35 mg/dL (7-17); Calcium 7.9 mg/dL (8.4-10.2); Carbon Dioxide 27 mmol/L (22-30); Chloride 100 mmol/L (98-107); Estimated CRCL calculation 21 ml/min; Estimated Glomerular Filt Rate 13; Glucose 121 mg/dL (65-110); Phosphorus 4.2 mg/dL (2.5-4.5); Potassium 4.1 mmol/L (3.4-5.0); Sodium 135 mmol/L (137-145)
[2023-11-29 07:44] LABS: Glucose Point of Care 145 mg/dl (65-105)
[2023-11-29] MEDS: ASPIRIN 81 MG ENTERIC TABLET PO (08:23)
[2023-11-29] MEDS: ASCORBIC ACID 125 MG TABLET PO (08:23)
[2023-11-29] MEDS: FAMOTIDINE 20 MG TABLET 40 MG PO (08:24)
[2023-11-29] MEDS: PANTOPRAZOLE 40 MG TABLET PO (08:24)
[2023-11-29] MEDS: APIXABAN 5 MG TABLET PO ×2 (08:24→21:00)
[2023-11-29] MEDS: TOLNAFTATE 1% POWDER 45 GM BTL 1 APPLIC TOPICAL ×2 (08:25→21:01)
--- NOTE | 2023-11-29 11:21 | PCPTNOTE ---
The patient treatment was not able to be completed at this time due to patient out of room for dialysis treatment. Will plan to continue treatment per plan of care.
--- NOTE | 2023-11-29 11:25 | PM.PNNEP ---
Progress Note: A&P Assessment and Plan (1) SHREYA (acute kidney injury): Code(s): N17.9 - Acute kidney failure, unspecified Status: Chronic Assessment and Plan: marked decline in kidney function noted (see #2) started worsening in late 2022 with creatinine up to 1.7 - 2.2mg/dl however, during hospitalization (at [facility]) in July 2023, creatinine improved back to 1.4 - 1.5mg/dl then, in June 2023, jumped up to 2.7mg/dl admission creatinine up to 2.8mg/dl now complicated by anasarca/volume overload, diminished urine output despite high dose diuretic therapy, metabolic acidosis, and hyperkalemia creatinine now up to 4.9mg/dl RENAL BIOPSY done (11/24/23): class III advanced nodular diabetic glomerulosclerosis ~ 60% interstitial fibrosis and tubular atrophy HD today outpatient dialysis schedule being finalized (2) Stage 3b chronic kidney disease: Code(s): N18.32 - Chronic kidney disease, stage 3b Status: Chronic Assessment and Plan: due to biopsy proven diabetic nephropathy/nephrosclerosis (biopsy done in November 2021) in conjunction with vascular disease evidence of chronic kidney disease that dates back as far as 2017 had been running 1.1 - 1.6mg/dl for the last few years but is known to have worsened to the 2ish range with her hospitalization/acute infections recent rise in creatinine noted in September 2023 (see #1) and during this hospitalization (3) Anasarca: Code(s): R60.1 - Generalized edema Status: Acute Assessment and Plan: as noted by physical exam and imaging studies BNP elevated as well Echo results preliminarily shows a PFO gradual improvement with fluid removal continue fluid removal/ultrafiltration with dialysis (4) Chronic anemia: Code(s): D64.9 - Anemia, unspecified Status: Chronic Assessment and Plan: suspect related to CKD evidence of iron deficiency noted by anemia studies as well Hemoccult positive stools noted s/p EGD and colonoscopy - no active bleeding lesions on TRACY with dialysis follow H/H (5) Ulcer of lower extremity: Qualifiers: Laterality: left Non-pressure ulcer stage: limited to breakdown of skin Qualified Code(s): L97.921 - Non-pressure chronic ulcer of unspecified part of left lower leg limited to breakdown of skin Code(s): L97.909 - Non-pressure chronic ulcer of unspecified part of unspecified lower leg with unspecified severity Status: Acute Assessment and Plan: complicated by possible cellulitis(?) follow culture data - negative to date completed course of antibiotics (6) Receptive aphasia: Code(s): R47.01 - Aphasia Status: Acute Assessment and Plan: noted following EGD/colonoscopy imaging to date noted Neurology following speech seems good right now (7) Hypertension: Code(s): I10 - Essential (primary) hypertension Status: Chronic Assessment and Plan: good control off lisinopril given #1 -- can resume if needed (8) Type 2 diabetes mellitus, uncontrolled, with renal complications: Status: Chronic Assessment and Plan: follow accu-cheks glycemic control per hospitalists Will continue to follow Subjective Date/time seen: 11/29/23 11:25 Interval history: Follow-up for acute kidney injury/acute renal failure on chronic kidney disease. Chart reviewed since last seen -- tolerating dialysis treatment at the time of my visit (seen on HD on 11:15AM); no apparent distress noted; no issues/events overnight or earlier this morning. Exam Narrative: General: WD/WN female in NAD Heart: normal S1 and S2; no rub Lungs: clear anteriorly; decreased at bases Abdomen: soft, nontender, nondistended, positive bowel sounds Extremities: no cyanosis or clubbing; 2+ bilateral edema Skin: no nodules Objective Data Vital Signs Vital Signs: Vital Signs
--- NOTE | 2023-11-29 11:25 | P.PNNP_ITS ---
Progress Note: A&P Assessment and Plan (1) SHREYA (acute kidney injury): Code(s): N17.9 - Acute kidney failure, unspecified Status: Chronic Assessment and Plan: * marked decline in kidney function noted (see #2) * started worsening in late 2022 with creatinine up to 1.7 - 2.2mg/dl * however, during hospitalization (at [facility]) in July 2023, creatinine improved back to 1.4 - 1.5mg/dl * then, in June 2023, jumped up to 2.7mg/dl * admission creatinine up to 2.8mg/dl * now complicated by anasarca/volume overload, diminished urine output despite high dose diuretic therapy, metabolic acidosis, and hyperkalemia * creatinine now up to 4.9mg/dl * RENAL BIOPSY done (11/24/23): * class III advanced nodular diabetic glomerulosclerosis * ~ 60% interstitial fibrosis and tubular atrophy * HD today * outpatient dialysis schedule being finalized (2) Stage 3b chronic kidney disease: Code(s): N18.32 - Chronic kidney disease, stage 3b Status: Chronic Assessment and Plan: * due to biopsy proven diabetic nephropathy/nephrosclerosis (biopsy done in November 2021) in conjunction with vascular disease * evidence of chronic kidney disease that dates back as far as 2017 * had been running 1.1 - 1.6mg/dl for the last few years but is known to have worsened to the 2ish range with her hospitalization/acute infections * recent rise in creatinine noted in September 2023 (see #1) and during this hospitalization (3) Anasarca: Code(s): R60.1 - Generalized edema Status: Acute Assessment and Plan: * as noted by physical exam and imaging studies * BNP elevated as well * Echo results preliminarily shows a PFO * gradual improvement with fluid removal * continue fluid removal/ultrafiltration with dialysis (4) Chronic anemia: Code(s): D64.9 - Anemia, unspecified Status: Chronic Assessment and Plan: * suspect related to CKD * evidence of iron deficiency noted by anemia studies as well * Hemoccult positive stools noted * s/p EGD and colonoscopy - no active bleeding lesions * on TRACY with dialysis * follow H/H (5) Ulcer of lower extremity: Qualifiers: Laterality: left Non-pressure ulcer stage: limited to breakdown of skin Qualified Code(s): L97.921 - Non-pressure chronic ulcer of unspecified part of left lower leg limited to breakdown of skin Code(s): L97.909 - Non-pressure chronic ulcer of unspecified part of unspecified lower leg with unspecified severity Status: Acute Assessment and Plan: * complicated by possible cellulitis(?) * follow culture data - negative to date * completed course of antibiotics (6) Receptive aphasia: Code(s): R47.01 - Aphasia Status: Acute Assessment and Plan: * noted following EGD/colonoscopy * imaging to date noted * Neurology following * speech seems good right now (7) Hypertension: Code(s): I10 - Essential (primary) hypertension Status: Chronic Assessment and Plan: * good control * off lisinopril given #1 -- can resume if needed (8) Type 2 diabetes mellitus, uncontrolled, with renal complications: Status: Chronic Assessment and Plan: * follow accu-cheks * glycemic control per hospitalists Will continue to follow Subjective Date/time seen: 11/29/23 11:25 Interval history: Follow-up for acute kidney injury/acute renal failure on chronic kidney disease. Chart reviewed since last seen -- tolerating dialysis tr
--- NOTE | 2023-11-29 11:27 | PCOTNOTE ---
Patient out of the room at this time, Patient out for dialysis.
[2023-11-29 11:50] LABS: Glucose Point of Care 135 mg/dl (65-105)
[2023-11-29 12:19] LABS: Homocysteine 32.3 umol/L (<10.4)
[2023-11-29] MEDS: EPOETIN ALFA-EPBX 10,000 UNITS/ML VIAL 10000 UNITS IV PUSH (12:22)
--- NOTE | 2023-11-29 13:46 | PCSTNOTE ---
Therapist attempted to resume care 2-3x weekly for second week and treatment was not able to be completed on 11/28 due to dialysis. Will plan to continue treatment per plan of care.
--- NOTE | 2023-11-29 14:27 | PCOTNOTE ---
Attempted again this P.M. Patient has not returned from dialysis yet
--- NOTE | 2023-11-29 14:46 | PCPTNOTE ---
Returned to see patient this afternoon for PT but patient continues to be out of the room in dialysis. PT will continue to follow per plan of care.
[2023-11-29 16:49] LABS: Glucose Point of Care 124 mg/dl (65-105)
[2023-11-29] MEDS: ACETAMINOPHEN 500 MG TABLET 1000 MG PO (18:47)
[2023-11-29 19:56] LABS: Glucose Point of Care 173 mg/dl (65-105)
[2023-11-29] MEDS: INSULIN GLARGINE (*BKC) 100 UNITS/ML 8 UNITS SUB-Q (21:00)
[2023-11-29] MEDS: traZODone HCL 50 MG TABLET PO (21:00)
[2023-11-29] MEDS: ATORVASTATIN 40 MG TABLET PO (21:00)
[2023-11-30] VITALS (7 sets, daily range): BP systolic 105–120; BP diastolic 62–67; PULSE 68–83; RESP 12–18; TEMP 35.7–36.6; O2SAT 97–100
[2023-11-30] MEDS: HYDROcodone/acetaminophen (*CRX) 10-325 MG TABLET 1 TAB PO ×2 (02:15→20:55)
[2023-11-30] MEDS: hydrOXYzine pamoate 25 MG CAPSULE 50 MG PO ×2 (02:15→20:55)
[2023-11-30] MEDS: LEVOTHYROXINE SODIUM 25 MCG TABLET PO (05:40)
[2023-11-30] MEDS: LEVOTHYROXINE SODIUM 112 MCG TABLET PO (05:40)
[2023-11-30 06:58] LABS: Basophils Percent Auto 0.6 % (0.2-1.2); Eosinophils Absolute Auto 0.3 K/mm3 (0-0.3); Eosinophils Percent Auto 5.2 % (0-4.4); Hematocrit 26.4 % (37.0-47.0); Hemoglobin 7.9 g/dL (12.0-15.0); Immature Granulocyte Absolute 0.05 K/mm3 (0.00-0.031); Immature Granulocyte Percent A 0.8 % (0-0.5); Mean Corpuscular HGB Conc 29.9 g/dl (32-36); Mean Corpuscular Hemoglobin 25.8 pg (26-34); Mean Corpuscular Volume 86.3 fl (80-100); Mean Platelet Volume 10.9 fl (7.4-10.4); Monocytes Absolute Auto 0.7 K/mm3 (0.1-0.6); Monocytes Percent Auto 10.5 % (2.6-8.5); Neutrophils Absolute Auto 3.9 K/mm3 (1.3-6.7); Neutrophils Percent Auto 60.9 % (45.5-73.1); Nucleated Red Blood Cells Perc 0.8 % (0.0-0.2); Platelet Count Result 204 k/mm3 (150-375); Red Blood Count 3.06 M/mm3 (4.2-5.4); Red Cell Distribution Width 22.6 % (11.5-14.5); White Blood Count 6.4 K/mm3 (4.5-10.0)
[2023-11-30 07:19] LABS: Anion Gap 9 mmol/L (4-12); Blood Urea Nitrogen 25 mg/dL (7-17); Calcium 7.7 mg/dL (8.4-10.2); Carbon Dioxide 27 mmol/L (22-30); Chloride 97 mmol/L (98-107); Estimated CRCL calculation 28 ml/min; Estimated Glomerular Filt Rate 18; Glucose 125 mg/dL (65-110); Phosphorus 3.3 mg/dL (2.5-4.5); Potassium 3.7 mmol/L (3.4-5.0); Sodium 133 mmol/L (137-145)
[2023-11-30 07:29] LABS: Glucose Point of Care 135 mg/dl (65-105)
[2023-11-30 08:22] LABS: Anisocytosis 2+; Hypochromasia 1+; Ovalocytes 1+; Platelet Estimate Adequate (Adequate); Schistocytes None Seen
[2023-11-30] MEDS: FAMOTIDINE 20 MG TABLET 40 MG PO (08:27)
[2023-11-30] MEDS: ASCORBIC ACID 125 MG TABLET PO (08:27)
[2023-11-30] MEDS: TOLNAFTATE 1% POWDER 45 GM BTL 1 APPLIC TOPICAL ×2 (08:27→21:09)
[2023-11-30] MEDS: ASPIRIN 81 MG ENTERIC TABLET PO (08:27)
[2023-11-30] MEDS: PANTOPRAZOLE 40 MG TABLET PO (08:27)
[2023-11-30] MEDS: BUMETANIDE 1 MG TABLET 2 MG PO (08:27)
[2023-11-30] MEDS: APIXABAN 5 MG TABLET PO ×2 (08:27→20:55)
--- NOTE | 2023-11-30 10:57 | P.PNNP_ITS ---
Progress Note: A&P Assessment and Plan (1) SHREYA (acute kidney injury): Code(s): N17.9 - Acute kidney failure, unspecified Status: Chronic Assessment and Plan: * marked decline in kidney function noted (see #2) * started worsening in late 2022 with creatinine up to 1.7 - 2.2mg/dl * however, during hospitalization (at [facility]) in July 2023, creatinine improved back to 1.4 - 1.5mg/dl * then, in June 2023, jumped up to 2.7mg/dl * admission creatinine up to 2.8mg/dl * now complicated by anasarca/volume overload, diminished urine output despite high dose diuretic therapy, metabolic acidosis, and hyperkalemia * creatinine now up to 4.9mg/dl * RENAL BIOPSY done (11/24/23): * class III advanced nodular diabetic glomerulosclerosis * ~ 60% interstitial fibrosis and tubular atrophy * HD yesterday -- plan next HD treatment on since will be on T/T/S schedule as an outpatient (2) Stage 3b chronic kidney disease: Code(s): N18.32 - Chronic kidney disease, stage 3b Status: Chronic Assessment and Plan: * due to biopsy proven diabetic nephropathy/nephrosclerosis (biopsy done in November 2021) in conjunction with vascular disease * evidence of chronic kidney disease that dates back as far as 2016 * had been running 1.1 - 1.6mg/dl for the last few years but is known to have worsened to the 2ish range with her hospitalization/acute infections * recent rise in creatinine noted in September 2023 (see #1) and during this ho spitalization (3) Anasarca: Code(s): R60.1 - Generalized edema Status: Acute Assessment and Plan: * as noted by physical exam and imaging studies * BNP elevated as well * Echo results preliminarily shows a PFO * gradual improvement with fluid removal * continue fluid removal/ultrafiltration with dialysis (4) Chronic anemia: Code(s): D64.9 - Anemia, unspecified Status: Chronic Assessment and Plan: * suspect related to CKD * evidence of iron deficiency noted by anemia studies as well * Hemoccult positive stools noted * s/p EGD and colonoscopy - no active bleeding lesions * on TRACY with dialysis * follow H/H (5) Ulcer of lower extremity: Qualifiers: Laterality: left Non-pressure ulcer stage: limited to breakdown of skin Qualified Code(s): L97.921 - Non-pressure chronic ulcer of unspecified part of left lower leg limited to breakdown of skin Code(s): L97.909 - Non-pressure chronic ulcer of unspecified part of unspecified lower leg with unspecified severity Status: Acute Assessment and Plan: * complicated by possible cellulitis(?) * follow culture data - negative to date * completed course of antibiotics (6) Receptive aphasia: Code(s): R47.01 - Aphasia Status: Acute Assessment and Plan: * noted following EGD/colonoscopy * imaging to date noted * Neurology following * speech seems good right now (7) Hypertension: Code(s): I10 - Essential (primary) hypertension Status: Chronic Assessment and Plan: * good control * off lisinopril given #1 -- can resume if needed (8) Type 2 diabetes mellitus, uncontrolled, with renal complications: Status: Chronic Assessment and Plan: * follow accu-cheks * glycemic control per hospitalists Will continue to follow Subjective Date/time seen: 11/30/23 10:57 Interval history: Follow-up for acute kidney injury/acute renal failure on chronic kidney disease. Tolerated d
--- NOTE | 2023-11-30 10:57 | PM.PNNEP ---
Progress Note: A&P Assessment and Plan (1) SHREYA (acute kidney injury): Code(s): N17.9 - Acute kidney failure, unspecified Status: Chronic Assessment and Plan: marked decline in kidney function noted (see #2) started worsening in late 2022 with creatinine up to 1.7 - 2.2mg/dl however, during hospitalization (at [facility]) in July 2023, creatinine improved back to 1.4 - 1.5mg/dl then, in June 2023, jumped up to 2.7mg/dl admission creatinine up to 2.8mg/dl now complicated by anasarca/volume overload, diminished urine output despite high dose diuretic therapy, metabolic acidosis, and hyperkalemia creatinine now up to 4.9mg/dl RENAL BIOPSY done (11/24/23): class III advanced nodular diabetic glomerulosclerosis ~ 60% interstitial fibrosis and tubular atrophy HD yesterday -- plan next HD treatment on since will be on T/T/S schedule as an outpatient (2) Stage 3b chronic kidney disease: Code(s): N18.32 - Chronic kidney disease, stage 3b Status: Chronic Assessment and Plan: due to biopsy proven diabetic nephropathy/nephrosclerosis (biopsy done in November 2021) in conjunction with vascular disease evidence of chronic kidney disease that dates back as far as 2017 had been running 1.1 - 1.6mg/dl for the last few years but is known to have worsened to the 2ish range with her hospitalization/acute infections recent rise in creatinine noted in September 2023 (see #1) and during this hospitalization (3) Anasarca: Code(s): R60.1 - Generalized edema Status: Acute Assessment and Plan: as noted by physical exam and imaging studies BNP elevated as well Echo results preliminarily shows a PFO gradual improvement with fluid removal continue fluid removal/ultrafiltration with dialysis (4) Chronic anemia: Code(s): D64.9 - Anemia, unspecified Status: Chronic Assessment and Plan: suspect related to CKD evidence of iron deficiency noted by anemia studies as well Hemoccult positive stools noted s/p EGD and colonoscopy - no active bleeding lesions on TRACY with dialysis follow H/H (5) Ulcer of lower extremity: Qualifiers: Laterality: left Non-pressure ulcer stage: limited to breakdown of skin Qualified Code(s): L97.921 - Non-pressure chronic ulcer of unspecified part of left lower leg limited to breakdown of skin Code(s): L97.909 - Non-pressure chronic ulcer of unspecified part of unspecified lower leg with unspecified severity Status: Acute Assessment and Plan: complicated by possible cellulitis(?) follow culture data - negative to date completed course of antibiotics (6) Receptive aphasia: Code(s): R47.01 - Aphasia Status: Acute Assessment and Plan: noted following EGD/colonoscopy imaging to date noted Neurology following speech seems good right now (7) Hypertension: Code(s): I10 - Essential (primary) hypertension Status: Chronic Assessment and Plan: good control off lisinopril given #1 -- can resume if needed (8) Type 2 diabetes mellitus, uncontrolled, with renal complications: Status: Chronic Assessment and Plan: follow accu-cheks glycemic control per hospitalists Will continue to follow Subjective Date/time seen: 11/30/23 10:57 Interval history: Follow-up for acute kidney injury/acute renal failure on chronic kidney disease. Tolerated dialysis yesterday without any issues or problems; swelling/edema appear somewhat better at this time; no apparent distress voiced at the time of my visit; no issues/events overnight or earlier this morning. Exam Narrative: General: WD/WN female in NAD Heart: normal S1 and S2; no rub Lungs: clear anteriorly; decreased at bases Abdomen: soft, nontender, nondistended, positive bowel sounds Extremities: no cyanosis or clubbing; 2+ bilateral edema; s/p right BKA
[2023-11-30] MEDS: ONDANSETRON INJ 4 MG/2 ML VIAL IV PUSH (11:23)
[2023-11-30 11:24] LABS: Glucose Point of Care 137 mg/dl (65-105)
--- NOTE | 2023-11-30 13:42 | PM.IMPN ---
Progress Note: A&P Assessment and Plan (1) SHREYA (acute kidney injury): Code(s): N17.9 - Acute kidney failure, unspecified Status: Chronic Assessment and Plan: Patient CKD with baseline about 1.1-1.6 but has worsened more recently. She is markedly fluid overloaded related to SHREYA/CKD but also from CHF. RENAL BIOPSY done (11/24/23) showing class III advanced nodular diabetic glomerulosclerosis ~ 60% interstitial fibrosis and tubular atrophy Patient had a right subclavian vein tunneled hemodialysis catheter with intraoperative fluoroscopy on 11/26/23 and HD started HD yesterday -- plan next HD treatment on since will be on T/T/S schedule as an outpatient Appreciate nephrology input Continue HD to control fluid status (2) Chronic diastolic (congestive) heart failure: Code(s): I50.32 - Chronic diastolic (congestive) heart failure Status: Chronic Assessment and Plan: Patient with acute on chronic diastolic CHF with right heart failure - BNP 20,300 - Echo as above On Bumex Continue daily weights, monitor I&Os Use HD to control fluid status (3) Ulcer of lower extremity: Qualifiers: Laterality: left Non-pressure ulcer stage: limited to breakdown of skin Qualified Code(s): L97.921 - Non-pressure chronic ulcer of unspecified part of left lower leg limited to breakdown of skin Code(s): L97.909 - Non-pressure chronic ulcer of unspecified part of unspecified lower leg with unspecified severity Status: Acute Assessment and Plan: ADELA ordered of LLE showing decreased left TBI and nondiagnostic left ADELA consistent with arterial occlusive disease. Low suspicion for DVT given patient is on Eliquis Wound consulted ANNETTE negative S/p Vanc and Zosyn then transtion to Doxy and Augmentin; Off abx since 11/24 continue routine wound care. monitor (4) Anasarca: Code(s): R60.1 - Generalized edema Status: Acute Assessment and Plan: Echo showing EF 45-50% with increased wall thickness, evidence of BBB, reduced RV systolic fxn, moderate MR and moderate-sever TR. Pulmonary HTN 55mmHg. Also with R->L shunt through a patent foramen ovale. She has Rt heart failure. On Bumex TSH elevated with normal FT4 continue home levothyroxine and f/u TSH studies outpatient and adjustment then Continue HD to control fluid status (5) Stage 3b chronic kidney disease: Code(s): N18.32 - Chronic kidney disease, stage 3b Status: Chronic Assessment and Plan: As above (6) Chronic anemia: Code(s): D64.9 - Anemia, unspecified Status: Chronic Assessment and Plan: Hgb low on admission and received 1U PRBC on 11/16. Iron Sat 7% and ferritin low end of normal consistent with iron deficiency FOBT positive S/p 1000/1000 mg of IV iron, no more iron supplements stop Protonix Upper and lower Endoscopy no remarkable findings Appreciate GI input Hgb stable in the 7 range. Follow (7) Type 2 diabetes mellitus, uncontrolled, with renal complications: Status: Chronic Assessment and Plan: A1c 7.9% in September. Glucose reviewed on 11/29 Glucose mostly well controlled. Continue sliding scale and hypoglycemia protocol monitor blood sugar (8) Aphasia: Code(s): R47.01 - Aphasia Status: Acute Assessment and Plan: receptive aphasia vs memory deficit Dementia vs Stroke ECHO as above CT brain showing no acute findings. Neurology consulted and appreciate their input; felt patient with mild dementia B12/Folate and Vit D levels okay PT/OT/ST ordered (9) Swelling of vagina: Code(s): N89.9 - Noninflammatory disorder of vagina, unspecified Status: Acute Assessment and Plan: Anasarca vs yeast infection vs combination thereof - Diflucan 150 mg PO x1 - tolnaftate powder (10) Thigh shingles: Code(s): B02.9 - Zoster without complications Status: Suspected Assessme
[2023-11-30 16:34] LABS: Glucose Point of Care 175 mg/dl (65-105)
[2023-11-30 20:19] LABS: Glucose Point of Care 207 mg/dl (65-105)
[2023-11-30] MEDS: ATORVASTATIN 40 MG TABLET PO (20:55)
[2023-11-30] MEDS: traZODone HCL 50 MG TABLET PO (20:55)
[2023-11-30] MEDS: INSULIN GLARGINE (*BKC) 100 UNITS/ML 8 UNITS SUB-Q (21:58)
[2023-12-01] VITALS (8 sets, daily range): BP systolic 96–111; BP diastolic 46–60; PULSE 63–71; RESP 14–16; TEMP 36.2–37; O2SAT 94–99
[2023-12-01] MEDS: LEVOTHYROXINE SODIUM 25 MCG TABLET PO (05:55)
[2023-12-01] MEDS: LEVOTHYROXINE SODIUM 112 MCG TABLET PO (05:55)
[2023-12-01 07:31] LABS: Glucose Point of Care 137 mg/dl (65-105)
[2023-12-01] MEDS: APIXABAN 5 MG TABLET PO ×2 (08:20→22:01)
[2023-12-01] MEDS: FAMOTIDINE 20 MG TABLET 40 MG PO (08:20)
[2023-12-01] MEDS: ASCORBIC ACID 125 MG TABLET PO (08:21)
[2023-12-01] MEDS: PANTOPRAZOLE 40 MG TABLET PO (08:21)
[2023-12-01] MEDS: TOLNAFTATE 1% POWDER 45 GM BTL 1 APPLIC TOPICAL ×2 (08:21→22:01)
[2023-12-01] MEDS: ASPIRIN 81 MG ENTERIC TABLET PO (08:21)
[2023-12-01 11:34] LABS: Glucose Point of Care 101 mg/dl (65-105)
--- NOTE | 2023-12-01 12:33 | PM.PNNEP ---
Progress Note: A&P Assessment and Plan (1) SHREYA (acute kidney injury): Code(s): N17.9 - Acute kidney failure, unspecified Status: Chronic Assessment and Plan: marked decline in kidney function noted (see #2) started worsening in late 2022 with creatinine up to 1.7 - 2.2mg/dl however, during hospitalization (at [facility]) in July 2023, creatinine improved back to 1.4 - 1.5mg/dl then, in June 2023, jumped up to 2.7mg/dl admission creatinine up to 2.8mg/dl now complicated by anasarca/volume overload, diminished urine output despite high dose diuretic therapy, metabolic acidosis, and hyperkalemia creatinine now up to 4.9mg/dl RENAL BIOPSY done (11/24/23): class III advanced nodular diabetic glomerulosclerosis ~ 60% interstitial fibrosis and tubular atrophy plan next HD treatment tomorrow since she will be on T/T/S schedule as an outpatient (2) Stage 3b chronic kidney disease: Code(s): N18.32 - Chronic kidney disease, stage 3b Status: Chronic Assessment and Plan: due to biopsy proven diabetic nephropathy/nephrosclerosis (biopsy done in November 2021) in conjunction with vascular disease evidence of chronic kidney disease that dates back as far as 2017 had been running 1.1 - 1.6mg/dl for the last few years but is known to have worsened to the 2ish range with her hospitalization/acute infections recent rise in creatinine noted in September 2023 (see #1) and during this hospitalization (3) Anasarca: Code(s): R60.1 - Generalized edema Status: Acute Assessment and Plan: as noted by physical exam and imaging studies BNP elevated as well Echo results preliminarily shows a PFO gradual improvement with fluid removal continue fluid removal/ultrafiltration with dialysis (4) Chronic anemia: Code(s): D64.9 - Anemia, unspecified Status: Chronic Assessment and Plan: suspect related to CKD evidence of iron deficiency noted by anemia studies as well Hemoccult positive stools noted s/p EGD and colonoscopy - no active bleeding lesions on TRACY with dialysis follow H/H (5) Ulcer of lower extremity: Qualifiers: Laterality: left Non-pressure ulcer stage: limited to breakdown of skin Qualified Code(s): L97.921 - Non-pressure chronic ulcer of unspecified part of left lower leg limited to breakdown of skin Code(s): L97.909 - Non-pressure chronic ulcer of unspecified part of unspecified lower leg with unspecified severity Status: Acute Assessment and Plan: complicated by possible cellulitis(?) follow culture data - negative to date completed course of antibiotics (6) Receptive aphasia: Code(s): R47.01 - Aphasia Status: Acute Assessment and Plan: noted following EGD/colonoscopy imaging to date noted plan MRI of brain today Neurology following speech seems good right now (7) Hypertension: Code(s): I10 - Essential (primary) hypertension Status: Chronic Assessment and Plan: good control off lisinopril given #1 -- can resume if needed (8) Type 2 diabetes mellitus, uncontrolled, with renal complications: Status: Chronic Assessment and Plan: follow accu-cheks glycemic control per hospitalists Will continue to follow Subjective Date/time seen: 12/01/23 12:33 Interval history: Follow-up for acute kidney injury/acute renal failure on chronic kidney disease. Appears to be doing reasonably well at the time of my visit; about to go down for MRI of brain (was not done earlier as she had significant difficulties laying on her back); swelling/edema seems to have improved with dialysis and subsequent fluid removal; no apparent distress noted at the time of my visit. Exam Narrative: General: WD/WN female in NAD Heart: normal S1 and S2; no rub Lungs: clear anteriorly; decreased at bases Abdomen: soft, nontender, nondis
--- NOTE | 2023-12-01 12:33 | P.PNNP_ITS ---
Progress Note: A&P Assessment and Plan (1) SHREYA (acute kidney injury): Code(s): N17.9 - Acute kidney failure, unspecified Status: Chronic Assessment and Plan: * marked decline in kidney function noted (see #2) * started worsening in late 2022 with creatinine up to 1.7 - 2.2mg/dl * however, during hospitalization (at [facility]) in July 2023, creatinine improved back to 1.4 - 1.5mg/dl * then, in June 2023, jumped up to 2.7mg/dl * admission creatinine up to 2.8mg/dl * now complicated by anasarca/volume overload, diminished urine output despite high dose diuretic therapy, metabolic acidosis, and hyperkalemia * creatinine now up to 4.9mg/dl * RENAL BIOPSY done (11/24/23): * class III advanced nodular diabetic glomerulosclerosis * ~ 60% interstitial fibrosis and tubular atrophy * plan next HD treatment tomorrow since she will be on T/T/S schedule as an outpatient (2) Stage 3b chronic kidney disease: Code(s): N18.32 - Chronic kidney disease, stage 3b Status: Chronic Assessment and Plan: * due to biopsy proven diabetic nephropathy/nephrosclerosis (biopsy done in November 2021) in conjunction with vascular disease * evidence of chronic kidney disease that dates back as far as 2017 * had been running 1.1 - 1.6mg/dl for the last few years but is known to have worsened to the 2ish range with her hospitalization/acute infections * recent rise in creatinine noted in September 2023 (see #1) and during this hospitalization (3) Anasarca: Code(s): R60.1 - Generalized edema Status: Acute Assessment and Plan: * as noted by physical exam and imaging studies * BNP elevated as well * Echo results preliminarily shows a PFO * gradual improvement with fluid removal * continue fluid removal/ultrafiltration with dialysis (4) Chronic anemia: Code(s): D64.9 - Anemia, unspecified Status: Chronic Assessment and Plan: * suspect related to CKD * evidence of iron deficiency noted by anemia studies as well * Hemoccult positive stools noted * s/p EGD and colonoscopy - no active bleeding lesions * on TRACY with dialysis * follow H/H (5) Ulcer of lower extremity: Qualifiers: Laterality: left Non-pressure ulcer stage: limited to breakdown of skin Qualified Code(s): L97.921 - Non-pressure chronic ulcer of unspecified part of left lower leg limited to breakdown of skin Code(s): L97.909 - Non-pressure chronic ulcer of unspecified part of unspecified lower leg with unspecified severity Status: Acute Assessment and Plan: * complicated by possible cellulitis(?) * follow culture data - negative to date * completed course of antibiotics (6) Receptive aphasia: Code(s): R47.01 - Aphasia Status: Acute Assessment and Plan: * noted following EGD/colonoscopy * imaging to date noted * plan MRI of brain today * Neurology following * speech seems good right now (7) Hypertension: Code(s): I10 - Essential (primary) hypertension Status: Chronic Assessment and Plan: * good control * off lisinopril given #1 -- can resume if needed (8) Type 2 diabetes mellitus, uncontrolled, with renal complications: Status: Chronic Assessment and Plan: * follow accu-cheks * glycemic control per hospitalists Will continue to follow Subjective Date/time seen: 12/01/23 12:33 Interval history: Follow-up for acute kidney injury/acute renal failure on chronic kidney disease.
--- NOTE | 2023-12-01 13:24 | PCPTNOTE ---
The patient treatment was not able to be completed at this time due to patient out of room for MRI. Will plan to continue treatment per plan of care.
--- NOTE | 2023-12-01 15:17 | PM.IMPN ---
Progress Note: A&P Assessment and Plan (1) SHREYA (acute kidney injury): Code(s): N17.9 - Acute kidney failure, unspecified Status: Chronic Assessment and Plan: Patient CKD with baseline about 1.1-1.6 but has worsened more recently. She is markedly fluid overloaded related to SHREYA/CKD but also from CHF. RENAL BIOPSY done (11/24/23) showing class III advanced nodular diabetic glomerulosclerosis ~ 60% interstitial fibrosis and tubular atrophy Patient had a right subclavian vein tunneled hemodialysis catheter with intraoperative fluoroscopy on 11/26/23 and HD started Continue hemodialysis as per Nephrology Patient will be on T/T/S schedule as an outpatient Appreciate nephrology input Continue HD to control fluid status (2) Chronic diastolic (congestive) heart failure: Code(s): I50.32 - Chronic diastolic (congestive) heart failure Status: Chronic Assessment and Plan: Patient with acute on chronic diastolic CHF with right heart failure - BNP 20,300 - Echo as above On Bumex Continue daily weights, monitor I&Os Use HD to control fluid status Her Bumex for SBP less than 100 (3) Ulcer of lower extremity: Qualifiers: Laterality: left Non-pressure ulcer stage: limited to breakdown of skin Qualified Code(s): L97.921 - Non-pressure chronic ulcer of unspecified part of left lower leg limited to breakdown of skin Code(s): L97.909 - Non-pressure chronic ulcer of unspecified part of unspecified lower leg with unspecified severity Status: Acute Assessment and Plan: ADELA ordered of LLE showing decreased left TBI and nondiagnostic left ADELA consistent with arterial occlusive disease. Low suspicion for DVT given patient is on Eliquis Wound consulted ANNETTE negative S/p Vanc and Zosyn then transtion to Doxy and Augmentin; Off abx since 11/24 continue routine wound care. monitor (4) Anasarca: Code(s): R60.1 - Generalized edema Status: Acute Assessment and Plan: Echo showing EF 45-50% with increased wall thickness, evidence of BBB, reduced RV systolic fxn, moderate MR and moderate-sever TR. Pulmonary HTN 55mmHg. Also with R->L shunt through a patent foramen ovale. She has Rt heart failure. On Bumex TSH elevated with normal FT4 continue home levothyroxine and f/u TSH studies outpatient and adjustment then Continue HD to control fluid status (5) Stage 3b chronic kidney disease: Code(s): N18.32 - Chronic kidney disease, stage 3b Status: Chronic Assessment and Plan: Continue close follow-up with Nephrology Patient is on hemodialysis (6) Chronic anemia: Code(s): D64.9 - Anemia, unspecified Status: Chronic Assessment and Plan: Hgb low on admission and received 1U PRBC on 11/16. Iron Sat 7% and ferritin low end of normal consistent with iron deficiency FOBT positive S/p 1000/1000 mg of IV iron, no more iron supplements stop Protonix Upper and lower Endoscopy no remarkable findings Appreciate GI input Hgb stable in the 7 range. Follow (7) Type 2 diabetes mellitus, uncontrolled, with renal complications: Status: Chronic Assessment and Plan: A1c 7.9% in September. Glucose reviewed on 11/29 Glucose mostly well controlled. Continue sliding scale and hypoglycemia protocol monitor blood sugar (8) Aphasia: Code(s): R47.01 - Aphasia Status: Acute Assessment and Plan: receptive aphasia vs memory deficit Dementia vs Stroke ECHO as above CT brain showing no acute findings. Neurology consulted and appreciate their input; felt patient with mild dementia B12/Folate and Vit D levels okay PT/OT/ST ordered 12/01/2023: Brain MRI ordered which showed Single tiny focus of susceptibility artifact in the right frontoparietal region likely sequela of chronic microhemorrhage Hold off on aspirin/anticoagulation Neurology consult to evaluate patient (9) Swelling of vagina: Code(
--- NOTE | 2023-12-01 16:27 | PC.NURSE ---
per hospitalist, this nurse called neurology to read MRI of brain results of this patient and to ask if neurology had any recommendations regarding MRI result. Neurology stated to hold ASA and to continue the Eliquis 5mg Q12HR that pt has been on. These orders were read to the hospitalist by this nurse.
[2023-12-01 16:39] LABS: Glucose Point of Care 136 mg/dl (65-105)
[2023-12-01 20:08] LABS: Glucose Point of Care 148 mg/dl (65-105)
[2023-12-01] MEDS: hydrOXYzine pamoate 25 MG CAPSULE 50 MG PO (22:00)
[2023-12-01] MEDS: HYDROcodone/acetaminophen (*CRX) 10-325 MG TABLET 1 TAB PO (22:01)
[2023-12-01] MEDS: traZODone HCL 50 MG TABLET PO (22:01)
[2023-12-01] MEDS: ATORVASTATIN 40 MG TABLET PO (22:01)
[2023-12-01] MEDS: INSULIN GLARGINE (*BKC) 100 UNITS/ML 8 UNITS SUB-Q (22:05)
[2023-12-02] VITALS (21 sets, daily range): BP systolic 89–130; BP diastolic 44–82; PULSE 53–91; RESP 16–18; TEMP 36.4–37.2; O2SAT 96–98
[2023-12-02] MEDS: LEVOTHYROXINE SODIUM 112 MCG TABLET PO (06:32)
[2023-12-02] MEDS: LEVOTHYROXINE SODIUM 25 MCG TABLET PO (06:32)
[2023-12-02 07:59] LABS: Glucose Point of Care 101 mg/dl (65-105)
[2023-12-02 08:10] LABS: Anion Gap 5 mmol/L (4-12); Blood Urea Nitrogen 32 mg/dL (7-17); Calcium 7.8 mg/dL (8.4-10.2); Carbon Dioxide 29 mmol/L (22-30); Chloride 95 mmol/L (98-107); Estimated CRCL calculation 20 ml/min; Estimated Glomerular Filt Rate 12; Glucose 88 mg/dL (65-110); Magnesium 1.9 mg/dL (1.6-2.3); Phosphorus 4.3 mg/dL (2.5-4.5); Potassium 4.3 mmol/L (3.4-5.0); Sodium 129 mmol/L (137-145)
[2023-12-02 08:22] LABS: Basophils Percent Auto 0.5 % (0.2-1.2); Eosinophils Absolute Auto 0.3 K/mm3 (0-0.3); Eosinophils Percent Auto 4.4 % (0-4.4); Hemoglobin 7.2 g/dL (12.0-15.0); Immature Granulocyte Absolute 0.03 K/mm3 (0.00-0.031); Immature Granulocyte Percent A 0.5 % (0-0.5); Lymphocytes Absolute Auto 1.63 K/mm3 (0.9-3.2); Lymphocytes Percent Auto 24.5 % (18.3-44.2); Mean Corpuscular Hemoglobin 26.4 pg (26-34); Mean Corpuscular Volume 87.9 fl (80-100); Mean Platelet Volume 10.9 fl (7.4-10.4); Monocytes Absolute Auto 0.7 K/mm3 (0.1-0.6); Monocytes Percent Auto 10.2 % (2.6-8.5); Neutrophils Percent Auto 59.9 % (45.5-73.1); Nucleated Red Blood Cells Perc 0.3 % (0.0-0.2); Platelet Count Result 211 k/mm3 (150-375); Red Blood Count 2.73 M/mm3 (4.2-5.4); Red Cell Distribution Width 24.4 % (11.5-14.5); White Blood Count 6.6 K/mm3 (4.5-10.0)
--- NOTE | 2023-12-02 08:23 | PC.NURSE ---
Patient off of unit to dialysis
[2023-12-02] MEDS: TOLNAFTATE 1% POWDER 45 GM BTL 1 APPLIC TOPICAL ×2 (09:30→22:30)
[2023-12-02 09:43] LABS: Hypochromasia 1+; Platelet Estimate Adequate (Adequate)
[2023-12-02 09:44] LABS: Anisocytosis 2+; Ovalocytes 1+; Schistocytes None Seen; Tear Drop Cells 1+
[2023-12-02 09:45] LABS: Acanthocytes 1+
--- NOTE | 2023-12-02 10:01 | PM.PNNEP ---
Progress Note: A&P Assessment and Plan (1) SHREYA (acute kidney injury): Code(s): N17.9 - Acute kidney failure, unspecified Status: Chronic Assessment and Plan: marked decline in kidney function noted (see #2) started worsening in late 2022 with creatinine up to 1.7 - 2.2mg/dl however, during hospitalization (at [facility]) in July 2023, creatinine improved back to 1.4 - 1.5mg/dl then, in June 2023, jumped up to 2.7mg/dl admission creatinine up to 2.8mg/dl now complicated by anasarca/volume overload, diminished urine output despite high dose diuretic therapy, metabolic acidosis, and hyperkalemia creatinine now up to 4.9mg/dl RENAL BIOPSY done (11/24/23): class III advanced nodular diabetic glomerulosclerosis ~ 60% interstitial fibrosis and tubular atrophy HD today plan HD tomorrow prior to discharge (since will not be able to get outpatient dialyis treatment on Wednesday) (2) Stage 3b chronic kidney disease: Code(s): N18.32 - Chronic kidney disease, stage 3b Status: Chronic Assessment and Plan: due to biopsy proven diabetic nephropathy/nephrosclerosis (biopsy done in November 2021) in conjunction with vascular disease evidence of chronic kidney disease that dates back as far as 2017 had been running 1.1 - 1.6mg/dl for the last few years but is known to have worsened to the 2ish range with her hospitalization/acute infections recent rise in creatinine noted in September 2023 (see #1) and during this hospitalization (3) Anasarca: Code(s): R60.1 - Generalized edema Status: Acute Assessment and Plan: as noted by physical exam and imaging studies BNP elevated as well Echo results preliminarily shows a PFO gradual improvement with fluid removal continue fluid removal/ultrafiltration with dialysis (4) Chronic anemia: Code(s): D64.9 - Anemia, unspecified Status: Chronic Assessment and Plan: suspect related to CKD evidence of iron deficiency noted by anemia studies as well Hemoccult positive stools noted s/p EGD and colonoscopy - no active bleeding lesions on TRACY with dialysis follow H/H (5) Ulcer of lower extremity: Qualifiers: Laterality: left Non-pressure ulcer stage: limited to breakdown of skin Qualified Code(s): L97.921 - Non-pressure chronic ulcer of unspecified part of left lower leg limited to breakdown of skin Code(s): L97.909 - Non-pressure chronic ulcer of unspecified part of unspecified lower leg with unspecified severity Status: Acute Assessment and Plan: complicated by possible cellulitis(?) follow culture data - negative to date completed course of antibiotics (6) Receptive aphasia: Code(s): R47.01 - Aphasia Status: Acute Assessment and Plan: noted following EGD/colonoscopy imaging to date noted MRI of brain results noted Neurology following speech seems good right now (7) Hypertension: Code(s): I10 - Essential (primary) hypertension Status: Chronic Assessment and Plan: good control off lisinopril given #1 -- can resume if needed (8) Type 2 diabetes mellitus, uncontrolled, with renal complications: Status: Chronic Assessment and Plan: follow accu-cheks glycemic control per hospitalists Will continue to follow Subjective Date/time seen: 12/02/23 10:01 Interval history: Follow-up for acute kidney injury/acute renal failure on chronic kidney disease. Tolerating dialysis treatment at the time of my visit (seen on HD at 0:50AM); no apparent distress noted; overall, she states she feels reasonably well; no issues/events overnight or earlier this morning. Exam Narrative: General: WD/WN female in NAD Heart: normal S1 and S2; no rub Lungs: clear anteriorly; decreased at bases Abdomen: soft, nontender, nondistended, positive bowel sounds Extremities: no cyanosis or clubbing
--- NOTE | 2023-12-02 10:01 | P.PNNP_ITS ---
Progress Note: A&P Assessment and Plan (1) SHREYA (acute kidney injury): Code(s): N17.9 - Acute kidney failure, unspecified Status: Chronic Assessment and Plan: * marked decline in kidney function noted (see #2) * started worsening in late 2022 with creatinine up to 1.7 - 2.2mg/dl * however, during hospitalization (at [facility]) in July 2023, creatinine improved back to 1.4 - 1.5mg/dl * then, in June 2023, jumped up to 2.7mg/dl * admission creatinine up to 2.8mg/dl * now complicated by anasarca/volume overload, diminished urine output despite high dose diuretic therapy, metabolic acidosis, and hyperkalemia * creatinine now up to 4.9mg/dl * RENAL BIOPSY done (11/24/23): * class III advanced nodular diabetic glomerulosclerosis * ~ 60% interstitial fibrosis and tubular atrophy * HD today * plan HD tomorrow prior to discharge (since will not be able to get outpatient dialyis treatment on Wednesday) (2) Stage 3b chronic kidney disease: Code(s): N18.32 - Chronic kidney disease, stage 3b Status: Chronic Assessment and Plan: * due to biopsy proven diabetic nephropathy/nephrosclerosis (biopsy done in November 2021) in conjunction with vascular disease * evidence of chronic kidney disease that dates back as far as 2017 * had been running 1.1 - 1.6mg/dl for the last few years but is known to have worsened to the 2ish range with her hospitalization/acute infections * recent rise in creatinine noted in September 2023 (see #1) and during this hospitalization (3) Anasarca: Code(s): R60.1 - Generalized edema Status: Acute Assessment and Plan: * as noted by physical exam and imaging studies * BNP elevated as well * Echo results preliminarily shows a PFO * gradual improvement with fluid removal * continue fluid removal/ultrafiltration with dialysis (4) Chronic anemia: Code(s): D64.9 - Anemia, unspecified Status: Chronic Assessment and Plan: * suspect related to CKD * evidence of iron deficiency noted by anemia studies as well * Hemoccult positive stools noted * s/p EGD and colonoscopy - no active bleeding lesions * on TRACY with dialysis * follow H/H (5) Ulcer of lower extremity: Qualifiers: Laterality: left Non-pressure ulcer stage: limited to breakdown of skin Qualified Code(s): L97.921 - Non-pressure chronic ulcer of unspecified part of left lower leg limited to breakdown of skin Code(s): L97.909 - Non-pressure chronic ulcer of unspecified part of unspecified lower leg with unspecified severity Status: Acute Assessment and Plan: * complicated by possible cellulitis(?) * follow culture data - negative to date * completed course of antibiotics (6) Receptive aphasia: Code(s): R47.01 - Aphasia Status: Acute Assessment and Plan: * noted following EGD/colonoscopy * imaging to date noted * MRI of brain results noted * Neurology following * speech seems good right now (7) Hypertension: Code(s): I10 - Essential (primary) hypertension Status: Chronic Assessment and Plan: * good control * off lisinopril given #1 -- can resume if needed (8) Type 2 diabetes mellitus, uncontrolled, with renal complications: Status: Chronic Assessment and Plan: * follow accu-cheks * glycemic control per hospitalists Will continue to follow Subjective Date/time seen: 12/02/23 10:01 Interval history: Follow-up for acute kidney injury/acute debra
--- NOTE | 2023-12-02 10:15 | PCPTNOTE ---
The patient treatment was not able to be completed at this time due to patient out of room for dialysis. Will plan to continue treatment per plan of care.
[2023-12-02] MEDS: EPOETIN ALFA-EPBX 10,000 UNITS/ML VIAL 20000 UNITS IV PUSH (10:53)
--- NOTE | 2023-12-02 11:23 | PCOTNOTE ---
Patient out of the room at this time. Patient having dialysis.
--- NOTE | 2023-12-02 12:50 | PC.NURSE ---
Patient back to unit from dialysis.
[2023-12-02 12:51] LABS: Glucose Point of Care 108 mg/dl (65-105)
--- NOTE | 2023-12-02 14:47 | PCPTNOTE ---
Attempted to see patient for PT however patient on the phone with an insurance company and not able to participate at this time. PT will continue to follow per plan of care.
[2023-12-02] MEDS: hydrOXYzine pamoate 25 MG CAPSULE 50 MG PO (14:53)
--- NOTE | 2023-12-02 15:38 | PM.IMPN ---
Progress Note: A&P Assessment and Plan (1) SHREYA (acute kidney injury): Code(s): N17.9 - Acute kidney failure, unspecified Status: Chronic Assessment and Plan: Patient CKD with baseline about 1.1-1.6 but has worsened more recently. She is markedly fluid overloaded related to SHREYA/CKD but also from CHF. RENAL BIOPSY done (11/24/23) showing class III advanced nodular diabetic glomerulosclerosis ~ 60% interstitial fibrosis and tubular atrophy Patient had a right subclavian vein tunneled hemodialysis catheter with intraoperative fluoroscopy on 11/26/23 and HD started Continue hemodialysis as per Nephrology Patient's renal functions and creatinine is slowly improving Patient will be on T/T/S schedule as an outpatient Appreciate nephrology input Continue HD to control fluid status (2) Chronic diastolic (congestive) heart failure: Code(s): I50.32 - Chronic diastolic (congestive) heart failure Status: Chronic Assessment and Plan: Patient with acute on chronic diastolic CHF with right heart failure - BNP 20,300 - Echo as above On Bumex Continue daily weights, monitor I&Os Use HD to control fluid status Hold Bumex for SBP less than 100 (3) Ulcer of lower extremity: Qualifiers: Laterality: left Non-pressure ulcer stage: limited to breakdown of skin Qualified Code(s): L97.921 - Non-pressure chronic ulcer of unspecified part of left lower leg limited to breakdown of skin Code(s): L97.909 - Non-pressure chronic ulcer of unspecified part of unspecified lower leg with unspecified severity Status: Acute Assessment and Plan: ADELA ordered of LLE showing decreased left TBI and nondiagnostic left ADELA consistent with arterial occlusive disease. Low suspicion for DVT given patient is on Eliquis Wound consulted ANNETTE negative S/p Vanc and Zosyn then transtion to Doxy and Augmentin; Off abx since 11/24 continue routine wound care. Monitor closely (4) Anasarca: Code(s): R60.1 - Generalized edema Status: Acute Assessment and Plan: Echo showing EF 45-50% with increased wall thickness, evidence of BBB, reduced RV systolic fxn, moderate MR and moderate-sever TR. Pulmonary HTN 55mmHg. Also with R->L shunt through a patent foramen ovale. She has Rt heart failure. On Bumex TSH elevated with normal FT4 continue home levothyroxine and f/u TSH studies outpatient and adjustment then Continue HD to control fluid status (5) Stage 3b chronic kidney disease: Code(s): N18.32 - Chronic kidney disease, stage 3b Status: Chronic Assessment and Plan: Continue close follow-up with Nephrology Patient is on hemodialysis (6) Chronic anemia: Code(s): D64.9 - Anemia, unspecified Status: Chronic Assessment and Plan: Hgb low on admission and received 1U PRBC on 11/16. Iron Sat 7% and ferritin low end of normal consistent with iron deficiency FOBT positive S/p 1000/1000 mg of IV iron, no more iron supplements stop Protonix Upper and lower Endoscopy no remarkable findings Appreciate GI input Hgb stable in the 7 range. Follow (7) Type 2 diabetes mellitus, uncontrolled, with renal complications: Status: Chronic Assessment and Plan: A1c 7.9% in September. Glucose reviewed on 11/29 Glucose mostly well controlled. Continue sliding scale and hypoglycemia protocol monitor blood sugar (8) Aphasia: Code(s): R47.01 - Aphasia Status: Acute Assessment and Plan: receptive aphasia vs memory deficit Dementia vs Stroke ECHO as above CT brain showing no acute findings. Neurology consulted and appreciate their input; felt patient with mild dementia B12/Folate and Vit D levels okay PT/OT/ST ordered 12/01/2023: Brain MRI ordered which showed Single tiny focus of susceptibility artifact in the right frontoparietal region likely sequela of chronic microhemorrhage Neurology consulted to evaluate patient Neurol
[2023-12-02 16:51] LABS: Glucose Point of Care 113 mg/dl (65-105)
[2023-12-02 20:08] LABS: Glucose Point of Care 170 mg/dl (65-105)
[2023-12-02] MEDS: HYDROcodone/acetaminophen (*CRX) 10-325 MG TABLET 1 TAB PO (20:25)
[2023-12-02] MEDS: traZODone HCL 50 MG TABLET PO (20:26)
[2023-12-02] MEDS: ATORVASTATIN 40 MG TABLET PO (20:26)
[2023-12-02] MEDS: APIXABAN 5 MG TABLET PO (20:27)
[2023-12-02] MEDS: INSULIN GLARGINE (*BKC) 100 UNITS/ML 8 UNITS SUB-Q (20:31)
[2023-12-03] VITALS (20 sets, daily range): BP systolic 81–115; BP diastolic 30–61; PULSE 57–78; RESP 14–18; TEMP 36–37; O2SAT 95–99
[2023-12-03] MEDS: HYDROcodone/acetaminophen (*CRX) 10-325 MG TABLET 1 TAB PO (05:52)
[2023-12-03] MEDS: LEVOTHYROXINE SODIUM 25 MCG TABLET PO (05:52)
[2023-12-03] MEDS: LEVOTHYROXINE SODIUM 112 MCG TABLET PO (05:52)
[2023-12-03 06:35] LABS: Basophils Absolute Auto 0.1 K/mm3 (0.0-0.1); Basophils Percent Auto 0.8 % (0.2-1.2); Eosinophils Absolute Auto 0.3 K/mm3 (0-0.3); Eosinophils Percent Auto 3.8 % (0-4.4); Hematocrit 27.2 % (37.0-47.0); Hemoglobin 7.9 g/dL (12.0-15.0); Immature Granulocyte Absolute 0.05 K/mm3 (0.00-0.031); Immature Granulocyte Percent A 0.7 % (0-0.5); Lymphocytes Absolute Auto 1.51 K/mm3 (0.9-3.2); Lymphocytes Percent Auto 20.6 % (18.3-44.2); Mean Corpuscular Hemoglobin 25.9 pg (26-34); Mean Corpuscular Volume 89.2 fl (80-100); Mean Platelet Volume 10.5 fl (7.4-10.4); Monocytes Absolute Auto 0.6 K/mm3 (0.1-0.6); Monocytes Percent Auto 8.7 % (2.6-8.5); Neutrophils Absolute Auto 4.8 K/mm3 (1.3-6.7); Neutrophils Percent Auto 65.4 % (45.5-73.1); Platelet Count Result 204 k/mm3 (150-375); Red Blood Count 3.05 M/mm3 (4.2-5.4); Red Cell Distribution Width 25.6 % (11.5-14.5); White Blood Count 7.3 K/mm3 (4.5-10.0)
[2023-12-03 06:44] LABS: Anion Gap 9 mmol/L (4-12); Blood Urea Nitrogen 24 mg/dL (7-17); Calcium 8.4 mg/dL (8.4-10.2); Carbon Dioxide 27 mmol/L (22-30); Chloride 98 mmol/L (98-107); Estimated CRCL calculation 25 ml/min; Estimated Glomerular Filt Rate 16; Glucose 80 mg/dL (65-110); Potassium 4.1 mmol/L (3.4-5.0); Sodium 134 mmol/L (137-145)
[2023-12-03 08:06] LABS: Anisocytosis 1+; Hypochromasia 2+; Platelet Estimate Adequate (Adequate)
[2023-12-03 08:07] LABS: Macrocytosis 1+ (NORMAL); Schistocytes None Seen
[2023-12-03 08:08] LABS: Glucose Point of Care 67 mg/dl (65-105)
--- NOTE | 2023-12-03 08:30 | PC.NURSE ---
patient to dialysis @[id number] 12/03/23.
[2023-12-03] MEDS: ALBUMIN HUMAN 25% 12.5 GM/50ML 50 ML IVPB ×2 (08:53→11:03)
--- NOTE | 2023-12-03 09:19 | PM.PNNEP ---
Progress Note: A&P Assessment and Plan (1) SHREYA (acute kidney injury): Code(s): N17.9 - Acute kidney failure, unspecified Status: Chronic Assessment and Plan: marked decline in kidney function noted (see #2) started worsening in late 2022 with creatinine up to 1.7 - 2.2mg/dl however, during hospitalization (at [facility]) in July 2023, creatinine improved back to 1.4 - 1.5mg/dl then, in June 2023, jumped up to 2.7mg/dl admission creatinine up to 2.8mg/dl now complicated by anasarca/volume overload, diminished urine output despite high dose diuretic therapy, metabolic acidosis, and hyperkalemia creatinine now up to 4.9mg/dl RENAL BIOPSY done (11/24/23): class III advanced nodular diabetic glomerulosclerosis ~ 60% interstitial fibrosis and tubular atrophy HD today since next treatment will not be still next as an outpatient (2) Stage 3b chronic kidney disease: Code(s): N18.32 - Chronic kidney disease, stage 3b Status: Chronic Assessment and Plan: due to biopsy proven diabetic nephropathy/nephrosclerosis (biopsy done in November 2021) in conjunction with vascular disease evidence of chronic kidney disease that dates back as far as 2017 had been running 1.1 - 1.6mg/dl for the last few years but is known to have worsened to the 2ish range with her hospitalization/acute infections recent rise in creatinine noted in September 2023 (see #1) and during this hospitalization (3) Anasarca: Code(s): R60.1 - Generalized edema Status: Acute Assessment and Plan: as noted by physical exam and imaging studies BNP elevated as well Echo results preliminarily shows a PFO gradual improvement with fluid removal continue fluid removal/ultrafiltration with dialysis (4) Chronic anemia: Code(s): D64.9 - Anemia, unspecified Status: Chronic Assessment and Plan: suspect related to CKD evidence of iron deficiency noted by anemia studies as well Hemoccult positive stools noted s/p EGD and colonoscopy - no active bleeding lesions on TRACY with dialysis follow H/H (5) Ulcer of lower extremity: Qualifiers: Laterality: left Non-pressure ulcer stage: limited to breakdown of skin Qualified Code(s): L97.921 - Non-pressure chronic ulcer of unspecified part of left lower leg limited to breakdown of skin Code(s): L97.909 - Non-pressure chronic ulcer of unspecified part of unspecified lower leg with unspecified severity Status: Acute Assessment and Plan: complicated by possible cellulitis(?) follow culture data - negative to date completed course of antibiotics (6) Receptive aphasia: Code(s): R47.01 - Aphasia Status: Acute Assessment and Plan: noted following EGD/colonoscopy imaging to date noted MRI of brain results noted Neurology following speech seems good right now (7) Hypertension: Code(s): I10 - Essential (primary) hypertension Status: Chronic Assessment and Plan: good control if not on the low side off lisinopril given #1 -- can resume if needed may need to consider midodrine with dialysis (8) Type 2 diabetes mellitus, uncontrolled, with renal complications: Status: Chronic Assessment and Plan: follow accu-cheks glycemic control per hospitalists Will continue to follow Subjective Date/time seen: 12/03/23 09:19 Interval history: Follow-up for acute kidney injury/acute renal failure on chronic kidney disease. Tolerating dialysis treatment at the time of my visit (seen on HD at 9:10AM); resting comfortably when seen, tolerated dialysis yesterday without any issues or problems; no issues/events overnight or earlier this AM; BP on the lower side at this time but asymptomatic. Exam Narrative: General: WD/WN female in NAD Heart: normal S1 and S2; no rub Lungs: clear anteriorly; decreased at bases A
--- NOTE | 2023-12-03 09:19 | P.PNNP_ITS ---
Progress Note: A&P Assessment and Plan (1) SHREYA (acute kidney injury): Code(s): N17.9 - Acute kidney failure, unspecified Status: Chronic Assessment and Plan: * marked decline in kidney function noted (see #2) * started worsening in late 2022 with creatinine up to 1.7 - 2.2mg/dl * however, during hospitalization (at [facility]) in July 2023, creatinine improved back to 1.4 - 1.5mg/dl * then, in June 2023, jumped up to 2.7mg/dl * admission creatinine up to 2.8mg/dl * now complicated by anasarca/volume overload, diminished urine output despite high dose diuretic therapy, metabolic acidosis, and hyperkalemia * creatinine now up to 4.9mg/dl * RENAL BIOPSY done (11/24/23): * class III advanced nodular diabetic glomerulosclerosis * ~ 60% interstitial fibrosis and tubular atrophy * HD today since next treatment will not be still next as an outpatient (2) Stage 3b chronic kidney disease: Code(s): N18.32 - Chronic kidney disease, stage 3b Status: Chronic Assessment and Plan: * due to biopsy proven diabetic nephropathy/nephrosclerosis (biopsy done in November 2021) in conjunction with vascular disease * evidence of chronic kidney disease that dates back as far as 2017 * had been running 1.1 - 1.6mg/dl for the last few years but is known to have worsened to the 2ish range with her hospitalization/acute infections * recent rise in creatinine noted in September 2023 (see #1) and during this hospitalization (3) Anasarca: Code(s): R60.1 - Generalized edema Status: Acute Assessment and Plan: * as noted by physical exam and imaging studies * BNP elevated as well * Echo results preliminarily shows a PFO * gradual improvement with fluid removal * continue fluid removal/ultrafiltration with dialysis (4) Chronic anemia: Code(s): D64.9 - Anemia, unspecified Status: Chronic Assessment and Plan: * suspect related to CKD * evidence of iron deficiency noted by anemia studies as well * Hemoccult positive stools noted * s/p EGD and colonoscopy - no active bleeding lesions * on TRACY with dialysis * follow H/H (5) Ulcer of lower extremity: Qualifiers: Laterality: left Non-pressure ulcer stage: limited to breakdown of skin Qualified Code(s): L97.921 - Non-pressure chronic ulcer of unspecified part of left lower leg limited to breakdown of skin Code(s): L97.909 - Non-pressure chronic ulcer of unspecified part of unspecified lower leg with unspecified severity Status: Acute Assessment and Plan: * complicated by possible cellulitis(?) * follow culture data - negative to date * completed course of antibiotics (6) Receptive aphasia: Code(s): R47.01 - Aphasia Status: Acute Assessment and Plan: * noted following EGD/colonoscopy * imaging to date noted * MRI of brain results noted * Neurology following * speech seems good right now (7) Hypertension: Code(s): I10 - Essential (primary) hypertension Status: Chronic Assessment and Plan: * good control if not on the low side * off lisinopril given #1 -- can resume if needed * may need to consider midodrine with dialysis (8) Type 2 diabetes mellitus, uncontrolled, with renal complications: Status: Chronic Assessment and Plan: * follow accu-cheks * glycemic control per hospitalists Will continue to follow Subjective Date/time seen: 12/03/23 09:19 Interval history: Follow-
--- NOTE | 2023-12-03 09:55 | PCOTNOTE ---
Patient unavailable for therapy services. Patient is out of the room, having dialysis.
[2023-12-03] MEDS: EPOETIN ALFA-EPBX 10,000 UNITS/ML VIAL 10000 UNITS IV PUSH (10:36)
[2023-12-03 13:03] LABS: Glucose Point of Care 67 mg/dl (65-105)
--- NOTE | 2023-12-03 13:23 | PM.DS ---
DS: Admitting Diagnosis Discharge Date 12/03/2023 Admitting Diagnosis Generalized weakness DS: Discharge Diagnosis Discharge Diagnosis (1) SHREYA (acute kidney injury): Code(s): N17.9 - Acute kidney failure, unspecified Status: Chronic (2) Chronic diastolic (congestive) heart failure: Code(s): I50.32 - Chronic diastolic (congestive) heart failure Status: Chronic (3) Ulcer of lower extremity: Qualifiers: Laterality: left Non-pressure ulcer stage: limited to breakdown of skin Qualified Code(s): L97.921 - Non-pressure chronic ulcer of unspecified part of left lower leg limited to breakdown of skin Code(s): L97.909 - Non-pressure chronic ulcer of unspecified part of unspecified lower leg with unspecified severity Status: Acute (4) Anasarca: Code(s): R60.1 - Generalized edema Status: Acute (5) Stage 3b chronic kidney disease: Code(s): N18.32 - Chronic kidney disease, stage 3b Status: Chronic (6) Chronic anemia: Code(s): D64.9 - Anemia, unspecified Status: Chronic (7) Type 2 diabetes mellitus, uncontrolled, with renal complications: Status: Chronic (8) Aphasia: Code(s): R47.01 - Aphasia Status: Acute (9) Swelling of vagina: Code(s): N89.9 - Noninflammatory disorder of vagina, unspecified Status: Acute (10) Thigh shingles: Code(s): B02.9 - Zoster without complications Status: Suspected (11) Diarrhea: Qualifiers: Diarrhea type: presumed infectious Qualified Code(s): R19.7 - Diarrhea, unspecified Code(s): R19.7 - Diarrhea, unspecified Status: Acute DS: Summary Hospital Course Hospital Course: This is a 68-year-old female presented to the ED on 11/16/2023 with diarrhea and generalized weakness. Associated abdominal pain diffuse. She was recently treated with Bactrim on 10/05/2023 course. Creatinine was elevated at 2.8 on admission. Her baseline creatinine was 1.1-1.6 with recent worsening. Admission complicated with anasarca/volume overload diminished urine output despite high-dose diuretic therapy metabolic acidosis and hyperkalemia with creatinine up to 4.9. Renal biopsy was done on 11/24/2023 which showed class 3 advanced noted lower diabetic nodular glomerulosclerosis with approximately 60% interstitial fibrosis and tubular started on hemodialysis per Nephrology recommendations and is set up for outpatient dialysis Wednesday. She has a right subclavian vein tunnel hemodialysis catheter which was placed on 11/26/2023. Patient was diagnosed with acute on chronic diastolic congestive heart failure with right heart. BNP was [address]99. Echo with EF 45-50 with increased wall thickness evidence of bundle-branch block reduced RV systolic function severe TR pulmonary hypertension of 55 mm Hg also has right to left shunt through a patent foraminal ovale. On Bumex Lower extremity ulcers: ADELA decrease left TBI and a consistent with arterial occlusive disease. Patient already on Eliquis. ANNETTE negative. Was treated with vancomycin and Zosyn and transition to oral antibiotics. Completed antibiotic course on 11/25/2023 Hypothyroidism on levothyroxine needs TSH monitoring as an outpatient basis TSH was mildly high during the hospital stay Chronic anemia saturation during the hospital admission needing transfusion on 11/17/2023. Iron saturation 7% and ferritin low consistent with iron deficiency FOBT was positive. IV iron was given. Upper and lower endoscopy with no remarkable findings which was performed by GI. H&H remained stable now Type 2 diabetes A1c 8.4% Paroxysmal atrial fibrillation on Eliquis. With end-stage renal disease will lower the dose to 2.5 mg b.i.d. Aphasic episode during hospitalization. Allergy was consulted. CT brain was negative. MRI brain showed a tiny focus of susceptibility artifact in the right frontal parietal region likely sequelae of chronic sherie
[2023-12-03 13:27] LABS: Glucose Point of Care 83 mg/dl (65-105)
[2023-12-03] MEDS: ASCORBIC ACID 125 MG TABLET PO (13:58)
[2023-12-03] MEDS: FAMOTIDINE 20 MG TABLET PO (13:58)
[2023-12-03] MEDS: PANTOPRAZOLE 40 MG TABLET PO (14:01)
[2023-12-03 14:51] LABS: SARS-CoV-2 RNA PCR Negative (Negative)
--- NOTE | 2023-12-03 15:20 | WPDNEUROPN ---
Progress Note: A&P Assessment and Plan (1) Metabolic encephalopathy: Code(s): G93.41 - Metabolic encephalopathy Status: Acute (2) Acute kidney injury superimposed on chronic kidney disease: Code(s): N17.9 - Acute kidney failure, unspecified; N18.9 - Chronic kidney disease, unspecified Status: Acute (3) Type 2 diabetes mellitus, uncontrolled, with renal complications: Status: Chronic (4) Paroxysmal atrial fibrillation: Code(s): I48.0 - Paroxysmal atrial fibrillation Status: Chronic Plan Significant progress is noted in her mental status which is suggestive of metabolic encephalopathy being the more predominant issue. At this time I do not feel that she has any significant cognitive impairment however should there be any other issues a follow-up evaluation in Neurology office in next 2 3 months may be helpful. I would sign off from Neurology point of view at this time but please let me know if I could be of any further assistance. Subjective Date/time seen: 12/03/23 15:20 Interval history: The patient is very alert and able to talk and express herself much better than before. She has had dialysis and most of her medical and metabolic problems have improved. Previous records were reviewed. his she is having some bleeding from the nose result of some cut to the left side of the nose and she is pressing with a towel. Review of Systems Review of Systems: All systems reviewed & are unremarkable except as noted in HPI and below Exam Narrative: Alert and oriented no aphasia or dysarthria she is oriented to self place and person. Neuro EEG does not findings were grossly within acceptable normal limits at this time. Objective Data Vital Signs Vital Signs: Vital Signs - 24 hr 12/02/23 20:00 12/02/23 20:00 12/03/23 00:00 Temperature 99 F 98.5 F Pulse Rate 76 76 Respiratory Rate 16 14 Blood Pressure 115/61 98/48 L Pulse Oximetry 96 96 Oxygen Delivery Room Air Oxygen Flow Rate Fraction of Inspired Oxygen 12/03/23 04:00 12/03/23 08:00 12/03/23 08:31 Temperature 97.3 F L 97.5 F L Pulse Rate 68 67 Respiratory Rate 16 18 Blood Pressure 95/46 L 97/54 L Pulse Oximetry 98 98 Oxygen Delivery Oxygen Flow Rate 0 Fraction of Inspired Oxygen 0 12/03/23 08:31 12/03/23 08:46 12/03/23 10:15 Temperature 97.9 F Pulse Rate 71 69 57 L Respiratory Rate 18 Blood Pressure 100/42 L 100/40 L 91/38 L Pulse Oximetry 99 Oxygen Delivery Oxygen Flow Rate Fraction of Inspired Oxygen 12/03/23 10:45 12/03/23 11:54 12/03/23 12:27 Temperature 96.8 F L Pulse Rate 67 67 68 Respiratory Rate 16 Blood Pressure 91/43 L 94/44 L 97/61 L Pulse Oximetry 99 Oxygen Delivery Oxygen Flow Rate Fraction of Inspired Oxygen 12/03/23 09:00 12/03/23 09:15 12/03/23 09:30 Temperature Pulse Rate 69 68 68 Respiratory Rate Blood Pressure 83/40 L 81/41 L 93/34 L Pulse Oximetry Oxygen Delivery Oxygen Flow Rate Fraction of Inspired Oxygen 12/03/23 09:45 12/03/23 10:00 12/03/23 10:30 Temperature Pulse Rate 68 68 73 Respiratory Rate Blood Pressure 96/30 L 104/44 L 102/43 L Pulse Oximetry Oxygen Delivery Oxygen Flow Rate Fraction of Inspired Oxygen 12/03/23 11:00 12/03/23 11:15 12/03/23 11:15 Temperature Pulse Rate 69 68 68 Respiratory Rate Blood Pressure 97/51 L 90/35 L 90/35 L Pulse Oximetry Oxygen Delivery Oxygen Flow Rate Fraction of Inspired Oxygen 12/03/23 11:45 12/03/23 12:00 Temperature 97.3 F L Pulse Rate 68 72 Respiratory Rate 16 Blood Pressure 92/34 L 96/53 L Pulse Oximetry 95 Oxygen Delivery Oxygen Flow Rate Fraction of Inspired Oxygen Intake/Output Intake/Output: Intake & Output 11/30/23 12/01/23 12/02/23 12/03/23 23:59 23:59 23:59 23:59 Intake Total 4144 314 0638 1250 Output Total 0 3300 0 Balance 1817 720 -1420 1250 Meds/Re
--- NOTE | 2023-12-03 15:36 | PCSTNOTE ---
The patient treatment was not able to be completed on 12/02 due to patient in dialysis. Will plan to continue treatment per plan of care.
[2023-12-03] MEDS: TOLNAFTATE 1% POWDER 45 GM BTL 1 APPLIC TOPICAL (17:00)
[2023-12-03 20:05] LABS: Glucose Point of Care 86 mg/dl (65-105)
== END 2023-12-03 17:45 | DRG 291 ==
LOC: ANHED 08:04 → ANH3MEDSUR 08:40 → ANHIMU 13:17 → ANH3MEDSUR 11-19 18:42
PROVIDERS: Emergency Medicine; Family Medicine; General Practice; Internal Medicine Gastroenterology; Internal Medicine Nephrology; Psychiatry & Neurology Neurology; Student in an Organized Health Care Education/Training Program; Surgery; Admitting Provider Internal Medicine; Emergency Provider Emergency Medicine; PCP Physician Assistant; Visit Provider Internal Medicine
PROC: 0DJ08ZZ Inspection of Upper Intestinal Tract, Via Natural or Artificial Opening Endoscopic (ICD-10-PCS; CPT 43235; principal; 2023-11-19 13:30)
PROC: 0JH63XZ Insertion of Tunneled Vascular Access Device into Chest Subcutaneous Tissue and Fascia, Percutaneous Approach (ICD-10-PCS; CPT 36908; principal; 2023-11-26 14:00)
DX: I13.0 Hypertensive heart and chronic kidney disease with heart failure and stage 1 through stage 4 chronic kidney disease, or unspecified chronic kidney disease (principal); I50.33 Acute on chronic diastolic (congestive) heart failure; E87.20 Acidosis, unspecified; R47.01 Aphasia; R18.8 Other ascites; M86.9 Osteomyelitis, unspecified; L97.821 Non-pressure chronic ulcer of other part of left lower leg limited to breakdown of skin; N17.9 Acute kidney failure, unspecified; R19.7 Diarrhea, unspecified; B02.9 Zoster without complications; D63.1 Anemia in chronic kidney disease; D50.9 Iron deficiency anemia, unspecified; E87.5 Hyperkalemia; E11.22 Type 2 diabetes mellitus with diabetic chronic kidney disease; E03.9 Hypothyroidism, unspecified; E11.65 Type 2 diabetes mellitus with hyperglycemia; E78.5 Hyperlipidemia, unspecified; E11.42 Type 2 diabetes mellitus with diabetic polyneuropathy; F03.A0 Unspecified dementia, mild, without behavioral disturbance, psychotic disturbance, mood disturbance, and anxiety; F41.9 Anxiety disorder, unspecified; I48.0 Paroxysmal atrial fibrillation; I25.10 Atherosclerotic heart disease of native coronary artery without angina pectoris; K80.20 Calculus of gallbladder without cholecystitis without obstruction; K64.8 Other hemorrhoids; K57.90 Diverticulosis of intestine, part unspecified, without perforation or abscess without bleeding; N89.8 Other specified noninflammatory disorders of vagina; N18.32 Chronic kidney disease, stage 3b; N26.9 Renal sclerosis, unspecified; Z79.01 Long term (current) use of anticoagulants; Z79.4 Long term (current) use of insulin; Z20.822 Contact with and (suspected) exposure to COVID-19; Z11.52 Encounter for screening for COVID-19; Z95.1 Presence of aortocoronary bypass graft; Z87.891 Personal history of nicotine dependence; Z89.422 Acquired absence of other left toe(s); Z89.511 Acquired absence of right leg below knee
CPT/HCPCS: 36415; 36430; 50200; 70450; 70553; 71045; 74176; 76942; 77001; 80048; 80053; 80061; 80069; 80202; 81001; 81050; 82274; 82306; 82565; 82570; 82607; 82728; 82746; 82803; 82948; 83036; 83090; 83540; 83550; 83605; 83690; 83735; 83880; 84100; 84132; 84156; 84300; 84439; 84443; 84480; 84484; 84540; 85025; 85027; 85610; 85730; 85999; 86038; 86039; 86704; 86706; 86850; 86900; 86901; 86923; 87040; 87045; 87086; 87340; 87427; 87449; 87493; 87635; 87637; 88300; 88305; 88313; 88329; 88346; 88348; 88350; 92507; 93005; 93306; 93308; 93880; 93922; 96374; 96375; 97110; 97161; 97165; 97530; 97535; 99285; A9270; A9577; C1750; G0257; J0690; J1170; J1644; J1756; J1815; J1939; J1940; J2270; J2405; J2470; J2543; J2704; J3370; J7030; J7040; J7050; J7120; P9016; P9047; Q5105

== ENCOUNTER 2024-02-17 14:02 | Inpatient (IN) | payer MEDICARE, SELFPAY ==
[2024-02-17] VITALS (9 sets, daily range): BP systolic 151–165; BP diastolic 87–102; PULSE 84–90; RESP 16–20; TEMP 36.4–36.7; O2SAT 94–98; BMI 35.4
--- NOTE | ~2024-02-17 | XR_ITS ---
EXAMINATION: XR chest 1V portable DATE: 02/17/2024 14:59 INDICATION: Shortness of breath. TECHNIQUE: A single frontal view of the chest was obtained. COMPARISON: Chest single view 11/26/2023 FINDINGS: There is mild atelectasis in the lower lung zones. No pleural effusion or pneumothorax. The heart size is normal. Median sternotomy wires and mediastinal surgical clips are seen, likely from p rior coronary artery bypass grafting. There is a right subclavian central venous catheter with tip in right brachiocephalic vein. IMPRESSION: 1. Mild atelectasis in the lower lung zones. 2. Retraction of the central line, now with tip in the right brachiocephalic vein. Reviewed, dictated and finalized at location [facility] [employer] IMPRESSION: 1. Mild atelectasis in the lower lung zones. 2. Retraction of the central line, now with tip in the right brachiocephalic ve in.
--- NOTE | 2024-02-17 14:08 | ECG_ITS ---
Test Date: 2024-02-17 14:13:16 Measurements Intervals [place] Rate: 87 P: 0 NH: 0 QRS: 93 QRSD: 89 T: 129 QT: 350 QTc: 423 Interpretive Statements ATRIAL FIBRILLATION BORDERLINE RIGHT AXIS DEVIATION [QRS AXIS > 90] LOW QRS VOLTAGE IN EXTREMITY LEADS [QRS DEFLECTION < 0.5 mV IN LIMB LEADS] ANTEROSEPTAL MYOCARDIAL INFARCTION , PROBABLY OLD [40+ ms Q WAVE IN V1-V4] Compared to ECG 11/16/2023 07:50:28 Atrial flutter no longer present Myocardial infarct finding still present Electronically Signed On 02-17-2024 15:18:44 [employer] by Asif Montana M.D.
--- NOTE | 2024-02-17 15:04 | ED_ITS ---
HPI - General Adult General Chief complaint: Recheck/Abnormal Lab/Rx Stated complaint: chf missed dialysis Time Seen by Provider: 02/17/24 14:48 History of Present Illness HPI narrative: 68-year-old female with history of type 2 diabetes, hypertension, chronic kidney disease, CHF presented emergency department for evaluation for worsening shortness of breath. Patient does follow-up with Nephrology, Dr White, and she was told that she did not need dialysis this week because her labs were improving. Patient states over the last 2 days she has had increased difficulty with lying flat and has had worsening left lower extremity edema, patient does have some blistering the left leg from fluid overload. Patient is saturating well on room air when sitting upright, patient states that she does have a hospital bed at home and sleeps upright. Related Data Home Medications Medication Instructions Recorded Confirmed atorvastatin 40 mg tablet 40 mg PO HS 12/09/21 11/16/23 cholecalciferol (vitamin D3) 50 1,250 mcg PO WEEKLY 12/09/21 11/16/23 mcg (2,000 unit) tablet hydroxyzine pamoate 50 mg capsule 50 mg PO TID PRN Anxiety 03/30/22 11/16/23 levothyroxine 125 mcg tablet 137 mcg PO DAILY 04/17/22 11/16/23 insulin pen,reusable,BT,lispro 12/14/22 11/16/23 (InPen (for Humalog) Blue subcutaneous) acetaminophen 500 mg tablet 1,000 mg PO Q6H PRN Pain (Scale 10/11/23 11/16/23 (Acetaminophen Extra Strength) Score 4-6) iron,carbonyl 30 mg-vitamin C 10 1 tablet PO BID 10/11/23 11/16/23 mg-FOS 25 mg chewable tablet trazodone 50 mg tablet 50 mg PO HS 10/11/23 11/16/23 Allergies Allergy/AdvReac Type Severity Reaction Status Date / Time semaglutide [From Ozempic] AdvReac Unknown Verified 11/19/23 09:49 Review of Systems Review of Systems: All systems reviewed & are unremarkable except as noted in HPI and below PMFSH Past Medical History Medical History Chronic anemia Chronic anticoagulation Coronary artery disease Diabetic neuropathy Hyperlipidemia Hypertension Insulin dependent type 2 diabetes mellitus Osteomyelitis Paroxysmal atrial fibrillation Stage 3b chronic kidney disease Urinary retention Surgical History Surgical History History of amputation of toe History of coronary artery bypass graft History of hysterectomy History of right below knee amputation Family History Family History Sibling Thymus cancer Diabetes mellitus All 4 siblings Lung cancer, lower lobe Melanoma Lymph edema Mother Family history of emphysema Father Acute myocardial infarction Social History Social History Social History: Surrogate medical decision maker: Natan Marquez, spouse. Code status: Full code. Smoking packs per day: 1 Smoking cigarettes per day: 20.0 Years smoked: 30 Smoking pack-years: 30.00 Smoking status: Former smoker Tobacco type: cigarettes Second hand tobacco smoke exposure: Yes ( smokes) Smoking end date: 03/15/06 Alcohol intake: never Substance use: never Substance use type: marijuana Do You Feel Safe in your Home?: Yes Lack of Transportation: YES Lack of Food: Never True Current Housing: I Have Housing Concerned About Future Housing: No Difficulty Paying Gas/Electric Bills: No Difficulty Paying for Meds: No Currently Unemployed: No Education: Trade/Vocational Certificate Difficulty w/ Childcare or Family Care: No Gender identity (if verbalized by the patient): Female Spiritual care concerns: No Exam Narrative: APPEARANCE: Uncomfortable up HEAD: normocephalic, atraumatic. EYES: PERRLA/EOMI, conjunctivae clear. NOSE: Normal no drainage EARS:TMS clear with good light reflex. THROAT: Pharynx clear, no exudate. NECK: Supple. No adenopathy, no masses. RESPIRATORY: Rhonchi bilaterally CARDIOVASCULAR: Regular rate and rhythm without murmurs rubs or gallops. ABDOMINAL: Soft, nontender, nondistended, normal bowel sounds MUSCULOSKELETAL: Tense edema on left lower extremity NEURO: Alert. Cranial nerves II through XII intact. Good gait. Good coordination SKIN: Warm, dry. Normal Color Course Vital Signs Vital signs: Vital Signs Temperature 97.6 F 02/17/24 14:03 Pulse Rate 90 02/17/24 14:03 Respiratory Rate 18 02/17/24 14:03 Blood Pressure 165/102 H 02/17/24 14:03 Pulse Oximetry 97 02/17/24 14:03 Oxygen Delivery Room Air 02/17/24 14:03 Temperature 97.6 F 02/17/24 14:03 Pulse Rate 88 02/17/24 19:32 Respiratory Rate 20 02/17/24 19:32 Blood Pressure 155/102 H 02/17/24 19:32 Pulse Oximetry 97 02/17/24 19:32 Oxygen Delivery Room Air 02/17/24 14:03 Medical Decision Making MDM Narrative Medical decision making narrative: A 68-year-old female history of hypertension, type 2 diabetes and end-stage renal disease presented emergency department for evaluation for worsening fluid overload. Chest x-ray does show some pulmonary edema patient does have a significant elevated BNP at 23,500. Patient's creatinine a few days ago had been down to 1.9 but was increased to 2.3. Nephrology was consulted and they agreed to the plan for admission and started the patient on Lasix. They were folder evaluate the patient and determine if she needs to be restarted on her dialysis. Chest x-ray did show retraction the central line. Nephrology was updated on this. Case was discussed with hospitalist patient was accepted for admission. Patient was comfortable plan for admission as well. Differential Diagnosis Differential Diagnosis: Pneumonia, pulmonary embolism, cellulitis, edema, CHF Vital Signs Vital Signs: Vital Signs Temperature 97.6 F 02/17/24 14:03 Pulse Rate 90 02/17/24 14:03 Respiratory Rate 18 02/17/24 14:03 Blood Pressure 165/102 H 02/17/24 14:03 Pulse Oximetry 97 02/17/24 14:03 Oxygen Delivery Room Air 02/17/24 14:03 Temperature 97.6 F 02/17/24 14:03 Pulse Rate 88 02/17/24 19:32 Respiratory Rate 20 02/17/24 19:32 Blood Pressure 155/102 H 02/17/24 19:32 Pulse Oximetry 97 02/17/24 19:32 Oxygen Delivery Room Air 02/17/24 14:03 Lab Data Lab results reviewed: Yes I reviewed the patient's lab results. 02/17/24 15:56 02/17/24 15:56 Labs: Lab Results 02/17/24 Range/Units 15:56 WBC 6.5 (4.5-10.0) K/mm3 RBC 3.55 L (4.2-5.4) M/mm3 Hgb 10.3 L (12.0-15.0) g/dL Hct 33.5 L (37.0-47.0) % MCV 94.4 (80-100) fl MCH 29.0 (26-34) pg MCHC 30.7 L (32-36) g/dl RDW 18.5 H (11.5-14.5) % Plt Count 234 (150-375) k/mm3 MPV 9.9 (7.4-10.4) fl Immature Gran % (Auto) 0.3 (0-0.5) % Neut % (Auto) 70.4 (45.5-73.1) % Lymph % (Auto) 21.2 (18.3-44.2) % [place] % (Auto) 5.3 (2.6-8.5) % Eos % (Auto) 2.0 (0-4.4) % Baso % (Auto) 0.8 (0.2-1.2) % Lymph # (Auto) 1.37 (0.9-3.2) K/mm3 [place] # (Auto) 0.3 (0.1-0.6) K/mm3 Eos # (Auto) 0.1 (0-0.3) K/mm3 Baso # (Auto) 0.1 (0.0-0.1) K/mm3 Abs Immat Gran (auto) 0.02 (0.00-0.031) K/mm3 Absolute Neuts (auto) 4.6 (1.3-6.7) K/mm3 Absolute Nucleated RBC 0.000 (0.0-0.012) K/mm3 Nucleated RBC % 0.0 (0.0-0.2) % Sodium 139 (137-145) mmol/L Potassium 4.7 (3.4-5.0) mmol/L Chloride 110 H (98-107) mmol/L Carbon Dioxide 20 L (22-30) mmol/L Anion Gap 9 (4-12) mmol/L BUN 51 H D (7-17) mg/dL Creatinine 2.30 H (0.7-1.0) mg/dL Estim Creat Clear Calc 27 ml/min Estimated GFR 21 L (59 - ) Glucose 211 H (65-110) mg/dL Calcium 8.6 (8.4-10.2) mg/dL Total Bilirubin 0.9 (0.2-1.3) mg/dL AST 20 (14-36) U/L ALT 14 (6-35) U/L Alkaline Phosphatase 180 H (38-126) U/L NT-Pro-B Natriuret Pep 29970 H (19.9-100) pg/mL Total Protein 7.0 (6.3-8.2) g/dL Albumin 3.6 (3.5-5.1) g/dL Influenza A (RT-PCR) Negative (Negative) Influenza B (RT-PCR) Negative (Negative) RSV (RT-PCR) Negative (Negative) SARS-CoV-2 RNA (RT-PCR) Negative (Negative) Imaging Data Radiologist's impression: Impressions Chest X-Ray 02/17/24 15:01 IMPRESSION: 1. Mild atelectasis in the lower lung zones. 2. Retraction of the central line, now with tip in the right brachiocephalic vein. ECG Data EKG #1: EKG Interpretation: normal rate, atrial fibrillation, non-specific ST changes and normal QRS Discharge Plan Discharge Clinical Impression: Orthopnea, Chronic kidney disease, Fluid overload Patient Disposition: Still a Patient Condition: Serious
[2024-02-17 16:10] LABS: Basophils Absolute Auto 0.1 K/mm3 (0.0-0.1); Basophils Percent Auto 0.8 % (0.2-1.2); Eosinophils Absolute Auto 0.1 K/mm3 (0-0.3); Hematocrit 33.5 % (37.0-47.0); Hemoglobin 10.3 g/dL (12.0-15.0); Immature Granulocyte Absolute 0.02 K/mm3 (0.00-0.031); Immature Granulocyte Percent A 0.3 % (0-0.5); Lymphocytes Absolute Auto 1.37 K/mm3 (0.9-3.2); Lymphocytes Percent Auto 21.2 % (18.3-44.2); Mean Corpuscular HGB Conc 30.7 g/dl (32-36); Mean Corpuscular Volume 94.4 fl (80-100); Mean Platelet Volume 9.9 fl (7.4-10.4); Monocytes Absolute Auto 0.3 K/mm3 (0.1-0.6); Monocytes Percent Auto 5.3 % (2.6-8.5); Neutrophils Absolute Auto 4.6 K/mm3 (1.3-6.7); Neutrophils Percent Auto 70.4 % (45.5-73.1); Platelet Count Result 234 k/mm3 (150-375); Red Blood Count 3.55 M/mm3 (4.2-5.4); Red Cell Distribution Width 18.5 % (11.5-14.5); White Blood Count 6.5 K/mm3 (4.5-10.0)
[2024-02-17 16:20] LABS: Alanine Aminotransferase 14 U/L (6-35); Albumin Level 3.6 g/dL (3.5-5.1); Alkaline Phosphatase 180 U/L (38-126); Anion Gap 9 mmol/L (4-12); Aspartate Amino Transferase 20 U/L (14-36); Bilirubin,Total 0.9 mg/dL (0.2-1.3); Blood Urea Nitrogen 51 mg/dL (7-17); Calcium 8.6 mg/dL (8.4-10.2); Carbon Dioxide 20 mmol/L (22-30); Chloride 110 mmol/L (98-107); Estimated CRCL calculation 27 ml/min; Estimated Glomerular Filt Rate 21; Glucose 211 mg/dL (65-110); Potassium 4.7 mmol/L (3.4-5.0); Sodium 139 mmol/L (137-145)
[2024-02-17] MEDS: LORazepam INJ (*CRX) 2 MG/ML VIAL 0.5 MG IV PUSH (16:20)
[2024-02-17 16:28] LABS: NT Pro B Type Natriuretic Pept 23500 pg/mL (19.9-100)
[2024-02-17 16:58] LABS: Influenza A QL RT-PCR Negative (Negative); Influenza B QL RT-PCR Negative (Negative); RSV RNA, RT-PCR Negative (Negative); SARS-CoV-2 RNA PCR Negative (Negative)
[2024-02-17] MEDS: FUROSEMIDE INJ 40 MG/4 ML VIAL IV PUSH (18:21)
--- NOTE | 2024-02-17 18:25 | PM.IMHP ---
H&P: HPI History of Present Illness Date/Time: 02/17/24 18:25 Chief Complaint: Shortness of breath. Narrative: This is a 68-year-old female with left and right ventricular systolic dysfunction and diastolic dysfunction, paroxysmal atrial fibrillation on anticoagulation, coronary artery disease, hypertension, hyperlipidemia, hypothyroidism, insulin-dependent diabetes, neurogenic bladder, and chronic kidney disease who was started on dialysis and November although her renal function is improving and she has not been dialyzed for over a week who presented to the emergency department for evaluation of shortness of breath. The patient provides the following history. She was at the [facility] today being fitted for prosthesis and when she lay down she developed pretty significant shortness of breath. With further questioning she also endorses an increase in swelling in her extremities. She denies fever, chills, sweats, cold and flu symptoms, productive cough, chest pain, pleuritic pain, palpitations nausea, vomiting, dysuria, and calf pain. On exam she was noted to have multiple shallow ulcerations and excoriations on her extremities and she tells me that she is ?always itchy and anxious for which they prescribed me hydroxyzine.? In the ED: She was afebrile on arrival with stable vital signs. Labs were significant for WBC count of 6.5, hemoglobin 10.3 BUN 51, creatinine 2.30, sodium 139 potassium 4.7, glucose 211, proBNP 29130, albumin 3.6. Chest x-ray showed mild atelectasis in the lower lung zones and retraction her dialysis catheter with the tip now in the right brachiocephalic vein. She received furosemide 40 mg IV and she is being admitted in this setting for further treatment and evaluation. Review of Systems Review of Systems: 12 systems were reviewed and are negative except for as per HPI. [facility] Past Medical History Medical History (Updated 02/17/24 @ 23:09 by Makayla Ham PA-C) Chronic anemia Chronic anticoagulation Chronic kidney disease Combined systolic and diastolic congestive heart failure Coronary artery disease Diabetic neuropathy Hyperlipidemia Hypertension Insulin dependent type 2 diabetes mellitus Neurogenic bladder Osteomyelitis Paroxysmal atrial fibrillation Right-sided heart failure Surgical History Surgical History History of amputation of toe History of coronary artery bypass graft History of hysterectomy History of right below knee amputation Family History Family History Sibling Thymus cancer Diabetes mellitus All 4 siblings Lung cancer, lower lobe Melanoma Lymph edema Mother Family history of emphysema Father Acute myocardial infarction Social History Social History (Updated 02/17/24 @ 23:05 by Makayla Ham PA-C) Social History: Surrogate medical decision maker: Trung Mcgrath, daughter. Code status: Full code. Smoking packs per day: 1 Smoking cigarettes per day: 20.0 Years smoked: 30 Smoking pack-years: 30.00 Smoking status: Former smoker Tobacco type: cigarettes Second hand tobacco smoke exposure: Yes ( smokes) Smoking end date: 02/24/07 Alcohol intake: never Substance use: never Substance use type: does not use Do You Feel Safe in your Home?: Yes Lack of Transportation: No Lack of Food: Never True Current Housing: I Have Housing Concerned About Future Housing: No Difficulty Paying Gas/Electric Bills: No Difficulty Paying for Meds: No Currently Unemployed: No Education: High School Diploma/GED Difficulty w/ Childcare or Family Care: No Spiritual care concerns: No Meds Home Medications and Allergies Home Medications Medication Instructions Recorded Confirmed Type atorvastatin 40 mg tablet 40 mg PO DAILY 12/09/21 02/17/24 History hydroxyzine pamoate 50 mg capsule 50 mg PO TID PRN Anxiety 03/30/22 02/17/24 History levothyroxine 125 mcg tablet 137 mcg PO DAILY 04/17/22 02/17/24 History insulin pen,reusable,BT,lispro 12/14/22 02/17/24 History (InPen (for Humalog) Blue subcutaneous) trazodone 50 mg tablet 50 mg PO HS 10/11/23 02/17/24 History apixaban 5 mg tablet (Eliquis) 2.5 mg PO BID #30 tabs 12/03/23 02/17/24 Rx famotidine 40 mg tablet 20 mg PO DAILY #90 tabs 12/03/23 02/17/24 Rx insulin aspart U-100 100 unit/mL 3 - 6 unit subcut TIDWM #30 mL 12/03/23 02/17/24 Rx subcutaneous solution (Novolog U-100 Insulin aspart) insulin degludec 100 unit/mL (3 8 unit (0.08 mL) subcut HS #3 mL 12/03/23 02/17/24 Rx mL) subcutaneous pen (Tresiba FlexTouch U-100 insulin) amlodipine 2.5 mg tablet 2.5 mg PO DAILY 02/17/24 02/17/24 History bumetanide 1 mg tablet 1 mg PO BID 02/17/24 02/17/24 History Allergies Allergy/AdvReac Type Severity Reaction Status Date / Time semaglutide [From Ozempic] AdvReac Unknown Verified 11/19/23 09:49 Vital Signs Vital Signs - 24 hr 02/17/24 14:03 02/17/24 14:15 02/17/24 14:17 Temperature 97.6 F Pulse Rate 90 90 Respiratory Rate 18 18 18 Blood Pressure 165/102 H 158/102 H Pulse Oximetry 97 98 98 Oxygen Delivery Room Air 02/17/24 16:21 02/17/24 18:21 Temperature Pulse Rate 85 84 Respiratory Rate 20 19 Blood Pressure 158/88 H 158/94 H Pulse Oximetry 97 97 Oxygen Delivery Exam Narrative: General: Chronically ill female appearing older than her stated age to the semi-[place] position in bed. Weight: 111.8 kg. BMI: 35.4. HEENT: She is wearing a patch over her right eye. Left pupil is reactive. Moist mucous membranes. Neck: Supple. No significant jugular venous distention. Respiratory: Respirations are nonlabored. Fine crackles at the bases otherwise lungs are clear to auscultation. Cardiovascular: Irregularly irregular rate and rhythm with S1-S2. Systolic murmur at the left sternal border. Chest: Dialysis catheter in the right chest. Gastrointestinal: Abdomen is soft, nontender, and nondistended with positive bowel sounds. Skin: Warm and dry. Multiple shallow ulcerations of varying sizes and scattered excoriations on all extremities. Left lower extremity is erythematous but not warm or tender to touch. Extremities: No cyanosis or clubbing. Left leg is significantly edematous and she also has edema of the right [id number] amputation. No palpable knots or cords. Radial and left pedal pulse are palpable. Neurological: Alert. Cranial nerves 2-12 are grossly intact. No gross focal deficits to casual conversation. Psychiatric: Pleasant and cooperative with appropriate mood. Slightly anxious. H&P: Results Labs Labs: Short CBC 02/17/24 Range/Units 15:56 WBC 6.5 (4.5-10.0) K/mm3 Hgb 10.3 L (12.0-15.0) g/dL Hct 33.5 L (37.0-47.0) % Plt Count 234 (150-375) k/mm3 BMP 02/17/24 15:56 Sodium 139 Potassium 4.7 Chloride 110 H Carbon Dioxide 20 L BUN 51 H D Creatinine 2.30 H Glucose 211 H Calcium 8.6 Liver Function 02/17/24 Range/Units 15:56 Total Bilirubin 0.9 (0.2-1.3) mg/dL AST 20 (14-36) U/L ALT 14 (6-35) U/L Alkaline Phosphatase 180 H (38-126) U/L Albumin 3.6 (3.5-5.1) g/dL Impressions Chest X-Ray 02/17/24 15:01 IMPRESSION: 1. Mild atelectasis in the lower lung zones. 2. Retraction of the central line, now with tip in the right brachiocephalic vein. Assessment and Plan Assessment and plan (1) Fluid overload: Code(s): E87.70 - Fluid overload, unspecified Status: Acute (2) Chronic kidney disease: Code(s): N18.9 - Chronic kidney disease, unspecified Status: Acute (3) Combined systolic and diastolic congestive heart failure: Code(s): I50.40 - Unspecified combined systolic (congestive) and diastolic (congestive) heart failure Status: Acute (4) Right-sided heart failure: Code(s): I50.810 - Right heart failure, unspecified Status: Acute (5) Hypertension: Code(s): I10 - Essential (primary) hypertension Status: Chronic (6) Hypothyroidism: Code(s): E03.9 - Hypothyroidism, unspecified Status: Acute (7) Insulin dependent type 2 diabetes mellitus: Code(s): E11.9 - Type 2 diabetes mellitus without complications; Z79.4 - buttermaker continuous churn (current) use of insulin Status: Acute (8) Neurogenic bladder: Code(s): N31.9 - Neuromuscular dysfunction of bladder, unspecified Status: Acute Plan The patient presented to the emergency department for evaluation of shortness of breath and edema as detailed in HPI. Labs, imaging, EKG, and all reports were personally reviewed. She has been and dialysis since November but her renal function improved and she has not been dialyzed for a little over a week. Unfortunately she is now symptomatic with increasing edema and shortness of breath. Dialysis catheter has migrated and the tip is now in the right brachiocephalic vein. Await recommendations from Nephrology. Blood pressure was reviewed it is reasonable. She is in atrial fibrillation and is rate controlled. Hold apixaban for now as she may need to have another dialysis catheter placed. Continue basal insulin. Initiate sliding scale insulin, Accu-Cheks, and hypoglycemic protocol. Patient typically empties her bladder 4 times a day via straight catheterization. Her home medications will be reviewed and resumed as appropriate. Findings and treatment plan were discussed with the patient. Questions were solicited and answered to satisfaction. The patient's medical management will be taken over by the hospitalist team in a.m. Quality VTE Prophylaxis VTE prophylaxis: mechanical ordered If No VTE Prophylaxis Answer both mechanical and pharmacologic: Reason no pharmacologic proph: medical contraindication (hold apixaban as she may need a new catheter placed) The patient has been admitted under observation status. Hospitalist [facility] Advance Care Plan I have confirmed that the patient's Advanced Care Plan is present, code status is documented, or surrogate decision maker is listed in patient medical record.: Yes Medication Reconciliation I have utilized all available resources to obtain, update and review the patients current medications (includes all prescriptions, OTC, herbals, cannabis, and nutritional supplements).: Yes
--- NOTE | 2024-02-17 20:56 | ADMGEN ---
This patient, Kylie Marquez, was admitted to Medical Room 349-01. Patient/family oriented to hospital policies and general routines including ID bracelet, bed and alarms, visiting hours, pain management, procedures, bathroom and other care routines, personal items, smoking policy, room service/diet, and visiting hours. Information on how to activate the Rapid Response Team has been discussed. Patient/Family are encouraged to report perceived risks to care and to ask questions if they do not understand what they are told or what they should do.
[2024-02-18] VITALS (9 sets, daily range): BP systolic 126–138; BP diastolic 70–85; PULSE 79–88; RESP 16–20; TEMP 36.3–36.4; O2SAT 93–98; BMI 35.4
[2024-02-18 02:44] LABS: Hemoglobin A1C 6.7 % (<5.7)
[2024-02-18] MEDS: hydrOXYzine pamoate 25 MG CAPSULE 50 MG PO ×2 (05:09→17:06)
[2024-02-18] MEDS: LEVOTHYROXINE SODIUM 112 MCG TABLET PO (05:51)
[2024-02-18] MEDS: LEVOTHYROXINE SODIUM 25 MCG TABLET PO (05:51)
[2024-02-18 05:58] LABS: Hematocrit 32.1 % (37.0-47.0); Hemoglobin 9.8 g/dL (12.0-15.0); Mean Corpuscular HGB Conc 30.5 g/dl (32-36); Mean Corpuscular Hemoglobin 28.7 pg (26-34); Mean Corpuscular Volume 94.1 fl (80-100); Mean Platelet Volume 10.2 fl (7.4-10.4); Platelet Count Result 236 k/mm3 (150-375); Red Blood Count 3.41 M/mm3 (4.2-5.4); Red Cell Distribution Width 18.6 % (11.5-14.5); White Blood Count 5.9 K/mm3 (4.5-10.0)
[2024-02-18 06:21] LABS: Anion Gap 6 mmol/L (4-12); Blood Urea Nitrogen 51 mg/dL (7-17); Calcium 8.7 mg/dL (8.4-10.2); Carbon Dioxide 20 mmol/L (22-30); Chloride 113 mmol/L (98-107); Estimated CRCL calculation 32 ml/min; Estimated Glomerular Filt Rate 23; Glucose 184 mg/dL (65-110); Magnesium 1.9 mg/dL (1.6-2.3); Potassium 4.7 mmol/L (3.4-5.0); Sodium 139 mmol/L (137-145)
[2024-02-18 06:35] LABS: Glucose Point of Care 197 mg/dl (65-105)
[2024-02-18 07:49] LABS: Glucose Point of Care 161 mg/dl (65-105)
[2024-02-18] MEDS: ATORVASTATIN 40 MG TABLET PO (08:15)
[2024-02-18] MEDS: FAMOTIDINE 20 MG TABLET PO (08:15)
[2024-02-18] MEDS: amLODIPine BESYLATE 2.5 MG TABLET PO (08:15)
[2024-02-18] MEDS: BUMETANIDE INJ 1 MG/4 ML VIAL 1.5 MG IV PUSH ×2 (08:16→17:06)
--- NOTE | 2024-02-18 09:08 | P.PNIM_ITS ---
Progress Note: A&P Assessment and Plan (1) Anasarca: Code(s): R60.1 - Generalized edema Status: Acute Assessment and Plan: patient went increased swelling LLE/ABD increased shortness of breath has not been dialyzed for over a week * IV Bumex b.i.d. * will likely need dialyzed * daily weights * Orr catheter for strict I&Os (2) Chronic kidney disease on chronic dialysis: Code(s): N18.6 - End stage renal disease; Z99.2 - Dependence on renal dialysis Status: Acute Assessment and Plan: on dialysis but has not received dialysis for week was discontinued outpatient catheter placement has migrated to the right brachiocephalic vein * IV Bumex b.i.d. * nephrology consulted for further recommendations may need to surgery for central venous catheter * Likely need dialysis even with stable CR at 2.2 * Will attempt medical management with diuretics if no improvement will likely need to resume Dialysis per nephorology * Avoid nephrotoxic drugs. * Monitor antihypertensive drug therapy. * Avoid NSAIDs. * Routine CMP monitoring GFR. * Monitor electrolytes especially potassium. * Antibiotic doses depending on creatinine clearance. * Pharmacy does medications. (3) Combined systolic and diastolic congestive heart failure: Code(s): I50.40 - Unspecified combined systolic (congestive) and diastolic (congestive) heart failure Status: Acute Assessment and Plan: * the anasarca appears to be more related to her renal disease without dialysis for a week * BNP [id number] * IV Bumex b.i.d. * LAst Echo 11/2023 EF 40-45%/Severe TR, Moderate MR and pulmonary hypertension * EKG AFIB * chest x-ray showing mild atelectasis * Lipid panel, TSH, liver function test. * Daily weight. * strict I&Os * Fall risk assessment. (4) Neurogenic bladder: Code(s): N31.9 - Neuromuscular dysfunction of bladder, unspecified Status: Acute Assessment and Plan: patient typically straight caths herself at home * patient currently on IV Bumex will place Orr catheter for strict I&Os and reduce risk of infection from increased straight cathing (5) Complication associated with peripherally inserted central catheter: Code(s): T82.9XXA - Unspecified complication of cardiac and vascular prosthetic device, implant and graft, initial encounter Status: Acute Assessment and Plan: * CXR shows migration of catheter tip to the right brachiocephalic vein * waiting on nephrology recommendations may need surgery consult for replacement if need for dialysis (6) Paroxysmal atrial fibrillation: Code(s): I48.0 - Paroxysmal atrial fibrillation Status: Chronic Assessment and Plan: * rate controlled * resume patient's Eliquis/but need to hold for possible surgery (7) Hypothyroidism: Code(s): E03.9 - Hypothyroidism, unspecified Status: Acute Assessment and Plan: * TSH >17 * T4 pending * resume levothyroxine (8) Diabetes: Code(s): E11.9 - Type 2 diabetes mellitus without complications Status: Chronic Assessment and Plan: * Accu-Cheks a.cMarci 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, unspecified lower leg, subsequent encounter Status: Acute (10) Anemia of chronic disease: Code(s): D63.8 - Anemia in other chronic diseases classified elsewhere Status: Acute Assessment and Plan: * Likely secondary to CKD * no overt bleeding * Hgb 9.7 * continue to monitor will transfuse PRBC if Hgb <7.0 Plan Code status: Full code per patient DVT prophylaxis: Eliquis Stress ulcer prophylaxis: Protonix 40 daily PT/OT notes: PT/OT pending Disposition: patient was admitted to the medical unit due to fluid overload will continue with IV Bumex per Nephrology x2 days to determine if patient needs to resume dialysis if so patient will need replacement dialysis catheter and removal of old one. Time Spent With Patient Time with patient: 15 - 25 minutes Subjective Date/time seen: 02/18/24 09:08 Interval history: Patient is a 68-year-old female who was admitted to the medical unit for further evaluation treatment of fluid overload patient with history combined systolic and diastolic heart failure as well as end-stage renal disease who has not been dialyzed for over a week. 02/18/2024: Assumed Care Patient reports breathing easier today, denied CP, fever, chills, N/V. LLE blisters and erythema noted patient denied pain. Review of Systems Review of Systems: All systems reviewed & are unremarkable except as noted in HPI and below Exam Narrative: * GENERAL: acute on chronically ill appearing pleasant female Alert and orie nted x 3. No acute distress. * EYES: PERRLA * HEENT: Moist mucous membranes. * LUNGS: minimal crackles BLL to auscultation bilaterally. No accessory muscle use. * CARDIOVASCULAR: Irregularly irregular. No murmur. No JVD. S1-S2 * ABDOMEN: Soft, non tenderness and non-distended. No palpable masses. * EXTREMITIES: Left leg is significantly edematous and she also has edema of the right [id number] amputation and ABD. * SKIN: Multiple shallow ulcerations of varying sizes and scattered excoriations on all extremities. Left lower extremity is erythematous but not warm or tender to touch. Skin warm, dry. * NEUROLOGIC: No focal neurological deficits. CN II-XII grossly intact * PSYCHIATRIC: Appropriate mood and affect. Good judgement and insight. Objective Data Vital Signs Vital Signs: Vital Signs - 24 hr 02/17/24 14:03 02/17/24 14:15 02/17/24 14:17 Temperature 97.6 F Pulse Rate 90 90 Respiratory Rate 18 18 18 Blood Pressure 165/102 H 158/102 H Pulse Oximetry 97 98 98 Oxygen Delivery Room Air 02/17/24 16:21 02/17/24 18:21 02/17/24 19:32 Temperature Pulse Rate 85 84 88 Respiratory Rate 20 19 20 Blood Pressure 158/88 H 158/94 H 155/102 H Pulse Oximetry 97 97 97 Oxygen Delivery 02/17/24 19:54 02/17/24 20:07 02/17/24 20:57 Temperature 98.1 F Pulse Rate 88 88 88 Respiratory Rate 16 19 20 Blood Pressure 151/95 H 165/87 H 165/99 H Pulse Oximetry 94 96 98 Oxygen Delivery 02/18/24 00:00 02/18/24 00:00 02/18/24 04:00 Temperature Pulse Rate 88 83 83 Respiratory Rate 20 Blood Pressure Pulse Oximetry 98 Oxygen Delivery Room Air 02/18/24 06:00 Temperature 97.4 F L Pulse Rate 79 Respiratory Rate 18 Blood Pressure 138/85 Pulse Oximetry 93 Oxygen Delivery Intake/Output Intake/Output: Intake & Output 02/15/24 02/16/24 02/17/24 02/18/24 23:59 23:59 23:59 23:59 Intake Total 780 Output Total 2225 700 Balance -2225 80 Meds/Results Medications: Active Medications Generic Name Dose Route Start Last Admin Trade Name Freq PRN Reason Stop Dose Admin Atorvastatin Calcium 40 mg 02/18/24 09:00 02/18/24 08:15 Atorvastatin 40 Mg Tablet PO 40 mg DAILY SELMA Administration Bumetanide 1.5 mg 02/18/24 09:00 02/18/24 08:16 Bumetanide Inj 1 Mg/4 Ml Vial IV PUSH 1.5 mg BID SELMA Administration Dextrose 12.5 gm 02/17/24 23:23 Dextrose 50% 25 Gm/50 Ml Syringe IV PUSH PRN PRN Hypoglycemia Protocol Famotidine 20 mg 02/18/24 09:00 02/18/24 08:15 Famotidine 20 Mg Tablet PO 20 mg DAILY SELMA Administration Glucagon 1 mg 02/17/24 23:23 Glucagon For Inj 1 Mg Vial IM PRN PRN Hypoglycemia Protocol Glucose 15 gm 02/17/24 23:23 Glucose Oral Gel 15 Gm Of Glucse In 37.5 Gm Tube PO PRN PRN Hypoglycemia Protocol Hydroxyzine Pamoate 50 mg 02/17/24 23:56 02/18/24 05:09 Hydroxyzine Pamoate 25 Mg Capsule PO 50 mg TID PRN Administration Anxiety Dextrose 1,000 mls @ 100 mls/hr 02/17/24 23:23 Dextrose 5% 1,000 Ml IVPB PRN PRN Hypoglycemia Protocol Insulin Aspart 3 - 6 units 02/18/24 08:00 02/18/24 08:13 Insulin Aspart (*Bkc) 100 Units/Ml [facility] Protocol Insulin Aspart 1 - 3 units 02/18/24 21:00 Insulin Aspart (*Bkc) 100 Units/Ml SUB-Q [facility] Protocol Insulin Glargine 8 units 02/18/24 21:00 Insulin Glargine (Lantus) 1,000 Units/10 Ml Vial SUB-Q [facility] Levothyroxine Sodium 25 mcg 02/18/24 06:30 02/18/24 05:51 Levothyroxine Sodium 25 Mcg Tablet PO 25 mcg DAILY@0630 SELMA Administration Levothyroxine Sodium 112 mcg 02/18/24 06:30 02/18/24 05:51 Levothyroxine Sodium 112 Mcg Tablet PO 112 mcg DAILY@0630 [facility] Administration Trazodone HCl 50 mg 02/18/24 21:00 Trazodone Hcl 50 Mg Tablet PO [facility] Radiology Results: ITS Impressions Chest X-Ray 02/17/24 15:01 IMPRESSION: 1. Mild atelectasis in the lower lung zones. 2. Retraction of the central line, now with tip in the right brachiocephalic vein. Labs Labs: Laboratory Results - last 24 hr 02/17/24 02/17/24 02/18/24 15:56 23:24 03:51 WBC 6.5 RBC 3.55 L Hgb 10.3 L Hct 33.5 L MCV 94.4 MCH 29.0 MCHC 30.7 L RDW 18.5 H Plt Count 234 MPV 9.9 Immature Gran % (Auto) 0.3 Neut % (Auto) 70.4 Lymph % (Auto) 21.2 Mcdowell % (Auto) 5.3 Eos % (Auto) 2.0 Baso % (Auto) 0.8 Lymph # (Auto) 1.37 Mcdowell # (Auto) 0.3 Eos # (Auto) 0.1 Baso # (Auto) 0.1 Abs Immat Gran (auto) 0.02 Absolute Neuts (auto) 4.6 Absolute Nucleated RBC 0.000 Nucleated RBC % 0.0 Sodium 139 Potassium 4.7 Chloride 110 H Carbon Dioxide 20 L Anion Gap 9 BUN 51 H D Creatinine 2.30 H Estim Creat Clear Calc 27 Estimated GFR 21 L Glucose 211 H POC Capillary Glucose 197 H Hemoglobin A1c 6.7 H Calcium 8.6 Magnesium Total Bilirubin 0.9 AST 20 ALT 14 Alkaline Phosphatase 180 H NT-Pro-B Natriuret Pep 69702 H Total Protein 7.0 Albumin 3.6 TSH (Reflex) Influenza A (RT-PCR) Negative Influenza B (RT-PCR) Negative RSV (RT-PCR) Negative SARS-CoV-2 RNA (RT-PCR) Negative 02/18/24 02/18/24 05:29 07:46 WBC 5.9 RBC 3.41 L Hgb 9.8 L Hct 32.1 L MCV 94.1 MCH 28.7 MCHC 30.5 L RDW 18.6 H Plt Count 236 MPV 10.2 Immature Gran % (Auto) Neut % (Auto) Lymph % (Auto) Mcdowell % (Auto) Eos % (Auto) Baso % (Auto) Lymph # (Auto) Mcdowell # (Auto) Eos # (Auto) Baso # (Auto) Abs Immat Gran (auto) Absolute Neuts (auto) Absolute Nucleated RBC Nucleated RBC % Sodium 139 Potassium 4.7 Chloride 113 H Carbon Dioxide 20 L Anion Gap 6 BUN 51 H Creatinine 2.10 H Estim Creat Clear Calc 32 Estimated GFR 23 L Glucose 184 H POC Capillary Glucose 161 H Hemoglobin A1c Calcium 8.7 Magnesium 1.9 Total Bilirubin AST ALT Alkaline Phosphatase NT-Pro-B Natriuret Pep Total Protein Albumin TSH (Reflex) 17.600 H Influenza A (RT-PCR) Influenza B (RT-PCR) RSV (RT-PCR) SARS-CoV-2 RNA (RT-PCR) Quality VTE Prophylaxis VTE prophylaxis: pharmacologic ordered -Patient's previous records reviewed on admission -ER notes reviewed in detail on admission -discussed all findings and current treatment plan with patient/Family/POA -Consultations reviewed for recommendations -Patient's disposition for safe discharge discussed with wrapper caser Dictation performed by [employer] direct speech recognition software, therefore nursing support worker variants and typographical errors may occur. Hospitalist MIPS Advance Care Plan I have confirmed that the patient's Advanced Care Plan is present, code status is documented, or surrogate decision maker is listed in patient medical record.: Yes Medication Reconciliation I have utilized all available resources to obtain, update and review the patients current medications (includes all prescriptions, OTC, herbals, cannabis, and nutritional supplements).: Yes The patient is not eligible for med reconciliation; the patient is in a emergent medical situation where delaying treatment would jeopardize the patients health.: No
--- NOTE | 2024-02-18 11:07 | P.CONNP_ITS ---
Assessment and Plan Assessment and plan (1) Chronic kidney disease, stage IV (severe): Code(s): N18.4 - Chronic kidney disease, stage 4 (severe) Status: Chronic Assessment and Plan: * new baseline creatinine seems ro run around 1.7 - 2.3mg/dl * due to due to biopsy proven diabetic nephropathy/nephrosclerosis (biopsies done in November 2021 and November 2023) in conjunction with vascular disease and leftovers from previous SHREYA/ARF * RENAL BIOPSY done (11/24/23): class III advanced nodular diabetic glomerulosclerosis with ~ 60% interstitial fibrosis and tubular atrophy * creatinine had worsned to 4.9mg/dl during November 2023 hospitalization complicated by anasarca/volume overload, diminished urine output despite high dose diuretic therapy, metabolic acidosis, and hyperkalemia which led to initiation of renal replacement therapy/dialysis * [employer]/dialysis stopped a bout a week ago prior to admission due to evidence of renal recovery * responsive to IV diuretic therapy currently with relative stability in renal function * continue to follow trend of repeat labs and UOP (2) Anasarca: Code(s): R60.1 - Generalized edema Status: Acute Assessment and Plan: * as noted by physical exam and symptoms * localized to LEs and abdominal with a respiratory component as well * good diuresis noted with IV bumex * follow daily weights, I/Os, and respiratory status * dialysis remains an option if she fails conservative therapy (3) Displacement of central venous catheter (CVC): Code(s): T82.528A - Displacement of other cardiac and vascular devices and implants, initial encounter Status: Acute Assessment and Plan: * as noted by admission CXR regarding tunneled HD catheter * if further dialysis needed, it will likely need to replaced * however, if she responds to medical therapy with stability in renal function, then it can be removed (4) Combined systolic and diastolic congestive heart failure: Code(s): I50.40 - Unspecified combined systolic (congestive) and diastolic (congestive) heart failure Status: Acute Assessment and Plan: * suspect playing a role with volume status * last Echo on 11/2023 noted: * EF 40-45% * severe TR * moderate MR * pulmonary hypertension * continue diuresis * follow weight and I/Os (5) Chronic anemia: Code(s): D64.9 - Anemia, unspecified Status: Chronic Assessment and Plan: * suspect related to CKD * s/p EGD and colonoscopy on last hospitalization - no active bleeding lesions * dose with Retacrit while hospitalized * follow trend of H/H (6) Paroxysmal atrial fibrillation: Code(s): I48.0 - Paroxysmal atrial fibrillation Status: Chronic Assessment and Plan: * rate control strategy * Eliquis on hold in case of possible/needed surgery/procedures (7) Hypertension: Code(s): I10 - Essential (primary) hypertension Status: Chronic Assessment and Plan: * reasonable control at this time * follow trend of hemodynamics (8) Type 2 diabetes mellitus, uncontrolled, with renal complications: Status: Chronic Assessment and Plan: * follow accu-cheks * glycemic control per hospitalists I will continue to follow the patient with you while she remains hospitalized and make further recommendations as deemed necessary. Thank you for allowing me to participate in the care of this patient. History of Present Illness Reason for Consult Consult date: 02/18/24 Reason for consult: chronic renal failure Chief Complaint Chief complaint: Orthopnea, fluid overload History of Present Illness Narrative: The patient is a 68-year-old female with an extensive past medical history as outlined below who presented to [facility] Emergency Room for further evaluation shortness of breath and worsening lower extremity edema. The patient was at the [facility] clinic today being fitted for a prosthesis for her right lower extremity. When she attempted to play down flat she developed significant shortness of breath. Upon further questioning, she also reports a noticeable increase in swelling in her lower extremities as well. She denies any history of fevers, chills, diaphoresis, cough, chest pain, palpitations, nausea, vomiting, dysuria, or dizziness/lightheadedness. Given the symptoms and particularly the worsening shortness of breath when laying flat, she was transferred to the emergency room for further assessment. For workup and evaluation emergency room demonstrated the patient be hemodynamically stable and afebrile. Routine blood tests were done which demonstrated a normal white blood cell count, relative anemia with hemoglobin of 10.3, and labs consistent with her known history of kidney disease with a BUN of 51 and creatinine of 2.3 with no critical electrolyte abnormalities. [place]BNP was [address] . Her chest x-ray showed mild atelectasis in the lower lung zones and retraction of her dialysis catheter the tip now in the right brachiocephalic vein. Her exam was significant for bibasilar crackles and significant lower extremity edema particularly in her left lower extremity but also noted on her right BKA stump. She was also noted have multiple ulcerations and excoriations on her lower extremities as well thought to be secondary to her frequent itching/scratching worsened by her anxiety. She was given a dose of IV Lasix and subsequently admitted to the hospital for further evaluation and therapy. This is a 68-year-old female with left and right ventricular systolic dysfunction and diastolic dysfunction, paroxysmal atrial fibrillation on anticoagulation, coronary artery disease, hypertension, hyperlipidemia, hypothyroidism, insulin-dependent diabetes, neurogenic bladder, and chronic kid rafael disease who was started on dialysis and November although her renal function is improving and she has not been dialyzed for over a week who presented to the emergency department for evaluation of shortness of breath. The patient provides the following history. She was at the [facility] today being fitted for prosthesis Renal consultation was requested due to her chronic kidney disease in association with volume overload/anasarca. The patient is well known to me as I follow her chronic kidney disease. Her chronic kidney disease is secondary to biopsy-proven diabetic nephropathy (renal biopsy done x 2). However, her history with regard to kidney diseases somewhat complicated by events in the last several months. She was recently hospitalized at [facility] in July of 2019 for with infection in her right lower extremity that progressed to the point that she required a right below-knee amputation for control the infection and limb salvage. She was subsequently discharged to a nursing facility for ongoing rehab and medical care but labs done in September of 2023 showed her kidney function had declined significantly. At baseline, her creatinine was running around 1.1-1.6 mg/dL for several years but then repeat labs in September of 2023 showed a creatinine up to 2.7 mg/dL. As far as I am aware, her creatinine during that hospitalization [facility] was relatively stable. She was then hospitalized here in November of 2023 with worsening of her renal f unction in association with volume overload. Unfortunately, aggressive IV diuretic therapy did not really optimize her fluid status and her renal function did not improve. She underwent a 2nd renal biopsy at that time it once again showed evidence of diabetic nephropathy and associated glomerulosclerosis. It was during that November 2023 hospitalization that she was initiated on renal replacement therapy / dialysis more so for optimization of her fluid status as she seemed to be somewhat diuretic resistant at that time. She was subsequently discharged with outpatient dialysis. However, about a week to 10 days ago, she started making more urine with diuretic therapy and her repeat labs/creatinine with holding dialysis appeared to be relatively stable around 1.7 - 2.1 mg/dL. She was continued on outpatient diuretic therapy and dialysis was discontinued on the assumption that her renal function had recovered sufficiently enough that she would not need any further dialytic intervention. She was scheduled to see me in the office next week to reassess her kidney function and volume status and potentially remove her tunneled dialysis catheter if her kidney function /volume status had remained stable but, as mentioned above, events led to her ER visit and subsequent admission. Since her admission to hospital, she has made significant urine output with IV diuretic therapy. Furthermore, she reports improvement in her shortness of breath and breathing but she still has significant lower extremity edema more so localized to her left lower extremity and right BKA stump. Her renal function actually appears relatively stable with IV diuretic therapy. Currently, at the time my evaluation, the patient does not appear to be in any acute distress. Review of Systems Review of Systems: As per HPI. [facility] Past Medical History Medical History (Updated 02/20/24 @ 09:13 by Florence White MD) Chronic anemia Chronic anticoagulation Chronic kidney disease Combined systolic and diastolic congestive heart failure Coronary artery disease Diabetic neuropathy Hyperlipidemia Hypertension Insulin dependent type 2 diabetes mellitus Neurogenic bladder Osteomyelitis Paroxysmal atrial fibrillation Right-sided heart failure Surgical History Surgical History History of amputation of toe History of coronary artery bypass graft History of hysterectomy History of right below knee amputation Family History Family History Sibling Thymus cancer Diabetes mellitus All 4 siblings Lung cancer, lower lobe Melanoma Lymph edema Mother Family history of emphysema Father Acute myocardial infarction Social History Social History (Updated 02/17/24 @ 23:05 by Makayla Ham PA-C) Social History: Surrogate medical decision maker: Trung Mcgrath, daughter. Code status: Full code. Smoking packs per day: 1 Smoking cigarettes per day: 20.0 Years smoked: 30 Smoking pack-years: 30.00 Smoking status: Former smoker Tobacco type: cigarettes Second hand tobacco smoke exposure: Yes ( smokes) Smoking end date: 02/24/07 Alcohol intake: never Substance use: never Substance use type: does not use Do You Feel Safe in your Home?: Yes Lack of Transportation: No Lack of Food: Never True Current Housing: I Have Housing Concerned About Future Housing: No Difficulty Paying Gas/Electric Bills: No Difficulty Paying for Meds: No Currently Unemployed: No Education: High School Diploma/GED Difficulty w/ Childcare or Family Care: No Spiritual care concerns: No Meds Home Medications and Allergies Home Medications Medication Instructions Recorded Confirmed Type atorvastatin 40 mg tablet 40 mg PO DAILY 12/09/21 02/17/24 History hydroxyzine pamoate 50 mg capsule 50 mg PO TID PRN Anxiety 03/30/22 02/17/24 History levothyroxine 125 mcg tablet 137 mcg PO DAILY 04/17/22 02/17/24 History insulin pen,reusable,BT,lispro 12/14/22 02/17/24 History (InPen (for Humalog) Blue subcutaneous) trazodone 50 mg tablet 50 mg PO HS 10/11/23 02/17/24 History apixaban 5 mg tablet (Eliquis) 2.5 mg PO BID #30 tabs 12/03/23 02/17/24 Rx famotidine 40 mg tablet 20 mg PO DAILY #90 tabs 12/03/23 02/17/24 Rx insulin aspart U-100 100 unit/mL 3 - 6 unit subcut TIDWM #30 mL 12/03/23 02/17/24 Rx subcutaneous solution (Novolog U-100 Insulin aspart) insulin degludec 100 unit/mL (3 8 unit (0.08 mL) subcut HS #3 mL 12/03/23 02/17/24 Rx mL) subcutaneous pen (Tresiba FlexTouch U-100 insulin) amlodipine 2.5 mg tablet 2.5 mg PO DAILY 02/17/24 02/17/24 History bumetanide 1 mg tablet 1 mg PO BID 02/17/24 02/17/24 History Allergies Allergy/AdvReac Type Severity Reaction Status Date / Time semaglutide [From Ozempic] AdvReac Unknown Verified 11/19/23 09:49 Vital Signs Vital Signs Temp Pulse Resp BP Pulse Ox O2 Del Method 02/18/24 06:00 97.4 F L 79 18 138/85 93 02/18/24 04:00 83 02/18/24 00:00 83 02/18/24 00:00 88 20 98 Room Air 02/17/24 20:57 98.1 F 88 20 165/99 H 98 02/17/24 20:07 88 19 165/87 H 96 02/17/24 19:54 88 16 151/95 H 94 02/17/24 19:32 88 20 155/102 H 97 02/17/24 18:21 84 19 158/94 H 97 02/17/24 16:21 85 20 158/88 H 97 02/17/24 14:17 90 18 158/102 H 98 02/17/24 14:15 18 98 02/17/24 14:03 97.6 F 90 18 165/102 H 97 Room Air Exam Narrative: GENERAL APPEARANCE: well developed/well nourished female in no acute distress HEENT: normocephalic, atraumatic, normal conjunctiva and sclera, nares patient NECK: no lymphadenopathy, thyromegaly, or JVD MOUTH: normal lips, teeth, and gums CARDIOVASCULAR: IRRR, normal S1 and S2, no rub RESPIRATORY: clear anteriorly ABDOMEN: soft, nontender, nondistended, positive bowel sounds present EXTREMITIES: no evidence of cyanosis, clubbing, 3+ edema; right BKA; left 2 - 4 toe amputations NEUROLOGICAL: alert and oriented x 3; generalized weakness noted SKIN: ulcerations and wound noted on left LE Results Lab Results 02/20/24 06:27 02/20/24 06:27 Lab results: Most recent lab results Calcium 8.7 mg/dL (8.4-10.2) 02/18/24 05:29 Magnesium 1.9 mg/dL (1.6-2.3) 02/18/24 05:29
[2024-02-18 11:48] LABS: Glucose Point of Care 143 mg/dl (65-105)
[2024-02-18 12:31] LABS: Free T4 Free Thyroxine Reflex 1.21 ng/dL (0.78-2.19)
[2024-02-18 13:13] LABS: Total Triiodothyronine (T3) 0.72 NG/ML (0.97-1.69)
[2024-02-18 16:49] LABS: Glucose Point of Care 122 mg/dl (65-105)
[2024-02-18 20:48] LABS: Glucose Point of Care 156 mg/dl (65-105)
[2024-02-18] MEDS: traZODone HCL 50 MG TABLET PO (21:42)
[2024-02-18] MEDS: INSULIN GLARGINE (LANTUS) 1,000 UNITS/10 ML VIAL 8 UNITS SUB-Q (21:42)
[2024-02-19] VITALS (11 sets, daily range): BP systolic 103–140; BP diastolic 51–67; PULSE 67–88; RESP 16–18; TEMP 36.2–36.5; O2SAT 94–96
[2024-02-19] MEDS: hydrOXYzine pamoate 25 MG CAPSULE 50 MG PO ×2 (03:08→15:00)
[2024-02-19] MEDS: LEVOTHYROXINE SODIUM 25 MCG TABLET PO (05:36)
[2024-02-19] MEDS: LEVOTHYROXINE SODIUM 112 MCG TABLET PO (05:36)
[2024-02-19 06:20] LABS: Basophils Absolute Auto 0.1 K/mm3 (0.0-0.1); Eosinophils Absolute Auto 0.2 K/mm3 (0-0.3); Eosinophils Percent Auto 3.1 % (0-4.4); Hematocrit 29.6 % (37.0-47.0); Hemoglobin 8.9 g/dL (12.0-15.0); Immature Granulocyte Absolute 0.01 K/mm3 (0.00-0.031); Immature Granulocyte Percent A 0.2 % (0-0.5); Lymphocytes Absolute Auto 1.17 K/mm3 (0.9-3.2); Lymphocytes Percent Auto 22.3 % (18.3-44.2); Mean Corpuscular HGB Conc 30.1 g/dl (32-36); Mean Corpuscular Volume 96.4 fl (80-100); Mean Platelet Volume 10.6 fl (7.4-10.4); Monocytes Absolute Auto 0.4 K/mm3 (0.1-0.6); Monocytes Percent Auto 8.4 % (2.6-8.5); Neutrophils Absolute Auto 3.4 K/mm3 (1.3-6.7); Platelet Count Result 214 k/mm3 (150-375); Red Blood Count 3.07 M/mm3 (4.2-5.4); Red Cell Distribution Width 18.5 % (11.5-14.5); White Blood Count 5.2 K/mm3 (4.5-10.0)
[2024-02-19 06:25] LABS: Alanine Aminotransferase 11 U/L (6-35); Albumin Level 2.9 g/dL (3.5-5.1); Alkaline Phosphatase 124 U/L (38-126); Anion Gap 3 mmol/L (4-12); Aspartate Amino Transferase 14 U/L (14-36); Bilirubin,Total 0.7 mg/dL (0.2-1.3); Blood Urea Nitrogen 48 mg/dL (7-17); Calcium 8.3 mg/dL (8.4-10.2); Carbon Dioxide 21 mmol/L (22-30); Chloride 113 mmol/L (98-107); Estimated CRCL calculation 31 ml/min; Estimated Glomerular Filt Rate 22; Glucose 108 mg/dL (65-110); Magnesium 1.9 mg/dL (1.6-2.3); Phosphorus 4.6 mg/dL (2.5-4.5); Potassium 4.5 mmol/L (3.4-5.0); Sodium 137 mmol/L (137-145)
[2024-02-19 08:22] LABS: Glucose Point of Care 82 mg/dl (65-105)
[2024-02-19] MEDS: BUMETANIDE INJ 1 MG/4 ML VIAL IV PUSH ×2 (09:18→18:06)
[2024-02-19] MEDS: FAMOTIDINE 20 MG TABLET PO (09:19)
[2024-02-19] MEDS: ATORVASTATIN 40 MG TABLET PO (09:19)
[2024-02-19] MEDS: EPOETIN ALFA-EPBX 20,000 UNITS/ML VIAL 20000 UNITS SUB-Q (09:31)
[2024-02-19 12:33] LABS: Glucose Point of Care 106 mg/dl (65-105)
--- NOTE | 2024-02-19 13:20 | P.PNIM_ITS ---
Progress Note: A&P Assessment and Plan (1) Anasarca: Code(s): R60.1 - Generalized edema Status: Acute Assessment and Plan: patient went increased swelling LLE/ABD increased shortness of breath has not been dialyzed for over a week * IV Bumex b.i.d. * will likely need dialyzed * daily weights * Orr catheter for strict I&Os (2) Chronic kidney disease on chronic dialysis: Code(s): N18.6 - End stage renal disease; Z99.2 - Dependence on renal dialysis Status: Acute Assessment and Plan: on dialysis but has not received dialysis for week was discontinued outpatient catheter placement has migrated to the right brachiocephalic vein * IV Bumex b.i.d. * nephrology consulted for further recommendations may need to surgery for central venous catheter * Likely need dialysis even with stable CR at 2.2 * Will attempt medical management with diuretics if no improvement will likely need to resume Dialysis per nephorology * Avoid nephrotoxic drugs. * Monitor antihypertensive drug therapy. * Avoid NSAIDs. * Routine CMP monitoring GFR. * Monitor electrolytes especially potassium. * Antibiotic doses depending on creatinine clearance. * Pharmacy does medications. (3) Combined systolic and diastolic congestive heart failure: Code(s): I50.40 - Unspecified combined systolic (congestive) and diastolic (congestive) heart failure Status: Acute Assessment and Plan: * the anasarca appears to be more related to her renal disease without dialysis for a week * BNP 13850 * IV Bumex b.i.d. * LAst Echo 11/2023 EF 40-45%/Severe TR, Moderate MR and pulmonary hypertension * EKG AFIB * chest x-ray showing mild atelectasis * Lipid panel, TSH, liver function test. * Daily weight. * strict I&Os * Fall risk assessment. (4) Neurogenic bladder: Code(s): N31.9 - Neuromuscular dysfunction of bladder, unspecified Status: Acute Assessment and Plan: patient typically straight caths herself at home * patient currently on IV Bumex will place Orr catheter for strict I&Os and reduce risk of infection from increased straight cathing (5) Complication associated with peripherally inserted central catheter: Code(s): T82.9XXA - Unspecified complication of cardiac and vascular prosthetic device, implant and graft, initial encounter Status: Acute Assessment and Plan: * CXR shows migration of catheter tip to the right brachiocephalic vein * waiting on nephrology recommendations may need surgery consult for replacement if need for dialysis (6) Paroxysmal atrial fibrillation: Code(s): I48.0 - Paroxysmal atrial fibrillation Status: Chronic Assessment and Plan: * rate controlled * resume patient's Eliquis/but need to hold for possible surgery (7) Hypothyroidism: Code(s): E03.9 - Hypothyroidism, unspecified Status: Acute Assessment and Plan: * TSH >17 * T4 pending * resume levothyroxine (8) Diabetes: Code(s): E11.9 - Type 2 diabetes mellitus without complications Status: Chronic Assessment and Plan: * Accu-Cheks a.cMarci 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, unspecified lower leg, subsequent encounter Status: Acute (10) Anemia of chronic disease: Code(s): D63.8 - Anemia in other chronic diseases classified elsewhere Status: Acute Assessment and Plan: * Likely secondary to CKD * no overt bleeding * Hgb 9.7 * continue to monitor will transfuse PRBC if Hgb <7.0 (11) Cellulitis of left leg: Code(s): L03.116 - Cellulitis of left lower limb Status: Acute Assessment and Plan: Erythema and swelling LLE with ulcerations no WBC * Started on oral Bactrim * Wound consulted Plan Code status: Full code per patient DVT prophylaxis: Eliquis Stress ulcer prophylaxis: Protonix 40 daily PT/OT notes: PT/OT pending Disposition: patient was admitted to the medical unit due to fluid overload will continue with IV Bumex per Nephrology x2 days to determine if patient needs to resume dialysis if so patient will need replacement dialysis catheter and removal of old one. Time Spent With Patient Time with patient: 15 - 25 minutes Subjective Date/time seen: 02/19/24 13:20 Interval history: Patient is a 68-year-old female who was admitted to the medical unit for further evaluation treatment of fluid overload patient with history combined systolic and diastolic heart failure as well as end-stage renal disease who has not been dialyzed for over a week. 02/19/2024: Assumed Care Patient responding well to IV diuretics states SOB has improved but still 2+ swelling to LLE. Cr. with small bump today. Patient denied any CP, N/V, fever chills or ABD pain. Review of Systems Review of Systems: 12 systems were reviewed and are negativ e except for as per HPI. All systems reviewed & are unremarkable except as noted in HPI and below Exam Narrative: * GENERAL: acute on chronically ill appearing pleasant female Alert and oriented x 3. No acute distress. * EYES: PERRLA * HEENT: Moist mucous membranes. * LUNGS: minimal crackles BLL to auscultation bilaterally. No accessory muscle use. * CARDIOVASCULAR: Irregularly irregular. No murmur. No JVD. S1-S2 * ABDOMEN: Soft, non tenderness and non-distended. No palpable masses. * EXTREMITIES: Left leg is significantly edematous and she also has edema of the right [id number] amputation and ABD. * SKIN: Multiple shallow ulcerations of varying sizes and scattered excoriations on all extremities. Left lower extremity is erythematous but not warm or tender to touch. Skin warm, dry. * NEUROLOGIC: No focal neurological deficits. CN II-XII grossly intact * PSYCHIATRIC: Appropriate mood and affect. Good judgement and insight. Objective Data Vital Signs Vital Signs: Vital Signs - 24 hr 02/18/24 14:00 02/18/24 16:00 02/18/24 21:03 Temperature 97.3 F L 97.6 F Pulse Rate 80 80 86 Respiratory Rate 16 18 Blood Pressure 126/70 137/77 Pulse Oximetry 98 96 Oxygen Delivery Fraction of Inspired Oxygen 02/18/24 20:00 02/19/24 00:00 02/19/24 04:00 Temperature Pulse Rate 87 71 82 Respiratory Rate Blood Pressure Pulse Oximetry Oxygen Delivery Fraction of Inspired Oxygen 02/19/24 05:59 02/19/24 07:58 02/19/24 08:31 Temperature 97.2 F L Pulse Rate 79 Respiratory Rate 18 Blood Pressure 103/51 L 117/67 Pulse Oximetry 94 95 Oxygen Delivery Room Air Fraction of Inspired Oxygen 21 02/19/24 08:00 02/19/24 08:00 Temperature Pulse Rate 67 Respiratory Rate Blood Pressure Pulse Oximetry Oxygen Delivery Room Air Fraction of Inspired Oxygen Intake/Output Intake/Output: Intake & Output 02/16/24 02/17/24 02/18/24 02/19/24 23:59 23:59 23:59 23:59 Intake Total 1220 660 Output Total 2229 4075 1908 Balance -2226 -0824 -1240 Meds/Results Medications: Active Medications Generic Name Dose Route Start Last Admin Trade Name Freq PRN Reason Stop Dose Admin Atorvastatin Calcium 40 mg 02/18/24 09:00 02/19/24 09:19 Atorvastatin 40 Mg Tablet PO 40 mg DAILY SELMA Administration Bumetanide 1 mg 02/19/24 09:00 02/19/24 09:18 Bumetanide Inj 1 Mg/4 Ml Vial IV PUSH 1 mg BID SELMA Administration Dextrose 12.5 gm 02/17/24 23:23 Dextrose 50% 25 Gm/50 Ml Syringe IV PUSH PRN PRN Hypoglycemia Protocol Famotidine 20 mg 02/18/24 09:00 02/19/24 09:19 Famotidine 20 Mg Tablet PO 20 mg DAILY SELMA Administration Glucagon 1 mg 02/17/24 23:23 Glucagon For Inj 1 Mg Vial IM PRN PRN Hypoglycemia Protocol Glucose 15 gm 02/17/24 23:23 Glucose Oral Gel 15 Gm Of Glucse In 37.5 Gm Tube PO PRN PRN Hypoglycemia Protocol Hydroxyzine Pamoate 50 mg 02/17/24 23:56 02/19/24 03:08 Hydroxyzine Pamoate 25 Mg Capsule PO 50 mg TID PRN Administration Anxiety Dextrose 1,000 mls @ 100 mls/hr 02/17/24 23:23 Dextrose 5% 1,000 Ml IVPB PRN PRN Hypoglycemia Protocol Insulin Aspart 3 - 6 units 02/18/24 08:00 02/19/24 07:00 Insulin Aspart (*Bkc) 100 Units/Ml SUB-Q Not Given TIDWM [facility] Protocol Insulin Aspart 1 - 3 units 02/18/24 21:00 02/18/24 21:35 Insulin Aspart (*Bkc) 100 Units/Ml SUB-Q Not Given HS [facility] Protocol Insulin Glargine 8 units 02/18/24 21:00 02/18/24 21:42 Insulin Glargine (Lantus) 1,000 Units/10 Ml Vial SUB-Q 8 units HS [facility] [place] Administration Levothyroxine Sodium 25 mcg 02/18/24 06:30 02/19/24 05:36 Levothyroxine Sodium 25 Mcg Tablet PO 25 mcg DAILY@0630 SELMA Administration Levothyroxine Sodium 112 mcg 02/18/24 06:30 02/19/24 05:36 Levothyroxine Sodium 112 Mcg Tablet PO 112 mcg DAILY@0630 SELMA Administration Trazodone HCl 50 mg 02/18/24 21:00 02/18/24 21:42 Trazodone Hcl 50 Mg Tablet PO 50 mg HS [facility] Administration Radiology Results: ITS Impressions Chest X-Ray 02/17/24 15:01 IMPRESSION: 1. Mild atelectasis in the lower lung zones. 2. Retraction of the central line, now with tip in the right brachiocephalic vein. Labs Labs: Laboratory Results - last 24 hr 02/18/24 02/18/24 02/19/24 16:28 19:43 05:58 WBC 5.2 RBC 3.07 L Hgb 8.9 L Hct 29.6 L MCV 96.4 MCH 29.0 MCHC 30.1 L RDW 18.5 H Plt Count 214 MPV 10.6 H Immature Gran % (Auto) 0.2 Neut % (Auto) 65.0 Lymph % (Auto) 22.3 Towner % (Auto) 8.4 Eos % (Auto) 3.1 Baso % (Auto) 1.0 Lymph # (Auto) 1.17 Towner # (Auto) 0.4 Eos # (Auto) 0.2 Baso # (Auto) 0.1 Abs Immat Gran (auto) 0.01 Absolute Neuts (auto) 3.4 Absolute Nucleated RBC 0.000 Nucleated RBC % 0.0 Sodium 137 Potassium 4.5 Chloride 113 H Carbon Dioxide 21 L Anion Gap 3 L BUN 48 H Creatinine 2.20 H Estim Creat Clear Calc 31 Estimated GFR 22 L Glucose 108 POC Capillary Glucose 122 H 156 H Calcium 8.3 L Phosphorus 4.6 H Magnesium 1.9 Total Bilirubin 0.7 AST 14 ALT 11 Alkaline Phosphatase 124 Total Protein 6.0 L Albumin 2.9 L 02/19/24 02/19/24 08:11 12:19 WBC RBC Hgb Hct MCV MCH MCHC RDW Plt Count MPV Immature Gran % (Auto) Neut % (Auto) Lymph % (Auto) Towner % (Auto) Eos % (Auto) Baso % (Auto) Lymph # (Auto) Towner # (Auto) Eos # (Auto) Baso # (Auto) Abs Immat Gran (auto) Absolute Neuts (auto) Absolute Nucleated RBC Nucleated RBC % Sodium Potassium Chloride Carbon Dioxide Anion Gap BUN Creatinine Estim Creat Clear Calc Estimated GFR Glucose POC Capillary Glucose 82 106 H Calcium Phosphorus Magnesium Total Bilirubin AST ALT Alkaline Phosphatase Total Protein Albumin Quality VTE Prophylaxis VTE prophylaxis: pharmacologic ordered -Patient's previous records reviewed on admission -ER notes reviewed in detail on admission -discussed all findings and current treatment plan with patient/Family/POA -Consultations reviewed for recommendations -Patient's disposition for safe discharge discussed with rehabilitation case coordinator Dictation performed by [employer] direct speech recognition software, therefore business development assistant variants and typographical errors may occur. Hospitalist MIPS Advance Care Plan I have confirmed that the patient's Advanced Care Plan is present, code status is documented, or surrogate decision maker is listed in patient medical record.: Yes Medication Reconciliation I have utilized all available resources to obtain, update and review the patients current medications (includes all prescriptions, OTC, herbals, cannabis, and nutritional supplements).: Yes The patient is not eligible for med reconciliation; the patient is in a emergent medical situation where delaying treatment would jeopardize the patients health.: No
--- NOTE | 2024-02-19 14:10 | P.PNNP_ITS ---
Progress Note: A&P Assessment and Plan (1) Chronic kidney disease, stage IV (severe): Code(s): N18.4 - Chronic kidney disease, stage 4 (severe) Status: Chronic Assessment and Plan: * new baseline creatinine seems ro run around 1.7 - 2.3mg/dl * due to due to biopsy proven diabetic nephropathy/nephrosclerosis (biopsies done in November 2021 and November 2023) in conjunction with vascular disease and leftovers from previous SHREYA/ARF * RENAL BIOPSY done (11/24/23): class III advanced nodular diabetic glomerulosclerosis with ~ 60% interstitial fibrosis and tubular atrophy * creatinine had worsned to 4.9mg/dl during November 2023 hospitalization complicated by anasarca/volume overload, diminished urine output despite high dose diuretic therapy, metabolic acidosis, and hyperkalemia which led to initiation of renal replacement therapy/dialysis * 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 about a week ago prior to admission due to evidence of renal recovery * responsive to IV diuretic therapy currently with relative stability in renal function * continue to follow trend of repeat labs and UOP (2) Anasarca: Code(s): R60.1 - Generalized edema Status: Acute Assessment and Plan: * as noted by physical exam and symptoms * localized to LEs and abdominal with a respiratory component as well * good diuresis noted with IV bumex * follow daily weights, I/Os, and respiratory status * dialysis remains an option if she fails conservative therapy (3) Displacement of central venous catheter (CVC): Code(s): T82.528A - Displacement of other cardiac and vascular devices and implants, initial encounter Status: Acute Assessment and Plan: * as noted by admission CXR regarding tunneled HD catheter * if further dialysis needed, it will likely need to replaced * however, if she responds to medical therapy with stability in renal function, then it can be removed * follow trend of renal function and UOP (4) Combined systolic and diastolic congestive heart failure: Code(s): I50.40 - Unspecified combined systolic (congestive) and diastolic (congestive) h eart failure Status: Acute Assessment and Plan: * suspect playing a role with volume status * last Echo on 11/2023 noted: * EF 40-45% * severe TR * moderate MR * pulmonary hypertension * continue diuresis * follow weight and I/Os (5) Chronic anemia: Code(s): D64.9 - Anemia, unspecified Status: Chronic Assessment and Plan: * suspect related to CKD * s/p EGD and colonoscopy on last hospitalization - no active bleeding lesions * dose with Retacrit while hospitalized * follow trend of H/H (6) Cellulitis of left leg: Code(s): L03.116 - Cellulitis of left lower limb Status: Acute Assessment and Plan: * as noted by erythema and swelling in LLE with ulcerations * however, WBC normal * careful with use of Bactrim given her advanced CKD - consider a different antibiotic * Wound care consulted/following (7) Paroxysmal atrial fibrillation: Code(s): I48.0 - Paroxysmal atrial fibrillation Status: Chronic Assessment and Plan: * rate control strategy * Eliquis on hold in case of possible/needed surgery/procedures (8) Hypertension: Code(s): I10 - Essential (primary) hypertension Status: Chronic Assessment and Plan: * reasonable control at this time * follow trend of hemodynamics (9) Type 2 diabetes mellitus, uncontrolled, with renal complications: Status: Chronic Assessment and Plan: * follow accu-cheks * glycemic control per hospitalists Will continue to follow Subjective Date/time seen: 02/19/24 11:10 Interval history: Follow-up for chronic kidney disease. Renal function/creatinine relatively stable with good urine output noted with the use of IV diuretics; reports improvement in breathing/shortness of breath but still has significant lower extremity edema present; no apparent distress voiced at this time; no issues/events overnight or earlier this morning. Exam Narrative: General: WD/WN female in NAD Heart: normal S1 and S2; no rub Lungs: clear anteriorly; decreased at bases Abdomen: soft, nontender, nondistended, positive bowel sounds Extremities: no cyanosis or clubbing; 1 - 2+ bilateral edema; s/p right BKA Skin: noted scattered abrasions Objective Data Vital Signs Vital Signs: Vital Signs Temp Pulse Resp BP Pulse Ox O2 Del Method FiO2 02/19/24 10:40 97.5 F L 81 16 125/65 95 02/19/24 08:00 67 02/19/24 08:00 Room Air 02/19/24 08:31 117/67 02/19/24 07:58 95 Room Air 21 02/19/24 05:59 97.2 F L 79 18 103/51 L 94 02/19/24 04:00 82 02/19/24 00:00 71 02/18/24 20:00 87 02/18/24 21:03 97.6 F 86 18 137/77 96 Intake/Output Intake/Output: Intake & Output 02/16/24 02/17/24 02/18/24 02/19/24 23:59 23:59 23:59 23:59 Intake Total 1220 900 Output Total 3817 1112 8484 [facility]2024 -1155 -1000 Meds/Results Medications: Active Medications Generic Name Dose Route Start Last Admin Trade Name Freq PRN Reason Stop Dose Admin Atorvastatin Calcium 40 mg 02/18/24 09:00 02/19/24 09:19 Atorvastatin 40 Mg Tablet PO 40 mg DAILY SELMA Administration Bumetanide 1 mg 02/19/24 09:00 02/19/24 09:18 Bumetanide Inj 1 Mg/4 Ml Vial IV PUSH 1 mg BID SELMA Administration Dextrose 12.5 gm 02/17/24 23:23 Dextrose 50% 25 Gm/50 Ml Syringe IV PUSH PRN PRN Hypoglycemia Protocol Famotidine 20 mg 02/18/24 09:00 02/19/24 09:19 Famotidine 20 Mg Tablet PO 20 mg DAILY SELMA Administration Glucagon 1 mg 02/17/24 23:23 Glucagon For Inj 1 Mg Vial IM PRN PRN Hypoglycemia Protocol Glucose 15 gm 02/17/24 23:23 Glucose Oral Gel 15 Gm Of Glucse In 37.5 Gm Tube PO PRN PRN Hypoglycemia Protocol Hydroxyzine Pamoate 50 mg 02/17/24 23:56 02/19/24 15:00 Hydroxyzine Pamoate 25 Mg Capsule PO 50 mg TID PRN Administration Anxiety Dextrose 1,000 mls @ 100 mls/hr 02/17/24 23:23 Dextrose 5% 1,000 Ml IVPB PRN PRN Hypoglycemia Protocol Insulin Aspart 3 - 6 units 02/18/24 08:00 02/19/24 12:19 Insulin Aspart (*Bkc) 100 Units/Ml SUB-Q Not Given TIDWM SELMA Protocol Insulin Aspart 1 - 3 units 02/18/24 21:00 02/18/24 21:35 Insulin Aspart (*Bkc) 100 Units/Ml SUB-Q Not Given HS [facility] Protocol Insulin Glargine 8 units 02/18/24 21:00 02/18/24 21:42 Insulin Glargine (Lantus) 1,000 Units/10 Ml Vial SUB-Q 8 units HS SELMA Administration Levothyroxine Sodium 25 mcg 02/18/24 06:30 02/19/24 05:36 Levothyroxine Sodium 25 Mcg Tablet PO 25 mcg DAILY@0630 SELMA Administration Levothyroxine Sodium 112 mcg 02/18/24 06:30 02/19/24 05:36 Levothyroxine Sodium 112 Mcg Tablet PO 112 mcg DAILY@0630 SELMA Administration Trazodone HCl 50 mg 02/18/24 21:00 02/18/24 21:42 Trazodone Hcl 50 Mg Tablet PO 50 mg HS SELMA Administration Trimethoprim/Sulfamethoxazole 1 tab 02/19/24 13:40 02/19/24 14:59 Sulfamethoxazole/Trimethoprim 800/160 Mg Ds Tablet PO 1 tab DAILY SELMA Administration Radiology Results: ITS Impressions Chest X-Ray 02/17/24 15:01 IMPRESSION: 1. Mild atelectasis in the lower lung zones. 2. Retraction of the central line, now with tip in the right brachiocephalic vein. Labs Labs: Laboratory Tests 02/19/24 05:58 02/19/24 05:58 Calcium 8.3 L Phosphorus 4.6 H Magnesium 1.9 Total Bilirubin 0.7 AST 14 ALT 11 Alkaline Phosphatase 124 Total Protein 6.0 L Albumin 2.9 L
[2024-02-19] MEDS: SULFAMETHOXAZOLE/TRIMETHOPRIM 800/160 MG DS TABLET 1 TAB PO (14:59)
[2024-02-19 16:58] LABS: Glucose Point of Care 129 mg/dl (65-105)
[2024-02-19] MEDS: traZODone HCL 50 MG TABLET PO (21:02)
[2024-02-19] MEDS: INSULIN GLARGINE (LANTUS) 1,000 UNITS/10 ML VIAL 8 UNITS SUB-Q (21:02)
[2024-02-19 21:38] LABS: Glucose Point of Care 142 mg/dl (65-105)
[2024-02-20] VITALS (9 sets, daily range): BP systolic 106–149; BP diastolic 49–79; PULSE 71–80; RESP 15–18; TEMP 36.4–36.8; O2SAT 93–96
[2024-02-20] MEDS: hydrOXYzine pamoate 25 MG CAPSULE 50 MG PO ×3 (02:17→23:44)
[2024-02-20] MEDS: LEVOTHYROXINE SODIUM 112 MCG TABLET PO (05:32)
[2024-02-20] MEDS: LEVOTHYROXINE SODIUM 25 MCG TABLET PO (05:32)
[2024-02-20 06:36] LABS: Basophils Percent Auto 0.7 % (0.2-1.2); Eosinophils Absolute Auto 0.2 K/mm3 (0-0.3); Eosinophils Percent Auto 2.9 % (0-4.4); Hematocrit 29.2 % (37.0-47.0); Hemoglobin 9.1 g/dL (12.0-15.0); Immature Granulocyte Absolute 0.02 K/mm3 (0.00-0.031); Immature Granulocyte Percent A 0.3 % (0-0.5); Lymphocytes Absolute Auto 1.36 K/mm3 (0.9-3.2); Lymphocytes Percent Auto 23.2 % (18.3-44.2); Mean Corpuscular HGB Conc 31.2 g/dl (32-36); Mean Corpuscular Hemoglobin 29.4 pg (26-34); Mean Corpuscular Volume 94.2 fl (80-100); Mean Platelet Volume 9.9 fl (7.4-10.4); Monocytes Absolute Auto 0.5 K/mm3 (0.1-0.6); Monocytes Percent Auto 8.2 % (2.6-8.5); Neutrophils Absolute Auto 3.8 K/mm3 (1.3-6.7); Neutrophils Percent Auto 64.7 % (45.5-73.1); Platelet Count Result 201 k/mm3 (150-375); Red Cell Distribution Width 18.4 % (11.5-14.5); White Blood Count 5.9 K/mm3 (4.5-10.0)
[2024-02-20 06:48] LABS: Alanine Aminotransferase 11 U/L (6-35); Albumin Level 2.9 g/dL (3.5-5.1); Alkaline Phosphatase 138 U/L (38-126); Anion Gap 5 mmol/L (4-12); Aspartate Amino Transferase 16 U/L (14-36); Bilirubin,Total 0.6 mg/dL (0.2-1.3); Blood Urea Nitrogen 51 mg/dL (7-17); Calcium 8.2 mg/dL (8.4-10.2); Carbon Dioxide 24 mmol/L (22-30); Chloride 109 mmol/L (98-107); Estimated CRCL calculation 30 ml/min; Estimated Glomerular Filt Rate 21; Glucose 142 mg/dL (65-110); Magnesium 1.9 mg/dL (1.6-2.3); Phosphorus 4.8 mg/dL (2.5-4.5); Potassium 4.7 mmol/L (3.4-5.0); Sodium 138 mmol/L (137-145)
[2024-02-20 09:01] LABS: Glucose Point of Care 133 mg/dl (65-105)
[2024-02-20] MEDS: ATORVASTATIN 40 MG TABLET PO (10:04)
[2024-02-20] MEDS: SULFAMETHOXAZOLE/TRIMETHOPRIM 800/160 MG DS TABLET 1 TAB PO (10:04)
[2024-02-20] MEDS: BUMETANIDE INJ 1 MG/4 ML VIAL IV PUSH ×2 (10:04→16:58)
[2024-02-20] MEDS: FAMOTIDINE 20 MG TABLET PO (10:04)
--- NOTE | 2024-02-20 11:10 | P.PNNP_ITS ---
Progress Note: A&P Assessment and Plan (1) Chronic kidney disease, stage IV (severe): Code(s): N18.4 - Chronic kidney disease, stage 4 (severe) Status: Chronic Assessment and Plan: * new baseline creatinine seems ro run around 1.7 - 2.3mg/dl * due to due to biopsy proven diabetic nephropathy/nephrosclerosis (biopsies done in November 2021 and November 2023) in conjunction with vascular disease and leftovers from previous SHREYA/ARF * RENAL BIOPSY (done on 11/24/23): class III advanced nodular diabetic glomerulosclerosis with ~ 60% interstitial fibrosis and tubular atrophy * creatinine had worsened to 4.9mg/dl during November 2023 hospitalization complicated by anasarca/volume overload, diminished urine output despite high dose diuretic therapy, metabolic acidosis, and hyperkalemia which led to initiation of renal replacement therapy/dialysis * [facility]/dialysis stopped about a week ago prior to admission due to evidence of renal recovery * responsive to IV diuretic therapy currently with relative stability in renal function at this time * continue to follow trend of repeat labs and UOP (2) Anasarca: Code(s): R60.1 - Generalized edema Status: Acute Assessment and Plan: * as noted by physical exam and symptoms * localized to LEs and abdominal area with a respiratory component as well * good diuresis noted with IV bumex * follow daily weights, I/Os, and respiratory status * dialysis remains an option if she fails conservative therapy (3) Displacement of central venous catheter (CVC): Code(s): T82.528A - Displacement of other cardiac and vascular devices and implants, initial encounter Status: Acute Assessment and Plan: * as noted by admission CXR regarding tunneled HD catheter * if further dialysis needed, it will likely need to replaced * however, if she responds to medical therapy with stability in renal function, then it can be removed * given evidence to date, it would seem dialysis is no longer needed... * follow trend of renal function and UOP (4) Combined systolic and diastolic congestive heart failure: Code(s): I50.40 - Unspecified combined systolic (congestive) and diastolic (congestive) heart failure Status: Acute Assessment and Plan: * suspect playing a role with volume status along with kidney disease * last Echo on 11/2023 noted: * EF 40-45% * severe TR * moderate MR * pulmonary hypertension * continue diuresis * follow weight and I/Os (5) Chronic anemia: Code(s): D64.9 - Anemia, unspecified Status: Chronic Assessment and Plan: * suspect related to CKD * s/p EGD and colonoscopy on last hospitalization - no active bleeding lesions * dose with Retacrit while hospitalized * follow trend of H/H (6) Cellulitis of left leg: Code(s): L03.116 - Cellulitis of left lower limb Status: Acute Assessment and Plan: * as noted by erythema and swelling in LLE with ulcerations * however, WBC normal * on antibiotics * Wound care consulted/following (7) Paroxysmal atrial fibrillation: Code(s): I48.0 - Paroxysmal atrial fibrillation Status: Chronic Assessment and Plan: * rate control strategy * Eliquis on hold in case of possible/needed surgery/procedures (8) Hypertension: Code(s): I10 - Essential (primary) hypertension Status: Chronic Assessment and Plan: * reasonable control at this time * follow trend of hemodynamics (9) Type 2 diabetes mellitus, uncontrolled, with renal complications: Status: Chronic Assessment and Plan: * follow accu-cheks * glycemic control per hospitalists Will continue to follow Subjective Date/time seen: 02/20/24 11:10 Interval history: Follow-up for chronic kidney disease. Continues to make slow and steady improvement in general -- shortness of breath/breathing is doing significantly better and her LE edema is improving; renal function/creatinine is tolerating diuretic therapy with good urine output noted (although she still quite a bit of lower extremity swelling/edema present); no apparent distress noted at the time of my visit. Exam Narrative: General: WD/WN female in NAD Heart: normal S1 and S2; no rub Lungs: clear anteriorly; decreased at bases Abdomen: soft, nontender, nondistended, positive bowel sounds Extremities: no cyanosis or clubbing; 1 - 2+ bilateral edema; s/p right BKA Skin: noted scattered abrasions over LEs Objective Data Vital Signs Vital Signs: Vital Signs Temp Pulse Resp BP Pulse Ox 02/20/24 11:00 98.3 F 78 15 118/79 96 02/20/24 06:00 97.6 F 73 18 106/49 L 93 02/20/24 04:00 72 02/20/24 00:00 71 02/19/24 20:00 72 02/19/24 22:00 97.7 F 88 18 140/56 L 96 Intake/Output Intake/Output: Intake & Output 02/17/24 02/18/24 02/19/24 02/20/24 23:59 23:59 23:59 23:59 Intake Total 1220 1140 1510 Output Total 2225 2379 5970 800 Balance -0833 -3805 -1360 710 Meds/Results Medications: Active Medications Generic Name Dose Route Start Last Admin Trade Name Freq PRN Reason Stop Dose Admin Atorvastatin Calcium 40 mg 02/18/24 09:00 02/20/24 10:04 Atorvastatin 40 Mg Tablet PO 40 mg DAILY SELMA Administration Bumetanide 1 mg 02/19/24 09:00 02/20/24 16:58 Bumetanide Inj 1 Mg/4 Ml Vial IV PUSH 1 mg BID SELMA Administration Cephalexin HCl 500 mg 02/20/24 18:00 02/20/24 17:00 Cephalexin 500 Mg Capsule PO 500 mg Q6HR SELMA Administration Dextrose 12.5 gm 02/17/24 23:23 Dextrose 50% 25 Gm/50 Ml Syringe IV PUSH PRN PRN Hypoglycemia Protocol Epoetin Marc-epbx 10,000 units 02/21/24 09:00 Epoetin Marc-Epbx 10,000 Units/Ml Vial SUB-Q MOWEFR@09 [facility] Famotidine 20 mg 02/18/24 09:00 02/20/24 10:04 Famotidine 20 Mg Tablet PO 20 mg DAILY SELMA Administration Glucagon 1 mg 02/17/24 23:23 Glucagon For Inj 1 Mg Vial IM PRN PRN Hypoglycemia Protocol Glucose 15 gm 02/17/24 23:23 Glucose Oral Gel 15 Gm Of Glucse In 37.5 Gm Tube PO PRN PRN Hypoglycemia Protocol Hydroxyzine Pamoate 50 mg 02/17/24 23:56 02/20/24 16:58 Hydroxyzine Pamoate 25 Mg Capsule PO 50 mg TID PRN Administration Anxiety Dextrose 1,000 mls @ 100 mls/hr 02/17/24 23:23 Dextrose 5% 1,000 Ml IVPB PRN PRN Hypoglycemia Protocol Insulin Aspart 3 - 6 units 02/18/24 08:00 02/20/24 12:22 Insulin Aspart (*Bkc) 100 Units/Ml SUB-Q Not Given TIDWM SELMA Protocol Insulin Aspart 1 - 3 units 02/18/24 21:00 02/19/24 21:01 Insulin Aspart (*Bkc) 100 Units/Ml SUB-Q Not Given HS [facility] Protocol Insulin Glargine 8 units 02/18/24 21:00 02/19/24 21:02 Insulin Glargine (Lantus) 1,000 Units/10 Ml Vial SUB-Q 8 units HS [facility] Administration Levothyroxine Sodium 25 mcg 02/18/24 06:30 02/20/24 05:32 Levothyroxine Sodium 25 Mcg Tablet PO 25 mcg DAILY@30 SELMA Administration Levothyroxine Sodium 112 mcg 02/18/24 06:30 02/20/24 05:32 Levothyroxine Sodium 112 Mcg Tablet PO 112 mcg DAILY@30 [facility] Administration Trazodone HCl 50 mg 02/18/24 21:00 02/19/24 21:02 Trazodone Hcl 50 Mg Tablet PO 50 mg HS [facility] Administration Radiology Results: ITS Impressions Chest X-Ray 02/17/24 15:01 IMPRESSION: 1. Mild atelectasis in the lower lung zones. 2. Retraction of the central line, now with tip in the right brachiocephalic vein. Labs Labs: Laboratory Tests 02/20/24 06:27 02/20/24 06:27 Calcium 8.2 L Phosphorus 4.8 H Magnesium 1.9 Total Bilirubin 0.6 AST 16 ALT 11 Alkaline Phosphatase 138 H Total Protein 6.0 L Albumin 2.9 L
--- NOTE | 2024-02-20 11:29 | PM.CNGS ---
Assessment and Plan Assessment and plan (1) Chronic kidney disease: Code(s): N18.9 - Chronic kidney disease, unspecified Status: Acute Assessment and Plan: right subclavian tunneled hemodialysis catheter has pulled out, await Nephrology decision whether to just remove the catheter as her kidney function has improved verses placing new catheter, continue local care around the catheter as there was no signs or symptoms of infection History of Present Illness Consult details Consult date: 02/20/24 Reason for consult: central line Requesting physician: Florence White MD Narrative: The patient is a 68-year-old female presenting with fluid overload. The patient has been admitted to the medical service. Of note, the patient had a tunneled hemodialysis catheter placed in November. The patient had subsequently received dialysis multiple times, however recently her kidney function has recovered to the point of not needing hemodialysis. The patient reports that she has not had dialysis for about 2 weeks. It is also noted that her catheter has pulled out and is now more in the brachiocephalic vein. Review of Systems Review of Systems: All systems reviewed & are unremarkable except as noted in HPI and below PMFSH Past Medical History Medical History Chronic anemia Chronic anticoagulation Chronic kidney disease Combined systolic and diastolic congestive heart failure Coronary artery disease Diabetic neuropathy Hyperlipidemia Hypertension Insulin dependent type 2 diabetes mellitus Neurogenic bladder Osteomyelitis Paroxysmal atrial fibrillation Right-sided heart failure Surgical History Surgical History History of amputation of toe History of coronary artery bypass graft History of hysterectomy History of right below knee amputation Family History Family History Sibling Thymus cancer Diabetes mellitus All 4 siblings Lung cancer, lower lobe Melanoma Lymph edema Mother Family history of emphysema Father Acute myocardial infarction Social History Social History Social History: Surrogate medical decision maker: Trung Mcgrath, daughter. Code status: Full code. Smoking packs per day: 1 Smoking cigarettes per day: 20.0 Years smoked: 30 Smoking pack-years: 30.00 Smoking status: Former smoker Tobacco type: cigarettes Second hand tobacco smoke exposure: Yes ( smokes) Smoking end date: 02/24/07 Alcohol intake: never Substance use: never Substance use type: does not use Do You Feel Safe in your Home?: Yes Lack of Transportation: No Lack of Food: Never True Current Housing: I Have Housing Concerned About Future Housing: No Difficulty Paying Gas/Electric Bills: No Difficulty Paying for Meds: No Currently Unemployed: No Education: High School Diploma/GED Difficulty w/ Childcare or Family Care: No Spiritual care concerns: No Meds Home Medications and Allergies Home Medications Medication Instructions Recorded Confirmed Type atorvastatin 40 mg tablet 40 mg PO DAILY 12/09/21 02/17/24 History hydroxyzine pamoate 50 mg capsule 50 mg PO TID PRN Anxiety 03/30/22 02/17/24 History levothyroxine 125 mcg tablet 137 mcg PO DAILY 04/17/22 02/17/24 History insulin pen,reusable,BT,lispro 12/14/22 02/17/24 History (InPen (for Humalog) Blue subcutaneous) trazodone 50 mg tablet 50 mg PO HS 10/11/23 02/17/24 History apixaban 5 mg tablet (Eliquis) 2.5 mg PO BID #30 tabs 12/03/23 02/17/24 Rx famotidine 40 mg tablet 20 mg PO DAILY #90 tabs 12/03/23 02/17/24 Rx insulin aspart U-100 100 unit/mL 3 - 6 unit subcut TIDWM #30 mL 12/03/23 02/17/24 Rx subcutaneous solution (Novolog U-100 Insulin aspart) insulin degludec 100 unit/mL (3 8 unit (0.08 mL) subcut HS #3 mL 12/03/23 02/17/24 Rx mL) subcutaneous pen (Tresiba FlexTouch U-100 insulin) amlodipine 2.5 mg tablet 2.5 mg PO DAILY 02/17/24 02/17/24 History bumetanide 1 mg tablet 1 mg PO BID 02/17/24 02/17/24 History Allergies Allergy/AdvReac Type Severity Reaction Status Date / Time semaglutide [From Ozempic] AdvReac Unknown Verified 11/19/23 09:49 Vital Signs Vital Signs - 24 hr 02/19/24 13:40 02/19/24 12:00 02/19/24 16:00 Temperature 36.4 C L Pulse Rate 81 71 82 Respiratory Rate 16 Blood Pressure 125/65 Pulse Oximetry 95 02/19/24 22:00 02/19/24 20:00 02/20/24 00:00 Temperature 36.5 C Pulse Rate 88 72 71 Respiratory Rate 18 Blood Pressure 140/56 L Pulse Oximetry 96 02/20/24 04:00 02/20/24 06:00 Temperature 36.4 C Pulse Rate 72 73 Respiratory Rate 18 Blood Pressure 106/49 L Pulse Oximetry 93 Exam Const: General: cooperative, comfortable, no acute distress, ill appearing and obese HENMT: Head: normal to inspection, normocephalic and atraumatic Eyes: General: appearance normal, both eyes and all related structures Neck: Neck: normal visual inspection and no lymphadenopathy Other: Right subclavian tunneled hemodialysis catheter noted with cuff outside of the exit site, no signs or symptoms of infection Resp: Auscultation: diminished lung sounds Cardio: Rate: regular rate Rhythm: regular rhythm GI: Inspection: normal to inspection Skin: General skin exam: normal color and no rashes or lesions noted Neuro: General: patient oriented x3 and CN's II-XI intact bilaterally Extrem: General: normal to inspection Results Labs 02/20/24 06:27 02/20/24 06:27 Labs: Abnormal lab results 02/19/24 02/19/24 02/19/24 Range/Units 12:19 16:48 20:53 RBC (4.2-5.4) M/mm3 Hgb (12.0-15.0) g/dL Hct (37.0-47.0) % MCHC (32-36) g/dl RDW (11.5-14.5) % Chloride (98-107) mmol/L BUN (7-17) mg/dL Creatinine (0.7-1.0) mg/dL Estimated GFR (59 - ) Glucose (65-110) mg/dL POC Capillary Glucose 106 H 129 H 142 H (65-105) mg/dl Calcium (8.4-10.2) mg/dL Phosphorus (2.5-4.5) mg/dL Alkaline Phosphatase (38-126) U/L Total Protein (6.3-8.2) g/dL Albumin (3.5-5.1) g/dL 02/20/24 02/20/24 Range/Units 06:27 08:59 RBC 3.10 L (4.2-5.4) M/mm3 Hgb 9.1 L (12.0-15.0) g/dL Hct 29.2 L (37.0-47.0) % MCHC 31.2 L (32-36) g/dl RDW 18.4 H (11.5-14.5) % Chloride 109 H (98-107) mmol/L BUN 51 H (7-17) mg/dL Creatinine 2.30 H (0.7-1.0) mg/dL Estimated GFR 21 L (59 - ) Glucose 142 H (65-110) mg/dL POC Capillary Glucose 133 H (65-105) mg/dl Calcium 8.2 L (8.4-10.2) mg/dL Phosphorus 4.8 H (2.5-4.5) mg/dL Alkaline Phosphatase 138 H (38-126) U/L Total Protein 6.0 L (6.3-8.2) g/dL Albumin 2.9 L (3.5-5.1) g/dL Diabetes panel 02/20/24 Range/Units 06:27 Sodium 138 (137-145) mmol/L Potassium 4.7 (3.4-5.0) mmol/L Chloride 109 H (98-107) mmol/L Carbon Dioxide 24 (22-30) mmol/L BUN 51 H (7-17) mg/dL Creatinine 2.30 H (0.7-1.0) mg/dL Glucose 142 H (65-110) mg/dL Calcium 8.2 L (8.4-10.2) mg/dL AST 16 (14-36) U/L ALT 11 (6-35) U/L Alkaline Phosphatase 138 H (38-126) U/L Total Protein 6.0 L (6.3-8.2) g/dL Albumin 2.9 L (3.5-5.1) g/dL Calcium panel 02/20/24 Range/Units 06:27 Calcium 8.2 L (8.4-10.2) mg/dL Phosphorus 4.8 H (2.5-4.5) mg/dL Albumin 2.9 L (3.5-5.1) g/dL Pituitary panel 02/20/24 Range/Units 06:27 Sodium 138 (137-145) mmol/L Potassium 4.7 (3.4-5.0) mmol/L Chloride 109 H (98-107) mmol/L Carbon Dioxide 24 (22-30) mmol/L BUN 51 H (7-17) mg/dL Creatinine 2.30 H (0.7-1.0) mg/dL Glucose 142 H (65-110) mg/dL Calcium 8.2 L (8.4-10.2) mg/dL Adrenal panel 02/20/24 Range/Units 06:27 Sodium 138 (137-145) mmol/L Potassium 4.7 (3.4-5.0) mmol/L Chloride 109 H (98-107) mmol/L Carbon Dioxide 24 (22-30) mmol/L BUN 51 H (7-17) mg/dL Creatinine 2.30 H (0.7-1.0) mg/dL Glucose 142 H (65-110) mg/dL Calcium 8.2 L (8.4-10.2) mg/dL Total Bilirubin 0.6 (0.2-1.3) mg/dL AST 16 (14-36) U/L ALT 11 (6-35) U/L Alkaline Phosphatase 138 H (38-126) U/L Total Protein 6.0 L (6.3-8.2) g/dL Albumin 2.9 L (3.5-5.1) g/dL All other labs normal.
[2024-02-20 12:15] LABS: Glucose Point of Care 178 mg/dl (65-105)
--- NOTE | 2024-02-20 12:30 | P.PNIM_ITS ---
Progress Note: A&P Assessment and Plan (1) Anasarca: Code(s): R60.1 - Generalized edema Status: Acute Assessment and Plan: patient went increased swelling LLE/ABD increased shortness of breath has not been dialyzed for over a week * IV Bumex b.i.d. * may need dialysis resumed * daily weights * Orr catheter for strict I&Os (2) Chronic kidney disease on chronic dialysis: Code(s): N18.6 - End stage renal disease; Z99.2 - Dependence on renal dialysis Status: Acute Assessment and Plan: on dialysis but has not received dialysis for week was discontinued outpatient catheter placement has migrated to the right brachiocephalic vein * IV Bumex b.i.d. * nephrology consulted for further recommendations may need to surgery for central venous catheter * Likely need dialysis even with stable CR at 2.2 * Will attempt medical management with diuretics if no improvement will likely need to resume Dialysis per nephorology * Avoid nephrotoxic drugs. * Monitor antihypertensive drug therapy. * Avoid NSAIDs. * Routine CMP monitoring GFR. * Monitor electrolytes especially potassium. * Antibiotic doses depending on creatinine clearance. * Pharmacy does medications. * Surgery consulted for either tunnel cath removal or replacement 02/20/2024 * Cr small bump 2.30 * will change the oral bactrim to Keflex for renal protection and to avoid worsening of renal function (3) Combined systolic and diastolic congestive heart failure: Code(s): I50.40 - Unspecified combined systolic (congestive) and diastolic (congestive) heart failure Status: Acute Assessment and Plan: * the anasarca appears to be more related to her renal disease without dialysis for a week * BNP 32137 * IV Bumex b.i.d. * LAst Echo 11/2023 EF 40-45%/Severe TR, Moderate MR and pulmonary hypertension * EKG AFIB * chest x-ray showing mild atelectasis * Lipid panel, TSH, liver function test. * Daily weight. * strict I&Os * Fall risk assessment. (4) Neurogenic bladder: Code(s): N31.9 - Neuromuscular dysfunction of bladder, unspecified Status: Chronic Assessment and Plan: patient typically straight caths herself at home * patient currently on IV Bumex will place Orr catheter for strict I&Os and reduce risk of infection from increased straight cathing (5) Complication associated with peripherally inserted central catheter: Code(s): T82.9XXA - Unspecified complication of cardiac and vascular prosthetic device, implant and graft, initial encounter Status: Acute Assessment and Plan: * CXR shows migration of catheter tip to the right brachiocephalic vein * waiting on nephrology recommendations may need surgery consult for replacement if need for dialysis (6) Paroxysmal atrial fibrillation: Code(s): I48.0 - Paroxysmal atrial fibrillation Status: Chronic Assessment and Plan: * rate controlled * resume patient's Eliquis/but need to hold for possible surgery (7) Hypothyroidism: Code(s): E03.9 - Hypothyroidism, unspecified Status: Acute Assessment and Plan: * TSH >17 * T4 pending * resume levothyroxine (8) Diabetes: Code(s): E11.9 - Type 2 diabetes mellitus without complications Status: Chronic Assessment and Plan: * Accu-Cheks a.c. 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, unspecified lower leg, subsequent encounter Status: Acute (10) Anemia of chronic disease: Code(s): D63.8 - Anemia in other chronic diseases classified elsewhere Status: Acute Assessment and Plan: * Likely secondary to CKD * no overt bleeding * Hgb 9.7 * continue to monitor will transfuse PRBC if Hgb <7.0 (11) Cellulitis of left leg: Code(s): L03.116 - Cellulitis of left lower limb Status: Acute Assessment and Plan: Erythema and swelling LLE with ulcerations no WBC * Started on oral Bactrim * Wound consulted Plan Code status: Full code per patient DVT prophylaxis: Eliquis Stress ulcer prophylaxis: Protonix 40 daily PT/OT notes: PT/OT pending Disposition: patient was admitted to the medical unit due to fluid overload will continue with IV Bumex per Nephrology x2 days to determine if patient needs to resume dialysis if so patient will need replacement dialysis catheter and removal of old one. Time Spent With Patient Time with patient: 15 - 25 minutes Subjective Date/time seen: 02/20/24 12:30 Interval history: Patient is a 68-year-old female who was admitted to the medical unit for further evaluation treatment of fluid overload patient with history combined systolic and diastolic heart failure as well as end-stage renal disease who has not been dialyzed for over a week. 02/20/2024: Patient reports breathing well and having good urinary output, LLE with minimal pain and swelling improved. She state she has pain to her buttock area and is worried about getting an ulcer since she isn't moving much. Patient still quiet edematous and Cr with little bump electrolytes stable. Review of Systems Review of Systems: 12 systems were reviewed and are negativ e except for as per HPI. All systems reviewed & are unremarkable except as noted in HPI and below Exam Narrative: * GENERAL: acute on chronically ill appearing pleasant female Alert and oriented x 3. No acute distress. * EYES: PERRLA * HEENT: Moist mucous membranes. * LUNGS: minimal crackles BLL to auscultation bilaterally. No accessory muscle use. * CARDIOVASCULAR: Irregularly irregular. No murmur. No JVD. S1-S2 * ABDOMEN: Soft, non tenderness and non-distended. No palpable masses. * EXTREMITIES: Left leg is significantly edematous and she also has edema of the right [id number] amputation and ABD. * SKIN: Multiple shallow ulcerations of varying sizes and scattered excoriations on all extremities. Left lower extremity is erythematous but not warm or tender to touch. Skin warm, dry. * NEUROLOGIC: No focal neurological deficits. CN II-XII grossly intact * PSYCHIATRIC: Appropriate mood and affect. Good judgement and insight. Objective Data Vital Signs Vital Signs: Vital Signs - 24 hr 02/19/24 13:40 02/19/24 16:00 02/19/24 22:00 Temperature 97.5 F L 97.7 F Pulse Rate 81 82 88 Respiratory Rate 16 18 Blood Pressure 125/65 140/56 L Pulse Oximetry 95 96 02/19/24 20:00 02/20/24 00:00 02/20/24 04:00 Temperature Pulse Rate 72 71 72 Respiratory Rate Blood Pressure Pulse Oximetry 02/20/24 06:00 Temperature 97.6 F Pulse Rate 73 Respiratory Rate 18 Blood Pressure 106/49 L Pulse Oximetry 93 Intake/Output Intake/Output: Intake & Output 02/17/24 02/18/24 02/19/24 02/20/24 23:59 23:59 23:59 23:59 Intake Total 1220 1140 910 Output Total 2225 6515 0281 800 Balance -2225 -1155 -1360 110 Meds/Results Medications: Active Medications Generic Name Dose Route Start Last Admin Trade Name Freq PRN Reason Stop Dose Admin Atorvastatin Calcium 40 mg 02/18/24 09:00 02/20/24 10:04 Atorvastatin 40 Mg Tablet PO 40 mg DAILY SELMA Administration Bumetanide 1 mg 02/19/24 09:00 02/20/24 10:04 Bumetanide Inj 1 Mg/4 Ml Vial IV PUSH 1 mg BID SELMA Administration Dextrose 12.5 gm 02/17/24 23:23 Dextrose 50% 25 Gm/50 Ml Syringe IV PUSH PRN PRN Hypoglycemia Protocol Epoetin Marc-epbx 10,000 units 02/21/24 09:00 Epoetin Marc-Epbx 10,000 Units/Ml Vial SUB-Q MOWEFR@09 [facility] Famotidine 20 mg 02/18/24 09:00 02/20/24 10:04 Famotidine 20 Mg Tablet PO 20 mg DAILY SELMA Administration Glucagon 1 mg 02/17/24 23:23 Glucagon For Inj 1 Mg Vial IM PRN PRN Hypoglycemia Protocol Glucose 15 gm 02/17/24 23:23 Glucose Oral Gel 15 Gm Of Glucse In 37.5 Gm Tube PO PRN PRN Hypoglycemia Protocol Hydroxyzine Pamoate 50 mg 02/17/24 23:56 02/20/24 02:17 Hydroxyzine Pamoate 25 Mg Capsule PO 50 mg TID PRN Administration Anxiety Dextrose 1,000 mls @ 100 mls/hr 02/17/24 23:23 Dextrose 5% 1,000 Ml IVPB PRN PRN Hypoglycemia Protocol Insulin Aspart 3 - 6 units 02/18/24 08:00 02/20/24 12:22 Insulin Aspart (*Bkc) 100 Units/Ml SUB-Q Not Given TIDWM [facility] Protocol Insulin Aspart 1 - 3 units 02/18/24 21:00 02/19/24 21:01 Insulin Aspart (*Bkc) 100 Units/Ml SUB-Q Not Given HS [facility] Protocol Insulin Glargine 8 units 02/18/24 21:00 02/19/24 21:02 Insulin Glargine (Lantus) 1,000 Units/10 Ml Vial SUB-Q 8 units HS [facility] Administration Levothyroxine Sodium 25 mcg 02/18/24 06:30 02/20/24 05:32 Levothyroxine Sodium 25 Mcg Tablet PO 25 mcg DAILY@0630 [facility] Administration Levothyroxine Sodium 112 mcg 02/18/24 06:30 02/20/24 05:32 Levothyroxine Sodium 112 Mcg Tablet PO 112 mcg DAILY@0630 SELMA Administration Trazodone HCl 50 mg 02/18/24 21:00 02/19/24 21:02 Trazodone Hcl 50 Mg Tablet PO 50 mg HS [facility] Administration Trimethoprim/Sulfamethoxazole 1 tab 02/19/24 13:40 02/20/24 10:04 Sulfamethoxazole/Trimethoprim 800/160 Mg Ds Tablet PO 1 tab DAILY SELMA Administration Radiology Results: ITS Impressions Chest X-Ray 12/05/24 15:01 IMPRESSION: 1. Mild atelectasis in the lower lung zones. 2. Retraction of the central line, now with tip in the right brachiocephalic vein. Labs Labs: Laboratory Results - last 24 hr 02/19/24 02/19/24 02/19/24 12:19 16:48 20:53 WBC RBC Hgb Hct MCV MCH MCHC RDW Plt Count MPV Immature Gran % (Auto) Neut % (Auto) Lymph % (Auto) Turner % (Auto) Eos % (Auto) Baso % (Auto) Lymph # (Auto) Turner # (Auto) Eos # (Auto) Baso # (Auto) Abs Immat Gran (auto) Absolute Neuts (auto) Absolute Nucleated RBC Nucleated RBC % Sodium Potassium Chloride Carbon Dioxide Anion Gap BUN Creatinine Estim Creat Clear Calc Estimated GFR Glucose POC Capillary Glucose 106 H 129 H 142 H Calcium Phosphorus Magnesium Total Bilirubin AST ALT Alkaline Phosphatase Total Protein Albumin 02/20/24 02/20/24 02/20/24 06:27 08:59 12:12 WBC 5.9 RBC 3.10 L Hgb 9.1 L Hct 29.2 L MCV 94.2 MCH 29.4 MCHC 31.2 L RDW 18.4 H Plt Count 201 MPV 9.9 Immature Gran % (Auto) 0.3 Neut % (Auto) 64.7 Lymph % (Auto) 23.2 Turner % (Auto) 8.2 Eos % (Auto) 2.9 Baso % (Auto) 0.7 Lymph # (Auto) 1.36 Turner # (Auto) 0.5 Eos # (Auto) 0.2 Baso # (Auto) 0.0 Abs Immat Gran (auto) 0.02 Absolute Neuts (auto) 3.8 Absolute Nucleated RBC 0.000 Nucleated RBC % 0.0 Sodium 138 Potassium 4.7 Chloride 109 H Carbon Dioxide 24 Anion Gap 5 BUN 51 H Creatinine 2.30 H Estim Creat Clear Calc 30 Estimated GFR 21 L Glucose 142 H POC Capillary Glucose 133 H 178 H Calcium 8.2 L Phosphorus 4.8 H Magnesium 1.9 Total Bilirubin 0.6 AST 16 ALT 11 Alkaline Phosphatase 138 H Total Protein 6.0 L Albumin 2.9 L Quality VTE Prophylaxis VTE prophylaxis: pharmacologic ordered -Patient's previous records reviewed on admission -ER notes reviewed in detail on admission -discussed all findings and current treatment plan with patient/Family/POA -Consultations reviewed for recommendations -Patient's disposition for safe discharge discussed with leather case finisher Dictation performed by [employer] direct speech recognition software, therefore sales agent variants and typographical errors may occur. Hospitalist MIPS Advance Care Plan I have confirmed that the patient's Advanced Care Plan is present, code status is documented, or surrogate decision maker is listed in patient medical record.: Yes Medication Reconciliation I have utilized all available resources to obtain, update and review the patients current medications (includes all prescriptions, OTC, herbals, cannabis, and nutritional supplements).: Yes The patient is not eligible for med reconciliation; the patient is in a emergent medical situation where delaying treatment would jeopardize the patients health.: No
[2024-02-20] MEDS: CEPHALEXIN 500 MG CAPSULE PO ×2 (17:00→23:44)
[2024-02-20 17:20] LABS: Glucose Point of Care 187 mg/dl (65-105)
[2024-02-20 21:18] LABS: Glucose Point of Care 207 mg/dl (65-105)
[2024-02-20] MEDS: traZODone HCL 50 MG TABLET PO (21:18)
[2024-02-20] MEDS: INSULIN GLARGINE (LANTUS) 1,000 UNITS/10 ML VIAL 8 UNITS SUB-Q (21:18)
[2024-02-20] MEDS: INSULIN ASPART (*BKC) 100 UNITS/ML SUB-Q (21:18)
[2024-02-21] VITALS (16 sets, daily range): BP systolic 107–143; BP diastolic 54–78; PULSE 69–86; RESP 11–20; TEMP 35.9–36.6; O2SAT 82–100
[2024-02-21 05:51] LABS: Basophils Percent Auto 0.7 % (0.2-1.2); Eosinophils Absolute Auto 0.2 K/mm3 (0-0.3); Eosinophils Percent Auto 3.1 % (0-4.4); Hematocrit 31.1 % (37.0-47.0); Hemoglobin 9.7 g/dL (12.0-15.0); Immature Granulocyte Absolute 0.03 K/mm3 (0.00-0.031); Immature Granulocyte Percent A 0.5 % (0-0.5); Lymphocytes Absolute Auto 1.55 K/mm3 (0.9-3.2); Lymphocytes Percent Auto 28.3 % (18.3-44.2); Mean Corpuscular HGB Conc 31.2 g/dl (32-36); Mean Corpuscular Hemoglobin 29.5 pg (26-34); Mean Corpuscular Volume 94.5 fl (80-100); Mean Platelet Volume 10.4 fl (7.4-10.4); Monocytes Absolute Auto 0.4 K/mm3 (0.1-0.6); Monocytes Percent Auto 7.7 % (2.6-8.5); Neutrophils Absolute Auto 3.3 K/mm3 (1.3-6.7); Neutrophils Percent Auto 59.7 % (45.5-73.1); Platelet Count Result 217 k/mm3 (150-375); Red Blood Count 3.29 M/mm3 (4.2-5.4); Red Cell Distribution Width 18.4 % (11.5-14.5); White Blood Count 5.5 K/mm3 (4.5-10.0)
[2024-02-21] MEDS: CEPHALEXIN 500 MG CAPSULE PO ×3 (05:52→18:27)
[2024-02-21] MEDS: LEVOTHYROXINE SODIUM 112 MCG TABLET PO (05:52)
[2024-02-21] MEDS: LEVOTHYROXINE SODIUM 25 MCG TABLET PO (05:52)
[2024-02-21 06:12] LABS: Alanine Aminotransferase 11 U/L (6-35); Albumin Level 3.2 g/dL (3.5-5.1); Alkaline Phosphatase 160 U/L (38-126); Anion Gap 6 mmol/L (4-12); Aspartate Amino Transferase 16 U/L (14-36); Bilirubin,Total 0.6 mg/dL (0.2-1.3); Blood Urea Nitrogen 48 mg/dL (7-17); Calcium 8.2 mg/dL (8.4-10.2); Carbon Dioxide 23 mmol/L (22-30); Chloride 109 mmol/L (98-107); Estimated CRCL calculation 30 ml/min; Estimated Glomerular Filt Rate 21; Glucose 151 mg/dL (65-110); Magnesium 1.9 mg/dL (1.6-2.3); Potassium 4.4 mmol/L (3.4-5.0); Sodium 138 mmol/L (137-145)
[2024-02-21 09:01] LABS: Glucose Point of Care 125 mg/dl (65-105)
--- NOTE | 2024-02-21 09:06 | P.PNIM_ITS ---
Progress Note: A&P Assessment and Plan (1) Anasarca: Code(s): R60.1 - Generalized edema Status: Acute Assessment and Plan: patient with increased swelling LLE/ABD increased shortness of breath previously on dialysis which was stopped a little over a week ago with renal improvement * IV Bumex b.i.d. * may need dialysis resumed * daily weights * Orr catheter for strict I&Os 02/21/2024: * Patient responding to IV diuretics renal function stable currently * continue with current treatment and monitor renal function and urine output (2) Chronic kidney disease on chronic dialysis: Code(s): N18.6 - End stage renal disease; Z99.2 - Dependence on renal dialysis Status: Acute Assessment and Plan: on dialysis but has not received dialysis for week was discontinued outpatient catheter placement has migrated to the right brachiocephalic vein * IV Bumex b.i.d. * nephrology consulted for further recommendations may need to surgery for central venous catheter * Likely need dialysis even with stable CR at 2.2 * Will attempt medical management with diuretics if no improvement will likely need to resume Dialysis per nephorology * Avoid nephrotoxic drugs. * Monitor antihypertensive drug therapy. * Avoid NSAIDs. * Routine CMP monitoring GFR. * Monitor electrolytes especially potassium. * Antibiotic doses depending on creatinine clearance. * Pharmacy does medications. * Surgery consulted for either tunnel cath removal or replacement 02/20/2024 * Cr small bump 2.30 * will change the oral bactrim to Keflex for renal protection and to avoid worsening of renal function 02/21/2024 * Responding to IV diuretics * monitor urine output and renal function * if continues may not need dialysis with renal stability * Catheter removed 02/21/2024 (3) Combined systolic and diastolic congestive heart failure: Code(s): I50.40 - Unspecified combined systolic (congestive) and diastolic (congestive) heart failure Status: Acute Assessment and Plan: the nestorsarca appears to be more related to her renal disease without dialysis for a week but likely playing role in fluid overload * BNP 95302 * IV Bumex b.i.d. * LAst Echo 11/2023 EF 40-45%/Severe TR, Moderate MR and pulmonary hypertension * EKG AFIB * chest x-ray showing mild atelectasis * Lipid panel, TSH, liver function test. * Daily weight. * strict I&Os * Fall risk assessment. (4) Neurogenic bladder: Code(s): N31.9 - Neuromuscular dysfunction of bladder, unspecified Status: Chronic Assessment and Plan: patient typically straight caths herself at home * patient currently on IV Bumex will place Orr catheter for strict I&Os and reduce risk of infection from increased straight cathing (5) Complication associated with peripherally inserted central catheter: Code(s): T82.9XXA - Unspecified complication of cardiac and vascular prosthetic device, implant and graft, initial encounter Status: Acute Assessment and Plan: * CXR shows migration of catheter tip to the right brachiocephalic vein * waiting on nephrology recommendations may need surgery consult for replacement if need for dialysis or removal if renal function remains stable with IV diuretics 02/21/24: * Catheter removed * [place] for pain and discomfort (6) Paroxysmal atrial fibrillation: Code(s): I48.0 - Paroxysmal atrial fibrillation Status: Chronic Assessment and Plan: * rate controlled * resume patient's Eliquis/but need to hold for possible surgery (7) Hypothyroidism: Code(s): E03.9 - Hypothyroidism, unspecified Status: Acute Assessment and Plan: * TSH >17 * T4 pending * resume levothyroxine (8) Diabetes: Code(s): E11.9 - Type 2 diabetes mellitus without complications Status: Chronic Assessment and Plan: * Accu-Cheks a.c. 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, unspecified lower leg, subsequent encounter Status: Acute (10) Anemia of chronic disease: Code(s): D63.8 - Anemia in other chronic diseases classified elsewhere Status: Acute Assessment and Plan: * Likely secondary to CKD * no overt bleeding * Hgb 9.7 * continue to monitor will transfuse PRBC if Hgb <7.0 (11) Cellulitis of left leg: Code(s): L03.116 - Cellulitis of left lower limb Status: Acute Assessment and Plan: Erythema and swelling LLE with ulcerations no WBC * Started on oral Bactrim * Wound consulted 02/21/24 * Improving slowly still erythema and warm to touch * Switched to Kelflex for renal protection * added doxycycline for gram positive coverage * wound culture pending Plan Code status: Full code per patient DVT prophylaxis: Eliquis Stress ulcer prophylaxis: Protonix 40 daily PT/OT notes: PT/OT pending Disposition: patient was admitted to the medical unit due to fluid overload will continue with IV Bumex per Nephrology will need to evaluate response to IV diuretics and monitor renal function dialysis catheter removed today 12/9. continue with diuresis can likely discharge home in a few days if tolerating diuresis. Time Spent With Patient Time with patient: 15 - 25 minutes Subjective Date/time seen: 02/21/24 09:06 Interval history: Patient is a 68-year-old female who was admitted to the medical unit for further evaluation treatment of fluid overload patient with history combined systolic and diastolic heart failure as well as end-stage renal disease who has not been dialyzed for over a week. 02/21/2024: Patient doing well post procedure but did have pain at the catheter removal site. LLE with minimal improvement to erythema but swelling improved, patient reported minimal pain to LLE. Adding gram positive coverage and getting wound culture. Review of Systems Review of Systems: 12 systems were reviewed and are negativ e except for as per HPI. All systems reviewed & are unremarkable except as noted in HPI and below Exam Narrative: * GENERAL: acute on chronically ill appearing pleasant female Alert and oriented x 3. No acute distress. * EYES: PERRLA * HEENT: Moist mucous membranes. * LUNGS: minimal crackles BLL to auscultation bilaterally. No accessory muscle use. * CARDIOVASCULAR: Irregularly irregular. No murmur. No JVD. S1-S2 * ABDOMEN: Soft, non tenderness and non-distended. No palpable masses. obese * EXTREMITIES: Left leg is significantly edematous and she also has edema of the right [id number] amputation . * SKIN: Multiple shallow ulcerations of varying sizes and scattered excoriations on all extremities. Left lower extremity is erythematous warm and mildly tender to touch. * NEUROLOGIC: No focal neurological deficits. CN II-XII grossly intact * PSYCHIATRIC: Appropriate mood and affect. Good judgement and insight. Objective Data Vital Signs Vital Signs: Vital Signs - 24 hr 02/20/24 14:00 02/20/24 10:00 02/20/24 10:00 Temperature 98.3 F Pulse Rate 78 78 Respiratory Rate 15 Blood Pressure 118/79 Pulse Oximetry 96 96 Oxygen Delivery Room Air 02/20/24 12:00 02/20/24 16:00 02/20/24 21:09 Temperature 97.7 F Pulse Rate 79 80 80 Respiratory Rate 18 Blood Pressure 149/69 H Pulse Oximetry 95 Oxygen Delivery 02/20/24 20:00 02/21/24 00:00 02/21/24 04:52 Temperature Pulse Rate 78 86 79 Respiratory Rate Blood Pressure Pulse Oximetry Oxygen Delivery 02/21/24 05:19 Temperature 96.7 F L Pulse Rate 80 Respiratory Rate 18 Blood Pressure 143/71 H Pulse Oximetry 96 Oxygen Delivery Intake/Output Intake/Output: Intake & Output 02/18/24 02/19/24 02/20/24 02/21/24 23:59 23:59 23:59 23:59 Intake Total 1220 1140 1750 290 Output Total 2375 9120 2600 1100 [facility] -[phone] Meds/Results Medications: Active Medications Generic Name Dose Route Start Last Admin Trade Name Freq PRN Reason Stop Dose Admin Atorvastatin Calcium 40 mg 02/18/24 09:00 02/20/24 10:04 Atorvastatin 40 Mg Tablet PO 40 mg DAILY SELMA Administration Bumetanide 1 mg 02/19/24 09:00 02/20/24 16:58 Bumetanide Inj 1 Mg/4 Ml Vial IV PUSH 1 mg BID SELMA Administration Cephalexin HCl 500 mg 02/20/24 18:00 02/21/24 05:52 Cephalexin 500 Mg Capsule PO 500 mg Q6HR SELMA Administration Dextrose 12.5 gm 02/17/24 23:23 Dextrose 50% 25 Gm/50 Ml Syringe IV PUSH PRN PRN Hypoglycemia Protocol Epoetin Marc-epbx 10,000 units 02/21/24 09:00 Epoetin Marc-Epbx 10,000 Units/Ml Vial SUB-Q MOWEFR@09 SELMA Famotidine 20 mg 02/18/24 09:00 02/20/24 10:04 Famotidine 20 Mg Tablet PO 20 mg DAILY SELMA Administration Glucagon 1 mg 02/17/24 23:23 Glucagon For Inj 1 Mg Vial IM PRN PRN Hypoglycemia Protocol Glucose 15 gm 02/17/24 23:23 Glucose Oral Gel 15 Gm Of Glucse In 37.5 Gm Tube PO PRN PRN Hypoglycemia Protocol Hydroxyzine Pamoate 50 mg 02/17/24 23:56 02/20/24 23:44 Hydroxyzine Pamoate 25 Mg Capsule PO 50 mg TID PRN Administration Anxiety Dextrose 1,000 mls @ 100 mls/hr 02/17/24 23:23 Dextrose 5% 1,000 Ml IVPB PRN PRN Hypoglycemia Protocol Insulin Aspart 3 - 6 units 02/18/24 08:00 02/20/24 18:26 Insulin Aspart (*Bkc) 100 Units/Ml SUB-Q Not Given TIDWM [facility] Protocol Insulin Aspart 1 - 3 units 02/18/24 21:00 02/20/24 21:18 Insulin Aspart (*Bkc) 100 Units/Ml SUB-Q 1 units HS SELMA Administration Protocol Insulin Glargine 8 units 02/18/24 21:00 02/20/24 21:18 Insulin Glargine (Lantus) 1,000 Units/10 Ml Vial SUB-Q 8 units HS [facility] Administration Levothyroxine Sodium 25 mcg 02/18/24 06:30 02/21/24 05:52 Levothyroxine Sodium 25 Mcg Tablet PO 25 mcg DAILY@0630 SELMA Administration Levothyroxine Sodium 112 mcg 02/18/24 06:30 02/21/24 05:52 Levothyroxine Sodium 112 Mcg Tablet PO 112 mcg DAILY@0630 SELMA Administration Trazodone HCl 50 mg 02/18/24 21:00 02/20/24 21:18 Trazodone Hcl 50 Mg Tablet PO 50 mg HS SELMA Administration Radiology Results: ITS Impressions Chest X-Ray 02/17/24 15:01 IMPRESSION: 1. Mild atelectasis in the lower lung zones. 2. Retraction of the central line, now with tip in the right brachiocephalic vein. Labs Labs: Laboratory Results - last 24 hr 02/20/24 02/20/24 02/20/24 12:12 17:17 21:13 WBC RBC Hgb Hct MCV MCH MCHC RDW Plt Count MPV Immature Gran % (Auto) Neut % (Auto) Lymph % (Auto) [place] % (Auto) Eos % (Auto) Baso % (Auto) Lymph # (Auto) [place] # (Auto) Eos # (Auto) Baso # (Auto) Abs Immat Gran (auto) Absolute Neuts (auto) Absolute Nucleated RBC Nucleated RBC % Sodium Potassium Chloride Carbon Dioxide Anion Gap BUN Creatinine Estim Creat Clear Calc Estimated GFR Glucose POC Capillary Glucose 178 H 187 H 207 H Calcium Phosphorus Magnesium Total Bilirubin AST ALT Alkaline Phosphatase Total Protein Albumin 02/21/24 02/21/24 02/21/24 05:34 05:34 08:58 WBC 5.5 RBC 3.29 L Hgb 9.7 L Hct 31.1 L MCV 94.5 MCH 29.5 MCHC 31.2 L RDW 18.4 H Plt Count 217 MPV 10.4 Immature Gran % (Auto) 0.5 Neut % (Auto) 59.7 Lymph % (Auto) 28.3 [place] % (Auto) 7.7 Eos % (Auto) 3.1 Baso % (Auto) 0.7 Lymph # (Auto) 1.55 [place] # (Auto) 0.4 Eos # (Auto) 0.2 Baso # (Auto) 0.0 Abs Immat Gran (auto) 0.03 Absolute Neuts (auto) 3.3 Absolute Nucleated RBC 0.000 Nucleated RBC % 0.0 Sodium 138 Potassium 4.4 Chloride 109 H Carbon Dioxide 23 Anion Gap 6 BUN 48 H Creatinine 2.30 H Estim Creat Clear Calc 30 Estimated GFR 21 L Glucose 151 H POC Capillary Glucose 125 H Calcium 8.2 L Phosphorus Cancelled 5.0 H Magnesium 1.9 Total Bilirubin 0.6 AST 16 ALT 11 Alkaline Phosphatase 160 H Total Protein 6.0 L Albumin 3.2 L Quality VTE Prophylaxis VTE prophylaxis: pharmacologic ordered -Patient's previous records reviewed on admission -ER notes reviewed in detail on admission -discussed all findings and current treatment plan with patient/Family/POA -Consultations reviewed for recommendations -Patient's disposition for safe discharge discussed with ed case manager Dictation performed by [employer] direct speech recognition software, therefore patents examiner variants and typographical errors may occur. Hospitalist MIPS Advance Care Plan I have confirmed that the patient's Advanced Care Plan is present, code status is documented, or surrogate decision maker is listed in patient medical record.: Yes Medication Reconciliation I have utilized all available resources to obtain, update and review the patients current medications (includes all prescriptions, OTC, herbals, ca nnabis, and nutritional supplements).: Yes The patient is not eligible for med reconciliation; the patient is in a emergent medical situation where delaying treatment would jeopardize the patients health.: No
--- NOTE | 2024-02-21 09:58 | WPDHPUPDATE1 ---
History and Physical Update Update Date/Time: 02/21/24 09:58 History and Physical has been reviewed, including an updated exam of the patient. There are NO changes in the patient's condition. Risks, benefits, and alternatives have been discussed and questions answered. Patient agrees to proceed with procedure. will setup for removal of right subclavian tunneled hemodialysis catheter in the OR
--- NOTE | 2024-02-21 10:29 | P.PNAN_ITS ---
Anes - Initial Pre Proc Eval Procedure: Operation Date: 02/21/24 14:00 Proposed Procedures p Removal Tunneled Dialysis Catheter - Radha Cuevas MD Date/Time: 02/21/24 10:29 Surgeon: Bobbi Ortega APRN Pre Op Diagnosis: Orthopnea, fluid overload Patient Data Age: 68 Gender: F Height: 1.78 m Weight: 115.3 kg Last Vital Signs Temp 35.9 C L 02/21/24 05:19 Pulse 80 02/21/24 05:19 Resp 18 02/21/24 05:19 BP 143/71 H 02/21/24 05:19 Pulse Ox 96 02/21/24 05:19 O2 Del Method Room Air 02/20/24 10:00 FiO2 21 02/19/24 07:58 Allergies Allergy/AdvReac Type Severity Reaction Status Date / Time semaglutide [From Ozempic] AdvReac Unknown Verified 11/19/23 09:49 Home Medications Medication Instructions Recorded Confirmed Type atorvastatin 40 mg tablet 40 mg PO DAILY 12/09/21 02/17/24 History hydroxyzine pamoate 50 mg capsule 50 mg PO TID PRN Anxiety 03/30/22 02/17/24 History levothyroxine 125 mcg tablet 137 mcg PO DAILY 04/17/22 02/17/24 History insulin pen,reusable,BT,lispro 12/14/22 02/17/24 History (InPen (for Humalog) Blue subcutaneous) trazodone 50 mg tablet 50 mg PO HS 10/11/23 02/17/24 History apixaban 5 mg tablet (Eliquis) 2.5 mg PO BID #30 tabs 12/03/23 02/17/24 Rx famotidine 40 mg tablet 20 mg PO DAILY #90 tabs 12/03/23 02/17/24 Rx insulin aspart U-100 100 unit/mL 3 - 6 unit subcut TIDWM #30 mL 12/03/23 02/17/24 Rx subcutaneous solution (Novolog U-100 Insulin aspart) insulin degludec 100 unit/mL (3 8 unit (0.08 mL) subcut HS #3 mL 12/03/23 02/17/24 Rx mL) subcutaneous pen (Tresiba FlexTouch U-100 insulin) amlodipine 2.5 mg tablet 2.5 mg PO DAILY 02/17/24 02/17/24 History bumetanide 1 mg tablet 1 mg PO BID 02/17/24 02/17/24 History Laboratory Tests 02/20/24 02/20/24 02/20/24 12:12 17:17 21:13 WBC RBC Hgb Hct MCV MCH MCHC RDW Plt Count MPV Immature Gran % (Auto) Neut % (Auto) Lymph % (Auto) [place] % (Auto) Eos % (Auto) Baso % (Auto) Lymph # (Auto) [place] # (Auto) Eos # (Auto) Baso # (Auto) Abs Immat Gran (auto) Absolute Neuts (auto) Absolute Nucleated RBC Nucleated RBC % Sodium Potassium Chloride Carbon Dioxide Anion Gap BUN Creatinine Estim Creat Clear Calc Estimated GFR Glucose POC Capillary Glucose 178 H mg/dl 187 H mg/dl 207 H mg/dl (65-105) (65-105) (65-105) Calcium Phosphorus Magnesium Total Bilirubin AST ALT Alkaline Phosphatase Total Protein Albumin 02/21/24 02/21/24 02/21/24 05:34 05:34 08:58 WBC 5.5 K/mm3 (4.5-10.0) RBC 3.29 L M/mm3 (4.2-5.4) Hgb 9.7 L g/dL (12.0-15.0) Hct 31.1 L % (37.0-47.0) MCV 94.5 fl (80-100) MCH 29.5 pg (26-34) MCHC 31.2 L g/dl (32-36) RDW 18.4 H % (11.5-14.5) Plt Count 217 k/mm3 (150-375) MPV 10.4 fl (7.4-10.4) Immature Gran % (Auto) 0.5 % (0-0.5) Neut % (Auto) 59.7 % (45.5-73.1) Lymph % (Auto) 28.3 % (18.3-44.2) [place] % (Auto) 7.7 % (2.6-8.5) Eos % (Auto) 3.1 % (0-4.4) Baso % (Auto) 0.7 % (0.2-1.2) Lymph # (Auto) 1.55 K/mm3 (0.9-3.2) [place] # (Auto) 0.4 K/mm3 (0.1-0.6) Eos # (Auto) 0.2 K/mm3 (0-0.3) Baso # (Auto) 0.0 K/mm3 (0.0-0.1) Abs Immat Gran (auto) 0.03 K/mm3 (0.00-0.031) Absolute Neuts (auto) 3.3 K/mm3 (1.3-6.7) Absolute Nucleated RBC 0.000 K/mm3 (0.0-0.012) Nucleated RBC % 0.0 % (0.0-0.2) Sodium 138 mmol/L (137-145) Potassium 4.4 mmol/L (3.4-5.0) Chloride 109 H mmol/L (98-107) Carbon Dioxide 23 mmol/L (22-30) Anion Gap 6 mmol/L (4-12) BUN 48 H mg/dL (7-17) Creatinine 2.30 H mg/dL (0.7-1.0) Estim Creat Clear Calc 30 ml/min Estimated GFR 21 L (59 - ) Glucose 151 H mg/dL (65-110) POC Capillary Glucose 125 H mg/dl (65-105) Calcium 8.2 L mg/dL (8.4-10.2) Phosphorus Cancelled 5.0 H mg/dL (2.5-4.5) Magnesium 1.9 mg/dL (1.6-2.3) Total Bilirubin 0.6 mg/dL (0.2-1.3) AST 16 U/L (14-36) ALT 11 U/L (6-35) Alkaline Phosphatase 160 H U/L (38-126) Total Protein 6.0 L g/dL (6.3-8.2) Albumin 3.2 L g/dL (3.5-5.1) Patient hx anesthesia problems: none Family hx anesthesia problems: none Results Review: All pre-operative results and documents have been reviewed as part of the pre- operative evaluation. [facility] Past Medical History Medical History Chronic anemia Chronic anticoagulation Chronic kidney disease Combined systolic and diastolic congestive heart failure Coronary artery disease Diabetic neuropathy Hyperlipidemia Hypertension Insulin dependent type 2 diabetes mellitus Neurogenic bladder Osteomyelitis Paroxysmal atrial fibrillation Right-sided heart failure Surgical History Surgical History History of amputation of toe History of coronary artery bypass graft History of hysterectomy History of right below knee amputation Family History Family History Sibling Thymus cancer Diabetes mellitus All 4 siblings Lung cancer, lower lobe Melanoma Lymph edema Mother Family history of emphysema Father Acute myocardial infarction Social History Social History Social History: Surrogate medical decision maker: Trung Mcgrath, daughter. Code status: Full code. Smoking packs per day: 1 Smoking cigarettes per day: 20.0 Years smoked: 30 Smoking pack-years: 30.00 Smoking status: Former smoker Tobacco type: cigarettes Second hand tobacco smoke exposure: Yes ( smokes) Smoking end date: 02/24/07 Alcohol intake: never Substance use: never Substance use type: does not use Do You Feel Safe in your Home?: Yes Lack of Transportation: No Lack of Food: Never True Current Housing: I Have Housing Concerned About Future Housing: No Difficulty Paying Gas/Electric Bills: No Difficulty Paying for Meds: No Currently Unemployed: No Education: High School Diploma/GED Difficulty w/ Childcare or Family Care: No Spiritual care concerns: No Anes - Eval Final PreProcedure Day of Procedure 02/21/24 10:29 Patient weight: obese Heart: regular rate and rhythm Lungs: clear to auscultation Airway: Mallampati scale class II Neurological: alert and oriented Last oral intake: >/= 8 hours ASA classification: IV Emergent: no Anesthetic plan: proceed Anesthesia type and monitoring: general GIVS and standard monitoring Results Review: All pre-operative results and documents have been reviewed as part of the pre- operative evaluation. Informed Consent: The patient's anesthetic plan and its attendant risks and benefits were discussed with the patient/family/POA. Questions were solicited and answers provided to the satisfaction of the patient/family/POA.
[2024-02-21] MEDS: LIDO 1%/EPINEPHRINE 1:100,000 50 ML VIAL 20 ML INFILTRATE (11:12)
[2024-02-21] MEDS: SODIUM CHLORIDE 0.9% IV 500 ML 30 ML IV CONT (11:18)
[2024-02-21 11:23] LABS: Glucose Point of Care 112 mg/dl (65-105)
--- NOTE | 2024-02-21 11:26 | W.PM.PROC2 ---
Procedure Note - Detailed Date of Procedure 02/21/24 Pre-op Diagnosis chronic renal disease Post-op Diagnosis Same Procedure Performed removal right subclavian tunneled hemodialysis catheter Surgeon Radha Cuevas MD Anesthesia MAC and Local Indications 68-year-old female that had previously placed tunneled dialysis catheter now with recovered kidney function. The catheter is also noted to have retracted quite a bit and is in the brachiocephalic vein Findings removal of right subclavian tunneled hemodialysis catheter Description of Procedure The patient was taken the operating room placed in the supine position. After adequate induction of MAC anesthesia, the patient was prepped and draped in the normal sterile fashion. A time-out was then done to verify the patient's identity, as well as the procedure being performed. I began by localizing the area in and around this catheter, especially around the cuff. I then used a hemostat to bluntly dissect around the cuff. Once I was able to free up the cuff, I was able to place gentle traction on the catheter itself. The catheter was then subsequently removed in full. We then held pressure at the level the right subclavian vein for approximately 5 minutes. Hemostasis was obtained this point. A pressure dressing was then placed. The patient tolerated the procedure and was alert and awake in the operating postoperatively. She will be transferred to the recovery room in stable condition. Estimated Blood Loss 10 Pathology None sent Complications No immediate complications Condition Stable Disposition PACU [facility] Billing Surgery - Charge Forward: Surgery Billing
[2024-02-21] MEDS: fentaNYL CITRATE INJ (*CRX) 100 MCG/2 ML VIAL 25 MCG IV PUSH (11:52)
--- NOTE | 2024-02-21 11:58 | PCNFU ---
Nutrition Follow-Up Complete: Increased protein energy needs related to wound healing as evidenced by pressure injury Diet advancement - diet was advanced to renal, NPO again for dialysis cath removal today. Adequate PO intake - Intakes good 100% on renal diet. Goal: Pt current nutrition is NPO for procedure. Nutrition recommendation: renal dialysis diet when advanced after procedure. Add [place] BID for wound healing when diet is advanced (90 kcal, 2.5 g protein) Last recorded weight is 115.3 kg. Bowel Motility: +1 BM 02/20/24 Labs Reviewed: Hgb 9.7, Hct 31.1, Alb 3.2, GFR 21, BUN 48, Cre 2.3, Glu 151 Meds Noted: Bumex, insulin Skin: Stage 2 pressure injury to buttock Additional Notes: Intakes good on renal diet. Will add [place] for wound healing when diet advanced Monitoring diet orders, weights, labs, intakes, wounds, plan of care Follow up in 3 days
--- NOTE | 2024-02-21 12:54 | PCOTNOTE ---
The patient initial occupational therapy evaluation was not able to be completed on 02/20 due to being status post right subclavian dialysis port removal. Will plan to continue follow and evaluate whenever.
[2024-02-21] MEDS: FAMOTIDINE 20 MG TABLET PO (13:50)
[2024-02-21] MEDS: EPOETIN ALFA-EPBX 10,000 UNITS/ML VIAL 10000 UNITS SUB-Q (13:50)
[2024-02-21] MEDS: ATORVASTATIN 40 MG TABLET PO (13:50)
[2024-02-21] MEDS: HYDROcodone/acetaminophen (*CRX) 5-325 MG TABLET 1 TAB PO (13:51)
[2024-02-21] MEDS: BUMETANIDE INJ 1 MG/4 ML VIAL IV PUSH ×2 (13:51→21:44)
[2024-02-21] MEDS: hydrOXYzine pamoate 25 MG CAPSULE 50 MG PO (13:59)
[2024-02-21 16:32] LABS: Glucose Point of Care 153 mg/dl (65-105)
[2024-02-21 21:06] LABS: Glucose Point of Care 212 mg/dl (65-105)
[2024-02-21] MEDS: DOXYCYCLINE HYCLATE 100 MG TABLET PO (21:29)
[2024-02-21] MEDS: INSULIN GLARGINE (LANTUS) 1,000 UNITS/10 ML VIAL 8 UNITS SUB-Q (21:29)
[2024-02-21] MEDS: traZODone HCL 50 MG TABLET PO (21:29)
[2024-02-21] MEDS: INSULIN ASPART (*BKC) 100 UNITS/ML SUB-Q (21:29)
--- NOTE | 2024-02-21 21:45 | PC.NURSE ---
Per hospitalist give second dose of Bumex in 9pm hour since patient got first dose of the day after she came back from surgery and it was administered later than usually. See MAR
[2024-02-22] VITALS (8 sets, daily range): BP systolic 140–142; BP diastolic 60–74; PULSE 69–88; RESP 16; TEMP 36.4–36.8; O2SAT 93–99
[2024-02-22] MEDS: CEPHALEXIN 500 MG CAPSULE PO ×4 (00:18→17:44)
[2024-02-22] MEDS: LEVOTHYROXINE SODIUM 112 MCG TABLET PO (06:30)
[2024-02-22] MEDS: LEVOTHYROXINE SODIUM 25 MCG TABLET PO (06:30)
[2024-02-22] MEDS: hydrOXYzine pamoate 25 MG CAPSULE 50 MG PO ×2 (06:45→20:58)
[2024-02-22 08:35] LABS: Glucose Point of Care 147 mg/dl (65-105)
[2024-02-22] MEDS: BUMETANIDE INJ 1 MG/4 ML VIAL IV PUSH (08:49)
[2024-02-22] MEDS: DOXYCYCLINE HYCLATE 100 MG TABLET PO ×2 (08:49→20:58)
[2024-02-22] MEDS: FAMOTIDINE 20 MG TABLET PO (08:49)
[2024-02-22] MEDS: ATORVASTATIN 40 MG TABLET PO (08:49)
[2024-02-22 10:22] LABS: Basophils Percent Auto 0.7 % (0.2-1.2); Eosinophils Absolute Auto 0.2 K/mm3 (0-0.3); Eosinophils Percent Auto 3.6 % (0-4.4); Hematocrit 31.8 % (37.0-47.0); Hemoglobin 9.8 g/dL (12.0-15.0); Immature Granulocyte Absolute 0.03 K/mm3 (0.00-0.031); Immature Granulocyte Percent A 0.5 % (0-0.5); Lymphocytes Absolute Auto 1.21 K/mm3 (0.9-3.2); Lymphocytes Percent Auto 19.9 % (18.3-44.2); Mean Corpuscular HGB Conc 30.8 g/dl (32-36); Mean Corpuscular Hemoglobin 29.3 pg (26-34); Mean Corpuscular Volume 95.2 fl (80-100); Mean Platelet Volume 10.3 fl (7.4-10.4); Monocytes Absolute Auto 0.3 K/mm3 (0.1-0.6); Monocytes Percent Auto 5.6 % (2.6-8.5); Neutrophils Absolute Auto 4.2 K/mm3 (1.3-6.7); Neutrophils Percent Auto 69.7 % (45.5-73.1); Platelet Count Result 232 k/mm3 (150-375); Red Blood Count 3.34 M/mm3 (4.2-5.4); Red Cell Distribution Width 18.2 % (11.5-14.5); White Blood Count 6.1 K/mm3 (4.5-10.0)
[2024-02-22 10:31] LABS: Alanine Aminotransferase 10 U/L (6-35); Albumin Level 3.2 g/dL (3.5-5.1); Alkaline Phosphatase 165 U/L (38-126); Anion Gap 7 mmol/L (4-12); Aspartate Amino Transferase 16 U/L (14-36); Bilirubin,Total 0.6 mg/dL (0.2-1.3); Blood Urea Nitrogen 49 mg/dL (7-17); Calcium 8.3 mg/dL (8.4-10.2); Carbon Dioxide 24 mmol/L (22-30); Chloride 108 mmol/L (98-107); Estimated CRCL calculation 27 ml/min; Estimated Glomerular Filt Rate 19; Glucose 163 mg/dL (65-110); Magnesium 1.9 mg/dL (1.6-2.3); Phosphorus 4.8 mg/dL (2.5-4.5); Potassium 4.7 mmol/L (3.4-5.0); Sodium 139 mmol/L (137-145)
[2024-02-22 11:55] LABS: Glucose Point of Care 176 mg/dl (65-105)
--- NOTE | 2024-02-22 12:16 | P.PNNP_ITS ---
Progress Note: A&P Assessment and Plan (1) Chronic kidney disease, stage IV (severe): Code(s): N18.4 - Chronic kidney disease, stage 4 (severe) Status: Chronic Assessment and Plan: * new baseline creatinine seems ro run around 1.7 - 2.3mg/dl * due to due to biopsy proven diabetic nephropathy/nephrosclerosis (biopsies done in November 2021 and November 2023) in conjunction with vascular disease and leftovers from previous SHREYA/ARF * RENAL BIOPSY (done on 11/24/23): class III advanced nodular diabetic glomerulosclerosis with ~ 60% interstitial fibrosis and tubular atrophy * creatinine had worsened to 4.9mg/dl during November 2023 hospitalization complicated by anasarca/volume overload, diminished urine output despite high dose diuretic therapy, metabolic acidosis, and hyperkalemia which led to initiation of renal replacement therapy/dialysis * HEAD DOFFER/dialysis stopped about a week ago prior to admission due to evidence of renal recovery * responsive to IV diuretic therapy * hold IV bumex today * likely transition to oral bumex soon * continue to follow trend of repeat labs and UOP (2) Anasarca: Code(s): R60.1 - Generalized edema Status: Acute Assessment and Plan: * as noted by physical exam and symptoms * localized to LEs and abdominal area with a respiratory component as well * good diuresis noted with IV bumex * follow daily weights, I/Os, and respiratory status (3) Displacement of central venous catheter (CVC): Code(s): T82.528A - Displacement of other cardiac and vascular devices and implants, initial encounter Status: Acute Assessment and Plan: * as noted by admission CXR regarding tunneled HD catheter * since responding to medical therapy, dialysis catheter no longer needed * s/p PermCath removal on 02/20 by Surgery (4) Combined systolic and diastolic congestive heart failure: Code(s): I50.40 - Unspecified combined systolic (congestive) and diastolic (congestive) heart failure Status: Acute Assessment and Plan: * suspect playing a role with volume status along with kidney disease * last Echo on 11/2023 noted: * EF 40-45% * severe TR * moderate MR * pulmonary hypertension * continue diuresis as tolerated * follow weight and I/Os (5) Chronic anemia: Code(s): D64.9 - Anemia, unspecified Status: Chronic Assessment and Plan: * suspect related to CKD * s/p EGD and colonoscopy on last hospitalization - no active bleeding lesions * dose with Retacrit while hospitalized * follow trend of H/H (6) Cellulitis of left leg: Code(s): L03.116 - Cellulitis of left lower limb Status: Acute Assessment and Plan: * as noted by erythema and swelling in LLE with ulcerations * however, WBC normal * on antibiotics * Wound care consulted/following (7) Paroxysmal atrial fibrillation: Code(s): I48.0 - Paroxysmal atrial fibrillation Status: Chronic Assessment and Plan: * rate control strategy * Eliquis on hold in case of possible/needed surgery/procedures (8) Hypertension: Code(s): I10 - Essential (primary) hypertension Status: Chronic Assessment and Plan: * reasonable control at this time * follow trend of hemodynamics (9) Type 2 diabetes mellitus, uncontrolled, with renal complications: Status: Chronic Assessment and Plan: * follow accu-cheks * glycemic control per hospitalists Will continue to follow Subjective Date/time seen: 02/22/24 12:16 Interval history: Follow-up for chronic kidney disease. Unable to see yesterday as out of room and in OR for procedure -- s/p removal of tunneled HD catheter yesterday and tolerated this intervention reasonably well; continue to make good urine output in response of IV diuretics although renal function/creatinine slightly up by recent labs; she reports improvement in her lower extremity edema; no apparent distress voiced at the time of my visit. Exam 2 Narrative: General: WD/WN female in NAD Heart: normal S1 and S2; no rub Lungs: clear anteriorly; decreased at bases Abdomen: soft, nontender, nondistended, positive bowel sounds Extremities: no cyanosis or clubbing; 1+ bilateral edema; s/p right BKA Skin: noted scattered abrasions over LEs Objective Data Vital Signs Vital Signs: Vital Signs Temp Pulse Resp BP Pulse Ox O2 Del Method 02/22/24 12:00 97.6 F 88 16 140/74 99 02/22/24 08:00 76 02/22/24 08:00 Room Air 02/22/24 04:00 69 02/22/24 00:00 69 02/21/24 20:55 97.7 F 75 20 141/78 H 98 02/21/24 20:00 69 Intake/Output Intake/Output: Intake & Output 02/19/24 02/20/24 02/21/24 02/22/24 23:59 23:59 23:59 23:59 Intake Total 1140 1750 730 920 Output Total 2500 2600 2450 1100 [facility] -1360 -850 -1720 -180 Meds/Results Medications: Active Medications Generic Name Dose Route Start Last Admin Trade Name Freq PRN Reason Stop Dose Admin Hydrocodone Bitart/Acetaminophen 1 tab 02/21/24 13:27 02/21/24 13:51 Hydrocodone/Acetaminophen (*Crx) 5-325 Mg Tablet PO 1 tab Q4H PRN Administration Pain Rated 4-6 Atorvastatin Calcium 40 mg 02/18/24 09:00 02/22/24 08:49 Atorvastatin 40 Mg Tablet PO 40 mg DAILY SELMA Administration Bumetanide 1 mg 02/19/24 09:00 02/22/24 08:49 Bumetanide Inj 1 Mg/4 Ml Vial IV PUSH 1 mg BID SELMA Administration Cephalexin HCl 500 mg 02/20/24 18:00 02/22/24 17:44 Cephalexin 500 Mg Capsule PO 500 mg Q6HR SELMA Administration Dextrose 12.5 gm 02/17/24 23:23 Dextrose 50% 25 Gm/50 Ml Syringe IV PUSH PRN PRN Hypoglycemia Protocol Doxycycline Hyclate 100 mg 02/21/24 21:00 02/22/24 08:49 Doxycycline Hyclate 100 Mg Tablet PO 100 mg Q12HR SELMA Administration Epoetin Marc-epbx 10,000 units 02/21/24 09:00 02/21/24 13:50 Epoetin Marc-Epbx 10,000 Units/Ml Vial SUB-Q 10,000 units MOWEFR@09 SELMA Administration Famotidine 20 mg 02/18/24 09:00 02/22/24 08:49 Famotidine 20 Mg Tablet PO 20 mg DAILY SELMA Administration Glucagon 1 mg 02/17/24 23:23 Glucagon For Inj 1 Mg Vial IM PRN PRN Hypoglycemia Protocol Glucose 15 gm 02/17/24 23:23 Glucose Oral Gel 15 Gm Of Glucse In 37.5 Gm Tube PO PRN PRN Hypoglycemia Protocol Hydroxyzine Pamoate 50 mg 02/17/24 23:56 02/22/24 06:45 Hydroxyzine Pamoate 25 Mg Capsule PO 50 mg TID PRN Administration Anxiety Dextrose 1,000 mls @ 100 mls/hr 02/17/24 23:23 Dextrose 5% 1,000 Ml IVPB PRN PRN Hypoglycemia Protocol Insulin Aspart 3 - 6 units 02/18/24 08:00 02/22/24 17:23 Insulin Aspart (*Bkc) 100 Units/Ml SUB-Q Not Given TIDWM SELMA Protocol Insulin Aspart 1 - 3 units 02/18/24 21:00 02/21/24 21:29 Insulin Aspart (*Bkc) 100 Units/Ml SUB-Q 1 units HS SELMA Administration Protocol Insulin Glargine 8 units 02/18/24 21:00 02/21/24 21:29 Insulin Glargine (Lantus) 1,000 Units/10 Ml Vial SUB-Q 8 units HS [facility] Administration Levothyroxine Sodium 25 mcg 02/18/24 06:30 02/21/24 05:52 Levothyroxine Sodium 25 Mcg Tablet PO 25 mcg DAILY@0630 SELMA Administration Levothyroxine Sodium 112 mcg 02/18/24 06:30 02/21/24 05:52 Levothyroxine Sodium 112 Mcg Tablet PO 112 mcg DAILY@0630 SELMA Administration Trazodone HCl 50 mg 02/18/24 21:00 02/21/24 21:29 Trazodone Hcl 50 Mg Tablet PO 50 mg HS SELMA Administration Radiology Results: ITS Impressions Chest X-Ray 02/17/24 15:01 IMPRESSION: 1. Mild atelectasis in the lower lung zones. 2. Retraction of the central line, now with tip in the right brachiocephalic vein. Labs Labs: Laboratory Tests 02/22/24 10:10 02/22/24 10:10 Calcium 8.3 L Phosphorus 4.8 H Magnesium 1.9 Total Bilirubin 0.6 AST 16 ALT 10 Alkaline Phosphatase 165 H Total Protein 7.0 Albumin 3.2 L Microbiology 02/21/24 15:01 Leg Left Anaerobic Culture - Preliminary
--- NOTE | 2024-02-22 13:03 | P.PNIM_ITS ---
Progress Note: A&P Assessment and Plan (1) Anasarca: Code(s): R60.1 - Generalized edema Status: Acute Assessment and Plan: patient with increased swelling LLE/ABD increased shortness of breath previously on dialysis which was stopped a little over a week ago with renal improvement * IV Bumex b.i.d. * may need dialysis resumed * daily weights * Orr catheter for strict I&Os 02/21/2024: * Patient responding to IV diuretics renal function stable currently * continue with current treatment and monitor renal function and urine output (2) Chronic kidney disease on chronic dialysis: Code(s): N18.6 - End stage renal disease; Z99.2 - Dependence on renal dialysis Status: Acute Assessment and Plan: on dialysis but has not received dialysis for week was discontinued outpatient catheter placement has migrated to the right brachiocephalic vein * IV Bumex b.i.d. * nephrology consulted for further recommendations may need to surgery for central venous catheter * Likely need dialysis even with stable CR at 2.2 * Will attempt medical management with diuretics if no improvement will likely need to resume Dialysis per nephorology * Avoid nephrotoxic drugs. * Monitor antihypertensive drug therapy. * Avoid NSAIDs. * Routine CMP monitoring GFR. * Monitor electrolytes especially potassium. * Antibiotic doses depending on creatinine clearance. * Pharmacy does medications. * Surgery consulted for either tunnel cath removal or replacement 02/20/2024 * Cr small bump 2.30 * will change the oral bactrim to Keflex for renal protection and to avoid worsening of renal function 02/21/2024 * Responding to IV diuretics * monitor urine output and renal function * if continues may not need dialysis with renal stability * Catheter removed 02/21/2024 02/22/2024: * small bump in Cr 2.5 * continue to monitor electrolytes * monitor urine output * wound culture pending will de-escalate ABX once resulted (3) Combined systolic and diastolic congestive heart failure: Code(s): I50.40 - Unspecified combined systolic (congestive) and diastolic (congestive) heart failure Status: Acute Assessment and Plan: the anasarca appears to be more related to her renal disease without dialysis for a week but likely playing role in fluid overload * BNP 17826 * IV Bumex b.i.d. * LAst Echo 11/2023 EF 40-45%/Severe TR, Moderate MR and pulmonary hypertension * EKG AFIB * chest x-ray showing mild atelectasis * Lipid panel, TSH, liver function test. * Daily weight. * strict I&Os * Fall risk assessment. (4) Neurogenic bladder: Code(s): N31.9 - Neuromuscular dysfunction of bladder, unspecified Status: Chronic Assessment and Plan: patient typically straight caths herself at home * patient currently on IV Bumex will place Orr catheter for strict I&Os and reduce risk of infection from increased straight cathing (5) Complication associated with peripherally inserted central catheter: Code(s): T82.9XXA - Unspecified complication of cardiac and vascular prosthetic device, implant and graft, initial encounter Status: Acute Assessment and Plan: * CXR shows migration of catheter tip to the right brachiocephalic vein * waiting on nephrology recommendations may need surgery consult for replacement if need for dialysis or removal if renal function remains stable with IV diuretics 02/21/24: * Catheter removed * [place] for pain and discomfort (6) Paroxysmal atrial fibrillation: Code(s): I48.0 - Paroxysmal atrial fibrillation Status: Chronic Assessment and Plan: * rate controlled * resume patient's Eliquis/but need to hold for possible surgery (7) Hypothyroidism: Code(s): E03.9 - Hypothyroidism, unspecified Status: Acute Assessment and Plan: * TSH >17 * T4 pending * resume levothyroxine (8) Diabetes: Code(s): E11.9 - Type 2 diabetes mellitus without complications Status: Chronic Assessment and Plan: * Accu-Cheks a.c. 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, unspecified lower leg, subsequent encounter Status: Acute (10) Anemia of chronic disease: Code(s): D63.8 - Anemia in other chronic diseases classified elsewhere Status: Acute Assessment and Plan: * Likely secondary to CKD * no overt bleeding * Hgb 9.7 * continue to monitor will transfuse PRBC if Hgb <7.0 (11) Cellulitis of left leg: Code(s): L03.116 - Cellulitis of left lower limb Status: Acute Assessment and Plan: Erythema and swelling LLE with ulcerations no WBC * Started on oral Bactrim * Wound consulted 02/21/24 * Improving slowly still erythema and warm to touch * Switched to Kelflex for renal protection * added doxycycline for gram positive coverage * wound culture pending 02/22/2024 * improving after adding doxycycline * currently waiting on room culture to deescalate antibiotic * no longer warm but still has erythema Plan Code status: Full code per patient DVT prophylaxis: Eliquis Stress ulcer prophylaxis: Protonix 40 daily PT/OT notes: PT/OT pending Disposition: patient was admitted to the medical unit due to fluid overload w ill continue with IV Bumex per Nephrology will need to evaluate response to IV diuretics and monitor renal function dialysis catheter removed today 02/20. continue with diuresis can likely discharge home in a few days if tolerating diuresis. cellulitis improving after adding doxycycline waiting on wound culture can likely discharge home once received if cleared by Nephrology Time Spent With Patient Time with patient: 15 - 25 minutes Subjective Date/time seen: 02/22/24 13:03 Interval history: Patient is a 68-year-old female who was admitted to the medical unit for further evaluation treatment of fluid overload patient with history combined systolic and diastolic heart failure as well as end-stage renal disease who has not been dialyzed for over a week. 02/22/2024: Patient tired today, catheter removal site pain improved, denied CP SOB or pain to LLE, still erythema but improving and no longer warm to touch Review of Systems Review of Systems: 12 systems were reviewed and are negativ e except for as per HPI. All systems reviewed & are unremarkable except as noted in HPI and below Exam Narrative: * GENERAL: acute on chronically ill appearing pleasant female Alert and oriented x 3. No acute distress. * EYES: PERRLA * HEENT: Moist mucous membranes. * LUNGS: minimal crackles BLL to auscultation bilaterally. No accessory muscle use. * CARDIOVASCULAR: Irregularly irregular. No murmur. No JVD. S1-S2 * ABDOMEN: Soft, non tenderness and non-distended. No palpable masses. obese * EXTREMITIES: Left leg is significantly edematous and she also has edema of the right [id number] amputation . * SKIN: Multiple shallow ulcerations of varying sizes and scattered excoriations on all extremities. Left lower extremity is erythematous improving no longer warm to touch * NEUROLOGIC: No focal neurological deficits. * PSYCHIATRIC: Appropriate mood and affect. Good judgement and insight. Objective Data Vital Signs Vital Signs: Vital Signs - 24 hr 02/21/24 14:15 02/21/24 14:19 02/21/24 16:04 Temperature 97.7 F Pulse Rate 83 77 Respiratory Rate 15 Blood Pressure 108/72 Pulse Oximetry 97 Oxygen Delivery Room Air 02/21/24 20:00 02/21/24 20:55 02/22/24 00:00 Temperature 97.7 F Pulse Rate 69 75 69 Respiratory Rate 20 Blood Pressure 141/78 H Pulse Oximetry 98 Oxygen Delivery 02/22/24 04:00 02/22/24 08:00 Temperature Pulse Rate 69 Respiratory Rate Blood Pressure Pulse Oximetry Oxygen Delivery Room Air Intake/Output Intake/Output: Intake & Output 02/19/24 02/20/24 02/21/24 02/22/24 23:59 23:59 23:59 23:59 Intake Total 1140 1750 730 240 Output Total 2500 2600 2450 350 Balance -1360 -850 -1720 -110 Meds/Results Medications: Active Medications Generic Name Dose Route Start Last Admin Trade Name Freq PRN Reason Stop Dose Admin Hydrocodone Bitart/Acetaminophen 1 tab 02/21/24 13:27 02/21/24 13:51 Hydrocodone/Acetaminophen (*Crx) 5-325 Mg Tablet PO 1 tab Q4H PRN Administration Pain Rated 4-6 Atorvastatin Calcium 40 mg 02/18/24 09:00 02/22/24 08:49 Atorvastatin 40 Mg Tablet PO 40 mg DAILY SELMA Administration Bumetanide 1 mg 02/19/24 09:00 02/22/24 08:49 Bumetanide Inj 1 Mg/4 Ml Vial IV PUSH 1 mg BID SELMA Administration Cephalexin HCl 500 mg 02/20/24 18:00 02/22/24 12:38 Cephalexin 500 Mg Capsule PO 500 mg Q6HR SELMA Administration Dextrose 12.5 gm 02/17/24 23:23 Dextrose 50% 25 Gm/50 Ml Syringe IV PUSH PRN PRN Hypoglycemia Protocol Doxycycline Hyclate 100 mg 02/21/24 21:00 02/22/24 08:49 Doxycycline Hyclate 100 Mg Tablet PO 100 mg Q12HR SELMA Administration Epoetin Marc-epbx 10,000 units 02/21/24 09:00 02/21/24 13:50 Epoetin Marc-Epbx 10,000 Units/Ml Vial SUB-Q 10,000 units MOWEFR@09 SELMA Administration Famotidine 20 mg 02/18/24 09:00 02/22/24 08:49 Famotidine 20 Mg Tablet PO 20 mg DAILY SELMA Administration Glucagon 1 mg 02/17/24 23:23 Glucagon For Inj 1 Mg Vial IM PRN PRN Hypoglycemia Protocol Glucose 15 gm 02/17/24 23:23 Glucose Oral Gel 15 Gm Of Glucse In 37.5 Gm Tube PO PRN PRN Hypoglycemia Protocol Hydroxyzine Pamoate 50 mg 02/17/24 23:56 02/22/24 06:45 Hydroxyzine Pamoate 25 Mg Capsule PO 50 mg TID PRN Administration Anxiety Dextrose 1,000 mls @ 100 mls/hr 02/17/24 23:23 Dextrose 5% 1,000 Ml IVPB PRN PRN Hypoglycemia Protocol Insulin Aspart 3 - 6 units 02/18/24 08:00 02/22/24 12:37 Insulin Aspart (*Bkc) 100 Units/Ml SUB-Q Not Given TIDWM SELMA Protocol Insulin Aspart 1 - 3 units 02/18/24 21:00 02/21/24 21:29 Insulin Aspart (*Bkc) 100 Units/Ml SUB-Q 1 units HS SELMA Administration Protocol Insulin Glargine 8 units 02/18/24 21:00 02/21/24 21:29 Insulin Glargine (Lantus) 1,000 Units/10 Ml Vial SUB-Q 8 units HS SELMA Administration Levothyroxine Sodium 25 mcg 02/18/24 06:30 02/21/24 05:52 Levothyroxine Sodium 25 Mcg Tablet PO 25 mcg DAILY@0630 SELMA Administration Levothyroxine Sodium 112 mcg 02/18/24 06:30 02/21/24 05:52 Levothyroxine Sodium 112 Mcg Tablet PO 112 mcg DAILY@0630 SELMA Administration Trazodone HCl 50 mg 02/18/24 21:00 02/21/24 21:29 Trazodone Hcl 50 Mg Tablet PO 50 mg HS SELMA Administration Radiology Results: ITS Impressions Chest X-Ray 02/17/24 15:01 IMPRESSION: 1. Mild atelectasis in the lower lung zones. 2. Retraction of the central line, now with tip in the right brachiocephalic vein. Labs Labs: Laboratory Results - last 24 hr 02/21/24 02/21/24 02/22/24 16:30 21:00 08:30 WBC RBC Hgb Hct MCV MCH MCHC RDW Plt Count MPV Immature Gran % (Auto) Neut % (Auto) Lymph % (Auto) [place] % (Auto) Eos % (Auto) Baso % (Auto) Lymph # (Auto) [place] # (Auto) Eos # (Auto) Baso # (Auto) Abs Immat Gran (auto) Absolute Neuts (auto) Absolute Nucleated RBC Nucleated RBC % Sodium Potassium Chloride Carbon Dioxide Anion Gap BUN Creatinine Estim Creat Clear Calc Estimated GFR Glucose POC Capillary Glucose 153 H 212 H 147 H Calcium Phosphorus Magnesium Total Bilirubin AST ALT Alkaline Phosphatase Total Protein Albumin 02/22/24 02/22/24 10:10 11:50 WBC 6.1 RBC 3.34 L Hgb 9.8 L Hct 31.8 L MCV 95.2 MCH 29.3 MCHC 30.8 L RDW 18.2 H Plt Count 232 MPV 10.3 Immature Gran % (Auto) 0.5 Neut % (Auto) 69.7 Lymph % (Auto) 19.9 [place] % (Auto) 5.6 Eos % (Auto) 3.6 Baso % (Auto) 0.7 Lymph # (Auto) 1.21 [place] # (Auto) 0.3 Eos # (Auto) 0.2 Baso # (Auto) 0.0 Abs Immat Gran (auto) 0.03 Absolute Neuts (auto) 4.2 Absolute Nucleated RBC 0.000 Nucleated RBC % 0.0 Sodium 139 Potassium 4.7 Chloride 108 H Carbon Dioxide 24 Anion Gap 7 BUN 49 H Creatinine 2.50 H Estim Creat Clear Calc 27 Estimated GFR 19 L Glucose 163 H POC Capillary Glucose 176 H Calcium 8.3 L Phosphorus 4.8 H Magnesium 1.9 Total Bilirubin 0.6 AST 16 ALT 10 Alkaline Phosphatase 165 H Total Protein 7.0 Albumin 3.2 L Quality VTE Prophylaxis VTE prophylaxis: pharmacologic ordered -Patient's previous records reviewed on admission -ER notes reviewed in detail on admission -discussed all findings and current treatment plan with patient/Family/POA -Consultations reviewed for recommendations -Patient's disposition for safe discharge discussed with window caser Dictation performed by [employer] direct speech recognition software, therefore pump operator byproducts variants and typographical errors may occur. Hospitalist MIPS Advance Care Plan I have confirmed that the patient's Advanced Care Plan is present, code status is documented, or surrogate decision maker is listed in patient medical record.: Yes Medication Reconciliation I have utilized all available resources to obtain, update and review the patients current medications (includes all prescriptions, OTC, herbals, cannabis, and nutritional supplements).: Yes The patient is not eligible for med reconciliation; the patient is in a emergent medical situation where delaying treatment would jeopardize the patients health.: No
--- NOTE | 2024-02-22 13:57 | WPDANESPN ---
Anes - Prog Note Post-Op Date/Time: 02/22/24 13:57 Cardiovascular status: normal Respiratory status: normal Airway patency: baseline Mental status: baseline Post-Op hydration status: normal Vital Signs: Last Vital Signs Temp 97.7 F 02/21/24 20:55 Pulse 69 02/22/24 04:00 Resp 20 02/21/24 20:55 BP 141/78 H 02/21/24 20:55 Pulse Ox 98 02/21/24 20:55 O2 Del Method Room Air 02/22/24 08:00 O2 Flow Rate 2 02/21/24 12:11 FiO2 21 02/19/24 07:58 Pain Score (VAS): 0/10 I/O: Intake & Output 02/21/24 02/22/24 02/22/24 23:59 07:59 15:59 Intake Total 390 240 Output Total 1050 350 Balance -660 -110 Laboratory Tests 02/22/24 10:10 02/22/24 10:10 02/21/24 02/21/24 02/22/24 16:30 21:00 08:30 WBC RBC Hgb Hct MCV MCH MCHC RDW Plt Count MPV Immature Gran % (Auto) Neut % (Auto) Lymph % (Auto) [place] % (Auto) Eos % (Auto) Baso % (Auto) Lymph # (Auto) [place] # (Auto) Eos # (Auto) Baso # (Auto) Abs Immat Gran (auto) Absolute Neuts (auto) Absolute Nucleated RBC Nucleated RBC % Sodium Potassium Chloride Carbon Dioxide Anion Gap BUN Creatinine Estim Creat Clear Calc Estimated GFR Glucose POC Capillary Glucose 153 H 212 H 147 H Calcium Phosphorus Magnesium Total Bilirubin AST ALT Alkaline Phosphatase Total Protein Albumin 02/22/24 02/22/24 10:10 11:50 WBC 6.1 RBC 3.34 L Hgb 9.8 L Hct 31.8 L MCV 95.2 MCH 29.3 MCHC 30.8 L RDW 18.2 H Plt Count 232 MPV 10.3 Immature Gran % (Auto) 0.5 Neut % (Auto) 69.7 Lymph % (Auto) 19.9 [place] % (Auto) 5.6 Eos % (Auto) 3.6 Baso % (Auto) 0.7 Lymph # (Auto) 1.21 [place] # (Auto) 0.3 Eos # (Auto) 0.2 Baso # (Auto) 0.0 Abs Immat Gran (auto) 0.03 Absolute Neuts (auto) 4.2 Absolute Nucleated RBC 0.000 Nucleated RBC % 0.0 Sodium 139 Potassium 4.7 Chloride 108 H Carbon Dioxide 24 Anion Gap 7 BUN 49 H Creatinine 2.50 H Estim Creat Clear Calc 27 Estimated GFR 19 L Glucose 163 H POC Capillary Glucose 176 H Calcium 8.3 L Phosphorus 4.8 H Magnesium 1.9 Total Bilirubin 0.6 AST 16 ALT 10 Alkaline Phosphatase 165 H Total Protein 7.0 Albumin 3.2 L Microbiology 02/21/24 15:01 Leg Left Anaerobic Culture - Preliminary Post-procedural complaints: none Patient Feedback: Patient satisfied with anesthetic care.
[2024-02-22 17:03] LABS: Glucose Point of Care 179 mg/dl (65-105)
[2024-02-22] MEDS: traZODone HCL 50 MG TABLET PO (20:57)
[2024-02-22] MEDS: INSULIN ASPART (*BKC) 100 UNITS/ML SUB-Q (21:24)
[2024-02-22] MEDS: INSULIN GLARGINE (LANTUS) 1,000 UNITS/10 ML VIAL 8 UNITS SUB-Q (21:24)
[2024-02-22 23:38] LABS: Glucose Point of Care 230 mg/dl (65-105)
[2024-02-23] VITALS (9 sets, daily range): BP systolic 139–150; BP diastolic 56–79; PULSE 72–79; RESP 16–18; TEMP 36.1–36.7; O2SAT 96–97
[2024-02-23] MEDS: LEVOTHYROXINE SODIUM 112 MCG TABLET PO (05:38)
[2024-02-23] MEDS: LEVOTHYROXINE SODIUM 25 MCG TABLET PO (05:38)
[2024-02-23 06:19] LABS: Basophils Absolute Auto 0.1 K/mm3 (0.0-0.1); Basophils Percent Auto 0.9 % (0.2-1.2); Eosinophils Absolute Auto 0.2 K/mm3 (0-0.3); Hematocrit 29.9 % (37.0-47.0); Hemoglobin 9.2 g/dL (12.0-15.0); Immature Granulocyte Absolute 0.02 K/mm3 (0.00-0.031); Immature Granulocyte Percent A 0.4 % (0-0.5); Lymphocytes Absolute Auto 1.42 K/mm3 (0.9-3.2); Lymphocytes Percent Auto 26.3 % (18.3-44.2); Mean Corpuscular HGB Conc 30.8 g/dl (32-36); Mean Corpuscular Hemoglobin 28.9 pg (26-34); Mean Platelet Volume 10.2 fl (7.4-10.4); Monocytes Absolute Auto 0.4 K/mm3 (0.1-0.6); Monocytes Percent Auto 7.6 % (2.6-8.5); Neutrophils Absolute Auto 3.3 K/mm3 (1.3-6.7); Neutrophils Percent Auto 61.8 % (45.5-73.1); Platelet Count Result 211 k/mm3 (150-375); Red Blood Count 3.18 M/mm3 (4.2-5.4); Red Cell Distribution Width 18.1 % (11.5-14.5); White Blood Count 5.4 K/mm3 (4.5-10.0)
[2024-02-23 06:34] LABS: Alanine Aminotransferase 9 U/L (6-35); Alkaline Phosphatase 148 U/L (38-126); Anion Gap 6 mmol/L (4-12); Aspartate Amino Transferase 15 U/L (14-36); Bilirubin,Total 0.6 mg/dL (0.2-1.3); Blood Urea Nitrogen 50 mg/dL (7-17); Calcium 8.2 mg/dL (8.4-10.2); Carbon Dioxide 22 mmol/L (22-30); Chloride 110 mmol/L (98-107); Estimated CRCL calculation 28 ml/min; Estimated Glomerular Filt Rate 20; Glucose 128 mg/dL (65-110); Magnesium 1.9 mg/dL (1.6-2.3); Phosphorus 4.5 mg/dL (2.5-4.5); Potassium 4.4 mmol/L (3.4-5.0); Sodium 138 mmol/L (137-145)
[2024-02-23] MEDS: hydrOXYzine pamoate 25 MG CAPSULE 50 MG PO ×2 (06:39→20:45)
--- NOTE | 2024-02-23 08:10 | PCOTNOTE ---
The patient treatment was not able to be completed. Patient reports she did not sleep last night and she would like to rest at this time. Will plan to continue treatment per plan of care.
[2024-02-23 08:14] LABS: Glucose Point of Care 117 mg/dl (65-105)
[2024-02-23] MEDS: ATORVASTATIN 40 MG TABLET PO (08:14)
[2024-02-23] MEDS: DOXYCYCLINE HYCLATE 100 MG TABLET PO ×2 (08:15→20:44)
[2024-02-23] MEDS: CEPHALEXIN 500 MG CAPSULE PO ×2 (08:15→20:45)
[2024-02-23] MEDS: FAMOTIDINE 20 MG TABLET PO (08:15)
[2024-02-23] MEDS: EPOETIN ALFA-EPBX 10,000 UNITS/ML VIAL 10000 UNITS SUB-Q (08:27)
[2024-02-23 11:56] LABS: Glucose Point of Care 132 mg/dl (65-105)
--- NOTE | 2024-02-23 13:26 | P.PNNP_ITS ---
Progress Note: A&P Assessment and Plan (1) Chronic kidney disease, stage IV (severe): Code(s): N18.4 - Chronic kidney disease, stage 4 (severe) Status: Chronic Assessment and Plan: * new baseline creatinine seems ro run around 1.7 - 2.3mg/dl * due to due to biopsy proven diabetic nephropathy/nephrosclerosis (biopsies done in November 2021 and November 2023) in conjunction with vascular disease and leftovers from previous SHREYA/ARF * RENAL BIOPSY (done on 11/24/23): class III advanced nodular diabetic glomerulosclerosis with ~ 60% interstitial fibrosis and tubular atrophy * creatinine had worsened to 4.9mg/dl during November 2023 hospitalization complicated by anasarca/volume overload, diminished urine output despite high dose diuretic therapy, metabolic acidosis, and hyperkalemia which led to initiation of renal replacement therapy/dialysis * TRAVEL GUIDE/dialysis stopped about a week ago prior to admission due to evidence of renal recovery * responsive to IV diuretic therapy * off IV bumex * transitioned to oral bumex today * continue to follow trend of repeat labs and UOP (2) Anasarca: Code(s): R60.1 - Generalized edema Status: Acute Assessment and Plan: * as noted by physical exam and symptoms * localized to LEs and abdominal area with a respiratory component as well * good diuresis noted with IV bumex * transition to oral bumex today * follow daily weights, I/Os, and respiratory status (3) Displacement of central venous catheter (CVC): Code(s): T82.528A - Displacement of other cardiac and vascular devices and implants, initial encounter Status: Acute Assessment and Plan: * as noted by admission CXR regarding tunneled HD catheter * since responding to medical therapy, dialysis catheter no longer needed * s/p PermCath removal on 02/20 by Surgery (4) Combined systolic and diastolic congestive heart failure: Code(s): I50.40 - Unspecified combined systolic (congestive) and diastolic (congestive) heart failure Status: Acute Assessment and Plan: * suspect playing a role with volume status along with kidney disease * last Echo on 11/2023 noted: * EF 40-45% * severe TR * moderate MR * pulmonary hypertension * continue diuresis as tolerated * follow weight and I/Os (5) Chronic anemia: Code(s): D64.9 - Anemia, unspecified Status: Chronic Assessment and Plan: * suspect related to CKD * s/p EGD and colonoscopy on last hospitalization - no active bleeding lesions * dose with Retacrit while hospitalized * follow trend of H/H (6) Cellulitis of left leg: Code(s): L03.116 - Cellulitis of left lower limb Status: Acute Assessment and Plan: * as noted by erythema and swelling in LLE with ulcerations * however, WBC normal * on antibiotics * Wound care consulted/following (7) Paroxysmal atrial fibrillation: Code(s): I48.0 - Paroxysmal atrial fibrillation Status: Chronic Assessment and Plan: * rate control strategy * probably okay to resume eliquis (8) Hypertension: Code(s): I10 - Essential (primary) hypertension Status: Chronic Assessment and Plan: * reasonable control at this time * follow trend of hemodynamics (9) Type 2 diabetes mellitus, uncontrolled, with renal complications: Status: Chronic Assessment and Plan: * follow accu-cheks * glycemic control per hospitalists Will continue to follow Subjective Date/time seen: 02/23/24 13:26 Interval history: Follow-up for chronic kidney disease. Overall, seems to be doing reasonably well; no apparent distress noted; diuretics transitioned from IV to oral today given rise in creatinine yesterday; still with LE edema but better in general; no other issues/events overnight or earlier this morning. Exam 2 Narrative: General: WD/WN female in NAD Heart: normal S1 and S2; no rub Lungs: clear anteriorly; decreased at bases Abdomen: soft, nontender, nondistended, positive bowel sounds Extremities: no cyanosis or clubbing; 1+ bilateral edema; s/p right BKA Skin: noted scattered abrasions over LEs Objective Data Vital Signs Vital Signs: Vital Signs Temp Pulse Resp BP Pulse Ox O2 Del Method 02/23/24 13:17 97.6 F 76 18 150/75 H 97 02/23/24 12:00 75 02/23/24 08:00 76 02/23/24 08:00 Room Air 02/23/24 04:05 97 F L 73 18 139/56 L 96 02/23/24 04:00 72 02/23/24 00:00 79 02/22/24 21:12 98.3 F 81 16 142/60 H 93 02/22/24 20:00 81 02/22/24 20:00 Room Air Intake/Output Intake/Output: Intake & Output 02/20/24 02/21/24 02/22/24 02/23/24 23:59 23:59 23:59 23:59 Intake Total 1750 730 920 950 Output Total 2600 2450 1100 500 Balance -850 -1720 -180 450 Meds/Results Medications: Active Medications Generic Name Dose Route Start Last Admin Trade Name Freq PRN Reason Stop Dose Admin Hydrocodone Bitart/Acetaminophen 1 tab 02/21/24 13:27 02/21/24 13:51 Hydrocodone/Acetaminophen (*Crx) 5-325 Mg Tablet PO 1 tab Q4H PRN Administration Pain Rated 4-6 Apixaban 2.5 mg 02/23/24 21:00 Apixaban 2.5 Mg Tablet PO Q12HR SELMA Atorvastatin Calcium 40 mg 02/18/24 09:00 02/23/24 08:14 Atorvastatin 40 Mg Tablet PO 40 mg DAILY SELMA Administration Bumetanide 1 mg 02/23/24 17:00 Bumetanide 1 Mg Tablet PO BID SELMA Cephalexin HCl 500 mg 02/23/24 09:00 02/23/24 08:15 Cephalexin 500 Mg Capsule PO 02/28/24 23:59 500 mg Q12HR SELMA Administration Dextrose 12.5 gm 02/17/24 23:23 Dextrose 50% 25 Gm/50 Ml Syringe IV PUSH PRN PRN Hypoglycemia Protocol Doxycycline Hyclate 100 mg 02/21/24 21:00 02/23/24 08:15 Doxycycline Hyclate 100 Mg Tablet PO 02/28/24 23:59 100 mg Q12HR SELMA Administration Epoetin Marc-epbx 10,000 units 02/21/24 09:00 02/23/24 08:27 Epoetin Marc-Epbx 10,000 Units/Ml Vial SUB-Q 10,000 units MOWEFR@09 SELMA Administration Famotidine 10 mg 02/25/24 09:00 Famotidine 10 Mg Tablet PO Q48H SELMA Glucagon 1 mg 02/17/24 23:23 Glucagon For Inj 1 Mg Vial IM PRN PRN Hypoglycemia Protocol Glucose 15 gm 02/17/24 23:23 Glucose Oral Gel 15 Gm Of Glucse In 37.5 Gm Tube PO PRN PRN Hypoglycemia Protocol Hydroxyzine Pamoate 50 mg 02/17/24 23:56 02/23/24 06:39 Hydroxyzine Pamoate 25 Mg Capsule PO 50 mg TID PRN Administration Anxiety Dextrose 1,000 mls @ 100 mls/hr 02/17/24 23:23 Dextrose 5% 1,000 Ml IVPB PRN PRN Hypoglycemia Protocol Insulin Aspart 3 - 6 units 02/18/24 08:00 02/23/24 12:16 Insulin Aspart (*Bkc) 100 Units/Ml SUB-Q Not Given TIDWM SELMA Protocol Insulin Aspart 1 - 3 units 02/18/24 21:00 02/22/24 21:24 Insulin Aspart (*Bkc) 100 Units/Ml SUB-Q 1 units HS SELMA Administration Protocol Insulin Glargine 8 units 02/18/24 21:00 02/22/24 21:24 Insulin Glargine (Lantus) 1,000 Units/10 Ml Vial SUB-Q 8 units HS SELMA Administration Levothyroxine Sodium 25 mcg 02/18/24 06:30 02/23/24 05:38 Levothyroxine Sodium 25 Mcg Tablet PO 25 mcg DAILY@0630 SELMA Administration Levothyroxine Sodium 112 mcg 02/18/24 06:30 02/23/24 05:38 Levothyroxine Sodium 112 Mcg Tablet PO 112 mcg DAILY@0630 SELMA Administration Trazodone HCl 50 mg 02/18/24 21:00 02/22/24 20:57 Trazodone Hcl 50 Mg Tablet PO 50 mg HS SELMA Administration Radiology Results: ITS Impressions Chest X-Ray 02/17/24 15:01 IMPRESSION: 1. Mild atelectasis in the lower lung zones. 2. Retraction of the central line, now with tip in the right brachiocephalic vein. Labs Labs: Laboratory Tests 02/23/24 06:09 02/23/24 06:09 Calcium 8.2 L Phosphorus 4.5 Magnesium 1.9 Total Bilirubin 0.6 AST 15 ALT 9 Alkaline Phosphatase 148 H Total Protein 6.0 L Albumin 3.0 L Microbiology 02/21/24 15:01 Leg Left Anaerobic Culture - Preliminary 02/21/24 15:01 Leg Left Aerobic Culture - Preliminary
--- NOTE | 2024-02-23 13:35 | P.PNIM_ITS ---
Progress Note: A&P Assessment and Plan (1) Anasarca: Code(s): R60.1 - Generalized edema Status: Acute Assessment and Plan: * Continue p.o. Bumex * Nephrology following * Weigh daily * DC Orr catheter today (2) Chronic kidney disease on chronic dialysis: Code(s): N18.6 - End stage renal disease; Z99.2 - Dependence on renal dialysis Status: Acute Assessment and Plan: * Continue Bumex oral * Nephrology following * Avoid nephrotoxic medication or IV contrast * Wound culture pending, so far no growth * Creatinine 2.40 (3) Combined systolic and diastolic congestive heart failure: Code(s): I50.40 - Unspecified combined systolic (congestive) and diastolic (congestive) heart failure Status: Acute Assessment and Plan: * Initial BNP [id number] * Continue Bumex oral * Last echo showed EF 40-45%, tricuspid regurgitation, moderate mitral regurgitation and pulmonary hypertension * Chest x-ray showing mild atelectasis * Strict I&O * Continue daily weights (4) Neurogenic bladder: Code(s): N31.9 - Neuromuscular dysfunction of bladder, unspecified Status: Chronic Assessment and Plan: * DC Orr catheter today * Continue straight cath as this is her regular home care (5) Complication associated with peripherally inserted central catheter: Code(s): T82.9XXA - Unspecified complication of cardiac and vascular prosthetic device, implant and graft, initial encounter Status: Acute Assessment and Plan: * PermCath removed with General surgery this admission (6) Paroxysmal atrial fibrillation: Code(s): I48.0 - Paroxysmal atrial fibrillation Status: Chronic Assessment and Plan: * Well controlled * Continue Eliquis (7) Hypothyroidism: Code(s): E03.9 - Hypothyroidism, unspecified Status: Acute Assessment and Plan: * Continue Synthroid (8) Diabetes: Code(s): E11.9 - Type 2 diabetes mellitus without complications Status: Chronic Assessment and Plan: * Blood sugars ranging 128-230 * Hgb A1C 6.7 * Accu checks AC/HS * Moderate dose SSI ordered * Lantus 8 units at bedtime ordered * hypoglycemic protocol in place * Diabetic diet ordered (9) Cellulitis of left leg: Code(s): L03.116 - Cellulitis of left lower limb Status: Acute Assessment and Plan: * awaiting wound cultures * currently on Keflex and Doxycycline Time Spent With Patient Time with patient: Greater than 35 minutes Subjective Date/time seen: 02/23/24 13:35 Interval history: Patient reports itching however is already on hydroxyzine. She denies any new complaints today. Labs and imaging reviewed. Review of Systems Review of Systems: All systems reviewed & are unremarkable except as noted in HPI and below Constitutional: Constitutional: Reports as per HPI and Reports no additional constitutional complaints Eyes: Eyes: Reports as per HPI and Reports no additional eye complaints ENT: Reports system reviewed and no additional complaints, except as documented and Reports as per HPI Cardiovascular: Cardiovascular: Reports as per HPI and Reports no additional cardiovascular complaints Respiratory: Respiratory: Reports as per HPI and Reports no additional respiratory complaints Gastrointestinal: Gastrointestinal: Reports as per HPI and Reports no additional gastrointestinal complaints Genitourinary: Genitourinary: Reports no additional female genitourinary complaints and Reports as per HPI Musculoskeletal: Musculoskeletal: Reports no additional musculoskeletal complaints and Reports as per HPI Integumentary/Breasts: Skin/Breast: Reports system reviewed and no additional complaints, except as docu and Reports as per HPI Neurologic: Reports system reviewed and no additional complaints, except as documented and Reports as per HPI Psychiatric: Psychiatric: Reports no additional psychiatric complaints and Reports as per HPI Exam Narrative: General: In no acute distress, well nourished Head: atraumatic, no encephalopathy Eyes: PERRLA, sclera clear ENT: moist mucous membranes, nasal passages clear Neck: supple, no JVD, no adenopathy, trachea midline Cardiac: Normal S1 and S2. No murmur, gallops or friction rubs, peripheral pulses intact. Respiratory: Lungs clear to auscultation, no adventitious lung sounds, currently on room air Gastrointestinal: soft, non-distended, non-tender, normoactive bowel sounds. : voiding without difficulty. Anasarca noted Extremities:RLE above knee amputation, Anasarca Skin: clean, dry, intact. No wounds or lesions. Neuro: Alert and oriented x4, cranial nerves intact, no neuro deficits. Psych: normal mood, normal affect, interactive Objective Data Vital Signs Vital Signs: Vital Signs - 24 hr 02/22/24 14:29 02/22/24 16:00 02/22/24 20:00 Temperature 97.6 F Pulse Rate 88 84 Respiratory Rate 16 Blood Pressure 140/74 Pulse Oximetry 99 Oxygen Delivery Room Air 02/22/24 20:00 02/22/24 21:12 02/23/24 00:00 Temperature 98.3 F Pulse Rate 81 81 79 Respiratory Rate 16 Blood Pressure 142/60 H Pulse Oximetry 93 Oxygen Delivery 02/23/24 04:00 02/23/24 04:05 02/23/24 08:00 Temperature 97 F L Pulse Rate 72 73 Respiratory Rate 18 Blood Pressure 139/56 L Pulse Oximetry 96 Oxygen Delivery Room Air Intake/Output Intake/Output: Intake & Output 02/20/24 02/21/24 02/22/24 02/23/24 23:59 23:59 23:59 23:59 Intake Total 1750 730 920 470 Output Total 2600 2450 1100 500 Balance -850 -1720 -180 -30 Meds/Results Medications: Active Medications Generic Name Dose Route Start Last Admin Trade Name Freq PRN Reason Stop Dose Admin Hydrocodone Bitart/Acetaminophen 1 tab 02/21/24 13:27 02/21/24 13:51 Hydrocodone/Acetaminophen (*Crx) 5-325 Mg Tablet PO 1 tab Q4H PRN Administration Pain Rated 4-6 Atorvastatin Calcium 40 mg 02/18/24 09:00 02/23/24 08:14 Atorvastatin 40 Mg Tablet PO 40 mg DAILY SELMA Administration Bumetanide 1 mg 02/23/24 17:00 Bumetanide 1 Mg Tablet PO BID SELMA Cephalexin HCl 500 mg 02/23/24 09:00 02/23/24 08:15 Cephalexin 500 Mg Capsule PO 02/28/24 23:59 500 mg Q12HR SELMA Administration Dextrose 12.5 gm 02/17/24 23:23 Dextrose 50% 25 Gm/50 Ml Syringe IV PUSH PRN PRN Hypoglycemia Protocol Doxycycline Hyclate 100 mg 02/21/24 21:00 02/23/24 08:15 Doxycycline Hyclate 100 Mg Tablet PO 02/28/24 23:59 100 mg Q12HR SELMA Administration Epoetin Marc-epbx 10,000 units 02/21/24 09:00 02/23/24 08:27 Epoetin Marc-Epbx 10,000 Units/Ml Vial SUB-Q 10,000 units MOWEFR@09 SELMA Administration Glucagon 1 mg 02/17/24 23:23 Glucagon For Inj 1 Mg Vial IM PRN PRN Hypoglycemia Protocol Glucose 15 gm 02/17/24 23:23 Glucose Oral Gel 15 Gm Of Glucse In 37.5 Gm Tube PO PRN PRN Hypoglycemia Protocol Hydroxyzine Pamoate 50 mg 02/17/24 23:56 02/23/24 06:39 Hydroxyzine Pamoate 25 Mg Capsule PO 50 mg TID PRN Administration Anxiety Dextrose 1,000 mls @ 100 mls/hr 02/17/24 23:23 Dextrose 5% 1,000 Ml IVPB PRN PRN Hypoglycemia Protocol Insulin Aspart 3 - 6 units 02/18/24 08:00 02/23/24 12:16 Insulin Aspart (*Bkc) 100 Units/Ml SUB-Q Not Given TIDWM SELMA Protocol Insulin Aspart 1 - 3 units 02/18/24 21:00 02/22/24 21:24 Insulin Aspart (*Bkc) 100 Units/Ml SUB-Q 1 units HS SELMA Administration Protocol Insulin Glargine 8 units 02/18/24 21:00 02/22/24 21:24 Insulin Glargine (Lantus) 1,000 Units/10 Ml Vial SUB-Q 8 units HS SELMA Administration Levothyroxine Sodium 25 mcg 02/18/24 06:30 02/23/24 05:38 Levothyroxine Sodium 25 Mcg Tablet PO 25 mcg DAILY@0630 SELMA Administration Levothyroxine Sodium 112 mcg 02/18/24 06:30 02/23/24 05:38 Levothyroxine Sodium 112 Mcg Tablet PO 112 mcg DAILY@0630 SELMA Administration Trazodone HCl 50 mg 02/18/24 21:00 02/22/24 20:57 Trazodone Hcl 50 Mg Tablet PO 50 mg HS SELMA Administration Radiology Results: ITS Impressions Chest X-Ray 02/17/24 15:01 IMPRESSION: 1. Mild atelectasis in the lower lung zones. 2. Retraction of the central line, now with tip in the right brachiocephalic vein. Labs Labs: Laboratory Results - last 24 hr 02/22/24 02/22/24 02/23/24 16:56 21:15 06:09 WBC 5.4 RBC 3.18 L Hgb 9.2 L Hct 29.9 L MCV 94.0 MCH 28.9 MCHC 30.8 L RDW 18.1 H Plt Count 211 MPV 10.2 Immature Gran % (Auto) 0.4 Neut % (Auto) 61.8 Lymph % (Auto) 26.3 Weber % (Auto) 7.6 Eos % (Auto) 3.0 Baso % (Auto) 0.9 Lymph # (Auto) 1.42 Weber # (Auto) 0.4 Eos # (Auto) 0.2 Baso # (Auto) 0.1 Abs Immat Gran (auto) 0.02 Absolute Neuts (auto) 3.3 Absolute Nucleated RBC 0.000 Nucleated RBC % 0.0 Sodium 138 Potassium 4.4 Chloride 110 H Carbon Dioxide 22 Anion Gap 6 BUN 50 H Creatinine 2.40 H Estim Creat Clear Calc 28 Estimated GFR 20 L Glucose 128 H POC Capillary Glucose 179 H 230 H Calcium 8.2 L Phosphorus 4.5 Magnesium 1.9 Total Bilirubin 0.6 AST 15 ALT 9 Alkaline Phosphatase 148 H Total Protein 6.0 L Albumin 3.0 L 02/23/24 02/23/24 08:02 11:48 WBC RBC Hgb Hct MCV MCH MCHC RDW Plt Count MPV Immature Gran % (Auto) Neut % (Auto) Lymph % (Auto) Weber % (Auto) Eos % (Auto) Baso % (Auto) Lymph # (Auto) Weber # (Auto) Eos # (Auto) Baso # (Auto) Abs Immat Gran (auto) Absolute Neuts (auto) Absolute Nucleated RBC Nucleated RBC % Sodium Potassium Chloride Carbon Dioxide Anion Gap BUN Creatinine Estim Creat Clear Calc Estimated GFR Glucose POC Capillary Glucose 117 H 132 H Calcium Phosphorus Magnesium Total Bilirubin AST ALT Alkaline Phosphatase Total Protein Albumin Quality VTE Prophylaxis VTE prophylaxis: pharmacologic ordered
[2024-02-23 16:50] LABS: Glucose Point of Care 139 mg/dl (65-105)
[2024-02-23] MEDS: BUMETANIDE 1 MG TABLET PO (17:56)
[2024-02-23] MEDS: APIXABAN 2.5 MG TABLET PO (20:44)
[2024-02-23] MEDS: traZODone HCL 50 MG TABLET PO (20:44)
[2024-02-23] MEDS: INSULIN GLARGINE (LANTUS) 1,000 UNITS/10 ML VIAL 8 UNITS SUB-Q (20:47)
[2024-02-23 21:30] LABS: Glucose Point of Care 168 mg/dl (65-105)
[2024-02-24] VITALS (8 sets, daily range): BP systolic 123–171; BP diastolic 59–84; PULSE 73–776; RESP 16; TEMP 36.3–36.4; O2SAT 93–98
[2024-02-24] MEDS: LEVOTHYROXINE SODIUM 25 MCG TABLET PO (05:56)
[2024-02-24] MEDS: LEVOTHYROXINE SODIUM 112 MCG TABLET PO (05:56)
[2024-02-24 06:37] LABS: Basophils Absolute Auto 0.1 K/mm3 (0.0-0.1); Eosinophils Absolute Auto 0.1 K/mm3 (0-0.3); Eosinophils Percent Auto 2.7 % (0-4.4); Hematocrit 30.1 % (37.0-47.0); Hemoglobin 9.4 g/dL (12.0-15.0); Immature Granulocyte Absolute 0.01 K/mm3 (0.00-0.031); Immature Granulocyte Percent A 0.2 % (0-0.5); Lymphocytes Absolute Auto 1.25 K/mm3 (0.9-3.2); Lymphocytes Percent Auto 24.3 % (18.3-44.2); Mean Corpuscular HGB Conc 31.2 g/dl (32-36); Mean Corpuscular Hemoglobin 29.5 pg (26-34); Mean Corpuscular Volume 94.4 fl (80-100); Mean Platelet Volume 10.5 fl (7.4-10.4); Monocytes Absolute Auto 0.4 K/mm3 (0.1-0.6); Monocytes Percent Auto 7.2 % (2.6-8.5); Neutrophils Absolute Auto 3.3 K/mm3 (1.3-6.7); Neutrophils Percent Auto 64.6 % (45.5-73.1); Platelet Count Result 207 k/mm3 (150-375); Red Blood Count 3.19 M/mm3 (4.2-5.4); Red Cell Distribution Width 18.2 % (11.5-14.5); White Blood Count 5.1 K/mm3 (4.5-10.0)
[2024-02-24 06:48] LABS: Alanine Aminotransferase 9 U/L (6-35); Albumin Level 2.9 g/dL (3.5-5.1); Alkaline Phosphatase 153 U/L (38-126); Anion Gap 6 mmol/L (4-12); Aspartate Amino Transferase 15 U/L (14-36); Bilirubin,Total 0.5 mg/dL (0.2-1.3); Blood Urea Nitrogen 47 mg/dL (7-17); Calcium 8.3 mg/dL (8.4-10.2); Carbon Dioxide 22 mmol/L (22-30); Chloride 109 mmol/L (98-107); Estimated CRCL calculation 29 ml/min; Estimated Glomerular Filt Rate 21; Glucose 140 mg/dL (65-110); Magnesium 1.9 mg/dL (1.6-2.3); Potassium 4.2 mmol/L (3.4-5.0); Sodium 137 mmol/L (137-145)
--- NOTE | 2024-02-24 08:31 | P.PNNP_ITS ---
Progress Note: A&P Assessment and Plan (1) Chronic kidney disease, stage IV (severe): Code(s): N18.4 - Chronic kidney disease, stage 4 (severe) Status: Chronic Assessment and Plan: * new baseline creatinine seems ro run around 1.7 - 2.3mg/dl * due to due to biopsy proven diabetic nephropathy/nephrosclerosis (biopsies done in November 2021 and November 2023) in conjunction with vascular disease and leftovers from previous SHREYA/ARF * RENAL BIOPSY (done on 11/24/23): class III advanced nodular diabetic glomerulosclerosis with ~ 60% interstitial fibrosis and tubular atrophy * creatinine had worsened to 4.9mg/dl during November 2023 hospitalization complicated by anasarca/volume overload, diminished urine output despite high dose diuretic therapy, metabolic acidosis, and hyperkalemia which led to initiation of renal replacement therapy/dialysis * [employer]/dialysis stopped about a week ago prior to admission due to evidence of renal recovery * responsive to IV diuretic therapy * off IV bumex * transitioned to oral bumex * continue to follow trend of repeat labs and UOP (2) Anasarca: Code(s): R60.1 - Generalized edema Status: Acute Assessment and Plan: * improvement noted * as noted by physical exam and symptoms * localized to LEs and abdominal area with a respiratory component as well * good diuresis noted with IV bumex * transition to oral bumex * almost 8 liters negative since admission(!) * follow daily weights, I/Os, and respiratory status (3) Displacement of central venous catheter (CVC): Code(s): T82.528A - Displacement of other cardiac and vascular devices and implants, initial encounter Status: Acute Assessment and Plan: * as noted by admission CXR regarding tunneled HD catheter * since responding to medical therapy, dialysis catheter no longer needed * s/p PermCath removal on 02/20 by Surgery (4) Combined systolic and diastolic congestive heart failure: Code(s): I50.40 - Unspecified combined systolic (congestive) and diastolic (congestive) heart failure Status: Acute Assessment and Plan: * suspect playing a role with volume status along with kidney disease * last Echo on 11/2023 noted: * EF 40-45% * severe TR * moderate MR * pulmonary hypertension * continue diuresis as tolerated * continue to follow weight and I/Os (5) Chronic anemia: Code(s): D64.9 - Anemia, unspecified Status: Chronic Assessment and Plan: * suspect related to CKD * s/p EGD and colonoscopy on last hospitalization - no active bleeding lesions * dose with Retacrit while hospitalized * follow trend of H/H (6) Cellulitis of left leg: Code(s): L03.116 - Cellulitis of left lower limb Status: Acute Assessment and Plan: * as noted by erythema and swelling in LLE with ulcerations * however, WBC normal * on antibiotics * Wound care consulted/following (7) Paroxysmal atrial fibrillation: Code(s): I48.0 - Paroxysmal atrial fibrillation Status: Chronic Assessment and Plan: * rate control strategy * probably okay to resume eliquis (8) Hypertension: Code(s): I10 - Essential (primary) hypertension Status: Chronic Assessment and Plan: * reasonable control at this time * follow trend of hemodynamics (9) Type 2 diabetes mellitus, uncontrolled, with renal complications: Status: Chronic Assessment and Plan: * follow accu-cheks * glycemic control per hospitalists Not opposed to discharge from renal perspective if otherwise medically stable -- she can call my office to schedule follow-up for management of her chronic kidney disease. Will continue to follow Subjective Date/time seen: 02/24/24 08:31 Interval history: Follow-up for chronic kidney disease. Continues to do reasonably well at the time of my visit; no acute distress voiced; no issues/events overnight or earlier this morning; renal function/creatinine relatively stable with current diuretic therapy; still has some swelling more so in the upper thigh area; otherwise, feels pretty good. Exam 2 Narrative: General: WD/WN female in NAD Heart: normal S1 and S2; no rub Lungs: clear anteriorly; decreased at bases Abdomen: soft, nontender, nondistended, positive bowel sounds Extremities: no cyanosis or clubbing; trace - 1+ bilateral edema; s/p right BKA Skin: noted scattered abrasions over LEs Objective Data Vital Signs Vital Signs: Vital Signs Temp Pulse Resp BP Pulse Ox O2 Del Method 02/24/24 08:00 776 H 02/24/24 08:00 Room Air 02/24/24 05:29 97.3 F L 77 16 123/59 L 93 02/24/24 04:00 74 02/24/24 00:00 78 02/23/24 20:45 98.1 F 78 16 144/79 H 97 02/23/24 20:00 78 02/23/24 20:00 Room Air 02/23/24 16:00 77 02/23/24 13:47 97.6 F 76 18 150/75 H 97 02/23/24 12:00 75 Intake/Output Intake/Output: Intake & Output 02/21/24 02/22/24 02/23/24 02/24/24 23:59 23:59 23:59 23:59 Intake Total 027 052 5468 300 Output Total 2450 1100 1250 700 Balance -1720 -180 -180 -400 Meds/Results Medications: Active Medications Generic Name Dose Route Start Last Admin Trade Name Freq PRN Reason Stop Dose Admin Hydrocodone Bitart/Acetaminophen 1 tab 02/21/24 13:27 02/21/24 13:51 Hydrocodone/Acetaminophen (*Crx) 5-325 Mg Tablet PO 1 tab Q4H PRN Administration Pain Rated 4-6 Apixaban 2.5 mg 02/23/24 21:00 02/24/24 08:34 Apixaban 2.5 Mg Tablet PO 2.5 mg Q12HR SELMA Administration Atorvastatin Calcium 40 mg 02/18/24 09:00 02/24/24 08:34 Atorvastatin 40 Mg Tablet PO 40 mg DAILY SELMA Administration Bumetanide 1 mg 02/23/24 17:00 02/24/24 08:34 Bumetanide 1 Mg Tablet PO 1 mg BID SELMA Administration Cephalexin HCl 500 mg 02/23/24 09:00 02/24/24 08:34 Cephalexin 500 Mg Capsule PO 02/28/24 23:59 500 mg Q12HR SELMA Administration Dextrose 12.5 gm 02/17/24 23:23 Dextrose 50% 25 Gm/50 Ml Syringe IV PUSH PRN PRN Hypoglycemia Protocol Doxycycline Hyclate 100 mg 02/21/24 21:00 02/24/24 08:34 Doxycycline Hyclate 100 Mg Tablet PO 02/28/24 23:59 100 mg Q12HR SELMA Administration Epoetin Marc-epbx 10,000 units 02/21/24 09:00 02/23/24 08:27 Epoetin Marc-Epbx 10,000 Units/Ml Vial SUB-Q 10,000 units MOWEFR@09 SELMA Administration Famotidine 10 mg 02/25/24 09:00 Famotidine 10 Mg Tablet PO Q48H SELMA Glucagon 1 mg 02/17/24 23:23 Glucagon For Inj 1 Mg Vial IM PRN PRN Hypoglycemia Protocol Glucose 15 gm 02/17/24 23:23 Glucose Oral Gel 15 Gm Of Glucse In 37.5 Gm Tube PO PRN PRN Hypoglycemia Protocol Hydroxyzine Pamoate 50 mg 02/17/24 23:56 02/23/24 20:45 Hydroxyzine Pamoate 25 Mg Capsule PO 50 mg TID PRN Administration Anxiety Dextrose 1,000 mls @ 100 mls/hr 02/17/24 23:23 Dextrose 5% 1,000 Ml IVPB PRN PRN Hypoglycemia Protocol Insulin Aspart 3 - 6 units 02/18/24 08:00 02/24/24 08:53 Insulin Aspart (*Bkc) 100 Units/Ml SUB-Q Not Given TIDWM [facility] Protocol Insulin Aspart 1 - 3 units 02/18/24 21:00 02/23/24 22:00 Insulin Aspart (*Bkc) 100 Units/Ml SUB-Q Not Given HS [facility] Protocol Insulin Glargine 8 units 02/18/24 21:00 02/23/24 20:47 Insulin Glargine (Lantus) 1,000 Units/10 Ml Vial SUB-Q 8 units HS [facility] Administration Levothyroxine Sodium 25 mcg 02/18/24 06:30 02/24/24 05:56 Levothyroxine Sodium 25 Mcg Tablet PO 25 mcg DAILY@0630 [facility] Administration Levothyroxine Sodium 112 mcg 02/18/24 06:30 02/24/24 05:56 Levothyroxine Sodium 112 Mcg Tablet PO 112 mcg DAILY@0630 [facility] Administration Trazodone HCl 50 mg 02/18/24 21:00 02/23/24 20:44 Trazodone Hcl 50 Mg Tablet PO 50 mg HS [facility] Administration Radiology Results: ITS Impressions Chest X-Ray 02/17/24 15:01 IMPRESSION: 1. Mild atelectasis in the lower lung zones. 2. Retraction of the central line, now with tip in the right brachiocephalic vein. Labs Labs: Laboratory Tests 02/24/24 06:08 02/24/24 06:08 Calcium 8.3 L Magnesium 1.9 Total Bilirubin 0.5 AST 15 ALT 9 Alkaline Phosphatase 153 H Total Protein 6.0 L Albumin 2.9 L Microbiology 02/21/24 15:01 Leg Left Anaerobic Culture - Preliminary 02/21/24 15:01 Leg Left Aerobic Culture - Preliminary
[2024-02-24 08:33] LABS: Glucose Point of Care 126 mg/dl (65-105)
[2024-02-24] MEDS: CEPHALEXIN 500 MG CAPSULE PO ×2 (08:34→20:32)
[2024-02-24] MEDS: ATORVASTATIN 40 MG TABLET PO (08:34)
[2024-02-24] MEDS: BUMETANIDE 1 MG TABLET PO ×2 (08:34→17:36)
[2024-02-24] MEDS: DOXYCYCLINE HYCLATE 100 MG TABLET PO ×2 (08:34→20:32)
[2024-02-24] MEDS: APIXABAN 2.5 MG TABLET PO ×2 (08:34→20:32)
--- NOTE | 2024-02-24 10:45 | PCNFU ---
Nutrition Follow-Up Complete: Increased protein energy needs related to wound healing as evidenced by pressure injury Goal: Diet advancement Adequate PO intake Patient is meeting goal. No new goal. Pt current nutrition is Renal/DBCC diet with Marshall BID. Last recorded weight is 110.5 kg, down from 111.8 kg on admit. Bowel Motility: +BM reported 02/19 Labs Reviewed:Gl u140, Cr 23,BUN 47, Alb 2.9 Meds Noted:NovoLog, Lantus, Eliquis Skin: Stage 2-buttock Additional Notes: Patient remains on a Renal Dialysis/DBCC diet. Oral Intake has been > 75% of meals. Diet supplement of Marshall BID for wound healing. Monitoring diet orders, weights, labs, intakes, wounds, plan of care Follow up in 3 days
[2024-02-24 11:49] LABS: Glucose Point of Care 124 mg/dl (65-105)
--- NOTE | 2024-02-24 12:39 | P.PNIM_ITS ---
Progress Note: A&P Assessment and Plan (1) Anasarca: Code(s): R60.1 - Generalized edema Status: Acute Assessment and Plan: * Continue p.o. Bumex * Nephrology following * Plan for discharge home tomorrow now that she is optimized (2) Chronic kidney disease on chronic dialysis: Code(s): N18.6 - End stage renal disease; Z99.2 - Dependence on renal dialysis Status: Acute Assessment and Plan: * Continue Bumex oral * Nephrology following * Avoid nephrotoxic medication or IV contrast * Wound culture pending, still no growth * Creatinine 2.30 (3) Combined systolic and diastolic congestive heart failure: Code(s): I50.40 - Unspecified combined systolic (congestive) and diastolic (congestive) heart failure Status: Acute Assessment and Plan: * Initial BNP [id number] * Continue Bumex oral * Last echo showed EF 40-45%, tricuspid regurgitation, moderate mitral regurgitation and pulmonary hypertension * Chest x-ray showing mild atelectasis * Strict I&O * Continue daily weights (4) Neurogenic bladder: Code(s): N31.9 - Neuromuscular dysfunction of bladder, unspecified Status: Chronic Assessment and Plan: * Continue straight cath as this is her regular home care (5) Complication associated with peripherally inserted central catheter: Code(s): T82.9XXA - Unspecified complication of cardiac and vascular prosthetic device, implant and graft, initial encounter Status: Acute Assessment and Plan: * PermCath removed with General surgery this admission (6) Paroxysmal atrial fibrillation: Code(s): I48.0 - Paroxysmal atrial fibrillation Status: Chronic Assessment and Plan: * Well controlled * Continue Eliquis (7) Hypothyroidism: Code(s): E03.9 - Hypothyroidism, unspecified Status: Acute Assessment and Plan: * Continue Synthroid (8) Diabetes: Code(s): E11.9 - Type 2 diabetes mellitus without complications Status: Chronic Assessment and Plan: * Blood sugars ranging 124-171 * Hgb A1C 6.7 * Accu checks AC/HS * Moderate dose SSI ordered * Lantus 8 units at bedtime ordered * hypoglycemic protocol in place * Diabetic diet ordered (9) Cellulitis of left leg: Code(s): L03.116 - Cellulitis of left lower limb Status: Acute Assessment and Plan: * awaiting wound cultures * currently on Keflex and Doxycycline Plan Plan for discharge tomorrow Time Spent With Patient Time with patient: 15 - 25 minutes Subjective Date/time seen: 02/24/24 12:39 Interval history: Patient denies any new complaints today. Labs reviewed. Review of Systems Review of Systems: All systems reviewed & are unremarkable except as noted in HPI and below Constitutional: Constitutional: Reports as per HPI and Reports no additional constitutional complaints Eyes: Eyes: Reports as per HPI and Reports no additional eye complaints ENT: Reports system reviewed and no additional complaints, except as documented and Reports as per HPI Cardiovascular: Cardiovascular: Reports as per HPI and Reports no additional cardiovascular complaints Respiratory: Respiratory: Reports as per HPI and Reports no additional respiratory complaints Gastrointestinal: Gastrointestinal: Reports as per HPI and Reports no additional gastrointestinal complaints Genitourinary: Genitourinary: Reports no additional female genitourinary complaints and Reports as per HPI Musculoskeletal: Musculoskeletal: Reports no additional musculoskeletal complaints and Reports as per HPI Integumentary/Breasts: Skin/Breast: Reports system reviewed and no additional complaints, except as docu and Reports as per HPI Neurologic: Reports system reviewed and no additional complaints, except as documented and Reports as per HPI Psychiatric: Psychiatric: Reports no additional psychiatric complaints and Reports as per HPI Exam Narrative: General: In no acute distress, well nourished Cardiac: Normal S1 and S2. No murmur, gallops or friction rubs, peripheral pulses intact. Respiratory: Lungs clear to auscultation, no adventitious lung sounds, currently on room air Gastrointestinal: soft, non-distended, non-tender, normoactive bowel sounds. : voiding without difficulty. Anasarca noted Extremities:RLE above knee amputation, Anasarca Neuro: Alert and oriented x4 Objective Data Vital Signs Vital Signs: Vital Signs - 24 hr 02/23/24 13:47 02/23/24 16:00 02/23/24 20:00 Temperature 97.6 F Pulse Rate 76 77 Respiratory Rate 18 Blood Pressure 150/75 H Pulse Oximetry 97 Oxygen Delivery Room Air 02/23/24 20:00 02/23/24 20:45 02/24/24 00:00 Temperature 98.1 F Pulse Rate 78 78 78 Respiratory Rate 16 Blood Pressure 144/79 H Pulse Oximetry 97 Oxygen Delivery 02/24/24 04:00 02/24/24 05:29 02/24/24 08:00 Temperature 97.3 F L Pulse Rate 74 77 Respiratory Rate 16 Blood Pressure 123/59 L Pulse Oximetry 93 Oxygen Delivery Room Air 02/24/24 08:00 Temperature Pulse Rate 776 H Respiratory Rate Blood Pressure Pulse Oximetry Oxygen Delivery Intake/Output Intake/Output: Intake & Output 02/21/24 02/22/24 02/23/24 02/24/24 23:59 23:59 23:59 23:59 Intake Total 170 086 9892 540 Output Total 2450 1100 1250 700 Balance -1720 -180 -180 -160 Meds/Results Medications: Active Medications Generic Name Dose Route Start Last Admin Trade Name Freq PRN Reason Stop Dose Admin Hydrocodone Bitart/Acetaminophen 1 tab 02/21/24 13:27 02/21/24 13:51 Hydrocodone/Acetaminophen (*Crx) 5-325 Mg Tablet PO 1 tab Q4H PRN Administration Pain Rated 4-6 Apixaban 2.5 mg 02/23/24 21:00 02/24/24 08:34 Apixaban 2.5 Mg Tablet PO 2.5 mg Q12HR SELMA Administration Atorvastatin Calcium 40 mg 02/18/24 09:00 02/24/24 08:34 Atorvastatin 40 Mg Tablet PO 40 mg DAILY SELMA Administration Bumetanide 1 mg 02/23/24 17:00 02/24/24 08:34 Bumetanide 1 Mg Tablet PO 1 mg BID SELMA Administration Cephalexin HCl 500 mg 02/23/24 09:00 02/24/24 08:34 Cephalexin 500 Mg Capsule PO 02/28/24 23:59 500 mg Q12HR SELMA Administration Dextrose 12.5 gm 02/17/24 23:23 Dextrose 50% 25 Gm/50 Ml Syringe IV PUSH PRN PRN Hypoglycemia Protocol Doxycycline Hyclate 100 mg 02/21/24 21:00 02/24/24 08:34 Doxycycline Hyclate 100 Mg Tablet PO 02/28/24 23:59 100 mg Q12HR SELMA Administration Epoetin Marc-epbx 10,000 units 02/21/24 09:00 02/23/24 08:27 Epoetin Marc-Epbx 10,000 Units/Ml Vial SUB-Q 10,000 units MOWEFR@09 SELMA Administration Famotidine 10 mg 02/25/24 09:00 Famotidine 10 Mg Tablet PO Q48H SELMA Glucagon 1 mg 02/17/24 23:23 Glucagon For Inj 1 Mg Vial IM PRN PRN Hypoglycemia Protocol Glucose 15 gm 02/17/24 23:23 Glucose Oral Gel 15 Gm Of Glucse In 37.5 Gm Tube PO PRN PRN Hypoglycemia Protocol Hydroxyzine Pamoate 50 mg 02/17/24 23:56 02/23/24 20:45 Hydroxyzine Pamoate 25 Mg Capsule PO 50 mg TID PRN Administration Anxiety Dextrose 1,000 mls @ 100 mls/hr 02/17/24 23:23 Dextrose 5% 1,000 Ml IVPB PRN PRN Hypoglycemia Protocol Insulin Aspart 3 - 6 units 02/18/24 08:00 02/24/24 12:31 Insulin Aspart (*Bkc) 100 Units/Ml SUB-Q Not Given TIDWM SELMA Protocol Insulin Aspart 1 - 3 units 02/18/24 21:00 02/23/24 22:00 Insulin Aspart (*Bkc) 100 Units/Ml SUB-Q Not Given HS [facility] Protocol Insulin Glargine 8 units 02/18/24 21:00 02/23/24 20:47 Insulin Glargine (Lantus) 1,000 Units/10 Ml Vial SUB-Q 8 units HS SELMA Administration Levothyroxine Sodium 25 mcg 02/18/24 06:30 02/24/24 05:56 Levothyroxine Sodium 25 Mcg Tablet PO 25 mcg DAILY@0630 SELMA Administration Levothyroxine Sodium 112 mcg 02/18/24 06:30 02/24/24 05:56 Levothyroxine Sodium 112 Mcg Tablet PO 112 mcg DAILY@0630 SELMA Administration Trazodone HCl 50 mg 02/18/24 21:00 02/23/24 20:44 Trazodone Hcl 50 Mg Tablet PO 50 mg HS SELMA Administration Radiology Results: ITS Impressions Chest X-Ray 02/17/24 15:01 IMPRESSION: 1. Mild atelectasis in the lower lung zones. 2. Retraction of the central line, now with tip in the right brachiocephalic vein. Labs Labs: Laboratory Results - last 24 hr 02/23/24 02/23/24 02/24/24 16:41 20:47 06:08 WBC 5.1 RBC 3.19 L Hgb 9.4 L Hct 30.1 L MCV 94.4 MCH 29.5 MCHC 31.2 L RDW 18.2 H Plt Count 207 MPV 10.5 H Immature Gran % (Auto) 0.2 Neut % (Auto) 64.6 Lymph % (Auto) 24.3 [place] % (Auto) 7.2 Eos % (Auto) 2.7 Baso % (Auto) 1.0 Lymph # (Auto) 1.25 [place] # (Auto) 0.4 Eos # (Auto) 0.1 Baso # (Auto) 0.1 Abs Immat Gran (auto) 0.01 Absolute Neuts (auto) 3.3 Absolute Nucleated RBC 0.000 Nucleated RBC % 0.0 Sodium 137 Potassium 4.2 Chloride 109 H Carbon Dioxide 22 Anion Gap 6 BUN 47 H Creatinine 2.30 H Estim Creat Clear Calc 29 Estimated GFR 21 L Glucose 140 H POC Capillary Glucose 139 H 168 H Calcium 8.3 L Magnesium 1.9 Total Bilirubin 0.5 AST 15 ALT 9 Alkaline Phosphatase 153 H Total Protein 6.0 L Albumin 2.9 L 02/24/24 02/24/24 08:31 11:47 WBC RBC Hgb Hct MCV MCH MCHC RDW Plt Count MPV Immature Gran % (Auto) Neut % (Auto) Lymph % (Auto) [place] % (Auto) Eos % (Auto) Baso % (Auto) Lymph # (Auto) [place] # (Auto) Eos # (Auto) Baso # (Auto) Abs Immat Gran (auto) Absolute Neuts (auto) Absolute Nucleated RBC Nucleated RBC % Sodium Potassium Chloride Carbon Dioxide Anion Gap BUN Creatinine Estim Creat Clear Calc Estimated GFR Glucose POC Capillary Glucose 126 H 124 H Calcium Magnesium Total Bilirubin AST ALT Alkaline Phosphatase Total Protein Albumin Quality VTE Prophylaxis VTE prophylaxis: pharmacologic ordered
[2024-02-24 16:28] LABS: Glucose Point of Care 171 mg/dl (65-105)
--- NOTE | 2024-02-24 18:39 | PC.NURSE ---
Per hospitalist, ok to take out IV and tele off.
[2024-02-24] MEDS: INSULIN ASPART (*BKC) 100 UNITS/ML SUB-Q (20:32)
[2024-02-24] MEDS: traZODone HCL 50 MG TABLET PO (20:32)
[2024-02-24] MEDS: hydrOXYzine pamoate 25 MG CAPSULE 50 MG PO (20:32)
[2024-02-24] MEDS: INSULIN GLARGINE (LANTUS) 1,000 UNITS/10 ML VIAL 8 UNITS SUB-Q (20:32)
[2024-02-24 21:46] LABS: Glucose Point of Care 270 mg/dl (65-105)
[2024-02-25 05:53] LABS: Basophils Absolute Auto 0.1 K/mm3 (0.0-0.1); Eosinophils Absolute Auto 0.2 K/mm3 (0-0.3); Eosinophils Percent Auto 3.1 % (0-4.4); Hematocrit 31.1 % (37.0-47.0); Hemoglobin 9.7 g/dL (12.0-15.0); Immature Granulocyte Absolute 0.02 K/mm3 (0.00-0.031); Immature Granulocyte Percent A 0.4 % (0-0.5); Lymphocytes Percent Auto 24.9 % (18.3-44.2); Mean Corpuscular HGB Conc 31.2 g/dl (32-36); Mean Corpuscular Hemoglobin 29.5 pg (26-34); Mean Corpuscular Volume 94.5 fl (80-100); Mean Platelet Volume 10.2 fl (7.4-10.4); Monocytes Absolute Auto 0.4 K/mm3 (0.1-0.6); Monocytes Percent Auto 7.8 % (2.6-8.5); Neutrophils Absolute Auto 3.3 K/mm3 (1.3-6.7); Neutrophils Percent Auto 62.8 % (45.5-73.1); Platelet Count Result 213 k/mm3 (150-375); Red Blood Count 3.29 M/mm3 (4.2-5.4); Red Cell Distribution Width 17.9 % (11.5-14.5); White Blood Count 5.2 K/mm3 (4.5-10.0)
[2024-02-25 06:03] LABS: Alanine Aminotransferase 9 U/L (6-35); Alkaline Phosphatase 166 U/L (38-126); Anion Gap 3 mmol/L (4-12); Aspartate Amino Transferase 17 U/L (14-36); Bilirubin,Total 0.7 mg/dL (0.2-1.3); Blood Urea Nitrogen 46 mg/dL (7-17); Calcium 8.3 mg/dL (8.4-10.2); Carbon Dioxide 24 mmol/L (22-30); Chloride 110 mmol/L (98-107); Estimated CRCL calculation 31 ml/min; Estimated Glomerular Filt Rate 22; Glucose 129 mg/dL (65-110); Magnesium 1.8 mg/dL (1.6-2.3); Potassium 4.4 mmol/L (3.4-5.0); Sodium 137 mmol/L (137-145)
[2024-02-25 06:20] VITALS: BP 112/51; PULSE 72; RESP 16; TEMP 36.1; O2SAT 97
[2024-02-25] MEDS: LEVOTHYROXINE SODIUM 25 MCG TABLET PO (06:26)
[2024-02-25] MEDS: LEVOTHYROXINE SODIUM 112 MCG TABLET PO (06:26)
[2024-02-25 08:57] LABS: Glucose Point of Care 101 mg/dl (65-105)
--- NOTE | 2024-02-25 09:15 | P.PNNP_ITS ---
Progress Note: A&P Assessment and Plan (1) Chronic kidney disease, stage IV (severe): Code(s): N18.4 - Chronic kidney disease, stage 4 (severe) Status: Chronic Assessment and Plan: * new baseline creatinine seems ro run around 1.7 - 2.3mg/dl * due to due to biopsy proven diabetic nephropathy/nephrosclerosis (biopsies done in November 2021 and November 2023) in conjunction with vascular disease and leftovers from previous SHREYA/ARF * RENAL BIOPSY (done on 11/24/23): class III advanced nodular diabetic glomerulosclerosis with ~ 60% interstitial fibrosis and tubular atrophy * creatinine had worsened to 4.9mg/dl during November 2023 hospitalization complicated by anasarca/volume overload, diminished urine output despite high dose diuretic therapy, metabolic acidosis, and hyperkalemia which led to initiation of renal replacement therapy/dialysis * 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 about a week ago prior to admission due to evidence of renal recovery * responsive to IV diuretic therapy * off IV bumex * transitioned to oral bumex * continue to follow trend of repeat labs and UOP (2) Anasarca: Code(s): R60.1 - Generalized edema Status: Acute Assessment and Plan: * improvement noted * as noted by physical exam and symptoms * localized to LEs and abdominal area with a respiratory component as well * good diuresis noted with IV bumex * transition to oral bumex * almost 9 liters negative since admission(!) * follow daily weights, I/Os, and respiratory status (3) Displacement of central venous catheter (CVC): Code(s): T82.528A - Displacement of other cardiac and vascular devices and implants, initial encounter Status: Acute Assessment and Plan: * as noted by admission CXR regarding tunneled HD catheter * since responding to medical therapy, dialysis catheter no longer needed * s/p PermCath removal on 02/20 by Surgery (4) Combined systolic and diastolic congestive heart failure: Code(s): I50.40 - Unspecified combined systolic (congestive) and diastolic (congestive) heart failure Status: Acute Assessment and Plan: * suspect playing a role with volume status along with kidney disease * last Echo on 11/2023 noted: * EF 40-45% * severe TR * moderate MR * pulmonary hypertension * continue diuresis as tolerated * continue to follow weight and I/Os (5) Chronic anemia: Code(s): D64.9 - Anemia, unspecified Status: Chronic Assessment and Plan: * suspect related to CKD * s/p EGD and colonoscopy on last hospitalization - no active bleeding lesions * dose with Retacrit while hospitalized * follow trend of H/H (6) Cellulitis of left leg: Code(s): L03.116 - Cellulitis of left lower limb Status: Acute Assessment and Plan: * as noted by erythema and swelling in LLE with ulcerations * however, WBC normal * on antibiotics * Wound care consulted/following (7) Paroxysmal atrial fibrillation: Code(s): I48.0 - Paroxysmal atrial fibrillation Status: Chronic Assessment and Plan: * rate control strategy * probably okay to resume eliquis (8) Hypertension: Code(s): I10 - Essential (primary) hypertension Status: Chronic Assessment and Plan: * reasonable control at this time * follow trend of hemodynamics (9) Type 2 diabetes mellitus, uncontrolled, with renal complications: Status: Chronic Assessment and Plan: * follow accu-cheks * glycemic control per hospitalists Not opposed to discharge from renal perspective if otherwise medically stable -- she can call my office to schedule follow-up for management of her chronic kidney disease. Will continue to follow Subjective Date/time seen: 02/25/24 09:15 Interval history: Follow-up for chronic kidney disease. Seems to be doing quite well at the time of my visit; thinks the KRYSTA-wraps along with oral diuretic therapy together seems to have helped with her significant LE edema/swelling; no apparent distress voiced when seen; hoping for discharge today if possible. Exam 2 Narrative: General: WD/WN female in NAD Heart: normal S1 and S2; no rub Lungs: clear anteriorly; decreased at bases Abdomen: soft, nontender, nondistended, positive bowel sounds Extremities: no cyanosis or clubbing; trace - 1+ bilateral edema; s/p right BKA Skin: improving erythema noted Objective Data Vital Signs Vital Signs: Vital Signs Temp Pulse Resp BP Pulse Ox O2 Del Method 02/25/24 06:20 97 F L 72 16 112/51 L 97 02/24/24 20:00 Room Air 02/24/24 19:25 97.6 F 85 16 151/75 H 97 02/24/24 16:00 81 02/24/24 13:45 97.4 F L 86 16 171/84 H 98 02/24/24 12:00 73 Intake/Output Intake/Output: Intake & Output 02/22/24 02/23/24 02/24/24 02/25/24 23:59 23:59 23:59 23:59 Intake Total 920 1070 1750 640 Output Total 1100 1250 1985 1500 Balance -180 -180 -235 -860 Meds/Results Medications: Active Medications Generic Name Dose Route Start Last Admin Trade Name Freq PRN Reason Stop Dose Admin Hydrocodone Bitart/Acetaminophen 1 tab 02/21/24 13:27 02/21/24 13:51 Hydrocodone/Acetaminophen (*Crx) 5-325 Mg Tablet PO 1 tab Q4H PRN Administration Pain Rated 4-6 Apixaban 2.5 mg 02/23/24 21:00 02/25/24 09:22 Apixaban 2.5 Mg Tablet PO 2.5 mg Q12HR SELMA Administration Atorvastatin Calcium 40 mg 02/18/24 09:00 02/25/24 09:22 Atorvastatin 40 Mg Tablet PO 40 mg DAILY SELMA Administration Bumetanide 1 mg 02/23/24 17:00 02/25/24 09:22 Bumetanide 1 Mg Tablet PO 1 mg BID SELMA Administration Cephalexin HCl 500 mg 02/23/24 09:00 02/25/24 09:22 Cephalexin 500 Mg Capsule PO 02/28/24 23:59 500 mg Q12HR SELMA Administration Dextrose 12.5 gm 02/17/24 23:23 Dextrose 50% 25 Gm/50 Ml Syringe IV PUSH PRN PRN Hypoglycemia Protocol Doxycycline Hyclate 100 mg 02/21/24 21:00 02/25/24 09:22 Doxycycline Hyclate 100 Mg Tablet PO 02/28/24 23:59 100 mg Q12HR SELMA Administration Epoetin Marc-epbx 10,000 units 02/21/24 09:00 02/25/24 09:31 Epoetin Marc-Epbx 10,000 Units/Ml Vial SUB-Q 10,000 units MOWEFR@09 SELMA Administration Famotidine 10 mg 02/25/24 09:00 02/25/24 09:22 Famotidine 10 Mg Tablet PO 10 mg Q48H SELMA Administration Glucagon 1 mg 02/17/24 23:23 Glucagon For Inj 1 Mg Vial IM PRN PRN Hypoglycemia Protocol Glucose 15 gm 02/17/24 23:23 Glucose Oral Gel 15 Gm Of Glucse In 37.5 Gm Tube PO PRN PRN Hypoglycemia Protocol Hydroxyzine Pamoate 50 mg 02/17/24 23:56 02/25/24 09:22 Hydroxyzine Pamoate 25 Mg Capsule PO 50 mg TID PRN Administration Anxiety Dextrose 1,000 mls @ 100 mls/hr 02/17/24 23:23 Dextrose 5% 1,000 Ml IVPB PRN PRN Hypoglycemia Protocol Insulin Aspart 3 - 6 units 02/18/24 08:00 02/25/24 08:58 Insulin Aspart (*Bkc) 100 Units/Ml SUB-Q Not Given TIDWM SELMA Protocol Insulin Aspart 1 - 3 units 02/18/24 21:00 02/24/24 20:32 Insulin Aspart (*Bkc) 100 Units/Ml SUB-Q 2 units HS SELMA Administration Protocol Insulin Glargine 8 units 02/18/24 21:00 02/24/24 20:32 Insulin Glargine (Lantus) 1,000 Units/10 Ml Vial SUB-Q 8 units HS SELMA Administration Levothyroxine Sodium 25 mcg 02/18/24 06:30 02/25/24 06:26 Levothyroxine Sodium 25 Mcg Tablet PO 25 mcg DAILY@0630 SELMA Administration Levothyroxine Sodium 112 mcg 02/18/24 06:30 02/25/24 06:26 Levothyroxine Sodium 112 Mcg Tablet PO 112 mcg DAILY@0630 SELMA Administration Trazodone HCl 50 mg 02/18/24 21:00 02/24/24 20:32 Trazodone Hcl 50 Mg Tablet PO 50 mg HS SELMA Administration Radiology Results: ITS Impressions Chest X-Ray 02/17/24 15:01 IMPRESSION: 1. Mild atelectasis in the lower lung zones. 2. Retraction of the central line, now with tip in the right brachiocephalic vein. Labs Labs: Laboratory Tests 02/25/24 05:45 02/25/24 05:45 Calcium 8.3 L Magnesium 1.8 Total Bilirubin 0.7 AST 17 ALT 9 Alkaline Phosphatase 166 H Total Protein 6.0 L Albumin 3.0 L Microbiology 02/21/24 15:01 Leg Left Anaerobic Culture - Preliminary 02/21/24 15:01 Leg Left Aerobic Culture - Final
--- NOTE | 2024-02-25 09:18 | P.DS_ITS ---
DS: Admitting Diagnosis Discharge Date 02/25/24 Admitting Diagnosis Fluid overload Chronic kidney disease Combined systolic and diastolic congestive heart failure Right-sided heart failure Hypertension Hypothyroidism Insulin-dependent type 2 diabetes mellitus Neurogenic bladder DS: Discharge Diagnosis Discharge Diagnosis (1) Anasarca: Code(s): R60.1 - Generalized edema Status: Acute (2) Chronic kidney disease on chronic dialysis: Code(s): N18.6 - End stage renal disease; Z99.2 - Dependence on renal dialysis Status: Acute (3) Combined systolic and diastolic congestive heart failure: Code(s): I50.40 - Unspecified combined systolic (congestive) and diastolic (congestive) heart failure Status: Acute (4) Neurogenic bladder: Code(s): N31.9 - Neuromuscular dysfunction of bladder, unspecified Status: Chronic (5) Complication associated with peripherally inserted central catheter: Code(s): T82.9XXA - Unspecified complication of cardiac and vascular prosthetic device, implant and graft, initial encounter Status: Acute (6) Paroxysmal atrial fibrillation: Code(s): I48.0 - Paroxysmal atrial fibrillation Status: Chronic (7) Hypothyroidism: Code(s): E03.9 - Hypothyroidism, unspecified Status: Acute Assessment and Plan: * Continue Synthroid (8) Diabetes: Code(s): E11.9 - Type 2 diabetes mellitus without complications Status: Chronic (9) Cellulitis of left leg: Code(s): L03.116 - Cellulitis of left lower limb Status: Acute DS: Summary Hospital Course Reason for hospitalization: Fluid overload Chronic kidney disease Combined systolic and diastolic congestive heart failure Right-sided heart failure Hypertension Hypothyroidism Insulin-dependent type 2 diabetes mellitus Neurogenic bladder Hospital Course: This is a 68-year-old female who presented to the hospital on 02/17/2024 with complaints of shortness of breath. Workup in the hospital included a chest x- ray which showed mild atelectasis in the lower lung zones, retraction of the central line with tip in the right brachiocephalic vein. She was originally started on dialysis back in November for her renal function however now she is improving not requiring dialysis. She was at [facility] and was being fitted for prosthesis when she developed shortness of breath with increased swelling in both of her lower extremities. Initial labs shown a white blood cell count of 6.5, hemoglobin 10.3, BUN 51, creatinine 2.30, sodium 139, potassium 4.7, glucose 211, proBNP 77059, albumin 3.6. She was given IV Lasix initially and then switched over to IV Bumex per Nephrology recommendation which she received over the course of for 5 days before being transitioned over to oral Bumex. Dur ing this hospital stay she had removal of her right subclavian tunneled hemodialysis catheter. she also was seen by PT and OT who recommended SNF placement however patient declining due to [id number] pay and is requesting to go home with home health instead. Home health was arranged through case coordination. She denies any new complaints overnight. She is stable, vital signs are stable, she is afebrile, she is currently on room air. She is stable for discharge at this time. She will need to follow up with her primary care doctor in 1 week. Final diagnosis: Acute on chronic kidney disease, a mild systolic and diastolic congestive heart failure, cellulitis Status at Discharge Cognitive/behavioral status at discharge: Alert oriented x3 Functional status at discharge: wheelchair bound Overall status at discharge: patient is progressing back to baseline Time Spent with Patient Time attestation: Total time spent providing and/or coordinating discharge services: Time spent: Greater than 30 minutes Exam Narrative: General: In no acute distress, well nourished Cardiac: Normal S1 and S2. No murmur, gallops or friction rubs, peripheral pulses intact. Respiratory: Lungs clear to auscultation, no adventitious lung sounds, currently on room air Gastrointestinal: soft, non-distended, non-tender, normoactive bowel sounds. : voiding without difficulty. Anasarca noted Extremities:RLE above knee amputation, Anasarca Neuro: Alert and oriented x4 DS: Data Data Completed and Pending Completed studies during hospitalization: Chest x-ray Pending studies at discharge: Wound culture Labs on day of discharge: Labs from last 24 hours 02/25/24 02/24/24 02/24/24 05:45 19:33 16:26 WBC 5.2 RBC 3.29 L Hgb 9.7 L Hct 31.1 L MCV 94.5 MCH 29.5 MCHC 31.2 L RDW 17.9 H Plt Count 213 MPV 10.2 Immature Gran % (Auto) 0.4 Neut % (Auto) 62.8 Lymph % (Auto) 24.9 Spencer % (Auto) 7.8 Eos % (Auto) 3.1 Baso % (Auto) 1.0 Lymph # (Auto) 1.30 Spencer # (Auto) 0.4 Eos # (Auto) 0.2 Baso # (Auto) 0.1 Abs Immat Gran (auto) 0.02 Absolute Neuts (auto) 3.3 Absolute Nucleated RBC 0.000 Nucleated RBC % 0.0 Sodium 137 Potassium 4.4 Chloride 110 H Carbon Dioxide 24 Anion Gap 3 L BUN 46 H Creatinine 2.20 H Estim Creat Clear Calc 31 Estimated GFR 22 L Glucose 129 H POC Capillary Glucose 270 H 171 H Calcium 8.3 L Magnesium 1.8 Total Bilirubin 0.7 AST 17 ALT 9 Alkaline Phosphatase 166 H Total Protein 6.0 L Albumin 3.0 L 02/24/24 02/24/24 11:47 08:31 WBC RBC Hgb Hct MCV MCH MCHC RDW Plt Count MPV Immature Gran % (Auto) Neut % (Auto) Lymph % (Auto) Spencer % (Auto) Eos % (Auto) Baso % (Auto) Lymph # (Auto) Spencer # (Auto) Eos # (Auto) Baso # (Auto) Abs Immat Gran (auto) Absolute Neuts (auto) Absolute Nucleated RBC Nucleated RBC % Sodium Potassium Chloride Carbon Dioxide Anion Gap BUN Creatinine Estim Creat Clear Calc Estimated GFR Glucose POC Capillary Glucose 124 H 126 H Calcium Magnesium Total Bilirubin AST ALT Alkaline Phosphatase Total Protein Albumin Preliminary micro results at discharge 02/21/24 15:01 Anaerobic Culture - Preliminary Leg Left Procedures/Treatments: Removal of right subclavian tunneled hemodialysis catheter Discharge Plan Discharge Attending physician on discharge: Brent Ralph Consulting providers: Florence White; Radha Cuevas Discharging Clinician: Debra Vela Anticipated Discharge Date/Time: 02/25/24 08:16 Patient Disposition: Home Health Service Activity: as tolerated Diet: as tolerated, renal and low protein Discharge Instructions: Per Care Coordination, patient to discharged with [facility] ([phone]) for PT/OT and retirement services. Agency will call to arrange initial visit week of 02/28/24. *RN please fax discharge instructions to [phone]* Patient Instructions: Antibiotic Form, Cephalexin (By mouth), Doxycycline (By mouth), Apixaban (By mouth), Cellulitis (GEN), Chronic Kidney Disease Diet (DC) Patient Language: Khmer Stand Alone Forms: General Discharge Information Follow-up/Referrals: Sj,EFRAÍN Gannon [Primary Care Provider] - 1 Week Discharge Medications: New cephalexin 500 mg Capsule 500 mg PO Q12HR Qty: 6 0RF doxycycline hyclate 100 mg Tablet 100 mg PO Q12HR Qty: 6 0RF Continued (DME) InPen (for Humalog) Blue Insulin Pen See Rx Instructions .Route Rx Instructions: As directed 6 Units TID hydroxyzine pamoate 50 mg capsule 50 mg PO TID PRN (Reason: Anxiety) levothyroxine 125 mcg tablet 137 mcg PO DAILY trazodone 50 mg Tablet 50 mg PO HS insulin aspart U-100 [Novolog U-100 Insulin aspart] 100 unit/mL Solution 3 - 6 unit subcut TIDWM Qty: 30 0RF Protocol: Insulin Corrective Moderate-Dose Condition: glucose < 70 mg/dl Dose/Route: Follow hypoglycemia orders Condition: glucose 70-200 mg/dl Dose/Route: No additional insulin Condition: glucose 201-250 mg/dl Dose/Route: 3 units sub-Q Condition: glucose 251-300 mg/dl Dose/Route: 4 units sub-Q Condition: glucose 301-350 mg/dl Dose/Route: 5 units sub-Q Condition: glucose 351-400 mg/dl Dose/Route: 6 units sub-Q Condition: glucose > 400 mg/dl Dose/Route: Call MD Protocol Text: *No Correction Dose at Bedtime* famotidine 40 mg tablet 20 mg PO DAILY Qty: 90 0RF insulin degludec [Tresiba FlexTouch U-100] 100 unit/mL (3 mL) Insulin Pen 8 unit SUBCUT HS Qty: 3 0RF Eliquis 5 mg Tablet 2.5 mg PO BID Qty: 30 0RF atorvastatin 40 mg tablet 40 mg PO DAILY amlodipine 2.5 mg tablet 2.5 mg PO DAILY bumetanide 1 mg tablet 1 mg PO BID Date of admission: 02/19/24 14:02 Primary Care Provider: NealTeressa Admitting Provider: Aaron Fleming Attending physician on admission: Debra Vela Condition: Improved Quality VTE Prophylaxis VTE prophylaxis: pharmacologic ordered Hospitalist MIPS Heart Failure (Exclusion) Patient has history of Heart Transplant or Left Ventricular Assistive Device?: No IF YES, STOP HERE Heart Failure (Qualifier) Patient has current or prior documentation of LVEF less than or equal to 40%, or mod/servere depressed LVSF?: No IF NO, STOP HERE
[2024-02-25] MEDS: hydrOXYzine pamoate 25 MG CAPSULE 50 MG PO (09:22)
[2024-02-25] MEDS: FAMOTIDINE 10 MG TABLET PO (09:22)
[2024-02-25] MEDS: APIXABAN 2.5 MG TABLET PO (09:22)
[2024-02-25] MEDS: DOXYCYCLINE HYCLATE 100 MG TABLET PO (09:22)
[2024-02-25] MEDS: ATORVASTATIN 40 MG TABLET PO (09:22)
[2024-02-25] MEDS: CEPHALEXIN 500 MG CAPSULE PO (09:22)
[2024-02-25] MEDS: BUMETANIDE 1 MG TABLET PO (09:22)
[2024-02-25] MEDS: EPOETIN ALFA-EPBX 10,000 UNITS/ML VIAL 10000 UNITS SUB-Q (09:31)
[2024-02-25 12:35] LABS: Glucose Point of Care 102 mg/dl (65-105)
[2024-02-25 14:24] VITALS: BP 129/61; PULSE 83; RESP 16; TEMP 36.5; O2SAT 97
== END 2024-02-25 16:13 | disposition home health service (06) | DRG 291 ==
LOC: ANHED 15:03 → ANH3MEDSUR 18:46 → ANH3MED 19:49
PROVIDERS: Nurse Practitioner Family; Physician Assistant; Surgery; Admitting Provider General Practice; Emergency Provider Emergency Medicine; PCP Physician Assistant; Visit Provider Nurse Practitioner Acute Care
PROC: 0JPT0XZ Removal of Tunneled Vascular Access Device from Trunk Subcutaneous Tissue and Fascia, Open Approach (ICD-10-PCS; CPT 49422; principal; 2024-02-21 11:00)
DX: I13.2 Hypertensive heart and chronic kidney disease with heart failure and with stage 5 chronic kidney disease, or end stage renal disease (principal); I50.43 Acute on chronic combined systolic (congestive) and diastolic (congestive) heart failure; N18.6 End stage renal disease; J98.11 Atelectasis; L03.116 Cellulitis of left lower limb; T82.42XA Displacement of vascular dialysis catheter, initial encounter; L97.929 Non-pressure chronic ulcer of unspecified part of left lower leg with unspecified severity; N17.9 Acute kidney failure, unspecified; E11.22 Type 2 diabetes mellitus with diabetic chronic kidney disease; N31.9 Neuromuscular dysfunction of bladder, unspecified; E03.9 Hypothyroidism, unspecified; I48.0 Paroxysmal atrial fibrillation; I25.10 Atherosclerotic heart disease of native coronary artery without angina pectoris; E78.5 Hyperlipidemia, unspecified; D63.1 Anemia in chronic kidney disease; E11.42 Type 2 diabetes mellitus with diabetic polyneuropathy; I87.2 Venous insufficiency (chronic) (peripheral); Z79.01 Long term (current) use of anticoagulants; Z95.1 Presence of aortocoronary bypass graft; Z89.511 Acquired absence of right leg below knee; Z90.710 Acquired absence of both cervix and uterus; Z89.429 Acquired absence of other toe(s), unspecified side; Z87.891 Personal history of nicotine dependence; Z79.4 Long term (current) use of insulin; Z99.2 Dependence on renal dialysis
CPT/HCPCS: 36415; 71045; 80048; 80053; 82948; 83036; 83735; 83880; 84100; 84439; 84443; 84480; 85025; 85027; 87070; 87075; 87205; 87637; 93005; 96372; 96374; 96375; 96376; 97110; 97161; 97166; 97530; 97535; 99212; 99285; A9270; G0378; G0463; J1815; J1939; J1940; J2004; J2060; J2704; J3010; J7040; Q5105

== ENCOUNTER 2024-04-07 16:15 | Outpatient (NON) | payer MEDICARE, SELFPAY ==
--- OUTSIDE RECORDS SUMMARY | 2024-04-07 16:20 | XMS_ITS | Data Portability ---
Author Organization [facility] KELLYRyann Address [address] [place] [address] Care Team Providers Care Account Group Supervisor Name Role Phone TERESSA ZAZUETA Primary Care Provider Assessment No assessment recorded. Plan of Treatment Reminders Order Date Submit Date Provider Last Modified By Organization Details Last Modified Time Details Appointments None recorded. Lab CBC w/ auto diff 2022 023 [facility], [address] [place] [address], [place] [address], [place], [address], 3 03:07:57 CMP, serum or plasma 2022 023 [facility], [address] [place] [address], [facility] [address], [place], [address], 3 03:07:57 lipid panel, serum 2022 023 [facility], [address] [place] [address], [facility] [address], [place], [address], 3 03:07:58 HbA1c (hemoglobin A1c), blood 2023 024 [email or web address] In-Office Order, Internal Use Only DO Not Attach Compendium DO Not Attach Compendium, Do Not Delete/merge, [id number] 4 14:10:54 urinalysis, dipstick 2023 024 AN[facility] In-Office Order, Internal Use Only DO Not Attach Compendium DO Not Attach Compendium, Do Not Delete/merge, [id number] 4 12:11:18 culture, urine 2023 024 [facility], [address], [address], [place], [address], 4 01:07:[address] referral 2023 024 Lisa Medina MD (Dermatology) , [address], [address], [place], [address], 4 08:11:52 urologist referral 2023 024 [email or web address] Luis A Ku MD, [address] [place] [address], [place], [address], 4 08:06:01 wound care referral - PREFERS TO GO TO [facility] 2023 024 [facility], [address], [place], [address], 4 07:55:10 Procedures None recorded. Surgeries None recorded. Imaging MAMMO, screening, bilateral 2022 023 [email or web address] [facility], [address], [place], [address], 3 10:33:11 Medication Orders sulfamethox azole 800 mg-trimetho prim 160 mg tablet 2022 023 [email or web address] [facility]87304, [address], [place], [id number], 4 14:12:23 gabapentin 300 mg capsule 2022 024 [facility] #90764, [address], [place], [id number], 4 11:41:20 loratadine 10 mg tablet 2023 024 [facility] #99623, [address], [place], [id number], 4 14:15:52 permethrin 5 % topical cream 2023 024 [facility] #02448, [address], [place], [id number], 4 08:49:29 trazodone 50 mg tablet 2023 024 [facility] #48635, [address], [place], [id number], 4 14:32:13 triamcinolo ne acetonide 0.1 % topical ointment 2023 024 [facility] #19689, [address] [place] [address], [id number], 4 14:33:56 hydroxyzine HCl 50 mg tablet 2023 024 [facility] #45075, [address] [place] [address], [id number], 4 14:32:11 Trulicity 0.75 mg/0.5 mL subcutaneou s pen injector 2023 024 [facility] #81705, [address] [place] [address], [id number], 4 18:57:17 levothyroxi ne 125 mcg tablet 2023 024 [facility] #21059, [address] [place] [address], [id number], 12:07:45 Patient TargetsNo targets recorded. 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 Referring Physician: Teressa Zazueta [facility], Encounter Date: 06/29/2023 PREFERS TO GO TO [facility] Referring Physician: Teressa Zazueta [facility], Encounter Date: 09/28/2023 Urologist Referral for Reten tion of urine Referring Physician: Teressa Zazueta [facility], Encounter Date: 09/28/2023 Results Created Date Observation Date Name Description Value Unit Range Abnormal Flag Note LastModifiedBy Organization Detail LastModifiedTime 12/09/1912/16/2022 URINE CULTU RE ROUTI NE urine culture, routine Final report abnormal Not Available [facility] ([facility]) [address] [place], [address], 12/16/2022 10:16:15 12/09/1912/16/2022 URINE CULTU RE ROUTI NE result 1 Citrob acter aminah ii abnormal Great er than 100,0 00 colon y formi ng units per mL Not Available [facility] ([facility]) [address] [place], [address], 12/16/2022 10:16:15 12/09/1912/16/2022 URINE CULTU RE, ROUTI NE result 2 Raoult payton planti cola abnormal Great er than 100,0 00 colon y formi ng units per mL Not Available [facility] ([facility]) [address] [place], [address], 12/16/2022 10:16:15 12/09/19 23 12/16/2022 URINE CULTU RE, ROUTI NE antimicrobia l susceptibili ty Commen t S = Susce ptibl e; I = Inter media te; R = Resis tant P = Posit hailey; N = Negat hailey MICS are expre ssed in micro grams per mL Antib iotic RSLT# 1 RSLT# 2 RSLT# 3 RSLT# 4 Amoxi cilli n/Cla vulan ic Acid R S Ampic illin R R Cefaz arben R Cefep alexia S S Ceftr iaxon e S S Cefur oxime R S Cipro floxa sabi S S Ertap enem S Genta micin S S Imipe nem S S Levof loxac in S Merop enem S S Nitro furan toin S S Tetra cycli ne S S Tobra mycin S S Trime thopr im/Esparza lfa S S Not Available [facility] ([facility]) [address] [facility], [place], [address], 12/16/2022 10:16:15 12/09/19 23 12/08/2022 urina lysis , dipst ick Leukocytes Negati ve Not Available In-Office Order Internal Use Only DO Not Attach Compendium DO Not Attach Compendium, Do Not Delete/merge, [id number] 12/08/2022 15:16:27 12/09/19 23 12/08/2022 urina lysis , dipst ick Nitrite positi ve Not Available In-Office Order Internal Use Only DO Not Attach Compendium DO Not Attach Compendium, Do Not Delete/merge, [id number] 12/08/2022 15:16:27 12/09/19 23 12/08/2022 urina lysis , dipst ick Urobilinogen .2 Not Available In-Of fice Order Internal Use Only DO Not Attach Compendium DO Not Attach Compendium, Do Not Delete/merge, [id number] 12/08/2022 15:16:27 12/09/19 23 12/08/2022 urina lysis , dipst ick Protein 300 Not Available In-Office Order Internal Use Only DO Not Attach Compendium DO Not Attach Compendium, Do Not Delete/merge, 12/08/2022 15:16:12/09/19 23 12/08/2022 urina lysis , dipst ick pH 6.0 Not Available In-Office Order Internal Use Only DO Not Attach Compendium DO Not Attach Compendium, Do Not Delete/merge, 12/08/2022 15:16:12/09/19 23 12/08/2022 urina lysis , dipst ick Blood Modera te Not Available In-Office Order Internal Use Only DO Not Attach Compendium DO Not Attach Compendium, Do Not Delete/merge, 12/08/2022 15:16:12/09/19 23 12/08/2022 urina lysis , dipst ick Specific [place] 1.025 Not Available In-Off ice Order Internal Use Only DO Not Attach Compendium DO Not Attach Compendium, Do Not Delete/merge, 12/08/2022 15:16:12/09/19 23 12/08/2022 urina lysis , dipst ick Ketone Negati ve Not Available In-Office Order Internal Use Only DO Not Attach Compendium DO Not Attach Compendium, Do Not Delete/merge, 12/08/2022 15:16:12/09/19 23 12/08/2022 urina lysis , dipst ick Bilirubin Negati ve Not Available In-Office Order Internal Use Only DO Not Attach Compendium DO Not Attach Compendium, Do Not Delete/merge, 12/08/2022 15:16:12/09/19 23 12/08/2022 urina lysis , dipst ick Glucose 500 Not Available In-Office Order Internal Use Only DO Not Attach Compendium DO Not Attach Compendium, Do Not Delete/merge, 12/08/2022 15:16:12/09/19 23 12/08/2022 urina lysis , dipst ick Appearance Cloudy Not Available In-Offi ce Order Internal Use Only DO Not Attach Compendium DO Not Attach Compendium, Do Not Delete/merge, 12/08/2022 15:16:12/09/19 23 12/08/2022 urina lysis , dipst ick Color Dark Yellow Not Available In-Office Order Internal Use Only DO Not Attach Compendium DO Not Attach Compendium, Do Not Delete/merge, [id number] 12/08/2022 15:16:27 12/17/1912/16/2022 LIPID PANEL WITH LDL/H DL RATIO cholesterol, total 217 mg/dL 100-19 9 above high normal Not Available [facility] [address] [place], [address], 12/16/2022 21:16:11 12/17/1912/16/2022 LIPID PANEL WITH LDL/H DL RATIO triglyceride s 165 mg/dL 0-149 above high normal Not Available [facility] [address] [place], [address], 12/16/2022 21:16:11 12/17/1912/16/2022 LIPID PANEL WITH LDL/H DL RATIO HDL cholesterol 42 mg/dL 40-999 Not Available [facility] Department [address] [place], [address], 12/16/2022 21:16:11 12/17/1912/16/2022 LIPID PANEL WITH LDL/H DL RATIO VLDL cholesterol ivonne 33 mg/dL 5-[address] [facility] [address] [place], [address], 12/16/2022 21:16:11 12/17/1912/16/2022 LIPID PANEL WITH LDL/H DL RATIO LDL chol calc ([facility]) 164 mg/dL 0-99 above high normal Not Available [facility] [address] [place], [address], 12/16/2022 21:16:11 12/17/19 23 12/16/2022 LIPID PANEL WITH LDL/H DL RATIO LDL/HDL ratio 3.9 0-3.2 above high normal Not Available [facility] [address] [place], [address], 12/16/2022 21:16:11 10/04/20 23 12/16/2022 COMP. METAB OLIC PANEL (14) glucose 344 mg/dL 70-99 above high normal Not Available [facility] [address] [place], [address], 12/16/2022 21:16:11 12/17/19 23 12/16/2022 COMP. METAB OLIC PANEL (14) BUN 27 mg/dL 8-27 Not Available [facility] [address] [place], [address], 12/16/2022 21:16:11 12/17/19 23 12/16/2022 COMP. METAB OLIC PANEL (14) creatinine 2.19 mg/dL 0.76-1 .27 above high normal Not Available [facility] [address] [place] [address], [address], 12/16/2022 21:16:11 12/17/19 23 12/16/2022 COMP. METAB OLIC PANEL (14) eGFR 24 >=60 below low normal Units for eGFR value s are mL/mi n/1.7 3 The eGFR Calcu latio n has not been valid ated for patie nts under the age of 18. If test resul ts are displ ayed for a patie nt under the age of 18, disre vic that value . Not Available [facility] [address] [place] [address], [address], 12/16/2022 21:16:11 12/17/19 23 12/16/2022 COMP. METAB OLIC PANEL (14) BUN/creatini ne ratio 12 10-[address] [facility] [address] [place], [address], 12/16/2022 21:16:11 12/17/19 23 12/16/2022 COMP. METAB OLIC PANEL (14) sodium 134 mmol/ L 134-14 4 Not Available [facility] [address] [place], [address], 12/16/2022 21:16:11 12/17/19 23 12/16/2022 COMP. METAB OLIC PANEL (14) potassium 5.6 mmol/ L 3.5-5. 2 above high normal Not Available [facility] [address] [place], [address], 12/16/2022 21:16:11 12/17/19 23 12/16/2022 COMP. METAB OLIC PANEL (14) chloride 102 mmol/ L 96-106 Not Available [facility] [address] [place], [address], 12/16/2022 21:16:11 12/17/19 23 12/16/2022 COMP. METAB OLIC PANEL (14) carbon dioxide, total 20 mmol/ L 20-29 Not Available [facility] [address] [place], [address], 12/16/2022 21:16:11 12/17/19 23 12/16/2022 COMP. METAB OLIC PANEL (14) calcium 9.3 mg/dL 8.7-10 .3 Not Available [facility] [address] [place], [address], 12/16/2022 21:16:11 12/17/19 23 12/16/2022 COMP. METAB OLIC PANEL (14) protein, total 7.1 g/dL 6.0-8. 5 Not Available [facility] [address] [place], [address], 12/16/2022 21:16:11 12/17/19 23 12/16/2022 COMP. METAB OLIC PANEL (14) albumin 3.7 g/dL 3.8-4. 8 below low normal Not Available [facility] [address] [place], [address], 12/16/2022 21:16:11 12/17/19 23 12/16/2022 COMP. METAB OLIC PANEL (14) globulin, total 3.4 g/dL 1.5-4. 5 Not Available [facility] [address] [place], [address], 12/16/2022 21:16:11 12/17/19 23 12/16/2022 COMP. METAB OLIC PANEL (14) A/G ratio 1.0 1.2-2. 2 below low normal Not Available [facility] [address] [place], [address], 12/16/2022 21:16:11 12/17/19 23 12/16/2022 COMP. METAB OLIC PANEL (14) bilirubin, total 0.2 mg/dL 0.0-1. 2 Not Available [facility] [address] [place], [address], 12/16/2022 21:16:11 12/17/19 23 12/16/2022 COMP. METAB OLIC PANEL (14) alkaline phosphatase 143 IU/L 44-121 above high normal Not Available [facility] [address] [place], [address], 12/16/2022 21:16:11 12/17/19 23 12/16/2022 COMP. METAB OLIC PANEL (14) AST (SGOT) 12 IU/L 0-40 Not Available [facility] Department [address] [place], [address], 12/16/2022 21:16:11 12/17/19 23 12/16/2022 COMP. METAB OLIC PANEL (14) ALT (SGPT) 12 IU/L 0-32 Not Available [facility] Department [address] [place], [address], 12/16/2022 21:16:11 12/17/19 23 12/16/2022 CBC WITH DIFFE RENTI AL/PL ATELE T WBC 8.6 x10e3 /uL 3.4-10 .8 Not Available [facility] [address] [place], [address], 12/16/2022 21:16:11 12/17/19 23 12/16/2022 CBC WITH DIFFE RENTI AL/PL ATELE T RBC 3.92 x10e6 /uL 3.77-5 .28 Not Available [facility] [address] [place], [address], 12/16/2022 21:16:11 12/17/1912/16/2022 CBC WITH DIFFE RENTI AL/PL ATELE T hemoglobin 9.5 g/dL 11.1-1 5.9 below low normal Not Available [facility] [address] [place], [address], 12/16/2022 21:16:11 12/17/1912/16/2022 CBC WITH DIFFE RENTI AL/PL ATELE T hematocrit 32.3 % 34.0-4 6.6 below low normal Not Available [facility] [address] [place], [address], 12/16/2022 21:16:11 12/17/1912/16/2022 CBC WITH DIFFE RENTI AL/PL ATELE T MCV 82 fL 79-97 Not Available [facility] [address] [place], [address], 12/16/2022 21:16:11 12/17/1912/16/2022 CBC WITH DIFFE RENTI AL/PL ATELE T MCH 24.2 pg 26.6-3 3.0 below low normal Not Available [facility] [address] [place], [address], 12/16/2022 21:16:11 12/17/1912/16/2022 CBC WITH DIFFE RENTI AL/PL ATELE T MCHC 29.4 g/dL 31.5-3 5.7 below low normal Not Available [facility] [address] [place], [address], 12/16/2022 21:16:11 12/17/1912/16/2022 CBC WITH DIFFE RENTI AL/PL ATELE T RDW 15.8 % 11.5-1 4.5 above high normal Not Available [facility] [address] [place], [address], 12/16/2022 21:16:11 12/17/1912/16/2022 CBC WITH DIFFE RENTI AL/PL ATELE T platelets 367 x10e3 /uL 150-45 0 Not Available [facility] [address] [place], [address], 12/16/2022 21:16:11 12/17/1912/16/2022 CBC WITH DIFFE RENTI AL/PL ATELE T neutrophils 67 % notest b. Not Available [facility] [address] [place], [address], 12/16/2022 21:16:11 12/17/1912/16/2022 CBC WITH DIFFE RENTI AL/PL ATELE T lymphs 20 % notest b. Not Available [facility] [address] [place], [address], 12/16/2022 21:16:11 12/17/19 23 12/16/2022 CBC WITH DIFFE RENTI AL/PL ATELE T monocytes 7 % notest b. Not Available [facility] [address] [place], [address], 12/16/2022 21:16:11 12/17/1912/16/2022 CBC WITH DIFFE RENTI AL/PL ATELE T eos 5 % notest b. Not Available [facility] [address] [place], [address], 12/16/2022 21:16:11 12/17/19 23 12/16/2022 CBC WITH DIFFE RENTI AL/PL ATELE T basos 1 % notest b. Not Available [facility] [address] [place], [address], 12/16/2022 21:16:11 12/17/1912/16/2022 CBC WITH DIFFE RENTI AL/PL ATELE T neutrophils (absolute) 5.8 x10e3 /uL 1.4-7. 0 Not Available [facility] [address] [place], [address], 12/16/2022 21:16:11 12/17/1912/16/2022 CBC WITH DIFFE RENTI AL/PL ATELE T lymphs (absolute) 1.8 x10e3 /uL 0.7-3. 1 Not Available [facility] [address] [place], [address], 12/16/2022 21:16:11 12/17/1912/16/2022 CBC WITH DIFFE RENTI AL/PL ATELE T monocytes(ab solute) 0.6 x10e3 /uL 0.1-0. 9 Not Available [facility] [address] [place], [address], 12/16/2022 21:16:11 12/17/1912/16/2022 CBC WITH DIFFE RENTI AL/PL ATELE T eos (absolute) 0.4 x10e3 /uL 0.0-0. 4 Not Available [facility] [address] [place], [address], 12/16/2022 21:16:11 12/17/1912/16/2022 CBC WITH DIFFE RENTI AL/PL ATELE T baso (absolute) 0.1 x10e3 /uL 0.0-0. 2 Not Available [facility] [address] [place], [address], 12/16/2022 21:16:11 12/17/19 23 12/16/2022 CBC WITH DIFFE RENTI AL/PL ATELE T immature granulocytes 0.5 % notest b. Not Available [facility] [address] [place], [address], 12/16/2022 21:16:11 12/17/19 23 12/16/2022 CBC WITH DIFFE RENTI AL/PL ATELE T immature grans (abs) 0.0 x10e3 /uL 0.0-0. 1 Not Available [facility] [address] [place], [address], 12/16/2022 21:16:11 12/17/19 23 12/16/2022 CBC WITH DIFFE RENTI AL/PL ATELE T NRBC 0 % 0-0 Not Available [facility] [address] [place], [address], 12/16/2022 21:16:11 04/14/19 24 04/17/2023 URINE CULTU RE, ROUTI NE urine culture, routine Final report abnormal Not Available [facility] ([facility]) [address] [facility], [place], [address], 04/17/2023 20:09:56 04/14/19 24 04/17/2023 URINE CULTU RE, ROUTI NE result 1 Klebsi payton pneumo niae abnormal Great er than 100,0 00 colon y formi ng units per mL Cefaz arben <=4 ug/mL Cefaz arben with an GILDA <=16 predi cts susce ptibi lity to the oral agent s cefac gavino, cefdi kaycee, cefpo doxim e, cefpr ozil, cefur oxime , cepha lexin , and lorac arbef when used for thera py of uncom plica jenna urina ry tract infec tions due to E. coli, Klebs iella pneum oniae , and Prote us mirab ilis. Not Available [facility] ([facility]) [address] [facility], [place], [address], 04/17/2023 20:09:56 04/14/19 24 04/17/2023 URINE CULTU RE, ROUTI NE antimicrobia l susceptibili ty Commen t S = Susce ptibl e; I = Inter media te; R = Resis tant P = Posit hailey; N = Negat hailey MICS are expre ssed in micro grams per mL Antib iotic RSLT# 1 RSLT# 2 RSLT# 3 RSLT# 4 Amoxi cilli n/Cla vulan ic Acid S Ampic illin R Cefep alexia S Ceftr iaxon e S Cefur oxime S Cipro floxa sabi S Ertap enem S Genta micin S Imipe nem S Levof loxac in S Merop enem S Nitro furan toin S Piper acill in/Ta zobac alonso S Tetra cycli ne S Tobra mycin S Trime thopr im/Esparza lfa S Not Available [facility] ([facility]) [address] [facility], [place], [address], 04/17/2023 20:09:56 04/14/19 24 04/14/2023 urina lysis , dipst ick Appearance Turbid Not Available In-Offi ce Order Internal Use Only DO Not Attach Compendium DO Not Attach Compendium, Do Not Delete/merge, 04/14/2023 11:35:41 04/14/19 24 04/14/2023 urina lysis , dipst ick Color Red Not Available In-Office Order Internal Use Only DO Not Attach Compendium DO Not Attach Compendium, Do Not Delete/merge, 04/14/2023 11:35:41 04/14/19 24 04/14/2023 urina lysis , dipst ick Glucose 100 Not Available In-Office Order Internal Use Only DO Not Attach Compendium DO Not Attach Compendium, Do Not Delete/merge, 04/14/2023 11:35:41 04/14/19 24 04/14/2023 urina lysis , dipst ick Bilirubin Negati ve Not Available In-Office Order Internal Use Only DO Not Attach Compendium DO Not Attach Compendium, Do Not Delete/merge, 04/14/2023 11:35:41 04/14/19 24 04/14/2023 urina lysis , dipst ick Protein 300 Not Available In-Office Order Internal Use Only DO Not Attach Compendium DO Not Attach Compendium, Do Not Delete/merge, 04/14/2023 11:35:41 04/14/19 24 04/14/2023 urina lysis , dipst ick Blood Large Not Available In-Office Order Internal Use Only DO Not Attach Compendium DO Not Attach Compendium, Do Not Delete/merge, 04/14/2023 11:35:41 04/14/19 24 04/14/2023 urina lysis , dipst ick Specific [place] 1.030 Not Available In-Off ice Order Internal Use Only DO Not Attach Compendium DO Not Attach Compendium, Do Not Delete/merge, 04/14/2023 11:35:41 04/14/19 24 04/14/2023 urina lysis , dipst ick Ketone Trace Not Available In-Office Order Internal Use Only DO Not Attach Compendium DO Not Attach Compendium, Do Not Delete/merge, 04/14/2023 11:35:41 04/14/19 24 04/14/2023 urina lysis , dipst ick pH 7.5 Not Available In-Office Order Internal Use Only DO Not Attach Compendium DO Not Attach Compendium, Do Not Delete/merge, 04/14/2023 11:35:41 04/14/19 24 04/14/2023 urina lysis , dipst ick Leukocytes Large Not Available In-Offi ce Order Internal Use Only DO Not Attach Compendium DO Not Attach Compendium, Do Not Delete/merge, 04/14/2023 11:35:41 04/14/19 24 04/14/2023 urina lysis , dipst ick Nitrite positi ve Not Available In-Office Order Internal Use Only DO Not Attach Compendium DO Not Attach Compendium, Do Not Delete/merge, 04/14/2023 11:35:41 04/14/19 24 04/14/2023 urina lysis , dipst ick Urobilinogen .2 Not Available In-Of fice Order Internal Use Only DO Not Attach Compendium DO Not Attach Compendium, Do Not Delete/merge, 04/14/2023 11:35:41 05/25/19 24 05/25/2023 HbA1c (hemo globi n A1c), blood HbA1c 9.6% Not Available In-Office Order Internal Use Only DO Not Attach Compendium DO Not Attach Compendium, Do Not Delete/merge, [id number] 05/25/2023 14:10:39 09/28/19 24 10/02/2023 URINE CULTU RE, ROUTI NE urine culture, routine FINAL REPORT abnormal Not Available [facility] ([facility]) [address] [facility], [place], [address], 10/02/2023 01:07:56 09/28/19 24 10/02/2023 URINE CULTU RE, ROUTI NE result 1 KLEBSI PAYTON PNEUMO NIAE abnormal Great [place] than 100,0 00 colon y formi ng units per mL Cefaz arben <=4 ug/mL Cefaz arben with an GILDA <=16 predi cts susce ptibi lity to the oral agent s cefac gavino, cefdi kaycee, cefpo doxim e, cefpr ozil, cefur oxime , cepha lexin , and lorac arbef when used for thera py of uncom plica jenna urina ry tract infec tions due to E. coli, Klebs iella pneum oniae , and Prote us mirab ilis. Not Available [facility] ([facility]) [address] [facility], [place], [address], 10/02/2023 01:07:56 09/28/19 24 10/02/2023 URINE CULTU RE, ROUTI NE antimicrobia l susceptibili ty COMMEN T S = Susce ptibl e; I = Inter media te; R = Resis tant P = Posit hailey; N = Negat hailey MICS are expre ssed in micro grams per mL Antib iotic RSLT# 1 RSLT# 2 RSLT# 3 RSLT# 4 Amoxi cilli n/Cla vulan ic Acid S Ampic illin R Cefep alexia S Ceftr iaxon e S Cefur oxime S Cipro floxa sabi S Ertap enem S Genta micin S Imipe nem S Levof loxac in S Merop enem S Nitro furan toin S Piper acill in/Ta zobac alonso S Tetra cycli ne S Tobra mycin S Trime thopr im/Esparza lfa S Not Available [facility] ([facility]) [address] [facility], [place], [address], 10/02/2023 01:07:56 09/28/19 24 09/28/2023 urina lysis , dipst ick Leukocytes Modera te Not Available In-Office Order Internal Use Only DO Not Attach Compendium DO Not Attach Compendium, Do Not Delete/merge, 09/28/2023 12:07:33 09/28/19 24 09/28/2023 urina lysis , dipst ick Nitrite positi ve Not Available In-Office Order Internal Use Only DO Not Attach Compendium DO Not Attach Compendium, Do Not Delete/merge, 09/28/2023 12:07:33 09/28/19 24 09/28/2023 urina lysis , dipst ick Urobilinogen .2 Not Available In-Of fice Order Internal Use Only DO Not Attach Compendium DO Not Attach Compendium, Do Not Delete/merge, 09/28/2023 12:07:33 09/28/19 24 09/28/2023 urina lysis , dipst ick Protein Negati ve Not Available In-Office Order Internal Use Only DO Not Attach Compendium DO Not Attach Compendium, Do Not Delete/merge, 09/28/2023 12:07:33 09/28/19 24 09/28/2023 urina lysis , dipst ick pH 5.5 Not Available In-Office Order Internal Use Only DO Not Attach Compendium DO Not Attach Compendium, Do Not Delete/merge, 09/28/2023 12:07:33 09/28/19 24 09/28/2023 urina lysis , dipst ick Blood Hemoly zed: Trace Not Available In-Office Order Internal Use Only DO Not Attach Compendium DO Not Attach Compendium, Do Not Delete/merge, 09/28/2023 12:07:33 09/28/19 24 09/28/2023 urina lysis , dipst ick Specific [place] 1.015 Not Available In-Off ice Order Internal Use Only DO Not Attach Compendium DO Not Attach Compendium, Do Not Delete/merge, 09/28/2023 12:07:33 09/28/19 24 09/28/2023 urina lysis , dipst ick Ketone Trace Not Available In-Office Order Internal Use Only DO Not Attach Compendium DO Not Attach Compendium, Do Not Delete/merge, 09/28/2023 12:07:33 09/28/19 24 09/28/2023 urina lysis , dipst ick Bilirubin Small Not Available In-Offic e Order Internal Use Only DO Not Attach Compendium DO Not Attach Compendium, Do Not Delete/merge, 09/28/2023 12:07:33 09/28/19 24 09/28/2023 urina lysis , dipst ick Glucose Negati ve Not Available In-Office Order Internal Use Only DO Not Attach Compendium DO Not Attach Compendium, Do Not Delete/merge, 09/28/2023 12:07:33 09/28/19 24 09/28/2023 urina lysis , dipst ick Appearance Cloudy Not Available In-Offi ce Order Internal Use Only DO Not Attach Compendium DO Not Attach Compendium, Do Not Delete/merge, 09/28/2023 12:07:33 09/28/19 24 09/28/2023 urina lysis , dipst ick Color [place] Not Available In-Office Order Internal Use Only DO Not Attach Compendium DO Not Attach Compendium, Do Not Delete/merge, 09/28/2023 12:07:33 06/25/19 24 06/25/2023 XR, foot No observ ation record ed. [address], [place], [address], 06/25/2023 15:22:03 11/16/19 24 11/16/2023 CT, abdom en + pelvi s, w/o contr ast No observ ation record ed. [place] [id number], [place], [address], 11/16/2023 10:55:04 11/17/19 24 11/16/2023 US, doppl er, arter ial No observ ation record ed. [address], [place], [address], 11/17/2023 12:46:41 11/20/19 24 11/20/2023 CT, brain , w/ contr ast No observ ation record ed. [address], [place], [address], 11/23/2023 11:48:41 11/20/19 24 11/20/2023 US, jonele x, carot id arter y No observ ation record ed. [place] [address], [place], [address], 11/23/2023 11:49:34 11/23/19 24 11/23/2023 US, kidne y No observ ation record ed. [address], [place], [address], 11/23/2023 14:53:53 11/26/19 24 11/26/2023 imagi ng/di agnos tic resul t No observ ation record ed. [place] [address], [place], [address], 11/29/2023 08:15:29 11/26/19 24 11/26/2023 imagi ng/di agnos tic resul t No observ ation record ed. [address], [place], [address], 11/29/2023 08:15:06 12/01/19 24 12/01/2023 MRI, brain + brain stem, w/wo contr ast No observ ation record ed. [address], [place], [address], 12/01/2023 17:28:22 12/03/19 24 11/16/2023 US, doppl er echoc ardio gram No observ ation record ed. [facility] Not Available 2023 18:04:38 12/10/19 24 11/16/2023 trans -thor acic echoc ardio gram (TTE) (PROC ) No observ ation record ed. [facility] Not Available 2023 10:28:26 02/17/20 24 02/17/2024 XR, chest , 2 view No observ ation record ed. [address], [place], [address], 02/22/2024 08:16:28 Result Notes None recorded. Problems Name Problem SNOMED Code Status Onset Date Resolution Date Notes Provider Name and Address Organization Details Recorded Time Diabetes mellitus 86054720 Active 2018 EFRAÍN BANUELOS Attn: Donald forbes,[address] [place], [address], [place] [facility] 15:31:30 Hyperlipidem ia 54484321 Active 2020 Lisa German MD Attn: Donald forbes,[address] [place], [address], [place] [facility] 18:51:54 Coronary arterioscler osis 61911820 Active 2020 CABG x3 in 2017 EFRAÍN BANUELOS Attn: Donald g,[address] [place], [address], [place] [facility] 2 21:09:35 Gastroesopha geal reflux disease 605246031 Active 2020 EFRAÍN BANUELOS Attn: Donald g,[address] [place], [address], [place] [facility] 14:23:51 Essential hypertension 67999934 Active 2020 EFRAÍN BANUELOS Attn: Donald g,[address] [place], [address], [place] [facility] 14:24:22 Chronic kidney disease stage 4 182721241 Active 2021 EFRAÍN BANUELOS Attn: Donald forbes,[address] [facility], [place], [address], [place] [facility] 2 15:31:32 History of osteomyeliti s 591645199 Active 10/2021: removed R 4th and 5th toes EFRAÍN BANUELOS Attn: Donald forbes,[address] [facility], [place], [address], [place] [facility] 2 20:50:37 Alkaline phosphatase above reference range 552430834 Active 2021 EFRAÍN BANUELOS Attn: Donald forbes,[address] [facility], [place], [address], [place] [facility] 2 13:32:46 Vitamin D deficiency 77434647 Active 2021 EFRAÍN BANUELOS Attn: Donald forbes,[address] [facility], [place], [address], [place] [facility] 3 10:08:23 Uncontrolled type 2 diabetes mellitus 935943201 Active 2021 EFRAÍN BANUELOS Attn: Donald forbes,[address] [facility], [place], [address], [place] [facility] 10:08:30 Atrial fibrillation 23558181 Active 2022 EFRAÍN BANUELOS Attn: Ednatalia forbes,[address] [place], [address], [place] [facility] 3 14:31:21 Hypothyroidi sm 03431962 Active 2023 EFRAÍN BANUELOS Attn: Ednatalia forbes,[address] [facility], [place], [address], [place] [facility] 4 11:31:34 Problem Notes None recorded. Procedures Surgical History Date Name Laterality Status Provider Name and Address Organization Details Recorded Time 4 Incision & Drainage completed EFRAÍN BANUELOS Attn: Accounting,[address], [place], [address], [place] 05/25/2023 14:43:28 0 Amputation completed Leeann Lamb [place] 04/11/2020 12:17:23 8 Date of Last Mammogram completed [facility] 03/03/2019 15:47:31 coronary artery bypass grafts x 3 completed [facility] 03/03/2019 15:49:03 removal of ovarian cyst completed [facility] 03/03/2019 15:49:23 partial repair of rotator cuff completed [facility] 03/03/2019 15:50:13 extraction of cataract completed [facility] 03/03/2019 15:50:25 amputation completed Jennifer Green MA [place] - [place] 11/05/2021 17:04:58 Imaging Results Imaging Date Name Status LastModified by Organization Details LastModified Time 06/25/2023 XR, foot completed [address], [address], 06/25/2023 15:22:03 11/16/2023 CT, abdomen + pelvis, w/o contrast completed [address], [address], 11/16/2023 10:55:04 11/16/2023 US, doppler, arterial completed [address], [address], 11/17/2023 12:46:41 11/20/2023 CT, brain, w/ contrast completed [address], [address], 11/23/2023 11:48:41 11/20/2023 US, duplex, carotid artery completed [address], [address], 11/23/2023 11:49:34 11/23/2023 US, kidney completed [address], [address], 11/23/2023 14:53:53 11/26/2023 imaging/diagnostic result completed [address], [address], 11/29/2023 08:15:29 11/26/2023 imaging/diagnostic result completed [address], [address], 11/29/2023 08:15:06 12/01/2023 MRI, brain + brain stem, w/wo contrast completed [address], [address], 12/01/2023 17:28:22 11/16/2023 US, doppler echocardiogram completed [facility] Information not available 12/03/2023 18:04:38 11/16/2023 trans-thoracic echocardiogram (TTE) (PROC) completed [facility] Information not available 12/10/2023 10:28:26 02/17/2024 XR, chest, 2 view completed [address], [address], 02/22/2024 08:16:28 Procedure Notes None recorded. Medical Equipment None Reported. Allergies No known drug allergies Medications Name Sig Start Date Stop Date Status Note LastModified by Organization Details LastModified Time famotidin e 40 mg tabs 12/31 completed has not had chai couple weeks Not Available Not Available Not Available eliquis 5 mg tabs 08/23 completed Not Available Not Available Not Available ciproflox acin hydrochlo ride 500 mg tabs 09/06 completed Not Available Not Available Not Available Santyl 250 unit/gram topical ointment APPLY TO WOUND DAILY AND COVER active Not Available Not Available No t Available furosemid e 40 mg tablet TAKE 1 TABLET BY MOUTH ONCE DAILY 11/06 completed Not Available Not Available Not Available atorvasta tin 40 mg tablet TAKE 1 TABLET BY MOUTH EVERY DAY AT BEDTIME 2023 active Not Available Not Available Not Avai lable doxycycli ne hyclate 100 mg capsule TAKE ONE CAPSULE BY MOUTH EVERY 12 HOURS 08/30 completed Not Available Not Available Not Available bumetanid e 2 mg tablet active Not Available Not Available Not Available trazodone 50 mg tablet TAKE 1 TABLET BY MOUTH EVERY DAY AT BEDTIME FOR 50 DAYS FOR DEPRESSI ON OR SLEEP 2023 active Not Available Not Available Not Avai lable lisinopri l 20 mg-hydroc hlorothia zide 12.5 mg tablet Take 1 tablet every day by oral route in the morning. 12/31 completed caused dizzines s Not Available Not Available Not Available Novolin N NPH U-100 Insulin isophane 100 unit/mL subcutane ous susp Inject 63 units twice a day by subcutan eous route. 11/05 completed Not Available Not Available Not Available hydrocodo ne 5 mg-acetam inophen 325 mg tablet TAKE 1 TABLET BY MOUTH EVERY 6 HOURS NEEDED FOR PAIN active Not Available Not Available No t Available minocycli ne 100 mg capsule 12/16 completed Not Available Not Available Not Available lisinopri l 20 mg tablet TAKE 1 TABLET BY MOUTH EVERY DAY IN THE MORNING 11/04 completed Not Available Not Available Not Available famotidin e 40 mg tablet TAKE 1 TABLET BY MOUTH EVERY DAY IN THE MORNING active Not Available Not Available No t Available permethri n 5 % topical cream APPLY TOPICALL Y TO THE AFFECTED AREA 1 TIME. LEAVE ON FOR 8 TO 14 HOURS BEFORE WASHING OFF 06/29 completed Not Available Not Available Not Available amlodipin e 2.5 mg tablet TAKE 1 TABLET BY MOUTH EVERY MORNING active Not Available Not Available No t Available metronida zole 500 mg tablet TAKE 1 TABLET BY MOUTH EVERY 8 HOURS FOR 4 DAYS 11/05 completed Not Available Not Available Not Available hydroxyzi ne HCl 50 mg tablet TAKE 1 TABLET BY MOUTH THREE TIMES DAILY NEEDED FOR ANXIETY active Not Available Not Available No t Available clopidogr el 75 mg tablet 08/30 completed Not Available Not Available Not Available amlodipin e 5 mg tablet Take 1 tablet every day by oral route in the evening. 12/30 completed Not Available Not Available Not Available trimethop rim 100 mg tablet 03/03 completed Not Available Not Available Not Available ciproflox acin 500 mg tablet TAKE 1 TABLET BY MOUTH TWICE DAILY 06/28 completed Not Available Not Available Not Available sulfameth oxazole 800 mg-trimet hoprim 160 mg tablet TAKE 2 TABLETS BY MOUTH EVERY 12 HOURS WITH MEALS FOR 7 DAYS FOR UTI active Not Available Not Available No t Available glimepiri de 2 mg tablet TAKE 1 TABLET BY MOUTH TWICE DAILY BEFORE MEALS 11/05 completed Not Available Not Available Not Available oxycodone -acetamin ophen 5 mg-325 mg tablet 12/25 completed Not Available Not Available Not Available citalopra m 20 mg tablet Take 1 tablet every day by oral route. 12/30 completed Not Available Not Available Not Available potassium chloride ER 20 mEq tablet,ex tended release(p art/cryst ) TAKE 1 TABLET BY MOUTH ONCE DAILY 11/11 completed Not Available Not Available Not Available Novolin R Regular U-100 Insulin 100 unit/mL injection solution Take 30 units 3 times a day by injectio n route before meals. 11/05 completed Not Available Not Available Not Available cephalexi n 500 mg capsule TAKE 1 CAPSULE BY MOUTH EVERY 12 HOURS 11/05 completed Not Available Not Available Not Available levothyro xine 125 mcg tablet Take 1 tablet every day by oral route before meal(s) for 90 days, for hypothyr oidism. 2023 active Not Available Not Available Not Avai lable triamcino lone acetonide 0.1 % topical ointment APPLY THIN LAYER TOPICALL Y TO THE AFFECTED AREA TWICE DAILY FOR 14 DAYS active Not Available Not Available No t Available gabapenti n 300 mg capsule TAKE 1 CAPSULE BY MOUTH THREE TIMES DAILY NEEDED 09/27 completed Not Available Not Available Not Available cephalexi n 500 mg tablet Take 1 tablet every 8 hours by oral route with meals for 7 days. 05/28 completed Not Available Not Available Not Available hydroxyzi ne HCl 25 mg tablet TAKE 1 TABLET BY MOUTH THREE TIMES DAILY NEEDED 01/19 completed Not Available Not Available Not Available hydrochlo rothiazid e 25 mg tablet TAKE 1 TABLET BY MOUTH DAILY 11/05 completed Not Available Not Available Not Available furosemid e 20 mg tablet TAKE 1 TABLET BY MOUTH EVERY DAY IN THE MORNING FOR 14 DAYS 12/16 completed Not Available Not Available Not Available cefuroxim e axetil 500 mg tablet TAKE 1 TABLET BY MOUTH EVERY DAY WITH MEALS FOR 5 DAYS 05/21 completed Not Available Not Available Not Available levofloxa sabi 750 mg tablet TAKE 1 TABLET BY MOUTH EVERY DAY FOR 3 DAYS DIRECTED 05/21 completed Not Available Not Available Not Available Vitamin D2 1,250 mcg (50,000 unit) capsule Take 1 capsule every week by oral route. 12/30 completed Not Available Not Available Not Available lisinopri l 40 mg tablet TAKE 1 TABLET BY MOUTH EVERY DAY IN THE MORNING active Not Available Not Available No t Available cefdinir 300 mg capsule TAKE 1 CAPSULE BY MOUTH EVERY 12 HOURS FOR 1 WEEK 05/21 completed Not Available Not Available Not Available metformin ER 500 mg tablet,ex tended release 24 hr TAKE 1 TABLET BY MOUTH EVERY DAY AT DINNER 11/05 completed Not Available Not Available Not Available doxycycli ne hyclate 100 mg tablet TAKE 1 TABLET BY MOUTH TWICE DAILY 08/30 completed Not Available Not Available Not Available loratadin e 10 mg tablet TAKE 1 TABLET BY MOUTH DAILY AFTER A MEAL active Not Available Not Available No t Available gentamici n 0.1 % topical ointment APPLY TO WOUND TWICE DAILY COVER WITH DRY DRESSING 06/28 completed Not Available Not Available Not Available amoxicill in 500 mg-potass ium clavulana te 125 mg tablet TAKE 1 TABLET BY MOUTH THREE TIMES DAILY 11/05 completed Not Available Not Available Not Available ertapenem 1 gram solution for injection 12/16 completed Not Available Not Available Not Available Novolog FlexPen U-100 Insulin aspart 100 unit/mL (3 mL) subcutane ous ADMINIST ER UP TO 6 UNITS THREE TIMES A DAY BEFORE MEALS. 12/16 completed Not Available Not Available Not Available nitrofura ntoin monohydra te/macroc rystals 100 mg capsule Take 1 capsule every 12 hours by oral route for 7 days. 08/01 completed Not Available Not Available Not Available Dillan Aspirin 81 mg non chewable . 1 a day. 12/31 completed Not Available Not Available Not Available Novolin N NPH U-100 Insulin 63 units morning and evening. 12/31 completed Not Available Not Available Not Available Januvia 100 mg tablet TAKE 1 TABLET BY MOUTH EVERY DAY IN THE MORNING 05/28 completed Not Available Not Available Not Available Dakin's Solution 0.125 % 12/16 completed Not Available Not Available Not Available cholecalc iferol (vitamin D3) 1,250 mcg (50,000 unit) capsule TAKE ONE CAPSULE BY MOUTH EVERY WEEK WITH A MEAL active Not Available Not Available No t Available FeroSul 325 mg (65 mg iron) tablet TAKE 1 TABLET BY MOUTH DAILY AT 8 AM FOR 30 DAYS 01/19 completed Not Available Not Available Not Available Prevnar 13 (PF) 0.5 mL intramusc ular syringe 04/11 completed Not Available Not Available Not Available OneTouch Verio test strips USE TO TEST BLOOD SUGAR THREE TIMES DAILY active Not Available Not Available No t Available Eliquis 5 mg tablet Take 1 tablet twice a day by oral route as directed for 30 days. active Not Available Not Available No t Available Trulicity 0.75 mg/0.5 mL subcutane ous pen injector ADMINIST ER 0.75 MG UNDER THE SKIN EVERY WEEK AROUND THE CLOCK active Not Available Not Available No t Available Humalog KwikPen U-200 Insulin 200 unit/mL (3 mL) subcutane ous INJECT UP TO 20 UNITS UNDER THE SKIN THREE TIMES DAILY BEFORE MEALS. MAX DAILY DOSE OF 60 UNITS active Not Available Not Available No t Available Tresiba FlexTouch U-200 insulin 200 unit/mL (3 mL) subcutane ous pen ADMINIST ER 28 UNITS UNDER THE SKIN EVERY NIGHT active Not Available Not Available No t Available OneTouch Verio Flex Meter USE TO TEST BLOOD SUGAR THREE TIMES DAILY active Not Available Not Available No t Available Xultophy 100/3.6 100 unit-3.6 mg/mL (3 mL) subcutane ous insulin pen Inject 30 units every day by subcutan eous route in the morning for 30 days. 09/27 completed Not Available Not Available Not Available Ozempic 0.25 mg or 0.5 mg (2 mg/1.5 mL) subcutane ous pen injector INJECT 0.5 MG UNDER THE SKIN ONCE A WEEK AT DINNER 11/05 completed Not Available Not Available Not Available BD Samantha 2nd Gen Pen Needle 32 gauge x 5/32 DIRECTED active Not Available Not Available No t Available Flucelvax Quad (PF) 60 mcg (15 mcg x 4)/0.5 mL IM syringe 04/11 completed Not Available Not Available Not Available Vitals Date Recorded Body height Provider Name an d Address Organization Details Last Updated DateTime 12/16/2022 177.8 cm Jayde Messer [facility] 12/16/2022 09:50:58 Date Recorded Body mass index (BMI) Body weight Provider Name and Address Organization Details Last Updated DateTime 12/16/2022 34.5 kg/m2 991571.97 g Jayde Messer [facility] 1 09:56:03 Date Recorded Oxygen saturation Oxygen saturation in Arterial blood by Pulse oximetry Provider Name and Address Organization Details Last Updated DateTime 12/16/2022 98 % 98 % Jayde Messer [place] - [place] 12/16/2022 09:56:29 Date Recorded Heart rate Provider Name an d Address Organization Details Last Updated DateTime 12/16/2022 89 /min Jayde Messer [facility] 12/16/2022 09:56:32 Date Recorded Respiratory rate Provider Name a nd Address Organization Details Last Updated DateTime 12/16/2022 18 /min EFRAÍN BANUELOS Attn: Accounting[address] [place], [address], [place] - [place] 12/16/2022 10:00:04 Date Recorded Body height Provider Name an d Address Organization Details Last Updated DateTime 05/25/2023 177.8 cm PATRICE Rodas [facility] 14:05:08 Date Recorded Oxygen saturation Oxygen saturation in Arterial blood by Pulse oximetry Provider Name and Address Organization Details Last Updated DateTime 05/25/2023 96 % 96 % PATRICE Rodas - [facility] 05/25/2023 14:05:25 Date Recorded Heart rate Provider Name an d Address Organization Details Last Updated DateTime 05/25/2023 114 /min Aileen Boyer MA [facility] 14:05:27 Date Recorded Respiratory rate Provider Name a nd Address Organization Details Last Updated DateTime 05/25/2023 20 /min Aileen Boyer [place] [facility] 14:05:30 Date Recorded Body mass index (BMI) Body weight Provider Name and Address Organization Details Last Updated DateTime 05/26/2023 36.4 kg/m2 089835.67 g EFRAÍN BANUELOS Attn: Accounting,[address] [place], [address], [place] [facility] 05/26/2023 11:50:16 Date Recorded Heart rate Provider Name an d Address Organization Details Last Updated DateTime 05/26/2023 85 /min EFRAÍN BANUELOS Attn: Accounting[address] [place], [address], [place] [facility] 05/26/2023 11:50:26 Date Recorded Body height Provider Name an d Address Organization Details Last Updated DateTime 06/29/2023 177.8 cm Aileen Boyer [place] - [facility] 13:59:33 Date Recorded Oxygen saturation Oxygen saturation in Arterial blood by Pulse oximetry Provider Name and Address Organization Details Last Updated DateTime 06/29/2023 97 % 97 % Aileen Boyer [place] - [facility] 06/29/2023 13:59:48 Date Recorded Heart rate Provider Name an d Address Organization Details Last Updated DateTime 06/29/2023 94 /min PATRICE Rodas - [facility] 13:59:51 Date Recorded Respiratory rate Provider Name a nd Address Organization Details Last Updated DateTime 06/29/2023 18 /min Aileen Boyer [place] - [facility] 13:59:54 Date Recorded Body mass index (BMI) Body weight Provider Name and Address Organization Details Last Updated DateTime 06/29/2023 35 kg/m2 127809.94 g EFRAÍN BANUELOS Attn: Accounting,[address] [place], [address], [place] [facility] 06/29/2023 14:29:27 Date Recorded Body height Provider Name an d Address Organization Details Last Updated DateTime 09/28/2023 177.8 cm Lizeth Goel MA [facility] 4 11:13:58 Date Recorded Oxygen saturation Oxygen saturation in Arterial blood by Pulse oximetry Provider Name and Address Organization Details Last Updated DateTime 09/28/2023 100 % 100 % Lizeth Goel MA [facility] 09/28/2023 11:14:22 Date Recorded Heart rate Provider Name an d Address Organization Details Last Updated DateTime 09/28/2023 86 /min Lizeth Goel MA [facility] 11:14:29 Date Recorded Respiratory rate Provider Name a nd Address Organization Details Last Updated DateTime 09/28/2023 18 /min Lizeth Goel MA [facility] 11:14:32 Date Recorded Systolic blood pressure Diastolic blood pressure Provider Name and Address Organization Details Last Updated DateTime 12/16/2022 142 mm[Hg] 80 mm[Hg] Jayde Ayde [facility] 12/16/2022 09:57:53 Date Recorded Systolic blood pressure Diastolic blood pressure Provider Name and Address Organization Details Last Updated DateTime 05/25/2023 123 mm[Hg] 71 mm[Hg] Aileen Boyer MA [facility] 05/25/2023 14:05:15 Date Recorded Systolic blood pressure Diastolic blood pressure Provider Name and Address Organization Details Last Updated DateTime 06/29/2023 132 mm[Hg] 75 mm[Hg] Aileen Boyer MA [facility] 06/29/2023 13:59:40 Date Recorded Systolic blood pressure Diastolic blood pressure Provider Name and Address Organization Details Last Updated DateTime 09/28/2023 139 mm[Hg] 87 mm[Hg] Lizeth Goel MA [facility] 09/28/2023 11:14:14 Date Recorded Systolic blood pressure Diastolic blood pressure Provider Name and Address Organization Details Last Updated DateTime 09/28/2023 130 mm[Hg] 80 mm[Hg] EFRAÍN BANUELOS Attn: Accounting,[address] [facility], [place], [address], [facility] 09/28/2023 12:17:46 Social History Question Answer Notes LastModified by Organizat ion Details LastModified Time Tobacco Smoking Status Former Smoker Quit 2006 Leeann Lamb MA null, [facility] 08/02/2019 10:20:41 Do You Have An Advance Directive? No Information not available 05/28/2021 What Is Your Level Of Alcohol Consumption? Occasional [email or web address] Information not available 12/31/2020 Are You Blind Or Do You Have Difficulty Seeing? No [email or web address] Information not available 12/31/2020 What Is Your Level Of Caffeine Consumption? Moderate Information not available 12/31/2020 How Much Tobacco Do You Chew? None Information not available 04/11/2020 In The 14 Days Before Symptom Onset, Have You Had Close Contact With A Laboratory-confir med COVID-19 While That Case Was Ill? No Information not available 08/23/2020 In The 14 Days Before Symptom Onset, Have You Had Close Contact With A Person Who Is Under Investigation For COVID-19 While That Person Was Ill? No Information not available 08/23/2020 Have You Been To An Area Known To Be High Risk For COVID-19? No Information not available 08/23/2020 Are You Currently Employed? No [email or web address] Information not available 12/31/2020 Are You Deaf Or Do You Have Serious Difficulty Hearing? No [email or web address] Information not available 12/31/2020 What Type Of Diet Are You Following? REGULAR [email or web address] Information not available 12/31/2020 Which Illicit Or Recreational Drugs Have You Used? None Information not available 04/11/2020 Do You Or Have You Ever Used E-cigarettes Or Vape? Never Used Electronic Cigarettes Information not available 03/03/2019 Are There Any Guns Present In Your Home? No Information not available 05/28/2021 Hard Of Hearing Or Deaf In One Or Both Ears? No Information not available 04/11/2020 Legally Blind In One Or Both Eyes? No Information no t available 04/11/2020 Do You Have A High School Diploma Or Higher Education? Yes Information not available 05/28/2021 Do You Sometimes Have To Miss Your Medical Appointments Due To Difficult Getting Transportation? No Information not available 05/28/2021 Do You Feel Unfairly Treated Due To Things Such As Race, Age, Gender, Disability Or Some Other Reason? No Information not available 05/28/2021 Do You Feel Physically And Emotionally Safe While Living At Home? Yes Information not available 05/28/2021 Do You Feel Physically And Emotionally Safe In Your Neighborhood Or Other Public Places? Yes Information not available 05/28/2021 What Was The Date Of Your Most Recent Tobacco Screening? 09/28/2023 Information not available 09/28/2023 What Is Your Relationship Status? Information not available 05/28/2021 Do You Use Your Seat Belt Or Car Seat Routinely? Yes [email or web address] Information not available 12/31/2020 Are You Sexually Active? No Information not available 05/28/2021 Do You Have Smoke And Carbon Monoxide Detectors In Your Home? Yes Information not available 08/23/2020 At What Age Did You Start Smoking Tobacco? 18 Information not available 05/28/2021 Are You Passively Exposed To Smoke? Yes Information no t available 04/11/2020 Do You Or Have You Ever Used Smokeless Tobacco? Never Used Smokeless Tobacco Information not available 03/03/2019 How Much Tobacco Do You Smoke? 1 PPD Information not available 03/03/2019 Do You Feel Stressed (tense, Restless, Nervous, Or Anxious, Or Unable To Sleep At Night)? [id number] [email or web address] Information not available 12/31/2020 Do You Use Sunscreen Routinely? Yes Information not available 05/28/2021 On What Date Was Tobacco Cessation Counseling Provided? 09/28/2023 Information not available 09/28/2023 How Many Years Have You Smoked Tobacco? 30 Information not available 03/03/2019 Do You Or Have You Ever Used Any Other Forms Of Tobacco Or Nicotine? No Information not available 05/28/2021 Sex: Female Functional Status Question Answer Note LastModified by Organizat ion Details LastModified Time Are you able to care for yourself? Yes [email or web address] Information not available 12/31/2020 What is your exercise level? Occasional [email or web address] Information not available 12/31/2020 Mental Status None recorded. Family History Relationship Description Onset Age of this Age Resolved Age Notes LastModified by Organization Details LastModified Time Father No current problems or disability Not available 08/23 17:04:16 Mother No current problems or disability Not available 08/23 17:04:16 Notes:cancer - sister - dese ased Medical History Condition Response Coronary Artery Disease N Other N High Blood Pressure Y Atrial Fibrillation N Thyroid Problems Y Kidney or Bladder Problems Y GI Problems N Depression Y COPD N Blood Clots N Skin Problems N Eating Disorder Y Anemia N Heart Attack ([place]) N Anxiety Disorder N Diabetes Y Muscle, Joint, or Bone Problems N Seizures/Epilepsy N Acid Reflux (GERD) Y Cancer N Stroke N Asthma N Allergies N ADHD N Substance Abuse N High Cholesterol Y Hepatitis N Liver Disease N Schizophrenia N Headaches N Heart Failure N Osteoporosis N Gynecological History Statement/Question Response Date of Last Pap Smear Date of Last Mammogram 02/16/2018 Obstetrics History GPAL:G 4 P 4 0 0 4 Type Value Multiple Births 0 Full Term 4 Induced 0 Spontaneous 0 Premature 0 Living 4 Ectopics 0 Total 4 Immunizations Vaccine Type Date Status Note Provider Nam e and Address Organization Details Recorded Time influenza,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
--- OUTSIDE RECORDS SUMMARY | 2024-04-07 16:20 | XMS_ITS | Continuity of Care Document ---
Author Organization formerly [facility] Address [address] [place] [address] [facility] [address] [place] [address] Phone Care Team Providers Care Life Skills Instructor Name Role Phone Arron Gutiérrez Unavailable Unavailable Procedures Procedure Date Eye Exam Established Pt IOLMaster Eye Exam & Treatment Advance Directives Directive Yes / No Effective Date File Name No Information Encounters Encounter Description Practice Location Reason(s) For Visit Diagnoses Date Provider Providers Copied on Encounter [facility], [id number] [place] [address] [address], [place], [place], [id number], [place] tel:[phone] [facility] No Information [address] H[address]. [address], [address], [place]. tel:[phone] Referring Provider: Alok Fortune [address] [place], [address] . tel:[phone] [facility], [address] [place] [address] [address], [place], [place], [id number], [place] tel:[phone] [facility] No Information [address] Lisa Dickinson. [address] [facility] [place], [id number], [place]. tel:[phone] Family History Family Member Type Diagnosis Age At Onset No Information Payers Payer name Insurance type Covered alliance party ID Yaron jones(s) [employer] [facility] [id number] Social History Type Description Quantity Date Captured Comments Sex Female Smoking Status No Information Chief Complaint And Reason For Visit No Information Reason For Referral Reason For Referral No Information History Of Present Illness Encounter Date Complaint History Of Prese nt Illness No Information Functional Status Date Functional Assessmen t No Information Instructions Date Instruction Additional Infor mation No Information Assessments Type Assessment Date No Information Patient Care Teams Name Effective Dates (start - stop) Status Members No Information
--- OUTSIDE RECORDS SUMMARY | 2024-04-07 16:21 | XMS_ITS | Clinical Summary ---
Author Organization [facility] Address [address] [place] [address] Phone Care Team Providers Care Altitude Chamber Technician Name Role Phone Teressa De Jesus Primary Care Provider [phone] Allergies Active Allergy Reactions Criticality Noted Date Comments Statins muscle pain Medium 09/03/2020 Medications Medication Sig Dispensed Refills Start Date End Date Status atorvastatin (LIPITOR) 40 MG tablet Take 40 mg by mouth every night 05/05/2020 Active lisinopril-hydroCHLOR Othiazide (PRINZIDE) 20-12.5 MG per tablet Take by mouth 1/2 tab qday Active insulin NPH, Isophane, (HumuLIN) 100 UNIT/ML injection Inject under the skin 2 (two) times a day before meals Active famotidine (PEPCID) 40 MG tablet Take by mouth 1 (one) time each day Active insulin regular (HumuLIN) 100 UNIT/ML injection Inject under the skin 3 (three) times a day before meals Active SITagliptin (JANUVIA) 100 MG tablet Take 1 tablet every day by oral route. 09/10/2019 Active amLODIPine (NORVASC) 2.5 MG tablet Take 2.5 mg by mouth 1 (one) time each day in the morning 10/24/2021 Active FeroSul 325 (65 Fe) MG tablet TAKE 1 TABLET BY MOUTH DAILY AT 8 AM FOR 30 DAYS 09/25/2021 Active NovoLOG FlexPen ReliOn 100 UNIT/ML injection ADMINISTER UP TO 6 UNITS THREE TIMES A DAY BEFORE MEALS. 10/07/2021 Active BD Pen Needle Samantha 2nd Gen 32G X 4 MM misc USE DIRECTED TO INJECT INSULIN ONCE DAILY 09/27/2021 Active Ozempic, 0.25 or 0.5 MG/DOSE, 2 MG/1.5ML solution pen-injector INJECT 0.5 MG UNDER THE SKIN ONCE A WEEK AT DINNER 09/27/2021 Active Sodium Hypochlorite (Dakins, 1/4 strength,) 0.125 % solution 09/16/2021 Active furosemide (LASIX) 40 MG tablet Take 40 mg by mouth 1 (one) time each day 10/28/2021 Active levothyroxine (SYNTHROID) 50 MCG tablet Take 50 mcg by mouth daily Active hydroCHLOROthiazide (HYDRODIURIL) 25 MG tablet daily Active glimepiride (AMARYL) 2 MG tablet every 12 hours Active Eliquis 5 MG tablet 11/19/2021 Activ e hydrOXYzine (ATARAX) 25 MG tablet Take 25 mg by mouth 3 (three) times a day if needed 11/11/2021 Active Active Problems Problem Noted Date Diagnosed Date Acute osteomyelitis of ankle and/or foot 022 Overview (11/25/2021): Added automatically from request for surgery [id number] Ulcer of toe 10/10/2021 Overview (11/25/2021): Added automatically from request for surgery [id number] Type II diabetes mellitus uncontrolled 2 Acute diastolic congestive heart failure 022 Stage 3a chronic kidney disease 09/03/2020 Polyneuropathy due to type 2 diabetes mellitus 0 09/27/2019 Overview (05/20/2020): Added automatically from request for surgery [id number] History of coronary artery bypass grafting 03/29 Persistent atrial fibrillation 03/29/2019 Stem cell donor 03/22/2019 Obesity 02/24/2017 Overview (05/20/2020): Last Assessment & Plan: Continue to follow plan per Rd. Exercise limited Coronary atherosclerosis 09/10/2014 Overview (05/20/2020): CAD - Coronary artery disease Disease type AND/OR category unknown 09/10/2014 Overview (05/20/2020): Type II diabetes mellitus uncontrolled Ex-smoker 09/10/2014 Overview (05/20/2020): Former smoker Neuropathy due to diabetes mellitus 09/10/2014 Overview (05/20/2020): Diabetic neuropathy Proteinuria 09/10/2014 Overview (05/20/2020): Proteinuria Type 2 diabetes mellitus 06/07/2013 Overview (05/20/2020): DMII WO CMP UNCNTRLD Last Assessment & Plan: Being more consistent with carb intake and using specific insulin plan now. Will not recommend any changes today as hypoglycemia is stable now and control is complicated by hyperbaric treatment and now potential for abdominal issues. Send in sugars weekly so that trends can be evaluated and insulin adjusted. Follow up 2 months. Hypertension 01/11/2013 Overview (05/20/2020): HYPERTENSION NOS Last Assessment & Plan: Controlled on current medications. Pure hypercholesterolemia 01/11/2013 Overview (05/20/2020): PURE HYPERCHOLESTEROLEM Last Assessment & Plan: Check lipid panel next OV Immunizations Name Administration Dates Next Due Influenza, Injectable, Quadrivalent 12/20/2019 Influenza, Injectable, Quadrivalent, Preservativ e Free 01/27/2017,01/21/2017 Influenza, Quadrivalent 05/31/2015 Pneumococcal Conjugate 13-Valent 12/14/2019 Sars-cov-2, Unspecified 06/25/2020 Family History Medical History Relation Comments Heart disease Father Cancer Sister Relation Status Comments Father Sister Social History Tobacco Use Types Packs/Day Years Used Date Smoking Tobacco: Former Cigarettes Smokeless Tobacco: Never Alcohol Use Standard Drinks/Week Comments Yes 0 (1 standard drink = 0.6 oz pur e alcohol) social use Sex and Gender Information Value Date Recorded Sex Assigned at Not on file Gender Identity Not on file Sexual Orientation Not on file Last Filed Vital Signs Vital Sign Reading Time Taken Comments Blood Pressure 136/76 11/26/2021 11:04 AM CDT Pulse - - Temperature 36.2 ??C (97.1 ??F) 11/26/2021 11:04 AM C DT Respiratory Rate 18 11/26/2021 11:04 AM CDT Oxygen Saturation - - Inhaled Oxygen Concentration - - Weight 112 kg (246 lb) 11/26/2021 11:04 AM CDT Height 180.3 cm (5' 11 ) 11/26/2021 11:04 AM CDT Body Mass Index 34.31 11/26/2021 11:04 AM CDT Plan of Treatment Health Maintenance Due Date Last Done Comments Pneumococcal PPSV23/PCV13 65 + Years / Low and Medium Risk (2 of 3 - PPSV23 or PCV20) 2021 12/14/2019 Influenza Vaccine (#1) 2023 01/27/2017, 2016 Care Teams Altitude Chamber Technician Relationship Specialty Start Date End Date Teressa De Jesus PA [address] [place] [address] PCP - General Family Medicine 06/25/21
--- OUTSIDE RECORDS SUMMARY | 2024-04-07 16:21 | XMS_ITS | Referral Summary ---
Author Organization [facility] Building B Address [address] [place] [address] Care Team Providers Care Dinkey Operator Slate Name Role Phone Teressa De Jesus Primary Care Provider [phone] Teressa De Jesus Unavailable [phone] Hien Amato DPM Unavailable [phone] Encounters Date Type Department Care Team Description 03/13/2024 Telephone [facility] Diabetes Endocrine Care at [address] [address] Yasemin Gunn, ECHO 02/29/2024 Orders Only [facility] Diabetes Endocrine Care at [address] [address] Yasemin Gunn, ECHO Type 2 diabetes mellitus with hyperglycemia, with long-term current use of insulin (HCC) (Primary Dx) 02/29/2024 Telephone [facility] Diabetes Endocrine Care at [address] [address] Yasemin Gunn, ECHO 01/28/2024 Telephone [facility] Diabetes Endocrine Care at [address] [address] Yasemin Gunn, ECHO 01/12/2024 Telephone [facility] Diabetes Endocrine Care at [address] [place] [address] Yasemin Gunn, BIKE TECHNICIAN from Last 3 Months Allergies Active Allergy Reactions Criticality Noted Date Comments Semaglutide Nausea & Vomiting Low 03/18/2022 Gnalnbk-Fou-Ziu Reductase Inhibitors Muscle pain Medium 09/03/2020 Medications pen needle, diabetic (UNIFINE PENTIPS PLUS) 31 gauge x 5/16 needle 2 x a day 200 1 05/28/19 12 Active insulin syringe-needle U-100 1 mL 30 gauge x 1/2 syringe Use new syringe up to 5 times per day 150 Syringe 3 10/27/19 16 Active amLODIPine (NORVASC) 2.5 mg tablet Take 1 tablet (2.5 mg total) by mouth daily Active lisinopriL (PRINIVIL,ZESTRIL) 40 mg tablet Take 1 tablet (40 mg total) by mouth daily Active hydrOXYzine (ATARAX) 50 mg tablet Take 1 tablet (50 mg total) by mouth 3 (three) times a day as needed 01/20/20 Active insulin lispro (HumaLOG) 200 unit/mL (3 mL) pen for injection Inject 0.05 mL (10 Units total) under the skin 3 (three) times a day before meals If blood sugar >200-take 12 units, if >250 take 14 units, if > 300-take 16 units, if >350- take 18 units, if >400 take 20 units. Total daily dose 60 units. E11.65 30 mL 5 03/18/19 23 Active levothyroxine (SYNTHROID) 125 mcg tabletIndications: Acquired hypothyroidism Take 1 tablet (125 mcg total) by mouth massage operator before breakfast 90 tablet 3 12/17/19 23 Active cholecalciferol (VITAMIN D-3) 50,000 unit capsule TAKE ONE CAPSULE BY MOUTH EVERY WEEK WITH A MEAL Active clopidogreL (PLAVIX) 75 mg tablet Take 1 tablet (75 mg total) by mouth daily 30 tablet 11 01/09/20 23 Active Baqsimi 3 mg/actuation spray,non-aerosolI ndications:patient with diabetes mellitus at risk of hypoglycemia Administer 1 spray into one nostril as needed (use for severe hypoglycemia requiring the assistance of another.) E11.65 2 each 11 06/20 23 Active Additional Information Patient not taking.Reported on 08/25/2023 famotidine (PEPCID) 40 mg tablet Take 1 tablet (40 mg total) by mouth daily Active insulin degludec (TRESIBA) 200 unit/mL (3 mL) pen for injection Inject 0.16 mL (32 Units total) under the skin nightly Active traZODone (DESYREL) 50 mg tablet Take 1 tablet (50 mg total) by mouth nightly Active atorvastatin (LIPITOR) 40 mg tablet Take 1 tablet (40 mg total) by mouth nightly 08/05/19 24 025 Active loratadine 10 mg capsule Take by mouth Active bumetanide (BUMEX) 2 mg tablet Take 1 tablet (2 mg total) by mouth daily 90 tablet 3 09/27/19 24 025 Active blood glucose diagnostic (OneTouch Verio test strips) stripIndications:T ype 2 diabetes mellitus with hyperglycemia, with long-term current use of insulin (HCC) Use to test blood sugars 3 times a day ( onetouch verio strips) e11.65 300 each 01/28/20 Active blood-glucose meter (OneTouch Verio Flex Start) kitIndications:Typ e 2 diabetes mellitus with hyperglycemia, with long-term current use of insulin (HCC) Use to test blood sugars 3 times a day ( onetouch verio meter) e11.65 1 kit 01/28/20 Active apixaban (Eliquis) 5 mg tablet Take 1 tablet (5 mg total) by mouth 2 (two) times a day 60 tablet 03/10/20 24 025 Active Eliquis 5 mg tablet TAKE 1 TABLET(5 MG) BY MOUTH TWICE DAILY 60 tablet 06/09/19 23 024 Discontin ued(Reord er) Active Problems Problem Noted Date Diagnosed Date Acute cystitis without hematuria 07/29/2023 Anemia of chronic disease 07/29/2023 Stage 3b chronic kidney disease 07/29/2023 GERD (gastroesophageal reflux disease) Gangrene of right foot (CMS/HCC) 07/27/2023 Gangrene (CMS/HCC) 07/07/2023 Ulcer of right heel, with necrosis of muscle Ulcer of right pretibial region, with fat layer exposed 07/07/2023 Skin ulcer of popliteal mónica on, left, with fat layer exposed 07/07/2023 Diabetic foot ulcer with osteomyelitis freestyle yesi 2 continuous glucose monitoring device 07/07/2022 Assessment & Plan (02/17/2023 3:44 PM TUB WASHER): Continuous glucose monitor (cgm) applied from 02/04/2023 to 02/17/2023 This device was placed for monitor and treatment of blood sugar. Interpretation of data- in target range 61% 0 hypoglycemia hyperglycemia 39% average glucose is 183 Assessment & Plan (01/06/2023 3:11 PM CDT): She has not been wearing her sensor but plans to reestablish wearing it. Assessment & Plan (07/07/2022 5:08 PM CDT): Continuous glucose monitor (cgm) applied from 06/24 to 07/07/2022 This device was placed for monitor and treatment of blood sugar. Interpretation of data- in target range 18% of the time. Hyperglycemia 81% of the time. Hypoglycemia -1% of the time. Average blood sugar 222. Chronic diastolic congestive heart failure (CMS/ HCC) 03/24/2022 Acquired hypothyroidism 03/18/2022 Assessment & Plan (07/07/2022 5:03 PM CDT): This is a chronic condition which is not at goal of TSH between 0.3 to 4.2 mclUnits/ml Personally reviewed lab. Lab Results Component Value Date TSH 8.25 (H) 03/18/2022 ContinueLevothryoxine 125 mcg po daily in am Discussed the importance of taking Levothryoxine on a empty stomach, which means one hour before eating or two hours after eating. Discussed food in the stomach will interfere with absorption of Levothyroxine. Discussed Calcium, antacids and iron supplements will interfere with the absorption of Levothyroxine, encouraged to take these at a different time of the day. Repeat TSH, T4 Assessment & Plan (03/31/2022 3:47 PM TUB WASHER): This is a chronic condition which is improving but not at goal. Personally reviewed lab. Lab Results Component Value Date TSH 8.25 (H) 03/18/2022 Goal is for TSH to be between 0.3 to 4.2 mclUnits/ml 107kg weight. Continue Levothryoxine 125 mcg po daily in am Discussed the importance of taking Levothryoxine on a empty stomach, which means one hour before eating or two hours after eating. Discussed food in the stomach will interfere with absorption of Levothyroxine. Discussed Calcium, antacids and iron supplements will interfere with the absorption of Levothyroxine, encouraged to take these at a different time of the day. Repeat TSH, t3, T4, tpo, thyroid stimulating immunoglobins in 8weeks, Assessment & Plan (03/18/2022 3:34 PM TUB WASHER): This is a chronic condition which is stable, not at goal. Personally reviewed lab. Lab Results Component Value Date TSH 8.25 (H) 03/18/2022 Goal is for TSH to be between 0.3 to 4.2 mclUnits/ml 107kg weight. start Levothryoxine 125 mcg po daily in am Discussed the importance of taking Levothryoxine on a empty stomach, which means one hour before eating or two hours after eating. Discussed food in the stomach will interfere with absorption of Levothyroxine. Discussed Calcium, antacids and iron supplements will interfere with the absorption of Levothyroxine, encouraged to take these at a different time of the day. Repeat TSH, t3, T4, tpo, thyroid stimulating immunoglobins in 8weeks, Medication sheet states patient was taking levothyroxine 50 mcg. She states the PCP told her that was wrong and she stopped taking it. She does not believe she has ever had thryoid disease. As per the EMR she previously saw Debra Ibanez at Dr. Ruiz's office in 2016 2017. There is no mention of thyroid disease. Peripheral arterial disease 11/12/2021 Coronary artery disease invo lving coronary bypass graft of sycuan heart without angina pectoris 11/12/2021 Ulcer of toe of right foot, with necrosis of mus kendell 10/10/2021 Overview (10/10/2021): Added automatically from request for surgery [id number] Acute osteomyelitis of right ankle or foot 10/10 Overview (10/10/2021): Added automatically from request for surgery [id number] Acute diastolic congestive heart failure ([facility]) 07/23/2021 On continuous oral anticoagulation 02/12/2021 Diabetic polyneuropathy asso ciated with type 2 diabetes mellitus ([facility]/HCC) 09/27/2019 Overview (09/27/2019): Added automatically from request for surgery [id number] Persistent atrial fibrillation 03/29/2019 Hx of CABG 03/29/2019 Stem cell donor 03/22/2019 Class 1 obesity due to exces s calories with serious comorbidity and body mass index (BMI) of 34.0 to 34.9 in adult 02/24/2017 Assessment & Plan (02/17/2023 3:43 PM TUB WASHER): This is a chronic condition which has improved Additional 3 lb weight loss since last office visit Encourage continuing healthy eating and exercise She is been prepping food for her meal Her exercise is limited due to her ambulation problems Assessment & Plan (07/07/2022 5:06 PM CDT): This is a chronic condition which is worsening 21 lb weight gain since starting insulin Encouraged weight loss Will start Xultophy - hopefully the Victoza will help suppress her appetite Repeat TSH/free T4 ordered Assessment & Plan (03/31/2022 3:47 PM TUB WASHER): This is a chronic condition which is improving 6 lb weight loss since last office visit Encourage continuing weight loss Has appointment to see dietitian in the next 2 weeks Assessment & Plan (03/18/2022 3:35 PM TUB WASHER): This is a chronic condition which is improving Encourage continue weight loss Follow with environmental educator/nutritional counseling Assessment & Plan (04/13/2017 1:54 PM TUB WASHER): Continue to follow plan per Rd. Exercise limited Assessment & Plan (02/24/2017 3:58 PM TUB WASHER): Current BMI includes ortho boot therefor not reliable. Agree with follow up with RD Proteinuria 09/10/2014 Overview (06/18/2016): Proteinuria Former smoker 09/10/2014 Overview (06/18/2016): Former smoker Coronary artery disease invo lving sycuan coronary artery of sycuan heart without angina pectoris 09/10/2014 Overview (06/18/2016): CAD - Coronary artery disease Type 2 diabetes mellitus wit h hyperglycemia, with long-term current use of insulin 06/07/2013 Overview (06/18/2016): DMII WO CMP UNCNTRLD Assessment & Plan (02/17/2023 3:43 PM TUB WASHER): This is a chronic condition which is improving but not at goal of less than 7%. Personally reviewed most recent A1c - 8% per sensor download Lab Results Component Value Date HGBA1C 10.6 01/06/2023 Personally reviewed POC blood sugar- not at goal 80-180 Lab Results Component Value Date POCGLU 228 02/17/2023 Medication- continue tresiba 42 units daily, continue humalog U200 10 units prior to meals- If blood sugar >200-take 12 units, if >250 take 14 units, if > 300-take 16 units, if >350- take 18 units, if >400 take 20 units. Total daily dose 60 units. She did not tolerate Ozempic it caused her to be sick Monitor blood sugar continuously with sensor. Encouraged annual eye exam. Monofilament foot exam completed. loss of protective senses. Treated with Gabapentin Personally reviewed CMP eGFR- 23 Kidney function- abnormal Urine microalbumin/creatinine ratio - not at goal <30 treated with amlodipine, lisinopril B/P today- at goal of <140/90. continue amlodipine, lisinopril Personally reviewed lipid panel. Not at Goal of less than 70. Continue atorvastatin Assessment & Plan (01/06/2023 3:11 PM CDT): This is a chronic condition which is poorly controlled inadequately controlled or out of control improving worsening not at goal of less than 7%. Personally reviewed most recent A1c - Lab Results Component Value Date HGBA1C 10.6 01/06/2023 Personally reviewed POC blood sugar- not at goal 80-180 Lab Results Component Value Date POCGLU 211 01/06/2023 Medication- Start xultophy 30 units daily on wednesday, continue humalog U200 10 units prior to meals- If blood sugar >200-take 12 units, if >250 take 14 units, if > 300-take 16 units, if >350- take 18 units, if >400 take 20 units. Total daily dose 60 units. She did not tolerate Ozempic it caused her to be sick Monitor blood sugar continuously with freestyle yesi [address] sensor. Check blood sugars 4 times a day as per sensor. And call blood sugars on Wednesday for further titration. I explained the importance of getting these blood sugars down so that we can get this wound healed. Encouraged annual eye exam. Monofilament foot exam completed. loss of protective senses. Personally reviewed CMP eGFR- 21 Kidney function- abnormal Urine microalbumin/creatinine ratio - not at goal <30 treated with lisinopril, amlodipine B/P today- at goal of <140/90. continue lisinopril, amlodipine Personally reviewed lipid panel. Not at Goal of less than 70. Continue atorvastatin Assessment & Plan (07/07/2022 4:57 PM CDT): This is a chronic condition which is poorly controlled, improving not at goal of less than 7%. Personally reviewed most recent A1c - Lab Results Component Value Date HGBA1C 9.5 07/07/2022 Personally reviewed POC blood sugar- at goal 80-180 Lab Results Component Value Date POCGLU 186 07/07/2022 Medication- Continue stop tresiba. Start xultophy 30 units daily in am, continue humalog U200 10 units prior to meals- If blood sugar >200-take 12 units, if >250 take 14 units, if > 300-take 16 units, if >350- take 18 units, if >400 take 20 units. Total daily dose 60 units. She did not tolerate Ozempic it caused her to be sick Monitor blood sugar continuously with freestyle yesi 2 sensor. Encouraged annual eye exam. Monofilament foot exam completed. loss of protective senses. Urine microalbumin/creatinine ratio - not at goal <30 treated with lisinopril and amlodipine Personally reviewed CMP eGFR- 35 Kidney function-abnormal B/P today- at goal of <140/90. continue lisinopril and amlodipine. Personally reviewed lipid panel. Not at Goal of less than 70. Continue atorvastatin Assessment & Plan (03/31/2022 3:46 PM TUB WASHER): This is a chronic condition which is out of control, worsening not at goal of less than 7%. Personally reviewed most recent A1c - Lab Results Component Value Date HGBA1C 12.1 03/18/2022 Personally reviewed POC blood sugar- Lab Results Component Value Date POCGLU 96 03/31/2022 not at goal 80-180 Medication-continue tresiba 42 units daily, humalog U200 10 units prior to meals- If blood sugar >200-take 12 units, if >250 take 14 units, if > 300-take 16 units, if >350- take 18 units, if >400 take 20 units. Total daily dose 60 units. E11.65 She did not tolerate Ozempic it caused her to be sick Monitor blood sugar continuously with freestyle Yesi 2 sensor. Encouraged annual eye exam. Monofilament foot exam completed. loss of protective senses. Open wound on right foot. Multiple amputated toes. History of osteomyelitis in foot Seen at [facility] Urine microalbumin/creatinine ratio - Pending. goal <30 treated with lisinopril. Continue to see Dr. White for nephrology at [facility] Personally reviewed CMP GFR- 35 Kidney function- abnormal Continue to see Dr. White for nephrology at [facility] B/P today- at goal of <140/90. continue amlodipine, lisinopril Personally reviewed lipid panel. Not at Goal of less than 70. Continue atorvastatin Ambulatory referral to [facility] environmental educator/nutritional counseling- has appointment in 2 weeks Continuous glucose monitor (cgm) applied from03/18/2022 to 03/31/2022. This device was placed for monitor and treatment of blood sugar. Interpretation of data- improving blood sugars. With persisting hyperglycemia. Average blood sugar 186. In target 49%. Discussed the importance of keeping her blood sugar below 150. Encouraged her to get into target range 70% of the time. Assessment & Plan (03/18/2022 3:22 PM TUB WASHER): This is a chronic condition which is out of control, worsening not at goal of less than 7%. Personally reviewed most recent A1c - Lab Results Component Value Date HGBA1C 12.1 03/18/2022 Personally reviewed POC blood sugar- Lab Results Component Value Date POCGLU 329 03/18/2022 not at goal 80-180 Medication- tresiba 42 units daily, humalog U200 10 units prior to meals- If blood sugar >200-take 12 units, if >250 take 14 units, if > 300-take 16 units, if >350- take 18 units, if >400 take 20 units. Total daily dose 60 units. E11.65 She did not tolerate Ozempic it caused her to be sick Monitor blood sugar 4 times a day. Continuously with Rebtelyle Yesi 2 sensor. Encouraged annual eye exam. Monofilament foot exam completed. loss of protective senses. Open wound on right foot. Multiple amputated toes. History of osteomyelitis in foot Seen at [facility] Urine microalbumin/creatinine ratio - Pending. goal <30 treated with lisinopril. Continue to see Dr. White for nephrology at [facility] Personally reviewed CMP GFR- 35 Kidney function- abnormal Continue to see Dr. White for nephrology at [facility] B/P today- at goal of <140/90. continue amlodipine, lisinopril Personally reviewed lipid panel. Not at Goal of less than 70. Continue atorvastatin Ambulatory referral to [facility] environmental educator/nutritional counseling Assessment & Plan (04/13/2017 1:51 PM TUB WASHER): Being more consistent with carb intake and using specific insulin plan now. Will not recommend any changes today as hypoglycemia is stable now and control is complicated by hyperbaric treatment and now potential for abdominal issues. Send in sugars weekly so that trends can be evaluated and insulin adjusted. Follow up 2 months. Assessment & Plan (02/24/2017 4:02 PM TUB WASHER): A1c 8.9. Without specific BG to evaluate it is difficult to adjust insulin. Appropriate treatment of hypoglycemia reviewed so as not to over treat. Will adjust and add ssi in one week after reviewing log. Provided with following instructions.: Reduce N at supper to 60 units. You should not have any overnight lows and if you do, we need to further reduce this. Take R at breakfast 30 units and 35 at lunch and dinner Check your sugar at bedtime. If it's below 130 then have a small snack-1/2 sandwich. Meals should be 45-60 grams of carb per meal (45) Focus on consistent carb amount at every meal. Follow up with associate director regulatory affairs as scheduled Avoid juice. Essential hypertension 01/11/2013 Overview (06/18/2016): HYPERTENSION NOS Assessment & Plan (02/17/2023 3:45 PM TUB WASHER): This is a chronic condition which is at goal of LDL less than 70 Continue amlodipine, lisinopril Encouraged to eat healthy, include fresh fruits and vegetables daily and avoid eating fried foods more than once per week. Encouraged to take medications as prescribed. Assessment & Plan (01/06/2023 3:10 PM CDT): This is a chronic condition which is at goal of less than 140/90 Personally reviewed labs. Continue lisinopril amlodipine Encouraged to monitor weight and B/P at home Encouraged to take medications as prescribed. Assessment & Plan (04/13/2017 1:55 PM TUB WASHER): Controlled on current medications. Assessment & Plan (02/24/2017 3:58 PM TUB WASHER): Controlled on current medications. Pure hypercholesterolemia 01/11/2013 Overview (06/18/2016): PURE HYPERCHOLESTEROLEM Assessment & Plan (04/13/2017 1:55 PM TUB WASHER): Check lipid panel next OV Assessment & Plan (02/24/2017 3:58 PM TUB WASHER): Continue statin. Check labs next OV Resolved Problems Problem Noted Date Diagnosed Date Resolved Date Type II diabetes mellitus uncontrolled 09/10/2014 03/18/2022 Overview (06/18/2016): Type II diabetes mellitus uncontrolled Diabetic neuropathy 09/10/2014 03/18/19 Overview (06/18/2016): Diabetic neuropathy Immunizations Name Administration Dates Next Due Influenza, Quadrivalent, Spl it, Preservative Free, Intradermal 05/31/2015 Influenza, Quadrivalent, Spl it, Preservative Free, Intramuscular 01/27/2017,01/21/2017 Social History Tobacco Use Types Packs/Day Years Used Date Smoking Tobacco: Former Cigarettes Q uit: 07/23/2006 Smokeless Tobacco: Never Tobacco Cessation:Counseling Given: Not Answered Alcohol Use Standard Drinks/Week Comments Yes 0 (1 standard drink = 0.6 oz pur e alcohol) [facility] IPGities Answer Date Recorded In the past 12 months has e electric, gas, oil, or water company threatened to shut off services in your home? No 07/27/2023 Social Connection and Isolat ion Panel [NHANES] Answer Date Recorded In a typical week, how many times do you talk on the phone with family, friends, or neighbors? More than three times a week 07/27/2023 How often do you get togethe r with friends or relatives? Three times a week 07/27/2023 How often do you attend chur ch or mandaeism services? Never 07/27/2023 Do you belong to any clubs o r organizations such as mormonism groups, unions, fraternal or athletic groups, or school groups? No 07/27/2023 How often do you attend meet ings of the clubs or organizations you belong to? Never 07/27/2023 Are you , , di vorced, , never , or living with a partner? 07/27/2023 AUDIT-C Answer Date Recorded Q1: How often do you have a drink containing alc ohol? Never 08/25/2023 Average Number of Drinks Not on file 024 Frequency of Binge Drinking Not on file 08/13 Overall Financial Resource Strain (CARDIA) Answe r Date Recorded How hard is it for you to pa y for the very basics like food, housing, medical care, and heating? Not very hard 07/27/2023 PHQ-2 Answer Date Recorded PHQ-2 Total Score (If total score is 3 or more points, staff should administer the PHQ-9) 0 08/05/2023 Hunger Vital Sign Answer Date Recorded Within the past 12 months, y ou worried that your food would run out before you got the money to buy more. Never true 07/27/19 24 Within the past 12 months, t he food you bought just didn't last and you didn't have money to get more. Never true 07/27/2023 PRAPARE - Transportation Answer Date Re corded In the past 12 months, has l ack of transportation kept you from medical appointments or from getting medications? No 07/13 In the past 12 months, has l ack of transportation kept you from meetings, work, or from getting things needed for daily living? No 07/27/2023 Housing Stability Vital Sign Answer Tyshawn e Recorded In the last 12 months, was t here a time when you were not able to pay the mortgage or rent on time? No 07/27/2023 In the last 12 months, how many places have you lived? 1 07/27/2023 In the last 12 months, was t here a time when you did not have a steady place to sleep or slept in a assisted (including now)? No 07/27/2023 Personal Safety Answer Date Recorded Have you ever been in or are you currently in a harmful physical or emotional relationship or is someone making you feel afraid or unsafe? Denies 07/26/2023 Comments No Sex and Gender Information Value Date Recorded Sex Assigned at Not on file Legal Sex Female 11:59 PM TUB WASHER Gender Identity Not on file Sexual Orientation Not on file Last Filed Vital Signs Vital Sign Reading Time Taken Comments Blood Pressure 141/93 09/24/2023 1:27 PM CDT Pulse 93 09/24/2023 1:27 PM CDT Temperature 36.2 ??C (97.1 ??F) 09/01/2023 1 1:59 AM CDT Respiratory Rate 18 09/24/2023 1:27 PM CDT Oxygen Saturation 97% 09/01/2023 11: 59 AM CDT Inhaled Oxygen Concentration - - Weight 121.6 kg (268 lb) 09/24/2023 1:2 7 PM CDT verbal, unable to stand for weight Height 177.8 cm (5' 10 ) 09/24/2023 1:2 7 PM CDT Body Mass Index 38.45 09/24/2023 1:27 PM CDT Plan of Treatment Not on file Medical Devices Implanted Type Area Leather Belt Maker Device Identifier Shelf Expiration Date Model / Serial / Lot [employer] Gautamnxgrip 6-7fr Balloon Catheter Integrate Sealant Lock Latex Free [id number] - [id number] Implanted:Qty: 1 on 01/07/2023 by Hernando Narayanan MD at [facility] [place] 10/12/2024 [id number] / / [id number] Procedures Procedure Name Priority Date/Time Associated Diagnosis Comments EGFR Routine 08/05/2023 6:11 AM CDT DIABETIC EYE EXAM Routine 01/14/2023 POCT HEMOGLOBIN A1C Routine 01/06/2023 2 :37 PM CDT Type 2 diabetes mellitus with hyperglycemia, with long-term current use of insulin ([facility]) ([facility]) LIPID PANEL Routine 03/18/2022 10:11 AM TUB WASHER Uncontrolled type 2 diabetes mellitus with hyperglycemia, with long-term current use of insulin ([facility]) ALBUMIN CREATININE RATIO, URINE Routine 03/18/2022 10:11 AM TUB WASHER Uncontrolled type 2 diabetes mellitus with hyperglycemia, with long-term current use of insulin ([facility]) from Last 3 Months or Most Recently Relevant to Health Maintenance Results * (ABNORMAL) eGFR (08/05/2023 6:11 AM CDT) eGFR 40(L) >=60 mL/min/1. 73 m2 Comment: Interpretive Data Reference Interval Normal ?>/= 90 mL/min/1.73m2 Mildly decreased* ? 60 - 89 mL/min/1.73m2 Mildly to moderately decreased ?45 - 59 mL/min/1.73m2 Moderately to severely decreased ??30 - 44 mL/min/1.73m2 Severely decreased ?15 - 29 mL/min/1.73m2 Kidney Failure ?< 15 ??mL/min/1.73m2 *Relative to young adult level Estimated glomerular filtration rate is determined by the 2020 CKD-EPI equation recommended by the National Kidney Foundation (A Unifying Approach to GFR Estimation: Recommendations of the NKF-ASK Task Force on Reassessing the Inclusion of Race in Diagnosing Kidney Disease, JASN 2020). The CKD-EPI equation should not be used for patients with unstable renal function and has not been validated in children and those over 70. Current interpretive data was last reviewed 2021. Blood 08/05/2023 6:11 AM CDT 08/05/2023 6:32 AM CDT Amos Prajapati MD LAB BLOOD ORDERABLES Final Resu lt [facility] ([place]) [address] [facility] Department of Laboratories [place], [place] [id number] * (ABNORMAL) Diabetic Eye Exam (01/14/2023) Historical Provider HEALTH MAINTENANCE Final Result * (ABNORMAL) POCT hemoglobin A1c (01/06/2023 2:37 PM CDT) Hemoglobin A1C, POC 10.6 % Blood 01/06/2023 2:37 PM CDT Yasemin Gunn NP POINT OF CARE TEST ORDERABLES F inal Result * (ABNORMAL) Albumin Creatinine Ratio, Urine (03/18/2022 10:11 AM TUB WASHER) Albumin Ur 2,136.5 mg/L [facility] ([place]) Comment: Interpretive Data No reference range established. Current interpretive data was last revised 2018. Testing performed by: [facility], [address] [place] [address]., [id number] Creatinine Ur 41.1 mg/dL [facility] ([place]) Comment: Interpretive Data No reference range established. Current interpretive data was last revised 2018. Testing performed by: [facility], [address] [place] [address]., [id number] Albumin Creatinine Ratio, Ur 5,198(H) 1 - 29 mg/g [facility] ([place]) Comment:Testing performed by : [facility], [address] [place] [address]., [id number] Urine 03/18/2022 10:1 1 AM TUB WASHER 03/18/2022 9:27 PM TUB WASHER us Yasemin Gunn NP LAB URINE ORDERABLES Final Resu lt [facility] ([place]) [address] [facility] Department [place] [address] * (ABNORMAL) Lipid panel (03/18/2022 10:11 AM TUB WASHER) Cholesterol 243(H) 30 - 199 mg/dL [facility] ([place]) Comment: Interpretive Data Ages < or = 19 years ??Acceptable: ? <170 mg/dL ??Borderline high: ??170-199 mg/dL ??High: ? >or= 200 mg/dL Ages > or = 20 years ??Desirable: ?<200 mg/dL ??Borderline high: ??200-239 mg/dL ??High: ? >or= 240 mg/dL Literature References: 1. Expert Panel on Integrated Guidelines for Cardiovascular Health and Risk Reduction in Children and Adolescents. Pediatrics 2011;128:S213 2. NCEP Expert Panel. Circulation 2004;110:227 Current Interpretive Data was last revised on 2017. Triglycerides 164(H) <=149 mg/dL [facility] ([place]) Comment: Interpretive Data Ages < or = 9 years ??Acceptable: ? <75 mg/dL ??Borderline high: ??75-99 mg/dL ??High: ? >or= 100 mg/dL Ages 10 to 20 years ??Acceptable: ? <90 mg/dL ??Borderline high: ??90-129 mg/dL ??High: ? >or= 130 mg/dL Ages > or = 20 years ??Desirable: ?<150 mg/dL ??Borderline high: ??150-199 mg/dL ??High: ? 200-499 mg/dL ?Very high: ?? >or= 499 mg/dL Literature References: 1. Expert Panel on Integrated Guidelines for Cardiovascular Health and Risk Reduction in Children and Adolescents. Pediatrics 2011;128:S213 2. NCEP Expert Panel. Circulation 2004;110:227 Current Interpretive Data was last revised on 2017. HDL 42 >=40 mg/dL [facility]) Comment: Interpretive Data Ages < or = 19 years ??Acceptable: ? >45 mg/dL ??Borderline low: ?? 40-45 mg/dL ??Low: ? <40 mg/dL Ages > or = 20 years ??Desirable: ?>or= 60 mg/dL ??Low: ? <40 mg/dL Literature References: 1. Expert Panel on Integrated Guidelines for Cardiovascular Health and Risk Reduction in Children and Adolescents. Pediatrics 2011;128:S213 2. NCEP Expert Panel. Circulation 2004;110:227 Current Interpretive Data was last revised on 2017. LDL, calculated 168(H) <=129 mg/dL [facility] ([place]) Comment: Interpretive Data Ages < or = 19 years ??Acceptable: ? <110 mg/dL ??Borderline high: ??110-129 mg/dL ??High: ?>or= 130 mg/dL Ages > or = 20 years ??Optimal: ? <100 mg/dL ??Near optimal: ?100-129 mg/dL ??Borderline high: ?? 130-159 mg/dL ??High: ?>160 mg/dL Literature References: 1. Expert Panel on Integrated Guidelines for Cardiovascular Health and Risk Reduction in Children and Adolescents. Pediatrics 2011;128:S213 2. NCEP Expert Panel. Circulation 2004;110:227 Current Interpretive Data was last revised on 2017. Non-HDL Cholesterol 201 mg/dL [facility] ([place]) Comment: Interpretive Data Ages < or = 19 years ??Acceptable: ?<120 mg/dL ??Borderline high: ??120-144 mg/dL ??High: ?>145 mg/dL Ages > or = 20 years ??When triglycerides are >200 mg/dL, Non-HDL cholesterol is a secondary target of ? therapy with treatment goals that are 30 mg/dL greater than the LDL cholesterol target. ? Literature References: 1. Expert Panel on Integrated Guidelines for Cardiovascular Health and Risk Reduction in Children and Adolescents. Pediatrics 2011;128:S213 2. NCEP Expert Panel. Circulation 2004;110:227 Current Interpretive Data was last revised on 2017. Chol/HDL ratio 6 [facility] ([place]) Blood 03/18/2022 10:1 1 AM TUB WASHER 03/18/2022 1:33 PM TUB WASHER Narrative [facility] ([place]) - 03/18/2022 2:08 PM TUB WASHER These lab test should be done fasting. This means do not eat or drink for at least 12 hours prior to getting your blood drawn. us Yasemin Gunn NP LAB BLOOD ORDERABLES Final Resu lt [facility] ([place]) [address] [facility] Department [place] [address] from Last 3 Months or Most Recently Relevant to Health Maintenance Insurance MEDICARE SOLUTIONS [facility] REF MEDICARE SOLUTIONS MEDICARE * Guarantor: [facility] Account Type Relation to Patient Date of Phone Billing Address Donor Other MEDICARE Advance Directives For more information, please contact: [phone] * Full Code (Latest Code Status on File) Date Activated Date Inactivated Comments 07/27/2023 11:44 AM 08/05/2023 7:27 PM * Full Code Date Activated Date Inactivated Comments 01/07/2023 12:31 PM 01/07/2023 8:21 PM * Full Code Date Activated Date Inactivated Comments 10/31/2021 1:18 PM 10/31/2021 6:49 PM * Full Code Date Activated Date Inactivated Comments 04/28/2019 11:36 AM 04/28/2019 7:08 PM Care Teams Dinkey Operator Slate Relationship Specialty Start Date End Date Teressa De Jesus PA [address] [place] [id number] PCP - General Physician Power Electronics Engineer 01/30/22 Teressa De Jesus PA [address] [place] [id number] Physician Power Electronics Engineer 01/30/22 Hien Amato DPM [address] [place] [id number] Consulting Physician Foot and Ankle Surg 09/28/19
--- OUTSIDE RECORDS SUMMARY | 2024-04-07 16:21 | XMS_ITS | Encounter Summary ---
Author Organization [facility] Healthcare Address [address] [place] [address] Care Team Providers Care Vendor Analyst Name Role Phone Teressa De Jesus Primary Care Provider [phone] Teressa De Jesus Unavailable [phone] Hien Amato DPM Unavailable [phone] Encounter Details Date Type Department Care Team (Late st Contact Info) Description 05/01/2022 Telephone [facility] [address] [place] [address] Tosin Fierro RN Social History Tobacco Use Types Packs/Day Years Used Date Smoking Tobacco: Former Cigarettes Q uit: 07/23/2006 Smokeless Tobacco: Never Alcohol Use Standard Drinks/Week Comments Yes 0 (1 standard drink = 0.6 oz pur e alcohol) AUDIT-C Answer Date Recorded Frequency of Alcohol Consumption Not on file 10/24/2021 Q2: How many drinks containi ng alcohol do you have on a typical day when you are drinking? 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 Gender Identity Not on file Sexual Orientation Not on file documented as of this encounter Plan of Treatment Not on file documented as of this encounter Visit Diagnoses Not on filedocumented in this encounter Additional Health Concerns Infection Onset Date Last Indicated Resolved Time MDR gram neg/ESBL 10/31/2021 07/23/2022 07/28/2023 8:05 AM CDT documented as of this encounter Care Teams Vendor Analyst Relationship Specialty Start Date End Date Teressa De Jesus PA [address] [place] [address] PCP - General Physician Senior Professional Services Consultant 01/30/22 Teressa De Jesus PA [facility] [place] [address] Physician Senior Professional Services Consultant 01/30/22 Hien Amato DPM [address] [place] [id number] Consulting Physician Foot and Ankle Surg 09/28/19 documented as of this encounter
--- OUTSIDE RECORDS SUMMARY | 2024-04-07 16:21 | XMS_ITS | Clinical Summary ---
Author Organization [facility] Medical Office Building [address] Address [address] [place] [address] Care Team Providers Care Independent Video Producer Name Role Phone Teressa De Jesus Primary Care Provider [phone] Teressa De Jesus Unavailable [phone] Hien Amato DPM Unavailable [phone] Allergies Active Allergy Reactions Criticality Noted Date Comments Semaglutide Nausea & Vomiting Low 03/18/2022 Ykrnxnp-Tdk-Cpz Reductase Inhibitors Muscle pain Medium 09/03/2020 Medications [...] (three) times a day as needed 01/20/20 22 Active insulin lispro (HumaLOG) 200 unit/mL (3 mL) pen for injection Inject 0.05 mL (10 Units total) under the skin 3 (three) times a day before meals If blood sugar >200-take 12 units, if >250 take 14 units, if > 300-take 16 units, if >350- take 18 units, if >400 take 20 units. Total daily dose 60 units. E11.65 30 mL 5 03/18/19 Active levothyroxine (SYNTHROID) 125 mcg tabletIndications: Acquired hypothyroidism Take 1 tablet (125 mcg total) by mouth manufacturer before breakfast 90 tablet 3 12/17/19 Active cholecalciferol (VITAMIN D-3) 50,000 unit capsule TAKE ONE CAPSULE BY MOUTH EVERY WEEK WITH A MEAL Active clopidogreL (PLAVIX) 75 mg tablet Take 1 tablet (75 mg total) by mouth daily 30 tablet 11 01/09/20 Active Baqsimi 3 mg/actuation spray,non-aerosolI ndications:patient with diabetes mellitus at risk of hypoglycemia Administer 1 spray into one nostril as needed (use for severe hypoglycemia requiring the assistance of another.) E11.65 2 each 02/18/20 Active Additional Information Patient not taking.Reported on [...] ( onetouch verio strips) e11.65 300 each 11 01/28/20 Active blood-glucose meter (OneTouch Verio Flex Start) kitIndications:Typ e 2 diabetes mellitus with hyperglycemia, with long-term current use of insulin (HCC) Use to test blood sugars 3 times a day ( onetouch verio meter) e11.65 1 kit 01/28/20 Active apixaban (Eliquis) 5 mg tablet Take 1 tablet (5 mg total) by mouth 2 (two) times a day 60 tablet 03/10/20 025 Active Eliquis 5 mg tablet TAKE 1 TABLET(5 MG) BY MOUTH TWICE DAILY 60 tablet 06/09/19 024 Discontin ued(Reord er) Active Problems Problem Noted Date Diagnosed Date Acute cystitis without hematuria 07/29/2023 Anemia of chronic disease 07/29/2023 Stage 3b chronic kidney disease 07/29/2023 GERD (gastroesophageal reflux disease) 4 Gangrene of right foot (CMS/HCC) 07/27/2023 Gangrene (CMS/HCC) 07/07/2023 Ulcer of right heel, with necrosis of muscle Ulcer of right pretibial region, with fat layer exposed 07/07/2023 Skin ulcer of popliteal mónica on, left, with fat layer exposed 07/07/2023 Diabetic foot ulcer with osteomyelitis 4 freestyle yesi 2 continuous glucose monitoring device 07/07/2022 Assessment & Plan (02/17/2023 3:44 PM [employer]): Continuous glucose monitor (cgm) applied from 02/04/2023 [...] T4 Assessment & Plan (03/31/2022 3:47 PM [employer]): This is a chronic condition which is [...] 8weeks, Assessment & Plan (03/18/2022 3:34 PM [employer]): This is a chronic condition which is [...] disease invo lving coronary bypass graft of [place] tribe heart without angina pectoris 11/12/2021 Ulcer of toe of right foot, with necrosis of mus kendell 10/10/2021 Overview (10/10/2021): Added automatically from request for surgery [id number] Acute osteomyelitis of right ankle or foot 10/10 Overview (10/10/2021): Added automatically from request for surgery [id number] Acute diastolic congestive heart failure (CMS/HC C) 07/23/2021 On continuous oral anticoagulation 02/12/2021 Diabetic polyneuropathy asso ciated with type 2 diabetes mellitus (CMS/FORM[facility]) 09/27/2019 Overview (09/27/2019): Added automatically from request for surgery [id number] Persistent atrial fibrillation 03/29/2019 Hx of CABG 03/29/2019 Stem cell donor 03/22/2019 Class 1 obesity due to exces s calories with serious comorbidity and body mass index (BMI) of 34.0 to 34.9 in adult 02/24/2017 Assessment & Plan (02/17/2023 3:43 PM [employer]): This is a chronic condition which has [...] ordered Assessment & Plan (03/31/2022 3:47 PM [employer]): This is a chronic condition which is improving 6 lb weight loss since last office visit Encourage continuing weight loss Has appointment to see dietitian in the next 2 weeks Assessment & Plan (03/18/2022 3:35 PM [employer]): This is a chronic condition which is improving Encourage continue weight loss Follow with special education paraeducator/nutritional counseling Assessment & Plan (04/13/2017 1:54 PM [employer]EE): Continue to follow plan per Rd. Exercise limited Assessment & Plan (02/24/2017 3:58 PM [employer]OYEE): Current BMI includes ortho boot therefor not reliable. Agree with follow up with RD Proteinuria 09/10/2014 Overview (06/18/2016): Proteinuria Former smoker 09/10/2014 Overview (06/18/2016): Former smoker Coronary artery disease invo lving [place] coronary artery of [place] tribe heart without angina pectoris 09/10/2014 Overview (06/18/2016): CAD - Coronary artery disease Type 2 diabetes mellitus wit h hyperglycemia, with long-term current use of insulin 06/07/2013 Overview (06/18/2016): DMII WO CMP UNCNTRLD Assessment & Plan (02/17/2023 3:43 PM [employer]): This is a chronic condition which is [...] atorvastatin Assessment & Plan (03/31/2022 3:46 PM [employer]): This is a chronic condition which is [...] History of osteomyelitis in foot Seen at [facility] Urine microalbumin/creatinine ratio - Pending. goal <30 treated with lisinopril. Continue to see Dr. White for nephrology at [facility] Personally reviewed CMP GFR- 35 Kidney function- abnormal Continue to see Dr. White for nephrology at [facility] B/P today- at goal of <140/90. continue amlodipine, lisinopril Personally reviewed lipid panel. Not at Goal of less than 70. Continue atorvastatin Ambulatory referral to [facility] special education paraeducator/nutritional counseling- has appointment in 2 weeks Continuous [...] time. Assessment & Plan (03/18/2022 3:22 PM [employer]): This is a chronic condition which is [...] sugar 4 times a day. Continuously with freestyle Yesi 2 sensor. Encouraged annual eye exam. Monofilament foot exam completed. loss of protective senses. Open wound on right foot. Multiple amputated toes. History of osteomyelitis in foot Seen at [facility] Urine microalbumin/creatinine ratio - Pending. goal <30 treated with lisinopril. Continue to see Dr. White for nephrology at [facility] Personally reviewed CMP GFR- 35 Kidney function- abnormal Continue to see Dr. White for nephrology at [facility] B/P today- at goal of <140/90. continue amlodipine, lisinopril Personally reviewed lipid panel. Not at Goal of less than 70. Continue atorvastatin Ambulatory referral to [facility] special education paraeducator/nutritional counseling Assessment & Plan (04/13/2017 1:51 PM [employer]): Being more consistent with carb intake and using specific insulin plan now. Will not recommend any changes today as hypoglycemia is stable now and control is complicated by hyperbaric treatment and now potential for abdominal issues. Send in sugars weekly so that trends can be evaluated and insulin adjusted. Follow up 2 months. Assessment & Plan (02/24/2017 4:02 PM [employer]): A1c 8.9. Without specific BG to evaluate [...] amount at every meal. Follow up with md do resident urgent care as scheduled Avoid juice. Essential hypertension 01/11/2013 Overview (06/18/2016): HYPERTENSION NOS Assessment & Plan (02/17/2023 3:45 PM [employer]): This is a chronic condition which is [...] prescribed. Assessment & Plan (04/13/2017 1:55 PM [employer]EE): Controlled on current medications. Assessment & Plan (02/24/2017 3:58 PM [employer]EE): Controlled on current medications. Pure hypercholesterolemia 01/11/2013 Overview (06/18/2016): PURE HYPERCHOLESTEROLEM Assessment & Plan (04/13/2017 1:55 PM [employer]EE): Check lipid panel next OV Assessment & Plan (02/24/2017 3:58 PM [employer]OYEE): Continue statin. Check labs next OV Resolved Problems Problem Noted Date Diagnosed Date Resolved Date Type II diabetes mellitus uncontrolled 09/10/2014 03/18/2022 Overview (06/18/2016): Type II diabetes mellitus uncontrolled Diabetic neuropathy 09/10/2014 03/18/19 Overview (06/18/2016): Diabetic neuropathy Encounters Date Type Department Care Team Description 03/13/2024 Telephone [facility] Diabetes Endocrine Care at [address] [phone] Yasemin Gunn NP 02/29/2024 Orders Only [facility] Diabetes Endocrine Care at [address] [phone] Yasemin Gunn, ECHO Type 2 diabetes mellitus with hyperglycemia, with long-term current use of insulin (HCC) (Primary Dx) 02/29/2024 Telephone [facility] Diabetes Endocrine Care at [address] [phone] Yasemin Gunn NP 01/28/2024 Telephone [facility] Diabetes Endocrine Care at [address] [phone] Yasemin Gunn NP 01/12/2024 Telephone [facility] Diabetes Endocrine Care at [address] [place] [phone] Yasemin Gunn NP from Last 3 Months Immunizations Name Administration Dates Next Due Influenza, Quadrivalent, Spl it, Preservative Free, Intradermal 05/31/2015 Influenza, Quadrivalent, Spl it, Preservative Free, Intramuscular 01/27/2017,01/21/2017 Surgical History Surgery Date Site/Laterality Comments CORONARY ARTERY BYPASS GRAFT 03/15/2006 - 03/14/2007 CABG 3 vessel OTHER SURGICAL HISTORY 03/15/2010 - 03/14/2011 Left Rotator cuff tear (left): Rotator cuff repair CATARACT EXTRACTION 03/15/2010 - 03/14/2011 Cataract extraction OTHER SURGICAL HISTORY 04/09/2017 Bilateral Bilateral myringotomy with tubes CENTRAL LINE PLACEMENT > 5 YEARS 04/28/2019 N/A CYST REMOVAL cyst removed from ovary BELOW KNEE LEG AMPUTATION 07/27/2023 Right Medical History Medical History Date Comments Hyperlipidemia Hyperlipidemia Hypertension Hypertension Diabetes mellitus (HCC) diabetes mellitus Adiposity obesity Hx Other Medical 2011 Rotator cuff te ar (left); Outcome: improved Depression Depression Hx Other Medical Claustrophobic; Comments: [facility] 11/08/2013 - Chronic coronary artery disease Coronary artery disease Ear problems Motion sickness Type 2 diabetes mellitus (HCC) Arrhythmia Atrial Fibrillat ion GERD (gastroesophageal reflu x disease) Type II diabetes mellitus uncontrolled 09/10/2014 Type II diabetes mellitus uncontrolled Diabetic neuropathy (HCC) 09/10/2014 Diabet ic neuropathy Chronic kidney disease Family History Medical History Relation Name Comments Heart disease Father Cancer Other Diabetes type II Other Family hist ory of Diabetes -Type II; Cancer Sister Relation Name Status Comments Father Mother Other Alive Sister Social History Tobacco Use Types Packs/Day Years Used Date Smoking Tobacco: Former Cigarettes Q uit: 07/23/2006 Smokeless Tobacco: Never Tobacco Cessation:Counseling Given: Not Answered Alcohol Use Standard Drinks/Week Comments Yes 0 (1 standard drink = 0.6 oz pur e alcohol) [facility] Utilities Answer Date Recorded In the past 12 months has e [place], gas, oil, or water company threatened to [...] often do you attend chur ch or zoroastrian services? Never 07/27/2023 Do you belong to any clubs o r organizations such as sikh groups, unions, fraternal or athletic groups, or [...] place to sleep or slept in a correction (including now)? No 07/27/2023 Personal Safety Answer Date Recorded Have you ever been in or are you currently in a harmful physical or emotional relationship or is someone making you feel afraid or unsafe? Denies 07/26/2023 Comments No Sex and Gender Information Value Date Recorded Sex Assigned at Not on file Legal Sex Female 11:59 PM [employer] EM[employer]OY[employer] Gender Identity Not on file Sexual Orientation Not on file Obstetrics History Last Filed Vital Signs Vital Sign Reading [...] 09/24/2023 1:27 PM CDT Plan of Treatment Health Maintenance Due Date Last Done Comments Breast Cancer Screening-Mammogram 1956 Colon Cancer Screening-Colonoscopy 1955 Hepatitis C Screening 1955 Osteoporosis Screening-Bone Density Scan 1955 DTaP/Tdap/Td Vaccine (1 - Tdap) 09/09/1967 Hepatitis B Screening 1974 Zoster Vaccine (1 of 2) 2006 Pneumococcal vaccine 65+ (2 of 2 - PPSV23 or PCV20) 02/08/2020 12/14/2019, 12/14/2019 Well Visit 65+ 2021 Albumin Creatinine Ratio, Urine 03/18/2023 Lipid Panel 03/18/2023 03/18/2022, 03/15, 08/05/2015 Hemoglobin A1C 07/08/2023 01/06/2023, 06/14, 03/18/2022, Additional history exists Covid-19 Vaccine (2023- 5 season) 2023 01/06/2021, 06/25/2020, 06/19/2020, Additional history exists Influenza Vaccine (#1) 2023 , 01/27/2017, 01/21/2017, Additional history exists Dilated Eye Exam 01/15/2024 01/14/2023, 10/2017, 01/20/2018 Foot Exam 02/18/2024 02/17/2023, 12/14, 07/07/2022, Additional history exists Depression Screening 07/25/2024 07/26/2023, 02/25/20 17 Fall Risk Assessment 08/04/2024 08/05/2023, 07/07/19 24 eGFR 08/04/2024 08/05/2023, 07/14, 08/03/2023, Additional history exists Medical Devices Implanted Type Area Hide Handler Device Identifier Shelf Expiration Date Model / Serial / Lot [employer] Mynxgrip 6-7fr Balloon Catheter Integrate Sealant Lock Latex Free [id number] - [id number] Implanted:Qty: 1 on 01/07/2023 by Hernando Narayanan MD at [facility] [employer] 10/12/2024 [id number] / / [id number] Procedures Procedure Name Priority Date/Time Associated Diagnosis Comments EGFR Routine 08/05/2023 6:11 AM CDT DIABETIC EYE EXAM Routine 01/14/2023 POCT HEMOGLOBIN A1C Routine 01/06/2023 2 :37 PM CDT Type 2 diabetes mellitus with hyperglycemia, with long-term current use of insulin ([facility]) ([facility]) LIPID PANEL Routine 03/18/2022 10:11 AM [employer] Uncontrolled type 2 diabetes mellitus with hyperglycemia, with long-term current use of insulin ([facility]) ALBUMIN CREATININE RATIO, URINE Routine 03/18/2022 10:11 AM [employer] Uncontrolled type 2 diabetes mellitus with hyperglycemia, with long-term current use of insulin (HCC) from Last 3 Months or Most Recently [...] 6:11 AM CDT 08/05/2023 6:32 AM CDT us Amos Prajapati MD LAB BLOOD ORDERABLES Final Resu lt [facility] [place]) 1 [facility] Department [place] [address] * (ABNORMAL) Diabetic Eye Exam (01/14/2023) us Historical Provider HEALTH MAINTENANCE Final Result * (ABNORMAL) POCT hemoglobin A1c (01/06/2023 2:37 PM CDT) Hemoglobin A1C, POC 10.6 % Blood 01/06/2023 2:37 PM CDT Yasemin Gunn SHE[employer] POINT OF CARE TEST ORDERABLES F inal Result * (ABNORMAL) Albumin Creatinine Ratio, Urine (03/18/2022 10:11 AM [employer]EE) Albumin Ur 2,136.5 mg/L [facility] ([place]) Comment: Interpretive Data No reference range established. Current interpretive data was last revised 2018. Testing performed by: [facility], [address] [place] [address]., [id number] Creatinine Ur 41.1 mg/dL [facility] ([place]) Comment: Interpretive Data No reference range established. Current interpretive data was last revised 2018. Testing performed by: [facility], [address] [place] [address]., [id number] Albumin Creatinine Ratio, Ur 5,198(H) 1 - 29 mg/g [facility] ([place]) Comment:Testing performed by : [facility], [address] [place] [address]., [id number] Urine 03/18/2022 10:1 1 AM [employer]EE 03/18/2022 9:27 PM [employer] Yasemin Gunn NP LAB URINE ORDERABLES Final Resu lt [facility] ([place]) 1 [facility] Department [place] [address] * (ABNORMAL) Lipid panel (03/18/2022 10:11 AM [employer]EE) Cholesterol 243(H) 30 - 199 mg/dL [facility] ([place]) Comment: Interpretive Data Ages < or [...] on 2017. HDL 42 >=40 mg/dL [facility] ([place]) Comment: Interpretive Data [...] [facility] ([place]) Blood 03/18/2022 10:1 1 AM [employer] EM[employer]EE 03/18/2022 1:33 PM [employer]EE Narrative [facility] ([place]) - 03/18/2022 2:08 PM [employer] These lab test should be done fasting. This means do not eat or drink for at least 12 hours prior to getting your blood drawn. us Yasemin Gunn NP LAB BLOOD ORDERABLES Final Resu lt [facility] ([place]) 1 [facility] Department [place] [address] from Last 3 Months or Most Recently Relevant to Health Maintenance Insurance MEDIC[employer] MEDICARE [facility] [place] [address] [place] [address] MEDICARE * Guarantor: [facility] Account Type Relation to Patient Date of Phone Billing Address Donor Other MEDICARE Advance Directives For more information, please contact: [phone] * Full Code (Latest Code Status on File) Date Activated Date Inactivated Comments 07/27/2023 11:44 AM 08/05/2023 7:27 PM * Full Code Date Activated Date Inactivated Comments 01/07/2023 12:31 PM 01/07/2023 8:21 PM * Full Code Date Activated Date Inactivated Comments 10/31/2021 1:18 PM 10/31/2021 6:49 PM * Full Code Date Activated Date Inactivated Comments 04/28/2019 11:36 AM 04/28/2019 7:08 PM Care Teams Independent Video Producer Relationship Specialty Start Date End Date Teressa De Jesus PA [address] [place] [id number] PCP - General Physician Direct Response Consultant 01/30/22 Teressa De Jesus PA [address] [place] [id number] Physician Direct Response Consultant 01/30/22 Hien Amato DPM [address] [place] [id number] Consulting Physician Foot and Ankle Surg 09/28/19
--- OUTSIDE RECORDS SUMMARY | 2024-04-07 16:21 | XMS_ITS ---
Author Organization [facility] ([facility]) Address [address] [place] [id number] Care Team Providers Care Case Worker Name Role Phone Unavailable Unavailable Unavailable Allergies, Adverse Reactions, Alerts Allergy Name Allergy Type Status Severity Reaction(s) Onset Date Inactive Date Treating Clinician Comments Semaglutide Allergy Active Moderate Allergy 11-29 21:30: 35 Medications Ordered Medication Name Filled Medication Name Start Date Stop Date Current Medication? Ordering Clinician Indication Dosage Frequency Signature (SIG) Comments Components Venofer 2023-03 12:59: 12 Yes [id number] Number of Repeats Allowed: Frequency: One time a weekDosesO rdered: Maintenanc e Dose 50 Milligram Route: Intravenou s Mircera 2023-03 18:58: 45 Yes [id number] Number of Repeats Allowed: Frequency: TRACY dosing, every two weeks ONS [facility] 12-08 17:38: 32 Yes [id number] Number of Repeats Allowed: Frequency: Every Dialysis Treatment Tubersol 12-08 05:00: 00 Yes [id number] Number of Repeats Allowed: Frequency: One Time Only on Admission Oxygen 11-29 22:01: 09 Yes [id number] Number of Repeats Allowed: Frequency: As needed ondansetron hydrochlori de 11-29 22:01: 03 Yes [id number] Number of Repeats Allowed: Frequency: Every 4 hours as needed Normal Saline Solution 0.9% NaCl 11-29 22:00: 36 Yes [id number] Number of Repeats Allowed: Frequency: As needed diphenhydra mine hydrochlori de 11-29 22:00: 25 Yes [id number] Number of Repeats Allowed: Frequency: Every 4 hours as needed diphenhydra mine hydrochlori de 11-29 22:00: 07 Yes [id number] Number of Repeats Allowed: Frequency: Every 4 hours as needed clonidine 11-29 21:59: 41 Yes [id number] Number of Repeats Allowed: Frequency: Every 4 hours as needed clonidine 11-29 21:59: 18 Yes [id number] Number of Repeats Allowed: Frequency: Every 4 hours as needed acetaminoph en 11-29 21:58: 49 Yes [id number] Number of Repeats Allowed: Frequency: Every 4 hours as needed Problems This patient has no known problems. Procedures Procedure Date / Time Performed Performing Clinician Lori sylvia Details Central Venous Catheter (CVC) 2023-11-26 05:00:00 Access Site Chest (Right) Access Use Start Date 2023-12-07 00:00:0 0 DIALYSIS TREATMENT INFORMATION Conventional Hemodialysis Date Type Treatment Start Date Treatment End Date Pre-Treatment Vitals Post-Treatment Vitals Weight Gain BFR DFR Actual UF Dialysis Access Novem 2023 In-Ce nter Hemod ialys is Treat ment 2024-01-29 T18:22:37. 000Z 2024-01-29 T20:45:32. 000Z BP Sitting (Pre-Dialysis) 165/89 mmHg BP Sitting (Post-D ialysis ) 170/ 99 mmHg Sitting Heart Rate Pre-Dialysis 83 BPM Sitting H eart Rate Post-Dialysis 78 BPM Temperature Pre-Dialysis 97.9 degF Temperature Post -Dialysis 97.7 degF January 27, 2024 In-Center Hemodialysis Treatment [id number]:51:15.000Z [id number]:50:50.000Z BP Sitting (Pre-Dialysis) 169/93 mmHg BP Sitting (Post-Dialysis) 188/106 mmHg Concurrent Access: falseCentral Venous Catheter (CVC) Chest (Right) Arterial Sitting Heart Rate Pre-Dialysis 87 BPM Sitting H eart Rate Post-Dialysis 76 BPM Temperature Pre-Dialysis 97.9 degF Temperature Post -Dialysis 98 degF January 25, 2024 In-Center Hemodialysis Treatment [id number]:49:34.000Z 8062-19-38W36:59:09.000Z BP Sitting (Pre-Dialysis) 155/89 mmHg BP Sitting (Post-Dialysis) 157/93 mmHg Concurrent Access: falseCentral Venous Catheter (CVC) Chest (Right) Arterial Sitting Heart Rate Pre-Dialysis 83 BPM Sitting H eart Rate Post-Dialysis 85 BPM Temperature Pre-Dialysis 97.9 degF Temperature Post -Dialysis 98 degF January 22, 2024 In-Center Hemodialysis Treatment [id number]:31:18.000Z 7411-93-75O40:46:18.000Z BP Sitting (Pre-Dialysis) 164/88 mmHg BP Sitting (Post-Dialysis) 169/89 mmHg Concurrent Access: falseCentral Venous Catheter (CVC) Chest (Right) Arterial Sitting Heart Rate Pre-Dialysis 81 BPM Sitting H eart Rate Post-Dialysis 78 BPM Temperature Pre-Dialysis 98.2 degF Temperature Post -Dialysis 98.1 degF January 20, 2024 In-Center Hemodialysis Treatment [id number]:19:43.000Z 7635-78-77B95:55:58.000Z BP Sitting (Pre-Dialysis) 154/84 mmHg BP Sitting (Post-Dialysis) 146/79 mmHg Concurrent Access: falseCentral Venous Catheter (CVC) Chest (Right) Arterial Sitting Heart Rate Pre-Dialysis 88 BPM Sitting H eart Rate Post-Dialysis 81 BPM Temperature Pre-Dialysis 97.9 degF Temperature Post -Dialysis 98 degF January 18, 2024 In-Center Hemodialysis Treatment [id number]:59:00.000Z 6985-26-08P44:40:45.000Z BP Sitting (Pre-Dialysis) 180/80 mmHg BP Sitting (Post-Dialysis) 156/101 mmHg Concurrent Access: falseCentral Venous Catheter (CVC) Chest (Right) Arterial Sitting Heart Rate Pre-Dialysis 89 BPM Sitting H eart Rate Post-Dialysis 75 BPM Temperature Pre-Dialysis 98.5 degF Temperature Post -Dialysis 98.6 degF January 15, 2024 In-Center Hemodialysis Treatment [id number]:29:33.000Z 3628-55-12G00:59:33.000Z BP Sitting (Pre-Dialysis) 177/81 mmHg BP Sitting (Post-Dialysis) 169/92 mmHg Concurrent Access: falseCentral Venous Catheter (CVC) Chest (Right) Arterial Sitting Heart Rate Pre-Dialysis 76 BPM Sitting H eart Rate Post-Dialysis 75 BPM Temperature Pre-Dialysis 98 degF Temperature Post -Dialysis 97.8 degF January 13, 2024 In-Center Hemodialysis Treatment [id number]:44:00.000Z 4043-65-00G92:34:10.000Z BP Sitting (Pre-Dialysis) 170/84 mmHg BP Sitting (Post-Dialysis) 172/80 mmHg Concurrent Access: falseCentral Venous Catheter (CVC) Chest (Right) Arterial Sitting Heart Rate Pre-Dialysis 76 BPM Sitting H eart Rate Post-Dialysis 72 BPM Temperature Pre-Dialysis 98.3 degF Temperature Post -Dialysis 97.9 degF January 11, 2024 In-Center Hemodialysis Treatment [id number]:37:00.000Z 3887-01-82V29:40:26.000Z BP Sitting (Pre-Dialysis) 177/82 mmHg BP Sitting (Post-Dialysis) 165/53 mmHg Concurrent Access: falseCentral Venous Catheter (CVC) Chest (Right) Arterial Sitting Heart Rate Pre-Dialysis 82 BPM Sitting H eart Rate Post-Dialysis 73 BPM Temperature Pre-Dialysis 97.3 degF Temperature Post -Dialysis 98.3 degF January 08, 2024 In-Center Hemodialysis Treatment [id number]:20:33.000Z [id number]:55:08.000Z BP Sitting (Pre-Dialysis) 159/84 mmHg BP Sitting (Post-Dialysis) 159/85 mmHg Concurrent Access: falseCentral Venous Catheter (CVC) Chest (Right) Arterial Sitting Heart Rate Pre-Dialysis 73 BPM Sitting H eart Rate Post-Dialysis 78 BPM Temperature Pre-Dialysis 98.2 degF Temperature Post -Dialysis 98 degF January 06, 2024 In-Center Hemodialysis Treatment 2364-10-08N46:20:00.000Z 2141-30-76V39:01:27.000Z BP Sitting (Pre-Dialysis) 150/74 mmHg BP Sitting (Post-Dialysis) 200/70 mmHg Concurrent Access: falseCentral Venous Catheter (CVC) Chest (Right) Arterial Sitting Heart Rate Pre-Dialysis 72 BPM Sitting H eart Rate Post-Dialysis 71 BPM Temperature Pre-Dialysis 98.3 degF Temperature Post -Dialysis 98 degF January 04, 2024 In-Center Hemodialysis Treatment [id number]:22:56.000Z 3587-97-56D74:46:41.000Z BP Sitting (Pre-Dialysis) 145/64 mmHg BP Sitting (Post-Dialysis) 161/95 mmHg Concurrent Access: falseCentral Venous Catheter (CVC) Chest (Right) Arterial Sitting Heart Rate Pre-Dialysis 81 BPM Sitting H eart Rate Post-Dialysis 82 BPM Temperature Pre-Dialysis 97.3 degF Temperature Post -Dialysis 97.9 degF January 01, 2024 In-Center Hemodialysis Treatment [id number]:36:00.000Z 8496-35-58K42:34:20.000Z BP Sitting (Pre-Dialysis) 162/97 mmHg BP Sitting (Post-Dialysis) 180/96 mmHg Concurrent Access: falseCentral Venous Catheter (CVC) Chest (Right) Arterial Sitting Heart Rate Pre-Dialysis 82 BPM Sitting H eart Rate Post-Dialysis 74 BPM Temperature Pre-Dialysis 98.3 degF Temperature Post -Dialysis 98.6 degF December 30, 2023 In-Center Hemodialysis Treatment [id number]:36:39.000Z 7624-35-62R87:48:44.000Z BP Sitting (Pre-Dialysis) 145/51 mmHg BP Sitting (Post-Dialysis) 156/84 mmHg Concurrent Access: falseCentral Venous Catheter (CVC) Chest (Right) Arterial Sitting Heart Rate Pre-Dialysis 91 BPM Sitting H eart Rate Post-Dialysis 92 BPM Temperature Pre-Dialysis 98.1 degF Temperature Post -Dialysis 98 degF December 28, 2023 In-Center Hemodialysis Treatment [id number]:17:34.000Z 4980-99-83H86:48:49.000Z BP Sitting (Pre-Dialysis) 160/86 mmHg BP Sitting (Post-Dialysis) 155/92 mmHg Concurrent Access: falseCentral Venous Catheter (CVC) Chest (Right) Arterial Sitting Heart Rate Pre-Dialysis 91 BPM Sitting H eart Rate Post-Dialysis 90 BPM Temperature Pre-Dialysis 98.3 degF Temperature Post -Dialysis 97.9 degF December 25, 2023 In-Center Hemodialysis Treatment [id number]:38:00.000Z [id number]:38:58.000Z BP Sitting (Pre-Dialysis) 168/89 mmHg BP Sitting (Post-Dialysis) 160/89 mmHg Concurrent Access: falseCentral Venous Catheter (CVC) Chest (Right) Arterial Sitting Heart Rate Pre-Dialysis 83 BPM Sitting H eart Rate Post-Dialysis 77 BPM Temperature Pre-Dialysis 98.1 degF Temperature Post -Dialysis 98.2 degF December 23, 2023 In-Center Hemodialysis Treatment [id number]:12:56.000Z 3254-37-94R38:42:06.000Z BP Sitting (Pre-Dialysis) 126/69 mmHg BP Sitting (Post-Dialysis) 142/83 mmHg Concurrent Access: falseCentral Venous Catheter (CVC) Chest (Right) Arterial Sitting Heart Rate Pre-Dialysis 82 BPM Sitting H eart Rate Post-Dialysis 83 BPM Temperature Pre-Dialysis 98.1 degF Temperature Post -Dialysis 98 degF December 21, 2023 In-Center Hemodialysis Treatment [id number]:33:13.000Z 3356-82-00Z62:06:08.000Z BP Sitting (Pre-Dialysis) 149/86 mmHg BP Sitting (Post-Dialysis) 156/83 mmHg Concurrent Access: falseCentral Venous Catheter (CVC) Chest (Right) Arterial Sitting Heart Rate Pre-Dialysis 83 BPM Sitting H eart Rate Post-Dialysis 82 BPM Temperature Pre-Dialysis 97.8 degF Temperature Post -Dialysis 98.3 degF December 18, 2023 In-Center Hemodialysis Treatment [id number]:04:00.000Z 0639-30-98C95:44:57.000Z BP Sitting (Pre-Dialysis) 142/74 mmHg BP Sitting (Post-Dialysis) 145/70 mmHg Concurrent Access: falseCentral Venous Catheter (CVC) Chest (Right) Arterial Sitting Heart Rate Pre-Dialysis 82 BPM Sitting H eart Rate Post-Dialysis 73 BPM Temperature Pre-Dialysis 98.1 degF Temperature Post -Dialysis 98 degF December 16, 2023 In-Center Hemodialysis Treatment [id number]:48:38.000Z 7532-86-66R18:55:18.000Z BP Sitting (Pre-Dialysis) 138/62 mmHg BP Sitting (Post-Dialysis) 159/80 mmHg Concurrent Access: falseCentral Venous Catheter (CVC) Chest (Right) Arterial Sitting Heart Rate Pre-Dialysis 81 BPM Sitting H eart Rate Post-Dialysis 82 BPM Temperature Pre-Dialysis 98.2 degF Temperature Post -Dialysis 97 degF December 14, 2023 In-Center Hemodialysis Treatment [id number]:45:42.000Z 1015-41-03M10:44:27.000Z BP Sitting (Pre-Dialysis) 167/90 mmHg BP Sitting (Post-Dialysis) 154/79 mmHg Concurrent Access: falseCentral Venous Catheter (CVC) Chest (Right) Arterial Sitting Heart Rate Pre-Dialysis 87 BPM Sitting H eart Rate Post-Dialysis 81 BPM Temperature Pre-Dialysis 98 degF Temperature Post -Dialysis 97.4 degF December 11, 2023 In-Center Hemodialysis Treatment [id number]:24:00.000Z 5349-07-74K22:54:38.000Z BP Sitting (Pre-Dialysis) 151/81 mmHg BP Sitting (Post-Dialysis) 131/103 mmHg Concurrent Access: falseCentral Venous Catheter (CVC) Chest (Right) Arterial Sitting Heart Rate Pre-Dialysis 84 BPM Sitting H eart Rate Post-Dialysis 85 BPM Temperature Pre-Dialysis 98.3 degF Temperature Post -Dialysis 97.5 degF December 09, 2023 In-Center Hemodialysis Treatment [id number]:42:00.000Z [id number]:16:15.000Z BP Sitting (Pre-Dialysis) 138/83 mmHg BP Sitting (Post-Dialysis) 158/90 mmHg Concurrent Access: falseCentral Venous Catheter (CVC) Chest (Right) Arterial Sitting Heart Rate Pre-Dialysis 86 BPM Sitting H eart Rate Post-Dialysis 82 BPM Temperature Pre-Dialysis 98 degF Temperature Post -Dialysis 97.8 degF December 07, 2023 In-Center Hemodialysis Treatment [id number]:16:07.000Z [id number]:07:47.000Z BP Sitting (Pre-Dialysis) 146/78 mmHg BP Sitting (Post-Dialysis) 125/75 mmHg Concurrent Access: falseCentral Venous Catheter (CVC) Chest (Right) Arterial Sitting Heart Rate Pre-Dialysis 87 BPM Sitting H eart Rate Post-Dialysis 77 BPM Temperature Pre-Dialysis 98 degF Temperature Post -Dialysis 97.8 degF DIALYSIS ORDER Dialysis Procedure Orders Type of Dialysis Procedure Order Order Date/Time Observations [facility] Weight 108 kg Dialysate Flow Rate 800 mL/min Blood Flow Rate 400 mL/min Treatment Time 210 min(total) Max UF Rate 13 mL/kg/hr Base Sodium Dialysate Base Sodium 138 mE q/L dialysate_temp 37 ?C BiCarb Dialysate BiCarbonate 38 meq/L Access Concurrent No Arterial Access Central Venous [facility] (CVC) (Chest (Right)) Venous Access Central Venous [facility] (CVC) (Chest (Right)) Dialyzer Nipro Elisio 15H 126 4 treatment_[email or web address] Dialysate Bath Potassium Potassium 3 mEq /L Dialysate Bath Calcium Calcium 2.5 mEq/L In-Center Hemodialysis TreatmentSeptember 2023 Observation Value Target Weight 132 kg Dialysate Flow Rate 500 mL/min Blood Flow Rate 400 mL/min Treatment Time 210 min(total) Max UF Rate 13 mL/kg/hr Base Sodium Dialysate Base Sodium 138 mE q/L dialysate_temp 37 ?C BiCarb Dialysate BiCarbonate 38 meq/L Access Concurrent No Arterial Access Central Venous [facility] (CVC) (Chest (Right)) Venous Access Central Venous [facility] (CVC) (Chest (Right)) Dialyzer Nipro Elisio 15H 126 4 [email or web address] Dialysate Bath Potassium Potassium 3 mEq /L Dialysate Bath Calcium Calcium 2.5 mEq/L Results Adequacy Description Draw Date Result/Unit Status Ref Range Result Comments Creatinine [Mass/volume] in Serum or Plasma 2024-02-08 21:37:19 1.7 mg/dL F BODY WEIGHT (LBS) 2024-02-08 21:06:03 238.9 lbs F HEIGHT IN INCHES 2024-02-08 21:06:03 66 Inches F BODY WEIGHT (LBS) 2024-02-08 21:06:03 238.9 lbs F HEIGHT IN INCHES 2024-02-08 21:06:03 66 Inches F BUN/CREAT 2024-01-28 13:32:35 F Recollect - Unsp un specimen Urea nitrogen [Mass/volume] in Serum or Plasma 2024-01-28 13:31:24 F Recollect - Unsp un specimen Creatinine [Mass/volume] in Serum or Plasma 2024-01-28 13:31:24 F Recollect - Unsp un specimen CRE CLR UR/BSA 2024-01-27 02:44:01 18 mL/min F 75.0-115.0 Creatinine [Mass/volume] in Urine 2024-01-27 02:42:31 66.43 mg/dL F BSA CHAPARRITA 2024-01-27 00:37:57 2.11 sq m F Creatinine [Mass/volume] in Serum or Plasma 2024-01-27 00:36:25 1.47 mg/dL F 0.5-1.1 Dialyzer TAMMI 2024-01-27 00:00:00 1264 Calc F stdKt/V (DIAL) 2024-01-27 00:00:00 N/A F spKt/V 2024-01-27 00:00:00 0.6 F VT (KT/V TX VOL) 2024-01-27 00:00:00 65.9 L F WEIGHT - POST DAY 1 2024-01-27 00:00:00 103.2 kg F TOTAL HOURS/WEEK DIALYSIS 2024-01-27 00:00:00 9 hrs F HEIGHT IN INCHES 2024-01-27 00:00:00 66 Inches F LENGTH OF DIALYSIS 2024-01-27 00:00:00 163 min F Std Renal KT/V 2024-01-27 00:00:00 N/A F WEIGHT (KG) 2024-01-27 00:00:00 108 kg F DIALYZER FLOW-QD 2024-01-27 00:00:00 800 mL/min F AMPUTATE FACTOR 2024-01-27 00:00:00 0 F URR% 2024-01-27 00:00:00 44 % F Total Kt/V 2024-01-27 00:00:00 0.6 F CURRENT KRU 2024-01-27 00:00:00 F Residual kt/v 2024-01-27 00:00:00 F TBW (Zuñiga) 2024-01-27 00:00:00 41.27 Liters F WEIGHT - PRE DAY 1 2024-01-27 00:00:00 103.2 kg F nPCR 2024-01-27 00:00:00 0.29 G/KG/D F PRESCRIBED DAYS/WEEK 2024-01-27 00:00:00 3 Day/Wk F KT/V PRESCRIBED 2024-01-27 00:00:00 1.36 F BSA CHAPARRITA 2024-01-27 00:00:00 2.15 sq m F stdKT/V Total 2024-01-27 00:00:00 N/A F PATIENT AGE 2024-01-27 00:00:00 68 Years F eKt/V 2024-01-27 00:00:00 0.53 F VM (KT/V MEAN VOL) 2024-01-27 00:00:00 61.7 F BLOOD FLOW-QWB 2024-01-27 00:00:00 299 F Std Renal KT/V 2024-01-27 00:00:00 N/A F spKt/V 2024-01-27 00:00:00 0.6 F KT/V PRESCRIBED 2024-01-27 00:00:00 1.36 F PRESCRIBED DAYS/WEEK 2024-01-27 00:00:00 3 Day/Wk F BSA CHAPARRITA 2024-01-27 00:00:00 2.15 sq m F CURRENT KRU 2024-01-27 00:00:00 F AMPUTATE FACTOR 2024-01-27 00:00:00 0 F BLOOD FLOW-QWB 2024-01-27 00:00:00 299 F URR% 2024-01-27 00:00:00 44 % F WEIGHT (KG) 2024-01-27 00:00:00 108 kg F stdKt/V (DIAL) 2024-01-27 00:00:00 N/A F PATIENT AGE 2024-01-27 00:00:00 68 Years F VM (KT/V MEAN VOL) 2024-01-27 00:00:00 61.7 F TOTAL HOURS/WEEK DIALYSIS 2024-01-27 00:00:00 9 hrs F eKt/V 2024-01-27 00:00:00 0.53 F stdKT/V Total 2024-01-27 00:00:00 N/A F HEIGHT IN INCHES 2024-01-27 00:00:00 66 Inches F LENGTH OF DIALYSIS 2024-01-27 00:00:00 163 min F WEIGHT - PRE DAY 1 2024-01-27 00:00:00 103.2 kg F nPCR 2024-01-27 00:00:00 0.29 G/KG/D F DIALYZER FLOW-QD 2024-01-27 00:00:00 800 mL/min F VT (KT/V TX VOL) 2024-01-27 00:00:00 65.9 L F Total Kt/V 2024-01-27 00:00:00 0.6 F WEIGHT - POST DAY 1 2024-01-27 00:00:00 103.2 kg F Dialyzer TAMMI 2024-01-27 00:00:00 1264 Calc F TBW (Zuñiga) 2024-01-27 00:00:00 41.27 Liters F Residual kt/v 2024-01-27 00:00:00 F BUN/CREAT 2024-01-26 23:59:22 see comments F 8.2-46.0 Unable to Calculate. BUN/CREAT 2024-01-26 23:59:22 see comments F 8.2-46.0 Unable to Calculate. Urea nitrogen [Mass/volume] in Serum or Plasma 2024-01-26 23:58:17 16 mg/dL F 9.0-23.0 Urea nitrogen [Mass/volume] in Serum or Plasma 2024-01-26 23:58:17 16 mg/dL F 9.0-23.0 Urea nitrogen [Mass/volume] in Serum or Plasma --post dialysis 2024-01-26 22:49:16 9 mg/dL F 9.0-23.0 Urea nitrogen [Mass/volume] in Serum or Plasma --post dialysis 2024-01-26 22:49:16 9 mg/dL F 9.0-23.0 TOTAL VOLUME-24 HR URINE 2024-01-26 08:05:12 700 mL F COLLECTION TIME FOR URINE 2024-01-26 08:05:12 1440 min F HEIGHT IN INCHES 2024-01-26 08:05:12 66 Inches F BODY WEIGHT (LBS) 2024-01-26 08:05:12 227.5 lbs F AMPUTATE FACTOR 2024-01-26 08:03:57 0 F CRE CLR UR/BSA 2024-01-20 22:23:06 12 mL/min F 75.0-115.0 CRE CLR UR/BSA 2024-01-20 22:23:06 12 mL/min F 75.0-115.0 Creatinine [Mass/volume] in Serum or Plasma 2024-01-19 22:03:22 1.64 mg/dL F 0.5-1.1 Creatinine [Mass/volume] in Serum or Plasma 2024-01-19 22:03:22 1.64 mg/dL F 0.5-1.1 BSA CHAPARRITA 2024-01-19 22:01:13 2.13 sq m F BSA CHAPARRITA 2024-01-19 22:01:13 2.13 sq m F Creatinine [Mass/volume] in Urine 2024-01-19 22:00:23 70.99 mg/dL F Creatinine [Mass/volume] in Urine 2024-01-19 22:00:23 70.99 mg/dL F COLLECTION TIME FOR URINE 2024-01-18 21:18:03 1440 min F TOTAL VOLUME-24 HR URINE 2024-01-18 21:18:03 500 mL F TOTAL VOLUME-24 HR URINE 2024-01-18 21:18:03 500 mL F COLLECTION TIME FOR URINE 2024-01-18 21:18:03 1440 min F HEIGHT IN INCHES 2024-01-18 21:18:03 66 Inches F BODY WEIGHT (LBS) 2024-01-18 21:18:03 231.9 lbs F BODY WEIGHT (LBS) 2024-01-18 21:18:03 231.9 lbs F HEIGHT IN INCHES 2024-01-18 21:18:03 66 Inches F AMPUTATE FACTOR 2024-01-18 21:18:01 0 F AMPUTATE FACTOR 2024-01-18 21:18:01 0 F VT (KT/V TX VOL) 2024-01-14 15:00:19 52.9 L F Dialyzer TAMMI 2024-01-14 15:00:19 1264 Calc F stdKT/V Total 2024-01-14 15:00:19 N/A F CURRENT KRU 2024-01-14 15:00:19 F Residual kt/v 2024-01-14 15:00:19 F stdKt/V (DIAL) 2024-01-14 15:00:19 N/A F KT/V PRESCRIBED 2024-01-14 15:00:19 1.39 F TOTAL HOURS/WEEK DIALYSIS 2024-01-14 15:00:19 8 hrs F nPCR 2024-01-14 15:00:19 0.42 G/KG/D F AMPUTATE FACTOR 2024-01-14 15:00:19 0 F DIALYZER FLOW-QD 2024-01-14 15:00:19 800 mL/min F WEIGHT (KG) 2024-01-14 15:00:19 111 kg F eKt/V 2024-01-14 15:00:19 0.78 F LENGTH OF DIALYSIS 2024-01-14 15:00:19 169 min F BLOOD FLOW-QWB 2024-01-14 15:00:19 388 F spKt/V 2024-01-14 15:00:19 0.93 F PATIENT AGE 2024-01-14 15:00:19 68 Years F Total Kt/V 2024-01-14 15:00:19 0.93 F WEIGHT - POST DAY 1 2024-01-14 15:00:19 108.1 kg F PRESCRIBED DAYS/WEEK 2024-01-14 15:00:19 3 Day/Wk F VM (KT/V MEAN VOL) 2024-01-14 15:00:19 60.3 F URR% 2024-01-14 15:00:19 57 % F TBW (Zuñiga) 2024-01-14 15:00:19 42.48 Liters F Std Renal KT/V 2024-01-14 15:00:19 N/A F HEIGHT IN INCHES 2024-01-14 15:00:19 66 Inches F BSA CHAPARRITA 2024-01-14 15:00:19 2.18 sq m F WEIGHT - PRE DAY 1 2024-01-14 15:00:19 109 kg F stdKT/V Total 2024-01-14 15:00:19 N/A F PRESCRIBED DAYS/WEEK 2024-01-14 15:00:19 3 Day/Wk F spKt/V 2024-01-14 15:00:19 0.93 F VT (KT/V TX VOL) 2024-01-14 15:00:19 52.9 L F WEIGHT (KG) 2024-01-14 15:00:19 111 kg F URR% 2024-01-14 15:00:19 57 % F WEIGHT - PRE DAY 1 2024-01-14 15:00:19 109 kg F WEIGHT - POST DAY 1 2024-01-14 15:00:19 108.1 kg F AMPUTATE FACTOR 2024-01-14 15:00:19 0 F BLOOD FLOW-QWB 2024-01-14 15:00:19 388 F PATIENT AGE 2024-01-14 15:00:19 68 Years F BSA CHAPARRITA 2024-01-14 15:00:19 2.18 sq m F Std Renal KT/V 2024-01-14 15:00:19 N/A F nPCR 2024-01-14 15:00:19 0.42 G/KG/D F eKt/V 2024-01-14 15:00:19 0.78 F Total Kt/V 2024-01-14 15:00:19 0.93 F TBW (Zuñiga) 2024-01-14 15:00:19 42.48 Liters F stdKt/V (DIAL) 2024-01-14 15:00:19 N/A F LENGTH OF DIALYSIS 2024-01-14 15:00:19 169 min F DIALYZER FLOW-QD 2024-01-14 15:00:19 800 mL/min F VM (KT/V MEAN VOL) 2024-01-14 15:00:19 60.3 F KT/V PRESCRIBED 2024-01-14 15:00:19 1.39 F CURRENT KRU 2024-01-14 15:00:19 F TOTAL HOURS/WEEK DIALYSIS 2024-01-14 15:00:19 8 hrs F Dialyzer TAMMI 2024-01-14 15:00:19 1264 Calc F Residual kt/v 2024-01-14 15:00:19 F HEIGHT IN INCHES 2024-01-14 15:00:19 66 Inches F BUN/CREAT 2024-01-14 14:58:51 14 Calc F 8.2-46.0 BUN/CREAT 2024-01-14 14:58:51 14 Calc F 8.2-46.0 Creatinine [Mass/volume] in Serum or Plasma 2024-01-14 14:58:37 1.5 mg/dL F 0.5-1.1 Urea nitrogen [Mass/volume] in Serum or Plasma 2024-01-14 14:58:37 21 mg/dL F 9.0-23.0 Creatinine [Mass/volume] in Serum or Plasma 2024-01-14 14:58:37 1.5 mg/dL F 0.5-1.1 Urea nitrogen [Mass/volume] in Serum or Plasma 2024-01-14 14:58:37 21 mg/dL F 9.0-23.0 Urea nitrogen [Mass/volume] in Serum or Plasma --post dialysis 2024-01-14 13:57:15 9 mg/dL F 9.0-23.0 Urea nitrogen [Mass/volume] in Serum or Plasma --post dialysis 2024-01-14 13:57:15 9 mg/dL F 9.0-23.0 KRU-UREA CLR UR 2024-01-10 11:38:22 0 mL/min F CRE CLR UR/BSA 2024-01-10 11:38:22 0 mL/min F 75.0-115.0 KRU-UREA CLR UR 2024-01-10 11:38:22 0 mL/min F CRE CLR UR/BSA 2024-01-10 11:38:22 0 mL/min F 75.0-115.0 BSA CH[facility]ARRITA 2024-01-07 20:00:57 2.16 sq m F BUN/CREAT 2024-01-07 20:00:57 9.6 Calc F 8.2-46.0 BSA CHAPARRITA 2024-01-07 20:00:57 2.16 sq m F BUN/CREAT 2024-01-07 20:00:57 9.6 Calc F 8.2-46.0 Creatinine [Mass/volume] in Serum or Plasma 2024-01-07 20:00:19 1.56 mg/dL F 0.5-1.1 Urea nitrogen [Mass/volume] in Serum or Plasma 2024-01-07 20:00:19 15 mg/dL F 9.0-23.0 Creatinine [Mass/volume] in Serum or Plasma 2024-01-07 20:00:19 1.56 mg/dL F 0.5-1.1 Urea nitrogen [Mass/volume] in Serum or Plasma 2024-01-07 20:00:19 15 mg/dL F 9.0-23.0 HEIGHT IN INCHES 2024-01-06 20:07:10 66 Inches F BODY WEIGHT (LBS) 2024-01-06 20:07:10 239.36 lbs F BODY WEIGHT (LBS) 2024-01-06 20:07:10 239.36 lbs F HEIGHT IN INCHES 2024-01-06 20:07:10 66 Inches F WEIGHT - PRE DAY 1 2023-12-31 04:18:41 114.8 kg F WEIGHT (KG) 2023-12-31 04:18:41 120.3 kg F CURRENT KRU 2023-12-31 04:18:41 F KT/V PRESCRIBED 2023-12-31 04:18:41 1.65 F BLOOD FLOW-QWB 2023-12-31 04:18:41 221 F URR% 2023-12-31 04:18:41 47 % F spKt/V 2023-12-31 04:18:41 0.68 F TOTAL HOURS/WEEK DIALYSIS 2023-12-31 04:18:41 10 hrs F stdKt/V (DIAL) 2023-12-31 04:18:41 N/A F VM (KT/V MEAN VOL) 2023-12-31 04:18:41 62.8 F AMPUTATE FACTOR 2023-12-31 04:18:41 0 F Dialyzer TAMMI 2023-12-31 04:18:41 1264 Calc F WEIGHT - POST DAY 1 2023-12-31 04:18:41 114.8 kg F Residual kt/v 2023-12-31 04:18:41 F BSA CHAPARRITA 2023-12-31 04:18:41 2.26 sq m F PRESCRIBED DAYS/WEEK 2023-12-31 04:18:41 3 Day/Wk F TBW (Zuñiga) 2023-12-31 04:18:41 44.13 Liters F Std Renal KT/V 2023-12-31 04:18:41 N/A F stdKT/V Total 2023-12-31 04:18:41 N/A F HEIGHT IN INCHES 2023-12-31 04:18:41 66 Inches F nPCR 2023-12-31 04:18:41 0.31 G/KG/D F DIALYZER FLOW-QD 2023-12-31 04:18:41 800 mL/min F VT (KT/V TX VOL) 2023-12-31 04:18:41 60.4 L F LENGTH OF DIALYSIS 2023-12-31 04:18:41 212 min F eKt/V 2023-12-31 04:18:41 0.61 F Total Kt/V 2023-12-31 04:18:41 0.68 F PATIENT AGE 2023-12-31 04:18:41 68 Years F eKt/V 2023-12-31 04:18:41 0.61 F DIALYZER FLOW-QD 2023-12-31 04:18:41 800 mL/min F LENGTH OF DIALYSIS 2023-12-31 04:18:41 212 min F stdKT/V Total 2023-12-31 04:18:41 N/A F KT/V PRESCRIBED 2023-12-31 04:18:41 1.65 F Dialyzer TAMMI 2023-12-31 04:18:41 1264 Calc F Std Renal KT/V 2023-12-31 04:18:41 N/A F BLOOD FLOW-QWB 2023-12-31 04:18:41 221 F WEIGHT (KG) 2023-12-31 04:18:41 120.3 kg F Total Kt/V 2023-12-31 04:18:41 0.68 F stdKt/V (DIAL) 2023-12-31 04:18:41 N/A F VT (KT/V TX VOL) 2023-12-31 04:18:41 60.4 L F PRESCRIBED DAYS/WEEK 2023-12-31 04:18:41 3 Day/Wk F Residual kt/v 2023-12-31 04:18:41 F VM (KT/V MEAN VOL) 2023-12-31 04:18:41 62.8 F HEIGHT IN INCHES 2023-12-31 04:18:41 66 Inches F CURRENT KRU 2023-12-31 04:18:41 F WEIGHT - PRE DAY 1 2023-12-31 04:18:41 114.8 kg F TOTAL HOURS/WEEK DIALYSIS 2023-12-31 04:18:41 10 hrs F PATIENT AGE 2023-12-31 04:18:41 68 Years F URR% 2023-12-31 04:18:41 47 % F BSA CHAPARRITA 2023-12-31 04:18:41 2.26 sq m F AMPUTATE FACTOR 2023-12-31 04:18:41 0 F WEIGHT - POST DAY 1 2023-12-31 04:18:41 114.8 kg F spKt/V 2023-12-31 04:18:41 0.68 F nPCR 2023-12-31 04:18:41 0.31 G/KG/D F TBW (Zuñiga) 2023-12-31 04:18:41 44.13 Liters F Urea nitrogen [Mass/volume] in Serum or Plasma 2023-12-31 04:16:17 17 mg/dL F 9.0-23.0 Urea nitrogen [Mass/volume] in Serum or Plasma 2023-12-31 04:16:17 17 mg/dL F 9.0-23.0 Urea nitrogen [Mass/volume] in Serum or Plasma --post dialysis 2023-12-29 23:32:20 9 mg/dL F 9.0-23.0 Urea nitrogen [Mass/volume] in Serum or Plasma --post dialysis 2023-12-29 23:32:20 9 mg/dL F 9.0-23.0 BUN/CREAT 2023-12-17 17:55:04 10.3 Calc F 8.2-46.0 Creatinine [Mass/volume] in Serum or Plasma 2023-12-17 17:54:12 2.91 mg/dL F 0.5-1.1 Urea nitrogen [Mass/volume] in Serum or Plasma 2023-12-17 17:54:12 30 mg/dL F 9.0-23.0 WEIGHT (KG) 2023-12-15 22:44:42 132 kg F Total Kt/V 2023-12-15 22:44:42 0.85 F stdKt/V (DIAL) 2023-12-15 22:44:42 N/A F VM (KT/V MEAN VOL) 2023-12-15 22:44:42 63.6 F nPCR 2023-12-15 22:44:42 0.5 G/KG/D F Residual kt/v 2023-12-15 22:44:42 F BLOOD FLOW-QWB 2023-12-15 22:44:42 374 F CURRENT KRU 2023-12-15 22:44:42 F WEIGHT - POST DAY 1 2023-12-15 22:44:42 120.3 kg F eKt/V 2023-12-15 22:44:42 0.73 F Std Renal KT/V 2023-12-15 22:44:42 N/A F KT/V PRESCRIBED 2023-12-15 22:44:42 1.3 F spKt/V 2023-12-15 22:44:42 0.85 F VT (KT/V TX VOL) 2023-12-15 22:44:42 59.2 L F stdKT/V Total 2023-12-15 22:44:42 N/A F HEIGHT IN INCHES 2023-12-15 22:44:42 66 Inches F TOTAL HOURS/WEEK DIALYSIS 2023-12-15 22:44:42 7 hrs F Dialyzer TAMMI 2023-12-15 22:44:42 1264 Calc F BSA CHAPARRITA 2023-12-15 22:44:42 2.35 sq m F PRESCRIBED DAYS/WEEK 2023-12-15 22:44:42 3 Day/Wk F AMPUTATE FACTOR 2023-12-15 22:44:42 0 F TBW (Zuñiga) 2023-12-15 22:44:42 45.49 Liters F PATIENT AGE 2023-12-15 22:44:42 68 Years F DIALYZER FLOW-QD 2023-12-15 22:44:42 800 mL/min F WEIGHT - PRE DAY 1 2023-12-15 22:44:42 121.2 kg F LENGTH OF DIALYSIS 2023-12-15 22:44:42 177 min F CURRENT KRU 2023-12-15 22:44:42 F stdKT/V Total 2023-12-15 22:44:42 N/A F PATIENT AGE 2023-12-15 22:44:42 68 Years F Dialyzer TAMMI 2023-12-15 22:44:42 1264 Calc F PRESCRIBED DAYS/WEEK 2023-12-15 22:44:42 3 Day/Wk F eKt/V 2023-12-15 22:44:42 0.73 F DIALYZER FLOW-QD 2023-12-15 22:44:42 800 mL/min F BLOOD FLOW-QWB 2023-12-15 22:44:42 374 F nPCR 2023-12-15 22:44:42 0.5 G/KG/D F VM (KT/V MEAN VOL) 2023-12-15 22:44:42 63.6 F Std Renal KT/V 2023-12-15 22:44:42 N/A F stdKt/V (DIAL) 2023-12-15 22:44:42 N/A F Residual kt/v 2023-12-15 22:44:42 F KT/V PRESCRIBED 2023-12-15 22:44:42 1.3 F spKt/V 2023-12-15 22:44:42 0.85 F HEIGHT IN INCHES 2023-12-15 22:44:42 66 Inches F BSA CHAPARRITA 2023-12-15 22:44:42 2.35 sq m F TOTAL HOURS/WEEK DIALYSIS 2023-12-15 22:44:42 7 hrs F Total Kt/V 2023-12-15 22:44:42 0.85 F AMPUTATE FACTOR 2023-12-15 22:44:42 0 F WEIGHT - POST DAY 1 2023-12-15 22:44:42 120.3 kg F VT (KT/V TX VOL) 2023-12-15 22:44:42 59.2 L F LENGTH OF DIALYSIS 2023-12-15 22:44:42 177 min F WEIGHT (KG) 2023-12-15 22:44:42 132 kg F WEIGHT - PRE DAY 1 2023-12-15 22:44:42 121.2 kg F TBW (Zuñiga) 2023-12-15 22:44:42 45.49 Liters F URR% 2023-12-15 22:44:41 54 % F URR% 2023-12-15 22:44:41 54 % F Urea nitrogen [Mass/volume] in Serum or Plasma --post dialysis 2023-12-15 22:43:19 16 mg/dL F 9.0-23.0 Urea nitrogen [Mass/volume] in Serum or Plasma --post dialysis 2023-12-15 22:43:19 16 mg/dL F 9.0-23.0 Urea nitrogen [Mass/volume] in Serum or Plasma 2023-12-15 22:06:13 35 mg/dL F 9.0-23.0 Urea nitrogen [Mass/volume] in Serum or Plasma 2023-12-15 22:06:13 35 mg/dL F 9.0-23.0 stdKT/V Total 2023-12-14 14:58:52 N/A F BLOOD FLOW-QWB 2023-12-14 14:58:52 399 F Total Kt/V 2023-12-14 14:58:52 0.71 F TOTAL HOURS/WEEK DIALYSIS 2023-12-14 14:58:52 2 hrs F stdKt/V (DIAL) 2023-12-14 14:58:52 N/A F spKt/V 2023-12-14 14:58:52 0.71 F CURRENT KRU 2023-12-14 14:58:52 F Std Renal KT/V 2023-12-14 14:58:52 N/A F Dialyzer TAMMI 2023-12-14 14:58:51 1264 Calc F VM (KT/V MEAN VOL) 2023-12-14 14:58:51 65.1 F PATIENT AGE 2023-12-14 14:58:51 68 Years F WEIGHT - POST DAY 1 2023-12-14 14:58:51 120.1 kg F TBW (Zuñiga) 2023-12-14 14:58:51 45.44 Liters F KT/V PRESCRIBED 2023-12-14 14:58:51 1.15 F Residual kt/v 2023-12-14 14:58:51 F BSA CHAPARRITA 2023-12-14 14:58:51 2.35 sq m F AMPUTATE FACTOR 2023-12-14 14:58:51 0 F eKt/V 2023-12-14 14:58:51 0.61 F DIALYZER FLOW-QD 2023-12-14 14:58:51 500 mL/min F LENGTH OF DIALYSIS 2023-12-14 14:58:51 171 min F HEIGHT IN INCHES 2023-12-14 14:58:51 66 Inches F WEIGHT (KG) 2023-12-14 14:58:51 132 kg F WEIGHT - PRE DAY 1 2023-12-14 14:58:51 119.6 kg F VT (KT/V TX VOL) 2023-12-14 14:58:51 65.1 L F PRESCRIBED DAYS/WEEK 2023-12-14 14:58:51 3 Day/Wk F nPCR 2023-12-14 14:58:51 0.26 G/KG/D F URR% 2023-12-14 14:58:50 50 % F KRU-UREA CLR UR 2023-12-14 14:56:27 0 mL/min F BUN/CREAT 2023-12-08 21:18:56 8.6 Calc F 8.2-46.0 Creatinine [Mass/volume] in Serum or Plasma 2023-12-08 21:18:19 3.73 mg/dL F 0.5-1.1 Urea nitrogen [Mass/volume] in Serum or Plasma 2023-12-08 21:18:19 32 mg/dL F 9.0-23.0 KT/V PRESCRIBED 2023-12-08 20:04:38 1.15 F Residual kt/v 2023-12-08 20:04:38 F BLOOD FLOW-QWB 2023-12-08 20:04:38 399 F Std Renal KT/V 2023-12-08 20:04:38 N/A F stdKT/V Total 2023-12-08 20:04:38 N/A F spKt/V 2023-12-08 20:04:38 0.71 F VT (KT/V TX VOL) 2023-12-08 20:04:38 65.1 L F HEIGHT IN INCHES 2023-12-08 20:04:38 66 Inches F eKt/V 2023-12-08 20:04:38 0.61 F TOTAL HOURS/WEEK DIALYSIS 2023-12-08 20:04:38 2 hrs F Total Kt/V 2023-12-08 20:04:38 0.71 F AMPUTATE FACTOR 2023-12-08 20:04:38 0 F TBW (Zuñiga) 2023-12-08 20:04:38 45.44 Liters F CURRENT KRU 2023-12-08 20:04:38 F PRESCRIBED DAYS/WEEK 2023-12-08 20:04:38 3 Day/Wk F nPCR 2023-12-08 20:04:38 0.26 G/KG/D F VM (KT/V MEAN VOL) 2023-12-08 20:04:38 65.1 F stdKt/V (DIAL) 2023-12-08 20:04:38 N/A F WEIGHT (KG) 2023-12-08 20:04:38 132 kg F DIALYZER FLOW-QD 2023-12-08 20:04:37 500 mL/min F URR% 2023-12-08 20:04:37 50 % F LENGTH OF DIALYSIS 2023-12-08 20:04:37 171 min F WEIGHT - PRE DAY 1 2023-12-08 20:04:37 119.6 kg F BSA CHAPARRITA 2023-12-08 20:04:37 2.35 sq m F WEIGHT - POST DAY 1 2023-12-08 20:04:37 120.1 kg F PATIENT AGE 2023-12-08 20:04:37 68 Years F Dialyzer TAMMI 2023-12-08 20:04:37 1264 Calc F Urea nitrogen [Mass/volume] in Serum or Plasma --post dialysis 2023-12-08 20:03:19 16 mg/dL F 9.0-23.0 Urea nitrogen [Mass/volume] in Serum or Plasma --post dialysis 2023-12-08 20:03:19 16 mg/dL F 9.0-23.0 BUN/CREAT 2023-12-08 18:59:47 8.6 Calc F 8.2-46.0 BUN/CREAT 2023-12-08 18:59:47 8.6 Calc F 8.2-46.0 KRU-UREA CLR UR 2023-12-08 18:59:47 see comments F Unable to Calculate. CRE CLR UR/BSA 2023-12-08 18:59:47 see comments F 75.0-115.0 Unable to Calculate. CRE CLR UR/BSA 2023-12-08 18:59:47 see comments F 75.0-115.0 Unable to Calculate. Creatinine [Mass/volume] in Serum or Plasma 2023-12-08 18:59:20 3.72 mg/dL F 0.5-1.1 Urea nitrogen [Mass/volume] in Serum or Plasma 2023-12-08 18:59:20 32 mg/dL F 9.0-23.0 Creatinine [Mass/volume] in Serum or Plasma 2023-12-08 18:59:20 3.72 mg/dL F 0.5-1.1 Urea nitrogen [Mass/volume] in Serum or Plasma 2023-12-08 18:59:20 32 mg/dL F 9.0-23.0 BODY WEIGHT (LBS) 2023-12-07 17:43:10 BODY WEIGHT (LBS) 2023-12-07 17:43:10 BSA CHAPARRITA Urea nitrogen [Mass/volume] in Serum or Plasma KRU-UREA CLR UR CRE CLR UR/BSA Creatinine [Mass/volume] in Serum or Plasma CRE CLR UR/BSA KRU-UREA CLR UR BSA CHAPARRITA Urea nitrogen [Mass/volume] in Serum or Plasma Creatinine [Mass/volume] in Serum or Plasma Anemia Description Draw Date Result/Unit Status Ref Range Result Comments HCT CALC HGBX3 2024-01-22 00:52:46 27.6 % F 37.0-47.0 HCT CALC HGBX3 2024-01-22 00:52:46 27.6 % F 37.0-47.0 Hemoglobin [Mass/volume] in Blood 2024-01-22 00:51:16 9.2 g/dL F 12.0-16.0 Hemoglobin [Mass/volume] in Blood 2024-01-22 00:51:16 9.2 g/dL F 12.0-16.0 Ferritin [Mass/volume] in Serum or Plasma 2024-01-08 06:18:22 226 ng/mL F 10.0-291.0 Ferritin [Mass/volume] in Serum or Plasma 2024-01-08 06:18:22 226 ng/mL F 10.0-291.0 IRON SATURATION 2024-01-08 03:36:46 14 % F 16.0-46.0 TIBC 2024-01-08 03:36:46 189 ug/dL F 250.0-425.0 IRON SATURATION 2024-01-08 03:36:46 14 % F 16.0-46.0 TIBC 2024-01-08 03:36:46 189 ug/dL F 250.0-425.0 Iron [Mass/volume] in Serum or Plasma 2024-01-08 03:32:32 27 ug/dL F 50.0-170.0 Iron binding capacity.unsaturated [Mass/volume] in Serum or Plasma 2024-01-08 03:32:32 162 ug/dL F 80.0-375.0 Iron [Mass/volume] in Serum or Plasma 2024-01-08 03:32:32 27 ug/dL F 50.0-170.0 Iron binding capacity.unsaturated [Mass/volume] in Serum or Plasma 2024-01-08 03:32:32 162 ug/dL F 80.0-375.0 HCT CALC HGBX3 2024-01-07 15:16:17 27.3 % F 37.0-47.0 HCT CALC HGBX3 2024-01-07 15:16:17 27.3 % F 37.0-47.0 Hemoglobin [Mass/volume] in Blood 2024-01-07 15:16:11 9.1 g/dL F 12.0-16.0 Hemoglobin [Mass/volume] in Blood 2024-01-07 15:16:11 9.1 g/dL F 12.0-16.0 HCT CALC HGBX3 2023-12-30 22:37:26 27 % F 37.0-47.0 HCT CALC HGBX3 2023-12-30 22:37:26 27 % F 37.0-47.0 Hemoglobin [Mass/volume] in Blood 2023-12-30 22:36:22 9 g/dL F 12.0-16.0 Hemoglobin [Mass/volume] in Blood 2023-12-30 22:36:22 9 g/dL F 12.0-16.0 IRON SATURATION 2023-12-09 05:08:46 11 % F 16.0-46.0 TIBC 2023-12-09 05:08:46 241 ug/dL F 250.0-425.0 TIBC 2023-12-09 05:08:46 241 ug/dL F 250.0-425.0 IRON SATURATION 2023-12-09 05:08:46 11 % F 16.0-46.0 Iron [Mass/volume] in Serum or Plasma 2023-12-09 05:01:43 26 ug/dL F 50.0-170.0 Iron [Mass/volume] in Serum or Plasma 2023-12-09 05:01:43 26 ug/dL F 50.0-170.0 Iron binding capacity.unsaturated [Mass/volume] in Serum or Plasma 2023-12-09 05:01:43 215 ug/dL F 80.0-375.0 Iron binding capacity.unsaturated [Mass/volume] in Serum or Plasma 2023-12-09 05:01:43 215 ug/dL F 80.0-375.0 HCT CALC HGBX3 2023-12-08 19:43:42 25.8 % F 37.0-47.0 HCT CALC HGBX3 2023-12-08 19:43:42 25.8 % F 37.0-47.0 Reticulocytes/100 erythrocytes in Blood by Automated count 2023-12-08 19:43:09 4.11 % F 0.7-2.5 Hemoglobin [Mass/volume] in Blood 2023-12-08 19:43:09 8.6 g/dL F 12.0-16.0 Hemoglobin [Mass/volume] in Blood 2023-12-08 19:43:09 8.6 g/dL F 12.0-16.0 Reticulocytes/100 erythrocytes in Blood by Automated count 2023-12-08 19:43:09 4.11 % F 0.7-2.5 Ferritin [Mass/volume] in Serum or Plasma 2023-12-08 19:36:46 80 ng/mL F 10.0-291.0 Ferritin [Mass/volume] in Serum or Plasma 2023-12-08 19:36:46 80 ng/mL F 10.0-291.0 Iron binding capacity.unsaturated [Mass/volume] in Serum or Plasma Iron [Mass/volume] in Serum or Plasma IRON SATURATION Ferritin [Mass/volume] in Serum or Plasma Hemoglobin [Mass/volume] in Blood TIBC Iron [Mass/volume] in Serum or Plasma Hemoglobin [Mass/volume] in Blood Iron binding capacity.unsaturated [Mass/volume] in Serum or Plasma TIBC IRON SATURATION Ferritin [Mass/volume] in Serum or Plasma FluidBP Description Draw Date Result/Unit Status Ref Range Result Comments Sodium [Moles/volume] in Serum or Plasma 2024-02-14 08:22:42 F Canceled - Speci men not received 5 days past draw date Sodium [Moles/volume] in Serum or Plasma 2024-02-14 08:22:42 F Canceled - Speci men not received 5 days past draw date Sodium [Moles/volume] in Serum or Plasma 2024-02-08 21:35:51 139 mEq/L F Sodium [Moles/volume] in Serum or Plasma 2024-01-28 13:31:24 F Recollect - Unsp un specimen Sodium [Moles/volume] in Serum or Plasma 2024-01-15 02:52:06 138 mEq/L F 132.0-146.0 Sodium [Moles/volume] in Serum or Plasma 2024-01-15 02:52:06 138 mEq/L F 132.0-146.0 Sodium [Moles/volume] in Serum or Plasma 2024-01-08 03:32:31 139 mEq/L F 132.0-146.0 Sodium [Moles/volume] in Serum or Plasma 2024-01-08 03:32:31 139 mEq/L F 132.0-146.0 Sodium [Moles/volume] in Serum or Plasma 2023-12-18 04:55:21 137 mEq/L F 132.0-146.0 Sodium [Moles/volume] in Serum or Plasma 2023-12-09 05:03:09 135 mEq/L F 132.0-146.0 Sodium [Moles/volume] in Serum or Plasma 2023-12-09 05:01:43 136 mEq/L F 132.0-146.0 Sodium [Moles/volume] in Serum or Plasma 2023-12-09 05:01:43 136 mEq/L F 132.0-146.0 General Description Draw Date Result/Unit Status Ref Range Result Comments Chloride [Moles/volume] in Serum or Plasma 2024-01-28 13:31:24 F Recollect - Unspun specimen Chloride [Moles/volume] in Serum or Plasma 2024-01-15 02:52:06 105 mEq/L F 99.0-109.0 Chloride [Moles/volume] in Serum or Plasma 2024-01-15 02:52:06 105 mEq/L F 99.0-109.0 Chloride [Moles/volume] in Serum or Plasma 2024-01-08 03:32:31 104 mEq/L F 99.0-109.0 Chloride [Moles/volume] in Serum or Plasma 2024-01-08 03:32:31 104 mEq/L F 99.0-109.0 Alanine aminotransferase [Enzymatic activity/volume] in Serum or Plasma 2024-01-07 20:00:19 10 U/L F 10.0-49.0 Alanine aminotransferase [Enzymatic activity/volume] in Serum or Plasma 2024-01-07 20:00:19 10 U/L F 10.0-49.0 Chloride [Moles/volume] in Serum or Plasma 2023-12-18 04:55:21 101 mEq/L F 99.0-109.0 Chloride [Moles/volume] in Serum or Plasma 2023-12-09 05:03:09 99 mEq/L F 99.0-109.0 Alanine aminotransferase [Enzymatic activity/volume] in Serum or Plasma 2023-12-08 18:59:20 9 U/L F 10.0-49.0 Alanine aminotransferase [Enzymatic activity/volume] in Serum or Plasma 2023-12-08 18:59:20 9 U/L F 10.0-49.0 Aluminum [Mass/volume] in Serum or Plasma 2023-12-08 16:23:16 10 ug/L F 0.0-9.0 Aluminum [Mass/volume] in Serum or Plasma 2023-12-08 16:23:16 10 ug/L F 0.0-9.0 Alanine aminotransferase [Enzymatic activity/volume] in Serum or Plasma Alanine aminotransferase [Enzymatic activity/volume] in Serum or Plasma MineralBone Disorder Description Draw Date Result/Unit Status Ref Range Result Comments CA CORRECTED 2024-01-27 08:54:29 9.2 mg/dL F CA CORRECTED 2024-01-27 08:54:29 9.2 mg/dL F CA/PHOS PRODUCT 2024-01-27 08:53:37 30.7 Calc F 21.0-53.0 CA*PO4 CORRCTD 2024-01-27 08:53:37 34 Calc F 21.0-53.0 CA*PO4 CORRCTD 2024-01-27 08:53:37 34 Calc F 21.0-53.0 CA/PHOS PRODUCT 2024-01-27 08:53:37 30.7 Calc F 21.0-53.0 Calcium [Mass/volume] in Serum or Plasma 2024-01-27 07:50:18 8.3 mg/dL F 8.7-10.4 Calcium [Mass/volume] in Serum or Plasma 2024-01-27 07:50:18 8.3 mg/dL F 8.7-10.4 Phosphate [Mass/volume] in Serum or Plasma 2024-01-26 23:58:17 3.7 mg/dL F 2.4-5.1 Phosphate [Mass/volume] in Serum or Plasma 2024-01-26 23:58:17 3.7 mg/dL F 2.4-5.1 Parathyrin.intact [Mass/volume] in Serum or Plasma 2024-01-21 17:44:17 61 pg/mL F 18.0-80.0 Parathyrin.intact [Mass/volume] in Serum or Plasma 2024-01-21 17:44:17 61 pg/mL F 18.0-80.0 CA CORRECTED 2023-12-31 07:45:35 8.7 mg/dL F CA CORRECTED 2023-12-31 07:45:35 8.7 mg/dL F CA*PO4 CORRCTD 2023-12-31 06:41:54 38.3 Calc F 21.0-53.0 CA/PHOS PRODUCT 2023-12-31 06:41:54 35.6 Calc F 21.0-53.0 CA/PHOS PRODUCT 2023-12-31 06:41:54 35.6 Calc F 21.0-53.0 CA*PO4 CORRCTD 2023-12-31 06:41:54 38.3 Calc F 21.0-53.0 Calcium [Mass/volume] in Serum or Plasma 2023-12-31 06:31:26 8.1 mg/dL F 8.7-10.4 Calcium [Mass/volume] in Serum or Plasma 2023-12-31 06:31:26 8.1 mg/dL F 8.7-10.4 Phosphate [Mass/volume] in Serum or Plasma 2023-12-31 04:16:17 4.4 mg/dL F 2.4-5.1 Phosphate [Mass/volume] in Serum or Plasma 2023-12-31 04:16:17 4.4 mg/dL F 2.4-5.1 Parathyrin.intact [Mass/volume] in Serum or Plasma 2023-12-30 22:50:23 114 pg/mL F 18.0-80.0 Parathyrin.intact [Mass/volume] in Serum or Plasma 2023-12-30 22:50:23 114 pg/mL F 18.0-80.0 CA CORRECTED 2023-12-09 05:14:48 8.8 mg/dL F CA CORRECTED 2023-12-09 05:14:48 8.8 mg/dL F CA/PHOS PRODUCT 2023-12-09 05:08:46 34.4 Calc F 21.0-53.0 CA*PO4 CORRCTD 2023-12-09 05:08:46 37 Calc F 21.0-53.0 CA*PO4 CORRCTD 2023-12-09 05:08:46 37 Calc F 21.0-53.0 CA/PHOS PRODUCT 2023-12-09 05:08:46 34.4 Calc F 21.0-53.0 Calcium [Mass/volume] in Serum or Plasma 2023-12-09 05:01:43 8.2 mg/dL F 8.7-10.4 Calcium [Mass/volume] in Serum or Plasma 2023-12-09 05:01:43 8.2 mg/dL F 8.7-10.4 25-Hydroxyvitamin D3+25-Hydroxyvitamin D2 [Mass/volume] in Serum or Plasma 2023-12-08 19:36:46 68.2 ng/mL F 25-Hydroxyvitamin D3+25-Hydroxyvitamin D2 [Mass/volume] in Serum or Plasma 2023-12-08 19:36:46 68.2 ng/mL F Phosphate [Mass/volume] in Serum or Plasma 2023-12-08 18:59:20 4.2 mg/dL F 2.4-5.1 Phosphate [Mass/volume] in Serum or Plasma 2023-12-08 18:59:20 4.2 mg/dL F 2.4-5.1 Parathyrin.intact [Mass/volume] in Serum or Plasma 2023-12-08 16:23:22 70 pg/mL F 18.0-80.0 Parathyrin.intact [Mass/volume] in Serum or Plasma 2023-12-08 16:23:22 70 pg/mL F 18.0-80.0 25-Hydroxyvitamin D3+25-Hydroxyvitamin D2 [Mass/volume] in Serum or Plasma 25-Hydroxyvitamin D3+25-Hydroxyvitamin D2 [Mass/volume] in Serum or Plasma Nutrition Description Draw Date Result/Unit Status Ref Range Result Comments Potassium [Moles/volume] in Serum or Plasma 2024-02-08 21:35:51 3.6 mEq/L F Potassium [Moles/volume] in Serum or Plasma 2024-01-28 13:31:24 F Recollect - Unsp un specimen Bicarbonate [Moles/volume] in Serum or Plasma 2024-01-28 13:31:24 F Recollect - Unsp un specimen Potassium [Moles/volume] in Serum or Plasma 2024-01-15 02:52:06 3.8 mEq/L F 3.5-5.5 Potassium [Moles/volume] in Serum or Plasma 2024-01-15 02:52:06 3.8 mEq/L F 3.5-5.5 Bicarbonate [Moles/volume] in Serum or Plasma 2024-01-14 14:58:37 29 mEq/L F 20.0-31.0 Bicarbonate [Moles/volume] in Serum or Plasma 2024-01-14 14:58:37 29 mEq/L F 20.0-31.0 Potassium [Moles/volume] in Serum or Plasma 2024-01-08 03:32:31 3.8 mEq/L F 3.5-5.5 Potassium [Moles/volume] in Serum or Plasma 2024-01-08 03:32:31 3.8 mEq/L F 3.5-5.5 Albumin [Mass/volume] in Serum or Plasma by Bromocresol green (BCG) dye binding method 2024-01-07 20:00:19 2.9 g/dL F 3.4-4.8 Glucose [Mass/volume] in Serum or Plasma 2024-01-07 20:00:19 88 mg/dL F 70.0-99.0 Bicarbonate [Moles/volume] in Serum or Plasma 2024-01-07 20:00:19 30 mEq/L F 20.0-31.0 Albumin [Mass/volume] in Serum or Plasma by Bromocresol green (BCG) dye binding method 2024-01-07 20:00:19 2.9 g/dL F 3.4-4.8 Bicarbonate [Moles/volume] in Serum or Plasma 2024-01-07 20:00:19 30 mEq/L F 20.0-31.0 Glucose [Mass/volume] in Serum or Plasma 2024-01-07 20:00:19 88 mg/dL F 70.0-99.0 Potassium [Moles/volume] in Serum or Plasma 2023-12-18 04:55:21 4.1 mEq/L F 3.5-5.5 Bicarbonate [Moles/volume] in Serum or Plasma 2023-12-17 17:54:12 30 mEq/L F 20.0-31.0 Potassium [Moles/volume] in Serum or Plasma 2023-12-09 05:03:09 4.5 mEq/L F 3.5-5.5 Bicarbonate [Moles/volume] in Serum or Plasma 2023-12-08 21:18:19 27 mEq/L F 20.0-31.0 Albumin [Mass/volume] in Serum or Plasma by Bromocresol green (BCG) dye binding method 2023-12-08 18:59:20 3.2 g/dL F 3.4-4.8 Glucose [Mass/volume] in Serum or Plasma 2023-12-08 18:59:20 65 mg/dL F 70.0-99.0 Glucose [Mass/volume] in Serum or Plasma 2023-12-08 18:59:20 65 mg/dL F 70.0-99.0 Albumin [Mass/volume] in Serum or Plasma by Bromocresol green (BCG) dye binding method 2023-12-08 18:59:20 3.2 g/dL F 3.4-4.8 Glucose [Mass/volume] in Serum or Plasma Albumin [Mass/volume] in Serum or Plasma by Bromocresol green (BCG) dye binding method Albumin [Mass/volume] in Serum or Plasma by Bromocresol green (BCG) dye binding method Glucose [Mass/volume] in Serum or Plasma Encounters No encounter information to report Immunizations Ordered Immunization Name Filled Immunization Name Date Status Comments Refusal Reason Hep B, adult 2024-01-06 19:00:00 TST-PPD intradermal 2024-01-06 17:27:00 Influenza, high-dose, quadrivalent, PF 2023-12-16 19:50:00 TST-PPD intradermal 2023-12-09 16:30:00 Plan of Treatment Planned Activity Provider Planned Date Details Commen ts Diagnostic Test Pending [facility] 2023-12-01 06:32:29 Ferritin [Mass/volume] in Serum or Plasma [code = 2276-4] Diagnostic Test Pending [facility] 2023-11-30 22:01:43 Albumin [Mass/volume] in Serum or Plasma by Bromocresol green (BCG) dye binding method [code = 52511-0] Diagnostic Test Pending [facility] 2023-11-30 22:02:01 Aluminum [Mass/volume] in Serum or Plasma [code = 5574-9] Diagnostic Test Pending [facility] 2023-11-30 22:04:47 Glucose [Mass/volume] in Serum or Plasma [code = 2345-7] Diagnostic Test Pending [facility] 2024-01-14 06:22:15 Ferritin [Mass/volume] in Serum or Plasma [code = 2276-4] Diagnostic Test Pending [facility] 2023-12-19 05:00:00 Hemoglobin [Mass/volume] in Blood [code = 718-7] Diagnostic Test Pending [facility] 2023-12-12 05:00:00 Hemoglobin [Mass/volume] in Blood [code = 718-7] Diagnostic Test Pending [facility] 2023-12-01 06:32:22 Alanine aminotransferase [Enzymatic activity/volume] in Serum or Plasma [code = 1742-6] Diagnostic Test Pending [facility] 2023-11-30 22:07:09 Sodium [Moles/volume] in Serum or Plasma [code = 2951-2] Diagnostic Test Pending [facility] 2023-12-01 06:31:50 Parathyrin.intact [Mass/volume] in Serum or Plasma [code = 2731-8] Diagnostic Test Pending [facility] 2023-11-30 22:07:18 25-Hydroxyvitamin D3+25-Hydroxyvitamin D2 [Mass/volume] in Serum or Plasma [code = 16444-7] Diagnostic Test Pending [facility] 2023-11-30 22:04:33 Creatinine [Mass/volume] in Serum or Plasma [code = 2160-0] Diagnostic Test Pending [facility] 2024-01-15 20:24:31 In-Center Hemodialysis Treatment [code = OOZ005] Diagnostic Test Pending [facility] 2023-11-30 21:55:40 In-Center Hemodialysis Treatment [code = TRS796]
[2024-04-07 16:42] LABS: Add Urine Microscopic? YES; Appearance Urine Cloudy (Clear); Bacteria Urine 4+ /hpf; Bilirubin Urine Negative (Negative); Blood Urine 2+ (Negative); Color Urine Yellow (Yellow); Glucose Urine UA Negative (Negative); Ketones Urine Negative (Negative); Leukocyte Esterase Ur 1+ LEU/UL (Negative); Nitrate Urine Negative (Negative); Protein Urine 3+ mg/dL (Negative); RBC Urine 51-100 /hpf (0-2); Specific Grav Ur 1.016 (1.001-1.035); Squamous Epithelial Cell Urine None Seen /hpf (Few); Urobilinogen Urine 0.2 mg/dL (<2.0); WBC Urine >100 /hpf (0-3); pH Urine 5.5 (5.0-9.0)
== END 2024-04-07 16:16 | disposition home or self-care (01) ==
LOC: ANHLAB 16:16
PROVIDERS: PCP Physician Assistant; Visit Provider Physician Assistant
DX: R19.7 Diarrhea, unspecified (principal); N39.0 Urinary tract infection, site not specified
CPT/HCPCS: 81001

== ENCOUNTER 2024-04-14 15:35 | Outpatient (NON) | payer MEDICARE, SELFPAY ==
--- OUTSIDE RECORDS SUMMARY | 2024-04-14 15:40 | XMS_ITS | Encounter Summary ---
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 Gender Identity Not on file Sexual Orientation Not on file documented as of this encounter Plan of Treatment Not on file documented as of this encounter Visit Diagnoses Not on filedocumented in this encounter Additional Health Concerns Infection Onset Date Last Indicated Resolved Time MDR gram neg/ESBL 10/31/2021 07/23/2022 07/28/2023 8:05 AM CDT documented as of this encounter Care Teams Seconds Handler Relationship Specialty Start Date End Date Teressa De Jesus PA [address] [place] [address] PCP - General Physician Snuff Box Finisher 01/30/22 Teressa De Jesus PA [facility] [place] [address] Physician Snuff Box Finisher 01/30/22 Hien Amato DPM [address] [place] [id number] Consulting Physician Foot and Ankle Surg 09/28/19 documented as of this encounter
--- OUTSIDE RECORDS SUMMARY | 2024-04-14 15:40 | XMS_ITS | Data Portability ---
Author Organization [facility] KELLYRyann Address [address] [place] [address] Care Team Providers Care Program Supervisor Name Role Phone TERESSA ZAZUETA Primary Care Provider [phone] Assessment No assessment recorded. Plan of Treatment Reminders Order Date Submit Date Provider Last Modified By Organization Details Last Modified Time Details Appointments None recorded. Lab CBC w/ auto diff 2022 023 [facility], [address] [place] [address], [place] [address], [place], [address], 3 03:07:57 CMP, serum or plasma 2022 023 [facility], [address] [place] [place] [address], [facility] [address], [place], [address], 3 03:07:57 lipid panel, serum 2022 023 [facility], [address] [place] [address], [facility] [address], [place], [address], 3 03:07:58 HbA1c (hemoglobin A1c), blood 2023 024 [email or web address] In-Office Order, Internal Use Only DO Not Attach Compendium DO Not Attach Compendium, Do Not Delete/merge, [id number] 4 14:10:54 urinalysis, dipstick 2023 024 ANU In-Office Order, Internal Use Only DO Not Attach Compendium DO Not Attach Compendium, Do Not Delete/merge, [id number] 4 12:11:18 culture, urine 2023 024 [facility], [address], [address], [place], [address], 4 01:07:[address] referral 2023 024 Lisa Medina MD (Dermatology) , [address], [place], [address], 4 08:11:52 urologist referral 2023 024 [email or web address] Luis A Ku MD, [address] [place] [address], [place], [address], 4 08:06:01 wound care referral - PREFERS TO GO TO [facility] 2023 024 [email or web address] [facility], [address], [place], [address], 4 07:55:10 Procedures None recorded. Surgeries None recorded. Imaging MAMMO, screening, bilateral 2022 023 [facility], [address], [place], [address], 3 10:33:11 Medication Orders sulfamethox azole 800 mg-trimetho prim 160 mg tablet 2022 023 [email or web address] [facility] #19597, [address] [place], [place], [id number], 4 14:12:23 gabapentin 300 mg capsule 2022 024 ANU [facility] #69026, [address], [place], [id number], 4 11:41:20 loratadine 10 mg tablet 2023 024 [facility] #95324, [address] [place], [place], [id number], 4 14:15:52 permethrin 5 % topical cream 2023 024 [facility] #90001, [address] [place], [place], [id number], 4 08:49:29 trazodone 50 mg tablet 2023 024 [facility] #98889, [address] [place], [place], [id number], 4 14:32:13 triamcinolo ne acetonide 0.1 % topical ointment 2023 024 [facility] #26127, [address] [place] [address], [id number], 4 14:33:56 hydroxyzine HCl 50 mg tablet 2023 024 [facility] #11854, [address] [place] [address], [id number], 4 14:32:11 Trulicity 0.75 mg/0.5 mL subcutaneou s pen injector 2023 024 [facility] #33203, [address] [place] [address], [id number], 4 18:57:17 levothyroxi ne 125 mcg tablet 2023 024 [facility] #14213, [address] [place] [address], [id number], 12:07:45 Patient TargetsNo targets recorded. 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 Referral for C hronic urticaria Referring Physician: Teressa Zazueta [facility], Encounter Date: 06/29/2023 PREFERS TO GO TO [facility] Referring Physician: Teressa Zazueta [facility], Encounter Date: 09/28/2023 Urologist Referral for Reten tion of urine Referring Physician: Teressa Zazueta [facility], Encounter Date: 09/28/2023 Results Created Date Observation Date Name Description Value Unit Range Abnormal Flag Note LastModifiedBy Organization Detail LastModifiedTime 12/09/1912/16/2022 URINE CULTU RE ROUTI NE urine culture, routine Final report abnormal Not Available [facility] ([facility]) [address] [place], [address], 12/16/2022 10:16:15 12/09/1912/16/2022 URINE CULTU RE ROUTI NE result 1 Citrob acter aminah ii abnormal Great er than 100,0 00 colon y formi ng units per mL Not Available [facility] ([facility]) [address] [place], [address], 12/16/2022 10:16:15 12/09/1912/16/2022 URINE CULTU RE, ROUTI NE result 2 Raoult payton planti cola abnormal Great er than 100,0 00 colon y formi ng units per mL Not Available [facility] ([facility]) [address] [place], [address], 12/16/2022 10:16:15 12/09/19 23 12/16/2022 URINE CULTU [...] im/Esparza lfa S S Not Available [facility] ([facility]) [address] [facility], [place], [address], 12/16/2022 10:16:15 12/09/19 23 12/08/2022 urina lysis , dipst ick Leukocytes Negati ve Not Available In-Office Order Internal Use Only DO Not Attach Compendium DO Not Attach Compendium, Do Not Delete/merge, [id number] 12/08/2022 15:16:27 12/09/19 23 12/08/2022 urina lysis , dipst ick Nitrite positi ve Not Available In-Office Order Internal Use Only DO Not Attach Compendium DO Not Attach Compendium, Do Not Delete/merge, [id number] 12/08/2022 15:16:27 12/09/19 23 12/08/2022 urina lysis , dipst ick Urobilinogen .2 Not Available In-Of fice Order Internal Use Only DO Not Attach Compendium DO Not Attach Compendium, Do Not Delete/merge, [id number] 12/08/2022 15:16:27 12/09/19 23 12/08/2022 urina lysis [...] 12/08/2022 urina lysis , dipst ick Specific [place] 1.025 Not Available In-Off ice Order Internal [...] DO Not Attach Compendium, Do Not Delete/merge, [id number] 12/08/2022 15:16:27 12/17/1912/16/2022 LIPID PANEL WITH LDL/H DL RATIO cholesterol, total 217 mg/dL 100-19 9 above high normal Not Available [facility] Department [address] [place], [address], 12/16/2022 21:16:11 12/17/1912/16/2022 LIPID PANEL WITH LDL/H DL RATIO triglyceride s 165 mg/dL 0-149 above high normal Not Available [facility] Department [address] [place], [address], 12/16/2022 21:16:11 12/17/1912/16/2022 LIPID PANEL WITH LDL/H DL RATIO HDL cholesterol 42 mg/dL 40-999 Not Available [facility] Department [address] [place], [address], 12/16/2022 21:16:11 12/17/1912/16/2022 LIPID PANEL WITH LDL/H DL RATIO VLDL cholesterol ivonne 33 mg/dL 5-40 Not Available [facility] Department [address] [place], [address], 12/16/2022 21:16:11 12/17/1912/16/2022 LIPID PANEL WITH LDL/H DL RATIO LDL chol calc ([facility]) 164 mg/dL 0-99 above high normal Not Available [facility] Department [address] [place], [address], 12/16/2022 21:16:11 12/17/19 23 12/16/2022 LIPID PANEL WITH LDL/H DL RATIO LDL/HDL ratio 3.9 0-3.2 above high normal Not Available [facility] Department [address] [place], [address], 12/16/2022 21:16:11 10/04/20 23 12/16/2022 COMP. METAB OLIC PANEL (14) glucose 344 mg/dL 70-99 above high normal Not Available [facility] Department [address] [place], [address], 12/16/2022 21:16:11 12/17/19 23 12/16/2022 COMP. METAB OLIC PANEL (14) BUN 27 mg/dL 8-27 Not Available [facility] Department [address] [place], [address], 12/16/2022 21:16:11 12/17/19 23 12/16/2022 COMP. METAB OLIC PANEL (14) creatinine 2.19 mg/dL 0.76-1 .27 above high normal Not Available [facility] Department [address] [place] [address], [address], 12/16/2022 21:16:11 12/17/19 23 12/16/2022 COMP. METAB [...] disre vic that value . Not Available [facility] Department [address] [place] [address], [address], 12/16/2022 21:16:11 12/17/19 23 12/16/2022 COMP. METAB OLIC PANEL (14) BUN/creatini ne ratio 12 10-28 Not Available [facility] Department [address] [place], [address], 12/16/2022 21:16:11 12/17/19 23 12/16/2022 COMP. METAB OLIC PANEL (14) sodium 134 mmol/ L 134-14 4 Not Available [facility] Department [address] [place], [address], 12/16/2022 21:16:11 12/17/19 23 12/16/2022 COMP. METAB OLIC PANEL (14) potassium 5.6 mmol/ L 3.5-5. 2 above high normal Not Available [facility] [address] [place], [address], 12/16/2022 21:16:11 12/17/19 23 12/16/2022 COMP. METAB OLIC PANEL (14) chloride 102 mmol/ L 96-106 Not Available [facility] [address] [place], [address], 12/16/2022 21:16:11 12/17/19 23 12/16/2022 COMP. METAB OLIC PANEL (14) carbon dioxide, total 20 mmol/ L 20-29 Not Available [facility] [address] [place], [address], 12/16/2022 21:16:11 12/17/19 23 12/16/2022 COMP. METAB OLIC PANEL (14) calcium 9.3 mg/dL 8.7-10 .3 Not Available [facility] Department [address] [place], [address], 12/16/2022 21:16:11 12/17/19 23 12/16/2022 COMP. METAB OLIC PANEL (14) protein, total 7.1 g/dL 6.0-8. 5 Not Available [facility] Department [address] [place], [address], 12/16/2022 21:16:11 12/17/19 23 12/16/2022 COMP. METAB OLIC PANEL (14) albumin 3.7 g/dL 3.8-4. 8 below low normal Not Available [facility] [address] [place], [address], 12/16/2022 21:16:11 12/17/19 23 12/16/2022 COMP. METAB OLIC PANEL (14) globulin, total 3.4 g/dL 1.5-4. 5 Not Available [facility] [address] [place], [address], 12/16/2022 21:16:11 12/17/19 23 12/16/2022 COMP. METAB OLIC PANEL (14) A/G ratio 1.0 1.2-2. 2 below low normal Not Available [facility] [address] [place], [address], 12/16/2022 21:16:11 12/17/19 23 12/16/2022 COMP. METAB OLIC PANEL (14) bilirubin, total 0.2 mg/dL 0.0-1. 2 Not Available [facility] [address] [place], [address], 12/16/2022 21:16:11 12/17/19 23 12/16/2022 COMP. METAB OLIC PANEL (14) alkaline phosphatase 143 IU/L 44-121 above high normal Not Available [facility] [address] [place], [address], 12/16/2022 21:16:11 12/17/19 23 12/16/2022 COMP. METAB OLIC PANEL (14) AST (SGOT) 12 IU/L 0-40 Not Available [facility] Department [address] [place], [address], 12/16/2022 21:16:11 12/17/19 23 12/16/2022 COMP. METAB OLIC PANEL (14) ALT (SGPT) 12 IU/L 0-32 Not Available [facility] Department [address] [place], [address], 12/16/2022 21:16:11 12/17/19 23 12/16/2022 CBC WITH DIFFE RENTI AL/PL ATELE T WBC 8.6 x10e3 /uL 3.4-10 .8 Not Available [facility] [address] [place], [address], 12/16/2022 21:16:11 12/17/19 23 12/16/2022 CBC WITH DIFFE RENTI AL/PL ATELE T RBC 3.92 x10e6 /uL 3.77-5 .28 Not Available [facility] [address] [place], [address], 12/16/2022 21:16:11 12/17/1912/16/2022 CBC WITH DIFFE RENTI AL/PL ATELE T hemoglobin 9.5 g/dL 11.1-1 5.9 below low normal Not Available [facility] [address] [place], [address], 12/16/2022 21:16:11 12/17/1912/16/2022 CBC WITH DIFFE RENTI AL/PL ATELE T hematocrit 32.3 % 34.0-4 6.6 below low normal Not Available [facility] [address] [place], [address], 12/16/2022 21:16:11 12/17/1912/16/2022 CBC WITH DIFFE RENTI AL/PL ATELE T MCV 82 fL 79-97 Not Available [facility] [address] [place], [address], 12/16/2022 21:16:11 12/17/1912/16/2022 CBC WITH DIFFE RENTI AL/PL ATELE T MCH 24.2 pg 26.6-3 3.0 below low normal Not Available [facility] [address] [place], [address], 12/16/2022 21:16:11 12/17/1912/16/2022 CBC WITH DIFFE RENTI AL/PL ATELE T MCHC 29.4 g/dL 31.5-3 5.7 below low normal Not Available [facility] [address] [place], [address], 12/16/2022 21:16:11 12/17/1912/16/2022 CBC WITH DIFFE RENTI AL/PL ATELE T RDW 15.8 % 11.5-1 4.5 above high normal Not Available [facility] [address] [place], [address], 12/16/2022 21:16:11 12/17/1912/16/2022 CBC WITH DIFFE RENTI AL/PL ATELE T platelets 367 x10e3 /uL 150-45 0 Not Available [facility] [address] [place], [address], 12/16/2022 21:16:11 12/17/1912/16/2022 CBC WITH DIFFE RENTI AL/PL ATELE T neutrophils 67 % notest b. Not Available [facility] [address] [place], [address], 12/16/2022 21:16:11 12/17/1912/16/2022 CBC WITH DIFFE RENTI AL/PL ATELE T lymphs 20 % notest b. Not Available [facility] Department [address] [place], [address], 12/16/2022 21:16:11 12/17/19 23 12/16/2022 CBC WITH DIFFE RENTI AL/PL ATELE T monocytes 7 % notest b. Not Available [facility] [address] [place], [address], 12/16/2022 21:16:11 12/17/1912/16/2022 CBC WITH DIFFE RENTI AL/PL ATELE T eos 5 % notest b. Not Available [facility] [address] [place], [address], 12/16/2022 21:16:11 12/17/19 23 12/16/2022 CBC WITH DIFFE RENTI AL/PL ATELE T basos 1 % notest b. Not Available [facility] [address] [place], [address], 12/16/2022 21:16:11 12/17/1912/16/2022 CBC WITH DIFFE RENTI AL/PL ATELE T neutrophils (absolute) 5.8 x10e3 /uL 1.4-7. 0 Not Available [facility] [address] [place], [address], 12/16/2022 21:16:11 12/17/1912/16/2022 CBC WITH DIFFE RENTI AL/PL ATELE T lymphs (absolute) 1.8 x10e3 /uL 0.7-3. 1 Not Available [facility] [address] [place], [address], 12/16/2022 21:16:11 12/17/1912/16/2022 CBC WITH DIFFE RENTI AL/PL ATELE T monocytes(ab solute) 0.6 x10e3 /uL 0.1-0. 9 Not Available [facility] [address] [place], [address], 12/16/2022 21:16:11 12/17/1912/16/2022 CBC WITH DIFFE RENTI AL/PL ATELE T eos (absolute) 0.4 x10e3 /uL 0.0-0. 4 Not Available [facility] [address] [place], [address], 12/16/2022 21:16:11 12/17/1912/16/2022 CBC WITH DIFFE RENTI AL/PL ATELE T baso (absolute) 0.1 x10e3 /uL 0.0-0. 2 Not Available [facility] [address] [place], [address], 12/16/2022 21:16:11 12/17/19 23 12/16/2022 CBC WITH DIFFE RENTI AL/PL ATELE T immature granulocytes 0.5 % notest b. Not Available [facility] [address] [place], [address], 12/16/2022 21:16:11 12/17/19 23 12/16/2022 CBC WITH DIFFE RENTI AL/PL ATELE T immature grans (abs) 0.0 x10e3 /uL 0.0-0. 1 Not Available [facility] [address] [place], [address], 12/16/2022 21:16:11 12/17/19 23 12/16/2022 CBC WITH DIFFE RENTI AL/PL ATELE T NRBC 0 % 0-0 Not Available [facility] [address] [place], [address], 12/16/2022 21:16:11 04/14/19 24 04/17/2023 URINE CULTU RE, ROUTI NE urine culture, routine Final report abnormal Not Available [facility] ([facility]) [address] [facility], [place], [address], 04/17/2023 20:09:56 04/14/19 24 04/17/2023 URINE CULTU [...] Prote us mirab ilis. Not Available [facility] ([facility]) [address] [facility], [place], [address], 04/17/2023 20:09:56 04/14/19 24 04/17/2023 URINE CULTU [...] thopr im/Esparza lfa S Not Available [facility] ([facility]) [address] [facility], [place], [address], 04/17/2023 20:09:56 04/14/19 24 04/14/2023 urina lysis [...] 04/14/2023 urina lysis , dipst ick Specific [place] 1.030 Not Available In-Off ice Order Internal [...] DO Not Attach Compendium, Do Not Delete/merge, [id number] 05/25/2023 14:10:39 09/28/19 24 10/02/2023 URINE CULTU RE, ROUTI NE urine culture, routine FINAL REPORT abnormal Not Available [facility] ([facility]) [address] [facility], [place], [address], 10/02/2023 01:07:56 09/28/19 24 10/02/2023 URINE CULTU [...] Prote us mirab ilis. Not Available [facility] ([facility]) [address] [facility], [place], [address], 10/02/2023 01:07:56 09/28/19 24 10/02/2023 URINE CULTU [...] thopr im/Esparza lfa S Not Available [facility] ([facility]) [address] [facility], [place], [address], 10/02/2023 01:07:56 09/28/19 24 09/28/2023 urina lysis [...] 09/28/2023 urina lysis , dipst ick Specific [place] 1.015 Not Available In-Off ice Order Internal [...] 09/28/2023 urina lysis , dipst ick Color [place] Not Available In-Office Order Internal Use Only DO Not Attach Compendium DO Not Attach Compendium, Do Not Delete/merge, 09/28/2023 12:07:33 06/25/19 24 06/25/2023 XR, foot No observ ation record ed. [address], [place], [address], 06/25/2023 15:22:03 11/16/19 24 11/16/2023 CT, abdom en + pelvi s, w/o contr ast No observ ation record ed. [place] [address], [place], [address], 11/16/2023 10:55:04 11/17/19 24 11/16/2023 US, doppl er, arter ial No observ ation record ed. [address], [place], [address], 11/17/2023 12:46:41 11/20/19 24 11/20/2023 CT, brain , w/ contr ast No observ ation record ed. [address], [place], [address], 11/23/2023 11:48:41 11/20/19 24 11/20/2023 US, jonele x, carot id arter y No observ ation record ed. [place] [address] [address], [place], [address], 11/23/2023 11:49:34 11/23/19 24 11/23/2023 US, kidne y No observ ation record ed. [address], [place], [address], 11/23/2023 14:53:53 11/26/19 24 11/26/2023 imagi ng/di agnos tic resul t No observ ation record ed. [place] [address] [address], [place], [address], 11/29/2023 08:15:29 11/26/19 24 11/26/2023 imagi ng/di agnos tic resul t No observ ation record ed. [address], [place], [address], 11/29/2023 08:15:06 12/01/19 24 12/01/2023 MRI, brain + brain stem, w/wo contr ast No observ ation record ed. [address], [place], [address], 12/01/2023 17:28:22 12/03/19 24 11/16/2023 US, doppl er echoc ardio gram No observ ation record ed. [facility] Not Available 2023 18:04:38 12/10/19 24 11/16/2023 trans -thor acic echoc ardio gram (TTE) (PROC ) No observ ation record ed. [facility] Not Available 2023 10:28:26 02/17/20 24 02/17/2024 XR, chest , 2 view No observ ation record ed. [address], [place], [address], 02/22/2024 08:16:28 Result Notes None recorded. Problems Name Problem SNOMED Code Status Onset Date Resolution Date Notes Provider Name and Address Organization Details Recorded Time Diabetes mellitus 80096197 Active 2018 [facility] Attn: Donald forbes,[address] [place], [address], [place] [facility] 2 15:31:30 Hyperlipidem ia 56255335 Active 2020 Lisa German MD Attn: Donald forbes,[address] [place], [address], [place] [facility] 1 18:51:54 Coronary arterioscler osis 77672703 Active 2020 CABG x3 in 2017 [facility] BANUEL[facility] Attn: Donald g,[address] [place], [address], [place] [facility] 2 21:09:35 Gastroesopha geal reflux disease 190842349 Active 2020 EF[facility]ÍN BANUELOS Attn: Donald g,[address] [place], [address], [place] [facility] 1 14:23:51 Essential hypertension 20322697 Active 2020 [facility] BANUELOS Attn: Donald g,[address] [place], [address], [place] [facility] 1 14:24:22 Chronic kidney disease stage 4 250681116 Active 2021 [facility] BANUELOS Attn: Donald forbes,[address] [facility], [place], [address], [place] [facility] 2 15:31:32 History of osteomyeliti s 354066596 Active 10/2021: removed R 4th and 5th toes EFRAÍN BANUELOS Attn: Donald forbes,[address] [facility], [place], [address], [place] [facility] 2 20:50:37 Alkaline phosphatase above reference range 633634177 Active 2021 EFRAÍN BANUELOS Attn: Donald forbes,[address] [facility], [place], [address], [place] [facility] 2 13:32:46 Vitamin D deficiency 79198298 Active 2021 [facility] BANUELOS Attn: Donald forbes,[address] [facility], [place], [address], [place] [facility] 3 10:08:23 Uncontrolled type 2 diabetes mellitus 130943486 Active 2021 [facility] BANUELOS Attn: Donald forbes,[address] [facility], [place], [address], [place] [facility] 3 10:08:30 Atrial fibrillation 86087560 Active 2022 [facility]ANU[facility] Attn: Ednatalia forbes,[address] [place], [address], [place] [facility] 3 14:31:21 Hypothyroidi sm 87673172 Active 2023 [facility] BANUEL[facility] Attn: Ednatalia forbes,[address] [facility], [place], [address], [place] [facility] 4 11:31:34 Problem Notes None recorded. Procedures Surgical History Date Name Laterality Status Provider Name and Address Organization Details Recorded Time 4 Incision & Drainage completed [facility] Attn: Accounting,[address], [place], [address], [place] 05/25/2023 14:43:28 0 Amputation completed Leeann Lamb [place] [facility] 04/11/2020 12:17:23 8 Date of Last Mammogram completed [facility] 03/03/2019 15:47:31 coronary artery bypass grafts x 3 completed [facility] 03/03/2019 15:49:03 removal of ovarian cyst completed [facility] 03/03/2019 15:49:23 partial repair of rotator cuff completed [facility] 03/03/2019 15:50:13 extraction of cataract completed [facility] 03/03/2019 15:50:25 amputation completed Jennifer Green MA [place] [facility] 11/05/2021 17:04:58 Imaging Results Imaging Date Name Status LastModified by Organization Details LastModified Time 06/25/2023 XR, foot completed [address], [address], 06/25/2023 15:22:03 11/16/2023 CT, abdomen + pelvis, w/o contrast completed [address], [address], 11/16/2023 10:55:04 11/16/2023 US, doppler, arterial completed [address], [address], 11/17/2023 12:46:41 11/20/2023 CT, brain, w/ contrast completed [address], [address], 11/23/2023 11:48:41 11/20/2023 US, duplex, carotid artery completed [address], [address], 11/23/2023 11:49:34 11/23/2023 US, kidney completed [address], [address], 11/23/2023 14:53:53 11/26/2023 imaging/diagnostic result completed [address], [address], 11/29/2023 08:15:29 11/26/2023 imaging/diagnostic result completed [address], [address], 11/29/2023 08:15:06 12/01/2023 MRI, brain + brain stem, w/wo contrast completed [address], [address], 12/01/2023 17:28:22 11/16/2023 US, doppler echocardiogram completed [facility] Information not available 12/03/2023 18:04:38 11/16/2023 trans-thoracic echocardiogram (TTE) (PROC) completed [facility] Information not available 12/10/2023 10:28:26 02/17/2024 XR, chest, 2 view completed [address], [address], 02/22/2024 08:16:28 Procedure Notes None recorded. Medical [...] Updated DateTime 12/16/2022 177.8 cm Jayde Messer [facility] 12/16/2022 09:50:58 Date Recorded Body mass index (BMI) Body weight Provider Name and Address Organization Details Last Updated DateTime 12/16/2022 34.5 kg/m2 440394.97 g Jayde Messer [facility] 1 09:56:03 Date Recorded Oxygen saturation Oxygen saturation in Arterial blood by Pulse oximetry Provider Name and Address Organization Details Last Updated DateTime 12/16/2022 98 % 98 % Jayde Messer [place] [facility] [place] 12/16/2022 09:56:29 Date Recorded Heart rate Provider Name an d Address Organization Details Last Updated DateTime 12/16/2022 89 /min Jayde Messer [facility] 12/16/2022 09:56:32 Date Recorded Respiratory rate Provider Name a nd Address Organization Details Last Updated DateTime 12/16/2022 18 /min [facility]UEL[facility] Attn: Accounting,[address] [place], [address], [place] - [place] 12/16/2022 10:00:04 Date Recorded Body [...] DateTime 05/25/2023 114 /min Aileen Boyer MA [facility] 14:05:27 Date Recorded Respiratory rate Provider Name a nd Address Organization Details Last Updated DateTime 05/25/2023 20 /min Aileen Boyer [place] [facility] 14:05:30 Date Recorded Body mass index (BMI) Body weight Provider Name and Address Organization Details Last Updated DateTime 05/26/2023 36.4 kg/m2 676132.67 g [facility] Attn: Accounting,[address] [place], [address], [place] [facility] 05/26/2023 11:50:16 Date Recorded Heart rate Provider Name an d Address Organization Details Last Updated DateTime 05/26/2023 85 /min EFRAÍN BANUELOS Attn: Accounting,[address] [place], [address], [place] [facility] 05/26/2023 11:50:26 Date Recorded Body height Provider Name an d Address Organization Details Last Updated DateTime 06/29/2023 177.8 cm Aileen Boyer MA [place] - [facility] 13:59:33 Date Recorded Oxygen saturation Oxygen saturation in Arterial blood by Pulse oximetry Provider Name and Address Organization Details Last Updated DateTime 06/29/2023 97 % 97 % Aileen Boyer MA [place] [facility] 06/29/2023 13:59:48 Date Recorded Heart rate Provider Name an d Address Organization Details Last Updated DateTime 06/29/2023 94 /min PATRICE Rodas - [facility] 13:59:51 Date Recorded Respiratory rate Provider Name a nd Address Organization Details Last Updated DateTime 06/29/2023 18 /min Aileen Boyer MA [place] [facility] 13:59:54 Date Recorded Body mass index (BMI) Body weight Provider Name and Address Organization Details Last Updated DateTime 06/29/2023 35 kg/m2 243202.94 g EFRAÍN BANUELOS Attn: Accounting,[address] [place], [address], [place] [facility] 06/29/2023 14:29:27 Date Recorded Body height Provider Name an d Address Organization Details Last Updated DateTime 09/28/2023 177.8 cm Lizeth Goel MA [facility] 4 11:13:58 Date Recorded Oxygen saturation Oxygen saturation in Arterial blood by Pulse oximetry Provider Name and Address Organization Details Last Updated DateTime 09/28/2023 100 % 100 % Lizeth Goel MA [facility] 09/28/2023 11:14:22 Date Recorded Heart rate Provider Name an d Address Organization Details Last Updated DateTime 09/28/2023 86 /min Lizeth Goel MA [facility] 11:14:29 Date Recorded Respiratory rate Provider Name a nd Address Organization Details Last Updated DateTime 09/28/2023 18 /min Lizeth Goel MA [facility] 11:14:32 Date Recorded Systolic blood pressure Diastolic blood pressure Provider Name and Address Organization Details Last Updated DateTime 12/16/2022 142 mm[Hg] 80 mm[Hg] Jayde Ayde [facility] 12/16/2022 09:57:53 Date Recorded Systolic blood pressure Diastolic blood pressure Provider Name and Address Organization Details Last Updated DateTime 05/25/2023 123 mm[Hg] 71 mm[Hg] Aileen Boyer MA [facility] 05/25/2023 14:05:15 Date Recorded Systolic blood pressure Diastolic blood pressure Provider Name and Address Organization Details Last Updated DateTime 06/29/2023 132 mm[Hg] 75 mm[Hg] Aileen Boyer MA [facility] 06/29/2023 13:59:40 Date Recorded Systolic blood pressure Diastolic blood pressure Provider Name and Address Organization Details Last Updated DateTime 09/28/2023 139 mm[Hg] 87 mm[Hg] Lizeth Goel MA [facility] 09/28/2023 11:14:14 Date Recorded Systolic blood pressure Diastolic blood pressure Provider Name and Address Organization Details Last Updated DateTime 09/28/2023 130 mm[Hg] 80 mm[Hg] EFRAÍN BANUELOS Attn: Accounting,[address] [facility], [place], [address], [facility] 09/28/2023 12:17:46 Social History Question Answer Notes LastModified by Organizat ion Details LastModified Time Tobacco Smoking Status Former Smoker Quit 2006 Leeann Lamb MA null, [facility] 08/02/2019 10:20:41 Do You Have An Advance Directive? No Information not available 05/28/2021 What Is Your Level Of Alcohol Consumption? Occasional [email or web address] Information not available 12/31/2020 Are You Blind Or Do You Have Difficulty Seeing? No [email or web address] Information not available 12/31/2020 What Is Your Level Of Caffeine Consumption? Moderate [email or web address] Information not available 12/31/2020 How Much Tobacco [...] available 08/23/2020 Are You Currently Employed? No [email or web address] Information not available 12/31/2020 Are You Deaf Or Do You Have Serious Difficulty Hearing? No Information not available 12/31/2020 What Type Of Diet Are You Following? REGULAR [email or web address] Information not available 12/31/2020 Which Illicit Or [...] Seat Belt Or Car Seat Routinely? Yes [email or web address] Information not available 12/31/2020 Are You Sexually [...] Anxious, Or Unable To Sleep At Night)? [id number] [email or web address] Information not available 12/31/2020 Do You Use [...] you able to care for yourself? Yes [email or web address] Information not available 12/31/2020 What is your exercise level? Occasional [email or web address] Information not available 12/31/2020 Mental Status None [...] Eating Disorder Y Anemia N Heart Attack (DE) N Anxiety Disorder N Diabetes Y Muscle, [...] influenza, unspecified formulation 0 completed Not Available [facility] 09/04/2020 02:23:16 pneumococcal, unspecified formulation 0 completed Not Available [facility] 09/04/2020 02:23:16 COVID-19, mRNA, LNP-S, PF, 100 mcg/0.5mL dose or 50 mcg/0.25mL dose 1 completed Not Available [facility] 09/04/2020 02:23:16 COVID-19, mRNA, LNP-S, PF, 100 mcg/0.5mL dose or 50 mcg/0.25mL dose 1 completed Not Available [facility] 09/04/2020 02:23:16 COVID-19, mRNA, LNP-S, PF, 100 mcg/0.5mL dose or 50 mcg/0.25mL dose 1 completed Jayde [place]andall, [place] - [facility] 01/13/2021 14:35:36 Influenza, high-dose, quadrivalent, PF 3 completed EFRAÍN BANUELOS Attn: Accounting,[address], [place], [address], [facility] - [facility] 12/17/2022 11:57:25 Past Encounters Encounter ID Performer Location Encounter Start Date Encounter Closed Date Diagnosis/Indication Diagnosis SNOMED-CT Code Diagnosis ICD10 Code Diagnosis Note [id number] Lisa German MD [facility] [address] [place] [address] 03/03/2019 15:02:46 03/06/2019 14:38:15 Type 2 diabetes mellitus 04241722 E11.22 did not do well with metformin due to diarrhea; has had urinary incontinen ce with invokana. A1C is 12.7 History of kidney disease 721336590 Z87.448 related to antibiotic s for foot infection. Has reportedly improved renal function. Pain in ri ght sacroiliac joint 2659094780 8914572 M53.3 Adult heal th examination 699797192 Z00.00 Mixed hyperlipidemia 267 330772 E78.2 Screening mammography 24 121425 Z12.31 Screening colonoscopy 44 1747146 Z12.11 [id number] Lisa German MD [facility] [address] [place] [address] 06/20/2019 17:26:47 06/21/2019 13:50:19 Diabetes mellitus 45602070 E11.9 Dysuria 52317702 R30.9 [id number] Lisa German MD [facility] [address] [place] [address] 08/02/2019 09:35:45 08/03/2019 20:55:20 Chronic urinary tract infection 087492417 N39.0 I will call in ciprofloxa sabi while awaiting the final culture report. [id number] Lisa German MD [facility] [address] [place] [address] 09/07/2019 09:38:42 09/11/2019 15:20:09 Diabetic peripheral neuropathy 161975982 E11.40 will need to wear protective shoes, and needs diabetic shoes. Type 2 kiki betes mellitus 61290799 E11.22 did not do well with metformin due to diarrhea; has had urinary incontinen ce with invokana. A1C is 12.7 Low back p ain co-occurrent with neuralgia of right sciatic nerve 6284499280 45601 M54.41 [id number] Lisa German MD [facility] [address] [place] [address] 04/11/2020 08:11:11 04/15/2020 07:31:18 Lumbar spondylosis 567486341 M47.896 Type 2 kiki vincent mellitus 18468954 E11.22 did not do well with metformin due to diarrhea; has had urinary incontinen ce with invokana. A1C is 12.7 [id number] Lisa German MD [facility] [address] [place] [address] 08/23/2020 13:25:06 09/02/2020 06:57:57 Urinary tract infectious disease 24352707 N39.0 needs follow up UA in 2-3 weeks to confirm cure. [id number] Jayde Messer [facility] [address] [place] [address] 08/23/2020 14:18:22 08/24/2020 08:52:57 Urinary tract infectious disease 10828690 N39.0 [id number] EFRAÍN BANUELOS [facility] [address] [place] [address] 12/31/2020 13:52:25 01/01/2021 09:33:18 Coronary arteriosclerosis 27332183 I25.10 refill Gastroesop hageal reflux disease 085708305 K21.9 refill Essential hypertension 24024976 I10 BP 134/82 todaycombo lisinopril /HCTZ made her feel dizzytrial lisinopril 20 Diabetes mellitus 290879 09 E11.9 reports non-compli ance the last [...] counseling /medicatio n--pt denied at this time [id number] EFRAÍN BANUELOS [facility] [address] [place] [address] 05/28/2021 10:05:31 05/29/2021 08:07:55 Essential hypertension 51589919 I10 05/28/21:BP 142/82incr ease lisinopril 40 12/2020:BP 134/82 todaycombo lisinopril /HCTZ made her feel dizzytrial lisinopril 20 Diabetes mellitus 039953 09 E11.9 05/28/21:kait tesfaye glucose tabs at night for hypoglycem ia, BS 60-65insul in 40 units at night instead of 63 units30 units BID w/ mealspost prandial 250-300doe sn't take fasting BS fidel often- 145, 150stopped januvia- gave me overwhelmi ng feeling that I was hungry constantly , wasn't helping BSre-check [id number] to endocrineD M eye exam at [facility], last exam 2018, encouraged to scheduleDM foot [...] time Screening for malignant neoplasm of colon 235644907 Z12.11 takes stool softeners PRNlast colonoscop y 10 yrs agobowel movements TIDGI referral [id number] EFRAÍN BANUELOS [facility] [address] [place] [address] 11/05/2021 16:45:58 11/06/2021 12:58:20 Hospital inpatient stay within past 30 days [id number] 106 Z76.89 11/05/21: 09/30/21: US arterial brachial [...] CR 2.2, eGFR 22, K 3.3, BNP 24078/03/05 2: [place] Dr. Yana Amato removed R 4th toe due to osteomyeli tis, has f/u once a week 2: has appt with Nephrology due to CKD 4 Only have imaging reports from [facility] for IV abx- Vancomycin , has PICC line until the end octoberF/u after podiatry releases pt, will send to Physical Therapy, pt reports her strength has decreased due to hospital stayf/u in 1 wk to check BMP, last dose of potassium 20 mEq yesterdat Diabetes mellitus 215112 09 E11.9 11/05/21:bernard huerta with endocrine, Dr. Ana Langleytook her off of metformin, glimepirid e and ozempicon tresiba and novolog 6 units [facility]IDhave [facility]- [facility]- until the [...] was hungry constantly , wasn't helping BSre-check [id number] to endocrineD M eye exam at [facility], last exam 2018, encouraged to scheduleDM foot [...] exam + DM foot exam Essential hypertension 25181561 I10 11/05/21: started amlodipine 2.5 mghas script of lisinopril 40, has not been takingBP controlled today 130/78f/u if BP at home >130/80 05/28/21:BP 142/82incr ease lisinopril 40 12/2020:BP 134/82 todaycombo lisinopril /HCTZ made her feel dizzytrial lisinopril 20 Swelling o f bilateral lower limbs 732500815 M79.89 1+ pitting edema to BLEBNP 7190was on script of lasix for 7 days after hospitalre -start lasix 20 mgunknown echo or cardio consult in hospital stayfuture referral to cardio [id number] EFRAÍN BANUELOS [facility] [address] [place] [address] 01/19/2022 12:27:38 01/20/2022 11:48:09 Hypokalemia 63049133 E87.6 pt would like potassium re-checked stopped potassium supplement Diabetes mellitus 975103 09 E11.9 01/19/22:lo st 20 lbs by walking and diet changeshas not establishe d with new endocrine provider yethas contact info for [employer] [facility] in [place], rec'd by patient's sistertres iba 32 units [...] close f/u 06/04/21: hgb a1c 11.1 05/28/21:ta biren glucose tabs at night for hypoglycem ia, BS 60-65insul in 40 units at night instead of 63 units30 units BID w/ mealspost prandial 250-300doe sn't take fasting BS fidel often- 145, 150stopped januvia- gave me overwhelmi ng feeling that I was hungry constantly , wasn't helping BSre-check [id number] to endocrineD M eye exam at [facility], last exam 2018, encouraged to scheduleDM foot [...] exam Swelling o f bilateral lower limbs 346071979 M79.89 01/19/22:sa delilah Lyn on 11/12/21: v [...] hospital stayfuture referral to cardio Essential hypertension 19402523 I10 01/19/22:BP 148/96, 142/72took lisinopril 40did not take amlodipine 2.5 mg, out of scriptrefi ll 11/05/21: started amlodipine 2.5 mghas script of lisinopril 40, has not been takingBP controlled today 130/78f/u if BP at home >130/80 05/28/21:BP 142/82incr ease lisinopril 40 12/2020:BP 134/82 todaycombo lisinopril /HCTZ made her feel dizzytrial lisinopril 20 Generalize d anxiety disorder 30171263 F41.1 01/19/22:di fficulty sleeping at night, tossing and turningwou ld like to increase dose of hydroxyzin eincrease from 25 TID to 50 TID 11/05/21:sh e is having anxiety everyday and difficulty sleeping at night, discussed buspar vs hydroxyzin e, will trial hydroxyzin e Screening for malignant neoplasm of breast 044639008 Z12.39 due for mammo Loss of hair 133201299 L 65.9 x10 yrslosing hair, shedding with brushing hair, worse to top of scalpnon-s carringche ck thyroid and vitamins Chronic ki dney disease stage 4 [address]295701 N18[address] Guardado nephbennie 11/26/21: DM, HTN, and vascular disease cause of CKD, due to nephrotic range proteinuri a and worsening Cr obtain kidney US, increase lasix to 40 mgL kidney biopsy showed acute tubular injury, nodular diabetic glomerulos clerosis class III History of osteomyelitis 711550970 Z87.39 10/2021 removed R 4th and 5th toesfollow ing with podiatrygo es to wound care in [place] once a week, prepping for skin graft to lateral R foot [id number] EFRAÍN BANUELOS [facility] [address] [place] [address] 02/26/2022 13:03:32 03/02/2022 14:30:41 Acute urinary tract infection 320623735 N39.0 unsure of pt's kidney function, can't use macrobid with low GFR, pt's GFR from Apr 2020 was <50 [id number] Adela Aguilera CMA [facility] [address] [place] [address] 03/31/2022 14:56:16 04/09/2022 10:03:00 Dysuria 62702127 R30.0 [id number] EFRAÍN BANUELOS [facility] [address] [place] [address] 05/21/2022 13:43:58 05/21/2022 14:53:41 History of recurrent urinary tract infection 869334049 Z87.440 pt self caths 5x/dayhosp italized for UTI 04/2022refe r to urology Hypocalcemia 3924226 E83 .51 Ca 7.6 inpatientw ill re-check Screening for malignant neoplasm of colon 444257241 Z12.11 due for colonoscop y Screening for malignant neoplasm of breast 988749195 Z12.39 due for mammohas order and will schedule Generalize d anxiety disorder 86948737 F41.1 05/21/22:dif ficulty sleeping at nighttakin g [...] e, will trial hydroxyzin e Coronary arteriosclerosis 96007138 I25.10 refill Depression screening 171 149479 Z13.31 05/21/22:PHQ 10attribut es to multiple health [...] n eliquis Acute urin lauren tract infection 066048056 N39.0 05/21/22:c/o lower abdominal pressure x1 daynoticed [...] pt's GFR from Apr 2020 was <50 [id number] EFRAÍN BANUELOS [facility] [address] [place] [address] 12/08/2022 15:11:44 12/08/2022 15:41:06 Acute urinary tract infection 341519356 N39.0 05/21/22:c/o lower abdominal pressure x1 daynoticed [...] pt's GFR from Apr 2020 was <50 [id number] EFRAÍN BANUELOS [facility] [address] [place] [address] 12/16/2022 09:43:56 12/16/2022 10:33:10 Depression screening 665161605 Z13.31 12/16/22:PH Q 12lost 5 toes due [...] this time Administra tion of influenza vaccine 62363050 Z23 Screening for malignant neoplasm of breast 891004555 Z12.39 due for mammohas order and will schedule Screening for malignant neoplasm of cervix 342381072 Z12.4 declines screening at this time Screening for malignant neoplasm of colon 117833191 Z12.11 due for colonoscop ydeclines screening at this time Obesity 556078991 E66.9 routine labs Acute urin lauren tract infection 869467175 N39.0 12/16/22:cu lture grew citrobacte r freundii [...] 2020 was <50 Right side sciatica 3202 991950 29048 M54.31 difficulty walking due to painencour aged stretching and PTtrial gabapentin , advised of ADR Uncontroll ed type 2 diabetes mellitus 904262116 E11.65 12/16/22:fo llowing with endocrine, last a1c 9.5non healing wound on R foot, following with wound [id number], 3rd, 4th, and 5th toes removed on [...] new endocrine provider yethas contact info for [employer] [facility] in [place], rec'd by patient's sistertres iba 32 units [...] was hungry constantly , wasn't helping BSre-check [id number] to endocrineD M eye exam at [facility], last exam 2018, encouraged to scheduleDM foot [...] foot exam Chronic ulcer of foot 42 4606655 L97.509 c/o bilateral leg weaknessfo llowing with wound care for R foot/chron ic wounds from diabetes with multiple toes removed. Unable to put full weight on R foot and states that her legs are weakoffere d PT referral, pt declinedre questing leg compressio n machine- unable to order due to coverage and no indication since pt is not hospitaliz ed/risk of DVT [id number] Aileen Boyer MA [facility] [address] [place] [address] 04/14/2023 11:59:56 04/14/2023 12:18:54 [id number] EFRAÍN BANUELOS [facility] [address] [place] [address] 05/25/2023 14:01:25 05/25/2023 14:41:31 Uncontrolled type 2 diabetes mellitus 658494675 E11.65 05/25/23: a1c 9.6followi ng with endocrine 12/16/22:fo llowing with endocrine, last a1c 9.5non healing wound on R foot, following with wound [id number], 3rd, 4th, and 5th toes removed on [...] new endocrine provider yethas contact info for [employer] [facility] in [place], rec'd by patient's sistertres iba 32 units [...] was hungry constantly , wasn't helping BSre-check [id number] to endocrineD M eye exam at [facility], last exam 2018, encouraged to scheduleDM foot [...] + DM foot exam Itching of skin 35727165 0 L29.9 stop OTC creamsc/w hydroxyzin e 50 TIDtrial claritinta brien famotidine 40, advised to increase to 80 mg Infestatio n by Sarcoptes scabiei lois hominis 205759492 B86 varying stages of circular scabs to bilateral UE and upper backunknow n if true scabies diagnosis, will r/o if treatment does not improve sxadvised pt to f/u in 1 wk if no improvemen t, will send topical steroid cream Abscess of skin and/or subcutaneous tissue 83856811 L02.91 L axillaI&D successful advised pt to wash tonight, leave open to allow drainagedi d not start pt on abx, limited options due to CKDf/u in 1 wk with increased pain/redne ss/swellin g Depression screening 171 114580 Z13.31 05/25/23: PHQ 6 12/16/22:PH Q 12lost [...] counseling /medicatio n--pt denied at this time [id number] EFRAÍN BANUELOS [facility] [address] [place] [address] 06/29/2023 13:51:40 06/29/2023 14:37:00 Depression screening 894592221 Z13.31 06/29/23: PHQ 14states that everyone around [...] denied at this time Itching of skin 75874509 0 L29.9 06/29/23: still itching at night, taking famotidine 80 mg and hydroxyzin e TIDno improvemen t with permethrin PEx- varying stages of circular scabs/open red sores to bilateral UE and upper backtrial triamcinol one, refer to derm 05/25/23:st op OTC creamsc/w hydroxyzin e 50 TIDtrial claritinta brien famotidine 40, advised to increase to 80 mg Infestatio n by Sarcoptes scabiei lois hominis 575301167 B86 06/29/23:us ed permethrin 2x without reliefwash ed all bedding and clothesgiv en topical cream from ED w/o relief 05/25/23:va rying stages of circular scabs to bilateral UE and upper backunknow n if true scabies diagnosis, will r/o if treatment does not improve sxadvised pt to f/u in 1 wk if no improvemen t, will send topical steroid cream Generalize d anxiety disorder 87945771 F41.1 06/29/23: refill 05/21/22:dif ficulty sleeping at [...] e, will trial hydroxyzin e Chronic urticaria 423389 05 L50.8 refer to derm Recurrent urinary tract infection 928902875 N39.0 06/29/23: has urology appt in 2 days 03/13/22:f inished course and is still having symptoms with urinary pressuretr ial cefuroxime , susceptibl e 03/05/22:p t's urine grew klebsiella pneumoniae , would like to start on abx to treat UTIPT returned call about results. Advised of above results. PT states she went to [facility] a couple days after appt for UTI sx they put her on cefdinir 300mg 1 tab every 12 hours 1 wk. PT states she still has no relief she is on day 3 [id number] EFRAÍN BANUELOS [facility] [address] [place] [address] 09/28/2023 11:10:21 09/28/2023 11:59:48 Amputated right lower limb below knee 229472336 Z89.511 Presented with right foot pain and [...] course of antibiotic s for 14 days. [facility] hospital bed, bed trapeze, outpatient PT, new wheelchair following with [facility] clinic for prosthetic Pt requires reposition ing in ways not feasible with an ordinary bed to alleviate pain and requires frequent changes in body position Hypothyroidism 95901139 E03.9 refill meds Retention of urine 29053 4002 R33.9 x10 yrs of self cathhad appt with urology but missed it due to hospital admission, needs new referralur ine dip showed mod leuks, positive nitritewil l send for culture, pending abx due to pt's kidney function and h/o severe UTIs Uncontroll ed type 2 diabetes mellitus 836020552 E11.65 09/28/23: pt has not seen endocrine since dischargee ncouraged to make f/u appt 05/25/23: a1c 9.6followi ng with endocrine 12/16/22:fo llowing with endocrine, last a1c 9.5non healing wound on R foot, following with wound [id number], 3rd, 4th, and 5th toes removed on [...] new endocrine provider yethas contact info for [employer] [facility] [place], rec'd by patient's sistertres [...] was hungry constantly , wasn't helping BSre-check [id number] to endocrineD M eye exam at [facility], last exam 2018, encouraged to scheduleDM foot [...] RTC in 3 mo Depression screening 171 903532 Z13.31 09/28/23: PHQ 3daughter encouraged pt talk [...] Clark Member ID Guarantor Name 12/16/2022 1 [facility] (MEDICARE REPLACEMENT/A DVANTAGE - HMO) [id number] Kylie L Ahart [id number] Kylie Ahart 04/14/2023 1 [facility] (MEDICARE REPLACEMENT/A DVANTAGE - HMO) [id number] Kylie L Ahart [id number] Kylie Ahart 05/25/2023 1 [facility] (MEDICARE REPLACEMENT/A DVANTAGE - HMO) [id number] Kylie L Ahart [id number] Kylie Ahart 06/29/2023 1 [facility] (MEDICARE REPLACEMENT/A DVANTAGE - HMO) [id number] Kylie L Ahart [id number] Kylie Ahart 09/28/2023 1 [facility] (MEDICARE REPLACEMENT/A DVANTAGE - HMO) [id number] Kylie L Ahart [id number] Kylie Ahart Notes Date Note Type Note [...] her own. EFRAÍN BANUELOS Attn: Accounting,[address] [place], [address], [facility] 12/17/2022 12:08:28 05/25/2023 text/html [...] past week. EFRAÍN BANUELOS Attn: Accounting,[address] [place], [address], [facility] 05/26/2023 11:55:38 06/29/2023 text/html Pt presents for skin rash. Reports no improvement with permethrin wash, used 2x w/o relief. States that she can hardly sleep due to itching and had scabs/open sores on her back. She washed all of her bedding and clothing. Pt is following with podiatry and has upcoming urology appt this week. EFRAÍN BANUELOS Attn: Accounting, [address] [place], [address], [facility] - [facility] 06/30/2023 08:53:42 09/28/2023 text/html Pt presents for DME supplies and hospital f/u. Daughter is present. 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 She went to SNF for 21 days after discharge. She finished in home occupational and physical therapy. Pt is in contact with [facility] clinic for prosthesis. Requesting DME for bariatric commode, trapeze, new wheelchair with adjustable arms, and seat cushion. EFRAÍN BANUELOS Attn: Accounting, [address] [place], [address], [facility] 10/19/2023 13:55:45 OBGyn Episode No OBEpisode recorded.
--- OUTSIDE RECORDS SUMMARY | 2024-04-14 15:40 | XMS_ITS | Clinical Summary ---
Author Organization [facility] main Address [address] [place] [address] Phone Care Team Providers Care Spindle Tester Name Role Phone Teressa De Jesus Primary Care Provider [phone] Allergies Active Allergy Reactions Criticality Noted Date [...] (11/25/2021): Added automatically from request for surgery [id number] Ulcer of toe 10/10/2021 Overview (11/25/2021): Added automatically from request for surgery [id number] Type II diabetes mellitus uncontrolled 2 Acute diastolic congestive heart failure 022 Stage 3a chronic kidney disease 09/03/2020 Polyneuropathy due to type 2 diabetes mellitus 0 09/27/2019 Overview (05/20/2020): Added automatically from request for surgery [id number] History of coronary artery bypass grafting 03/29 [...] Vaccine (#1) 2023 01/27/2017, 2016 Care Teams Spindle Tester Relationship Specialty Start Date End Date Teressa De Jesus PA [address] [place] [address] PCP - General Family Medicine 06/25/21
--- OUTSIDE RECORDS SUMMARY | 2024-04-14 15:40 | XMS_ITS | Continuity of Care Document ---
Author Organization [facility] Address [address] [place] [address] [facility] [address] [place] [address] Phone Care Team Providers Care Industrial Tractor Driver Name Role Phone Arron Gutiérrez Unavailable Unavailable Procedures Procedure Date Eye Exam Established Pt IOLMaster Eye Exam & Treatment Advance Directives Directive Yes / No Effective Date File Name No Information Encounters Encounter Description Practice Location Reason(s) For Visit Diagnoses Date Provider Providers Copied on Encounter [facility], [id number] [place] [address] [address], [place], [place], [id number], [place] tel:[phone] [facility] No Information [address] Marla Heller. [address], [address], [place]. tel:[phone] Referring Provider: Alok Fortune [address] [place], [address] . tel:[phone] [facility], [address] [place] [address] [address], [place], [place], [id number], [place] tel:[phone] [facility] No Information [address] Lisa Dickinson. [address] [facility] [place], [id number], [place]. tel:[phone] Family History Family Member Type Diagnosis Age At Onset No Information Payers Payer name Insurance type Covered libertarian ID Yaron jones(s) [employer] [facility] [id number] Social History Type Description Quantity Date Captured [...]
--- OUTSIDE RECORDS SUMMARY | 2024-04-14 15:41 | XMS_ITS | Referral Summary ---
Author Organization [facility] Office Building [facility] Address [address] [place] [address] Care Team Providers Care Carpenter Mate Name Role Phone Teressa De Jesus Primary Care Provider [phone] Teressa De Jesus Unavailable [phone] Hien Amato DPM Unavailable [phone] Encounters Date Type Department Care Team Description 03/13/2024 Telephone [facility] Medical [facility] Diabetes Endocrine Care at [address] [address] Yasemin Gunn, ECHO 02/29/2024 Orders Only [facility] Diabetes Endocrine Care at [address] [address] Yasemin Gunn, ECHO Type 2 diabetes mellitus with hyperglycemia, with long-term current use of insulin (HCC) (Primary Dx) 02/29/2024 Telephone [facility] Diabetes Endocrine Care at [address] [address] Yasemin Gunn, ECHO 01/28/2024 Telephone [facility] Diabetes Endocrine Care at [address] [address] Yasemin Gunn, PERMANENT MOLD SUPERVISOR from Last 3 Months Allergies Active Allergy Reactions Criticality Noted Date Comments Semaglutide Nausea & Vomiting Low 03/18/2022 Vfanwuz-Ems-Qfc Reductase Inhibitors Muscle pain Medium 09/03/2020 Medications [...] 1 tablet (125 mcg total) by mouth child care before breakfast 90 tablet 3 12/17/19 Active [...] 2 (two) times a day 60 tablet 11 03/10/20 24 025 Active Active Problems Problem Noted Date Diagnosed [...] 07/07/2022 Assessment & Plan (02/17/2023 3:44 PM LEGAL CONTRACTS SPECIALIST): Continuous glucose monitor (cgm) applied from 02/04/2023 [...] sugar 222. Chronic diastolic congestive heart failure ([facility]/ HCC) 03/24/2022 Acquired hypothyroidism 03/18/2022 Assessment & [...] T4 Assessment & Plan (03/31/2022 3:47 PM LEGAL CONTRACTS SPECIALIST): This is a chronic condition which is [...] 8weeks, Assessment & Plan (03/18/2022 3:34 PM LEGAL CONTRACTS SPECIALIST): This is a chronic condition which is [...] disease invo lving coronary bypass graft of nondalton heart without angina pectoris 11/12/2021 Ulcer of toe of right foot, with necrosis of mus kendell 10/10/2021 Overview (10/10/2021): Added automatically from request for surgery [id number] Acute osteomyelitis of right ankle or foot 10/10 Overview (10/10/2021): Added automatically from request for surgery [id number] Acute diastolic congestive heart failure (CMS/HC C) 07/23/2021 On continuous oral anticoagulation 02/12/2021 Diabetic polyneuropathy asso ciated with type 2 diabetes mellitus ([facility]) 09/27/2019 Overview (09/27/2019): Added automatically from request for surgery [id number] Persistent atrial fibrillation 03/29/2019 Hx of CABG 03/29/2019 Stem cell donor 03/22/2019 Class 1 obesity due to exces s calories with serious comorbidity and body mass index (BMI) of 34.0 to 34.9 in adult 02/24/2017 Assessment & Plan (02/17/2023 3:43 PM LEGAL CONTRACTS SPECIALIST): This is a chronic condition which has [...] ordered Assessment & Plan (03/31/2022 3:47 PM LEGAL CONTRACTS SPECIALIST): This is a chronic condition which is improving 6 lb weight loss since last office visit Encourage continuing weight loss Has appointment to see dietitian in the next 2 weeks Assessment & Plan (03/18/2022 3:35 PM LEGAL CONTRACTS SPECIALIST): This is a chronic condition which is improving Encourage continue weight loss Follow with hospital educator/nutritional counseling Assessment & Plan (04/13/2017 1:54 PM LEGAL CONTRACTS SPECIALIST): Continue to follow plan per Rd. Exercise limited Assessment & Plan (02/24/2017 3:58 PM LEGAL CONTRACTS SPECIALIST): Current BMI includes ortho boot therefor not reliable. Agree with follow up with RD Proteinuria 09/10/2014 Overview (06/18/2016): Proteinuria Former smoker 09/10/2014 Overview (06/18/2016): Former smoker Coronary artery disease invo lving nondalton coronary artery of nondalton heart without angina pectoris 09/10/2014 Overview (06/18/2016): CAD - Coronary artery disease Type 2 diabetes mellitus wit h hyperglycemia, with long-term current use of insulin 06/07/2013 Overview (06/18/2016): DMII WO CMP UNCNTRLD Assessment & Plan (02/17/2023 3:43 PM LEGAL CONTRACTS SPECIALIST): This is a chronic condition which is [...] atorvastatin Assessment & Plan (03/31/2022 3:46 PM LEGAL CONTRACTS SPECIALIST): This is a chronic condition which is [...] be sick Monitor blood sugar continuously with silkfredstyle Yesi 2 sensor. Encouraged annual eye exam. Monofilament foot exam completed. loss of protective senses. Open wound on right foot. Multiple amputated toes. History of osteomyelitis in foot Seen at [facility] Urine microalbumin/creatinine ratio - Pending. goal <30 treated with lisinopril. Continue to see Dr. White for nephrology at [facility] Personally reviewed CMP GFR- 35 Kidney function- abnormal Continue to see Dr. White for nephrology at [facility] B/P today- at goal of <140/90. continue amlodipine, lisinopril Personally reviewed lipid panel. Not at Goal of less than 70. Continue atorvastatin Ambulatory referral to [facility] hospital educator/nutritional counseling- has appointment in 2 weeks [...] time. Assessment & Plan (03/18/2022 3:22 PM LEGAL CONTRACTS SPECIALIST): This is a chronic condition which is [...] sugar 4 times a day. Continuously with silkfredstyle Yesi 2 sensor. Encouraged annual eye exam. Monofilament foot exam completed. loss of protective senses. Open wound on right foot. Multiple amputated toes. History of osteomyelitis in foot Seen at [facility] Urine microalbumin/creatinine ratio - Pending. goal <30 treated with lisinopril. Continue to see Dr. White for nephrology at [facility] Personally reviewed CMP GFR- 35 Kidney function- abnormal Continue to see Dr. White for nephrology at [facility] B/P today- at goal of <140/90. continue amlodipine, lisinopril Personally reviewed lipid panel. Not at Goal of less than 70. Continue atorvastatin Ambulatory referral to [facility] hospital educator/nutritional counseling Assessment & Plan (04/13/2017 1:51 PM LEGAL CONTRACTS SPECIALIST): Being more consistent with carb intake and using specific insulin plan now. Will not recommend any changes today as hypoglycemia is stable now and control is complicated by hyperbaric treatment and now potential for abdominal issues. Send in sugars weekly so that trends can be evaluated and insulin adjusted. Follow up 2 months. Assessment & Plan (02/24/2017 4:02 PM LEGAL CONTRACTS SPECIALIST): A1c 8.9. Without specific BG to evaluate [...] amount at every meal. Follow up with department of mathematics chair as scheduled Avoid juice. Essential hypertension 01/11/2013 Overview (06/18/2016): HYPERTENSION NOS Assessment & Plan (02/17/2023 3:45 PM LEGAL CONTRACTS SPECIALIST): This is a chronic condition which is [...] prescribed. Assessment & Plan (04/13/2017 1:55 PM LEGAL CONTRACTS SPECIALIST): Controlled on current medications. Assessment & Plan (02/24/2017 3:58 PM LEGAL CONTRACTS SPECIALIST): Controlled on current medications. Pure hypercholesterolemia 01/11/2013 Overview (06/18/2016): PURE HYPERCHOLESTEROLEM Assessment & Plan (04/13/2017 1:55 PM LEGAL CONTRACTS SPECIALIST): Check lipid panel next OV Assessment & Plan (02/24/2017 3:58 PM LEGAL CONTRACTS SPECIALIST): Continue statin. Check labs next OV Resolved [...] drink = 0.6 oz pur e alcohol) [facility] Utilities Answer Date Recorded In the past 12 months has e [employer], gas, oil, or water [employer] threatened to shut off services in your [...] often do you attend chur ch or gnosticist services? Never 07/27/2023 Do you belong to any clubs o r organizations such as pentecostal groups, unions, fraternal or athletic groups, or [...] place to sleep or slept in a long term (including now)? No 07/27/2023 Personal Safety Answer Date Recorded Have you ever been in or are you currently in a harmful physical or emotional relationship or is someone making you feel afraid or unsafe? Denies 07/26/2023 Comments No Sex and Gender Information Value Date Recorded Sex Assigned at Not on file Legal Sex Female 11:59 PM LEGAL CONTRACTS SPECIALIST Gender Identity Not on file Sexual [...] on file Medical Devices Implanted Type Area [employer] Device Identifier Shelf Expiration Date Model / Serial / Lot Cordmandi Mynxgrip 6-7fr Balloon Catheter Integrate Sealant Lock Latex Free [id number] - [id number] Implanted:Qty: 1 on 01/07/2023 by Hernando Narayanan MD at [facility] 10/12/2024 [id number] / / [id number] Procedures Procedure Name Priority Date/Time Associated Diagnosis Comments EGFR Routine 08/05/2023 6:11 AM CDT DIABETIC EYE EXAM Routine 01/14/2023 POCT HEMOGLOBIN A1C Routine 01/06/2023 2 :37 PM CDT Type 2 diabetes mellitus with hyperglycemia, with long-term current use of insulin ([facility]/HCC) ([facility]) LIPID PANEL Routine 03/18/2022 10:11 AM LEGAL CONTRACTS SPECIALIST Uncontrolled type 2 diabetes mellitus with hyperglycemia, with long-term current use of insulin ([facility]) ALBUMIN CREATININE RATIO, URINE Routine 03/18/2022 10:11 AM LEGAL CONTRACTS SPECIALIST Uncontrolled type 2 diabetes mellitus with hyperglycemia, with long-term current use of insulin ([facility]) from Last 3 Months or Most [...] BLOOD ORDERABLES Final Resu lt GINA WATTS ([place]) [address] [facility] of [facility] [place], [place] [id number] * (ABNORMAL) Diabetic Eye Exam (01/14/2023) Historical Provider HEALTH MAINTENANCE Final Result * (ABNORMAL) POCT hemoglobin A1c (01/06/2023 2:37 PM CDT) Hemoglobin A1C, POC 10.6 % Blood 01/06/2023 2:37 PM CDT Yasemin Gunn NP POINT OF CARE TEST ORDERABLES F inal Result * (ABNORMAL) Albumin Creatinine Ratio, Urine (03/18/2022 10:11 AM LEGAL CONTRACTS SPECIALIST) Albumin Ur 2,136.5 mg/L [facility] ([place]) Comment: Interpretive Data No reference range established. Current interpretive data was last revised 2018. Testing performed by: [facility], [address] [place] [address], [place]., [address] Creatinine Ur 41.1 mg/dL [facility] ([place]) Comment: Interpretive Data No reference range established. Current interpretive data was last revised 2018. Testing performed by: [facility], [address] [place] [address], [place] [address] Albumin Creatinine Ratio, Ur 5,198(H) 1 - 29 mg/g [facility] ([place]) Comment:Testing performed by : [facility], [address] [place] [address], [place]., [address] Urine 03/18/2022 10:1 1 AM LEGAL CONTRACTS SPECIALIST 03/18/2022 9:27 PM LEGAL CONTRACTS SPECIALIST us Yasemin Gunn NP LAB URINE ORDERABLES Final Resu lt GINA WATTS ([place]) [address] [facility] [place] [address] * (ABNORMAL) Lipid panel (03/18/2022 10:11 AM LEGAL CONTRACTS SPECIALIST) Cholesterol 243(H) 30 - 199 mg/dL GINA [...] WATTS ([place]) Blood 03/18/2022 10:1 1 AM LEGAL CONTRACTS SPECIALIST 03/18/2022 1:33 PM LEGAL CONTRACTS SPECIALIST Narrative GINA WATTS ([place]) - 03/18/2022 2:08 PM LEGAL CONTRACTS SPECIALIST These lab test should be done fasting. This means do not eat or drink for at least 12 hours prior to getting your blood drawn. us Yasemin Gunn NP LAB BLOOD ORDERABLES Final Resu lt GINA WATTS ([place]) [address] [facility] [place] [address] from Last 3 Months or Most Recently Relevant to Health Maintenance Insurance MEDICARE SOLUTIONS [facility]IC[facility] MEDICARE SOLUTIONS MEDICARE * Guarantor: [facility] Account Type Relation to Patient Date of Phone Billing Address Donor Other MEDICARE Advance Directives For more information, please contact: [phone] * Full Code (Latest Code Status on File) Date Activated Date Inactivated Comments 07/27/2023 11:44 AM 08/05/2023 7:27 PM * Full Code Date Activated Date Inactivated Comments 01/07/2023 12:31 PM 01/07/2023 8:21 PM * Full Code Date Activated Date Inactivated Comments 10/31/2021 1:18 PM 10/31/2021 6:49 PM * Full Code Date Activated Date Inactivated Comments 04/28/2019 11:36 AM 04/28/2019 7:08 PM Care Teams Carpenter Mate Relationship Specialty Start Date End Date Teressa De Jesus PA [address] [place] [address] PCP - General Physician Tellers Supervisor 01/30/22 Teressa De Jesus PA [address] [place] [address] Physician Tellers Supervisor 01/30/22 Hien Amato DPM [address] [place] [address] Consulting Physician Foot and Ankle Surg 09/28/19
--- OUTSIDE RECORDS SUMMARY | 2024-04-14 15:41 | XMS_ITS | Clinical Summary ---
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 before breakfast 90 tablet 3 12/17/19 Active [...] a day 60 tablet 03/10/20 025 Active Active Problems Problem Noted Date Diagnosed Date Acute cystitis without hematuria 07/29/2023 Anemia of chronic disease 07/29/2023 Stage 3b chronic kidney disease 07/29/2023 GERD (gastroesophageal reflux disease) Gangrene of right foot ([facility]) 07/27/2023 Gangrene ([facility]) 07/07/2023 Ulcer of right heel, with necrosis of muscle Ulcer of right pretibial region, with fat layer exposed 07/07/2023 Skin ulcer of popliteal mónica on, left, with fat layer exposed 07/07/2023 Diabetic foot ulcer with osteomyelitis freestyle yesi 2 continuous glucose monitoring device 07/07/2022 Assessment & Plan (02/17/2023 3:44 PM CLARIFIER): Continuous glucose monitor (cgm) applied from 02/04/2023 [...] sugar 222. Chronic diastolic congestive heart failure ([facility]) 03/24/2022 Acquired hypothyroidism 03/18/2022 Assessment & Plan [...] T4 Assessment & Plan (03/31/2022 3:47 PM CLARIFIER): This is a chronic condition which is [...] 8weeks, Assessment & Plan (03/18/2022 3:34 PM CLARIFIER): This is a chronic condition which is [...] disease invo lving coronary bypass graft of elem heart without angina pectoris 11/12/2021 Ulcer of toe of right foot, with necrosis of mus kendell 10/10/2021 Overview (10/10/2021): Added automatically from request for surgery [id number] Acute osteomyelitis of right ankle or foot 10/10 Overview (10/10/2021): Added automatically from request for surgery [id number] Acute diastolic congestive heart failure (CMS/HC C) 07/23/2021 On continuous oral anticoagulation 02/12/2021 Diabetic polyneuropathy asso ciated with type 2 diabetes mellitus (CMS/[facility]) 09/27/2019 Overview (09/27/2019): Added automatically from request for surgery [id number] Persistent atrial fibrillation 03/29/2019 Hx of CABG 03/29/2019 Stem cell donor 03/22/2019 Class 1 obesity due to exces s calories with serious comorbidity and body mass index (BMI) of 34.0 to 34.9 in adult 02/24/2017 Assessment & Plan (02/17/2023 3:43 PM CLARIFIER): This is a chronic condition which has [...] ordered Assessment & Plan (03/31/2022 3:47 PM CLARIFIER): This is a chronic condition which is improving 6 lb weight loss since last office visit Encourage continuing weight loss Has appointment to see dietitian in the next 2 weeks Assessment & Plan (03/18/2022 3:35 PM CLARIFIER): This is a chronic condition which is improving Encourage continue weight loss Follow with big 6 dealer/nutritional counseling Assessment & Plan (04/13/2017 1:54 PM CLARIFIER): Continue to follow plan per Rd. Exercise limited Assessment & Plan (02/24/2017 3:58 PM CLARIFIER): Current BMI includes ortho boot therefor not reliable. Agree with follow up with RD Proteinuria 09/10/2014 Overview (06/18/2016): Proteinuria Former smoker 09/10/2014 Overview (06/18/2016): Former smoker Coronary artery disease invo lving elem coronary artery of elem heart without angina pectoris 09/10/2014 Overview (06/18/2016): CAD - Coronary artery disease Type 2 diabetes mellitus wit h hyperglycemia, with long-term current use of insulin 06/07/2013 Overview (06/18/2016): DMII WO CMP UNCNTRLD Assessment & Plan (02/17/2023 3:43 PM CLARIFIER): This is a chronic condition which is [...] atorvastatin Assessment & Plan (03/31/2022 3:46 PM CLARIFIER): This is a chronic condition which is [...] History of osteomyelitis in foot Seen at [facility] Urine microalbumin/creatinine ratio - Pending. goal <30 treated with lisinopril. Continue to see Dr. White for nephrology at [facility] Personally reviewed CMP GFR- 35 Kidney function- abnormal Continue to see Dr. Wihte for nephrology at [facility] B/P today- at goal of <140/90. continue amlodipine, lisinopril Personally reviewed lipid panel. Not at Goal of less than 70. Continue atorvastatin Ambulatory referral to [facility] big 6 dealer/nutritional counseling- has appointment in 2 weeks Continuous [...] time. Assessment & Plan (03/18/2022 3:22 PM CLARIFIER): This is a chronic condition which is [...] sugar 4 times a day. Continuously with [employer] Yesi 2 sensor. Encouraged annual eye exam. Monofilament foot exam completed. loss of protective senses. Open wound on right foot. Multiple amputated toes. History of osteomyelitis in foot Seen at [facility] Urine microalbumin/creatinine ratio - Pending. goal <30 treated with lisinopril. Continue to see Dr. White for nephrology at [facility] Personally reviewed CMP GFR- 35 Kidney function- abnormal Continue to see Dr. White for nephrology at [facility]/P today- at goal of <140/90. continue amlodipine, lisinopril Personally reviewed lipid panel. Not at Goal of less than 70. Continue atorvastatin Ambulatory referral to [facility] big 6 dealer/nutritional counseling Assessment & Plan (04/13/2017 1:51 PM CLARIFIER): Being more consistent with carb intake and using specific insulin plan now. Will not recommend any changes today as hypoglycemia is stable now and control is complicated by hyperbaric treatment and now potential for abdominal issues. Send in sugars weekly so that trends can be evaluated and insulin adjusted. Follow up 2 months. Assessment & Plan (02/24/2017 4:02 PM CLARIFIER): A1c 8.9. Without specific BG to evaluate [...] amount at every meal. Follow up with cashier office as scheduled Avoid juice. Essential hypertension 01/11/2013 Overview (06/18/2016): HYPERTENSION NOS Assessment & Plan (02/17/2023 3:45 PM CLARIFIER): This is a chronic condition which is [...] prescribed. Assessment & Plan (04/13/2017 1:55 PM CLARIFIER): Controlled on current medications. Assessment & Plan (02/24/2017 3:58 PM CLARIFIER): Controlled on current medications. Pure hypercholesterolemia 01/11/2013 Overview (06/18/2016): PURE HYPERCHOLESTEROLEM Assessment & Plan (04/13/2017 1:55 PM CLARIFIER): Check lipid panel next OV Assessment & Plan (02/24/2017 3:58 PM CLARIFIER): Continue statin. Check labs next OV Resolved Problems Problem Noted Date Diagnosed Date Resolved Date Type II diabetes mellitus uncontrolled 09/10/2014 03/18/2022 Overview (06/18/2016): Type II diabetes mellitus uncontrolled Diabetic neuropathy 09/10/2014 03/18/19 Overview (06/18/2016): Diabetic neuropathy Encounters Date Type Department Care Team Description 03/13/2024 Telephone [facility] at [address] [address] Yasemin Gunn NP 02/29/2024 Orders Only [facility] at [address] [address] Yasemin Gunn, ECHO Type 2 diabetes mellitus with hyperglycemia, with long-term current use of insulin (HCC) (Primary Dx) 02/29/2024 Telephone [facility] at [address] [address] Yasemin Gunn NP 01/28/2024 Telephone [facility] at [address] [address] Yasemin Gunn, ECHO from Last 3 Months Immunizations Name Administration [...] diabetes mellitus Adiposity obesity Hx Other Medical 2010 Rotator cuff te ar (left); Outcome: improved Depression Depression Hx Other Medical Claustrophobic; Comments: [facility] 11/08/2013 - Chronic coronary artery disease Coronary [...] drink = 0.6 oz pur e alcohol) [facility] Utilities Answer Date Recorded In the past 12 months has [employer], gas, oil, or water [employer] threatened to shut off services in your [...] week 07/27/2023 How often do you attend [facility] or christian services? Never 07/27/2023 Do you belong to any clubs o r organizations such as presybeterian groups, unions, fraternal or athletic groups, or [...] place to sleep or slept in a penitentiary (including now)? No 07/27/2023 Personal Safety Answer Date Recorded Have you ever been in or are you currently in a harmful physical or emotional relationship or is someone making you feel afraid or unsafe? Denies 07/26/2023 Comments No Sex and Gender Information Value Date Recorded Sex Assigned at Not on file Legal Sex Female 11:59 PM CLARIFIER Gender Identity Not on file Sexual Orientation [...] 65+ 2021 Albumin Creatinine Ratio, Urine 03/18/2023 3 Lipid Panel 03/18/2023 03/18/2022, 03/15, 08/05/2015 Hemoglobin A1C 07/08/2023 01/06/2023, 06/14, 03/18/2022, Additional history exists Covid-19 Vaccine (2023-2 5 season) 2023 01/06/2021, 06/25/2020, 06/19/2020, Additional history exists Influenza Vaccine (#1) 2023 0, 01/27/2017, 01/21/2017, Additional history exists Dilated Eye Exam 01/15/2024 01/14/2023, 10/2017, 01/20/2018 Foot Exam 02/18/2024 02/17/2023, 12/14, 07/07/2022, Additional history exists Depression Screening 07/25/2024 07/26/2023, 02/25/20 17 Fall Risk Assessment 08/04/2024 08/05/2023, 07/07/19 24 eGFR 08/04/2024 08/05/2023, 07/14, 08/03/2023, Additional history exists Medical Devices Implanted Type Area Etl Consultant Device Identifier Shelf Expiration Date Model / Serial / Lot Cordis Mynxgrip 6-7fr Balloon Catheter Integrate Sealant Lock Latex Free [id number] - [id number] Implanted:Qty: 1 on 01/07/2023 by Hernando Narayanan MD at [facility] [employer] 10/12/2024 [id number] / / [id number] Procedures Procedure Name Priority Date/Time Associated Diagnosis Comments EGFR Routine 08/05/2023 6:11 AM CDT DIABETIC EYE EXAM Routine 01/14/2023 POCT HEMOGLOBIN A1C Routine 01/06/2023 2 :37 PM CDT Type 2 diabetes mellitus with hyperglycemia, with long-term current use of insulin ([facility]) ([facility]) LIPID PANEL Routine 03/18/2022 10:11 AM CLARIFIER Uncontrolled type 2 diabetes mellitus with hyperglycemia, with long-term current use of insulin ([facility]) ALBUMIN CREATININE RATIO, URINE Routine 03/18/2022 10:11 AM CLARIFIER Uncontrolled type 2 diabetes mellitus with hyperglycemia, with long-term current use of insulin ([facility]) from Last 3 Months or Most Recently Relevant to Health Maintenance Results * (ABNORMAL) eGFR (08/05/2023 6:11 AM CDT) [facility] Signature eGFR 40(L) >=60 mL/min/1. 73 m2 Comment: [...] MD LAB BLOOD ORDERABLES Final Resu lt Performing Organization Address City/State/[facility] Co de Phone Number [facility] [place] [facility] Department [place] [address] * (ABNORMAL) Diabetic Eye Exam (01/14/2023) Historical Provider HEALTH MAINTENANCE Final Result * (ABNORMAL) POCT hemoglobin A1c (01/06/2023 2:37 PM CDT) Hemoglobin A1C, POC 10.6 % Blood 01/06/2023 2:37 PM CDT us Yasemin Gunn TEST DATA DEVELOPER POINT OF CARE TEST ORDERABLES F inal Result * (ABNORMAL) Albumin Creatinine Ratio, Urine (03/18/2022 10:11 AM CLARIFIER) Albumin Ur 2,136.5 mg/L [facility] ([place]) Comment: Interpretive Data No reference range established. Current interpretive data was last revised 2018. Testing performed by: [facility], [address] [place] [address]., [id number] Creatinine Ur 41.1 mg/dL [facility] ([place] Comment: Interpretive Data No reference range established. Current interpretive data was last revised 2018. Testing performed by: [facility], [address] [place] [address]., [id number] Albumin Creatinine Ratio, Ur 5,198(H) 1 - 29 mg/g [facility] ([place] Comment:Testing performed by : [address] [id number] Urine 03/18/2022 10:1 1 AM CLARIFIER 03/18/2022 9:27 PM CLARIFIER Yasemin Gunn TEST DATA DEVELOPER LAB URINE ORDERABLES Final Resu lt [facility] ([place]) [address] [facility] Department [place] [address] * (ABNORMAL) Lipid panel (03/18/2022 10:11 AM CLARIFIER) Cholesterol 243(H) 30 - 199 mg/dL [facility] ([place]) Comment: Interpretive Data Ages < or = [...] 2017. LDL, calculated 168(H) <=129 mg/dL [facility] ([place]) Comment: Interpretive Data [...] on 2017. Non-HDL Cholesterol 201 mg/dL [facility] ([place]) Comment: Interpretive Data [...] revised on 2017. Chol/HDL ratio 6 [facility] ([place]) Blood 03/18/2022 10:1 1 AM CLARIFIER 03/18/2022 1:33 PM CLARIFIER Narrative [facility] ([place]) - 03/18/2022 2:08 PM CLARIFIER These lab test should be done fasting. This means do not eat or drink for at least 12 hours prior to getting your blood drawn. us Ysaemin Gunn TEST DATA DEVELOPER LAB BLOOD ORDERABLES Final Resu lt [facility] [place]) [address] [place] [address] from Last 3 Months or Most Recently Relevant to Health Maintenance Insurance MEDICARE SOLUTIONS MEDICARE [facility] MDCR HMO REF MEDICARE SOLUTIONS MEDICARE * Guarantor: [facility] Account Type Relation to Patient Date of Phone Billing Address Donor Other MEDICARE Advance Directives For more information, please contact: [phone] * Full Code (Latest Code Status on File) Date Activated Date Inactivated Comments 07/27/2023 11:44 AM 08/05/2023 7:27 PM * Full Code Date Activated Date Inactivated Comments 01/07/2023 12:31 PM 01/07/2023 8:21 PM * Full Code Date Activated Date Inactivated Comments 10/31/2021 1:18 PM 10/31/2021 6:49 PM * Full Code Date Activated Date Inactivated Comments 04/28/2019 11:36 AM 04/28/2019 7:08 PM Care Teams Inseam Trimmer Relationship Specialty Start Date End Date Teressa De Jesus PA [address] [place] [id number] PCP - General Physician Confidential Investigator 01/30/22 Teressa De Jesus PA [address] [place] [id number] Physician Confidential Investigator 01/30/22 Hien Amato DPM [address] [place] [id number] Consulting Physician Foot and Ankle Surg 09/28/19
== END 2024-04-14 15:36 | disposition home or self-care (01) ==
LOC: HOME HLTH 15:37
PROVIDERS: PCP Physician Assistant
DX: R78.81 Bacteremia (principal)
CPT/HCPCS: 87077; 87086; 87186

== ENCOUNTER 2024-12-30 11:33 | Emergency (ER) | payer MEDICARE, SELFPAY ==
--- NOTE | ~2024-12-30 | XR_ITS ---
Examination: XR tibia fibula LT 2V, XR foot LT min 3V Clinical History: pain with trauma Comparison: None Technique: 2 views left tibia fibula 4 films, 3 views left foot Findings/impression: Left tibia-fibula: 1. No fracture or other acute bony abnormality. 2. Osteopenia. 3. Diabetic arteriopathy. Left foot: 1. Probable chronic injury first toe, proximal phalanx, distal portion. Acute injury however not excluded and recommend correlation with point tenderness. 2. Otherwise no evidence of fracture or acute osteomyelitis. 3. Amputation distal second toe, third and fourth toes, transmetatarsal fifth toe. 4. Osteopenia. 5. Diabetic arteriopathy. Reviewed, dictated and finalized at location R.
--- NOTE | 2024-12-30 11:41 | ED.LOWEXIN ---
HPI - Extremity Injury (Lower) General Chief Complaint: Extremity Injury, Lower Stated Complaint: Injured L Leg Patient presents to the [facility] spouse with left mcgarry pain that began just prior to arrival at [facility]. Patient noted she was wearing a walking boot due to recent surgery on her foot for a wound. Noted that the boot got stuck in her leg twisted. Noted that she heard a snap unsure if this was leg. Patient noted recent procedure with the foot did not have any pain but now has significant pain to the foot After injury today. Denies any new swelling, bruising, redness. Patient does report taking 2 Tylenol Arthritis today. Patient does note she does have neuropathy but denies any new numbness or tingling. Related Data Home Medications ?Medication ?Instructions ?Recorded ?Confirmed ?Last Taken ?Type atorvastatin 40 mg tablet 40 mg PO DAILY 12/09/21 12/30/24 02/16/24 History hydroxyzine pamoate 50 mg capsule 50 mg PO TID PRN Anxiety 03/30/22 12/30/24 02/17/24 History levothyroxine 125 mcg tablet 137 mcg PO DAILY 04/17/22 12/30/24 02/16/24 History insulin pen,reusable,BT,lispro 12/14/22 02/17/24 Unknown History (InPen (for Humalog) Blue subcutaneous) trazodone 50 mg tablet 50 mg PO HS 10/11/23 12/30/24 02/16/24 History amlodipine 2.5 mg tablet 2.5 mg PO DAILY 02/17/24 12/30/24 02/17/24 History bumetanide 1 mg tablet 1 mg PO BID 02/17/24 12/30/24 02/16/24 History lisinopril 40 mg tablet mg 12/30/24 Unknown History vitamin B complex-vitamin C-folic tablet 12/30/24 Unknown History acid 0.8 mg tablet (Dialyvite 800) Allergies Allergy/AdvReac Type Severity Reaction Status Date / Time semaglutide (From Ozempic) AdvReac Unknown Verified 12/30/24 11:55 Review of Systems Constitutional: Constitutional: Reports as per HPI, Denies chills, Denies fatigue, Denies fever(s) and Denies weakness Eyes: Eyes: Reports no additional eye complaints ENT: Reports system reviewed and no additional complaints, except as documented Cardiovascular: Cardiovascular: Reports no additional cardiovascular complaints Respiratory: Respiratory: Reports no additional respiratory complaints Gastrointestinal: Gastrointestinal: Reports no additional gastrointestinal complaints Genitourinary: Genitourinary: Reports no additional female genitourinary complaints Musculoskeletal: Musculoskeletal: Reports as per HPI, Reports arthralgias, Reports joint swelling and Denies muscle cramps Integumentary/Breasts: Skin/Breast: Reports as per HPI, Denies pruritus, Denies rash and Denies skin ulcer Neurologic: Reports as per HPI, Denies numbness and Denies weakness Psychiatric: Psychiatric: Reports no additional psychiatric complaints Endocrine: Endocrine: Reports no additional endocrine complaints Hematologic/Lymphatic: Hematologic/Lymphatic: Reports no additional hematologic/lymphatic complaints Allergic/Immunologic: Allergic/Immunologic: Reports no additional allergic/immunologic complaints [facility] Past Medical History Medical History Combined systolic and diastolic congestive heart failure Right-sided heart failure Neurogenic bladder Chronic kidney disease Chronic anticoagulation Chronic anemia Insulin dependent type 2 diabetes mellitus Paroxysmal atrial fibrillation Diabetic neuropathy Coronary artery disease Osteomyelitis Hyperlipidemia Hypertension Surgical History Surgical History History of right below knee amputation History of amputation of toe History of hysterectomy History of coronary artery bypass graft Family History Family History Sibling Thymus cancer Diabetes mellitus All 4 siblings Lung cancer, lower lobe Melanoma Lymph edema Mother Family history of emphysema Father Acute myocardial infarction Social History Social History Social History: Surrogate medical decision maker: Trung Mcgrath, daughter. Code status: Full code. Smoking packs per day: 1 Smoking cigarettes per day: 20.0 Years smoked: 30 Smoking pack-years: 30.00 Smoking status: Former smoker Tobacco type: cigarettes Second hand tobacco smoke exposure: Yes ( smokes) Smoking end date: 02/24/07 Alcohol intake: never Substance use: never Substance use type: does not use Do You Feel Safe in your Home?: Yes Lack of Transportation: No Lack of Food: Never True Current Housing: I Have Housing Concerned About Future Housing: No Difficulty Paying Gas/Electric Bills: No Difficulty Paying for Meds: No Currently Unemployed: No Education: High School Diploma/GED Difficulty w/ Childcare or Family Care: No Spiritual care concerns: No Exam Const: General: healthy appearing and no acute distress Nutritional Appearance: well nourished Orientation/consciousness: patient oriented x3 Limitations: no limitations Resp: Effort & Inspection: normal respiratory effort Auscultation: clear to auscultation bilaterally Cardio: Rate: regular rate Rhythm: regular rhythm Skin: General skin exam: normal color Rashes: no rashes Wounds: wounds noted (left mcgarry, left foot- bandaged ) Neuro: General: patient oriented x3 and moves all extremities Speech: normal speech Gait exam (Neuro): gait abnormal (in wheelchair, right below knee amputation noted. ) Extrem: Left lower extremity: lower leg Details: tenderness Location: of the midshaft tibia and of the midshaft fibula and no edema; no abrasions, no lacerations, no ecchymosis, no crepitus and no unusual warmth and foot Details: abnormal to inspection, tenderness Location: of the plantar foot, abnormal ROM of toe, no edema and vascular exam Details: dorsalis pedis pulse present and posterior tibial pulse present; no unusual warmth and no ecchymosis Psych: Mental Status: mental status grossly normal Affect: normal affect Attitude: cooperative Course Course Level of Care: Express Care Visit Vital Signs Vital signs: Vital Signs Temperature 97.7 F 12/30/24 11:58 Pulse Rate 79 12/30/24 11:58 Respiratory Rate 16 12/30/24 11:58 Blood Pressure 182/78 H 12/30/24 11:58 Pulse Oximetry 100 12/30/24 11:58 Oxygen Delivery Room Air 12/30/24 11:58 Temperature 97.7 F 12/30/24 11:58 Pulse Rate 79 12/30/24 11:58 Respiratory Rate 16 12/30/24 11:58 Blood Pressure 182/78 H 12/30/24 11:58 Pulse Oximetry 100 12/30/24 11:58 Oxygen Delivery Room Air 12/30/24 11:58 MDM - Extremity Injury (Lower) MDM Narrative Medical decision making narrative: X-rays ordered The patient was evaluated by myself in the express care. History is obtained from patient who is an independent historian and physical exam was performed. Available medical records were reviewed at this time. Exam findings show no acute concerns or changes; patient is non-toxic appearing and is in no distress. Patient is appropriate for outpatient treatment and follow-up. I have evaluated and discussed social determinants of health with the patient that could potentially impact subsequent diagnosis and treatment plans. Differential diagnosis and treatment plan were discussed with the patient. Patient agrees with discussion and after shared medical decision making agrees with plan of care. All questions were answered to the patient's satisfaction. Differential Diagnosis Differential diagnosis: Likely ankle sprain and strain, puncture wound of foot, fracture of toe and ankle fracture Medical Records Attestation: I reviewed the patient's medical records. Imaging Data Attestation: I personally reviewed and interpreted this imaging study as follows: My impression: no acute findings Radiologist's impression: Left tibia-fibula: 1. No fracture or other acute bony abnormality. 2. Osteopenia. 3. Diabetic arteriopathy. Left foot: 1. Probable chronic injury first toe, proximal phalanx, distal portion. Acute injury however not excluded and recommend correlation with point tenderness. 2. Otherwise no evidence of fracture or acute osteomyelitis. 3. Amputation distal second toe, third and fourth toes, transmetatarsal fifth toe. 4. Osteopenia. 5. Diabetic arteriopathy. Reviewed, dictated and finalized at location R. Discharge Plan Discharge Clinical Impression: Pain in left lower leg, Sprain of foot, left Patient Disposition: Home Condition: Stable Instructions: Antibiotic Form, Foot Sprain (ED), Leg Pain (ED) Additional Instructions: Xray showed no fracture. Minimize activities that aggravate the condition The RICE protocol. Follow the RICE protocol as soon as possible after your injury: Rest your affected limb by not walking on it/not using this. Ice should be immediately applied to keep the swelling down. It can be used for 20 to 30 minutes, three or four times daily. Do not apply ice directly to your skin. Gentle range of motion exercises as tolerated. Compression dressings, bandages or wade-wraps will immobilize and support your injured limb Elevate affected area above the level of your heart if possible as often as possible during the first 48 hours then as needed for increased swelling. Medication: Nonsteroidal anti-inflammatory drugs (NSAIDs) such as ibuprofen and naproxen can help control pain and swelling. Because they improve function by both reducing swelling and controlling pain, they are a better option for mild sprains than narcotic pain medicines. Please schedule a follow-up visit with your personal physician for further evaluation and treatment within 1week OR If your symptoms persist, change or worsen significantly before you can contact your personal physician then please, without delay, go to the emergency department for further evaluation. Patient Language: Croatian Prescriptions: No Action Dialyvite 800 0.8 mg tablet lisinopril 40 mg tablet (DME) InPen (for Humalog) Blue Insulin Pen See Rx Instructions .Route Rx Instructions: As directed 6 Units TID hydroxyzine pamoate 50 mg capsule 50 mg PO TID PRN (Reason: Anxiety) levothyroxine 125 mcg tablet 137 mcg PO DAILY trazodone 50 mg Tablet 50 mg PO HS insulin aspart U-100 [Novolog U-100 Insulin aspart] 100 unit/mL Solution 3 - 6 unit subcut TIDWM Qty: 30 0RF Protocol: Insulin Corrective Moderate-Dose Condition: glucose < 70 mg/dl Dose/Route: Follow hypoglycemia orders Condition: glucose 70-200 mg/dl Dose/Route: No additional insulin Condition: glucose 201-250 mg/dl Dose/Route: 3 units sub-Q Condition: glucose 251-300 mg/dl Dose/Route: 4 units sub-Q Condition: glucose 301-350 mg/dl Dose/Route: 5 units sub-Q Condition: glucose 351-400 mg/dl Dose/Route: 6 units sub-Q Condition: glucose > 400 mg/dl Dose/Route: Call MD Protocol Text: *No Correction Dose at Bedtime* famotidine 40 mg tablet 20 mg PO DAILY Qty: 90 0RF insulin degludec [Tresiba FlexTouch U-100] 100 unit/mL (3 mL) Insulin Pen 8 unit SUBCUT HS Qty: 3 0RF Eliquis 5 mg Tablet 2.5 mg PO BID Qty: 30 0RF atorvastatin 40 mg tablet 40 mg PO DAILY amlodipine 2.5 mg tablet 2.5 mg PO DAILY bumetanide 1 mg tablet 1 mg PO BID Follow-up/Referrals: Neal,EFRAÍN Gannon [Primary Care Provider, Unknown] Time of Disposition: 12:43
[2024-12-30 11:58] VITALS: BP 182/78; PULSE 79; RESP 16; TEMP 36.5; O2SAT 100
== END 2024-12-30 12:53 | disposition home or self-care (01) ==
PROVIDERS: Emergency Provider Nurse Practitioner Family; PCP Physician Assistant
DX: M79.662 Pain in left lower leg (principal); S93.602A Unspecified sprain of left foot, initial encounter; X50.1XXA Overexertion from prolonged static or awkward postures, initial encounter; Y93.9 Activity, unspecified; I13.0 Hypertensive heart and chronic kidney disease with heart failure and stage 1 through stage 4 chronic kidney disease, or unspecified chronic kidney disease; E11.22 Type 2 diabetes mellitus with diabetic chronic kidney disease; N18.9 Chronic kidney disease, unspecified; I50.40 Unspecified combined systolic (congestive) and diastolic (congestive) heart failure; Z79.4 Long term (current) use of insulin; N31.9 Neuromuscular dysfunction of bladder, unspecified; I48.0 Paroxysmal atrial fibrillation; E11.42 Type 2 diabetes mellitus with diabetic polyneuropathy; I25.10 Atherosclerotic heart disease of native coronary artery without angina pectoris; E78.5 Hyperlipidemia, unspecified; Z89.511 Acquired absence of right leg below knee; Z95.1 Presence of aortocoronary bypass graft; Z79.01 Long term (current) use of anticoagulants
CPT/HCPCS: 73590; 73630; 99214; G0463

== ENCOUNTER 2025-01-03 14:45 | Emergency (ER) | payer MEDICARE, SELFPAY ==
--- NOTE | ~2025-01-03 | XR_ITS ---
XR finger 5th LT min 2V INDICATION: pain COMPARISON: None FINDINGS: Frontal, lateral and oblique views of the fifth finger demonstrate no acute fracture or dislocation. IMPRESSION: No acute fracture or dislocation. Reviewed, dictated and finalized at location S.
[2025-01-03 14:55] VITALS: BP 183/61; PULSE 66; RESP 16; TEMP 36.3; O2SAT 99
--- NOTE | 2025-01-03 15:33 | ED.EXTPRO ---
HPI - Extremity Problem General Chief complaint: Extremity Problem,Nontraumatic Stated complaint: L FINGER REDNESS Time Seen by Provider: 01/03/25 15:33 Source: patient Mode of arrival: ambulatory Limitations: no limitations History of Present Illness HPI Narrative: 69 yo F presents with infection to L little finger. Pt states she gave herself a papercut. Noticed redness and swelling that is getting progressively worse over past few days. Hx of DM. ROM and distal NV intact. All systems reviewed and negative except as noted above. Related Data Home Medications ?Medication ?Instructions ?Recorded ?Confirmed ?Last Taken ?Type atorvastatin 40 mg tablet 40 mg PO DAILY 12/09/21 12/30/24 02/16/24 History hydroxyzine pamoate 50 mg capsule 50 mg PO TID PRN Anxiety 03/30/22 12/30/24 02/17/24 History levothyroxine 125 mcg tablet 137 mcg PO DAILY 04/17/22 12/30/24 02/16/24 History insulin pen,reusable,BT,lispro 12/14/22 02/17/24 Unknown History (InPen (for Humalog) Blue subcutaneous) trazodone 50 mg tablet 50 mg PO HS 10/11/23 12/30/24 02/16/24 History amlodipine 2.5 mg tablet 2.5 mg PO DAILY 02/17/24 12/30/24 02/17/24 History bumetanide 1 mg tablet 1 mg PO BID 02/17/24 12/30/24 02/16/24 History lisinopril 40 mg tablet mg 12/30/24 Unknown History vitamin B complex-vitamin C-folic tablet 12/30/24 Unknown History acid 0.8 mg tablet (Dialyvite 800) Allergies Allergy/AdvReac Type Severity Reaction Status Date / Time semaglutide (From Ozempic) AdvReac Unknown Verified 01/03/25 15:01 [facility] Past Medical History Medical History Combined systolic and diastolic congestive heart failure Right-sided heart failure Neurogenic bladder Chronic kidney disease Chronic anticoagulation Chronic anemia Insulin dependent type 2 diabetes mellitus Paroxysmal atrial fibrillation Diabetic neuropathy Coronary artery disease Osteomyelitis Hyperlipidemia Hypertension Surgical History Surgical History History of right below knee amputation History of amputation of toe History of hysterectomy History of coronary artery bypass graft Family History Family History Sibling Thymus cancer Diabetes mellitus All 4 siblings Lung cancer, lower lobe Melanoma Lymph edema Mother Family history of emphysema Father Acute myocardial infarction Social History Social History Social History: Surrogate medical decision maker: Trung Mcgrath, daughter. Code status: Full code. Smoking packs per day: 1 Smoking cigarettes per day: 20.0 Years smoked: 30 Smoking pack-years: 30.00 Smoking status: Former smoker Tobacco type: cigarettes Second hand tobacco smoke exposure: Yes ( smokes) Smoking end date: 02/24/07 Alcohol intake: never Substance use: never Substance use type: does not use Do You Feel Safe in your Home?: Yes Lack of Transportation: No Lack of Food: Never True Current Housing: I Have Housing Concerned About Future Housing: No Difficulty Paying Gas/Electric Bills: No Difficulty Paying for Meds: No Currently Unemployed: No Education: High School Diploma/GED Difficulty w/ Childcare or Family Care: No Spiritual care concerns: No Comments At time of signature, agree with nursing past medical, surgical, social and family history. There is no relevant family history pertinent to the presenting complaint. Exam Narrative: GENERAL: This is a well-nourished, well-developed patient, in no apparent distress. HEAD: normocephalic, atraumatic. EYES: PERRL. Sclera clear/white. Vision is grossly intact. EARS: External ears normal NOSE: External nose normal NECK: Neck supple, non-tender without lymphadenopathy, masses or thyromegaly. CARDIOVASCULAR: Regular rate and rhythm without murmurs, gallops, or rubs. RESPIRATORY: Clear to auscultation. Breath sounds equal bilaterally. No wheezes, rales, or rhonchi. SKIN: warm, Dry, intact with no suspicious lesions or rash, good texture and turgor. Erythema to distal aspect of left little finger with 1 cm diameter open wound. Yellowish drainage. Range of motion and distal intact. NEURO: awake, alert, and oriented to person, place and time. There were no obvious focal neurologic abnormalities. EXTREMITIES: No joint tenderness, effusion, or edema noted. Course Course Level of Care: Express Care Visit Vital Signs Vital signs: Vital Signs Temperature 36.3 C L 01/03/25 14:55 Pulse Rate 66 01/03/25 14:55 Respiratory Rate 16 01/03/25 14:55 Blood Pressure 183/61 H 01/03/25 14:55 Pulse Oximetry 99 01/03/25 14:55 Temperature 36.3 C L 01/03/25 14:55 Pulse Rate 66 01/03/25 14:55 Respiratory Rate 16 01/03/25 14:55 Blood Pressure 183/61 H 01/03/25 14:55 Pulse Oximetry 99 01/03/25 14:55 Reviewed MDM - Extremity (Nontraumatic) MDM Narrative Medical decision making narrative: X-ray of left little finger negative for osteomyelitis. Will treat wound infection with antibiotic. Recommend follow-up with primary care physician. Imaging Data My impression: Agree with radiologist Radiologist's impression: XR finger 5th LT min 2V INDICATION: pain COMPARISON: None FINDINGS: Frontal, lateral and oblique views of the fifth finger demonstrate no acute fracture or dislocation. IMPRESSION: No acute fracture or dislocation. Discharge Plan Discharge Clinical Impression: Superficial injury of left little finger with infection Patient Disposition: Home Condition: Stable Instructions: Antibiotic Form, Wound Infection (ED) Additional Instructions: Take antibiotic as prescribed until gone. Keep wound clean and dry. Wash with soap and water at least twice a day. Apply antibiotic ointment twice a day. Follow-up with primary care physician if not improving. Patient Language: Spanish Prescriptions: New doxycycline hyclate 100 mg capsule 100 mg PO BID 7 Days Qty: 14 0RF mupirocin 2 % ointment 1 applic topical BID 7 Days Qty: 15 0RF No Action Dialyvite 800 0.8 mg tablet lisinopril 40 mg tablet (DME) InPen (for Humalog) Blue Insulin Pen See Rx Instructions .Route Rx Instructions: As directed 6 Units TID hydroxyzine pamoate 50 mg capsule 50 mg PO TID PRN (Reason: Anxiety) levothyroxine 125 mcg tablet 137 mcg PO DAILY trazodone 50 mg Tablet 50 mg PO HS insulin aspart U-100 [Novolog U-100 Insulin aspart] 100 unit/mL Solution 3 - 6 unit subcut TIDWM Qty: 30 0RF Protocol: Insulin Corrective Moderate-Dose Condition: glucose < 70 mg/dl Dose/Route: Follow hypoglycemia orders Condition: glucose 70-200 mg/dl Dose/Route: No additional insulin Condition: glucose 201-250 mg/dl Dose/Route: 3 units sub-Q Condition: glucose 251-300 mg/dl Dose/Route: 4 units sub-Q Condition: glucose 301-350 mg/dl Dose/Route: 5 units sub-Q Condition: glucose 351-400 mg/dl Dose/Route: 6 units sub-Q Condition: glucose > 400 mg/dl Dose/Route: Call Protocol Text: *No Correction Dose at Bedtime* famotidine 40 mg tablet 20 mg PO DAILY Qty: 90 0RF insulin degludec [Tresiba FlexTouch U-100] 100 unit/mL (3 mL) Insulin Pen 8 unit SUBCUT HS Qty: 3 0RF Eliquis 5 mg Tablet 2.5 mg PO BID Qty: 30 0RF atorvastatin 40 mg tablet 40 mg PO DAILY amlodipine 2.5 mg tablet 2.5 mg PO DAILY bumetanide 1 mg tablet 1 mg PO BID Follow-up/Referrals: Neal,EFRAÍN Gannon [Primary Care Provider, Unknown] Time of Disposition: 16:00
[2025-01-03 16:09] VITALS: BP 170/76; PULSE 67
== END 2025-01-03 16:09 | disposition home or self-care (01) ==
PROVIDERS: Emergency Provider Nurse Practitioner Family; PCP Physician Assistant
DX: S60.947A Unspecified superficial injury of left little finger, initial encounter (principal); L08.9 Local infection of the skin and subcutaneous tissue, unspecified; W26.2XXA Contact with edge of stiff paper, initial encounter; Z87.891 Personal history of nicotine dependence; I13.0 Hypertensive heart and chronic kidney disease with heart failure and stage 1 through stage 4 chronic kidney disease, or unspecified chronic kidney disease; E11.22 Type 2 diabetes mellitus with diabetic chronic kidney disease; N18.9 Chronic kidney disease, unspecified; I50.40 Unspecified combined systolic (congestive) and diastolic (congestive) heart failure; Z79.4 Long term (current) use of insulin; E11.42 Type 2 diabetes mellitus with diabetic polyneuropathy; I48.0 Paroxysmal atrial fibrillation; I25.10 Atherosclerotic heart disease of native coronary artery without angina pectoris; Z89.511 Acquired absence of right leg below knee; Z95.1 Presence of aortocoronary bypass graft; Z79.01 Long term (current) use of anticoagulants
CPT/HCPCS: 73140; 99213; G0463